=== PATIENT | female | born 1950 | race Caucasian/White ===

== ENCOUNTER → 2016-07-04 | Outpatient (CLI) | payer MEDICARE ==
--- NOTE | 2016-07-04 15:04 | BD ---
EXAMINATION TYPE: MG DEXA axial skeleton. DATE OF EXAM: 07/04/2016 1:49 PM COMPARISON: NONE CLINICAL HISTORY: Osteoporosis screening, Z 13.820 Height: 64 Weight: 127.1 FRAX RISK QUESTIONS: Alcohol (3 or more units per day): no Family History (Parent hip fracture): no Glucocorticoids (More than 3mos): no (Ex: prednisone, prednisolone, methylprednisolone, dexamethasone, and hydrocortisone). History of Fracture in Adulthood: no Secondary Osteoporosis: 1. Type 1 Diabetes: no 2. Hyperthyroidism: no 3. Menopause before 45: yes 4. Malnutrition: no 5. Chronic liver disease: no Rheumatoid Arthritis: no Current Tobacco Use: yes RISK FACTORS HISTORY OF: Hip Fracture (Right/Left): no Spine Fracture: no History of Wrist Fracture: no Surgery to Spine/Hip(right/left)/Wrist (right/left): no Family History of Osteoporosis: no Active: yes Diet low in dairy products/other sources of calcium: yes Postmenopausal woman: around age 41 Lost more than 2 inches in height since high school: no Frequent falls: no Adrenal Insufficiency: no MEDICATIONS: Prednisone or other steroids: How Long: Thyroid Medications: Which medication: How Long: Osteoporosis Medications: Which medication: How Long: Additional Medications: Additional History: EXAM MEASUREMENTS: Bone mineral densitometry was performed using the Tag & See System. Bone mineral density as measured about the Lumbar spine is: ----- L1-L4(G/cm2): 0.893 T Score Values are as follows: ----- L2: -2.5 ----- L3: -1.9 ----- L4: -2.6 ----- L1-L4: --2.4 Bone mineral density has: increased 3.0% since study of: 03.01.2014 Bone mineral density about the R hip (g/cm2): 0.698 Bone mineral density about the L hip (g/cm2): 0.719 T Score values are as follows: -----R Neck: -2.3 -----L Neck: -2.4 -----R Total: -2.8 -----L Total: -2.8 Bone mineral density has: decreased -12.1 % since study of: 03.01.2014 IMPRESSION: Osteopenia NOTE: T-SCORE=SD OF THE YOUNG ADULT MEAN.
--- NOTE | 2016-07-05 15:50 | MM ---
Reason for exam: screening (asymptomatic). Last mammogram was performed 1 year and 2 months ago. History: Patient is postmenopausal. Took estrogen for 10 years. Took progesterone for 10 years. Physical Findings: A clinical breast exam by your physician is recommended on an annual basis and results should be correlated with mammographic findings. MG 3D Screening Mammo W/Cad Bilateral CC and MLO view(s) were taken. Prior study comparison: May 01, 2015, bilateral MG 3d diag mammo w/cad ALESHA. October 26, 2014, right breast MG diagnostic mammo RT w CAD. There are scattered fibroglandular densities. No significant changes when compared with prior studies. ASSESSMENT: Benign, BI-RAD 2 RECOMMENDATION: Routine screening mammogram of both breasts in 1 year.
== END | disposition home or self-care (01) ==
LOC: RADMAMWWP 12:44
PROVIDERS: ATTEND Family Medicine
DX: Z12.31 Encounter for screening mammogram for malignant neoplasm of breast (principal); M85.80 Other specified disorders of bone density and structure, unspecified site
CPT/HCPCS: 77080; 77063; G0202

== ENCOUNTER → 2016-07-05 | Outpatient (CLI) | payer MEDICARE ==
--- NOTE | 2016-07-05 13:03 | CTL ---
EXAMINATION TYPE: CT Low Dose Lung DATE OF EXAM ORDERED: 07/05/2016 12:33 PM HISTORY: Lung cancer screening CT DLP: 47.[address] CTDI: 1.4 mGy Automated exposure control for dose reduction was used. SCREENING VISIT: First COMPARISON: None TECHNIQUE: Low dose computed tomography scan was performed through the chest at 1 mm thick sections a nd reconstructed images in the coronal plane at [address] DIAGNOSTIC QUALITY: Satisfactory FINDINGS: LUNG NODULES: None. LUNGS: COPD: Severity: Severe Fibrosis: Severity: Mild Lymph nodes: Shotty mediastinal lymph nodes Other findings: Apical scarring bilaterally RIGHT PLEURAL SPACE: Effusion: None Calcification: None Thickening: None Pneumothorax: None LEFT PLEURAL SPACE: Effusion: None Calcification: None Thickening: None Pneumothorax: None HEART: Heart Size: Normal Coronary calcification: Mild to moderate Pericardial effusion: None OTHER FINDINGS: Upper abdomen: Normal as seen Bony thorax: Sclerotic endplate changes Supraclavicular region: Unremarkable Other: None IMPRESSION: 1. SEVERE COPD AND EMPHYSEMATOUS CHANGE WITH MILD FIBROSIS. 2. MILD TO MODERATE CORONARY ARTERY CALCIFICATION. FOLLOW UP CT CHEST RECOMMENDATION: [address] LUNG RAD: 1
== END | disposition home or self-care (01) ==
LOC: RADCTMAIN 11:17
PROVIDERS: ATTEND Family Medicine
DX: Z12.2 Encounter for screening for malignant neoplasm of respiratory organs (principal); J43.9 Emphysema, unspecified; J84.10 Pulmonary fibrosis, unspecified; I25.10 Atherosclerotic heart disease of native coronary artery without angina pectoris; Z87.891 Personal history of nicotine dependence

== ENCOUNTER → 2017-07-22 | Outpatient (CLI) | payer MEDICARE ==
--- NOTE | 2017-07-24 12:06 | MM ---
Reason for exam: screening (asymptomatic). Last mammogram was performed 1 year and 1 month ago. History: Patient is postmenopausal. Took estrogen for 10 years. Took progesterone for 10 years. Physical Findings: A clinical breast exam by your physician is recommended on an annual basis and results should be correlated with mammographic findings. MG Screening Mammo w CAD Bilateral CC and MLO view(s) were taken. Prior study comparison: July 04, 2016, bilateral MG 3d screening mammo w/cad. May 01, 2015, bilateral MG 3d diag mammo w/cad ALESHA. The breast tissue is heterogeneously dense. This may lower the sensitivity of mammography. No significant changes when compared with prior studies. ASSESSMENT: Benign, BI-RAD 2 RECOMMENDATION: Routine screening mammogram of both breasts in 1 year.
== END | disposition home or self-care (01) ==
LOC: RADMAMWWP 07:34
PROVIDERS: ATTEND Family Medicine
DX: Z12.31 Encounter for screening mammogram for malignant neoplasm of breast (principal)
CPT/HCPCS: 77067

== ENCOUNTER → 2018-07-31 | Outpatient (CLI) | payer MEDICARE ==
--- NOTE | 2018-07-31 11:58 | BD ---
EXAMINATION TYPE: Axial Bone Density DATE OF EXAM: 07/31/2018 COMPARISON: 07.04.2016 CLINICAL HISTORY: 67 YR OLD FEMALE ICD-10 CODE: M81.0 OSTEOPOROSIS Height: 62.5 Weight: 144 FRAX RISK QUESTIONS: Glucocorticoids (More than 3mos): YES (Ex: prednisone, prednisolone, methylprednisolone, dexamethasone, and hydrocortisone). History of Fracture in Adulthood: YES Current Tobacco Use: YES RISK FACTORS HISTORY OF: HX OF FOOT FX > 50 YRS OLD History of Wrist Fracture: RT [employer] CHILD Family History of Osteoporosis: UNSURE Diet low in dairy products/other sources of calcium: YES Postmenopausal woman: YES, HYST AT 49 YRS OLD Take estrogen and/or progesterone medications: YES, FOR 10 YRS IN THE PAST Lost more than 2 inches in height since high school: YES MEDICATIONS: Prednisone or other steroids: COPD INHALERS, AND ORAL STEROIDS FOR MANY YRS Osteoporosis Medications: PROLIA, FOR A LONG TIME Additional Medications: CALCIUM AND VIT D, REFLUX MEDS Additional History: REFLUX, COPD, OSTEOPOROSIS EXAM MEASUREMENTS: Bone mineral densitometry was performed using the Post-i System. Bone mineral density as measured about the Lumbar spine is: ----- L1-L4(G/cm2): 0.965 T Score Values are as follows: ----- L1: -2.2 ----- L2: -1.7 ----- L3: -1.0 ----- L4: -2.3 ----- L1-L4: -1.8 Bone mineral density has: Increased 7.9% since study of: 07.04.2016 Bone mineral density about the R hip (g/cm2): 0.698 Bone mineral density about the L hip (g/cm2): 0.700 T Score values are as follows: -----R Neck: -2.7 -----L Neck: -2.8 -----R Total: - 2.5 -----L Total: -2.4 Bone mineral density has: Increased 6.7% since study of: 07.04.2016 FRAX%s: THERE IS A 41.9% CHANCE FOR A MAJOR OSTEOPOROTIC FX AND A 20.2% FOR HIP....PROBABILITY FOR FX IN 10 YRS TIME IMPRESSION: Osteoporosis (T Score less than -2.5). There is increased fracture risk and therapy is usually indicated based on age. Re-Screen 1-2 years. NOTE: T-SCORE=SD OF THE YOUNG ADULT MEAN.
--- NOTE | 2018-08-03 08:58 | MM ---
Reason for exam: screening (asymptomatic). Last mammogram was performed 1 year ago. History: Patient is postmenopausal. Took estrogen for 10 years. Took progesterone for 10 years. Physical Findings: A clinical breast exam by your physician is recommended on an annual basis and results should be correlated with mammographic findings. MG 3D Screening Mammo W/Cad Bilateral CC and MLO view(s) were taken. Prior study comparison: July 22, 2017, bilateral MG screening mammo w CAD. July 04, 2016, bilateral MG 3d screening mammo w/cad. The breast tissue is heterogeneously dense. This may lower the sensitivity of mammography. Benign appearing bilateral calcifications. No suspicious abnormality. No significant changes when compared with prior studies. ASSESSMENT: Benign, BI-RAD 2 RECOMMENDATION: Routine screening mammogram of both breasts in 1 year.
== END | disposition home or self-care (01) ==
LOC: RADMAMWWP 09:17
PROVIDERS: ATTEND Family Medicine
DX: Z12.31 Encounter for screening mammogram for malignant neoplasm of breast (principal); M81.0 Age-related osteoporosis without current pathological fracture
CPT/HCPCS: 77063; 77067; 77080

== ENCOUNTER → 2019-10-15 | Outpatient (CLI) | payer MEDICARE ==
--- NOTE | 2019-10-15 10:08 | US ---
EXAMINATION TYPE: US abdomen complete DATE OF EXAM: 10/15/2019 COMPARISON: CT CLINICAL HISTORY: D73.9 CYST OF SPLEEN. Cyst visualized on spleen EXAM MEASUREMENTS: Liver Length: 16.7 cm Gallbladder Wall: 0.2 cm CBD: 0.5 cm Spleen: 8.9 cm Right Kidney: 12.0 x 4.9 x 4.9 cm Left Kidney: 6.1 x 3.0 x 2.9 cm Pancreas: wnl Liver: wnl Gallbladder: wnl Evidence for sonographic Virk's sign: No CBD: wnl Spleen: Cyst= 4.4 x 3.6 x 3.8 cm Right Kidney: wnl Left Kidney: Appeared atrophic Upper IVC: wnl Abd Aorta: wnl, distal portion gassed out IMPRESSION: 1. Splenic cyst. 2. Atrophy of the left kidney
== END | disposition home or self-care (01) ==
LOC: RADUSWWP 09:29
PROVIDERS: ATTEND Family Medicine
DX: D73.4 Cyst of spleen (principal); N26.1 Atrophy of kidney (terminal)
CPT/HCPCS: 76700

== ENCOUNTER 2020-04-10 11:46 | Observation (INO) | payer MEDICARE ==
[2020-04-10] MEDS ORDERED: IPRATROPIUM-ALBUTEROL 3 ML NEB INHALATION STA ×2 (12:02→14:22)
[2020-04-10] MEDS ORDERED: methylPREDNISolone SOD SUCCI 125 MG/2 ML VIAL IV STA (12:02)
--- NOTE | 2020-04-10 12:13 | ED ---
General Adult HPI - General Chief complaint: Shortness of Breath Stated complaint: SOB Time Seen by Provider: 04/10/20 11:52 Source: patient, family, RN notes reviewed Mode of arrival: wheelchair Limitations: no limitations - History of Present Illness Initial comments: 69-year-old female presented from from PCPs office chief complaint shortness of breath. Patient has COPD and currently smokes. Patient's been having increased shortness with the last several weeks she did take a fall over a week or 2 ago which she states she injured her left side of her ribs. Patient states that she has not had any pleuritic pain this time. Patient denies any fever, chills or body aches. No leg swelling no history of CHF. Patient denies any headache, dizziness. - Related Data Home Medications Medication Instructions Recorded Confirmed Mometasone/Formoterol [Dulera 200 2 puff INHALATION RT-BID 05/13/14 04/10/20 Mcg/5 Mcg Inhaler] Omeprazole [PriLOSEC] 20 mg PO AC-SUPPER 04/26/15 04/10/20 Albuterol Sulfate [Proair Hfa] 1 - 2 puff INHALATION RT-Q6H PRN 04/10/20 04/10/20 Denosumab [Prolia] 60 mg SQ Q180D 04/10/20 04/10/20 Tiotropium 18 Mcg/Puff [Spiriva] 1 puff INHALATION RT-DAILY 04/10/20 04/10/20 Allergies Allergy/AdvReac Type Severity Reaction Status Date / Time No Known Allergies Allergy Verified 04/10/20 13:15 Review of Systems ROS Statement: Those systems with pertinent positive or pertinent negative responses have been documented in the HPI. ROS Other: All systems not noted in ROS Statement are negative. Past Medical History Past Medical History: COPD Additional Past Medical History / Comment(s): STATES ONLY 1 WORKING KIDNEY, HIATAL HERNIA, DIFFICULTY SWALLOWING. History of Any Multi-Drug Resistant Organisms: None Reported Past Surgical History: Hernia Repair, Hysterectomy Additional Past Surgical History / Comment(s): INGUINAL HERNIA. Past Anesthesia/Blood Transfusion Reactions: Postoperative Nausea & Vomiting (PONV) Past Psychological History: No Psychological Hx Reported Smoking Status: Current every day smoker Past Alcohol Use History: Rare Past Drug Use History: None Reported General Exam Limitations: no limitations General appearance: alert, in no apparent distress Head exam: Present: atraumatic, normocephalic, normal inspection Eye exam: Present: normal appearance, PERRL, EOMI. Absent: scleral icterus, conjunctival injection, periorbital swelling ENT exam: Present: normal exam, mucous membranes moist Neck exam: Present: normal inspection. Absent: tenderness, meningismus, lymphadenopathy Respiratory exam: Present: respiratory distress (Moderate), wheezes, decreased breath sounds. Absent: normal lung sounds bilaterally, rales, rhonchi, stridor Cardiovascular Exam: Present: normal rhythm, tachycardia, normal heart sounds. Absent: systolic murmur, diastolic murmur, rubs, gallop, clicks GI/Abdominal exam: Present: soft, normal bowel sounds. Absent: distended, tenderness, guarding, rebound, rigid Back exam: Absent: CVA tenderness (R), CVA tenderness (L) Neurological exam: Present: alert, oriented X3, CN II-XII intact Skin exam: Present: warm, dry, intact, normal color. Absent: rash Course Vital Signs 04/10/20 11:46 Temperature 98.5 F Pulse Rate 104 H Respiratory 28 H Rate Blood Pressure 147/76 O2 Sat by Pulse 85 L Oximetry EKG Findings - EKG Comments: EKG Findings:: EKG performed at 12:05 normal sinus rhythm rate of 100 LA 116 QRS 72 QT status QTC 352/454 Medical Decision Making - Medical Decision Making 61-year-old presented for shortness breath. Patient's found to be hypoxic upon arrival. Patient does have Severe COPD 3 patient continues to have difficulty completing sentences with her shortness of breath sSignificantlyly improved after DuoNeb treatment, steroids. Patient will be admitted for further treatment and management. - Lab Data Result diagrams: 04/10/20 12:06 04/10/20 12:06 Lab Results 04/10/20 04/10/20 04/10/20 Range/Units 12:06 12:06 12:06 WBC 11.3 H (3.8-10.6) k/uL RBC 5.10 (3.80-5.40) m/uL Hgb 15.2 (11.4-16.0) gm/dL Hct 47.8 H (34.0-46.0) % MCV 93.6 (80.0-100.0) fL MCH 29.7 (25.0-35.0) pg MCHC 31.7 (31.0-37.0) g/dL RDW 14.3 (11.5-15.5) % Plt Count 316 (150-450) k/uL MPV 7.4 Neutrophils % 80 % Lymphocytes % 14 % Monocytes % 4 % Eosinophils % 2 % Basophils % 1 % Neutrophils # 9.0 H (1.3-7.7) k/uL Lymphocytes # 1.5 (1.0-4.8) k/uL Monocytes # 0.4 (0-1.0) k/uL Eosinophils # 0.2 (0-0.7) k/uL Basophils # 0.1 (0-0.2) k/uL PT 9.9 (9.0-12.0) sec INR 0.9 (<1.2) APTT 24.8 (22.0-30.0) sec Sodium 140 (137-145) mmol/L Potassium 5.4 H (3.5-5.1) mmol/L Chloride 103 (98-107) mmol/L Carbon Dioxide 27 (22-30) mmol/L Anion Gap 10 mmol/L BUN 26 H (7-17) mg/dL Creatinine 0.92 (0.52-1.04) mg/dL Est GFR (CKD-EPI)AfAm 74 (>60 ml/min/1.73 sqM) Est GFR (CKD-EPI)NonAf 64 (>60 ml/min/1.73 sqM) Glucose 118 H (74-99) mg/dL Plasma Lactic Acid Javier (0.7-2.0) mmol/L Calcium 9.9 (8.4-10.2) mg/dL Magnesium 1.8 (1.6-2.3) mg/dL Total Bilirubin 0.8 (0.2-1.3) mg/dL AST 39 H (14-36) U/L ALT 23 (4-34) U/L Alkaline Phosphatase 60 (38-126) U/L Troponin I (0.000-0.034) ng/mL NT-Pro-B Natriuret Pep pg/mL Total Protein 7.9 (6.3-8.2) g/dL Albumin 4.1 (3.5-5.0) g/dL 04/10/20 04/10/20 04/10/20 Range/Units 12:06 12:06 12:06 WBC (3.8-10.6) k/uL RBC (3.80-5.40) m/uL Hgb (11.4-16.0) gm/dL Hct (34.0-46.0) % MCV (80.0-100.0) fL MCH (25.0-35.0) pg MCHC (31.0-37.0) g/dL RDW (11.5-15.5) % Plt Count (150-450) k/uL MPV Neutrophils % % Lymphocytes % % Monocytes % % Eosinophils % % Basophils % % Neutrophils # (1.3-7.7) k/uL Lymphocytes # (1.0-4.8) k/uL Monocytes # (0-1.0) k/uL Eosinophils # (0-0.7) k/uL Basophils # (0-0.2) k/uL PT (9.0-12.0) sec INR (<1.2) APTT (22.0-30.0) sec Sodium (137-145) mmol/L Potassium (3.5-5.1) mmol/L Chloride (98-107) mmol/L Carbon Dioxide (22-30) mmol/L Anion Gap mmol/L BUN (7-17) mg/dL Creatinine (0.52-1.04) mg/dL Est GFR (CKD-EPI)AfAm (>60 ml/min/1.73 sqM) Est GFR (CKD-EPI)NonAf (>60 ml/min/1.73 sqM) Glucose (74-99) mg/dL Plasma Lactic Acid Javier 1.2 (0.7-2.0) mmol/L Calcium (8.4-10.2) mg/dL Magnesium (1.6-2.3) mg/dL Total Bilirubin (0.2-1.3) mg/dL AST (14-36) U/L ALT (4-34) U/L Alkaline Phosphatase (38-126) U/L Troponin I <0.012 (0.000-0.034) ng/mL NT-Pro-B Natriuret Pep 210 pg/mL Total Protein (6.3-8.2) g/dL Albumin (3.5-5.0) g/dL Disposition Clinical Impression: COPD with exacerbation, Hypoxia Disposition: ADMITTED IP TO THIS HOSP Condition: Poor Is patient prescribed a controlled substance at d/c from ED?: No Referrals: Carolyn Mahmood DO [Primary Care Provider] - 1-2 days
[2020-04-10] MEDS ORDERED: TIOTROPIUM 2.5 MCG INHALER (MHU) INHALATION ONE (12:30)
[2020-04-10] MEDS ORDERED: ALBUTEROL HFA INHALER INHALATION ONE (12:30)
[2020-04-10 12:44] LABS: Basophils # (A) 0.1 k/uL (0-0.2); Basophils % (A) 1 %; Eosinophils # (A) 0.2 k/uL (0-0.7); Eosinophils % (A) 2 %; HCT 47.8 % (34.0-46.0); HGB 15.2 gm/dL (11.4-16.0); Lymphocytes # (A) 1.5 k/uL (1.0-4.8); Lymphocytes % (A) 14 %; MCH 29.7 pg (25.0-35.0); MCHC 31.7 g/dL (31.0-37.0); MCV 93.6 fL (80.0-100.0); Mean Platelet Volume 7.4; Monocytes # (A) 0.4 k/uL (0-1.0); Monocytes % (A) 4 %; Neutrophils % (A) 80 %; Platelet Count 316 k/uL (150-450); RDW 14.3 % (11.5-15.5); WBC 11.3 k/uL (3.8-10.6)
[2020-04-10 12:51] LABS: INR 0.9 (<1.2); Partial Thromboplastin Time 24.8 sec (22.0-30.0); Prothrombin Time 9.9 sec (9.0-12.0)
--- NOTE | 2020-04-10 13:02 | XR ---
EXAMINATION TYPE: XR chest 2V DATE OF EXAM: 04/10/2020 COMPARISON: 07/29/2011 HISTORY: 65-year-old female shortness of breath, cough, difficulty breathing TECHNIQUE: PA and lateral views FINDINGS: Leftward patient rotation alters normal cardiac and mediastinal contours. Heart appears normal size. Relative upper lung lucencies. Diffuse interstitial prominence with some patchy bilateral infrahilar opacities. Hyperinflation. No pleural effusion. IMPRESSION: Limited rotated exam. COPD would moderate to advanced emphysema. Interstitial changes could reflect b ronchitis or chronic asthma. If concern for early atypical pneumonia follow-up can be performed.
[2020-04-10 13:03] LABS: Albumin 4.1 g/dL (3.5-5.0); Calcium 9.9 mg/dL (8.4-10.2); Magnesium 1.8 mg/dL (1.6-2.3); Total Bilirubin 0.8 mg/dL (0.2-1.3); Total Protein 7.9 g/dL (6.3-8.2)
[2020-04-10 13:09] LABS: Potassium 5.4 mmol/L (3.5-5.1)
[2020-04-10] MEDS ORDERED: guaiFENesin-DM 100-10MG/5ML 10 ML CUP PO PRN (15:10)
[2020-04-10] MEDS ORDERED: DENOSUMAB 60 MG/ML 1 ML SYRINGE SQ SCH (15:15)
[2020-04-10] MEDS: AZITHROMYCIN 500 MG TAB PO SCH (16:24)
[2020-04-10] MEDS: PANTOPRAZOLE 40 MG TABLET PO SCH (17:46)
[2020-04-10] MEDS: SYMBICORT 160-4.5 MCG INHALER INHALATION SCH (19:55)
[2020-04-10] MEDS: IPRATROPIUM-ALBUTEROL 3 ML NEB INHALATION SCH (19:55)
[2020-04-10] MEDS: methylPREDNISolone SOD SUCCI 40 MG/ML 1 ML VIAL IV SCH (21:03)
[2020-04-11] MEDS: SYMBICORT 160-4.5 MCG INHALER INHALATION SCH ×2 (09:58→19:50)
[2020-04-11] MEDS: IPRATROPIUM-ALBUTEROL 3 ML NEB INHALATION SCH ×4 (09:58→19:50)
[2020-04-11] MEDS: methylPREDNISolone SOD SUCCI 40 MG/ML 1 ML VIAL IV SCH ×2 (10:03→16:09)
[2020-04-11] MEDS: AZITHROMYCIN 500 MG TAB PO SCH (10:03)
[2020-04-11 11:48] LABS: HCT 46.2 % (37.2-46.3); HGB 14.1 g/dL (12.0-15.0); MCH 29.1 pg (27.0-32.0); MCHC 30.5 g/dL (32.0-37.0); MCV 95.3 fL (80.0-97.0); Platelet Count 320 X 10*3/uL (140-440); RBC 4.85 X 10*6/uL (4.10-5.20); RDW 14.8 % (11.5-14.5); WBC 6.27 X 10*3/uL (4.50-10.00)
[2020-04-11 12:07] LABS: African American GFR (CKD) 59.7 (60.0-200.0); Anion Gap 9.4 mmol/L (4.00-12.00); BUN/Creat Ratio 32.73 Ratio (12.00-20.00); Calcium 9.2 mg/dL (8.7-10.3); Carbon Dioxide 27.6 mmol/L (21.6-31.8); Non-African American GFR(CKD) 51.5 (60.0-200.0); Potassium 5.2 mmol/L (3.5-5.5)
[2020-04-11] MEDS: DOXYCYCLINE 100 MG CAP PO SCH ×2 (13:24→20:34)
--- NOTE | 2020-04-11 13:31 | P.CNPUL ---
History of Present Illness Consult date: 04/11/20 Reason for consult: dyspnea, cough Chief complaint: Dyspnea, cough, left rib pain History of present illness: 69-year-old white female patient of Dr. Rosenberg, with known history of COPD, current smoker, GERD/reflux, patient had a baseline FEV1 of around 30%, and used to follow with Dr. Lemus in the pulmonary clinic. Patient had a fall on the ice a week or 2 ago and she had fallen on her left side of her ribs. She is still experiencing pain and tenderness over the left lateral rib area. She has been having increasing shortness of breath, cough, and phlegm production. No fever, chills, no body aches, no lower extremity swelling, or pain, no headaches. Patient's maintenance inhalers include Dulera, Spiriva, and Pro-air. Denied any hemoptysis, chest x-ray in the ER showed a moderate to advanced emphysema, interstitial changes with the possibility of mild chronic scarring, or bronchitis. EKG showed normal sinus rhythm with nonspecific ST and T-wave abnormality. Patient tested negative for COVID 19. Admission blood work showed a white blood cell count of 11.3, hemoglobin is 15.2, coordination profile was within normal limits, potassium is 5.4, and depressive electrolytes and renal profile were unremarkable, plasma lactic acid was 1.2. Troponin was less than 0.012, proBNP was within normal limits at 210. Patient has congested cough, lung sounds are diminished, she is very short of breath with exertion, patient is not normally oxygen dependent, however her pulse ox is around 80 to percent on room air, and patient had significant exertional dyspnea. Review of Systems All systems: negative Constitutional: Denies chills, Denies fever Eyes: denies blurred vision, denies pain Ears, nose, mouth and throat: Denies headache, Denies sore throat Cardiovascular: Reports chest pain, Denies shortness of breath Respiratory: Reports dyspnea, Reports pain on inspiration, Denies cough Gastrointestinal: Denies abdominal pain, Denies diarrhea, Denies nausea, Denies vomiting Genitourinary: Denies dysuria, Denies hematuria Musculoskeletal: Denies myalgias Integumentary: Denies pruritus, Denies rash Neurological: Denies numbness, Denies weakness Psychiatric: Denies anxiety, Denies depression Endocrine: Denies fatigue, Denies weight change Past Medical History Past Medical History: COPD Additional Past Medical History / Comment(s): STATES ONLY 1 WORKING KIDNEY, HIATAL HERNIA, DIFFICULTY SWALLOWING. History of Any Multi-Drug Resistant Organisms: None Reported Past Surgical History: Hernia Repair, Hysterectomy Additional Past Surgical History / Comment(s): INGUINAL HERNIA. Past Anesthesia/Blood Transfusion Reactions: Postoperative Nausea & Vomiting (PONV) Past Psychological History: No Psychological Hx Reported Smoking Status: Current every day smoker Past Alcohol Use History: Rare Additional Past Alcohol Use History / Comment(s): QUIT SMOKING FEB 2014 Past Drug Use History: None Reported Medications and Allergies Home Medications Medication Instructions Recorded Confirmed Type Mometasone/Formoterol [Dulera 200 2 puff INHALATION RT-BID 05/13/14 04/10/20 History Mcg/5 Mcg Inhaler] Omeprazole [PriLOSEC] 20 mg PO AC-SUPPER 04/26/15 04/10/20 History Albuterol Sulfate [Proair Hfa] 1 - 2 puff INHALATION RT-Q6H PRN 04/10/20 04/10/20 History Denosumab [Prolia] 60 mg SQ Q180D 04/10/20 04/10/20 History Tiotropium 18 Mcg/Puff [Spiriva] 1 puff INHALATION RT-DAILY 04/10/20 04/10/20 History Allergies Allergy/AdvReac Type Severity Reaction Status Date / Time No Known Allergies Allergy Verified 04/10/20 13:15 Physical Exam Vitals: Vital Signs Temp Pulse Pulse Resp BP BP Pulse Ox 04/11/20 10:11 92 04/11/20 10:00 96 04/11/20 09:59 88 04/11/20 07:00 98.6 F 77 18 120/70 97 04/11/20 02:00 98.0 F 71 18 118/69 98 04/10/20 20:10 92 04/10/20 20:00 98.6 F 98 16 119/75 91 L 04/10/20 19:56 90 04/10/20 18:50 98 22 04/10/20 18:03 98 F 100 22 113/70 91 L 04/10/20 16:29 94 20 116/80 93 L 04/10/20 15:26 90 04/10/20 15:10 92 04/10/20 14:47 97.8 F 94 22 122/98 92 L Intake and Output 04/10/20 04/11/20 04/11/20 22:59 06:59 14:59 Intake Total 240 222 Balance 240 222 Intake: Oral 240 222 Other: Voiding Method Toilet Toilet # Voids 2 1 1 Weight 63.503 kg GENERAL EXAM: Alert, very pleasant, 69-year-old white female, 4 L of oxygen with pulse ox of 97%, on room air pulse ox is 80-82%, patient has significant exertional dyspnea walking in the room, takes a while to recover, she has conversational dyspnea, and she can only speak in short sentences related to dyspnea HEAD: Normocephalic/atraumatic. EYES: Normal reaction of pupils, equal size. Conjunctiva pink, sclera white. NOSE: Clear with pink turbinates. THROAT: No erythema or exudates. NECK: No masses, no JVD, no thyroid enlargement, no adenopathy. CHEST: No chest wall deformity. Symmetrical expansion. Patient has significant left lateral rib tenderness with light palpation LUNGS: Diminished air entry bilateral, no wheezes no crackles CVS: Regular rate and rhythm, normal S1 and S2, no gallops, no murmurs, no rubs ABDOMEN: Soft, nontender. No hepatosplenomegaly, normal bowel sounds, no guarding or rigidity. EXTREMITIES: No clubbing, no edema, no cyanosis, 2+ pulses and upper and lower extremities. MUSCULOSKELETAL: Muscle strength and tone normal. SPINE: No scoliosis or deformity SKIN: No rashes CENTRAL NERVOUS SYSTEM: Alert and oriented -3. No focal deficits, tone is normal in all 4 extremities. PSYCHIATRIC: Alert and oriented -3. Appropriate affect. Intact judgment and insight. Results - Laboratory Findings CBC and BMP: 04/11/20 04:24 04/11/20 04:24 PT/INR, D-dimer PT 9.9 sec (9.0-12.0) 04/10/20 12:06 INR 0.9 (<1.2) 04/10/20 12:06 Abnormal lab findings: Abnormal Labs 04/10/20 04/10/20 04/10/20 12:06 12:06 23:36 WBC 11.3 H Hct 47.8 H MCHC RDW Neutrophils # 9.0 H Potassium 5.4 H 5.2 H BUN 26 H Est GFR (CKD-EPI)AfAm Est GFR (CKD-EPI)NonAf BUN/Creatinine Ratio Glucose 118 H AST 39 H 04/11/20 04/11/20 04:24 04:24 WBC Hct MCHC 30.5 L RDW 14.8 H Neutrophils # Potassium BUN 36.0 H Est GFR (CKD-EPI)AfAm 59.7 L Est GFR (CKD-EPI)NonAf 51.5 L BUN/Creatinine Ratio 32.73 H Glucose 173 H AST - Diagnostic Findings Chest x-ray: report reviewed, image reviewed Additional studies: EKG reviewed Assessment and Plan Plan: Assessment: #1. Acute hypoxic respiratory failure related to acute exacerbation of COPD, COVID 19 negative #2. Left rib pain and tenderness, patient had a fall 2 weeks ago on the ice landing on her left chest #3. Chronic and ongoing history of smoking #4. History of GERD/reflux #5. Advanced COPD, patient's FEV1 was around 30% 2 years ago not oxygen dependent at baseline Plan: We'll add doxycycline, stop azithromycin, we'll add IV steroids 40 mg every 8 hours, continue DuoNeb breathing treatments, continue Robitussin, chest x-ray has been reviewed, we'll obtain CT chest without contrast to rule out possibi lity of pulmonary contusion in the left chest for possibility of broken ribs in the left chest related to her history of recent fall on the ice. We'll continue to follow I performed a history & physical examination of the patient and discussed their management with my nurse practitioner, Betsey Kitchen. I reviewed the nurse practitioner's note and agree with the documented findings and plan of care. Lung sounds are positive for diminished breath sounds. The findings and the impression was discussed with the patient. I attest to the documentation by the nurse practitioner. Time with Patient: Greater than 30
--- NOTE | 2020-04-11 14:50 | P.PN ---
Subjective 69-year-old pleasant female was admitted secondary to COPD exacerbation can use to have shortness of breath presently on 4 L of onset and which will be tapered down. Patient has musculoskeletal pain on the left side of the chest because of trauma and coughing. Constitutional: Denied any fatigue denied any fever. Cardio vascular: denied any chest pain, palpitations Gastrointestinal denied any nausea vomiting Pulmonary: Can use to be short of breath Neurologic denied any new focal deficits All inpatient medications were reviewed and appropriate changes in these medications as dictated in the interval history and assessment and plan. Objective - Vital Signs Vital signs: Vital Signs Temp 98.6 F 04/11/20 14:45 Pulse 88 04/11/20 14:45 Resp 18 04/11/20 14:45 BP 131/63 04/11/20 14:45 Pulse Ox 93 L 04/11/20 14:45 Intake & Output 04/10/20 04/11/20 04/11/20 18:59 06:59 18:59 Intake Total 240 942 Balance 240 942 Weight 63.503 kg 63.503 kg Intake: Oral 240 942 Other: Voiding Method Toilet Toilet # Voids 1 2 - Exam PHYSICAL EXAMINATION: GENERAL: The patient is alert and oriented x3, not in any acute distress. Well developed, well nourished. HEENT: Pupils are round and equally reacting to light. EOMI. No scleral icterus. No conjunctival pallor. Normocephalic, atraumatic. No pharyngeal erythema. No thyromegaly. CARDIOVASCULAR: S1 and S2 present. No murmurs, rubs, or gallops. PULMONARY: Diminished air entry no significant wheezing or crackles were appreciated ABDOMEN: Soft, nontender, nondistended, normoactive bowel sounds. No palpable organomegaly. MUSCULOSKELETAL: No joint swelling or deformity. EXTREMITIES: No cyanosis, clubbing, or pedal edema. NEUROLOGICAL: Gross neurological examination did not reveal any focal deficits. SKIN: No rashes. - Labs CBC & Chem 7: 04/11/20 04:24 04/11/20 04:24 Labs: Abnormal Lab Results - Last 24 Hours (Table) 04/10/20 04/11/20 04/11/20 Range/Units 23:36 04:24 04:24 MCHC 30.5 L (32.0-37.0) g/dL RDW 14.8 H (11.5-14.5) % Potassium 5.2 H (3.5-5.1) mmol/L BUN 36.0 H (9.0-27.0) mg/dL Est GFR (CKD-EPI)AfAm 59.7 L (60.0-200.0) Est GFR (CKD-EPI)NonAf 51.5 L (60.0-200.0) BUN/Creatinine Ratio 32.73 H (12.00-20.00) Ratio Glucose 173 H (70-110) mg/dL Assessment and Plan Plan: -Acute hypoxic and hypercapnic respiratory failure secondary to COPD exacerbation. Can use this with steroids inhalational treatments -Left rib pain and tenderness secondary to recent fall and coughing. -Nicotine use: Counseling was provided -Gastroesophageal reflux disease -Bactrim bronchitis: Patient is on doxycycline
--- NOTE | 2020-04-11 14:52 | P.HPIM ---
History of Present Illness Patient is an 69-year-old female doesn't use any oxygen at home known history of COPD continues to smoke came in with the complaints of shortness of breath has been going on for about a week much worse for couple days. Patient also complaining of some pleuritic pain because of significant coughing patient is coughing quite a bit chest x-ray did not show any significant pneumonia patient is on doxycycline for bronchitis. Review of Systems REVIEW OF SYSTEMS: CONSTITUTIONAL: No fever, no malaise, no fatigue. HEENT: No recent visual problems or hearing problems. Denied any sore throat. CARDIOVASCULAR: No chest pain, orthopnea, PND, no palpitations, no syncope. PULMONARY: Patient has shortness of breath no hemoptysis. GASTROINTESTINAL: No diarrhea, no nausea, no vomiting, no abdominal pain. NEUROLOGICAL: No headaches, no weakness, no numbness. HEMATOLOGICAL: Denies any bleeding or petechiae. GENITOURINARY: Denies any burning micturition, frequency, or urgency. MUSCULOSKELETAL/RHEUMATOLOGICAL: Denies any joint pain, swelling, or any muscle pain. ENDOCRINE: Denies any polyuria or polydipsia. The rest of the 14-point review of systems is negative. Past Medical History Past Medical History: COPD Additional Past Medical History / Comment(s): STATES ONLY 1 WORKING KIDNEY, HIATAL HERNIA, DIFFICULTY SWALLOWING. History of Any Multi-Drug Resistant Organisms: None Reported Past Surgical History: Hernia Repair, Hysterectomy Additional Past Surgical History / Comment(s): INGUINAL HERNIA. Past Anesthesia/Blood Transfusion Reactions: Postoperative Nausea & Vomiting (PONV) Past Psychological History: No Psychological Hx Reported Smoking Status: Current every day smoker Past Alcohol Use History: Rare Past Drug Use History: None Reported Medications and Allergies Home Medications Medication Instructions Recorded Confirmed Type Mometasone/Formoterol [Dulera 200 2 puff INHALATION RT-BID 05/13/14 04/10/20 History Mcg/5 Mcg Inhaler] Omeprazole [PriLOSEC] 20 mg PO AC-SUPPER 04/26/15 04/10/20 History Albuterol Sulfate [Proair Hfa] 1 - 2 puff INHALATION RT-Q6H PRN 04/10/20 04/10/20 History Denosumab [Prolia] 60 mg SQ Q180D 04/10/20 04/10/20 History Tiotropium 18 Mcg/Puff [Spiriva] 1 puff INHALATION RT-DAILY 04/10/20 04/10/20 History Allergies Allergy/AdvReac Type Severity Reaction Status Date / Time No Known Allergies Allergy Verified 04/10/20 13:15 Physical Exam Vitals: Vital Signs Temp Pulse Resp BP Pulse Ox 04/10/20 16:29 94 20 116/80 93 L 04/10/20 15:26 90 04/10/20 15:10 92 04/10/20 14:47 97.8 F 94 22 122/98 92 L 04/10/20 11:46 98.5 F 104 H 28 H 147/76 85 L Intake and Output 04/10/20 04/10/20 04/10/20 06:59 14:59 22:59 Other: Weight 63.503 kg PHYSICAL EXAMINATION: GENERAL: The patient is alert and oriented x3, Well developed, well nourished. HEENT: Pupils are round and equally reacting to light. EOMI. No scleral icterus. No conjunctival pallor. Normocephalic, atraumatic. No pharyngeal erythema. No thyromegaly. CARDIOVASCULAR: S1 and S2 present. No murmurs, rubs, or gallops. PULMONARY: Patient has decreased air entry with expiratory wheezing visibly short of breath and acute respiratory distress ABDOMEN: Soft, nontender, nondistended, normoactive bowel sounds. No palpable organomegaly. MUSCULOSKELETAL: No joint swelling or deformity. EXTREMITIES: No cyanosis, clubbing, or pedal edema. NEUROLOGICAL: Gross neurological examination did not reveal any focal deficits. SKIN: No rashes. Results CBC & Chem 7: 04/11/20 04:24 04/11/20 04:24 Labs: Abnormal Lab Results - Last 24 Hours (Table) 04/10/20 04/10/20 Range/Units 12:06 12:06 WBC 11.3 H (3.8-10.6) k/uL Hct 47.8 H (34.0-46.0) % Neutrophils # 9.0 H (1.3-7.7) k/uL Potassium 5.4 H (3.5-5.1) mmol/L BUN 26 H (7-17) mg/dL Glucose 118 H (74-99) mg/dL AST 39 H (14-36) U/L Assessment and Plan Plan: -Acute hypoxic and hypercapnic respiratory failure secondary to COPD exacerbation. Can use this with steroids inhalational treatments -Left rib pain and tenderness secondary to recent fall and coughing. -Nicotine use: Counseling was provided -Gastroesophageal reflux disease -Bactrim bronchitis: Patient is on doxycycline -DVT prophylaxis with Lovenox
--- NOTE | 2020-04-11 16:14 | CT ---
Comment seen on 11/06/2012 however. EXAMINATION TYPE: CT chest wo con DATE OF EXAM: 04/11/2020 COMPARISON: 09/22/2019 and 07/05/2016 HISTORY: 69-year-old female shortness of breath, Dyspnea. TECHNIQUE: Contiguous axial scanning of the chest without IV contrast. Coronal and sagittal reconstru ctions performed. CT DLP: 137.3 mGycm Automated exposure control for dose reduction was used. FINDINGS: Heart normal size without pericardial effusion. Three-vessel coronary artery calcifications are prese nt. Aorta normal caliber with variant direct takeoff of the left vertebral artery directly from the aorti c arch. Scattered mild atherosclerotic arch calcifications are present. 7 mm precarinal lymph node is unchanged. No thoracic lymphadenopathy by CT size criteria. Moderately advanced emphysema redemonstrated. There is opacity and volume loss within the right middl e lobe, new from 09/22/2019 5 mm subpleural pulmonary nodule posterior left midlung unchanged from 2017. Some patchy posterior left midlung opacity, axial image 34. Some adherent mucus/debris within the left mainstem bronchus. Otherwise, no additional consolidation or pleural effusion is seen. Tiny hiatal hernia. A 4.2 cm splenic cyst is redemonstrated. Partially visualized 3 mm nonobstructiv e right renal calculus. Atrophic left kidney. Bones: There is an anterior compression deformity of T7 which was present on 09/22/2019 but shows slig ht progressive anterior wedging as compared to that time. IMPRESSION: 1. COPD WITH MODERATE TO ADVANCED EMPHYSEMA. 2. NEW VOLUME LOSS AND CONSOLIDATION WITHIN THE RIGHT MIDDLE LOBE. UNDERLYING PNEUMONIA NOT EXCLUDED. 3. SMALL GROUNDGLASS INFILTRATE POSTERIOR LEFT MIDLUNG COULD REPRESENT AN ADDITIONAL INFECTIOUS/INFLA MMATORY FOCUS. 5 MONTH FOLLOW-UP LOW DOSE CHEST CT CAN REASSESS BOTH OF THESE FINDINGS AND ALSO SERVE ANNUAL LUNG CANCER SCREENING. 4. ANTERIOR WEDGE DEFORMITY OF T7 IS SCLEROTIC SUGGESTING A CHRONIC INJURY THOUGH SLIGHTLY PROGRESSED FROM 09/22/2019. 5. CAD WITH THREE-VESSEL CORONARY ARTERY CALCIFICATIONS. 6. SMALL HIATAL HERNIA AND 4.2 CM SPLENIC CYST REDEMONSTRATED.
[2020-04-11] MEDS: PANTOPRAZOLE 40 MG TABLET PO SCH (17:43)
[2020-04-11 19:26] VITALS: RESP 20
[2020-04-12] MEDS: methylPREDNISolone SOD SUCCI 40 MG/ML 1 ML VIAL IV SCH ×2 (00:59→08:34)
[2020-04-12] MEDS: IPRATROPIUM-ALBUTEROL 3 ML NEB INHALATION SCH ×2 (07:33→10:56)
[2020-04-12] MEDS: SYMBICORT 160-4.5 MCG INHALER INHALATION SCH (07:33)
[2020-04-12 07:55] VITALS: BP 124/71; TEMP 98
[2020-04-12] MEDS: DOXYCYCLINE 100 MG CAP PO SCH (08:34)
[2020-04-12] MEDS ORDERED: AZITHROMYCIN 500 MG TAB PO SCH (09:00)
[2020-04-12] MEDS ORDERED: ENOXAPARIN 40 MG/0.4 ML SYRINGE SQ SCH (09:00)
[2020-04-12 10:59] VITALS: PULSE 85
--- NOTE | 2020-04-12 11:39 | P.DS ---
Providers Date of admission: 04/11/20 11:32 Attending physician: Toro Hernandez MD Consults: 04/10/20 14:22 Consult Physician Routine Consulting Provider: Manju Lemus Consult Reason/Comments: copd exacerbation Do you want consulting provider notified?: Yes Primary care physician: Carolyn Mahmood [facility] Course: 69-year-old pleasant female was admitted secondary to COPD exacerbation can use to have shortness of breath presently on 4 L of onset and which will be tapered down. Patient has musculoskeletal pain on the left side of the chest because of trauma and coughing. 04/12/2020 Patient had a computed tomography scan of the chest which is concerning for right middle lobe pneumonia and patient was started on Rocephin and azithromycin patient is clinically doing well no wheezing at this time patient will be discharged on weaning dose of steroids and Ceftin if cleared by pulmonology. Radiology also recommended a follow-up CT in about 6 months. PHYSICAL EXAMINATION: GENERAL: The patient is alert and oriented x3, not in any acute distress. Well developed, well nourished. HEENT: Pupils are round and equally reacting to light. EOMI. No scleral icterus. No conjunctival pallor. Normocephalic, atraumatic. No pharyngeal erythema. No thyromegaly. CARDIOVASCULAR: S1 and S2 present. No murmurs, rubs, or gallops. PULMONARY: Chest is clear to auscultation, no wheezing or crackles. Mildly diminished air entry. ABDOMEN: Soft, nontender, nondistended, normoactive bowel sounds. No palpable organomegaly. MUSCULOSKELETAL: No joint swelling or deformity. EXTREMITIES: No cyanosis, clubbing, or pedal edema. NEUROLOGICAL: Gross neurological examination did not reveal any focal deficits. SKIN: No rashes. Assessment and Plan Plan: -Acute hypoxic and hypercapnic respiratory failure secondary to COPD exacerbation. Patient will be discharged on weaning dose of steroids -Possible right middle lobe pneumonia. -Left rib pain and tenderness secondary to recent fall and coughing. -Nicotine use: Counseling was provided -Gastroesophageal reflux disease Patient Condition at Discharge: Poor Plan - Discharge Summary New Discharge Prescriptions: New Cefuroxime Axetil [Ceftin] 500 mg PO BID 5 Days #10 tab predniSONE 10 mg PO DAILY #30 tab No Action Mometasone/Formoterol [Dulera 200 Mcg/5 Mcg Inhaler] 2 puff INHALATION RT-BID Omeprazole [PriLOSEC] 20 mg PO AC-SUPPER Albuterol Sulfate [Proair Hfa] 1 - 2 puff INHALATION RT-Q6H PRN PRN Reason: Shortness Of Breath Tiotropium 18 Mcg/Puff [Spiriva] 1 puff INHALATION RT-DAILY Denosumab [Prolia] 60 mg SQ Q180D Discharge Medication List Mometasone/Formoterol [Dulera 200 Mcg/5 Mcg Inhaler] 2 puff INHALATION RT-BID 05/13/14 [History] Omeprazole [PriLOSEC] 20 mg PO AC-SUPPER 04/26/15 [History] Albuterol Sulfate [Proair Hfa] 1 - 2 puff INHALATION RT-Q6H PRN 04/10/20 [History] Denosumab [Prolia] 60 mg SQ Q180D 04/10/20 [History] Tiotropium 18 Mcg/Puff [Spiriva] 1 puff INHALATION RT-DAILY 04/10/20 [History] Cefuroxime Axetil [Ceftin] 500 mg PO BID 5 Days #10 tab 04/12/20 [Rx] predniSONE 10 mg PO DAILY #30 tab 04/12/20 [Rx] Follow up Appointment(s)/Referral(s): Carolyn Mahmood DO [Primary Care Provider] - 3 Days [facility], [NON-STAFF] - 1-2 Days [facility] [NON-STAFF] - As Needed (Supplier of home oxygen) Manju Lemus MD [STAFF PHYSICIAN] - 1 Week Discharge Disposition: HOME SELF-CARE
--- NOTE | 2020-04-12 12:24 | P.PN ---
Subjective Progress Note Date: 04/12/20 Principal diagnosis: Dyspnea, left rib pain 69-year-old white female patient of Dr. Rosenberg, with known history of COPD, current smoker, GERD/reflux, patient had a baseline FEV1 of around 30%, and used to follow with Dr. Lemus in the pulmonary clinic. Patient had a fall on the ice a week or 2 ago and she had fallen on her left side of her ribs. She is still experiencing pain and tenderness over the left lateral rib area. She has been having increasing shortness of breath, cough, and phlegm production. No fever, chills, no body aches, no lower extremity swelling, or pain, no headaches. Patient's maintenance inhalers include Dulera, Spiriva, and Pro-air. Denied any hemoptysis, chest x-ray in the ER showed a moderate to advanced emphysema, interstitial changes with the possibility of mild chronic scarring, or bronchitis. EKG showed normal sinus rhythm with nonspecific ST and T-wave abnormality. Patient tested negative for COVID 19. Admission blood work showed a white blood cell count of 11.3, hemoglobin is 15.2, coordination profile was within normal limits, potassium is 5.4, and depressive electrolytes and renal profile were unremarkable, plasma lactic acid was 1.2. Troponin was less than 0.012, proBNP was within normal limits at 210. Patient has congested cough, lung sounds are diminished, she is very short of breath with exertion, patient is not normally oxygen dependent, however her pulse ox is around 80 to percent on room air, and patient had significant exertional dyspnea. On 04/12/2020 patient seen in follow-up. Doing better, breathing much easier, FiO2 is down to 4 L, pulse ox is 93%, room air pulse ox was 86%, patient does qualify for home oxygen, patient sounds like bronchospastic on today's exam, no significant cough, left rib pain is improved. She's had no fever or chills. CT chest with contrast was completed, showing moderate to advanced emphysema, new volume loss and consolidation in the right middle lobe consistent with pneumonia, and small groundglass infiltrate in the posterior left mid lung that could represent an additional infectious inflammatory focus. Today's labs have been reviewed, showing WBC 6.27, hemoglobin of 14, elected lites within normal limits, B1 is 36, creatinine is 1.1. Clinically stable, tolerating inhalation, she could consider for discharge home today. Objective - Vital Signs Vital signs: Vital Signs Temp 98.0 F 04/12/20 07:00 Pulse 85 04/12/20 11:04 Resp 20 04/12/20 07:56 BP 124/71 04/12/20 07:00 Pulse Ox 86 L 04/12/20 10:38 Intake & Output 04/11/20 04/12/20 04/12/20 18:59 06:59 18:59 Intake Total 942 Balance 942 Intake: Oral 942 Other: Voiding Method Toilet # Voids 2 1 - Exam GENERAL EXAM: Alert, very pleasant, 69-year-old white female, 3 L of oxygen with pulse ox of 94%, on room air pulse ox is 80-82%, patient has significant exertional dyspnea walking in the room, takes a while to recover, she has con versational dyspnea, and she can only speak in short sentences related to dyspnea HEAD: Normocephalic/atraumatic. EYES: Normal reaction of pupils, equal size. Conjunctiva pink, sclera white. NOSE: Clear with pink turbinates. THROAT: No erythema or exudates. NECK: No masses, no JVD, no thyroid enlargement, no adenopathy. CHEST: No chest wall deformity. Symmetrical expansion. Patient has significant left lateral rib tenderness with light palpation LUNGS: Diminished air entry bilateral, no wheezes no crackles CVS: Regular rate and rhythm, normal S1 and S2, no gallops, no murmurs, no rubs ABDOMEN: Soft, nontender. No hepatosplenomegaly, normal bowel sounds, no guarding or rigidity. EXTREMITIES: No clubbing, no edema, no cyanosis, 2+ pulses and upper and lower extremities. MUSCULOSKELETAL: Muscle strength and tone normal. SPINE: No scoliosis or deformity SKIN: No rashes CENTRAL NERVOUS SYSTEM: Alert and oriented -3. No focal deficits, tone is normal in all 4 extremities. PSYCHIATRIC: Alert and oriented -3. Appropriate affect. Intact judgment and insight. - Labs CBC & Chem 7: 04/11/20 04:24 04/11/20 04:24 Labs: Microbiology - Last 24 Hours (Table) 04/10/20 16:12 Blood Culture - Preliminary Blood No Growth after 24 hours Assessment and Plan Plan: Assessment: #1. Acute hypoxic respiratory failure related to right middle lobe pneumonia and acute exacerbation of COPD, COVID 19 negative #2. Left rib pain and tenderness, patient had a fall 2 weeks ago on the ice landing on her left chest #3. Chronic and ongoing history of smoking #4. History of GERD/reflux #5. Advanced COPD, patient's FEV1 was around 30% 2 years ago not oxygen dependent at baseline Plan: Patient was switched over to azithromycin and Rocephin, CT chest findings have been noted, patient does have a right middle lobe pneumonia not appreciated on the chest x-ray, on a background of advanced emphysema. Clinically she is feeling better, does qualify for home oxygen, increase activity as tolerated, patient could be considered for discharge home on oral antibiotics and a prednisone taper, she can resume her inhalers and breathing treatments, she needs to be seen in follow-up with Dr. Lemus in 7-10 days. I performed a history & physical examination of the patient and discussed their management with my nurse practitioner, Betsey Kitchen. I reviewed the nurse pr actitioner's note and agree with the documented findings and plan of care. Lung sounds are positive for diminished breath sounds. The findings and the impression was discussed with the patient. I attest to the documentation by the nurse practitioner. Time with Patient: Less than 30
== END 2020-04-12 14:04 | disposition home health service (06) ==
LOC: EC 11:46 → 6NMEDSUR 14:22 → OBSVTOIN 04-11 11:32 → INTOOBSV 04-11 11:32 → UNDODISIN 04-12 14:04
PROVIDERS: ADMIT Internal Medicine; ATTEND Internal Medicine
DX: J44.1 Chronic obstructive pulmonary disease with (acute) exacerbation (principal); J96.01 Acute respiratory failure with hypoxia; J96.02 Acute respiratory failure with hypercapnia; J44.0 Chronic obstructive pulmonary disease with (acute) lower respiratory infection; Z20.822 Contact with and (suspected) exposure to COVID-19; F17.200 Nicotine dependence, unspecified, uncomplicated; K44.9 Diaphragmatic hernia without obstruction or gangrene; R13.10 Dysphagia, unspecified; K21.9 Gastro-esophageal reflux disease without esophagitis; R07.81 Pleurodynia; W00.0XXA Fall on same level due to ice and snow, initial encounter; Z79.51 Long term (current) use of inhaled steroids; Z79.899 Other long term (current) drug therapy; Z90.710 Acquired absence of both cervix and uterus; Z98.890 Other specified postprocedural states
CPT/HCPCS: 96376 ×2; 96366; 96372; 96375; 96365; 99285; 36415; 94640 ×6; 94760; 93005; 83880; 80053; 80048; 83605; 83735; 84132; 84484; 85025; 85027; 85610; 85730; 87040; 87635; 71046; 71250; G0378 ×3; J2920 ×3; J0696 ×2; J1650

== ENCOUNTER → 2021-04-24 | Outpatient (CLI) | payer MEDICARE ==
--- NOTE | 2021-04-24 20:26 | CTL ---
EXAMINATION TYPE: CT Low Dose Lung DATE OF EXAM ORDERED: 04/24/2021 HISTORY: History of tobacco use. Lung cancer screening CT DLP: 63.[address] CTDI: 1.8 mGy Automated exposure control for dose reduction was used. SCREENING VISIT: Follow-up COMPARISON: CT dated 04/11/2020 and 09/22/2019 TECHNIQUE: Low dose computed tomography scan was performed through the chest at 1 mm thick sections a nd reconstructed images in multiple planes at 1 mm and [address] DIAGNOSTIC QUALITY: Satisfactory FINDINGS: LUNG NODULES: Left lower lobe solid [address] image 160. This nodule is stable. Left lower lobe solid [address] image 112. This nodule is stable. Right upper lobe posterior solid [address] image #6, new. LUNGS: COPD: Severity: Severe centrilobular emphysematous changes mainly in the upper lobes Fibrosis: Severity: Mild Lymph nodes: None Other findings: Stable scarring in the lung apices bilaterally. Bronchial impaction seen in the lower lobes. Cystic changes/honeycombing is seen at the posterior aspect of the left lung base. RIGHT PLEURAL SPACE: Effusion: None Calcification: None Thickening: None Pneumothorax: None LEFT PLEURAL SPACE: Effusion: None Calcification: None Thickening: None Pneumothorax: None HEART: Heart Size: Normal Coronary Calcification: Moderate to marked Pericardial Effusion: None OTHER FINDINGS: Upper abdomen: Interval enlargement of the splenic cyst measuring 5.1 cm compared to 4.2 cm previousl y. Bony thorax: Osteopenia. Persistent compression fracture and anterior wedging of T7 vertebral body Supraclavicular region: None Other: None IMPRESSION: New 7 mm right upper lobe nodule which could represent bronchial impaction however neopla stic nodule cannot be excluded. Extensive COPD changes. CT LUNG RAD AND CT CHEST RECOMMENDATION: Category 4A, suspicious, for follow-up in 3 months by LDCT S Modifier (other clinically significant findings): Enlarging splenic cyst as described above
--- NOTE | 2021-04-25 10:50 | BD ---
EXAMINATION TYPE: Axial Bone Density DATE OF EXAM: 04/24/2021 COMPARISON: NONE CLINICAL HISTORY: Height: 5 FT 4 IN Weight: 146 FRAX RISK QUESTIONS: Alcohol (3 or more units per day): NO Family History (Parent hip fracture): NO Glucocorticoids (More than 3mos): NO (Ex: prednisone, prednisolone, methylprednisolone, dexamethasone, and hydrocortisone). History of Fracture in Adulthood: YES Secondary Osteoporosis: 1. Type 1 Diabetes: NO 2. Hyperthyroidism: NO 3. Menopause before 45: YES 4. Malnutrition: NO 5. Chronic liver disease: NO Rheumatoid Arthritis: NO Current Tobacco Use: YES RISK FACTORS HISTORY OF: Surgery to Spine/Hip(right/left)/Wrist (right/left): NO Family History of Osteoporosis: NO Active: NO Diet low in dairy products/other sources of calcium: NO Postmenopausal woman: YES Take estrogen and/or progesterone medications: TOOK HRT LONG AGO NO LONGER TAKES Lost more than 2 inches in height since high school: NO Frequent falls: NO Poor Health: GOOD Hyperparathyroidism: NO Adrenal Insufficiency: NO MEDICATIONS: Additional Medications: INHALER FOR COPD, Additional History: EXAM MEASUREMENTS: Bone mineral densitometry was performed using the [employer] System. Bone mineral density as measured about the Lumbar spine is: ----- L1-L4(G/cm2): 0.955 T Score Values are as follows: ----- L2: -2.7 ----- L3: -1.9 ----- L4: -1.3 ----- L1-L4: -1.9 Bone mineral density has: DECREASED -2.6 % since study of: 2018 Bone mineral density about the R hip (g/cm2): 0.670 Bone mineral density about the L hip (g/cm2): 0.666 T Score values are as follows: -----R Neck: -2.7 -----L Neck: -2.7 -----R Total: -2.5 -----L Total: -2.4 Bone mineral density has: DECREASED -0.3 % since study of: 2019 IMPRESSION: Osteoporosis NOTE: T-SCORE=SD OF THE YOUNG ADULT MEAN.
--- NOTE | 2021-04-26 12:32 | MM ---
Reason for exam: screening (asymptomatic). Last mammogram was performed 1 year and 7 months ago. History: Patient is postmenopausal. Took estrogen for 10 years. Took progesterone for 10 years. Physical Findings: A clinical breast exam by your physician is recommended on an annual basis and results should be correlated with mammographic findings. MG 3D Screening Mammo W/Cad Bilateral CC and MLO view(s) were taken. Prior study comparison: September 22, 2019, bilateral MG 3d screening mammo w/cad. July 31, 2018, bilateral MG 3d screening mammo w/cad. There are scattered fibroglandular densities. No significant changes when compared with prior studies. ASSESSMENT: Benign, BI-RAD 2 RECOMMENDATION: Routine screening mammogram of both breasts in 1 year.
== END | disposition home or self-care (01) ==
LOC: RADMAMWWP 14:33
PROVIDERS: ATTEND Family Medicine
DX: Z12.31 Encounter for screening mammogram for malignant neoplasm of breast (principal); Z12.2 Encounter for screening for malignant neoplasm of respiratory organs; M81.0 Age-related osteoporosis without current pathological fracture; R91.1 Solitary pulmonary nodule; J44.9 Chronic obstructive pulmonary disease, unspecified; Z78.0 Asymptomatic menopausal state; Z87.891 Personal history of nicotine dependence
CPT/HCPCS: 71271; 77063; 77067; 77080

== ENCOUNTER 2021-07-07 18:01 | Inpatient (IN) | payer MEDICARE ==
[2021-07-07] MEDS ORDERED: SODIUM CHLORIDE 0.9% 1,000 ML IV STA ×2 (18:23→19:07)
[2021-07-07] MEDS ORDERED: IPRATROPIUM-ALBUTEROL 3 ML NEB INHALATION STA (18:23)
[2021-07-07] MEDS ORDERED: MAGNESIUM SULFATE-D5W PMX 2 GM in DEXTROSE/WATER 1 100ML.BAG IVPB STA (18:23)
[2021-07-07] MEDS ORDERED: methylPREDNISolone SOD SUCCI 125 MG/2 ML VIAL IV STA (18:23)
--- NOTE | 2021-07-07 18:32 | ED ---
SOB HPI - General Chief Complaint: Shortness of Breath Stated Complaint: JANICE,COPD Time Seen by Provider: 07/07/21 18:17 Source: patient Mode of arrival: ambulatory Limitations: no limitations - History of Present Illness Initial Comments: 70-year-old female history of COPD who states she's been short of breath for about 2 weeks is here doctor twice at times she was placed on azithromycin as well as other medication she is getting worse not better she denies any chest pain she had a fever a couple days ago she states no chills or sweats she coughs and cannot get phlegm up. She was noted be hypoxemic at triage she is on 3 L of oxygen at home. MD Complaint: shortness of breath - Related Data Home Medications Medication Instructions Recorded Confirmed Mometasone/Formoterol [Dulera 200 2 puff INHALATION RT-BID 05/13/14 07/07/21 Mcg/5 Mcg Inhaler] Denosumab [Prolia] 60 mg SQ Q180D 04/10/20 07/07/21 Tiotropium 18 Mcg/Puff [Spiriva] 1 puff INHALATION RT-DAILY 04/10/20 07/07/21 Albuterol Nebulized [Ventolin 2.5 mg INHALATION RT-QID PRN 07/07/21 07/07/21 Nebulized] Azithromycin [Zithromax Z-pack (6 See Taper PO DAILY 07/07/21 07/07/21 tabs)] predniSONE See Taper PO DAILY 07/07/21 07/07/21 predniSONE [Deltasone] 20 mg PO ONCE 07/07/21 07/07/21 Allergies Allergy/AdvReac Type Severity Reaction Status Date / Time sulfamethoxazole Allergy Unknown Verified 07/07/21 20:29 [From Bactrim] trimethoprim [From Bactrim] Allergy Unknown Verified 07/07/21 20:29 Review of Systems ROS Statement: Those systems with pertinent positive or pertinent negative responses have been documented in the HPI. ROS Other: All systems not noted in ROS Statement are negative. Past Medical History Past Medical History: COPD Additional Past Medical History / Comment(s): STATES ONLY 1 WORKING KIDNEY, HIATAL HERNIA, DIFFICULTY SWALLOWING. History of Any Multi-Drug Resistant Organisms: None Reported Past Surgical History: Hernia Repair, Hysterectomy Additional Past Surgical History / Comment(s): INGUINAL HERNIA. Past Anesthesia/Blood Transfusion Reactions: Postoperative Nausea & Vomiting (PONV) Past Psychological History: No Psychological Hx Reported Smoking Status: Current every day smoker Past Alcohol Use History: Rare Past Drug Use History: None Reported General Exam - General Exam Comments Initial Comments: This is a well-developed thin appearing female who is awake alert oriented 3 Limitations: no limitations General appearance: alert, anxious, in distress Head exam: Present: atraumatic, normocephalic, normal inspection Eye exam: Present: normal appearance, PERRL, EOMI. Absent: scleral icterus, conjunctival injection, periorbital swelling ENT exam: Present: normal exam, mucous membranes moist Neck exam: Present: normal inspection, full ROM, other. Absent: tenderness, meningismus, lymphadenopathy Respiratory exam: Present: wheezes, accessory muscle use, decreased breath sounds (O2 sat are acute or bruits). Absent: respiratory distress, rales, rhonchi, stridor Cardiovascular Exam: Present: regular rate, normal rhythm, normal heart sounds. Absent: systolic murmur, diastolic murmur, rubs, gallop, clicks GI/Abdominal exam: Present: soft, normal bowel sounds. Absent: distended, tend erness, guarding, rebound, rigid Extremities exam: Present: normal inspection, full ROM, normal capillary refill. Absent: tenderness, pedal edema, joint swelling, calf tenderness Back exam: Present: normal inspection Neurological exam: Present: alert, oriented X3, CN II-XII intact Psychiatric exam: Present: normal affect, normal mood Skin exam: Present: warm, dry, intact, normal color. Absent: rash Course Vital Signs 07/07/21 18:08 Temperature 98.2 F Pulse Rate 70 Respiratory 84 H Rate Blood Pressure 154/49 O2 Sat by Pulse 86 L Oximetry - Reevaluation(s) Reevaluation #1: 07/07/21 21:36 The patient did require BiPAP she is much improved after this was started Medical Decision Making - Medical Decision Making I did discuss the findings with the patient family as well as with Dr. ferguson patient will be admitted she does have influenza type A as well as COPD exacerbation and renal insufficiency. - Lab Data Result diagrams: 07/07/21 18:31 07/07/21 18:31 Lab Results 07/07/21 07/07/21 07/07/21 Range/Units 18:31 18:31 18:31 WBC 6.5 (3.8-10.6) k/uL RBC 4.51 (3.80-5.40) m/uL Hgb 13.2 (11.4-16.0) gm/dL Hct 42.9 (34.0-46.0) % MCV 95.2 (80.0-100.0) fL MCH 29.2 (25.0-35.0) pg MCHC 30.7 L (31.0-37.0) g/dL RDW 14.2 (11.5-15.5) % Plt Count 255 (150-450) k/uL MPV 7.3 Neutrophils % (Manual) 67 % Lymphocytes % (Manual) 18 % Monocytes % (Manual) 15 % Neutrophils # (Manual) 4.36 (1.3-7.7) k/uL Lymphocytes # (Manual) 1.17 (1.0-4.8) k/uL Monocytes # (Manual) 0.98 (0-1.0) k/uL Nucleated RBCs 0 (0-0) /100 WBC PT 10.2 (9.0-12.0) sec INR 0.9 (<1.2) APTT 22.1 (22.0-30.0) sec D-Dimer 4.08 H (<0.60) mg/L FEU Sodium 141 (137-145) mmol/L Potassium 4.2 (3.5-5.1) mmol/L Chloride 106 (98-107) mmol/L Carbon Dioxide 31 H (22-30) mmol/L Anion Gap 4 mmol/L BUN 36 H (7-17) mg/dL Creatinine 1.27 H (0.52-1.04) mg/dL Est GFR (CKD-EPI)AfAm 50 (>60 ml/min/1.73 sqM) Est GFR (CKD-EPI)NonAf 43 (>60 ml/min/1.73 sqM) Glucose 136 H (74-99) mg/dL Plasma Lactic Acid Javier (0.7-2.0) mmol/L Calcium 9.0 (8.4-10.2) mg/dL Magnesium 1.9 (1.6-2.3) mg/dL Total Bilirubin 0.4 (0.2-1.3) mg/dL AST 42 H (14-36) U/L ALT 40 H (4-34) U/L Alkaline Phosphatase 58 (38-126) U/L Troponin I (0.000-0.034) ng/mL NT-Pro-B Natriuret Pep pg/mL Total Protein 7.2 (6.3-8.2) g/dL Albumin 4.0 (3.5-5.0) g/dL Coronavirus (PCR) (Not Detectd) Influenza Type A RNA (Not Detectd) Influenza Type B (PCR) (Not Detectd) 07/07/21 07/07/21 07/07/21 Range/Units 18:31 18:31 18:31 WBC (3.8-10.6) k/uL RBC (3.80-5.40) m/uL Hgb (11.4-16.0) gm/dL Hct (34.0-46.0) % MCV (80.0-100.0) fL MCH (25.0-35.0) pg MCHC (31.0-37.0) g/dL RDW (11.5-15.5) % Plt Count (150-450) k/uL MPV Neutrophils % (Manual) % Lymphocytes % (Manual) % Monocytes % (Manual) % Neutrophils # (Manual) (1.3-7.7) k/uL Lymphocytes # (Manual) (1.0-4.8) k/uL Monocytes # (Manual) (0-1.0) k/uL Nucleated RBCs (0-0) /100 WBC PT (9.0-12.0) sec INR (<1.2) APTT (22.0-30.0) sec D-Dimer (<0.60) mg/L FEU Sodium (137-145) mmol/L Potassium (3.5-5.1) mmol/L Chloride (98-107) mmol/L Carbon Dioxide (22-30) mmol/L Anion Gap mmol/L BUN (7-17) mg/dL Creatinine (0.52-1.04) mg/dL Est GFR (CKD-EPI)AfAm (>60 ml/min/1.73 sqM) Est GFR (CKD-EPI)NonAf (>60 ml/min/1.73 sqM) Glucose (74-99) mg/dL Plasma Lactic Acid Javier 0.9 (0.7-2.0) mmol/L Calcium (8.4-10.2) mg/dL Magnesium (1.6-2.3) mg/dL Total Bilirubin (0.2-1.3) mg/dL AST (14-36) U/L ALT (4-34) U/L Alkaline Phosphatase (38-126) U/L Troponin I <0.012 (0.000-0.034) ng/mL NT-Pro-B Natriuret Pep 717 pg/mL Total Protein (6.3-8.2) g/dL Albumin (3.5-5.0) g/dL Coronavirus (PCR) (Not Detectd) Influenza Type A RNA (Not Detectd) Influenza Type B (PCR) (Not Detectd) 07/07/21 07/07/21 Range/Units 18:47 18:47 WBC (3.8-10.6) k/uL RBC (3.80-5.40) m/uL Hgb (11.4-16.0) gm/dL Hct (34.0-46.0) % MCV (80.0-100.0) fL MCH (25.0-35.0) pg MCHC (31.0-37.0) g/dL RDW (11.5-15.5) % Plt Count (150-450) k/uL MPV Neutrophils % (Manual) % Lymphocytes % (Manual) % Monocytes % (Manual) % Neutrophils # (Manual) (1.3-7.7) k/uL Lymphocytes # (Manual) (1.0-4.8) k/uL Monocytes # (Manual) (0-1.0) k/uL Nucleated RBCs (0-0) /100 WBC PT (9.0-12.0) sec INR (<1.2) APTT (22.0-30.0) sec D-Dimer (<0.60) mg/L FEU Sodium (137-145) mmol/L Potassium (3.5-5.1) mmol/L Chloride (98-107) mmol/L Carbon Dioxide (22-30) mmol/L Anion Gap mmol/L BUN (7-17) mg/dL Creatinine (0.52-1.04) mg/dL Est GFR (CKD-EPI)AfAm (>60 ml/min/1.73 sqM) Est GFR (CKD-EPI)NonAf (>60 ml/min/1.73 sqM) Glucose (74-99) mg/dL Plasma Lactic Acid Javier (0.7-2.0) mmol/L Calcium (8.4-10.2) mg/dL Magnesium (1.6-2.3) mg/dL Total Bilirubin (0.2-1.3) mg/dL AST (14-36) U/L ALT (4-34) U/L Alkaline Phosphatase (38-126) U/L Troponin I (0.000-0.034) ng/mL NT-Pro-B Natriuret Pep pg/mL Total Protein (6.3-8.2) g/dL Albumin (3.5-5.0) g/dL Coronavirus (PCR) Not Detected (Not Detectd) Influenza Type A RNA Detected H (Not Detectd) Influenza Type B (PCR) Not Detected (Not Detectd) - EKG Data -: EKG Interpreted by Tx EKG shows normal: sinus rhythm EKG Comments: Sinus rate of 88 DE interval 96 QRS duration 108 QT since QTC 372/[address] configuration artifact present. - Radiology Data Radiology results: report reviewed, image reviewed (Imaging reviewed infiltrate negative PE) Critical Care Time Critical Care Time: Yes Total Critical Care Time: 39 Critical Care Time: Critical care time includes initial presentation with history physical labs x- rays multiple reevaluation patient responsive therapy discuss with the patient family regarding findings discussion with the admitting physician admission orders and documentation of the above Disposition Clinical Impression: Acute exacerbation of chronic obstructive pulmonary disease, Acute respiratory distress syndrome in adult, Influenza due to influenza virus, type A, human, Renal insufficiency Disposition: ADMITTED IP TO THIS HOSP Condition: Fair Referrals: Carolyn Mahmood DO [Primary Care Provider] - 1-2 days Decision Date: 07/07/21 Decision Time: 21:00
[2021-07-07 18:44] LABS: HCT 42.9 % (34.0-46.0); HGB 13.2 gm/dL (11.4-16.0); MCH 29.2 pg (25.0-35.0); MCHC 30.7 g/dL (31.0-37.0); MCV 95.2 fL (80.0-100.0); Mean Platelet Volume 7.3; Platelet Count 255 k/uL (150-450); RBC 4.51 m/uL (3.80-5.40); RDW 14.2 % (11.5-15.5); WBC 6.5 k/uL (3.8-10.6)
[2021-07-07 18:49] LABS: Magnesium 1.9 mg/dL (1.6-2.3); Potassium 4.2 mmol/L (3.5-5.1); Total Bilirubin 0.4 mg/dL (0.2-1.3); Total Protein 7.2 g/dL (6.3-8.2)
[2021-07-07 18:51] LABS: INR 0.9 (<1.2); Partial Thromboplastin Time 22.1 sec (22.0-30.0); Prothrombin Time 10.2 sec (9.0-12.0)
[2021-07-07 19:45] LABS: Lymphocytes # (M) 1.17 k/uL (1.0-4.8); Monocytes # (M) 0.98 k/uL (0-1.0); Neutrophils # (M) 4.36 k/uL (1.3-7.7); Neutrophils % (M) 67 %; Nucleated Red Blood Cells 0 /100 WBC (0-0); Total Cells Counted 100
--- NOTE | 2021-07-07 19:50 | XR ---
EXAMINATION TYPE: XR chest 2V DATE OF EXAM: 07/07/2021 COMPARISON: 04/10/2020 HISTORY: Short of breath TECHNIQUE: FINDINGS: There is coarse interstitial density in both lungs. Heart size is normal. There are emphyse matous changes in both lungs. There is mild flattening of the diaphragm. There is 50% anterior wedgin g of mid thoracic vertebra. There is slight thoracic kyphosis. IMPRESSION: COPD and pulmonary fibrosis. No obvious heart failure. Stable thoracic compression fractu re. Interstitial lung disease slightly increased compared to old exam.
--- NOTE | 2021-07-07 20:13 | CT ---
EXAMINATION TYPE: CT angio chest DATE OF EXAM: 07/07/2021 COMPARISON: 04/11/2020 HISTORY: elevated d-dimer, SOB CT DLP: 273.9 mGycm Automated exposure control for dose reduction was used. CONTRAST: Performed with IV Contrast, patient injected with 50cc mL of Isovue 370. There are 3-D postprocess images. There is diffuse pulmonary emphysema. There are some coarse interstitial mild density in the lower stephany ng borges. Heart size is normal. No pericardial effusion. No pleural effusion or pneumothorax. There is small hiatal hernia. There are no hilar masses. No mediastinal adenopathy. Thoracic aorta is intact. No aneurysm or dissec tion. There is normal contrast opacification of the pulmonary arteries. No filling defect. There is old T7 compression fracture. The upper abdominal soft tissues appear intact. 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 IMPRESSION: No evidence of pulmonary embolism. Pulmonary emphysema and pulmonary fibrosis without much change compared to old exam.
[2021-07-07] MEDS ORDERED: OSELTAMIVIR 75 MG CAP PO STA (21:35)
[2021-07-07] MEDS ORDERED: IPRATROPIUM-ALBUTEROL 3 ML NEB INHALATION PRN (21:45)
[2021-07-07] MEDS ORDERED: DENOSUMAB 60 MG/ML 1 ML SYRINGE SQ SCH (22:00)
[2021-07-07] MEDS: SODIUM CHLORIDE 0.9% 1,000 ML IV SCH (23:55)
[2021-07-08] MEDS: methylPREDNISolone SOD SUCCI 125 MG/2 ML VIAL IV SCH ×4 (00:43→17:30)
[2021-07-08 06:57] LABS: Glucose,Whole Blood 151 mg/dL (75-99)
[2021-07-08] MEDS ORDERED: SYMBICORT 160-4.5 MCG INHALER INHALATION SCH (08:00)
[2021-07-08] MEDS: IPRATROPIUM 0.5 MG/2.5 ML NEBU INHALATION SCH ×4 (08:30→19:56)
[2021-07-08] MEDS ORDERED: OSELTAMIVIR 75 MG CAP PO SCH (09:00)
--- NOTE | 2021-07-08 11:47 | P.CNPUL ---
History of Present Illness Consult date: 07/08/21 Requesting physician: Toro Hernandez Reason for consult: dyspnea, cough, COPD, hypoxemia, abnormal CXR/CT Chief complaint: Shortness of breath. History of present illness: Pulmonary consult dated 07/08/2021. 70-year-old female seen initially in the emergency room, on July 07. She came with complaints of shortness of breath. She has a well-established history of COPD. She apparently is been short of breath for about 2 weeks, and it has been getting worse. She sees her nurse practitioner in the office. She was given number of medications, which really have not helped. Currently, she is on BiPAP with settings of 12/6 and 50%. She does cough. She feels like she has chest congestion with phlegm, but has not been able to cough any phlegm up. There is no fever or chills. No chest pain or chest discomfort. The patient would like the BiPAP to be taken out of so that she can eat. Her medical problem list includes primarily COPD, hiatal hernia, only one working kidney, difficulty in swallowing, and osteoporosis. Surgical history includes hysterectomy, and hernia repair. She apparently still does smoke. White count 6.5, hemoglobin 13.2, hematocrit 42.9, and platelet count 255,000. D-dimer is 4.08. Sodium 141, potassium 4.2, chlorides 106, CO2 31, BUN 36, and creatinine 1.27. Chest x-ray shows changes of COPD, and some chronic interstitial disease is wall. CT angiogram was negative for PE, showed changes of COPD, and some interstitial changes as well. Review of Systems REVIEW OF SYSTEMS: CONSTITUTIONAL: [Negative.] NEUROLOGIC: [ Negative.] HEENT: [ Negative.] CARDIAC: [Negative.] PULMONARY: Shortness of breath, cough, minimal phlegm production, chest congestion and wheezing. GI: [Negative.] : [Negative.] RHEUMATOLOGIC: [ Negative.] IMMUNOLOGIC: [ Negative.] ENDOCRINE: [Negative. ] DERMATOLOGIC: [Negative.] Past Medical History Past Medical History: COPD Additional Past Medical History / Comment(s): STATES ONLY 1 WORKING KIDNEY, HIATAL HERNIA, DIFFICULTY SWALLOWING. History of Any Multi-Drug Resistant Organisms: None Reported Past Surgical History: Hernia Repair, Hysterectomy Additional Past Surgical History / Comment(s): INGUINAL HERNIA. Past Anesthesia/Blood Transfusion Reactions: Postoperative Nausea & Vomiting (PONV) Past Psychological History: No Psychological Hx Reported Smoking Status: Current some day smoker Past Alcohol Use History: Rare Past Drug Use History: None Reported Medications and Allergies Home Medications Medication Instructions Recorded Confirmed Type Mometasone/Formoterol [Dulera 200 2 puff INHALATION RT-BID 05/13/14 07/07/21 History Mcg/5 Mcg Inhaler] Denosumab [Prolia] 60 mg SQ Q180D 04/10/20 07/07/21 History Tiotropium 18 Mcg/Puff [Spiriva] 1 puff INHALATION RT-DAILY 04/10/20 07/07/21 History Albuterol Nebulized [Ventolin 2.5 mg INHALATION RT-QID PRN 07/07/21 07/07/21 History Nebulized] Azithromycin [Zithromax Z-pack (6 See Taper PO DAILY 07/07/21 07/07/21 History tabs)] predniSONE See Taper PO DAILY 07/07/21 07/07/21 History predniSONE [Deltasone] 20 mg PO ONCE 07/07/21 07/07/21 History Allergies Allergy/AdvReac Type Severity Reaction Status Date / Time sulfamethoxazole Allergy Unknown Verified 07/07/21 20:29 [From Bactrim] trimethoprim [From Bactrim] Allergy Unknown Verified 07/07/21 20:29 Physical Exam Osteopathic Statement: *. No significant issues noted on an osteopathic structural exam other than those noted in the History and Physical/Consult. Vitals: Vital Signs Temp Pulse Pulse Resp BP BP Pulse Ox 07/08/21 08:44 66 07/08/21 08:34 64 07/08/21 08:00 98.0 F 64 30 H 143/71 100 07/08/21 04:35 99 07/08/21 04:30 97.7 F 61 30 H 134/72 99 07/08/21 00:50 100 07/08/21 00:35 98.7 F 77 27 H 127/75 99 07/07/21 23:30 99.0 F 78 24 144/71 99 07/07/21 22:30 79 24 137/73 100 07/07/21 21:30 85 28 H 131/57 100 07/07/21 20:30 89 42 H 123/75 98 07/07/21 19:30 94 40 H 147/80 97 07/07/21 18:08 98.2 F 70 84 H 154/49 86 L Intake and Output 07/07/21 07/08/21 07/08/21 22:59 06:59 14:59 Output Total 400 Balance -400 Output: Urine 400 Straight 200 Other: Voiding Method External Catheter External Catheter Weight 65.771 kg 65.771 kg Oriented 3, BiPAP mask in place, with mild conversational dyspnea. HEENT examination is grossly unremarkable. Neck supple. Full range of motion. No adenopathy thyromegaly or neck vein distention. Cardiovascular examination reveals regular rhythm rate. S1-S2 normal. No S3 or S4. No discernible murmur noted. Heart sounds are distant. Heart rate 66 bpm. Lungs reveal diffuse bilateral inspiratory and expiratory wheezes and diffuse inspiratory and expiratory rhonchi. No crackles. Breath sounds equal bilaterally. Saturations are 100%. Abdomen soft bowel sounds are heard. No masses or tenderness. Extremities are intact. No cyanosis clubbing or edema. Skin is without rash or lesion. Neurologic examination is brief but nonfocal. Results - Laboratory Findings CBC and BMP: 07/07/21 18:31 07/07/21 18:31 PT/INR, D-dimer PT 10.2 sec (9.0-12.0) 07/07/21 18:31 INR 0.9 (<1.2) 07/07/21 18:31 D-Dimer 4.08 mg/L FEU (<0.60) H 07/07/21 18:31 Abnormal lab findings: Abnormal Labs 07/07/21 07/07/21 07/07/21 18:31 18:31 18:31 MCHC 30.7 L D-Dimer 4.08 H Carbon Dioxide 31 H BUN 36 H Creatinine 1.27 H Glucose 136 H POC Glucose (mg/dL) AST 42 H ALT 40 H Influenza Type A RNA 07/07/21 07/08/21 18:47 06:54 MCHC D-Dimer Carbon Dioxide BUN Creatinine Glucose POC Glucose (mg/dL) 151 H AST ALT Influenza Type A RNA Detected H - Diagnostic Findings Chest x-ray: image reviewed CT scan - chest: image reviewed Assessment and Plan Assessment: Acute exacerbation of COPD, without lawrence pneumonia. History of osteoporosis. History of vertebral compression fracture. History of dysphagia. History of hiatal hernia. Ongoing tobacco use with nicotine addiction. Plan: Plan dated 07/08/2021. The patient is currently on Tamiflu. She apparently tested positive for influenza A. In addition, the patient's getting duo nebs, 4 times a day and when necessary, as well as Pulmicort 1 mg, and formoterol, 20 g, twice a day. The patient's also getting Solu-Medrol 60 mg every 6 hours. No additional recommendations are made. We will continue to follow make recommendations where appropriate. Prognosis is guarded. I've asked the nurse to take the patient off BiPAP, so she can have something to eat. Time with Patient: Greater than 30
[2021-07-08 12:11] LABS: Glucose,Whole Blood 286 mg/dL (75-99)
[2021-07-08] MEDS: INSULIN ASPART (NovoLOG) 100 UNIT/ML VIAL SQ SCH ×3 (12:32→21:29)
[2021-07-08 16:45] LABS: Glucose,Whole Blood 97 mg/dL (75-99)
--- NOTE | 2021-07-08 17:23 | P.HPIM ---
History of Present Illness H&P Date: 07/08/21 Chief Complaint: Shortness of Breath 70-year-old female history of COPD who states she's been short of breath for about 2 weeks is here doctor twice at times she was placed on azithromycin as well as other medication she is getting worse not better she denies any chest pain she had a fever a couple days ago she states no chills or sweats she coughs and cannot get phlegm up. She was noted be hypoxemic at triage she is on 3 L of oxygen at home. White count 6.5, hemoglobin 13.2, hematocrit 42.9, and platelet count 255,000. D-dimer is 4.08. Sodium 141, potassium 4.2, chlorides 106, CO2 31, BUN 36, and creatinine 1.27. Chest x-ray shows changes of COPD, and some chronic interstitial disease is wall. CT angiogram was negative for PE, showed changes of COPD, and some interstitial changes as well. Patient tested positive for influenza A Review of Systems REVIEW OF SYSTEMS: CONSTITUTIONAL: No fever, no malaise, no fatigue. HEENT: No recent visual problems or hearing problems. Denied any sore throat. CARDIOVASCULAR: No chest pain, orthopnea, PND, no palpitations, no syncope. PULMONARY: No shortness of breath, no cough, no hemoptysis. GASTROINTESTINAL: No diarrhea, no nausea, no vomiting, no abdominal pain. NEUROLOGICAL: No headaches, no weakness, no numbness. HEMATOLOGICAL: Denies any bleeding or petechiae. GENITOURINARY: Denies any burning micturition, frequency, or urgency. MUSCULOSKELETAL/RHEUMATOLOGICAL: Denies any joint pain, swelling, or any muscle pain. ENDOCRINE: Denies any polyuria or polydipsia. The rest of the 14-point review of systems is negative. Past Medical History Past Medical History: COPD Additional Past Medical History / Comment(s): STATES ONLY 1 WORKING KIDNEY, HIATAL HERNIA, DIFFICULTY SWALLOWING. History of Any Multi-Drug Resistant Organisms: None Reported Past Surgical History: Hernia Repair, Hysterectomy Additional Past Surgical History / Comment(s): INGUINAL HERNIA. Past Anesthesia/Blood Transfusion Reactions: Postoperative Nausea & Vomiting (PONV) Past Psychological History: No Psychological Hx Reported Smoking Status: Current some day smoker Past Alcohol Use History: Rare Past Drug Use History: None Reported Medications and Allergies Home Medications Medication Instructions Recorded Confirmed Type Mometasone/Formoterol [Dulera 200 2 puff INHALATION RT-BID 05/13/14 07/07/21 History Mcg/5 Mcg Inhaler] Denosumab [Prolia] 60 mg SQ Q180D 04/10/20 07/07/21 History Tiotropium 18 Mcg/Puff [Spiriva] 1 puff INHALATION RT-DAILY 04/10/20 07/07/21 History Albuterol Nebulized [Ventolin 2.5 mg INHALATION RT-QID PRN 07/07/21 07/07/21 History Nebulized] Azithromycin [Zithromax Z-pack (6 See Taper PO DAILY 07/07/21 07/07/21 History tabs)] predniSONE See Taper PO DAILY 07/07/21 07/07/21 History predniSONE [Deltasone] 20 mg PO ONCE 07/07/21 07/07/21 History Allergies Allergy/AdvReac Type Severity Reaction Status Date / Time sulfamethoxazole Allergy Unknown Verified 07/07/21 20:29 [From Bactrim] trimethoprim [From Bactrim] Allergy Unknown Verified 07/07/21 20:29 Physical Exam Vitals: Vital Signs Temp Pulse Pulse Resp BP BP Pulse Ox 07/08/21 14:00 80 26 H 07/08/21 12:45 76 07/08/21 12:32 74 07/08/21 12:00 97.9 F 80 26 H 130/60 94 L 07/08/21 08:44 66 07/08/21 08:34 64 07/08/21 08:00 98.0 F 64 30 H 143/71 100 07/08/21 04:35 99 07/08/21 04:30 97.7 F 61 30 H 134/72 99 07/08/21 00:50 100 07/08/21 00:35 98.7 F 77 27 H 127/75 99 07/07/21 23:30 99.0 F 78 24 144/71 99 07/07/21 22:30 79 24 137/73 100 07/07/21 21:30 85 28 H 131/57 100 07/07/21 20:30 89 42 H 123/75 98 07/07/21 19:30 94 40 H 147/80 97 07/07/21 18:08 98.2 F 70 84 H 154/49 86 L Intake and Output 07/08/21 07/08/21 07/08/21 06:59 14:59 22:59 Output Total 400 Balance -400 Output: Urine 400 Straight 200 Other: Voiding Method External Catheter External Catheter Weight 65.771 kg - Constitutional General appearance: Present: average body habitus, cooperative, no acute distress - EENT Eyes: Present: anicteric sclerae, EOMI, PERRLA, normal appearance ENT: Present: hearing grossly normal, normal oropharynx Ears: bilateral: normal - Neck Neck: Present: normal ROM. Absent: lymphadenopathy, rigidity, thyromegaly Carotids: negative: bruit present Thyroid: bilateral: normal size, negative: enlarged, nodule - Respiratory Respiratory: bilateral: CTA, negative: rales, rhonchi, wheezing - Cardiovascular Rhythm: regular Heart sounds: normal: S1, S2 Abnormal Heart Sounds: Absent: systolic murmur, diastolic murmur - Gastrointestinal General gastrointestinal: Present: normal bowel sounds, soft. Absent: distended, organomegaly, tenderness - Genitourinary Genitourinary Comment(s): deferred - Integumentary Integumentary: Present: normal turgor. Absent: jaundiced, rash, ulcer - Neurologic Neurologic: Present: CNII-XII intact. Absent: focal deficits - Musculoskeletal Musculoskeletal: Present: gait normal, strength equal bilaterally - Psychiatric Psychiatric: Present: A&O x's 3, appropriate affect, intact judgment & insight Results CBC & Chem 7: 07/07/21 18:31 07/07/21 18:31 Labs: Abnormal Lab Results - Last 24 Hours (Table) 07/07/21 07/07/21 07/07/21 Range/Units 18:31 18:31 18:31 MCHC 30.7 L (31.0-37.0) g/dL D-Dimer 4.08 H (<0.60) mg/L FEU Carbon Dioxide 31 H (22-30) mmol/L BUN 36 H (7-17) mg/dL Creatinine 1.27 H (0.52-1.04) mg/dL Glucose 136 H (74-99) mg/dL POC Glucose (mg/dL) (75-99) mg/dL AST 42 H (14-36) U/L ALT 40 H (4-34) U/L Influenza Type A RNA (Not Detectd) 0507/08/21 07/08/21 Range/Units 18:47 06:54 12:07 MCHC (31.0-37.0) g/dL D-Dimer (<0.60) mg/L FEU Carbon Dioxide (22-30) mmol/L BUN (7-17) mg/dL Creatinine (0.52-1.04) mg/dL Glucose (74-99) mg/dL POC Glucose (mg/dL) 151 H 286 H (75-99) mg/dL AST (14-36) U/L ALT (4-34) U/L Influenza Type A RNA Detected H (Not Detectd) Thrombosis Risk Factor Assmnt - Choose All That Apply Any of the Below Risk Factors Present?: Yes Each Factor Represents 1 point: Abnormal pulmonary function (COPD) Each Risk Factor Represents 2 Points: Age 61-74 years Thrombosis Risk Factor Assessment Total Risk Factor Score: 3 Thrombosis Risk Factor Assessment Level: Moderate Risk Assessment and Plan Assessment: 1. Acute exacerbation of COPD; duo nebs, 4 times a day and when necessary, as well as Pulmicort 1 mg, and formoterol, 20 g, twice a day. The patient's also getting Solu-Medrol 60 mg every 6 hours. 2. Influenza A infection; patient has been placed on Tamiflu; continue with symptomatic treatment 3. History of vertebral compression fracture/osteoporosis; patient takes Prolia at home; continue post dc 4. History of dysphagia; we will consult speech therapy. 5. History of hiatal hernia; protonix 40 mg daily. 6. Ongoing tobacco use with nicotine addiction; counseling done. DVT prophylaxis; SCDs CODE STATUS; full code
[2021-07-08] MEDS: PANTOPRAZOLE 40 MG TABLET PO SCH (17:30)
[2021-07-08] MEDS: SODIUM CHLORIDE 0.9% 1,000 ML IV SCH ×2 (17:59→20:06)
[2021-07-08 20:21] LABS: Glucose,Whole Blood 145 mg/dL (75-99)
[2021-07-08] MEDS: FORMOTEROL FUMARATE 20 MCG/2 ML NEBU INHALATION SCH (20:59)
[2021-07-08] MEDS: IPRATROPIUM-ALBUTEROL 3 ML NEB INHALATION SCH (20:59)
[2021-07-08] MEDS: BUDESONIDE 1 MG/2 ML NEBU INHALATION SCH (20:59)
[2021-07-08] MEDS: OSELTAMIVIR 60 MG/10 ML ORAL SYRINGE PO SCH (21:29)
[2021-07-08] MEDS ORDERED: FUROSEMIDE 10 MG/ML 2 ML VIAL IV ONE (21:53)
[2021-07-08 22:13] LABS: ABG Base Excess 4.1 mmol/L; ABG HCO3 31 mmol/L (21-25); ABG PCO2 65 mmHg (35-45); ABG PH 7.29 (7.35-7.45); ABG PO2 198 mmHg (83-108); ABG TCO2 33 mmol/L (19-24); Allen Test Performed? Yes
--- NOTE | 2021-07-08 22:20 | XR ---
EXAMINATION TYPE: XR chest 1V portable DATE OF EXAM: 07/08/2021 COMPARISON: 07/07/2021 HISTORY: Short of breath TECHNIQUE: FINDINGS: There is coarse interstitial density in the lung borges. There are chest leads. Heart size is normal. There is mild flattening of the diaphragm. There is slight blunting of the right costophre maddison angle. IMPRESSION: COPD and pulmonary fibrosis. There is some pulmonary interstitial edema. Atypical heart f ailure is possible. Small right pleural effusion. Overall not a significant change compared to yester day.
[2021-07-08 22:46] LABS: Calcium 8.4 mg/dL (8.4-10.2); Potassium 5.1 mmol/L (3.5-5.1)
[2021-07-09] MEDS: methylPREDNISolone SOD SUCCI 125 MG/2 ML VIAL IV SCH ×5 (00:09→23:38)
[2021-07-09] MEDS: MORPHINE SULFATE 2 MG/ML SYRINGE IVP PRN (00:28)
[2021-07-09 05:28] LABS: Glucose,Whole Blood 162 mg/dL (75-99)
[2021-07-09] MEDS: PANTOPRAZOLE 40 MG TABLET PO SCH (06:18)
[2021-07-09] MEDS: INSULIN ASPART (NovoLOG) 100 UNIT/ML VIAL SQ SCH ×4 (06:19→20:47)
[2021-07-09] MEDS: FORMOTEROL FUMARATE 20 MCG/2 ML NEBU INHALATION SCH ×2 (07:29→21:19)
[2021-07-09] MEDS: BUDESONIDE 1 MG/2 ML NEBU INHALATION SCH ×2 (07:29→21:18)
[2021-07-09] MEDS: IPRATROPIUM-ALBUTEROL 3 ML NEB INHALATION SCH ×4 (07:29→21:18)
[2021-07-09 07:39] LABS: Basophils % (A) 0 %; Eosinophils % (A) 0 %; HCT 38.9 % (34.0-46.0); HGB 11.9 gm/dL (11.4-16.0); Hypochromasia Slight; Lymphocytes # (A) 0.9 k/uL (1.0-4.8); Lymphocytes % (A) 17 %; MCHC 30.6 g/dL (31.0-37.0); MCV 98.3 fL (80.0-100.0); Mean Platelet Volume 7.4; Monocytes # (A) 0.1 k/uL (0-1.0); Monocytes % (A) 2 %; Neutrophils # (A) 4.3 k/uL (1.3-7.7); Neutrophils % (A) 80 %; Platelet Count 233 k/uL (150-450); RBC 3.95 m/uL (3.80-5.40); RDW 14.9 % (11.5-15.5); WBC 5.4 k/uL (3.8-10.6)
[2021-07-09 08:02] LABS: Calcium 8.5 mg/dL (8.4-10.2); Potassium 4.9 mmol/L (3.5-5.1)
[2021-07-09] MEDS: OSELTAMIVIR 60 MG/10 ML ORAL SYRINGE PO SCH ×2 (09:02→20:48)
[2021-07-09 11:35] LABS: Glucose,Whole Blood 166 mg/dL (75-99)
--- NOTE | 2021-07-09 14:00 | CDI ---
Documentation Clarification Form Date: 07/09/2021 01:37:31 PM From: Suze Saha RN CCDS Admit Date: 07/07/2021 09:51:00 PM Patient Name: Delmy Anderson Visit Number: [id number] Discharge Date: ATTENTION: The Clinical Documentation Specialists (CDI) and [facility] Coding Staff appreciate your assistance in clarifying documentation. Please respond to the clarification below the line at the bottom and electronically sign. The CDI & [facility] Coding staff will review the response and follow-up if needed. Please note: Queries are made part of the Legal Health Record. If you have any questions, please contact the author of this message via ITS. Dr. Indy Modi MD Your patient is being treated with Oxygen from 07/07 07/10 . Based on this information and the findings below, is there an additional diagnosis that is clinically appropriate for this patient? History/Risk Factors: 70-year-old female presents to the ED with shortness of breath for two weeks. Medical History: COPD and dysphagia. 07/08, H&P Tobacco use: Ongoing tobacco use with nicotine addiction. 07/08, H&P. Home oxygen: She is on 3L of oxygen at home. 07/08, H&P. Clinical Indicators: Vital signs: 07/07 18:08 B/P 154/49; HR 70; Temp 98.2 F Oral; RR 84; SpO2 86% 3L nasal cannula: 07/07 19:30 B/P 147/89; HR 94; RR 40; SpO2 97% Non-Rebreather: 07/07 21:30 B/P 131/57; HR 85; RR 28; SpO2 100% BiPAP. Lung/Breathing assessment: Pulmonology consult 07/08; Lung reveal diffuse bilateral inspiratory and expiratory wheezes and diffuse inspiratory and expiratory rhonchi. No crackles. Breath sounds equal bilaterally. Treatment: Breathing Tx: 07/07 to current Albuterol/Ipratropium DuoNeb 0.5mg-3mg/3ml Soln Inhalation Q4H PRN; 07/08 to current Albuterol/Ipratropium DuoNeb 0.5mg-3mg/3ml Soln Inhalation Q4H PRN; 07/08- current Pulmicort 1mg Inhalation BID VIDA; 07/08 to current Preformist 20mcg Inhalation BID VIDA. 07/07 Solumedrol 125mg IV x 1; 07/08 to current Solu-Medrol 60mg IV Q6HR; 07/08 Nine doses ordered Tamiflu 30mg PO Q 6HR; 07/07 Mag Sulfate 2gm IVPB x 1. O2: Nasal cannula; Non-rebreather; BiPAP Is there an additional diagnosis that is clinically appropriate for this patient? [ ] Acute Hypoxic Respiratory Failure (pO2 <60 mm Hg or SpO2 <91% on room air) [ ] Acute on Chronic Hypoxic Respiratory Failure. [ ] Other Diagnosis, please specify [ ] Unable to determine Answered on Internal Medicine progress note 07/09: Acute on chronic hypoxic respiratory failure secondary to above and also a component of influenza A , patient chronically wears 3.5 L outpatient. Diamond Yeboah NP. (Template Last Revised: April 2020) ARIANA
--- NOTE | 2021-07-09 14:27 | P.PN ---
Subjective Progress Note Date: 07/09/21 70-year-old female history of COPD who states she's been short of breath for about 2 weeks is here doctor twice at times she was placed on azithromycin as well as other medication she is getting worse not better she denies any chest pain she had a fever a couple days ago she states no chills or sweats she coughs and cannot get phlegm up. She was noted be hypoxemic at triage she is on 3 L of oxygen at home. White count 6.5, hemoglobin 13.2, hematocrit 42.9, and platelet count 255,000. D-dimer is 4.08. Sodium 141, potassium 4.2, chlorides 106, CO2 31, BUN 36, and creatinine 1.27. Chest x-ray shows changes of COPD, and some chronic interstitial disease is wall. CT angiogram was negative for PE, showed changes of COPD, and some interstitial changes as well. Patient tested positive for influenza A 07/09/2021 Patient is seen in follow-up today being closely monitored for COPD exacerbation also found to have influenza A and has been started on Tamiflu and is continued on DuoNeb breathing treatments along with IV steroids to new. Pulmonary following and patient is maintained on 4 L of oxygen via nasal cannula. Patient chronically wears 3-1/2 L and continues to be bronchospastic with wheezing noted and extremely short of breath with minimal exertion and conversation. Chest x- ray yesterday shows COPD and pulmonary fibrosis with some pulmonary interstitial edema and right-sided pleural effusion although not significantly changed from previous the day before. Kidney functions mildly improving with a creatinine of 1.16 and potassium is 4.9 today. Hemoglobin A1c was found to be 6.6 and patient is maintained on sliding scale and will continue. No documented history of diabetes mellitus and will have her follow-up with primary care provider in the outpatient setting and continue with sliding scale and close monitoring for now. Patient is off BiPAP support. Review of systems: Constitutional: No reports of fatigue, fever, or chills Cardiovascular: No reports of chest pain or palpitations Respiratory: reports of shortness of breath and cough GI: No reports of nausea, vomiting, or diarrhea : No reports of dysuria or retention Neurovascular: reports of generalized weakness All medications have been reviewed Active Medications Albuterol/Ipratropium (Ipratropium-Albuterol 3 Ml Neb) 3 ml INHALATION RT-Q4H PRN PRN Reason: Shortness Of Breath Or Wheezing Last Admin: 07/08/21 16:09 Dose: 3 ml Documented by: Albuterol/Ipratropium (Ipratropium-Albuterol 3 Ml Neb) 3 ml INHALATION RT-QID [facility] Last Admin: 07/09/21 07:29 Dose: 3 ml Documented by: Budesonide (Budesonide 1 Mg/2 Ml Nebu) 1 mg INHALATION RT-BID [facility] Last Admin: 07/09/21 07:29 Dose: 1 mg Documented by: Formoterol Fumarate (Formoterol Fumarate 20 Mcg/2 Ml Nebu) 20 mcg INHALATION RT-BID [facility] Last Admin: 07/09/21 07:29 Dose: 20 mcg Documented by: Insulin Aspart (Insulin Aspart (Novolog) 100 Unit/Ml Vial) 0 unit SQ [facility]; Protocol Last Admin: 07/09/21 06:19 Dose: 3 unit Documented by: Methylprednisolone Sodium Succinate (Methylprednisolone Sod Succi 125 Mg/2 Ml Vial) 60 mg IV Q6HR [facility] Last Admin: 07/09/21 06:18 Dose: 60 mg Documented by: Morphine Sulfate (Morphine Sulfate 2 Mg/Ml Syringe) 2 mg IVP Q6HR PRN PRN Reason: Pain/Discomfort Last Admin: 07/09/21 00:28 Dose: 2 mg Documented by: Oseltamivir Phosphate (Oseltamivir 60 Mg/10 Ml Oral Syringe) 30 mg PO Q12HR [facility]; Protocol Stop: 07/12/21 21:01 Last Admin: 07/09/21 09:02 Dose: 30 mg Documented by: Pantoprazole Sodium (Pantoprazole 40 Mg Tablet) 40 mg PO -BRKFST [facility] Last Admin: 07/09/21 06:18 Dose: 40 mg Documented by: Physical exam: Gen: This is a 70-year-old female awake, alert and oriented 3. Well-developed, well-nourished. HEENT: Head is atraumatic, normocephalic. Pupils equal, round. Sclerae is anicteric. NECK: Supple. No JVD. No lymphadenopathy. No thyromegaly. LUNGS: Diminished breath sounds bilaterally with expiratory wheezing noted and some scattered rhonchi. No intercostal retractions. HEART: Regular rate and rhythm. No murmur. ABDOMEN: Soft. Bowel sounds are present. No masses. No tenderness. EXTREMITIES: No pedal edema. No calf tenderness. NEUROLOGICAL: Patient is awake, alert and oriented x3. Cranial nerves 2 through 12 are grossly intact. Assessment: Chronic obstructive pulmonary disease, acute exacerbation Acute on chronic hypoxic respiratory failure secondary to above and also a component of influenza A, patient chronically wears 3-1/2 L outpatient Influenza A infection History of vertebral depression fracture/osteoporosis History of dysphagia Continued ongoing nicotine abuse, cessation encouraged and counseling provided GI prophylaxis DVT prophylaxis Full code Plan: Recommend patient to continue with breathing inhalational treatments, DuoNeb's, IV steroids, and Tamiflu with pulmonary following Encouraged increased activity as tolerated and wean FiO2 as tolerated, currently on 4 L and chronically wears 3.5 L continuously in the outpatient setting Blood culture preliminary showing coagulase-negative staph which is most likely a contaminant and will repeat cultures and hold on antibiotics is clinical perla picion for infection is low Repeat blood cultures ordered Recommend repeat labs in the a.m. Prognosis is guarded. The impression and plan of care has been dictated by Carmen Yeboah, Nurse Practitioner as directed. Dr. Roni MD I have performed a history and examination and MDM of this patient, discussed the same with the dictator, and agree with the dictator's assessment and plan as written ,documented as a scribe. Based on total visit time, I have performed more than 50% of the visit. Objective - Vital Signs Vital signs: Vital Signs Temp 98 F 07/09/21 04:00 Pulse 80 07/09/21 07:53 Resp 20 07/09/21 04:00 BP 144/67 07/09/21 04:00 Pulse Ox 98 07/09/21 04:00 Intake & Output 07/08/21 07/09/21 07/09/21 18:59 06:59 18:59 Intake Total 590 Output Total 1200 Balance 590 -1200 Intake: Oral 590 Output: Urine 1200 Other: Voiding Method External Catheter External Catheter # Voids 1 - Labs CBC & Chem 7: 07/09/21 06:46 07/09/21 06:46 Labs: Abnormal Lab Results - Last 24 Hours (Table) 07/08/21 07/08/21 07/08/21 Range/Units 12:07 20:20 22:03 MCHC (31.0-37.0) g/dL Lymphocytes # (1.0-4.8) k/uL ABG pH (7.35-7.45) ABG pCO2 (35-45) mmHg ABG pO2 (83-108) mmHg ABG HCO3 (21-25) mmol/L ABG Total CO2 (19-24) mmol/L ABG O2 Saturation (94-97) % Carbon Dioxide 31 H (22-30) mmol/L BUN 35 H (7-17) mg/dL Creatinine 1.29 H (0.52-1.04) mg/dL Glucose 128 H (74-99) mg/dL POC Glucose (mg/dL) 286 H 145 H (75-99) mg/dL 07/08/21 07/09/21 07/09/21 Range/Units 22:10 05:22 06:46 MCHC 30.6 L (31.0-37.0) g/dL Lymphocytes # 0.9 L (1.0-4.8) k/uL ABG pH 7.29 L (7.35-7.45) ABG pCO2 65 H (35-45) mmHg ABG pO2 198 H (83-108) mmHg ABG HCO3 31 H (21-25) mmol/L ABG Total CO2 33 H (19-24) mmol/L ABG O2 Saturation 99.0 H (94-97) % Carbon Dioxide (22-30) mmol/L BUN (7-17) mg/dL Creatinine (0.52-1.04) mg/dL Glucose (74-99) mg/dL POC Glucose (mg/dL) 162 H (75-99) mg/dL 07/09/21 Range/Units 06:46 MCHC (31.0-37.0) g/dL Lymphocytes # (1.0-4.8) k/uL ABG pH (7.35-7.45) ABG pCO2 (35-45) mmHg ABG pO2 (83-108) mmHg ABG HCO3 (21-25) mmol/L ABG Total CO2 (19-24) mmol/L ABG O2 Saturation (94-97) % Carbon Dioxide (22-30) mmol/L BUN 37 H (7-17) mg/dL Creatinine 1.16 H (0.52-1.04) mg/dL Glucose 135 H (74-99) mg/dL POC Glucose (mg/dL) (75-99) mg/dL Microbiology - Last 24 Hours (Table) 07/07/21 23:30 Blood Culture - Preliminary Blood No Growth after 24 hours 07/08/21 18:01 Blood Culture Gram Stain - Preliminary Blood Blood Culture - Preliminary Coagulase Negative Staph
--- NOTE | 2021-07-09 15:33 | P.PN ---
Subjective Progress Note Date: 07/09/21 Principal diagnosis: Acute exacerbation of COPD 70-year-old female seen initially in the emergency room, on July 07. She came with complaints of shortness of breath. She has a well-established history of COPD. She apparently is been short of breath for about 2 weeks, and it has been getting worse. She sees her nurse practitioner in the office. She was given number of medications, which really have not helped. Currently, she is on BiPAP with settings of 12/6 and 50%. She does cough. She feels like she has chest congestion with phlegm, but has not been able to cough any phlegm up. There is no fever or chills. No chest pain or chest discomfort. The patient would like the BiPAP to be taken out of so that she can eat. Her medical problem list includes primarily COPD, hiatal hernia, only one working kidney, difficulty in swallowing, and osteoporosis. Surgical history includes hysterectomy, and hernia repair. She apparently still does smoke. White count 6.5, hemoglobin 13.2, hematocrit 42.9, and platelet count 255,000. D-dimer is 4.08. Sodium 141, potassium 4.2, chlorides 106, CO2 31, BUN 36, and creatinine 1.27. Chest x-ray shows changes of COPD, and some chronic interstitial disease is wall. CT angiogram was negative for PE, showed changes of COPD, and some interstitial changes as well. Reevaluated today on 07/09/2021, continues to have intermittent episodes of cough wheezing and shortness of breath. Patient is on proper course of bronchodil ators, not quite ready for discharge planning. Remains on oxygen at 4 L/m. Apparently patient failed outpatient therapy for her COPD exacerbation, and she is known to be chronically hypoxic. She is normally on 3 L nasal cannula at home. Objective - Vital Signs Vital signs: Vital Signs Temp 98.2 F 07/09/21 09:13 Pulse 82 07/09/21 12:00 Resp 20 07/09/21 12:00 BP 121/57 07/09/21 12:00 Pulse Ox 93 L 07/09/21 12:00 Intake & Output 07/08/21 07/09/21 07/09/21 18:59 06:59 18:59 Intake Total 590 240 Output Total 1200 300 Balance 590 -1200 -60 Intake: Oral 590 240 Output: Urine 1200 300 Other: Voiding Method External Catheter External Catheter External Catheter # Voids 1 - Exam Physical Exam: Revealed 70-year-old female in no distress. On 4 L nasal cannula Head: Atraumatic, normocephalic. HEENT:[Neck is supple.] [No neck masses.] [No thyromegaly.] [No JVD.] Chest: [Scattered rhonchi and wheezes noted bilaterally. Cardiac Exam: [Normal S1 and S2, no S3 gallop, no murmur.] Abdomen: [Soft, nontender, no megaly, no rebound, no guarding, normal bowel sounds.] Extremities: [No clubbing, no edema, no cyanosis.] Neurological Exam: [No focal neurologic deficit.] Psychiatric: Normal mood affect and normal mental status examination. Skin: No rashes - Labs CBC & Chem 7: 07/09/21 06:46 07/09/21 06:46 Labs: Abnormal Lab Results - Last 24 Hours (Table) 07/08/21 07/08/21 07/08/21 Range/Units 20:20 22:03 22:10 MCHC (31.0-37.0) g/dL Lymphocytes # (1.0-4.8) k/uL ABG pH 7.29 L (7.35-7.45) ABG pCO2 65 H (35-45) mmHg ABG pO2 198 H (83-108) mmHg ABG HCO3 31 H (21-25) mmol/L ABG Total CO2 33 H (19-24) mmol/L ABG O2 Saturation 99.0 H (94-97) % Carbon Dioxide 31 H (22-30) mmol/L BUN 35 H (7-17) mg/dL Creatinine 1.29 H (0.52-1.04) mg/dL Glucose 128 H (74-99) mg/dL POC Glucose (mg/dL) 145 H (75-99) mg/dL Hemoglobin A1c (0.0-6.0) % 07/09/21 07/09/21 07/09/21 Range/Units 05:22 06:46 06:46 MCHC 30.6 L (31.0-37.0) g/dL Lymphocytes # 0.9 L (1.0-4.8) k/uL ABG pH (7.35-7.45) ABG pCO2 (35-45) mmHg ABG pO2 (83-108) mmHg ABG HCO3 (21-25) mmol/L ABG Total CO2 (19-24) mmol/L ABG O2 Saturation (94-97) % Carbon Dioxide (22-30) mmol/L BUN (7-17) mg/dL Creatinine (0.52-1.04) mg/dL Glucose (74-99) mg/dL POC Glucose (mg/dL) 162 H (75-99) mg/dL Hemoglobin A1c 6.6 H (0.0-6.0) % 07/09/21 07/09/21 Range/Units 06:46 11:33 MCHC (31.0-37.0) g/dL Lymphocytes # (1.0-4.8) k/uL ABG pH (7.35-7.45) ABG pCO2 (35-45) mmHg ABG pO2 (83-108) mmHg ABG HCO3 (21-25) mmol/L ABG Total CO2 (19-24) mmol/L ABG O2 Saturation (94-97) % Carbon Dioxide (22-30) mmol/L BUN 37 H (7-17) mg/dL Creatinine 1.16 H (0.52-1.04) mg/dL Glucose 135 H (74-99) mg/dL POC Glucose (mg/dL) 166 H (75-99) mg/dL Hemoglobin A1c (0.0-6.0) % Microbiology - Last 24 Hours (Table) 07/07/21 23:30 Blood Culture - Preliminary Blood No Growth after 24 hours 07/08/21 18:01 Blood Culture Gram Stain - Preliminary Blood Blood Culture - Preliminary Coagulase Negative Staph Assessment and Plan Assessment: Impression: Acute on chronic hypoxic respiratory failure Acute exacerbation of COPD Hiatal hernia History of dysphagia Tobacco dependence syndrome History of vertebral compression fracture Osteoporosis Acute influenza A infection Recommendation: Continue tamiflu Continue bronchodilators. Consider discharge planning in the next 24-48 hours. Continue Solu-Medrol. And transition to prednisone possibly tomorrow. We'll continue to follow Time with Patient: Less than 30
[2021-07-09 16:18] LABS: Glucose,Whole Blood 154 mg/dL (75-99)
[2021-07-09 20:30] LABS: Glucose,Whole Blood 177 mg/dL (75-99)
[2021-07-10] MEDS: MORPHINE SULFATE 2 MG/ML SYRINGE IVP PRN (01:45)
[2021-07-10 06:07] LABS: Glucose,Whole Blood 139 mg/dL (75-99)
[2021-07-10] MEDS: methylPREDNISolone SOD SUCCI 125 MG/2 ML VIAL IV SCH ×2 (06:25→13:36)
[2021-07-10] MEDS: PANTOPRAZOLE 40 MG TABLET PO SCH (06:25)
[2021-07-10] MEDS: INSULIN ASPART (NovoLOG) 100 UNIT/ML VIAL SQ SCH ×2 (06:25→13:36)
[2021-07-10] MEDS: IPRATROPIUM-ALBUTEROL 3 ML NEB INHALATION SCH ×2 (08:11→11:46)
[2021-07-10] MEDS: BUDESONIDE 1 MG/2 ML NEBU INHALATION SCH (08:11)
[2021-07-10] MEDS: FORMOTEROL FUMARATE 20 MCG/2 ML NEBU INHALATION SCH (08:11)
[2021-07-10] MEDS: OSELTAMIVIR 60 MG/10 ML ORAL SYRINGE PO SCH (09:54)
[2021-07-10 10:49] VITALS: TEMP 97.7
[2021-07-10 11:10] LABS: Basophils % (A) 1 %; Eosinophils % (A) 0 %; HCT 39.4 % (34.0-46.0); HGB 11.9 gm/dL (11.4-16.0); Hypochromasia Moderate; Lymphocytes # (A) 0.9 k/uL (1.0-4.8); Lymphocytes % (A) 14 %; MCHC 30.1 g/dL (31.0-37.0); MCV 99.8 fL (80.0-100.0); Mean Platelet Volume 7.6; Monocytes # (A) 0.1 k/uL (0-1.0); Monocytes % (A) 1 %; Neutrophils # (A) 5.3 k/uL (1.3-7.7); Neutrophils % (A) 82 %; Platelet Count 247 k/uL (150-450); RBC 3.95 m/uL (3.80-5.40); RDW 14.5 % (11.5-15.5); WBC 6.5 k/uL (3.8-10.6)
[2021-07-10 11:21] LABS: Calcium 8.5 mg/dL (8.4-10.2); Potassium 4.9 mmol/L (3.5-5.1)
[2021-07-10 11:51] LABS: Glucose,Whole Blood 155 mg/dL (75-99)
--- NOTE | 2021-07-10 13:07 | P.PN ---
Subjective Progress Note Date: 07/10/21 Principal diagnosis: Shortness of breath On 07/10/2021 patient seen in follow-up on selective care unit. Patient is awake and alert, in no acute distress, currently on 4 L of oxygen and the pulse ox of 95%. As she did wear BiPAP support part of the night, with pressures of 12 and 6 and FiO2 of 35%. Her O2 saturations have been stable, patient was diagnosed with influenza A infection, and acute exacerbation of COPD. Patient states she is breathing easier, although still not quite back to baseline. No acute events overnight, vital signs have been stable, she remains on IV Solu- Medrol at 60 mg every 6 hours, she remains on Tamiflu. No chest discomfort, no hemoptysis, she does get short of breath with exertion. Sure to have oxygen at home. Lung signs have been stable, no nausea vomiting, no abdominal pain. She remains on nebulized bronchodilators. Her chest x-ray showed COPD, and some interstitial edema, and small right pleural effusion. Objective - Vital Signs Vital signs: Vital Signs Temp 97.7 F 07/10/21 08:00 Pulse 86 07/10/21 11:59 Resp 22 07/10/21 08:00 BP 132/62 07/10/21 08:00 Pulse Ox 91 L 07/10/21 08:00 Intake & Output 07/09/21 07/10/21 07/10/21 18:59 06:59 18:59 Intake Total 240 118 Output Total 300 800 Balance -60 -800 118 Intake: Oral 240 118 Output: Urine 300 800 Other: Voiding Method External Catheter External Catheter External Catheter # Voids 1 - Exam GENERAL EXAM: Alert, pleasant, 70-year-old white female, on 4 L of oxygen pulse ox of 95%, moderately short of breath with conversation, appears to be in no acute distress HEAD: Normocephalic/atraumatic. EYES: Normal reaction of pupils, equal size. Conjunctiva pink, sclera white. NOSE: Clear with pink turbinates. THROAT: No erythema or exudates. NECK: No masses, no JVD, no thyroid enlargement, no adenopathy. CHEST: No chest wall deformity. Symmetrical expansion. LUNGS: Equal air entry with few scattered rhonchi and wheezing CVS: Regular rate and rhythm, normal S1 and S2, no gallops, no murmurs, no rubs ABDOMEN: Soft, nontender. No hepatosplenomegaly, normal bowel sounds, no guarding or rigidity. EXTREMITIES: No clubbing, no edema, no cyanosis, 2+ pulses and upper and lower extremities. MUSCULOSKELETAL: Muscle strength and tone normal. SPINE: No scoliosis or deformity SKIN: No rashes CENTRAL NERVOUS SYSTEM: Alert and oriented -3. No focal deficits, tone is normal in all 4 extremities. PSYCHIATRIC: Alert and oriented -3. Appropriate affect. Intact judgment and insight. - Labs CBC & Chem 7: 07/10/21 10:40 07/10/21 10:40 Labs: Abnormal Lab Results - Last 24 Hours (Table) 07/09/21 07/09/21 07/10/21 Range/Units 16:17 20:28 06:03 MCHC (31.0-37.0) g/dL Lymphocytes # (1.0-4.8) k/uL Carbon Dioxide (22-30) mmol/L BUN (7-17) mg/dL Creatinine (0.52-1.04) mg/dL Glucose (74-99) mg/dL POC Glucose (mg/dL) 154 H 177 H 139 H (75-99) mg/dL 07/10/21 07/10/21 07/10/21 Range/Units 10:40 10:40 11:50 MCHC 30.1 L (31.0-37.0) g/dL Lymphocytes # 0.9 L (1.0-4.8) k/uL Carbon Dioxide 32 H (22-30) mmol/L BUN 45 H (7-17) mg/dL Creatinine 1.08 H (0.52-1.04) mg/dL Glucose 195 H (74-99) mg/dL POC Glucose (mg/dL) 155 H (75-99) mg/dL Microbiology - Last 24 Hours (Table) 07/07/21 23:30 Blood Culture - Preliminary Blood No Growth after 48 hours Assessment and Plan Plan: Assessment: #1. Acute influenza A infection #2. Acute exacerbation of chronic obstructive pulmonary disease #3. Acute on chronic hypoxic respiratory failure secondary to the above, patient normally wears 3-1/2 L of oxygen on a regular basis #4. History of chronic and ongoing nicotine abuse #5. History of dysphagia #6. History of hiatal hernia Plan: She is improving Vital signs have been stable Weaning FiO2 down to home dose O2 of 3-1/2 L Breathing more comfortably although still has some exertional and conversational dyspnea Patient would like to go home today She already has home oxygen She has nebulized and inhaled bronchodilators From pulmonary perspective she could be considered for discharge home today to complete a full course of Tamiflu, prednisone taper, she can continue on DuoNeb, and continue on Dulera and Spiriva Outpatient follow-up with Dr. Landis in the pulmonary clinic in 7-10 days I have personally seen and examined the patient, performed the documentation and the assessment and plan as written. Number of minutes spent on the visit Time with Patient: Less than 30
--- NOTE | 2021-07-10 14:20 | P.DS ---
Providers Date of admission: 07/07/21 21:51 Expected date of discharge: 07/10/21 Attending physician: Toro Hernandez MD Consults: 07/07/21 21:45 Consult Physician Routine Consulting Provider: Darshan Duron Consult Reason/Comments: COPD exacerbation, influenza type A Do you want consulting provider notified?: Yes Primary care physician: Carolyn Grey Hospital Course: Final diagnosis Chronic obstructive pulmonary disease, acute exacerbation Acute on chronic hypoxic respiratory failure secondary to above and also a component of influenza A, patient chronically wears 3-1/2 L outpatient Influenza A infection History of vertebral depression fracture/osteoporosis History of dysphagia Continued ongoing nicotine abuse, cessation encouraged and counseling provided GI prophylaxis DVT prophylaxis Full code Discharge disposition Patient is being discharged in a stable condition with guarded prognosis to home. Patient will follow-up with Dr. Grey in the outpatient setting upon discharge as scheduled. Patient is to also follow up with pulmonary Iris Landis as scheduled. Patient will continue on Tamiflu to complete the course also breathing inhalational treatments and a prednisone taper on discharge Total time taken is greater than 35 minutes. Hospital course This is a 70-year-old female who was recently admitted with increasing shortness of breath with failed outpatient treatment of antibiotics and was being closely monitored with pulmonary following closely. Patient was also found to be influenza A positive and started on Tamiflu. Patient started on high-dose IV steroids along with continuous DuoNeb's and will continue a prednisone taper along with DuoNeb treatments and Tamiflu to complete the course. Recommend outpatient follow-up with primary care provider this week and also patient will follow-up with pulmonary in the outpatient setting as scheduled. Patient normally wears 3-1/2 L via nasal cannula and has a nebulizer along with oxygen and supplies in the home. Patient reports to her daughter managing all of her medications and helping her with appointments and follow-ups. Recommend repeat labs in the outpatient setting when following up with primary care provider. Patient has been evaluated by pulmonary and cleared for discharge today. Currently no reports of chest pain, worsening shortness of breath, or palpitations. Patient is afebrile. No reports of nausea or vomiting and patient is tolerating diet. Patient will be discharged home today. Guarded prognosis. Physical exam: Gen: This is a 70-year-old female who is awake, alert and oriented 3, well- developed, well-nourished HEENT: Head is atraumatic, normocephalic. Pupils equal, round. Sclerae is anicteric. NECK: Supple. No JVD. No lymphadenopathy. No thyromegaly. LUNGS: Diminished breath sounds bilaterally with some scattered rhonchi and minimal wheezing noted on expiration. No intercostal retractions. HEART: Regular rate and rhythm. No murmur. ABDOMEN: Soft. Bowel sounds are present. No masses. No tenderness. EXTREMITIES: No pedal edema. No calf tenderness. NEUROLOGICAL: Patient is awake, alert and oriented x3. Cranial nerves 2 through 12 are grossly intact. Please refer to medication reconciliation sheet for a list of medications. The impression and plan of care has been dictated by Carmen Yeboah, Nurse Practitioner as directed. Dr. Roni MD I have performed a history and examination and MDM of this patient, discussed the same with the dictator, and agree with the dictator's assessment and plan as written ,documented as a scribe. Based on total visit time, I have performed more than 50% of the visit. Patient Condition at Discharge: Fair Plan - Discharge Summary Discharge Rx Participant: No New Discharge Prescriptions: New Pantoprazole [Protonix] 40 mg PO AC-BRKFST 14 Days #14 tab Ipratropium-Albuterol Nebulize [Duoneb 0.5 mg-3 mg/3 ml Soln] 3 ml INHALATION RT-QID 30 Days #120 each Ipratropium-Albuterol Nebulize [Duoneb 0.5 mg-3 mg/3 ml Soln] 3 ml INHALATION RT-Q4H PRN ml PRN Reason: Shortness Of Breath Or Wheezing predniSONE 10 mg PO DIRECTED #30 tab Oseltamivir 6Mg/ml Oral Susp [Tamiflu] 30 mg PO Q12HR 3 Days #30 ml Continue Mometasone/Formoterol [Dulera 200 Mcg-5 Mcg Inhaler] 2 puff INHALATION RT-BID Tiotropium 18 Mcg/Puff [Spiriva] 1 puff INHALATION RT-DAILY Denosumab [Prolia] 60 mg SQ Q180D Albuterol Nebulized [Ventolin Nebulized] 2.5 mg INHALATION RT-QID PRN PRN Reason: Shortness Of Breath Discontinued predniSONE See Taper PO DAILY Azithromycin [Zithromax Z-pack (6 tabs)] See Taper PO DAILY predniSONE [Deltasone] 20 mg PO ONCE Discharge Medication List Mometasone/Formoterol [Dulera 200 Mcg-5 Mcg Inhaler] 2 puff INHALATION RT-BID 05/13/14 [History] Denosumab [Prolia] 60 mg SQ Q180D 04/10/20 [History] Tiotropium 18 Mcg/Puff [Spiriva] 1 puff INHALATION RT-DAILY 04/10/20 [History] Albuterol Nebulized [Ventolin Nebulized] 2.5 mg INHALATION RT-QID PRN 07/07/21 [History] Ipratropium-Albuterol Nebulize [Duoneb 0.5 mg-3 mg/3 ml Soln] 3 ml INHALATION RT-Q4H PRN ml 07/10/21 [Rx] Ipratropium-Albuterol Nebulize [Duoneb 0.5 mg-3 mg/3 ml Soln] 3 ml INHALATION RT-QID 30 Days #120 each 07/10/21 [Rx] Oseltamivir 6Mg/ml Oral Susp [Tamiflu] 30 mg PO Q12HR 3 Days #30 ml 07/10/21 [Rx] Pantoprazole [Protonix] 40 mg PO AC-BRKFST 14 Days #14 tab 07/10/21 [Rx] predniSONE 10 mg PO DIRECTED #30 tab 07/10/21 [Rx] Follow up Appointment(s)/Referral(s): Iris Landis NPC [Nurse Practitioner] - 08/07/21 2:45 pm (Office will mail paperwork for you to fill out. ) Carolyn Grey DO [Primary Care Provider] - 07/11/21 8:00 am (Please call if this appointment time no longer works for you.) Patient Instructions/Handouts: Influenza (DC) Activity/Diet/Wound Care/Special Instructions: Patient requesting RN contact daughter at discharge to review discharge medications - Daughter: Rose [phone] Activity Limited until follow-up Follow-up with primary care provider on discharge Follow-up with pulmonary outpatient Continue taking medications as prescribed Continue with oxygen supplementation Continue with breathing inhalational treatments and inhalers as scheduled Continue prednisone taper until finished Continue low potassium diet Discharge Disposition: HOME SELF-CARE
[2021-07-10 14:46] VITALS: BP 146/71; PULSE 71; RESP 20
== END 2021-07-10 14:47 | disposition home or self-care (01) | DRG 193 ==
LOC: EC 18:01 → 4SSUR 21:51 → 3SCARD 22:00
PROVIDERS: ADMIT Internal Medicine; ATTEND Internal Medicine
PROC: 5A09457 Assistance with Respiratory Ventilation, 24-96 Consecutive Hours, Continuous Positive Airway Pressure (ICD-10-PCS; principal; 2021-07-07)
DX: J10.1 Influenza due to other identified influenza virus with other respiratory manifestations (principal); J96.21 Acute and chronic respiratory failure with hypoxia; J44.1 Chronic obstructive pulmonary disease with (acute) exacerbation; J90 Pleural effusion, not elsewhere classified; J84.10 Pulmonary fibrosis, unspecified; Z20.822 Contact with and (suspected) exposure to COVID-19; M81.0 Age-related osteoporosis without current pathological fracture; Z87.310 Personal history of (healed) osteoporosis fracture; K44.9 Diaphragmatic hernia without obstruction or gangrene; R13.10 Dysphagia, unspecified; N28.9 Disorder of kidney and ureter, unspecified; F17.200 Nicotine dependence, unspecified, uncomplicated; Z71.6 Tobacco abuse counseling; Z79.51 Long term (current) use of inhaled steroids; Z79.899 Other long term (current) drug therapy; Z87.19 Personal history of other diseases of the digestive system; Z87.42 Personal history of other diseases of the female genital tract; Z90.710 Acquired absence of both cervix and uterus; Z98.890 Other specified postprocedural states; Z88.2 Allergy status to sulfonamides
CPT/HCPCS: 36415; 36600; 71045; 71046; 71275; 80048; 80053; 82805; 83036; 83605; 83735; 83880; 84484; 85025; 85379; 85610; 85730; 87040; 87502; 87635; 93005; 94640; 94660; 94760; 96361; 96374; 96375; 99291

== ENCOUNTER 2021-07-30 08:47 | Emergency (ER) | payer MEDICARE ==
[2021-07-30] MEDS ORDERED: SODIUM CHLORIDE 0.9% 1,000 ML IV STA (09:18)
[2021-07-30] MEDS ORDERED: IPRATROPIUM-ALBUTEROL 3 ML NEB INHALATION STA ×2 (09:18→11:47)
[2021-07-30] MEDS ORDERED: methylPREDNISolone SOD SUCCI 125 MG/2 ML VIAL IV STA (09:18)
[2021-07-30] MEDS ORDERED: MAGNESIUM SULFATE-D5W PMX 1 GM in DEXTROSE/WATER 1 100ML.BAG IVPB ONE (09:19)
[2021-07-30] MEDS ORDERED: MORPHINE SULFATE 2 MG/ML SYRINGE IVP STA (09:20)
[2021-07-30] MEDS ORDERED: GABAPENTIN 300 MG CAP PO STA (09:20)
--- NOTE | 2021-07-30 10:08 | CT ---
EXAMINATION TYPE: CT lumbar spine wo con DATE OF EXAM: 07/30/2021 9:37 AM COMPARISON: CT dated 11/06/2012. HISTORY: radiculopathy, fall CT DLP: 607.8 mGycm Automated exposure control for dose reduction was used. Technique: Unenhanced CT of the lumbar spine was performed. Bone and soft tissue window settings are submitted as well as coronal and sagittal reconstructions. FINDINGS: Lumbarized S1. Mild Dextroscoliosis of the lumbar spine with apex at L3 level, possibly positional. P reserved lumbar lordosis. No significant anterolisthesis or retrolisthesis. No definite vertebral bod y collapse or acute displaced fracture. Tiny multilevel opposing endplate osteophytosis. Rather maint ained intervertebral disc spaces. L1-L2: No significant disc disease, central spinal canal stenosis or neuroforaminal stenosis. L2-L3: Mild diffuse posterior disc bulge, causing no significant central spinal canal stenosis or sig nificant neuroforaminal stenosis. L3-L4: Left focal foraminal disc protrusion, causing no significant central spinal canal stenosis and mild left neuroforaminal stenosis. L4-L5: Mild diffuse posterior disc bulge without significant central spinal canal stenosis or signifi cant neuroforaminal stenosis. L5-S1: Mild diffuse posterior disc bulge, causing no significant central spinal canal stenosis or radha roforaminal stenosis. Questionable left L3 perineural cyst. Scattered arterial atherosclerotic calcification. Few millimetr ic calculi are seen within the right kidney. Markedly atrophic left kidney with renal pelvis urotheli al thickening and dilatation surrounded by chronic inflammatory changes/fibrosis inseparable from the pancreas, appreciated previously. Recommend correlation with urinalysis results. No paraspinal lesio n. Pulmonary basal subsegmental atelectasis. IMPRESSION: No evidence of acute traumatic bony injury of the lumbar spine. Other findings as detailed above.
[2021-07-30 10:34] LABS: HCT 38.7 % (34.0-46.0); HGB 11.6 gm/dL (11.4-16.0); MCV 96.8 fL (80.0-100.0); Mean Platelet Volume 7.8; Platelet Count 293 k/uL (150-450); RDW 14.5 % (11.5-15.5); WBC 4.2 k/uL (3.8-10.6)
--- NOTE | 2021-07-30 10:38 | XR ---
EXAMINATION TYPE: XR knee complete LT, XR Hip LT and AP Pelvis, XR femur LT DATE OF EXAM: 07/30/2021 COMPARISON: NONE INDICATION: Fall and pain TECHNIQUE: 3 views of the left knee joint, AP view of the pelvis, 2 views of the left hip and 2 views of the left femur. FINDINGS: Diffuse osteopenia. No significant degenerative changes of the hip joints. No definite acute pelvic b one fracture identified. Degenerative changes of the lower lumbar spine. Grossly unremarkable sacroiliac joints. Arterial atherosclerotic calcifications. No definite left hip or left femoral bone fracture. Minimal degenerative changes of the left knee joint. No definite acute knee fracture identified. No s izable knee joint effusion. IMPRESSION: No definite acute fracture line identified. Incidental findings as described above.
--- NOTE | 2021-07-30 10:46 | ED ---
General Adult HPI - General Chief complaint: Shortness of Breath Stated complaint: weakness, dizziness Time Seen by Provider: 07/30/21 08:58 Source: patient, RN notes reviewed, old records reviewed Mode of arrival: wheelchair Limitations: no limitations - History of Present Illness Initial comments: Patient is a 70-year-old female with past medical history remarkable for COPD, CK D, chronic lower back pain that has been exacerbated for the last week, who presents emergency department for radiculopathy type pain down her left leg as well as shortness of breath. Both have been ongoing for a few days to 1 week. Endorses a cough that is nonproductive. Denies fevers. Denies sick contacts. Did have influenza recently. Denies urinary complaints. Denies abdominal pain, nausea, vomiting. Denies diarrhea. Has no chest pain. Is on 3 L nasal cannula at home. No other acute complaints at this time. Presents for further evaluation at this time.Denies any urinary or bowel incontinence or retention. Denies saddle anesthesias. Describes the pain as a shooting sensation from her lower back and buttocks down her left leg towards her knee. Denies any recent falls. - Related Data Home Medications Medication Instructions Recorded Confirmed Mometasone/Formoterol [Dulera 200 2 puff INHALATION RT-BID 05/13/14 07/07/21 Mcg-5 Mcg Inhaler] Denosumab [Prolia] 60 mg SQ Q180D 04/10/20 07/07/21 Tiotropium 18 Mcg/Puff [Spiriva] 1 puff INHALATION RT-DAILY 04/10/20 07/07/21 Albuterol Nebulized [Ventolin 2.5 mg INHALATION RT-QID PRN 07/07/21 07/07/21 Nebulized] Previous Rx's Medication Instructions Recorded Ipratropium-Albuterol Nebulize 3 ml INHALATION RT-Q4H PRN ml 07/10/21 [Duoneb 0.5 mg-3 mg/3 ml Soln] Ipratropium-Albuterol Nebulize 3 ml INHALATION RT-QID 30 Days 07/10/21 [Duoneb 0.5 mg-3 mg/3 ml Soln] #120 each Oseltamivir 6Mg/ml Oral Susp 30 mg PO Q12HR 3 Days #30 ml 07/10/21 [Tamiflu] Pantoprazole [Protonix] 40 mg PO AC-BRKFST 14 Days #14 tab 07/10/21 predniSONE 10 mg PO DIRECTED #30 tab 07/10/21 Gabapentin [Neurontin] 300 mg PO BID PRN 3 Days #6 cap 07/30/21 predniSONE [Deltasone] 40 mg PO DAILY 5 Days #10 tab 07/30/21 Allergies Allergy/AdvReac Type Severity Reaction Status Date / Time sulfamethoxazole Allergy Unknown Verified 07/30/21 08:54 [From Bactrim] trimethoprim [From Bactrim] Allergy Unknown Verified 07/30/21 08:54 Review of Systems ROS Statement: Those systems with pertinent positive or pertinent negative responses have been documented in the HPI. Review of Systems: CONST: Denies fever EYES: Denies blurry vision ENT: Denies nasal congestion C/V: Denies Chest pain RESP: Denies shortness of breath GI: Denies abdominal pain : Denies dysuria SKIN: Denies rash. MSK: Endorses lower back pain, flank pain. NEURO: Denies headache ROS Other: All systems not noted in ROS Statement are negative. Past Medical History Past Medical History: COPD Additional Past Medical History / Comment(s): STATES ONLY 1 WORKING KIDNEY, HIATAL HERNIA, DIFFICULTY SWALLOWING. History of Any Multi-Drug Resistant Organisms: None Reported Past Surgical History: Hernia Repair, Hysterectomy Additional Past Surgical History / Comment(s): INGUINAL HERNIA. Past Anesthesia/Blood Transfusion Reactions: Postoperative Nausea & Vomiting (PONV) Past Psychological History: No Psychological Hx Reported Smoking Status: Current some day smoker Past Alcohol Use History: Rare Past Drug Use History: None Reported General Exam - General Exam Comments Initial Comments: General: Appears in no acute distress. HEAD: Normal with no signs of head trauma. EYES: PERRLA, EOMI, conjunctiva normal, no discharge. ENT: Hearing grossly intact, normal oropharynx. RESPIRATORY: Bilateral end expiratory wheezing. No increased work of breathing. More hypoxic in triage, however currently 96% with a good waveform on her home 3 L nasal cannula. C/V: Regular rate and rhythm. S1 and S2 auscultated, no edema, peripheral pulses 2+ and intact throughout ABD: Abd is soft, nontender, nondistended EXT: No obvious deformity. Mild left buttock pain and lumbar spine tenderness to palpation. No obvious pain on left knee. SKIN: No rashes or lesions observed on exposed skin. NEURO: Alert and oriented 4. Limitations: no limitations Course Vital Signs 07/30/21 07/30/21 07/30/21 08:49 09:02 10:03 Temperature 98.2 F Pulse Rate 103 H 100 Respiratory 18 22 20 Rate Blood Pressure 112/60 O2 Sat by Pulse 87 L Oximetry 07/30/21 07/30/21 07/30/21 10:11 11:56 12:05 Temperature Pulse Rate 102 H 86 95 Respiratory 20 15 18 Rate Blood Pressure O2 Sat by Pulse Oximetry 07/30/21 12:54 Temperature 98.3 F Pulse Rate 96 Respiratory 18 Rate Blood Pressure 113/54 O2 Sat by Pulse 93 L Oximetry Medical Decision Making - Medical Decision Making Based on the patient's presentation and physical exam, I'm concerned for an acute COPD exacerbation for her current symptoms. Patient is also having left lower extremity dependent is likely secondary to radiculopathy. This appears chronic but we will obtain imaging as well as cardio pulmonary workup. This includes labs and EKG. She'll be treated for COPD exacerbation with IV steroids, morphine, breathing treatment. She'll receive morphine, gabapentin, 1 L fluid bolus as well. She was in agreement this plan. She does not have signs or symptoms of cauda equina syndrome. EKG showed no signs of acute ischemia. There was a good deal of baseline artifact. Patient is Covid, influenza negative. X-rays of the pelvis, left hip, left lower extremity showed no fractures. There is degenerative disease. Lumbar spine CT showed no obvious injury. There are degenerative changes. This includes posterior disc bulging without significant central spinal Canal stenosis. No obvious injury or deficit.Patient's laboratory studies are remarkable for a very slight AK I with a Cr 1.19. No other findings. On reevaluation, patient's pain is resolved. Wheezing is improved. Pulse ox remained stable on 2 L nasal cannula. Is in no respiratory distress. I did offer admission for COPD treatment but she would like to go home at this time. I believe this is reasonable. She'll be discharged home on steroids in addition to recommending breathing treatments. She does not require refills of breathing treatments. She was in agreement this plan. Will be given a short course of Neurontin for home as well. I will provide the patient with a prescription for Neurontin, prednisone. I instructed the patient to follow up with their PCP in the next 3 days. I explained that the patient should return to the emergency department if they experience any worsening symptoms. Strict return precautions were discussed with the patient. The patient expressed understanding of these instructions. I answ ered all questions that the patient had. The patient was discharged home in good condition with their prescriptions and follow up information. - Lab Data Result diagrams: 07/30/21 09:23 07/30/21 10:36 Lab Results 07/30/21 07/30/21 07/30/21 Range/Units 09:23 09:23 09:23 WBC 4.2 (3.8-10.6) k/uL RBC 4.00 (3.80-5.40) m/uL Hgb 11.6 (11.4-16.0) gm/dL Hct 38.7 (34.0-46.0) % MCV 96.8 (80.0-100.0) fL MCH 29.0 (25.0-35.0) pg MCHC 30.0 L (31.0-37.0) g/dL RDW 14.5 (11.5-15.5) % Plt Count 293 (150-450) k/uL MPV 7.8 Neutrophils % (Manual) 66 % Band Neuts % (Manual) 1 % Lymphocytes % (Manual) 25 % Monocytes % (Manual) 9 % Myelocytes % 1 % Neutrophils # (Manual) 2.80 (1.3-7.7) k/uL Lymphocytes # (Manual) 1.05 (1.0-4.8) k/uL Monocytes # (Manual) 0.38 (0-1.0) k/uL Myelocytes # (Manual) 0.04 H (0) k/uL Nucleated RBCs 0 (0-0) /100 WBC Manual Slide Review Performed RBC Morphology Normal PT (9.0-12.0) sec INR (<1.2) APTT (22.0-30.0) sec Sodium (137-145) mmol/L Potassium (3.5-5.1) mmol/L Chloride (98-107) mmol/L Carbon Dioxide (22-30) mmol/L Anion Gap mmol/L BUN (7-17) mg/dL Creatinine (0.52-1.04) mg/dL Est GFR (CKD-EPI)AfAm (>60 ml/min/1.73 sqM) Est GFR (CKD-EPI)NonAf (>60 ml/min/1.73 sqM) Glucose (74-99) mg/dL Calcium (8.4-10.2) mg/dL Magnesium (1.6-2.3) mg/dL Total Bilirubin (0.2-1.3) mg/dL AST (14-36) U/L ALT (4-34) U/L Alkaline Phosphatase (38-126) U/L Total Protein (6.3-8.2) g/dL Albumin (3.5-5.0) g/dL Coronavirus (PCR) Not Detected (Not Detectd) Influenza Type A RNA Not Detected (Not Detectd) Influenza Type B (PCR) Not Detected (Not Detectd) 07/30/21 07/30/21 Range/Units 10:36 10:36 WBC (3.8-10.6) k/uL RBC (3.80-5.40) m/uL Hgb (11.4-16.0) gm/dL Hct (34.0-46.0) % MCV (80.0-100.0) fL MCH (25.0-35.0) pg MCHC (31.0-37.0) g/dL RDW (11.5-15.5) % Plt Count (150-450) k/uL MPV Neutrophils % (Manual) % Band Neuts % (Manual) % Lymphocytes % (Manual) % Monocytes % (Manual) % Myelocytes % % Neutrophils # (Manual) (1.3-7.7) k/uL Lymphocytes # (Manual) (1.0-4.8) k/uL Monocytes # (Manual) (0-1.0) k/uL Myelocytes # (Manual) (0) k/uL Nucleated RBCs (0-0) /100 WBC Manual Slide Review RBC Morphology PT 10.6 (9.0-12.0) sec INR 1.0 (<1.2) APTT 21.7 L (22.0-30.0) sec Sodium 141 (137-145) mmol/L Potassium 3.7 (3.5-5.1) mmol/L Chloride 104 (98-107) mmol/L Carbon Dioxide 29 (22-30) mmol/L Anion Gap 8 mmol/L BUN 27 H (7-17) mg/dL Creatinine 1.19 H (0.52-1.04) mg/dL Est GFR (CKD-EPI)AfAm 54 (>60 ml/min/1.73 sqM) Est GFR (CKD-EPI)NonAf 47 (>60 ml/min/1.73 sqM) Glucose 118 H (74-99) mg/dL Calcium 8.5 (8.4-10.2) mg/dL Magnesium 1.6 (1.6-2.3) mg/dL Total Bilirubin 0.3 (0.2-1.3) mg/dL AST 23 (14-36) U/L ALT 16 (4-34) U/L Alkaline Phosphatase 56 (38-126) U/L Total Protein 6.4 (6.3-8.2) g/dL Albumin 2.8 L (3.5-5.0) g/dL Coronavirus (PCR) (Not Detectd) Influenza Type A RNA (Not Detectd) Influenza Type B (PCR) (Not Detectd) - EKG Data -: EKG Interpreted by Me EKG Comments: 12-lead Electrocardiogram Interpretation Note EKG was reviewed and interpreted by myself. 12-lead ECG performed at 0905 is interpreted by me as revealing normal sinus rhythm at a rate of 99 beats per minute. Fontanelle is normal. VT interval is 124 ms, QRS duration is 88 ms, QTc is 312 ms.. There were no ST or T wave abnormalities to suggest myocardial ischemia or injury. R wave progression across the precordium was satisfactory. By my interpretation this EKG is non-diagnostic for acute ischemia. There is a good deal of baseline artifact which makes interpretation difficult. Disposition Clinical Impression: COPD exacerbation, Lumbar back pain with radiculopathy affecting left lower extremity Disposition: HOME SELF-CARE Condition: Good Instructions (If sedation given, give patient instructions): COPD (Chronic Obstructive Pulmonary Disease) (ED), Lumbar Radiculopathy (ED) Prescriptions: predniSONE [Deltasone] 40 mg PO DAILY 5 Days #10 tab Gabapentin [Neurontin] 300 mg PO BID PRN 3 Days #6 cap PRN Reason: Pain Is patient prescribed a controlled substance at d/c from ED?: Yes When asked, does pt state using other controlled substances?: No If prescribed controlled substance>3 days was MAPS reviewed?: Prescribed <3 Days If opioid is for acute pain is fill amount 7 days or less?: Yes Referrals: Carolyn Mahmood DO [Primary Care Provider] - 1-2 days Time of Disposition: 12:20
--- NOTE | 2021-07-30 10:50 | XR ---
EXAMINATION TYPE: XR chest 2V DATE OF EXAM: 07/30/2021 COMPARISON: 07/08/[address] 07/07/2021 HISTORY: 70 year-old female shortness of breath, difficulty breathing, dizziness, weakness, fall TECHNIQUE: AP and lateral views FINDINGS: Heart normal size. Hyperinflation. Increased interstitial changes especially mid and lower lungs and some mild patchy lower lung densities. No sizable pleural effusion. Anterior wedging of T7 is unchang ed from CT 07/07/2021. IMPRESSION: COPD and worsening interstitial changes. Correlate for possible etiologies such as atypical pneumonia versus mild CHF.
[2021-07-30 11:22] LABS: Albumin 2.8 g/dL (3.5-5.0); Calcium 8.5 mg/dL (8.4-10.2); Magnesium 1.6 mg/dL (1.6-2.3); Potassium 3.7 mmol/L (3.5-5.1); Total Bilirubin 0.3 mg/dL (0.2-1.3); Total Protein 6.4 g/dL (6.3-8.2)
[2021-07-30 11:25] LABS: Prothrombin Time 10.6 sec (9.0-12.0)
[2021-07-30 11:33] LABS: Band Neutrophils % 1 %; Lymphocytes # (M) 1.05 k/uL (1.0-4.8); Monocytes # (M) 0.38 k/uL (0-1.0); Myelocytes # (M) 0.04 k/uL (0); Myelocytes % 1 %; Neutrophils % (M) 66 %; Nucleated Red Blood Cells 0 /100 WBC (0-0); Total Cells Counted 200
[2021-07-30 11:38] LABS: Partial Thromboplastin Time 21.7 sec (22.0-30.0)
[2021-07-30 12:02] LABS: RBC Morphology Normal
[2021-07-30 12:05] VITALS: RESP 18
[2021-07-30 12:55] VITALS: BP 113/54; PULSE 96; TEMP 98.3
== END 2021-07-30 12:54 | disposition home or self-care (01) ==
LOC: EC 08:47
DX: J44.1 Chronic obstructive pulmonary disease with (acute) exacerbation (principal); M54.16 Radiculopathy, lumbar region; J44.9 Chronic obstructive pulmonary disease, unspecified; F17.200 Nicotine dependence, unspecified, uncomplicated; Z20.822 Contact with and (suspected) exposure to COVID-19; Z88.2 Allergy status to sulfonamides; Z88.1 Allergy status to other antibiotic agents
CPT/HCPCS: 36415; 94640; 80053; 83735; 85025; 85610; 85730; 87502; 87635; 73502; 73552; 73562; 71046; 72131; 99285; 96365; 96375; J2930; J2270; J3475

== ENCOUNTER → 2021-08-06 | Outpatient (CLI) | payer MEDICARE ==
--- NOTE | 2021-08-06 22:53 | CTL ---
EXAMINATION TYPE: CT Low Dose Lung DATE OF EXAM ORDERED: 08/06/2021 HISTORY: Tobacco use. Lung cancer screening CT DLP: 79.[address] CTDI: 2.1 mGy Automated exposure control for dose reduction was used. SCREENING VISIT: Follow-up COMPARISON: CT dated 04/24/2021 TECHNIQUE: Low dose computed tomography scan was performed through the chest at 1 mm thick sections a nd reconstructed images in multiple planes at 1 mm and [address] DIAGNOSTIC QUALITY: Satisfactory FINDINGS: LUNG NODULES: Middle lobe solid [address] image 203. This nodule is new. Left upper lobe solid bilobed [address] image 138. This nodule is new. 6 mm right upper lobe posterior nodule image 146, compared to 7 mm previously. Stable left lower lobe pleural-based 5 mm nodule. Newly seen infiltration/consolidation at the posterolateral aspect of the left lung base, possibly in flammatory/infectious in etiology. Similar yet smaller foci are seen in the right lower lobe. LUNGS: COPD: Severity: Severe Fibrosis: Severity: Mild Lymph nodes: No pathologically enlarged lymph nodes. Other findings: None RIGHT PLEURAL SPACE: Effusion: None Calcification: None Thickening: None Pneumothorax: None LEFT PLEURAL SPACE: Effusion: None Calcification: None Thickening: None Pneumothorax: None HEART: Heart Size: Normal Coronary Calcification: Severe Pericardial Effusion: None OTHER FINDINGS: Upper abdomen: Small sliding hiatal hernia. Grossly stable splenic cyst measuring 5.8 cm. 2 mm nonobs tructing calculus at the upper pole of the right kidney. Atrophic left kidney. Bony thorax: Stable T7 vertebral body collapse. Osteopenia. Supraclavicular region: None Other: Scattered arterial atherosclerotic calcifications. IMPRESSION: Newly seen focal infiltration/consolidation at the posterolateral aspect of the left lung base with scattered newly seen pulmonary nodules as described above, possibly inflammatory/infectiou s in etiology. Recommend follow-up CT scan in 2-3 months for reassessment. Other findings as describe d above. CT LUNG RAD AND CT CHEST RECOMMENDATION: Lung-Rad 4A Suspicious: Follow-up 3 month LDCT or PET/CT may be used when there is a > 8 mm solid component. S Modifier (other clinically significant findings): As above.
== END | disposition home or self-care (01) ==
LOC: RADCTMAIN 15:22
PROVIDERS: ATTEND Family Medicine
DX: Z12.2 Encounter for screening for malignant neoplasm of respiratory organs (principal); R91.8 Other nonspecific abnormal finding of lung field; Z87.891 Personal history of nicotine dependence
CPT/HCPCS: 71271

== ENCOUNTER 2021-08-08 18:55 | Observation (INO) | payer MEDICARE ==
--- NOTE | 2021-08-08 19:29 | US ---
EXAMINATION TYPE: US venous doppler duplex LE DATE OF EXAM: 08/08/2021 6:44 PM COMPARISON: NONE CLINICAL HISTORY: EDEMA,PAIN IN LEFT ANKLE AND JOINTS OF LEFT FOOT. Edema and pain of left ankle. SIDE PERFORMED: Bilateral TECHNIQUE: The lower extremity deep venous system is examined utilizing real time linear array sonog tonya with graded compression, doppler sonography and color-flow sonography. VESSELS IMAGED: Common Femoral Vein Deep Femoral Vein Greater Saphenous Vein * Femoral Vein Popliteal Vein Small Saphenous Vein * Proximal Calf Veins (* superficial vessels) Left PTV Left Peroneal Grayscale, color doppler, spectral doppler imaging performed of the deep veins of the lower extremiti es. Right Leg: Negative for DVT Left Leg: There is evidence of thrombus within the proximal, mid, and distal femoral vein, popliteal vein, PTVs, and peroneal veins. IMPRESSION: 1. Extensive left lower extremity deep vein thrombosis involving the femoral vein, popliteal vein and posterior tibial veins as well as superficial thrombophlebitis of the peroneal vein. 2. No evidence of deep vein thrombosis of the right lower extremity.
[2021-08-08] MEDS ORDERED: HEPARIN SODIUM 1,000 UN/ML (10ML VL) IV PRN (21:40)
[2021-08-08] MEDS ORDERED: HEPARIN SODIUM 1,000 UN/ML (10ML VL) IV ONE (21:40)
[2021-08-08 22:08] LABS: Anisocytosis Slight; HCT 37.8 % (34.0-46.0); HGB 11.8 gm/dL (11.4-16.0); Hypochromasia Slight; MCH 30.9 pg (25.0-35.0); MCHC 31.2 g/dL (31.0-37.0); Macrocytosis Slight; Mean Platelet Volume 7.4; Platelet Count 301 k/uL (150-450); RBC 3.82 m/uL (3.80-5.40); WBC 5.3 k/uL (3.8-10.6)
[2021-08-08 22:19] LABS: Albumin 3.8 g/dL (3.5-5.0); Calcium 8.9 mg/dL (8.4-10.2); Total Bilirubin 0.4 mg/dL (0.2-1.3); Total Protein 7.2 g/dL (6.3-8.2)
[2021-08-08 22:27] LABS: Potassium 4.6 mmol/L (3.5-5.1)
[2021-08-08] MEDS ORDERED: SODIUM CHLORIDE 0.9% 1,000 ML IV ONE (22:37)
[2021-08-08 22:56] LABS: INR 0.9 (<1.2); Partial Thromboplastin Time 21.6 sec (22.0-30.0); Prothrombin Time 9.8 sec (9.0-12.0)
[2021-08-08] MEDS ORDERED: SYMBICORT 160-4.5 MCG INHALER INHALATION STA (22:56)
[2021-08-08] MEDS ORDERED: NALOXONE 0.4 MG/ML 1 ML VIAL IV PRN (22:58)
[2021-08-08] MEDS ORDERED: ACETAMINOPHEN TAB 325 MG TAB PO PRN (22:58)
[2021-08-08] MEDS: HEPARIN SOD,PORK IN 0.45% NACL 25,000 UNIT in 0.45% NACL 1 250ML.BAG IV SCH (23:05)
[2021-08-08 23:12] LABS: Lymphocytes # (M) 2.49 k/uL (1.0-4.8); Monocytes # (M) 0.11 k/uL (0-1.0); Neutrophils % (M) 51 %; Nucleated Red Blood Cells 0 /100 WBC (0-0); Total Cells Counted 100
--- NOTE | 2021-08-08 23:21 | ED ---
General Adult HPI - General Chief complaint: Recheck/Abnormal Lab/Rx Stated complaint: DVT+ Time Seen by Provider: 08/08/21 21:29 Source: patient Mode of arrival: ambulatory Limitations: no limitations - History of Present Illness Initial comments: Patient is a 70-year-old female presenting for evaluation of DVT. Patient has had ongoing left lower extremity swelling for the last several days. She had an outpatient lower extremity Doppler ultrasound today which confirmed the presence of a DVT. Patient admits to shortness of breath, she has COPD and states that she cannot tell if it is changed from her regular baseline. She denies any lower extremity tenderness, redness, difficulty with range of motion. She denies any chest pain, palpitations, fever, chills, nausea, vomiting, abdominal pain, dysuria, hematuria, urgency, frequency, diarrhea, hematochezia, melena. - Related Data Home Medications Medication Instructions Recorded Confirmed Mometasone/Formoterol [Dulera 200 2 puff INHALATION RT-BID 05/13/14 08/08/21 Mcg-5 Mcg Inhaler] Denosumab [Prolia] 60 mg SQ Q180D 04/10/20 08/08/21 Tiotropium 18 Mcg/Puff [Spiriva] 1 puff INHALATION RT-DAILY 04/10/20 08/08/21 Albuterol Nebulized [Ventolin 2.5 mg INHALATION RT-QID PRN 07/07/21 08/08/21 Nebulized] Albuterol Sulfate [Albuterol 2 puff PO RT-Q6H PRN 08/08/21 08/08/21 Sulfate Hfa] Previous Rx's Medication Instructions Recorded Ipratropium-Albuterol Nebulize 3 ml INHALATION RT-Q4H PRN ml 07/10/21 [Duoneb 0.5 mg-3 mg/3 ml Soln] Ipratropium-Albuterol Nebulize 3 ml INHALATION RT-QID 30 Days 07/10/21 [Duoneb 0.5 mg-3 mg/3 ml Soln] #120 each Pantoprazole [Protonix] 40 mg PO AC-BRKFST 14 Days #14 tab 07/10/21 Gabapentin [Neurontin] 300 mg PO BID PRN 3 Days #6 cap 07/30/21 Allergies Allergy/AdvReac Type Severity Reaction Status Date / Time sulfamethoxazole Allergy Unknown Verified 08/08/21 23:04 [From Bactrim] trimethoprim [From Bactrim] Allergy Unknown Verified 08/08/21 23:04 Review of Systems ROS Statement: Those systems with pertinent positive or pertinent negative responses have been documented in the HPI. ROS Other: All systems not noted in ROS Statement are negative. Past Medical History Past Medical History: COPD Additional Past Medical History / Comment(s): STATES ONLY 1 WORKING KIDNEY, HIATAL HERNIA, DIFFICULTY SWALLOWING. History of Any Multi-Drug Resistant Organisms: None Reported Past Surgical History: Hernia Repair, Hysterectomy Additional Past Surgical History / Comment(s): INGUINAL HERNIA. Past Anesthesia/Blood Transfusion Reactions: Postoperative Nausea & Vomiting (PONV) Past Psychological History: No Psychological Hx Reported Smoking Status: Current some day smoker Past Alcohol Use History: Rare Past Drug Use History: None Reported General Exam Limitations: no limitations General appearance: alert, in no apparent distress Head exam: Present: atraumatic, normocephalic, normal inspection Eye exam: Present: normal appearance, EOMI. Absent: scleral icterus Neck exam: Present: normal inspection Respiratory exam: Present: normal lung sounds bilaterally. Absent: respiratory distress, wheezes, rales, rhonchi, stridor Cardiovascular Exam: Present: regular rate, normal rhythm, normal heart sounds. Absent: systolic murmur, diastolic murmur, rubs, gallop, clicks Left Lower Leg exam: Present: full ROM, swelling. Absent: tenderness, abrasion, ecch ymosis Neurovascular tendon exam: Absent: abnormal cap refill, motor deficit, sensory deficit Neurological exam: Present: alert, oriented X3, CN II-XII intact Psychiatric exam: Present: normal affect, normal mood Skin exam: Present: warm, dry, intact, normal color. Absent: rash Course Vital Signs 08/08/21 08/08/21 19:01 22:16 Temperature 98.3 F Pulse Rate 82 84 Respiratory 18 18 Rate Blood Pressure 123/61 124/76 O2 Sat by Pulse 96 97 Oximetry Medical Decision Making - Medical Decision Making Patient is a 70-year-old female presenting for evaluation of left-sided DVT. Keith cullen has had ongoing lower extremity swelling for several days. Today her outpatient ultrasound confirmed the presence of a DVT involving the femoral vein, popliteal vein, and posterior tibial veins as well as superficial thrombophlebitis of the peroneal vein. Lab work shows suboptimal kidney fun ction, patient only has one kidney. Patient will be admitted and monitored VQ scan to determine the presence of a pulmonary embolism. Patient is started on heparin. [facility]. Vascular is consulted. Patient conveyed verbal understanding and agreed to the plan. I discussed this case with my attending Dr. Trevizo. - Lab Data Result diagrams: 08/08/21 21:58 08/08/21 21:58 Lab Results 08/08/21 08/08/21 08/08/21 Range/Units 21:58 21:58 21:58 WBC 5.3 (3.8-10.6) k/uL RBC 3.82 (3.80-5.40) m/uL Hgb 11.8 (11.4-16.0) gm/dL Hct 37.8 (34.0-46.0) % MCV 99.0 (80.0-100.0) fL MCH 30.9 (25.0-35.0) pg MCHC 31.2 (31.0-37.0) g/dL RDW 16.0 H (11.5-15.5) % Plt Count 301 (150-450) k/uL MPV 7.4 Neutrophils % (Manual) 51 % Lymphocytes % (Manual) 47 % Monocytes % (Manual) 2 % Neutrophils # (Manual) 2.70 (1.3-7.7) k/uL Lymphocytes # (Manual) 2.49 (1.0-4.8) k/uL Monocytes # (Manual) 0.11 (0-1.0) k/uL Nucleated RBCs 0 (0-0) /100 WBC Manual Slide Review Performed Hypochromasia Slight Anisocytosis Slight Macrocytosis Slight PT 9.8 (9.0-12.0) sec INR 0.9 (<1.2) APTT 21.6 L (22.0-30.0) sec Sodium 138 (137-145) mmol/L Potassium 4.6 (3.5-5.1) mmol/L Chloride 102 (98-107) mmol/L Carbon Dioxide 30 (22-30) mmol/L Anion Gap 6 mmol/L BUN 44 H (7-17) mg/dL Creatinine 1.18 H (0.52-1.04) mg/dL Est GFR (CKD-EPI)AfAm 55 (>60 ml/min/1.73 sqM) Est GFR (CKD-EPI)NonAf 47 (>60 ml/min/1.73 sqM) Glucose 157 H (74-99) mg/dL Calcium 8.9 (8.4-10.2) mg/dL Total Bilirubin 0.4 (0.2-1.3) mg/dL AST 31 (14-36) U/L ALT 23 (4-34) U/L Alkaline Phosphatase 68 (38-126) U/L Total Protein 7.2 (6.3-8.2) g/dL Albumin 3.8 (3.5-5.0) g/dL Disposition Clinical Impression: DVT (deep venous thrombosis) Disposition: ADMITTED IP TO THIS [facility] Condition: Fair Time of Disposition: 23:21 Decision to Admit Reason: Admit from EC Decision Date: 08/08/21 Decision Time: 23:21
[2021-08-09] MEDS: SODIUM CHLORIDE 0.9% 1,000 ML IV SCH ×2 (01:46→13:52)
[2021-08-09 04:34] LABS: Anisocytosis Slight; HCT 33.7 % (34.0-46.0); HGB 10.2 gm/dL (11.4-16.0); Hypochromasia Moderate; MCH 30.4 pg (25.0-35.0); MCHC 30.4 g/dL (31.0-37.0); MCV 100.2 fL (80.0-100.0); Macrocytosis Slight; Mean Platelet Volume 7.5; Platelet Count 285 k/uL (150-450); RBC 3.36 m/uL (3.80-5.40); RDW 16.6 % (11.5-15.5); WBC 5.1 k/uL (3.8-10.6)
[2021-08-09 05:16] LABS: Albumin 2.8 g/dL (3.5-5.0); Calcium 8.1 mg/dL (8.4-10.2); Total Bilirubin 0.1 mg/dL (0.2-1.3); Total Protein 5.7 g/dL (6.3-8.2)
[2021-08-09 06:20] LABS: Anisocytosis (M) Present; Eosinophils # (M) 0.05 k/uL (0-0.7); Lymphocytes # (M) 2.81 k/uL (1.0-4.8); Monocytes # (M) 0.26 k/uL (0-1.0); Neutrophils # (M) 1.99 k/uL (1.3-7.7); Neutrophils % (M) 39 %; Nucleated Red Blood Cells 0 /100 WBC (0-0); Total Cells Counted 100
--- NOTE | 2021-08-09 08:08 | XR ---
EXAMINATION TYPE: XR chest 2V DATE OF EXAM: 08/09/2021 COMPARISON: 07/30/[address] 09/22/2019 HISTORY: 70-year-old female with DVT and follow lung scan TECHNIQUE: Frontal and lateral views FINDINGS: Heart normal size. Hyperinflation. Patchy left basilar opacity. Mild interstitial density throughout. There appear to be bullous changes at the right upper lobe. Anterior compression deformity of C7 on the lateral view remains chronic. IMPRESSION: COPD with patchy left basilar opacity seems to correspond to the findings on the CT of 08/06/2021. Ref er to that report for further recommendations. Chronic anterior wedge deformity of T7.
[2021-08-09 08:11] VITALS: BP 115/50; RESP 18; TEMP 97.9
--- NOTE | 2021-08-09 08:19 | NM ---
EXAMINATION TYPE: NM pul perfusion DATE OF EXAM: 08/09/2021 COMPARISON: Radiograph same day HISTORY: 70-year-old female DVT, poor renal function, single kidney, shortness of breath. TECHNIQUE: Following administration of 5.5 mCi Tc 99m MAA. Images obtained post injection. FINDINGS: Large perfusion defect right upper lobe. A few small perfusion defects within the left upper lobe as well. IMPRESSION: Bilateral upper lobe perfusion defects. Unable to exclude intermediate to high probability for pulmon eugenie embolus. The loss of perfusion may relate to chronic bullous emphysema. Consider either empirical treatment vs stabilizing patient's kidney function and performing a PE CT.
[2021-08-09] MEDS ORDERED: IPRATROPIUM-ALBUTEROL 3 ML NEB INHALATION PRN (09:58)
[2021-08-09] MEDS ORDERED: ALBUTEROL NEBULIZED 2.5 MG/3 ML INHALATION PRN (09:58)
[2021-08-09] MEDS ORDERED: ALBUTEROL HFA INHALER INHALATION PRN (09:58)
[2021-08-09] MEDS ORDERED: GABAPENTIN 300 MG CAP PO PRN (09:58)
[2021-08-09] MEDS ORDERED: APIXABAN 5 MG TAB PO SCH (10:00)
[2021-08-09] MEDS ORDERED: PANTOPRAZOLE 40 MG TABLET PO SCH (10:00)
[2021-08-09] MEDS: HEPARIN SOD,PORK IN 0.45% NACL 25,000 UNIT in 0.45% NACL 1 250ML.BAG IV SCH (10:19)
[2021-08-09 11:04] VITALS: PULSE 88
--- NOTE | 2021-08-09 11:09 | P.GSCN ---
History of Present Illness Consult date: 08/09/21 Reason for Consult: Left lower extremity DVT Requesting physician: Erica Deutsch History of present illness: This is a pleasant 70-year-old female who had presented to the emergency department with complaints of left lower extremity discomfort and swelling. States the swelling began about 4 days ago she noticed that her foot became increasingly swollen. She denies any injury that she is aware of. She had a venous duplex of the left lower extremity that was positive for DVT. She was started on a heparin drip. 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 She has had some possible increased shortness of breath so they did do a pulmonary perfusion study that reported bilateral upper lobe perfusion defects. Unable to exclude intermediate to high probability for pulmonary embolus. Loss of perfusion may relate to chronic bullous emphysema. Consider either empirical treatment versus stabilizing patient's kidney function and performing a PE CT. Patient denies that her breathing is any worse at this time. She states that she feels that she is at her baseline. She denies any previous history of DVT or pulmonary embolism. She denies any recent surgery, any history of clotting disorders or family history of clotting disorders. She does admit to leading a sedentary lifestyle and sits most times of the day. Last colonoscopy 2016 with normal findings. Patient is due for repeat screening colonoscopy. Review of Systems A 14 point review systems was completed all pertinent positives and negatives as stated in the HPI. Past Medical History Past Medical History: COPD Additional Past Medical History / Comment(s): STATES ONLY 1 WORKING KIDNEY, HIATAL HERNIA, DIFFICULTY SWALLOWING. History of Any Multi-Drug Resistant Organisms: None Reported Past Surgical History: Hernia Repair, Hysterectomy Additional Past Surgical History / Comment(s): INGUINAL HERNIA. Past Anesthesia/Blood Transfusion Reactions: Postoperative Nausea & Vomiting (PONV) Past Psychological History: No Psychological Hx Reported Smoking Status: Current some day smoker Past Alcohol Use History: Rare Past Drug Use History: None Reported Medications and Allergies Home Medications Medication Instructions Recorded Confirmed Type Mometasone/Formoterol [Dulera 200 2 puff INHALATION RT-BID 05/13/14 08/08/21 Hi story Mcg-5 Mcg Inhaler] Denosumab [Prolia] 60 mg SQ Q180D 04/10/20 08/08/21 History Tiotropium 18 Mcg/Puff [Spiriva] 1 puff INHALATION RT-DAILY 04/10/20 08/08/21 History Albuterol Nebulized [Ventolin 2.5 mg INHALATION RT-QID PRN 07/07/21 08/08/21 History Nebulized] Ipratropium-Albuterol Nebulize 3 ml INHALATION RT-Q4H PRN ml 07/10/21 08/08/21 Rx [Duoneb 0.5 mg-3 mg/3 ml Soln] Ipratropium-Albuterol Nebulize 3 ml INHALATION RT-QID 30 Days 07/10/21 08/08/21 Rx [Duoneb 0.5 mg-3 mg/3 ml Soln] #120 each Pantoprazole [Protonix] 40 mg PO AC-BRKFST 14 Days #14 tab 07/10/21 08/08/21 Rx Gabapentin [Neurontin] 300 mg PO BID PRN 3 Days #6 cap 07/30/21 08/08/21 Rx Albuterol Sulfate [Albuterol 2 puff PO RT-Q6H PRN 08/08/21 08/08/21 History Sulfate Hfa] Apixaban [Eliquis Starter Pack 5 - 10 mg PO DIRECTED 30 Days 08/09/21 Rx (for VTE)] #1 each Allergies Allergy/AdvReac Type Severity Reaction Status Date / Time sulfamethoxazole Allergy Unknown Verified 08/08/21 23:04 [From Bactrim] trimethoprim [From Bactrim] Allergy Unknown Verified 08/08/21 23:04 Surgical - Exam Vital Signs Temp Pulse Resp BP Pulse Ox 98.3 F 82 18 123/61 96 08/08/21 19:01 08/08/21 19:01 08/08/21 19:01 08/08/21 19:01 08/08/21 19:01 General appearance: The patient is alert, oriented, appears in no acute distress. HET: Head is normocephalic and atraumatic. Pupils are equal and reactive. Neck: Supple without lymphadenopathy. Trachea midline. No audible carotid bruit. Heart: S1 S2. Regular rate and rhythm. Lungs: Normal expansion, decreased breath sounds. Abdomen: Soft, nontender, nondistended. Extremities: Normal skin color and turgor. Left lower extremity with +2 pitting edema. Palpable DP and PT pulses. Neurological: No focal deficits. Strength and sensation are grossly intact. Results - Labs 08/09/21 04:13 08/09/21 04:13 Abnormal Lab Results - Last 24 Hours (Table) 08/08/21 08/08/21 08/08/21 Range/Units 21:58 21:58 21:58 RBC (3.80-5.40) m/uL Hgb (11.4-16.0) gm/dL Hct (34.0-46.0) % MCV (80.0-100.0) fL MCHC (31.0-37.0) g/dL RDW 16.0 H (11.5-15.5) % APTT 21.6 L (22.0-30.0) sec BUN 44 H (7-17) mg/dL Creatinine 1.18 H (0.52-1.04) mg/dL Glucose 157 H (74-99) mg/dL Calcium (8.4-10.2) mg/dL Total Bilirubin (0.2-1.3) mg/dL Total Protein (6.3-8.2) g/dL Albumin (3.5-5.0) g/dL 08/09/21 08/09/21 08/09/21 Range/Units 04:13 04:13 04:13 RBC 3.36 L (3.80-5.40) m/uL Hgb 10.2 L (11.4-16.0) gm/dL Hct 33.7 L (34.0-46.0) % MCV 100.2 H (80.0-100.0) fL MCHC 30.4 L (31.0-37.0) g/dL RDW 16.6 H (11.5-15.5) % APTT 107.7 H* (22.0-30.0) sec BUN 44 H (7-17) mg/dL Creatinine 1.29 H (0.52-1.04) mg/dL Glucose 123 H (74-99) mg/dL Calcium 8.1 L (8.4-10.2) mg/dL Total Bilirubin 0.1 L (0.2-1.3) mg/dL Total Protein 5.7 L (6.3-8.2) g/dL Albumin 2.8 L (3.5-5.0) g/dL Diabetes panel 08/08/21 08/09/21 Range/Units 21:58 04:13 Sodium 138 138 (137-145) mmol/L Potassium 4.6 4.0 (3.5-5.1) mmol/L Chloride 102 107 (98-107) mmol/L Carbon Dioxide 30 28 (22-30) mmol/L BUN 44 H 44 H (7-17) mg/dL Creatinine 1.18 H 1.29 H (0.52-1.04) mg/dL Glucose 157 H 123 H (74-99) mg/dL Calcium 8.9 8.1 L (8.4-10.2) mg/dL AST 31 33 (14-36) U/L ALT 23 19 (4-34) U/L Alkaline Phosphatase 68 62 (38-126) U/L Total Protein 7.2 5.7 L (6.3-8.2) g/dL Albumin 3.8 2.8 L (3.5-5.0) g/dL Calcium panel 08/08/21 08/09/21 Range/Units 21:58 04:13 Calcium 8.9 8.1 L (8.4-10.2) mg/dL Albumin 3.8 2.8 L (3.5-5.0) g/dL Pituitary panel 08/08/21 08/09/21 Range/Units 21:58 04:13 Sodium 138 138 (137-145) mmol/L Potassium 4.6 4.0 (3.5-5.1) mmol/L Chloride 102 107 (98-107) mmol/L Carbon Dioxide 30 28 (22-30) mmol/L BUN 44 H 44 H (7-17) mg/dL Creatinine 1.18 H 1.29 H (0.52-1.04) mg/dL Glucose 157 H 123 H (74-99) mg/dL Calcium 8.9 8.1 L (8.4-10.2) mg/dL Adrenal panel 08/08/21 08/09/21 Range/Units 21:58 04:13 Sodium 138 138 (137-145) mmol/L Potassium 4.6 4.0 (3.5-5.1) mmol/L Chloride 102 107 (98-107) mmol/L Carbon Dioxide 30 28 (22-30) mmol/L BUN 44 H 44 H (7-17) mg/dL Creatinine 1.18 H 1.29 H (0.52-1.04) mg/dL Glucose 157 H 123 H (74-99) mg/dL Calcium 8.9 8.1 L (8.4-10.2) mg/dL Total Bilirubin 0.4 0.1 L (0.2-1.3) mg/dL AST 31 33 (14-36) U/L ALT 23 19 (4-34) U/L Alkaline Phosphatase 68 62 (38-126) U/L Total Protein 7.2 5.7 L (6.3-8.2) g/dL Albumin 3.8 2.8 L (3.5-5.0) g/dL - Imaging Comments: pulmonary perfusion study that reported bilateral upper lobe perfusion defects. Unable to exclude intermediate to high probability for pulmonary embolus. Loss of perfusion may relate to chronic bullous emphysema. Consider either empirical treatment versus stabilizing patient's kidney function and performing a PE CT. Venous duplex bilateral lower extremities. Right leg negative for DVT. Left leg shows evidence of thrombus within the proximal, mid and distal femoral vein, popliteal vein, PT V's and peroneal veins Assessment and Plan Assessment: 1. Left lower extremity deep vein thrombosis 2. Bilateral upper lobe perfusion defects unable to exclude intra-or mediate to high probability for pulmonary embolus. Loss of perfusion may relate to chronic bullous emphysema as seen on pulmonary perfusion study 3. History of COPD oxygen dependent Plan: 1. May transition to oral anticoagulation such as Eliquis and stop heparin 2. Thigh-high LENNIE hose to left lower extremity 3. Elevate left lower extremity 4. No indication for any vascular surgical intervention Thank you for this consultation, patient is cleared from vascular surgery for discharge The impression and plan of care has been dictated as directed. Dr. Santos I performed a history and examination of this patient, discussed the same with the dictator. I agree with the dictator's note ,documented as a scribe. Any additional findings or plans will be noted.
[2021-08-09] MEDS ORDERED: IPRATROPIUM-ALBUTEROL 3 ML NEB INHALATION SCH (12:00)
--- NOTE | 2021-08-09 15:38 | P.HPIM ---
History of Present Illness H&P Date: 08/09/21 This is a pleasant 70-year-old female who was recently admitted for left lower extremity swelling extending from her foot all the way up her calf. Patient reports to having left lower extremity swelling over the last few days and had an outpatient Doppler done which confirmed left lower extremity DVT. Patient recently traveled out of [facility] to [place] in the car for a cousin graduation and also admits to living a sedentary lifestyle. Patient reports to smoking and approximately 2 weeks ago has quit and was down to 5-10 cigarettes per day. Patient is chronically maintained on 3 L of oxygen for COPD and does continue with inhalers and breathing inhalational treatments. Patient has a past medical history of COPD and one working kidney. Venous Doppler showed the DVT involving the femoral vein, popliteal vein and posterior tibial veins as well as superficial thrombophlebitis. Patient had some mild elevated creatinine unable to undergo CTA and underwent VQ scan which showed bilateral upper lobe perfusion defects unable to exclude intermediate to high probability for pulmonary embolus and the loss of perfusion may also be related to chronic bullous emphysema to consider empirical treatment or stabilizing the kidney functions and later getting a CT. Patient has history of one functioning kidney and vascular surgery was consulted. Recommend LENNIE hose and elevating lower e xtremity and patient was initiated on IV heparin. No plans for surgical intervention and will have patient follow-up with vascular surgery in the outpatient setting and will initiate the patient on Eliquis 10 mg twice daily for the next week and titrate down to 5 mg twice daily thereafter. Verification cover which verified by insurance and patient agreeable to pay for the anticoagulant. Labs: WBC was 5.1, hemoglobin was 10.2, platelets are 285, sodium was 138, potassium 4.0, creatinine 1.29, BUN 44 Review Of Systems: Constitutional: No fever, no chills, no night sweats. No weight change. No weakness, fatigue or lethargy. No daytime sleepiness. EENT: No headache. No blurred vision or double vision, no loss of vision. No loss of Hearing, no ringing in the ears, no dizziness. No nasal drainage or congestion. No epistaxis. No sore throat. Lungs: No shortness of breath, cough, no sputum production. No wheezing. Cardiovascular: No chest pain, no lower extremity edema. No palpitations. No paroxysmal nocturnal dyspnea. No orthopnea. No lightheadedness or dizziness. No syncopal episodes. Abdominal: No abdominal pain. No nausea, vomiting. No diarrhea. No constipation. No bloody or tarry stools.. No loss of appetite. Genitourinary: No dysuria, increased frequency, urgency. No urinary retention. Musculoskeletal: No myalgias. No muscle weakness, no gait dysfunction, no frequent falls. No back pain. No neck pain. reports left lower extremity swelling and increasing pain Integumentary: No wounds, no lesions. No rash or pruritus. No unusual bruising. No change in hair or nails. Neurologic: No aphasia. No facial droop. No change in mentation. No head injury. No headache. No paralysis. No paresthesia. Psychiatric: No depression. No anxiety. No mood swings. Endocrine: No abnormal blood sugars. No weight change. No excessive sweating or thirst. No cold intolerance. PHYSICAL EXAMINATION: GENERAL: The patient is alert and oriented x4, Well developed, well nourished. ill appearing HEENT: Pupils are round and equally reacting to light. EOMI. no scleral icterus. No conjunctival pallor. Normocephalic, atraumatic. No pharyngeal erythema. No th yromegaly. CARDIOVASCULAR: S1 and S2 muffled PULMONARY: diminished breath sounds bilaterally with no wheezingand some scattered rhonchi noted. ABDOMEN: soft. Nontender on exam. non-distended, normoactive bowel sounds. No palpable organomegaly. MUSCULOSKELETAL: No joint swelling or deformity. EXTREMITIES: No cyanosis, clubbing, left pedal edema. Left lower extremity and foot with swelling and no surrounding redness noted NEUROLOGICAL: Gross neurological examination did not reveal any focal deficits. Diffuse weakness SKIN: No rashes. 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, patient reports to being worked up with her primary care provider about lung findings on previous scans Bilateral upper lobe perfusion defects unable to exclude intra-or mediate to high probability for pulmonary embolus on VQ scan and loss of perfusion may relate to chronic bullous emphysema continued ongoing nicotine dependence,, reports to recently attempting to quit approximately 2 weeks ago Recent traveling to [place] driving over 10 hours 2 weeks prior Sedentary lifestyle GI prophylaxis DVT prophylaxis Full code Plan: Recommend to continue with current medicatioverified coverage of anticoagulant and patient was on IV heparin and being transitioned to Eliquis. patient has history of one kidney and discussed with nephrology and obed to start 10 mg twice daily and titrate down to 5 mg twice daily and will follow-up closely with primary care provider along with vascular surgery in the outpatient setting. Strongly encouraged the patient to continue attempting to quit tobacco use as patient reports he recently quitting as of 2 weeks ago. Encourage the patient to continue using compression stockings and elevating the lower extremity while at rest. This was discussed with vascular surgery and patient will be discharged today. The impression and plan of care has been dictated by Carmen Yeboah, nurse practitioner as directed. Dr. Roni MD I have performed a history and examination and MDM of this patient, discussed the same with the dictator, and agree with the dictator's assessment and plan as written ,documented as a scribe. Based on total visit time, I have performed more than 50% of the visit. Any additional findings or plans will be noted. Past Medical History Past Medical History: COPD Additional Past Medical History / Comment(s): STATES ONLY 1 WORKING KIDNEY, HIATAL HERNIA, DIFFICULTY SWALLOWING. History of Any Multi-Drug Resistant Organisms: None Reported Past Surgical History: Hernia Repair, Hysterectomy Additional Past Surgical History / Comment(s): INGUINAL HERNIA. Past Anesthesia/Blood Transfusion Reactions: Postoperative Nausea & Vomiting (PONV) Past Psychological History: No Psychological Hx Reported Smoking Status: Current some day smoker Past Alcohol Use History: Rare Past Drug Use History: None Reported Medications and Allergies Home Medications Medication Instructions Recorded Confirmed Type Mometasone/Formoterol [Dulera 200 2 puff INHALATION RT-BID 05/13/14 08/08/21 History Mcg-5 Mcg Inhaler] Denosumab [Prolia] 60 mg SQ Q180D 04/10/20 08/08/21 History Tiotropium 18 Mcg/Puff [Spiriva] 1 puff INHALATION RT-DAILY 04/10/20 08/08/21 History Albuterol Nebulized [Ventolin 2.5 mg INHALATION RT-QID PRN 07/07/21 08/08/21 History Nebulized] Ipratropium-Albuterol Nebulize 3 ml INHALATION RT-Q4H PRN ml 07/10/21 08/08/21 Rx [Duoneb 0.5 mg-3 mg/3 ml Soln] Ipratropium-Albuterol Nebulize 3 ml INHALATION RT-QID 30 Days 07/10/21 08/08/21 Rx [Duoneb 0.5 mg-3 mg/3 ml Soln] #120 each Pantoprazole [Protonix] 40 mg PO AC-BRKFST 14 Days #14 tab 07/10/21 08/08/21 Rx Gabapentin [Neurontin] 300 mg PO BID PRN 3 Days #6 cap 07/30/21 08/08/21 Rx Albuterol Sulfate [Albuterol 2 puff PO RT-Q6H PRN 08/08/21 08/08/21 History Sulfate Hfa] Acetaminophen Tab [Tylenol] 650 mg PO Q6HR PRN tab 08/09/21 Rx Apixaban [Eliquis Starter Pack 5 - 10 mg PO DIRECTED 30 Days 08/09/21 Rx (for VTE)] #1 each Allergies Allergy/AdvReac Type Severity Reaction Status Date / Time sulfamethoxazole Allergy Unknown Verified 08/08/21 23:04 [From Bactrim] trimethoprim [From Bactrim] Allergy Unknown Verified 08/08/21 23:04 Physical Exam Vitals: Vital Signs Temp Pulse Pulse Resp BP BP Pulse Ox 08/09/21 08:09 97.9 F 80 18 115/50 94 L 08/09/21 03:28 98.3 F 76 16 121/60 94 L 08/08/21 22:16 84 18 124/76 97 08/08/21 19:01 98.3 F 82 18 123/61 96 Intake and Output 08/08/21 08/09/21 08/09/21 22:59 06:59 14:59 Intake Total 68.777 Output Total 0 Balance 68.777 Intake: Intake, IV Titration 68.777 Amount Heparin Sod,Pork in 0.45% 68.777 NaCl 25,000 unit In 0.45 % NaCl 1 250ml.bag @ 18 UNITS/KG/HR 11.431 mls/hr IV .[id number] [facility] Rx#: [id number] Output: Emesis 0 Other: Weight 63.503 kg 63.503 kg Results CBC & Chem 7: 08/09/21 04:13 08/09/21 04:13 Labs: Abnormal Lab Results - Last 24 Hours (Table) 08/08/21 08/08/21 08/08/21 Range/Units 21:58 21:58 21:58 RBC (3.80-5.40) m/uL Hgb (11.4-16.0) gm/dL Hct (34.0-46.0) % MCV (80.0-100.0) fL MCHC (31.0-37.0) g/dL RDW 16.0 H (11.5-15.5) % APTT 21.6 L (22.0-30.0) sec BUN 44 H (7-17) mg/dL Creatinine 1.18 H (0.52-1.04) mg/dL Glucose 157 H (74-99) mg/dL Calcium (8.4-10.2) mg/dL Total Bilirubin (0.2-1.3) mg/dL Total Protein (6.3-8.2) g/dL Albumin (3.5-5.0) g/dL 08/09/21 08/09/21 08/09/21 Range/Units 04:13 04:13 04:13 RBC 3.36 L (3.80-5.40) m/uL Hgb 10.2 L (11.4-16.0) gm/dL Hct 33.7 L (34.0-46.0) % MCV 100.2 H (80.0-100.0) fL MCHC 30.4 L (31.0-37.0) g/dL RDW 16.6 H (11.5-15.5) % APTT 107.7 H* (22.0-30.0) sec BUN 44 H (7-17) mg/dL Creatinine 1.29 H (0.52-1.04) mg/dL Glucose 123 H (74-99) mg/dL Calcium 8.1 L (8.4-10.2) mg/dL Total Bilirubin 0.1 L (0.2-1.3) mg/dL Total Protein 5.7 L (6.3-8.2) g/dL Albumin 2.8 L (3.5-5.0) g/dL Thrombosis Risk Factor Assmnt - Choose All That Apply Any of the Below Risk Factors Present?: Yes Each Factor Represents 1 point: Swollen legs (current) Other Risk Factors: Yes Each Risk Factor Represents 2 Points: Age 61-74 years Thrombosis Risk Factor Assessment Total Risk Factor Score: 3 Thrombosis Risk Factor Assessment Level: Moderate Risk
[2021-08-09] MEDS ORDERED: SYMBICORT 160-4.5 MCG INHALER INHALATION SCH (20:00)
[2021-08-10] MEDS ORDERED: NON FORMULARY DRUG (Tiotropium 18 Mcg/Puff 1 PUFF Inhaler) INHALATION SCH (08:00)
--- NOTE | 2021-08-10 10:02 | P.DS ---
Providers Date of admission: 08/08/21 22:53 Expected date of discharge: 08/09/21 Attending physician: Erica Deutsch Consults: 08/08/21 22:58 Consult Physician Urgent Consulting Provider: Mame Santos Reason/Comments: DVT Do you want consulting provider notified?: Yes Primary care physician: Carolyn Grey [facility] 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, patient reports to being worked up with her primary care provider about lung findings on previous scans, continue out patient follow-up Bilateral upper lobe perfusion defects unable to exclude intra-or mediate to high probability for pulmonary embolus on VQ scan and loss of perfusion may relate to chronic bullous emphysema continued ongoing nicotine dependence,, reports to recently attempting to quit approximately 2 weeks ago Recent traveling to [place] driving over 10 hours 2 weeks prior Sedentary lifestyle GI prophylaxis DVT prophylaxis Full code Discharge disposition Patient is being discharged in a stable condition with guarded prognosis to home. Patient will follow-up with Dr. Grey in the outpatient setting upon discharge. Patient is to continue with eliquis 10 mg twice daily for 1 week and then titrate down to 5 mg twice daily thereafter. Common follow-up with vascular surgery in the outpatient setting in the next 1-2 weeks. Total time taken is greater than 35 minutes. Hospital course This is a 70-year-old female who was recently admitted with left lower extremity swelling and edema that have been ongoing over the last few days and progressively getting worse and had an outpatient Doppler done which showed positive DVT and patient was initiated on heparin here and evaluated by vascular surgery and transitioned oral anticoagulant and will continue at 10 mg twice daily and then titrate Eliquis down to 5 mg twice daily thereafter. Recommend close outpatient follow-up with vascular surgery Dr. Santos. Patient also to continue following up in the outpatient setting with primary care provider about the noted findings on x-rays and CT scans. Patient reported she has been ongoing and a workup for possible lung cancer but has not completed the workup. Patient is oxygen dependent on 3 L and has recently quit smoking approximately 2 weeks ago. Encouraged continue smoking cessation and to continue elevating lower extremities while at rest and use compression stockings to the left lower extremity. VQ scan was unable to rule out PE but kidney functions were elevated and patient is a single kidney and so will start anticoagulant and recommend close outpatient follow-up in the outpatient setting with primary care provider and other consultations. She reports to feeling well and would like to go home. Currently no reports of chest pain, shortness of breath, or palpitations. Patient is afebrile. No reports of nausea or vomiting and patient is tolerating diet. Patient will be discharged home today Physical exam: Gen: This is a 70-year-old female awake, alert and oriented 3, thin built, ill- appearing HEENT: Head is atraumatic, normocephalic. Pupils equal, round. Sclerae is anicteric. NECK: Supple. No JVD. No lymphadenopathy. No thyromegaly. LUNGS: The manage breath sounds bilaterally with scattered rhonchi noted No intercostal retractions. HEART: Regular rate and rhythm. No murmur. ABDOMEN: Soft. Bowel sounds are present. No masses. No tenderness. EXTREMITIES: Left lower extremity and left pedal edema. No surrounding redness given breaks or evidence of cellulitis, No calf tenderness. NEUROLOGICAL: Patient is awake, alert and oriented x3. Cranial nerves 2 through 12 are grossly intact. Please refer to medication reconciliation sheet for a list of medications. The impression and plan of care has been dictated by Carmen Yeboah, Nurse Practitioner as directed. Dr. Roni MD I have performed a history and examination and MDM of this patient, discussed the same with the dictator, and agree with the dictator's assessment and plan as written ,documented as a scribe. Based on total visit time, I have performed more than 50% of the visit. Patient Condition at Discharge: Fair Plan - Discharge Summary New Discharge Prescriptions: New Apixaban [Eliquis Starter Pack (for VTE)] 5 - 10 mg PO DIRECTED 30 Days #1 each Acetaminophen Tab [Tylenol] 650 mg PO Q6HR PRN tab PRN Reason: Mild Pain Or Fever > 100.5 Continue Mometasone/Formoterol [Dulera 200 Mcg-5 Mcg Inhaler] 2 puff INHALATION RT-BID Tiotropium 18 Mcg/Puff [Spiriva] 1 puff INHALATION RT-DAILY Denosumab [Prolia] 60 mg SQ Q180D Pantoprazole [Protonix] 40 mg PO AC-BRKFST 14 Days #14 tab Gabapentin [Neurontin] 300 mg PO BID PRN 3 Days #6 cap PRN Reason: Pain Albuterol Nebulized [Ventolin Nebulized] 2.5 mg INHALATION RT-QID PRN PRN Reason: Shortness Of Breath Ipratropium-Albuterol Nebulize [Duoneb 0.5 mg-3 mg/3 ml Soln] 3 ml INHALATION RT-QID 30 Days #120 each Ipratropium-Albuterol Nebulize [Duoneb 0.5 mg-3 mg/3 ml Soln] 3 ml INHALATION RT-Q4H PRN ml PRN Reason: Shortness Of Breath Or Wheezing Albuterol Sulfate [Albuterol Sulfate Hfa] 2 puff PO RT-Q6H PRN PRN Reason: Shortness Of Breath Discharge Medication List Mometasone/Formoterol [Dulera 200 Mcg-5 Mcg Inhaler] 2 puff INHALATION RT-BID 05/13/14 [History] Denosumab [Prolia] 60 mg SQ Q180D 04/10/20 [History] Tiotropium 18 Mcg/Puff [Spiriva] 1 puff INHALATION RT-DAILY 04/10/20 [History] Albuterol Nebulized [Ventolin Nebulized] 2.5 mg INHALATION RT-QID PRN 07/07/21 [History] Ipratropium-Albuterol Nebulize [Duoneb 0.5 mg-3 mg/3 ml Soln] 3 ml INHALATION RT-Q4H PRN ml 07/10/21 [Rx] Ipratropium-Albuterol Nebulize [Duoneb 0.5 mg-3 mg/3 ml Soln] 3 ml INHALATION RT-QID 30 Days #120 each 07/10/21 [Rx] Pantoprazole [Protonix] 40 mg PO AC-BRKFST 14 Days #14 tab 07/10/21 [Rx] Gabapentin [Neurontin] 300 mg PO BID PRN 3 Days #6 cap 07/30/21 [Rx] Albuterol Sulfate [Albuterol Sulfate Hfa] 2 puff PO RT-Q6H PRN 08/08/21 [History] Acetaminophen Tab [Tylenol] 650 mg PO Q6HR PRN tab 08/09/21 [Rx] Apixaban [Eliquis Starter Pack (for VTE)] 5 - 10 mg PO DIRECTED 30 Days #1 each 08/09/21 [Rx] Follow up Appointment(s)/Referral(s): Mame Santos DO [STAFF PHYSICIAN] - 08/22/21 8:45 am Carolyn Grey DO [Primary Care Provider] - 1-2 days Ambulatory/Diagnostic Orders: Complete Blood Count w/diff [LAB.AMB] Time Frame: 3 Days, Location: None Selected Activity/Diet/Wound Care/Special Instructions: Activity Limited until follow-up Follow-up with primary care provider on discharge Continue taking medications as prescribed Continue taking Eliquis 10 mg twice daily for the next 1 week and then titrate down to 5 mg daily thereafter Recommend repeat labs in 2-3 days to monitor kidney functions Continue using compression stockings and elevate lower extremities while at rest Continue to avoid tobacco use and exposure Follow-up with vascular surgery in the outpatient setting in the next 2 weeks Discharge Disposition: HOME SELF-CARE
== END 2021-08-09 14:20 | disposition home or self-care (01) ==
LOC: EC 18:55 → 6NMEDSUR 22:53
PROVIDERS: ADMIT Hospitalist; ATTEND Hospitalist
DX: I82.412 Acute embolism and thrombosis of left femoral vein (principal); I82.432 Acute embolism and thrombosis of left popliteal vein; I82.442 Acute embolism and thrombosis of left tibial vein; J96.11 Chronic respiratory failure with hypoxia; J43.9 Emphysema, unspecified; N18.9 Chronic kidney disease, unspecified; K44.9 Diaphragmatic hernia without obstruction or gangrene; R13.10 Dysphagia, unspecified; Z99.81 Dependence on supplemental oxygen; F17.210 Nicotine dependence, cigarettes, uncomplicated; Z79.51 Long term (current) use of inhaled steroids; Z79.899 Other long term (current) drug therapy; Z88.1 Allergy status to other antibiotic agents; Z88.2 Allergy status to sulfonamides; Z90.710 Acquired absence of both cervix and uterus; Z98.890 Other specified postprocedural states; Z71.6 Tobacco abuse counseling
CPT/HCPCS: 96366; 96376; 96365; 99285; 36415; 94640 ×2; 80053 ×2; 85025 ×2; 85610; 85730 ×2; 71046; 93970; 78580; G0378 ×2; A9540; J1644 ×2

== ENCOUNTER 2021-09-13 10:22 | Inpatient (IN) | payer MEDICARE ==
[2021-09-13] MEDS ORDERED: SODIUM CHLORIDE 0.9% 1,000 ML IV STA ×2 (10:45→13:25)
[2021-09-13] MEDS ORDERED: IPRATROPIUM-ALBUTEROL 3 ML NEB INHALATION STA ×3 (10:45→11:42)
[2021-09-13] MEDS ORDERED: methylPREDNISolone SOD SUCCI 125 MG/2 ML VIAL IV STA (10:45)
[2021-09-13 11:11] LABS: Anisocytosis Slight; HCT 36.1 % (34.0-46.0); Hypochromasia Marked; MCH 32.3 pg (25.0-35.0); MCHC 30.4 g/dL (31.0-37.0); Macrocytosis Marked; Mean Platelet Volume 7.9; RDW 17.7 % (11.5-15.5); WBC 4.5 k/uL (3.8-10.6)
[2021-09-13 11:21] LABS: Partial Thromboplastin Time 25.9 sec (22.0-30.0); Prothrombin Time 10.9 sec (9.0-12.0)
[2021-09-13 11:22] LABS: Albumin 3.3 g/dL (3.5-5.0); Calcium 8.6 mg/dL (8.4-10.2); Magnesium 1.8 mg/dL (1.6-2.3); Total Bilirubin 0.6 mg/dL (0.2-1.3); Total Protein 7.5 g/dL (6.3-8.2)
[2021-09-13 11:25] LABS: Platelet Count 470 k/uL (150-450)
[2021-09-13 11:31] LABS: Potassium 5.2 mmol/L (3.5-5.1)
--- NOTE | 2021-09-13 11:40 | XR ---
EXAMINATION TYPE: XR chest 1V DATE OF EXAM: 09/13/2021 11:31 AM COMPARISON: Chest radiographs from 08/09/2021 and others more remote. TECHNIQUE: XR chest 1V Frontal view of the chest. CLINICAL INDICATION:Female, 70 years old with history of difficulty breathing; FINDINGS: Lungs/Pleura: There is persistent basilar hazy opacities which appear more dense and could be partial ly due to technique. These are more dense from priors on 04/10/2020. There is flattening of the diaphr agm with increased lucency of the lungs. No evidence of pneumothorax, pleural effusion or focal conso lidation. Pulmonary vascularity: Unremarkable. Heart/mediastinum: Cardiomediastinal silhouette is partially obscured due to overlying and adjacent o pacities. Musculoskeletal: No acute osseous pathology. IMPRESSION: 1. Persistent bibasilar opacities which are not significantly changed from recent priors but new from remote priors from 04/10/2020. Correlate for pneumonia and/or aspiration. 2. COPD changes.
[2021-09-13] MEDS ORDERED: cefTRIAXone IN SWFI 1,000 MG/10 ML SYRINGE IVP STA (11:46)
[2021-09-13] MEDS ORDERED: ALBUTEROL NEBULIZED 2.5 MG/3 ML INHALATION STA (11:51)
[2021-09-13 12:03] LABS: Eosinophils # (M) 0.14 k/uL (0-0.7); Lymphocytes # (M) 0.72 k/uL (1.0-4.8); Monocytes # (M) 0.23 k/uL (0-1.0); Neutrophils # (M) 3.42 k/uL (1.3-7.7); Neutrophils % (M) 76 %; Nucleated Red Blood Cells 0 /100 WBC (0-0); Total Cells Counted 100
[2021-09-13] MEDS ORDERED: NALOXONE 0.4 MG/ML 1 ML VIAL IV PRN (12:27)
[2021-09-13] MEDS ORDERED: ASPIRIN 81 MG PO STA (12:37)
--- NOTE | 2021-09-13 12:41 | ED ---
General Adult HPI - General Chief complaint: Shortness of Breath Stated complaint: JANICE, weakness Time Seen by Provider: 09/13/21 10:38 Source: patient, family, RN notes reviewed, old records reviewed Mode of arrival: wheelchair Limitations: no limitations - History of Present Illness Initial comments: Patient is a 70-year-old female with past medical history remarkable for COPD on 4 L nasal cannula at home, recently diagnosed DVT currently on [place] compliant with therapy, presents emergency department after being sent by PCP over concern for low oxygen saturations. Patient states she has been having worsening shortness breath for multiple days. Endorses rhinorrhea. Denies cough. Denies emesis. Denies abdominal pain, nausea, vomiting. Denies any chest pain. States she is compliant with her anticoagulation. Uncertain what is causing her current symptoms. States that her breathing treatments at home were not improving her symptoms. - Related Data Home Medications Medication Instructions Recorded Confirmed Mometasone/Formoterol [Dulera 200 2 puff INHALATION RT-BID 05/13/14 09/13/21 Mcg-5 Mcg Inhaler] Denosumab [Prolia] 60 mg SQ Q180D 04/10/20 09/13/21 Tiotropium 18 Mcg/Puff [Spiriva] 1 puff INHALATION RT-DAILY 04/10/20 09/13/21 Albuterol Nebulized [Ventolin 2.5 mg INHALATION RT-QID PRN 07/07/21 09/13/21 Nebulized] Albuterol Sulfate [Albuterol 2 puff PO RT-Q6H PRN 08/08/21 09/13/21 Sulfate Hfa] Apixaban [Eliquis] 5 mg PO BID 09/13/21 09/13/21 Omeprazole 20 mg PO DAILY 09/13/21 09/13/21 Previous Rx's Medication Instructions Recorded Ipratropium-Albuterol Nebulize 3 ml INHALATION RT-Q4H PRN ml 07/10/21 [Duoneb 0.5 mg-3 mg/3 ml Soln] Ipratropium-Albuterol Nebulize 3 ml INHALATION RT-QID 30 Days 07/10/21 [Duoneb 0.5 mg-3 mg/3 ml Soln] #120 each Pantoprazole [Protonix] 40 mg PO AC-BRKFST 14 Days #14 tab 07/10/21 Acetaminophen Tab [Tylenol] 650 mg PO Q6HR PRN tab 08/09/21 Allergies Allergy/AdvReac Type Severity Reaction Status Date / Time sulfamethoxazole Allergy Unknown Verified 09/13/21 11:53 [From Bactrim] trimethoprim [From Bactrim] Allergy Unknown Verified 09/13/21 11:53 Review of Systems ROS Statement: Those systems with pertinent positive or pertinent negative responses have been documented in the HPI. Review of Systems: CONST: Denies fever EYES: Denies blurry vision ENT: Denies nasal congestion C/V: Denies Chest pain RESP: Endorses Shortness of breath GI: Denies abdominal pain : Denies dysuria SKIN: Denies rash. MSK: Denies joint pain. NEURO: Denies headache ROS Other: All systems not noted in ROS Statement are negative. Past Medical History Past Medical History: COPD Additional Past Medical History / Comment(s): STATES ONLY 1 WORKING KIDNEY, HIATAL HERNIA, DIFFICULTY SWALLOWING. History of Any Multi-Drug Resistant Organisms: None Reported Past Surgical History: Hernia Repair, Hysterectomy Additional Past Surgical History / Comment(s): INGUINAL HERNIA. Past Anesthesia/Blood Transfusion Reactions: Postoperative Nausea & Vomiting (PONV) Past Psychological History: No Psychological Hx Reported Smoking Status: Current some day smoker Past Alcohol Use History: Rare Past Drug Use History: None Reported - Past Family History Father Family Medical History: Cancer Additional Family Medical History / Comment(s): Lung cancer. General Exam - General Exam Comments Initial Comments: General: Appears in respiratory distress, tachypnea, hypoxic HEAD: Normal with no signs of head trauma. EYES: PERRLA, EOMI, conjunctiva normal, no discharge. Pupils are 3 mm and equal bilaterally. ENT: Hearing grossly intact, normal oropharynx. RESPIRATORY: Diminished breath sounds bilaterally with end expiratory wheezing. No obvious rhonchi. Hypoxic on room air. Increased work of breathing. C/V: Tachycardic with a regular rhythm. S1 and S2 auscultated. Peripheral pulses 2+ and intact throughout. ABD: Abd is soft, nontender, nondistended EXT: Normal range of motion, no obvious deformity SKIN: No rashes or lesions observed on exposed skin. NEURO: Alert and oriented x 4. Cranial nerves II-XII intact. No focal sensory or strength deficits. Limitations: no limitations Course Vital Signs 09/13/21 09/13/2109/13/22 10:27 10:43 10:52 Temperature 98 F Pulse Rate 133 H 124 H Respiratory 20 Rate Blood Pressure 106/89 O2 Sat by Pulse 65 L 91 L Oximetry Fraction of 50 Inspired Oxygen (FIO2) 09/13/21 09/13/21 09/13/21 10:55 11:17 12:01 Temperature Pulse Rate 122 H 125 H 99 Respiratory 40 H 38 H 35 H Rate Blood Pressure O2 Sat by Pulse Oximetry Fraction of Inspired Oxygen (FIO2) 09/13/21 09/13/21 12:12 14:12 Temperature 98.0 F Pulse Rate 101 H 91 Respiratory 31 H 20 Rate Blood Pressure 105/65 O2 Sat by Pulse 98 Oximetry Fraction of Inspired Oxygen (FIO2) Procedures - Reading Protocol (Time Out) Nurse: Misty Hess Medical Decision Making - Medical Decision Making Based on the patient's presentation and physical exam, I'm concerned for acute hypoxic respiratory failure likely secondary to COPD exacerbation. Patient was hypoxic on room air to 65-70%. This improved on 4 L nasal cannula to high 80%'s. Patient will be medially started on BiPAP to her lung exam. She was in agreement this plan. Infectious as well as cardiopulmonary labs will be obtained. She was in agreement this plan. EKG shows no signs of acute ischemia. Laboratory studies are remarkable for a macrocytic anemia with a hemoglobin of 11.0 whichIs chronic for the patient. Patient has a hemolyzed potassium of 5.2, repeat will be ordered. AST and ALT are mildly elevated. Patient is an elevated troponin of 0.103 which is likely secondary to the hypoxia that she experienced. Covid influenza negative. Chest x-ray revealed findings concerning for bilateral lower lobe pneumonia which may or may not be chronic. I discussed the findings with the patient as well as the patient's family. She remains on BiPAP at this time and work of breathing is improved. Hypoxia is resolved. Vital signs otherwise remained within normal limits. Would like to admit her to the hospital for further COPD management. Lungs are improving in terms of air movement. We'll continue breathing treatments as well as IV steroids. She will receive Rocephin as well as doxycycline to cover for possible pneumonia. Blood cultures were obtained and sent. Patient was in agreement with this plan. 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 Lemus was consulted. I spoke with the admitting team, Dr. Zee who is in agreement this plan. Patient's vital signs are improved at this time, work of breathing is improved to 20 breaths per minute. Oxygen saturation is also in the high 90%'s. Remainder of the vital signs are within normal limits. She'll be admitted to a telemetry bed. - Lab Data Result diagrams: 09/13/21 10:49 09/13/21 10:49 Lab Results 09/13/21 09/13/21 09/13/21 Range/Units 10:49 10:49 10:49 WBC 4.5 (3.8-10.6) k/uL RBC 3.40 L (3.80-5.40) m/uL Hgb 11.0 L (11.4-16.0) gm/dL Hct 36.1 (34.0-46.0) % MCV 106.0 H (80.0-100.0) fL MCH 32.3 (25.0-35.0) pg MCHC 30.4 L (31.0-37.0) g/dL RDW 17.7 H (11.5-15.5) % Plt Count 470 H D (150-450) k/uL MPV 7.9 Neutrophils % (Manual) 76 % Lymphocytes % (Manual) 16 % Monocytes % (Manual) 5 % Eosinophils % (Manual) 3 % Neutrophils # (Manual) 3.42 (1.3-7.7) k/uL Lymphocytes # (Manual) 0.72 L (1.0-4.8) k/uL Monocytes # (Manual) 0.23 (0-1.0) k/uL Eosinophils # (Manual) 0.14 (0-0.7) k/uL Nucleated RBCs 0 (0-0) /100 WBC Manual Slide Review Performed Hypochromasia Marked Anisocytosis Slight Macrocytosis Marked A PT 10.9 (9.0-12.0) sec INR 1.0 (<1.2) APTT 25.9 (22.0-30.0) sec Sodium 138 (137-145) mmol/L Potassium 5.2 H (3.5-5.1) mmol/L Chloride 102 (98-107) mmol/L Carbon Dioxide 29 (22-30) mmol/L Anion Gap 7 mmol/L BUN 36 H (7-17) mg/dL Creatinine 1.39 H (0.52-1.04) mg/dL Est GFR (CKD-EPI)AfAm 45 (>60 ml/min/1.73 sqM) Est GFR (CKD-EPI)NonAf 39 (>60 ml/min/1.73 sqM) Glucose 181 H (74-99) mg/dL Plasma Lactic Acid Javier (0.7-2.0) mmol/L Calcium 8.6 (8.4-10.2) mg/dL Magnesium 1.8 (1.6-2.3) mg/dL Total Bilirubin 0.6 (0.2-1.3) mg/dL AST 70 H (14-36) U/L ALT 45 H (4-34) U/L Alkaline Phosphatase 73 (38-126) U/L Troponin I (0.000-0.034) ng/mL Total Protein 7.5 (6.3-8.2) g/dL Albumin 3.3 L (3.5-5.0) g/dL Coronavirus (PCR) (Not Detectd) Influenza Type A RNA (Not Detectd) Influenza Type B (PCR) (Not Detectd) 09/13/21 09/13/21 09/13/21 Range/Units 10:49 10:49 10:56 WBC (3.8-10.6) k/uL RBC (3.80-5.40) m/uL Hgb (11.4-16.0) gm/dL Hct (34.0-46.0) % MCV (80.0-100.0) fL MCH (25.0-35.0) pg MCHC (31.0-37.0) g/dL RDW (11.5-15.5) % Plt Count (150-450) k/uL MPV Neutrophils % (Manual) % Lymphocytes % (Manual) % Monocytes % (Manual) % Eosinophils % (Manual) % Neutrophils # (Manual) (1.3-7.7) k/uL Lymphocytes # (Manual) (1.0-4.8) k/uL Monocytes # (Manual) (0-1.0) k/uL Eosinophils # (Manual) (0-0.7) k/uL Nucleated RBCs (0-0) /100 WBC Manual Slide Review Hypochromasia Anisocytosis Macrocytosis PT (9.0-12.0) sec INR (<1.2) APTT (22.0-30.0) sec Sodium (137-145) mmol/L Potassium (3.5-5.1) mmol/L Chloride (98-107) mmol/L Carbon Dioxide (22-30) mmol/L Anion Gap mmol/L BUN (7-17) mg/dL Creatinine (0.52-1.04) mg/dL Est GFR (CKD-EPI)AfAm (>60 ml/min/1.73 sqM) Est GFR (CKD-EPI)NonAf (>60 ml/min/1.73 sqM) Glucose (74-99) mg/dL Plasma Lactic Acid Javier 1.9 (0.7-2.0) mmol/L Calcium (8.4-10.2) mg/dL Magnesium (1.6-2.3) mg/dL Total Bilirubin (0.2-1.3) mg/dL AST (14-36) U/L ALT (4-34) U/L Alkaline Phosphatase (38-126) U/L Troponin I 0.103 H* (0.000-0.034) ng/mL Total Protein (6.3-8.2) g/dL Albumin (3.5-5.0) g/dL Coronavirus (PCR) Not Detected (Not Detectd) Influenza Type A RNA (Not Detectd) Influenza Type B (PCR) (Not Detectd) 09/13/21 Range/Units 11:04 WBC (3.8-10.6) k/uL RBC (3.80-5.40) m/uL Hgb (11.4-16.0) gm/dL Hct (34.0-46.0) % MCV (80.0-100.0) fL MCH (25.0-35.0) pg MCHC (31.0-37.0) g/dL RDW (11.5-15.5) % Plt Count (150-450) k/uL MPV Neutrophils % (Manual) % Lymphocytes % (Manual) % Monocytes % (Manual) % Eosinophils % (Manual) % Neutrophils # (Manual) (1.3-7.7) k/uL Lymphocytes # (Manual) (1.0-4.8) k/uL Monocytes # (Manual) (0-1.0) k/uL Eosinophils # (Manual) (0-0.7) k/uL Nucleated RBCs (0-0) /100 WBC Manual Slide Review Hypochromasia Anisocytosis Macrocytosis PT (9.0-12.0) sec INR (<1.2) APTT (22.0-30.0) sec Sodium (137-145) mmol/L Potassium (3.5-5.1) mmol/L Chloride (98-107) mmol/L Carbon Dioxide (22-30) mmol/L Anion Gap mmol/L BUN (7-17) mg/dL Creatinine (0.52-1.04) mg/dL Est GFR (CKD-EPI)AfAm (>60 ml/min/1.73 sqM) Est GFR (CKD-EPI)NonAf (>60 ml/min/1.73 sqM) Glucose (74-99) mg/dL Plasma Lactic Acid Javier (0.7-2.0) mmol/L Calcium (8.4-10.2) mg/dL Magnesium (1.6-2.3) mg/dL Total Bilirubin (0.2-1.3) mg/dL AST (14-36) U/L ALT (4-34) U/L Alkaline Phosphatase (38-126) U/L Troponin I (0.000-0.034) ng/mL Total Protein (6.3-8.2) g/dL Albumin (3.5-5.0) g/dL Coronavirus (PCR) (Not Detectd) Influenza Type A RNA Not Detected (Not Detectd) Influenza Type B (PCR) Not Detected (Not Detectd) - EKG Data -: EKG Interpreted by Me EKG Comments: 12-lead Electrocardiogram Interpretation Note EKG was reviewed and interpreted by myself. 12-lead ECG performed at 1104 is interpreted by me as revealing sinus tachycardia with PACs at a rate of 119 beats per minute. [place] is normal. RI interval is 127 ms, QRS duration is 90 ms, QTc is 371 ms.. There were no ST or T wave abnormalities to suggest myocardial ischemia or injury. R wave progression across the precordium was satisfactory. By my interpretation this EKG is non-diagnostic for acute ischemia. Critical Care Time Critical Care Time: Yes Total Critical Care Time: 35 Critical Care Time: Upon my evaluation, this patient had a high probability of imminent or life- threatening deterioration due to COPD exacerbation requiring BiPAP, acute on chronic hypoxic respiratory failure, which required my direct attention, intervention, and personal management. I have personally provided 35 minutes of critical care time exclusive of time spent on separately billable procedures. Time includes review of laboratory data, radiology results, discussion with consultants, and monitoring for potential decompensation. Interventions were performed as documented in my note. Disposition Clinical Impression: COPD exacerbation, Acute respiratory failure with hypoxia, Elevated troponin Disposition: ADMITTED IP TO THIS HOSP Condition: Serious Time of Disposition: 12:25
[2021-09-13] MEDS: DOXYCYCLINE 100 MG in SODIUM CHLORIDE 0.9% 100 ML IVPB SCH ×2 (13:38→21:50)
[2021-09-13] MEDS: IPRATROPIUM-ALBUTEROL 3 ML NEB INHALATION SCH ×3 (14:40→23:24)
[2021-09-13 16:43] LABS: Glucose,Whole Blood 195 mg/dL (70-110)
[2021-09-13 19:42] LABS: Glucose,Whole Blood 328 mg/dL (70-110)
[2021-09-13] MEDS: methylPREDNISolone SOD SUCCI 40 MG/ML 1 ML VIAL IV SCH ×2 (19:42→23:08)
[2021-09-13] MEDS: INSULN ASP PRT/INSULIN ASPART 100 UNIT/ML 10 ML VIAL SQ SCH (21:49)
[2021-09-13] MEDS: INSULIN ASPART (NovoLOG) 100 UNIT/ML VIAL SQ SCH (21:54)
[2021-09-13] MEDS: APIXABAN 5 MG TAB PO SCH (21:54)
--- NOTE | 2021-09-14 01:26 | P.HPIM ---
History of Present Illness H&P Date: 09/13/21 Chief Complaint: Shortness of breath Patient is a 70-year-old female with a known history of COPD on oxygen at 4 L via nasal cannula, GERD, hearing disorder/deafness, osteoarthritis, chronic back pain and left hip sciatic pain and former smoker presents to ER with complaints of shortness of breath. Patient is also having cough without much sputum production. Does have runny nose. Patient was seen in the PCPs office and was sent to ER due to shortness of breath. Denies any fever or chills. No nausea vomiting abdominal pain or diarrhea. Patient was recently diagnosed with DVT and is currently on Eliquis which she has been taking at home. On admission on admission patient was tachycardic and pulse ox 83% on 4 L oxygen via nasal cannula. Patient was placed on BiPAP. Laboratory pressure WBC 4.4 hemoglobin 11.0 and platelets 470 Sodium 138 potassium 5.2 chloride 102 bicarb is 29 BUN 36 and creatinine 1.39 and blood sugar is 181 AST 70 ALT 45 alk phos 73 and troponin 0.103 and 0.098 and 0.085 and Coronavirus PCR, influenza a and B PCR not detected. Chest x-ray showed persistent bibasilar opacities which are not significantly changed from recent stent stent placed but new from remote from 04/10/2020. Correlate for pneumonia and/or aspiration. COPD changes. Review of Systems Constitutional: Patient denies any fever or chills . No generalized weakness or weight loss. Abdomen: Patient denied nausea vomiting and diarrhea and abdominal pain. Cardiovascular: Patient denies any chest pain or short of breath no palpitations. Respiratory: Patient does have cough congestion and shortness of breath Neurologic: Patient denied any numbness or tingling headache. Musculoskeletal: Patient denies any complaints of joint swelling or deformity. Complete review of systems could not be obtained from the patient except as per HPI Past Medical History Past Medical History: COPD, GERD/Reflux, Hearing Disorder / Deafness, Osteoarthritis (OA), Renal Disease Additional Past Medical History / Comment(s): Pt recently admitted to [facility] on 08/08/21 with left lower extremity DVT. 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 History of Any Multi-Drug Resistant Organisms: None Reported Past Surgical History: Hernia Repair, Hysterectomy, Tonsillectomy, Tubal Ligation Additional Past Surgical History / Comment(s): R inguinal hernia repair, colonoscopies Past Anesthesia/Blood Transfusion Reactions: No Reported Reaction, Postoperative Nausea & Vomiting (PONV) Smoking Status: Former smoker - Past Family History Father Family Medical History: Cancer Additional Family Medical History / Comment(s): Lung cancer. Medications and Allergies Home Medications Medication Instructions Recorded Confirmed Type Mometasone/Formoterol [Dulera 200 2 puff INHALATION RT-BID 05/13/14 09/13/21 History Mcg-5 Mcg Inhaler] Denosumab [Prolia] 60 mg SQ Q180D 04/10/20 09/13/21 History Tiotropium 18 Mcg/Puff [Spiriva] 1 puff INHALATION RT-DAILY 04/10/20 09/13/21 History Albuterol Nebulized [Ventolin 2.5 mg INHALATION RT-QID PRN 07/07/21 09/13/21 History Nebulized] Ipratropium-Albuterol Nebulize 3 ml INHALATION RT-Q4H PRN ml 07/10/21 09/13/21 Rx [Duoneb 0.5 mg-3 mg/3 ml Soln] Ipratropium-Albuterol Nebulize 3 ml INHALATION RT-QID 30 Days 07/10/21 09/13/21 Rx [Duoneb 0.5 mg-3 mg/3 ml Soln] #120 each Pantoprazole [Protonix] 40 mg PO AC-BRKFST 14 Days #14 tab 07/10/21 09/13/21 Rx Albuterol Sulfate [Albuterol 2 puff PO RT-Q6H PRN 08/08/21 09/13/21 History Sulfate Hfa] Acetaminophen Tab [Tylenol] 650 mg PO Q6HR PRN tab 08/09/21 09/13/21 Rx Apixaban [Eliquis] 5 mg PO BID 09/13/21 09/13/21 History Omeprazole 20 mg PO DAILY 09/13/21 09/13/21 History Allergies Allergy/AdvReac Type Severity Reaction Status Date / Time sulfamethoxazole Allergy Unknown Verified 09/13/21 11:53 [From Bactrim] trimethoprim [From Bactrim] Allergy Unknown Verified 09/13/21 11:53 Physical Exam Vitals: Vital Signs Temp Pulse Resp BP Pulse Ox FiO2 09/13/21 14:12 98.0 F 91 20 105/65 98 09/13/21 12:12 101 H 31 H 09/13/21 12:01 99 35 H 09/13/21 11:17 125 H 38 H 09/13/21 10:55 122 H 40 H 09/13/21 10:52 50 09/13/21 10:43 124 H 106/89 91 L 09/13/21 10:27 98 F 133 H 20 65 L Intake and Output 09/12/21 09/13/21 09/13/21 22:59 06:59 14:59 Other: Weight 72.575 kg PHYSICAL EXAMINATION: Patient is lying in the bed comfortably, mild distress, awake alert and oriented.. HEENT: Normocephalic. Neck is supple. Pupils reactive. Nostrils clear. Oral cavity is moist. Neck reveals no JVD, carotid bruits, or thyromegaly. CHEST EXAMINATION: Trachea is central. Symmetrical expansion. Bilateral diffuse rhonchi, wheezing and coarse breath sounds.. CARDIAC: Normal S1, S2 with no gallops. No murmurs ABDOMEN: Soft. Bowel sounds normal. No organomegaly. No abdominal bruits. Extremities: reveal no edema. No clubbing or cyanosis Neurologically awake, alert, oriented x3 with well-coordinated movements. No gross focal deficits noted Skin: No rash or skin lesions. Psychiatric: Coperative. Nonsuicidal Musculoskeletal: No joint swelling or deformity. Normal range of motion. Results CBC & Chem 7: 09/14/21 08:14 09/14/21 08:14 Labs: Abnormal Lab Results - Last 24 Hours (Table) 09/13/21 09/13/21 09/13/21 Range/Units 10:49 10:49 10:49 RBC 3.40 L (3.80-5.40) m/uL Hgb 11.0 L (11.4-16.0) gm/dL MCV 106.0 H (80.0-100.0) fL MCHC 30.4 L (31.0-37.0) g/dL RDW 17.7 H (11.5-15.5) % Plt Count 470 H D (150-450) k/uL Lymphocytes # (Manual) 0.72 L (1.0-4.8) k/uL Macrocytosis Marked A Potassium 5.2 H (3.5-5.1) mmol/L BUN 36 H (7-17) mg/dL Creatinine 1.39 H (0.52-1.04) mg/dL Glucose 181 H (74-99) mg/dL AST 70 H (14-36) U/L ALT 45 H (4-34) U/L Troponin I 0.103 H* (0.000-0.034) ng/mL Albumin 3.3 L (3.5-5.0) g/dL Thrombosis Risk Factor Assmnt - DVT/VTE Prophylaxis DVT/VTE Prophylaxis: Pharmacologic Prophylaxis ordered - Choose All That Apply Any of the Below Risk Factors Present?: Yes Each Factor Represents 1 point: Abnormal pulmonary function (COPD), Medical pt on bed rest, Serious lung disease incl. pneumonia (< 1month) Other Risk Factors: Yes Each Risk Factor Represents 2 Points: Age 61-74 years, Patient confined to bed Each Risk Factor Represents 3 Points: History of DVT/PE Other congenital or acquired thrombophilia - If yes, enter type in comment: No Thrombosis Risk Factor Assessment Total Risk Factor Score: 10 Thrombosis Risk Factor Assessment Level: High Risk Assessment and Plan Assessment: Acute hypoxic respiratory failure requiring BiPAP on admission. Bibasilar opacities due to pneumonia Acute COPD exacerbation Elevated troponin level likely due to demand mismatch. Mild hyperkalemia due to acute kidney injury. Acute kidney injury injury likely prerenal. Microcytic anemia with hemoglobin level 11.0 GERD Diabetes type 2 insulin-dependent Hearing disorder/deafness Osteoarthritis Chronic back pain Occasional dysphagia Previous history of smoking Plan: Patient will be continued on oxygen supplementation and currently on BiPAP. Continue with duo nebs, methylprednisolone 40 mg every 6 hourly and antibiotics and above ceftriaxone and doxycycline. Follow-up culture reports. Cardiology was consulted elevated troponin level and pulmonary will be consulted. Continue to monitor closely. Insulin sliding scale. Time with Patient: Greater than 30
[2021-09-14 01:58] LABS: Glucose,Whole Blood 108 mg/dL (70-110)
[2021-09-14] MEDS: IPRATROPIUM-ALBUTEROL 3 ML NEB INHALATION SCH ×5 (03:51→20:34)
[2021-09-14 06:31] LABS: Glucose,Whole Blood 167 mg/dL (70-110)
[2021-09-14] MEDS: methylPREDNISolone SOD SUCCI 40 MG/ML 1 ML VIAL IV SCH ×3 (06:46→17:36)
[2021-09-14] MEDS: INSULN ASP PRT/INSULIN ASPART 100 UNIT/ML 10 ML VIAL SQ SCH ×2 (06:46→17:36)
[2021-09-14] MEDS: INSULIN ASPART (NovoLOG) 100 UNIT/ML VIAL SQ SCH ×4 (06:46→20:07)
[2021-09-14] MEDS: PANTOPRAZOLE 40 MG TABLET PO SCH (06:48)
[2021-09-14] MEDS ORDERED: NON FORMULARY DRUG (Tiotropium 18 Mcg/Puff 1 PUFF Inhaler) INHALATION SCH (08:00)
[2021-09-14] MEDS: SYMBICORT 160-4.5 MCG INHALER INHALATION SCH ×2 (08:08→20:34)
[2021-09-14] MEDS: DOXYCYCLINE 100 MG in SODIUM CHLORIDE 0.9% 100 ML IVPB SCH ×2 (08:12→20:07)
[2021-09-14] MEDS: APIXABAN 5 MG TAB PO SCH (08:13)
[2021-09-14] MEDS ORDERED: NON FORMULARY DRUG (Omeprazole [Omeprazole] 20 MG Capsule.Dr) PO SCH (09:00)
[2021-09-14 09:01] LABS: Calcium 7.9 mg/dL (8.4-10.2); Potassium 4.2 mmol/L (3.5-5.1)
[2021-09-14 09:24] LABS: Anisocytosis Slight; HCT 31.3 % (34.0-46.0); Hypochromasia Marked; MCH 32.1 pg (25.0-35.0); MCV 107.1 fL (80.0-100.0); Macrocytosis Marked; Mean Platelet Volume 9.4; Platelet Count 342 k/uL (150-450); RBC 2.92 m/uL (3.80-5.40); RDW 17.6 % (11.5-15.5); WBC 2.4 k/uL (3.8-10.6)
[2021-09-14 09:25] LABS: HGB 9.4 gm/dL (11.4-16.0)
[2021-09-14 10:51] LABS: Estimated Average Glucose UNC
--- NOTE | 2021-09-14 11:15 | P.CRDCN ---
History of Present Illness Consult date: 09/14/21 History of present illness: HISTORY OF PRESENT ILLNESS: This is a 70-year-old female with a past medical history significant for DVT, COPD, and home oxygen use. 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 We have been asked to see the patient in consultation for abnormal troponins. Patient examined at the bedside. Patient presented to the ER after being seen at her PCP office. She was found to be hypoxic. Per ER documentation, patients oxygen saturations were in the 70s. The patient was placed on a BiPAP however this morning she has been transitioned back to nasal cannula. The patient denied having any chest pain or pressure. She does report feeling short of breath yesterday but states it is improving today. She is unsure if she had any cough or fever. * EKG reveals sinus mechanism with no signs of acute ischemia * Chest xray persistent bibasilar opacities which are not significantly changed from recent priors but new from remote priors from March 2020. Correlate for pneumonia and/or aspiration. COPD changes. * Laboratory data: WBC 2.4. Hemoglobin 9.4. Platelet count 342. Sodium 139. Potassium 4.2. BUN 36. Creatinine 1.27. Troponin 0.103. 0.098. 0.085. * Current home cardiac medications include Eliquis 5 mg twice a day REVIEW OF SYSTEMS: At the time of my exam: CONSTITUTIONAL: Denies fever or chills. HEENT: Denies blurred vision, vision changes, or eye pain. Denies hemoptysis CARDIOVASCULAR: Denies chest pain. Denies orthopnea. Denies PND. Denies palpitations RESPIRATORY: Denies shortness of breath. GASTROINTESTINAL: Denies abdominal pain. Denies nausea or vomiting. HEMATOLOGIC: Denies bleeding disorders. GENITOURINARY: Denies any blood in urine. SKIN: Denies pruitis. Denies rash. PHYSICAL EXAM: VITAL SIGNS: Reviewed. GENERAL: Well-developed in no acute distress. HEENT: Head is normocephalic. Pupils are equal, round. Sclerae anicteric. Mucous membranes of the mouth are moist. Neck supple. No JVD or thyromegaly LUNGS: Respirations even and unlabored. Lungs with decreased air exchange bilaterally HEART: Regular rate and rhythm. S1 and S2 heard. ABDOMEN: Soft. Nondistended. Nontender. EXTREMITIES: Normal range of motion. No clubbing or cyanosis. Peripheral pulses intact. No lower extremity edema NEUROLOGIC: Awake and alert. Oriented x 3. ASSESSMENT: Shortness of breath Acute on chronic hypoxic respiratory failure History of COPD with home oxygen use History of DVT, on Eliquis Abnormal troponins, likely secondary to type II [place] secondary to oxygen supply and demand mismatch secondary to hypoxia, acute coronary syndrome ruled out PLAN: Obtain 2-D echo to assess cardiac structure and function Continue anticoagulation with Eliquis Pulmonary consulted. Await evaluation Further recommendations pending patient's course Nurse practitioner note has been reviewed by physician. Signing provider agrees with the documented findings, assessment, and plan of care. Past Medical History Past Medical History: COPD, GERD/Reflux, Hearing Disorder / Deafness, Osteoarthritis (OA), Renal Disease Additional Past Medical History / Comment(s): Pt recently admitted to [facility] on 08/08/21 with left lower extremity DVT. 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 History of Any Multi-Drug Resistant Organisms: None Reported Past Surgical History: Hernia Repair, Hysterectomy, Tonsillectomy, Tubal Ligation Additional Past Surgical History / Comment(s): R inguinal hernia repair, colonoscopies Past Anesthesia/Blood Transfusion Reactions: No Reported Reaction, Postoperative Nausea & Vomiting (PONV) Smoking Status: Former smoker - Past Family History Father Family Medical History: Cancer Additional Family Medical History / Comment(s): Lung cancer. Medications and Allergies Home Medications Medication Instructions Recorded Confirmed Type Mometasone/Formoterol [Dulera 200 2 puff INHALATION RT-BID 05/13/14 09/13/21 History Mcg-5 Mcg Inhaler] Denosumab [Prolia] 60 mg SQ Q180D 04/10/20 09/13/21 History Tiotropium 18 Mcg/Puff [Spiriva] 1 puff INHALATION RT-DAILY 04/10/20 09/13/21 History Albuterol Nebulized [Ventolin 2.5 mg INHALATION RT-QID PRN 07/07/21 09/13/21 History Nebulized] Ipratropium-Albuterol Nebulize 3 ml INHALATION RT-Q4H PRN ml 05/17/22 07/21/22 Rx [Duoneb 0.5 mg-3 mg/3 ml Soln] Ipratropium-Albuterol Nebulize 3 ml INHALATION RT-QID 30 Days 07/10/21 09/13/21 Rx [Duoneb 0.5 mg-3 mg/3 ml Soln] #120 each Pantoprazole [Protonix] 40 mg PO AC-BRKFST 14 Days #14 tab 07/10/21 09/13/21 Rx Albuterol Sulfate [Albuterol 2 puff PO RT-Q6H PRN 08/08/21 09/13/21 History Sulfate Hfa] Acetaminophen Tab [Tylenol] 650 mg PO Q6HR PRN tab 08/09/21 09/13/21 Rx Apixaban [Eliquis] 5 mg PO BID 09/13/21 09/13/21 History Omeprazole 20 mg PO DAILY 09/13/21 09/13/21 History Allergies Allergy/AdvReac Type Severity Reaction Status Date / Time sulfamethoxazole Allergy Unknown Verified 09/13/21 11:53 [From Bactrim] trimethoprim [From Bactrim] Allergy Unknown Verified 09/13/21 11:53 Physical Exam Vitals: Vital Signs Temp Pulse Pulse Resp BP BP Pulse Ox 09/14/21 08:22 98 09/14/21 08:17 99 09/14/21 08:10 96 09/14/21 08:00 96 24 121/68 87 L 09/14/21 04:02 95 09/14/21 04:00 97.9 F 86 20 112/56 94 L 09/14/21 03:53 90 09/14/21 02:00 90 20 09/14/21 00:00 98.1 F 90 20 97/52 90 L 09/13/21 23:33 99 09/13/21 23:26 96 09/13/21 20:18 96 09/13/21 20:10 96 09/13/21 20:00 98.1 F 85 20 93/52 96 09/13/21 14:51 97.7 F 95 30 H 101/65 99 09/13/21 14:49 101 H 26 H 09/13/21 14:40 100 26 H 09/13/21 14:37 09/13/21 14:12 98.0 F 91 20 105/65 98 09/13/21 14:00 93 18 125/84 98 09/13/21 13:30 100 20 127/63 98 09/13/21 13:00 103 H 20 103/78 96 09/13/21 12:30 122 H 20 109/66 97 09/13/21 12:12 101 H 31 H 09/13/21 12:01 99 35 H 09/13/21 12:00 101 H 20 125/84 100 09/13/21 11:30 126 H 20 113/80 97 09/13/21 11:17 125 H 38 H 09/13/21 11:00 131 H 28 H 132/95 97 09/13/21 10:55 122 H 40 H 09/13/21 10:52 09/13/21 10:43 124 H 106/89 91 L 09/13/21 10:27 98 F 133 H 20 65 L FiO2 09/14/21 08:22 09/14/21 08:17 09/14/21 08:10 09/14/21 08:00 09/14/21 04:02 09/14/21 04:00 09/14/21 03:53 09/14/21 02:00 09/14/21 00:00 09/13/21 23:33 09/13/21 23:26 09/13/21 20:18 09/13/21 20:10 09/13/21 20:00 09/13/21 14:51 40 09/13/21 14:49 09/13/21 14:40 09/13/21 14:37 40 09/13/21 14:12 09/13/21 14:00 09/13/21 13:30 09/13/21 13:00 09/13/21 12:30 09/13/21 12:12 09/13/21 12:01 09/13/21 12:00 09/13/21 11:30 09/13/21 11:17 09/13/21 11:00 09/13/21 10:55 09/13/21 10:52 50 09/13/21 10:43 09/13/21 10:27 Intake and Output 09/13/21 09/14/21 09/14/21 22:59 06:59 14:59 Intake Total 250 20 Output Total 600 Balance 250 -580 Intake: IV 10 20 Invasive Line 1 10 20 Oral 240 Output: Urine 600 Other: Voiding Method Bedside Commode # Voids 1 2 1 # Bowel Movements 1 Results 09/14/21 08:14 09/14/21 08:14 Cardiac Enzymes 09/13/21 09/13/21 09/13/21 Range/Units 10:49 10:49 15:22 AST 70 H (14-36) U/L Troponin I 0.103 H* 0.098 H* (0.000-0.034) ng/mL 09/13/21 Range/Units 17:28 AST (14-36) U/L Troponin I 0.085 H* (0.000-0.034) ng/mL Coagulation 09/13/21 Range/Units 10:49 PT 10.9 (9.0-12.0) sec APTT 25.9 (22.0-30.0) sec CBC 09/13/21 Range/Units 10:49 WBC 4.5 (3.8-10.6) k/uL RBC 3.40 L (3.80-5.40) m/uL Hgb 11.0 L (11.4-16.0) gm/dL Hct 36.1 (34.0-46.0) % Plt Count 470 H D (150-450) k/uL Comprehensive Metabolic Panel 09/13/21 Range/Units 10:49 Sodium 138 (137-145) mmol/L Potassium 5.2 H (3.5-5.1) mmol/L Chloride 102 (98-107) mmol/L Carbon Dioxide 29 (22-30) mmol/L BUN 36 H (7-17) mg/dL Creatinine 1.39 H (0.52-1.04) mg/dL Glucose 181 H (74-99) mg/dL Calcium 8.6 (8.4-10.2) mg/dL AST 70 H (14-36) U/L ALT 45 H (4-34) U/L Alkaline Phosphatase 73 (38-126) U/L Total Protein 7.5 (6.3-8.2) g/dL Albumin 3.3 L (3.5-5.0) g/dL Current Medications Generic Name Dose Route Start Last Admin Trade Name Freq PRN Reason Stop Dose Admin Albuterol/Ipratropium 3 ml 09/13/21 16:00 09/14/21 08:08 Ipratropium-Albuterol 3 Ml Neb INHALATION 3 ml RT-Q4H VIDA Administration Apixaban 5 mg 09/13/21 21:00 09/14/21 08:13 Apixaban 5 Mg Tab PO 5 mg BID VIDA Administration Protocol Budesonide/Formoterol Fumarate 2 puff 09/14/21 08:00 09/14/21 08:08 Symbicort 160-4.5 Mcg Inhaler INHALATION 2 puff RT-BID VIDA Administration Doxycycline Hyclate 100 mg/ 100 mls @ 100 mls/hr 09/13/21 12:45 09/14/21 0 8:12 Sodium Chloride IVPB 100 mls/hr Q12HR VIDA Administration Protocol Insulin Aspart 0 unit 09/13/21 21:00 09/14/21 06:46 Insulin Aspart (Novolog) 100 Unit/Ml Vial SQ 3 unit ACHS VIDA Administration Protocol Insulin Aspart 20 unit 09/13/21 20:15 09/14/21 06:46 Insuln Asp Prt/Insulin Aspart 100 Unit/Ml 10 Ml Vial SQ 20 unit AC-BID VIDA Administration Methylprednisolone Sodium Succinate 40 mg 09/13/21 18:00 09/14/21 06:46 Methylprednisolone Sod Succi 40 Mg/Ml 1 Ml Vial IV 40 mg Q6HR VIDA Administration Naloxone HCl 0.2 mg 09/13/21 12:27 Naloxone 0.4 Mg/Ml 1 Ml Vial IV Q2M PRN Opioid Reversal Pantoprazole Sodium 40 mg 09/14/21 07:30 09/14/21 06:48 Pantoprazole 40 Mg Tablet PO 40 mg AC-BRKFST VIDA Administration Intake and Output 09/13/21 09/14/21 09/14/21 22:59 06:59 14:59 Intake Total 250 20 Output Total 600 Balance 250 -580 Intake: IV 10 20 Invasive Line 1 10 20 Oral 240 Output: Urine 600 Other: Voiding Method Bedside Commode # Voids 1 2 1 # Bowel Movements 1 09/13/21 10:49 09/13/21 10:49
[2021-09-14 11:27] LABS: Lymphocytes # (M) 0.77 k/uL (1.0-4.8); Monocytes # (M) 0.02 k/uL (0-1.0); Neutrophils # (M) 1.61 k/uL (1.3-7.7); Neutrophils % (M) 67 %; Nucleated Red Blood Cells 0 /100 WBC (0-0); Total Cells Counted 100
[2021-09-14 11:51] LABS: Glucose,Whole Blood 165 mg/dL (70-110)
--- NOTE | 2021-09-14 12:21 | CA ---
Transthoracic Echo Report Name: Delmy Anderson Age: 70 Gender: F : 1950 Exam Date: 09/14/2021 10:40 Exam Location: [facility] Ht (in): 60 Wt (lb): 160 Ordering Physician: Delmi Patterson Attending/Referring Phys: [id number], Leonardo Dresser Tender Gwen Mosquera, HARPREET Procedure CPT: Indications: LV function, abnormal trops Cardiac Hx: Technical Quality: Fair Contrast 1: Total Dose (mL): Contrast 2: Total Dose (mL): MEASUREMENTS (Male / Female) Normal Values 2D ECHO LV Diastolic Diameter PLAX 3.7 cm 4.2 - 5.9 / 3.9 - 5.3 cm LV Systolic Diameter PLAX 3.1 cm IVS Diastolic Thickness 1.0 cm 0.6 - 1.0 / 0.6 - 0.9 cm LVPW Diastolic Thickness 1.1 cm 0.6 - 1.0 / 0.6 - 0.9 cm LV Relative Wall Thickness 0.6 RV Internal Dim ED PLAX 2.7 cm LA Systolic Diameter LX 4.0 cm 3.0 - 4.0 / 2.7 - 3.8 cm LA Volume 50.0 cm??? 18 - 58 / 22 - 52 cm??? M-MODE Aortic Root Diameter MM 3.1 cm MV E Point Septal Separation 0.7 cm AV Cusp Separation MM 2.0 cm DOPPLER AV Peak Velocity 137.8 cm/s AV Peak Gradient 7.6 mmHg MV Area PHT 4.0 cm??? Mitral E Point Velocity 122.5 cm/s Mitral A Point Velocity 126.2 cm/s Mitral E to A Ratio 1.0 MV Deceleration Time 191.9 ms MV E' Velocity 6.9 cm/s Mitral E to MV E' Ratio 17.8 TR Peak Velocity 271.7 cm/s TR Peak Gradient 29.5 mmHg Right Ventricular Systolic Press 34.2 mmHg FINDINGS Left Ventricle Left ventricular ejection fraction is estimated at 60-65 %. Left ventricular cavity size normal. Mildly increased septal wall thickness. Mildly increased posterior wall thickness. Right Ventricle Normal right ventricular size. Mild pulmonary hypertension. Right Atrium Normal right atrial size. Left Atrium Mildly increased left atrial diameter. No evidence for an atrial septal defect. Mitral Valve Mild mitral annular calcification. No mitral stenosis, regurgitation or prolapse. Aortic Valve Trileaflet aortic valve. No aortic valve stenosis or regurgitation. Tricuspid Valve Mild tricuspid regurgitation. Pulmonic Valve Structurally normal pulmonic valve. Pericardium Normal pericardium. No pericardial effusion. Aorta Normal size aortic root and proximal ascending aorta. CONCLUSIONS Normal left ventricular ejection fraction 60-65% Mild LVH Mild mitral ring calcification No mitral regurgitation Mild tricuspid regurgitation Previewed by: Dr. Ko Vyas DO (Electronically Signed) Final Date: 14 September 2021 12:20
[2021-09-14] MEDS: ACETAMINOPHEN TAB 325 MG TAB PO PRN (12:39)
--- NOTE | 2021-09-14 14:40 | P.CNPUL ---
History of Present Illness Consult date: 09/14/21 Reason for consult: dyspnea, COPD History of present illness: 70-year-old female patient with known history of advanced COPD. FEV1 has ranged between 30 and 35% of predicted and the patient is demented on a combination of Dulera and Spiriva on outpatient basis. The patient is known to us and she typically follows up with us in the office regarding her COPD and she also uses pro-air rescue inhaler on an as needed basis. The patient was referred to us for symptoms of increased shortness of breath. The patient denies having any significant cough or sputum production. No pleurisy. No hemoptysis. No chest pain. She was expressing worsening shortness of breath which was consistent with her underlying COPD. Her chest x-ray showed bibasilar opacities, essentially unchanged and the patient had no evidence of any consolidation or airspace disease. The patient blood EKG showed normal sinus mechanism without any acute ischemic changes. The patient's blood work showed a white cell count of 2.4 with hemoglobin 9.4 and a platelet count of 342. Sodium was at 139, potassium is at 4.2, BUN is at 36 with a creatinine of 1.2. Her influenza A and B screen was negative. Her: COVID 19 screening was also negative. Echo of the heart showed a normal ejection fraction of 65%, no valvular abnormalities of been noted. The patient is a smoker. She quit smoking. Months back Review of Systems Constitutional: Denies chills, Denies fever Eyes: denies blurred vision, denies pain Ears, nose, mouth and throat: Denies headache, Denies sore throat Cardiovascular: Reports chest pain, endorses shortness of breath Respiratory: Reports dyspnea, no significant chest pain or pleurisy or he moptysis. The patient exceeded wheezes. Gastrointestinal: Denies abdominal pain, Denies diarrhea, Denies nausea, Denies vomiting Genitourinary: Denies dysuria, Denies hematuria Musculoskeletal: Denies myalgias Integumentary: Denies pruritus, Denies rash Neurological: Denies numbness, Denies weakness Psychiatric: Denies anxiety, Denies depression Endocrine: Denies fatigue, Denies weight change Past Medical History Past Medical History: COPD, GERD/Reflux, Hearing Disorder / Deafness, Osteoarthritis (OA), Renal Disease Additional Past Medical History / Comment(s): Pt recently admitted to [facility] on 08/08/21 with left lower extremity DVT. Other hx: Chronic hypoxic respiratory failure, home oxygen lately at 4L?[place] ATC, chronic bullous emphysema, L kidney d oes not function, diverticular disease, benign colon polyps, past ileus, osteoporosis, chronic back pain, L hip nerve pain, occasional dysphagia, UTIs, tinnitis. History of Any Multi-Drug Resistant Organisms: None Reported Past Surgical History: Hernia Repair, Hysterectomy, Tonsillectomy, Tubal Ligation Additional Past Surgical History / Comment(s): R inguinal hernia repair, colonoscopies Past Anesthesia/Blood Transfusion Reactions: No Reported Reaction, Postoperative Nausea & Vomiting (PONV) Smoking Status: Former smoker - Past Family History Father Family Medical History: Cancer Additional Family Medical History / Comment(s): Lung cancer. Medications and Allergies Home Medications Medication Instructions Recorded Confirmed Type Mometasone/Formoterol [Dulera 200 2 puff INHALATION RT-BID 05/13/14 09/13/21 History Mcg-5 Mcg Inhaler] Denosumab [Prolia] 60 mg SQ Q180D 04/10/20 09/13/21 History Tiotropium 18 Mcg/Puff [Spiriva] 1 puff INHALATION RT-DAILY 04/10/20 09/13/21 History Albuterol Nebulized [Ventolin 2.5 mg INHALATION RT-QID PRN 07/07/21 09/13/21 History Nebulized] Ipratropium-Albuterol Nebulize 3 ml INHALATION RT-Q4H PRN ml 07/10/21 09/13/21 Rx [Duoneb 0.5 mg-3 mg/3 ml Soln] Ipratropium-Albuterol Nebulize 3 ml INHALATION RT-QID 30 Days 07/10/21 09/13/21 Rx [Duoneb 0.5 mg-3 mg/3 ml Soln] #120 each Pantoprazole [Protonix] 40 mg PO AC-BRKFST 14 Days #14 tab 07/10/21 09/13/21 Rx Albuterol Sulfate [Albuterol 2 puff PO RT-Q6H PRN 08/08/21 09/13/21 History Sulfate Hfa] Acetaminophen Tab [Tylenol] 650 mg PO Q6HR PRN tab 08/09/21 09/13/21 Rx Apixaban [Eliquis] 5 mg PO BID 09/13/21 09/13/21 History Omeprazole 20 mg PO DAILY 09/13/21 09/13/21 History Allergies Allergy/AdvReac Type Severity Reaction Status Date / Time sulfamethoxazole Allergy Unknown Verified 09/13/21 11:53 [From Bactrim] trimethoprim [From Bactrim] Allergy Unknown Verified 09/13/21 11:53 Physical Exam Vitals: Vital Signs Temp Pulse Pulse Resp BP BP Pulse Ox 09/14/21 08:22 98 09/14/21 08:17 99 09/14/21 08:10 96 09/14/21 08:00 96 24 121/68 87 L 09/14/21 04:02 95 09/14/21 04:00 97.9 F 86 20 112/56 94 L 09/14/21 03:53 90 09/14/21 02:00 90 20 09/14/21 00:00 98.1 F 90 20 97/52 90 L 09/13/21 23:33 99 09/13/21 23:26 96 09/13/21 20:18 96 09/13/21 20:10 96 09/13/21 20:00 98.1 F 85 20 93/52 96 09/13/21 14:51 97.7 F 95 30 H 101/65 99 09/13/21 14:49 101 H 26 H 09/13/21 14:40 100 26 H 09/13/21 14:37 09/13/21 14:12 98.0 F 91 20 105/65 98 09/13/21 14:00 93 18 125/84 98 09/13/21 13:30 100 20 127/63 98 09/13/21 13:00 103 H 20 103/78 96 09/13/21 12:30 122 H 20 109/66 97 09/13/21 12:12 101 H 31 H 09/13/21 12:01 99 35 H 09/13/21 12:00 101 H 20 125/84 100 09/13/21 11:30 126 H 20 113/80 97 09/13/21 11:17 125 H 38 H FiO2 09/14/21 08:22 09/14/21 08:17 09/14/21 08:10 09/14/21 08:00 09/14/21 04:02 09/14/21 04:00 09/14/21 03:53 09/14/21 02:00 09/14/21 00:00 09/13/21 23:33 09/13/21 23:26 09/13/21 20:18 09/13/21 20:10 09/13/21 20:00 09/13/21 14:51 40 09/13/21 14:49 09/13/21 14:40 09/13/21 14:37 40 09/13/21 14:12 09/13/21 14:00 09/13/21 13:30 09/13/21 13:00 09/13/21 12:30 09/13/21 12:12 09/13/21 12:01 09/13/21 12:00 09/13/21 11:30 09/13/21 11:17 Intake and Output 09/13/21 09/14/21 09/14/21 22:59 06:59 14:59 Intake Total 250 20 Output Total 600 Balance 250 -580 Intake: IV 10 20 Invasive Line 1 10 20 Oral 240 Output: Urine 600 Other: Voiding Method Bedside Commode # Voids 1 2 1 # Bowel Movements 1 GENERAL EXAM: Alert, very pleasant, 69-year-old white female, 4 L of oxygen with pulse ox of 90%, HEAD: Normocephalic/atraumatic. EYES: Normal reaction of pupils, equal size. Conjunctiva pink, sclera white. NOSE: Clear with pink turbinates. THROAT: No erythema or exudates. NECK: No masses, no JVD, no thyroid enlargement, no adenopathy. CHEST: No chest wall deformity. Symmetrical expansion. Patient has significant left lateral rib tenderness with light palpation LUNGS: Diminished air entry bilateral, no wheezes no crackles CVS: Regular rate and rhythm, normal S1 and S2, no gallops, no murmurs, no rubs ABDOMEN: Soft, nontender. No hepatosplenomegaly, normal bowel sounds, no guarding or rigidity. EXTREMITIES: No clubbing, no edema, no cyanosis, 2+ pulses and upper and lower extremities. MUSCULOSKELETAL: Muscle strength and tone normal. SPINE: No scoliosis or deformity SKIN: No rashes CENTRAL NERVOUS SYSTEM: Alert and oriented -3. No focal deficits, tone is normal in all 4 extremities. PSYCHIATRIC: Alert and oriented -3. Appropriate affect. Intact judgment and insight. Results - Laboratory Findings CBC and BMP: 09/14/21 08:14 09/14/21 08:14 PT/INR, D-dimer PT 10.9 sec (9.0-12.0) 09/13/21 10:49 INR 1.0 (<1.2) 09/13/21 10:49 Abnormal lab findings: Abnormal Labs 09/13/21 09/13/21 09/13/21 10:49 10:49 10:49 WBC RBC 3.40 L Hgb 11.0 L Hct MCV 106.0 H MCHC 30.4 L RDW 17.7 H Plt Count 470 H D Lymphocytes # (Manual) 0.72 L Macrocytosis Marked A Potassium 5.2 H BUN 36 H Creatinine 1.39 H Glucose 181 H POC Glucose (mg/dL) Calcium AST 70 H ALT 45 H Troponin I 0.103 H* Albumin 3.3 L 09/13/21 09/13/21 09/13/21 15:22 16:42 17:28 WBC RBC Hgb Hct MCV MCHC RDW Plt Count Lymphocytes # (Manual) Macrocytosis Potassium BUN Creatinine Glucose POC Glucose (mg/dL) 195 H Calcium AST ALT Troponin I 0.098 H* 0.085 H* Albumin 09/13/21 09/14/21 09/14/21 19:41 06:26 08:14 WBC 2.4 L RBC 2.92 L Hgb 9.4 L D Hct 31.3 L MCV 107.1 H MCHC 30.0 L RDW 17.6 H Plt Count Lymphocytes # (Manual) Macrocytosis Marked A Potassium BUN Creatinine Glucose POC Glucose (mg/dL) 328 H 167 H Calcium AST ALT Troponin I Albumin 09/14/21 08:14 WBC RBC Hgb Hct MCV MCHC RDW Plt Count Lymphocytes # (Manual) Macrocytosis Potassium BUN 36 H Creatinine 1.27 H Glucose 129 H POC Glucose (mg/dL) Calcium 7.9 L AST ALT Troponin I Albumin - Diagnostic Findings Chest x-ray: image reviewed Assessment and Plan Plan: Acute COPD exacerbation, no clear exacerbating factor. No clear indication of underlying pneumonia. The patient is aphasic worsening shortness of breath. Cardiac status is stable. Echocardiogram is within normal limits. Chest x-ray is not showing any acute pulmonary infiltrates or areas of consolidation. COVID 19 testing by PCR came back negative and influenza screen was also negative. Mother the patient undergoes low-dose computed tomography scan of the chest on a yearly basis and patient underwent a CAT scan of the chest and August 2021 showing some areas of focal infiltration in the posterolateral aspect of the left lung base with some nonspecific inflammatory changes also. Possibility of underlying pneumonia cannot be completely excluded based on those findings. I feel that the possibility of pneumonia is felt to be less likely. Advanced COPD, patient's FEV1 was around 30% Chronic hypoxic respiratory failure related to acute exacerbation of COPD Dyspnea Chronic and ongoing history of smoking History of GERD/reflux Left lower extremity DVT, on Eliquis, 2021 Benign colon polyps osteoporosis/osteoarthritis/chronic back pain chronic back pain L hip nerve pain Chronic microcytic anemia with a hemoglobin of 11 Plan Optimize COPD with a combination of bronchodilators steroids and the patient was placed on IV Solu Medrol 60 mg every 6 hours Empiric antibiotic coverage with a combination of Rocephin and doxycycline Resume all medications including patient's long-term anticoagulation with Eliquis Re: DVTs Patient is demented on a combination of Dulera and Spiriva on outpatient basis. Consider switching this patient from this current combination into Trelegy Ellipta for maintenance we'll continue to follow. There is a non-complicated COPD exacerbation. Cardiology consultation will also been obtained.
--- NOTE | 2021-09-14 15:24 | P.GSCN ---
History of Present Illness Consult date: 09/14/21 History of present illness: CHIEF COMPLAINT: Shortness of breath HISTORY OF PRESENT ILLNESS: This is a 70-year-old female presented to hospital with worsening shortness of breath and low oxygen saturation and her PCP office. She's been diagnosed with COPD exacerbation. She's on steroids and nebulizer treatments. Followed by pulmonary service. Also evaluated by cardiology due to elevated troponins in which acute coronary syndrome was ruled out they felt it was likely secondary to a type II MS due to oxygen supply and demand mismatch secondary to hypoxia. Patient is on Eliquis for DVT in her leg that was diagnosed one month ago. Patient does have some confusion on if she had blood in her stools. Per nursing staff they reported bright red blood noted in her bowel movements yesterday 2. Since then she has had no bowel movements. Patient denies any abdominal pain. Denies any nausea or vomiting. She is tolerating diet. Her last colonoscopy was in April 2015 which did reveal diverticulosis. She had an EGD in April 2014 with early distal esophageal stricture and erosions and ulcerations of the esophagus and moderate hiatal hernia. Patient denies any NSAID use. She does currently remain on the Eliquis. Her hemoglobin did drop from 11-9.4. PAST MEDICAL HISTORY: COPD, GERD/Reflux, Hearing Disorder / Deafness, Osteoarthritis (OA), Renal Dis ease, DVT left leg 08/08/21, PAST SURGICAL HISTORY: See list. MEDICATIONS: See list. ALLERGIES: See list. SOCIAL HISTORY: No illicit drug use. REVIEW OF SYSTEMS: CONSTITUTIONAL: Denies fever or chills. HEENT: Denies blurred vision, vision changes, or eye pain. Denies hemoptysis CARDIOVASCULAR: Denies chest pain or pressure. RESPIRATORY: No shortness of breath. GASTROINTESTINAL: See HPI for pertinent findings HEMATOLOGIC: Denies bleeding disorders. GENITOURINARY: Denies any blood in urine or increased urinary frequency. SKIN: Denies pruitis. Denies rash. PHYSICAL EXAM: VITAL SIGNS: Reviewed GENERAL: Well-developed in no acute distress. HEENT: No sclera icterus. Extraocular movements grossly intact. Moist buccal mucosa. Head is atraumatic, normocephalic. No nasal drainage. ABDOMEN: Soft. Nondistended. Nontender NEUROLOGIC: Awake and alert LABORATORY DATA: WBC 2.4 hemoglobin did drop from 11-9.4 platelets 342 Sodium 139 potassium 4.2 creatinine 1.27 Covid and influenza not detected IMAGING: Echo EF 60-65% ASSESSMENT: 1. Acute GI bleed with bright red blood per rectum on anticoagulation 2. Macrocytic anemia 3. History of diverticulosis 4. History of erosions and ulcerations of the esophagus on previous EGD in April 2014 5. COPD exacerbation 6. Elevated troponins evaluated by cardiology service PLAN: -Patient is tentatively scheduled for EGD and colonoscopy on Friday if medically stable -Discussed case with Dr Tao and he is aware of patient's recent DVT of the leg and he recommends to hold Eliquis -Continue to monitor hemoglobin -Continue to monitor for any signs or symptoms of bleeding -Continue Protonix -Continue supportive care Thank you for this consultation Physician [employer] note has been reviewed by physician. Signing provider agrees with the documented findings, assessment, and plan of care. Past Medical History Past Medical History: COPD, GERD/Reflux, Hearing Disorder / Deafness, Osteoarthritis (OA), Renal Disease Additional Past Medical History / Comment(s): Pt recently admitted to [facility] on 08/08/21 with left lower extremity DVT. 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 History of Any Multi-Drug Resistant Organisms: None Reported Past Surgical History: Hernia Repair, Hysterectomy, Tonsillectomy, Tubal Ligation Additional Past Surgical History / Comment(s): R inguinal hernia repair, colonoscopies Past Anesthesia/Blood Transfusion Reactions: No Reported Reaction, Postoperative Nausea & Vomiting (PONV) Smoking Status: Former smoker - Past Family History Father Family Medical History: Cancer Additional Family Medical History / Comment(s): Lung cancer. Medications and Allergies Home Medications Medication Instructions Recorded Confirmed Type Mometasone/Formoterol [Dulera 200 2 puff INHALATION RT-BID 05/13/14 09/13/21 History Mcg-5 Mcg Inhaler] Denosumab [Prolia] 60 mg SQ Q180D 04/10/20 09/13/21 History Tiotropium 18 Mcg/Puff [Spiriva] 1 puff INHALATION RT-DAILY 04/10/20 09/13/21 History Albuterol Nebulized [Ventolin 2.5 mg INHALATION RT-QID PRN 07/07/21 09/13/21 History Nebulized] Ipratropium-Albuterol Nebulize 3 ml INHALATION RT-Q4H PRN ml 07/10/21 09/13/21 Rx [Duoneb 0.5 mg-3 mg/3 ml Soln] Ipratropium-Albuterol Nebulize 3 ml INHALATION RT-QID 30 Days 07/10/21 09/13/21 Rx [Duoneb 0.5 mg-3 mg/3 ml Soln] #120 each Pantoprazole [Protonix] 40 mg PO AC-BRKFST 14 Days #14 tab 07/10/21 09/13/21 Rx Albuterol Sulfate [Albuterol 2 puff PO RT-Q6H PRN 08/08/21 09/13/21 History Sulfate Hfa] Acetaminophen Tab [Tylenol] 650 mg PO Q6HR PRN tab 08/09/21 09/13/21 Rx Apixaban [Eliquis] 5 mg PO BID 09/13/21 09/13/21 History Omeprazole 20 mg PO DAILY 09/13/21 09/13/21 History Allergies Allergy/AdvReac Type Severity Reaction Status Date / Time sulfamethoxazole Allergy Unknown Verified 09/13/21 11:53 [From Bactrim] trimethoprim [From Bactrim] Allergy Unknown Verified 09/13/21 11:53 Surgical - Exam Vital Signs Temp Pulse Resp Pulse Ox 98 F 133 H 20 65 L 09/13/21 10:27 09/13/21 10:27 09/13/21 10:27 09/13/21 10:27 Results - Labs 09/14/21 08:14 09/14/21 08:14 Abnormal Lab Results - Last 24 Hours (Table) 09/13/21 09/13/21 09/13/21 Range/Units 15:22 16:42 17:28 WBC (3.8-10.6) k/uL RBC (3.80-5.40) m/uL Hgb (11.4-16.0) gm/dL Hct (34.0-46.0) % MCV (80.0-100.0) fL MCHC (31.0-37.0) g/dL RDW (11.5-15.5) % Lymphocytes # (Manual) (1.0-4.8) k/uL Macrocytosis BUN (7-17) mg/dL Creatinine (0.52-1.04) mg/dL Glucose (74-99) mg/dL POC Glucose (mg/dL) 195 H (70-110) mg/dL Hemoglobin A1c (0.0-6.0) % Calcium (8.4-10.2) mg/dL Troponin I 0.098 H* 0.085 H* (0.000-0.034) ng/mL 09/13/21 09/14/21 09/14/21 Range/Units 19:41 06:26 08:14 WBC (3.8-10.6) k/uL RBC (3.80-5.40) m/uL Hgb (11.4-16.0) gm/dL Hct (34.0-46.0) % MCV (80.0-100.0) fL MCHC (31.0-37.0) g/dL RDW (11.5-15.5) % Lymphocytes # (Manual) (1.0-4.8) k/uL Macrocytosis BUN (7-17) mg/dL Creatinine (0.52-1.04) mg/dL Glucose (74-99) mg/dL POC Glucose (mg/dL) 328 H 167 H (70-110) mg/dL Hemoglobin A1c 6.2 H (0.0-6.0) % Calcium (8.4-10.2) mg/dL Troponin I (0.000-0.034) ng/mL 09/14/21 09/14/21 09/14/21 Range/Units 08:14 08:14 11:48 WBC 2.4 L (3.8-10.6) k/uL RBC 2.92 L (3.80-5.40) m/uL Hgb 9.4 L D (11.4-16.0) gm/dL Hct 31.3 L (34.0-46.0) % MCV 107.1 H (80.0-100.0) fL MCHC 30.0 L (31.0-37.0) g/dL RDW 17.6 H (11.5-15.5) % Lymphocytes # (Manual) 0.77 L (1.0-4.8) k/uL Macrocytosis Marked A BUN 36 H (7-17) mg/dL Creatinine 1.27 H (0.52-1.04) mg/dL Glucose 129 H (74-99) mg/dL POC Glucose (mg/dL) 165 H (70-110) mg/dL Hemoglobin A1c (0.0-6.0) % Calcium 7.9 L (8.4-10.2) mg/dL Troponin I (0.000-0.034) ng/mL Microbiology - Last 24 Hours (Table) 09/13/21 12:30 Blood Culture - Preliminary Blood No Growth after 24 hours 09/13/21 12:15 Blood Culture Gram Stain - Preliminary Blood Blood Culture - Preliminary Streptococcus species 09/13/21 12:15 Blood Culture - Final Blood Diabetes panel 09/14/21 09/14/21 Range/Units 08:14 08:14 Sodium 139 (137-145) mmol/L Potassium 4.2 (3.5-5.1) mmol/L Chloride 107 (98-107) mmol/L Carbon Dioxide 24 (22-30) mmol/L BUN 36 H (7-17) mg/dL Creatinine 1.27 H (0.52-1.04) mg/dL Glucose 129 H (74-99) mg/dL Hemoglobin A1c 6.2 H (0.0-6.0) % Calcium 7.9 L (8.4-10.2) mg/dL Calcium panel 09/14/21 Range/Units 08:14 Calcium 7.9 L (8.4-10.2) mg/dL Pituitary panel 09/14/21 Range/Units 08:14 Sodium 139 (137-145) mmol/L Potassium 4.2 (3.5-5.1) mmol/L Chloride 107 (98-107) mmol/L Carbon Dioxide 24 (22-30) mmol/L BUN 36 H (7-17) mg/dL Creatinine 1.27 H (0.52-1.04) mg/dL Glucose 129 H (74-99) mg/dL Calcium 7.9 L (8.4-10.2) mg/dL Adrenal panel 09/14/21 Range/Units 08:14 Sodium 139 (137-145) mmol/L Potassium 4.2 (3.5-5.1) mmol/L Chloride 107 (98-107) mmol/L Carbon Dioxide 24 (22-30) mmol/L BUN 36 H (7-17) mg/dL Creatinine 1.27 H (0.52-1.04) mg/dL Glucose 129 H (74-99) mg/dL Calcium 7.9 L (8.4-10.2) mg/dL
[2021-09-14 16:47] LABS: Glucose,Whole Blood 158 mg/dL (70-110)
[2021-09-14 20:05] LABS: Glucose,Whole Blood 134 mg/dL (70-110)
[2021-09-14 20:40] LABS: Appearance,Urine Cloudy (Clear); Bilirubin,Urine Negative (Negative); Blood,Urine Negative (Negative); Color,Urine Yellow; Glucose,Urine (UA) Negative (Negative); Ketones,Urine Negative (Negative); Leukocyte Esterase,Urine Trace (Negative); Mucus,Urine Rare /hpf; Nitrite,Urine Negative (Negative); PH, Urine 5.5 (5.0-8.0); Protein,Urine 1+ (Negative); RBC,Urine 1 /hpf (0-5); Specific Gravity,Urine 1.024 (1.001-1.035); Squamous Epithelial Cell,Urine 1 /hpf (0-4); Urobilinogen,Urine <2.0 mg/dL (<2.0); WBC,Urine 7 /hpf (0-5)
[2021-09-15] MEDS: IPRATROPIUM-ALBUTEROL 3 ML NEB INHALATION SCH ×6 (00:06→20:27)
[2021-09-15] MEDS: methylPREDNISolone SOD SUCCI 40 MG/ML 1 ML VIAL IV SCH ×6 (01:07→22:48)
[2021-09-15 06:11] LABS: Glucose,Whole Blood 138 mg/dL (70-110)
[2021-09-15] MEDS: INSULIN ASPART (NovoLOG) 100 UNIT/ML VIAL SQ SCH ×4 (06:13→20:25)
[2021-09-15] MEDS: PANTOPRAZOLE 40 MG TABLET PO SCH (06:34)
[2021-09-15] MEDS: INSULN ASP PRT/INSULIN ASPART 100 UNIT/ML 10 ML VIAL SQ SCH ×2 (06:55→17:18)
[2021-09-15] MEDS: DOXYCYCLINE 100 MG in SODIUM CHLORIDE 0.9% 100 ML IVPB SCH ×2 (07:59→21:06)
[2021-09-15 08:25] LABS: Anisocytosis Slight; Basophils % (A) 1 %; Eosinophils % (A) 0 %; HCT 32.4 % (34.0-46.0); HGB 9.5 gm/dL (11.4-16.0); Hypochromasia Marked; Lymphocytes # (A) 0.5 k/uL (1.0-4.8); Lymphocytes % (A) 18 %; MCH 33.2 pg (25.0-35.0); MCHC 29.4 g/dL (31.0-37.0); Macrocytosis Marked; Mean Platelet Volume 8.1; Monocytes # (A) 0.3 k/uL (0-1.0); Monocytes % (A) 10 %; Neutrophils % (A) 67 %; Platelet Count 462 k/uL (150-450); RBC 2.87 m/uL (3.80-5.40); RDW 18.3 % (11.5-15.5)
[2021-09-15] MEDS: SYMBICORT 160-4.5 MCG INHALER INHALATION SCH ×2 (08:32→20:27)
[2021-09-15] MEDS: ACETAMINOPHEN TAB 325 MG TAB PO PRN (08:39)
[2021-09-15 08:48] LABS: Calcium 8.7 mg/dL (8.4-10.2)
[2021-09-15 08:59] LABS: MCV 112.8 fL (80.0-100.0)
[2021-09-15 10:39] LABS: Poikilocytosis (M) Present; Polychromasia Present
--- NOTE | 2021-09-15 10:45 | P.PN ---
Progress Note - Text Progress Note Date: 09/15/21 Patient's resting comfortably in her bed. She denies any rectal bleeding. Her hemoglobin is 9.5. On exam vital signs appear stable. Abdomen soft. We will attempt endoscopy on Friday patient medically stable.
[2021-09-15] MEDS ORDERED: NITROGLYCERIN SL TABS 0.4 MG TAB SUBLINGUAL ONE (11:00)
--- NOTE | 2021-09-15 11:45 | P.PN ---
Subjective Progress Note Date: 09/15/21 70-year-old female patient with known history of advanced COPD. FEV1 has ranged between 30 and 35% of predicted and the patient is demented on a combination of Dulera and Spiriva on outpatient basis. The patient is known to us and she typically follows up with us in the office regarding her COPD and she also uses pro-air rescue inhaler on an as needed basis. The patient was referred to us for symptoms of increased shortness of breath. The patient denies having any significant cough or sputum production. No pleurisy. No hemoptysis. No chest pain. She was expressing worsening shortness of breath which was consistent with her underlying COPD. Her chest x-ray showed bibasilar opacities, essentially unchanged and the patient had no evidence of any consolidation or airspace disease. The patient blood EKG showed normal sinus mechanism without any acute ischemic changes. The patient's blood work showed a white cell count of 2.4 with hemoglobin 9.4 and a platelet count of 342. Sodium was at 139, potassium is at 4.2, BUN is at 36 with a creatinine of 1.2. Her influenza A and B screen was negative. Her: COVID 19 screening was also negative. Echo of the heart showed a normal ejection fraction of 65%, no valvular abnormalities of been noted. The patient is a smoker. She quit smoking. Months back 09/15/2021, seeing the patient for a follow-up. No major respiratory difficulties. No significant bronchospasm or wheezing on today's evaluation. A COPD exacerbation is also improving. There is a single set of blood culture that showed streptococcus species and for that reason the patient remains on IV Rocephin. The patient was also being worked up for chronic anemia. Note that on today's blood work, the white cell count is at 3 with a hemoglobin of 9.5 and platelet count of 462. Sodium is at 141 and I is a 35 and a creatinine of 1.1. The patient has a positive for hemolytic strep and a blood cultures.. Echocardiogram was also done and the patient has a preserved LV function with an ejection fraction of 6065%. As far as the anemia workup, the patient denies having any rectal bleeding. Hemoglobin was at 9.5. Endoscopy is being planned for Friday. Objective - Vital Signs Vital signs: Vital Signs Temp 98.4 F 09/15/21 11:01 Pulse 94 09/15/21 11:09 Resp 22 09/15/21 11:09 BP 114/62 09/15/21 11:09 Pulse Ox 93 L 09/15/21 11:09 FiO2 40 09/13/21 14:51 Intake & Output 09/14/21 09/15/21 09/15/21 18:59 06:59 18:59 Intake Total 236 Output Total 450 Balance -450 236 Intake: Oral 236 Output: Urine 450 Other: Voiding Method Bedside Commode # Voids 1 1 - Exam GENERAL EXAM: Alert, very pleasant, 69-year-old white female, 4 L of oxygen with pulse ox of 90%, HEAD: Normocephalic/atraumatic. EYES: Normal reaction of pupils, equal size. Conjunctiva pink, sclera white. NOSE: Clear with pink turbinates. THROAT: No erythema or exudates. NECK: No masses, no JVD, no thyroid enlargement, no adenopathy. CHEST: No chest wall deformity. Symmetrical expansion. Patient has significant left lateral rib tenderness with light palpation LUNGS: Diminished air entry bilateral, no wheezes no crackles CVS: Regular rate and rhythm, normal S1 and S2, no gallops, no murmurs, no rubs ABDOMEN: Soft, nontender. No hepatosplenomegaly, normal bowel sounds, no guardi ng or rigidity. EXTREMITIES: No clubbing, no edema, no cyanosis, 2+ pulses and upper and lower extremities. MUSCULOSKELETAL: Muscle strength and tone normal. SPINE: No scoliosis or deformity SKIN: No rashes CENTRAL NERVOUS SYSTEM: Alert and oriented -3. No focal deficits, tone is normal in all 4 extremities. PSYCHIATRIC: Alert and oriented -3. Appropriate affect. Intact judgment and insight. - Labs CBC & Chem 7: 09/15/21 07:36 09/15/21 07:36 Labs: Abnormal Lab Results - Last 24 Hours (Table) 09/14/21 09/14/21 09/14/21 Range/Units 08:14 11:48 16:45 WBC (3.8-10.6) k/uL RBC (3.80-5.40) m/uL Hgb (11.4-16.0) gm/dL Hct (34.0-46.0) % MCV (80.0-100.0) fL MCHC (31.0-37.0) g/dL RDW (11.5-15.5) % Plt Count (150-450) k/uL Lymphocytes # (1.0-4.8) k/uL Macrocytosis Chloride (98-107) mmol/L BUN (7-17) mg/dL Creatinine (0.52-1.04) mg/dL Glucose (74-99) mg/dL POC Glucose (mg/dL) 165 H 158 H (70-110) mg/dL Hemoglobin A1c 6.2 H (0.0-6.0) % Urine Appearance (Clear) Urine Protein (Negative) Ur Leukocyte Esterase (Negative) Urine WBC (0-5) /hpf Urine Mucus (None) /hpf 09/14/21 09/14/21 09/15/21 Range/Units 20:01 20:17 06:10 WBC (3.8-10.6) k/uL RBC (3.80-5.40) m/uL Hgb (11.4-16.0) gm/dL Hct (34.0-46.0) % MCV (80.0-100.0) fL MCHC (31.0-37.0) g/dL RDW (11.5-15.5) % Plt Count (150-450) k/uL Lymphocytes # (1.0-4.8) k/uL Macrocytosis Chloride (98-107) mmol/L BUN (7-17) mg/dL Creatinine (0.52-1.04) mg/dL Glucose (74-99) mg/dL POC Glucose (mg/dL) 134 H 138 H (70-110) mg/dL Hemoglobin A1c (0.0-6.0) % Urine Appearance Cloudy H (Clear) Urine Protein 1+ H (Negative) Ur Leukocyte Esterase Trace H (Negative) Urine WBC 7 H (0-5) /hpf Urine Mucus Rare H (None) /hpf 09/15/21 09/15/21 Range/Units 07:36 07:36 WBC 3.0 L (3.8-10.6) k/uL RBC 2.87 L (3.80-5.40) m/uL Hgb 9.5 L (11.4-16.0) gm/dL Hct 32.4 L (34.0-46.0) % MCV 112.8 H D (80.0-100.0) fL MCHC 29.4 L (31.0-37.0) g/dL RDW 18.3 H (11.5-15.5) % Plt Count 462 H (150-450) k/uL Lymphocytes # 0.5 L (1.0-4.8) k/uL Macrocytosis Marked A Chloride 108 H (98-107) mmol/L BUN 35 H (7-17) mg/dL Creatinine 1.16 H (0.52-1.04) mg/dL Glucose 121 H (74-99) mg/dL POC Glucose (mg/dL) (70-110) mg/dL Hemoglobin A1c (0.0-6.0) % Urine Appearance (Clear) Urine Protein (Negative) Ur Leukocyte Esterase (Negative) Urine WBC (0-5) /hpf Urine Mucus (None) /hpf Microbiology - Last 24 Hours (Table) 09/13/21 12:15 Blood Culture Gram Stain - Final Blood Blood Culture - Final Alpha Hemolytic Streptococcus 09/13/21 12:30 Blood Culture - Preliminary Blood No Growth after 24 hours Assessment and Plan Plan: Acute COPD exacerbation, no clear exacerbating factor. No clear indication of underlying pneumonia. The patient is aphasic worsening shortness of breath. Cardiac status is stable. Echocardiogram is within normal limits. Chest x-ray is not showing any acute pulmonary infiltrates or areas of consolidation. COVID 19 testing by PCR came back negative and influenza screen was also negative. Mother the patient undergoes low-dose computed tomography scan of the chest on a yearly basis and patient underwent a CAT scan of the chest and August 2021 showing some areas of focal infiltration in the posterolateral aspect of the left lung base with some nonspecific inflammatory changes also. Possibility of underlying pneumonia cannot be completely excluded based on those findings. I feel that the possibility of pneumonia is felt to be less likely. Advanced COPD, patient's FEV1 was around 30% Bacteremia with alphahemolytic strep, currently under investigation, the patient remains on IV Rocephin Chronic hypoxic respiratory failure related to acute exacerbation of COPD Dyspnea Chronic and ongoing history of smoking History of GERD/reflux Left lower extremity DVT, on 2021 Benign colon polyps osteoporosis/osteoarthritis/chronic back pain chronic back pain L hip nerve pain Chronic anemia with a hemoglobin of 9.5 Plan Awaiting final cultures and sensitivities from the blood Continue IV Rocephin Hemodynamically stable COPD stable and continue bronchodilators and steroids Empiric antibiotic coverage with a combination of Rocephin and doxycycline Resume all medications including patient's long-term anticoagulation with Eliquis Re: DVTs Patient is demented on a combination of Dulera and Spiriva on outpatient basis. Consider switching this patient from this current combination into Trelegy Ellipta for maintenance Endoscopy regarding GI workup for anemia Echo of the heart was essentially within normal limits we'll continue to follow.
[2021-09-15 12:00] LABS: Glucose,Whole Blood 107 mg/dL (70-110)
[2021-09-15] MEDS ORDERED: METOPROLOL SUCCINATE (ER) 25 MG TAB.ER.24H PO STA (12:05)
[2021-09-15] MEDS: NITROGLYCERIN OINT 1 INCH/GM PACKET TOPICAL SCH ×3 (12:14→22:48)
[2021-09-15 16:54] LABS: Glucose,Whole Blood 146 mg/dL (70-110)
--- NOTE | 2021-09-15 17:53 | PN ---
PROGRESS NOTE FOLLOW-UP NOTE: Delmy is a 70-year-old lady who was admitted to hospital with COPD exacerbation and GI bleed. She has history of atrial fibrillation and takes Eliquis regularly. She had an episode of chest pain this morning. On her presentation her troponins were elevated. She had some ST-T wave changes that could be due to ischemia. Patient's chest pain has resolved following sublingual nitroglycerin. We will obtain serial troponins. Unfortunately, she is not a candidate for intravenous heparin or invasive procedures, given the GI bleed. Her hemoglobin had dropped on this admission and she had lawrence blood per rectum. I will treat her with nitrates and beta blockers. On exam she is comfortable at rest, [id number]. Chest exam reveals good air entry bilaterally. Heart exam reveals first and second heart sounds, a systolic murmur at the apex. Abdomen is soft. Examination of extremities did not reveal any edema. Peripheral pulses are felt. ASSESSMENT: 1. Acute [id number]-elevation myocardial infarction. 2. Chronic obstructive pulmonary disease. 3. Gastrointestinal bleed. PLAN: Optimal medical therapy. Prognosis guarded. MMODL / IJN: [id number] /
[2021-09-15 20:15] LABS: Glucose,Whole Blood 68 mg/dL (70-110)
[2021-09-15 20:33] LABS: Glucose,Whole Blood 68 mg/dL (70-110)
[2021-09-15 20:50] LABS: Glucose,Whole Blood 107 mg/dL (70-110)
[2021-09-16] MEDS: IPRATROPIUM-ALBUTEROL 3 ML NEB INHALATION SCH ×8 (00:16→23:47)
[2021-09-16 06:02] LABS: Glucose,Whole Blood 120 mg/dL (70-110)
[2021-09-16] MEDS: INSULIN ASPART (NovoLOG) 100 UNIT/ML VIAL SQ SCH ×4 (06:12→23:09)
[2021-09-16] MEDS: INSULN ASP PRT/INSULIN ASPART 100 UNIT/ML 10 ML VIAL SQ SCH ×2 (06:38→17:16)
[2021-09-16] MEDS: methylPREDNISolone SOD SUCCI 40 MG/ML 1 ML VIAL IV SCH ×3 (06:40→17:21)
[2021-09-16] MEDS: NITROGLYCERIN OINT 1 INCH/GM PACKET TOPICAL SCH ×3 (06:40→17:21)
[2021-09-16] MEDS: PANTOPRAZOLE 40 MG TABLET PO SCH (06:40)
[2021-09-16 07:40] LABS: Anisocytosis Slight; HCT 31.9 % (34.0-46.0); HGB 9.4 gm/dL (11.4-16.0); Hypochromasia Marked; MCHC 29.3 g/dL (31.0-37.0); Macrocytosis Marked; Mean Platelet Volume 7.7; Platelet Count 463 k/uL (150-450); RBC 2.93 m/uL (3.80-5.40); RDW 18.5 % (11.5-15.5); WBC 2.6 k/uL (3.8-10.6)
[2021-09-16] MEDS: SYMBICORT 160-4.5 MCG INHALER INHALATION SCH ×2 (07:48→19:29)
[2021-09-16 07:54] LABS: Calcium 8.8 mg/dL (8.4-10.2); Potassium 4.8 mmol/L (3.5-5.1)
[2021-09-16] MEDS: ACETAMINOPHEN TAB 325 MG TAB PO PRN (08:10)
[2021-09-16] MEDS ORDERED: PEG 3350 (236 GM/BTL) + LYTES 4,000 ML BOTTLE PO ONE (09:00)
[2021-09-16] MEDS: DOXYCYCLINE 100 MG in SODIUM CHLORIDE 0.9% 100 ML IVPB SCH ×2 (09:39→20:57)
[2021-09-16 09:45] LABS: Lymphocytes # (M) 0.68 k/uL (1.0-4.8); Monocytes # (M) 0.05 k/uL (0-1.0); Neutrophils # (M) 1.87 k/uL (1.3-7.7); Neutrophils % (M) 72 %; Nucleated Red Blood Cells 0 /100 WBC (0-0); Poikilocytosis (M) Present; Total Cells Counted 100
[2021-09-16 11:42] LABS: Glucose,Whole Blood 122 mg/dL (70-110)
--- NOTE | 2021-09-16 11:51 | P.PN ---
Subjective Progress Note Date: 09/16/21 70-year-old female patient with known history of advanced COPD. FEV1 has ranged between 30 and 35% of predicted and the patient is demented on a combination of Dulera and Spiriva on outpatient basis. The patient is known to us and she typically follows up with us in the office regarding her COPD and she also uses pro-air rescue inhaler on an as needed basis. The patient was referred to us for symptoms of increased shortness of breath. The patient denies having any significant cough or sputum production. No pleurisy. No hemoptysis. No chest pain. She was expressing worsening shortness of breath which was consistent with her underlying COPD. Her chest x-ray showed bibasilar opacities, essentially unchanged and the patient had no evidence of any consolidation or airspace disease. The patient blood EKG showed normal sinus mechanism without any acute ischemic changes. The patient's blood work showed a white cell count of 2.4 with hemoglobin 9.4 and a platelet count of 342. Sodium was at 139, potassium is at 4.2, BUN is at 36 with a creatinine of 1.2. Her influenza A and B screen was negative. Her: COVID 19 screening was also negative. Echo of the heart showed a normal ejection fraction of 65%, no valvular abnormalities of been noted. The patient is a smoker. She quit smoking. Months back 09/15/2021, seeing the patient for a follow-up. No major respiratory difficulties. No significant bronchospasm or wheezing on today's evaluation. A COPD exacerbation is also improving. There is a single set of blood culture that showed streptococcus species and for that reason the patient remains on IV Rocephin. The patient was also being worked up for chronic anemia. Note that on today's blood work, the white cell count is at 3 with a hemoglobin of 9.5 and platelet count of 462. Sodium is at 141 and I is a 35 and a creatinine of 1.1. The patient has a positive for hemolytic strep and a blood cultures.. Echocardiogram was also done and the patient has a preserved LV function with an ejection fraction of 6065%. As far as the anemia workup, the patient denies having any rectal bleeding. Hemoglobin was at 9.5. Endoscopy is being planned for Friday. 09/16/2021, no new complaints and the patient continues to improve. She is being treated for an acute exacerbation. She was found to have a possible culture which is alpha hemolytic strep and the patient remains on IV Rocephin. She remains on IV Solu-Medrol 40 mg every 6 hours. She is on DuoNeb nebulized she is of the clock. She is also on Symbicort. No altered mentation. No nausea or vomiting. Diarrhea or abdominal pain. The white cell count is at 2.6 hemoglobin 9.4 and platelet count of 463. BUN is a 33 with a creatinine of 1.1 and sodium level is at 140. Objective - Vital Signs Vital signs: Vital Signs Temp 97.7 F 09/16/21 07:58 Pulse 82 09/16/21 11:13 Resp 20 09/16/21 07:58 BP 114/64 09/16/21 07:58 Pulse Ox 95 09/16/21 07:58 FiO2 40 09/13/21 14:51 Intake & Output 09/15/21 09/16/21 09/16/21 18:59 06:59 18:59 Intake Total 622 240 Balance 622 240 Intake: Intake, IV Titration 150 Amount Doxycycline 100 mg In 100 Sodium Chloride 0.9% 100 ml @ 100 mls/hr IVPB Q12HR [facility] Rx#:[id number] cefTRIAXone 2 gm In 50 Sodium Chloride 0.9% 50 ml @ 100 mls/hr IVPB Q24HR [facility] Rx#:[id number] Oral 472 240 Other: Voiding Method Bedside Commode # Voids 1 1 1 - Exam GENERAL EXAM: Alert, very pleasant, 69-year-old white female, 4 L of oxygen with pulse ox of 90%, HEAD: Normocephalic/atraumatic. EYES: Normal reaction of pupils, equal size. Conjunctiva pink, sclera white. NOSE: Clear with pink turbinates. THROAT: No erythema or exudates. NECK: No masses, no JVD, no thyroid enlargement, no adenopathy. CHEST: No chest wall deformity. Symmetrical expansion. Patient has significant left lateral rib tenderness with light palpation LUNGS: Diminished air entry bilateral, no wheezes no crackles CVS: Regular rate and rhythm, normal S1 and S2, no gallops, no murmurs, no rubs ABDOMEN: Soft, nontender. No hepatosplenomegaly, normal bowel sounds, no guarding or rigidity. EXTREMITIES: No clubbing, no edema, no cyanosis, 2+ pulses and upper and lower extremities. MUSCULOSKELETAL: Muscle strength and tone normal. SPINE: No scoliosis or deformity SKIN: No rashes CENTRAL NERVOUS SYSTEM: Alert and oriented -3. No focal deficits, tone is normal in all 4 extremities. PSYCHIATRIC: Alert and oriented -3. Appropriate affect. Intact judgment and insight. - Labs CBC & Chem 7: 09/16/21 07:05 09/16/21 07:05 Labs: Abnormal Lab Results - Last 24 Hours (Table) 09/15/21 09/15/21 09/15/21 Range/Units 16:51 20:11 20:29 WBC (3.8-10.6) k/uL RBC (3.80-5.40) m/uL Hgb (11.4-16.0) gm/dL Hct (34.0-46.0) % MCV (80.0-100.0) fL MCHC (31.0-37.0) g/dL RDW (11.5-15.5) % Plt Count (150-450) k/uL Lymphocytes # (Manual) (1.0-4.8) k/uL Macrocytosis Chloride (98-107) mmol/L BUN (7-17) mg/dL Creatinine (0.52-1.04) mg/dL Glucose (74-99) mg/dL POC Glucose (mg/dL) 146 H 68 L 68 L (70-110) mg/dL 09/16/21 09/16/21 09/16/21 Range/Units 06:01 07:05 07:05 WBC 2.6 L (3.8-10.6) k/uL RBC 2.93 L (3.80-5.40) m/uL Hgb 9.4 L (11.4-16.0) gm/dL Hct 31.9 L (34.0-46.0) % MCV 109.0 H (80.0-100.0) fL MCHC 29.3 L (31.0-37.0) g/dL RDW 18.5 H (11.5-15.5) % Plt Count 463 H (150-450) k/uL Lymphocytes # (Manual) 0.68 L (1.0-4.8) k/uL Macrocytosis Marked A Chloride 108 H (98-107) mmol/L BUN 33 H (7-17) mg/dL Creatinine 1.14 H (0.52-1.04) mg/dL Glucose 106 H (74-99) mg/dL POC Glucose (mg/dL) 120 H (70-110) mg/dL 09/16/21 Range/Units 11:38 WBC (3.8-10.6) k/uL RBC (3.80-5.40) m/uL Hgb (11.4-16.0) gm/dL Hct (34.0-46.0) % MCV (80.0-100.0) fL MCHC (31.0-37.0) g/dL RDW (11.5-15.5) % Plt Count (150-450) k/uL Lymphocytes # (Manual) (1.0-4.8) k/uL Macrocytosis Chloride (98-107) mmol/L BUN (7-17) mg/dL Creatinine (0.52-1.04) mg/dL Glucose (74-99) mg/dL POC Glucose (mg/dL) 122 H (70-110) mg/dL Microbiology - Last 24 Hours (Table) 09/15/21 07:36 Blood Culture - Preliminary Blood No Growth after 24 hours 09/13/21 12:30 Blood Culture - Preliminary Blood No Growth after 48 hours 09/13/21 12:15 Blood Culture Gram Stain - Final Blood Blood Culture - Final Alpha Hemolytic Streptococcus Assessment and Plan Plan: Acute COPD exacerbation, no clear exacerbating factor. No clear indication of underlying pneumonia. The patient is aphasic worsening shortness of breath. Cardiac status is stable. Echocardiogram is within normal limits. Chest x-ray is not showing any acute pulmonary infiltrates or areas of consolidation. COVID 19 testing by PCR came back negative and influenza screen was also negative. Mother the patient undergoes low-dose computed tomography scan of the chest on a yearly basis and patient underwent a CAT scan of the chest and August 2021 showing some areas of focal infiltration in the posterolateral aspect of the left lung base with some nonspecific inflammatory changes also. Possibility of underlying pneumonia cannot be completely excluded based on those findings. I feel that the possibility of pneumonia is felt to be less likely. The patient is cl inically stable and the patient continues to improve Advanced COPD, patient's FEV1 was around 30% Bacteremia with Streptococcus alphahemolytic Chronic hypoxic respiratory failure related to acute exacerbation of COPD Dyspnea Chronic and ongoing history of smoking History of GERD/reflux Left lower extremity DVT, on Eliquis, 2021 Benign colon polyps osteoporosis/osteoarthritis/chronic back pain chronic back pain L hip nerve pain Chronic anemia with a hemoglobin of 9.4 Plan Hemodynamically stable COPD stable and continue bronchodilators and steroids Continue IV Rocephin Start the patient on prednisone burst taper as of tomorrow Resume all medications including patient's long-term anticoagulation with Eliquis Re: DVTs Patient is demented on a combination of Dulera and Spiriva on outpatient basis. Consider switching this patient from this current combination into Trelegy El lipta for maintenance Endoscopy regarding GI workup for anemia Echo of the heart was essentially within normal limits we'll continue to follow.
--- NOTE | 2021-09-16 13:03 | P.PN ---
Progress Note - Text Progress Note Date: 09/16/21 Patient [place] stable. She is scheduled for upper and lower endoscopy in the a.m. On exam vessels are still. Abdomen soft. Patient will undergo bowel prep today for endoscopy.
[2021-09-16 16:33] LABS: Glucose,Whole Blood 105 mg/dL (70-110)
--- NOTE | 2021-09-16 17:01 | PN ---
PROGRESS NOTE FOLLOW-UP NOTE: This is a 70-year-old lady who is admitted to hospital with COPD exacerbation and GI bleed. Yesterday she had an episode of chest pain. Because of GI bleed she is not a candidate for anticoagulation. This morning she remains pain-free, hemodynamically stable. On exam comfortable at rest. Vital signs are stable. Chest exam reveals good air entry bilaterally. Heart exam reveals first and second heart sounds. No gallop. Examination of the extremities did not reveal any edema. The patient is on nitro paste, which I will continue. If necessary we will add a beta mathew. MMODL / IJN: [id number] /
[2021-09-16 19:45] LABS: Glucose,Whole Blood 112 mg/dL (70-110)
--- NOTE | 2021-09-16 23:06 | P.PN ---
Subjective Progress Note Date: 09/14/21 Patient is a 70-year-old female with a known history of COPD on oxygen at 4 L via nasal cannula, GERD, hearing disorder/deafness, osteoarthritis, chronic back pain and left hip sciatic pain and former smoker presents to ER with complaints of shortness of breath. Patient is also having cough without much sputum production. Does have runny nose. Patient was seen in the PCPs office and was sent to ER due to shortness of breath. Denies any fever or chills. No nausea vomiting abdominal pain or diarrhea. Patient was recently diagnosed with DVT and is currently on Eliquis which she has been taking at home. On admission on admission patient was tachycardic and pulse ox 83% on 4 L oxygen via nasal cannula. Patient was placed on BiPAP. Laboratory pressure WBC 4.4 hemoglobin 11.0 and platelets 470 Sodium 138 potassium 5.2 chloride 102 bicarb is 29 BUN 36 and creatinine 1.39 and blood sugar is 181 AST 70 ALT 45 alk phos 73 and troponin 0.103 and 0.098 and 0.085 and Coronavirus PCR, influenza a and B PCR not detected. Chest x-ray showed persistent bibasilar opacities which are not significantly c hanged from recent stent stent placed but new from remote from 04/10/2020. Correlate for pneumonia and/or aspiration. COPD changes. 09/14/2021 Patient is currently sitting in the bed. Awake alert and oriented. Still having shortness of breath. BiPAP is off and patient is on nasal cannula oxygen. No complaints of chest tightness/pain. No nausea vomiting abdominal pain or diarrhea. Otherwise patient did have Bollen with bright red blood hemoglobin did drop to 9.4. Otherwise patient is being current on IV steroids and antibiotics. Blood cultures showed Streptococcus species. Ceftriaxone was added. Laboratory data showed WBC 2.4 hemoglobin 9.4 and platelets 342 Sodium 132 potassium 4.2 chloride 107 bicarb is 24 BUN 36 and creatinine 1.27 and A1c level is 6.2. Pulmonary is on board. Consulted general surgery due to GI bleed. Action current medications reviewed. Objective - Vital Signs Vital signs: Vital Signs Temp 97.7 F 09/14/21 12:31 Pulse 97 09/14/21 12:31 Resp 22 09/14/21 12:31 BP 127/56 09/14/21 12:31 Pulse Ox 90 L 09/14/21 12:31 FiO2 40 09/13/21 14:51 Intake & Output 09/13/21 09/14/21 09/14/21 18:59 06:59 18:59 Intake Total 250 30 Output Total 600 Balance 250 -570 Weight 72.575 kg Intake: IV 10 30 Invasive Line 1 10 30 Oral 240 Output: Urine 600 Other: Voiding Method Bedside Commode # Voids 2 1 # Bowel Movements 1 - Exam PHYSICAL EXAMINATION: Patient is lying in the bed comfortably, no acute distress, awake alert and oriented.. HEENT: Normocephalic. Neck is supple. Pupils reactive. Nostrils clear. Oral cavity is moist. Neck reveals no JVD, carotid bruits, or thyromegaly. CHEST EXAMINATION: Trachea is central. Symmetrical expansion. Bibasilar crac kles and mild expiratory wheeze.. CARDIAC: Normal S1, S2 with no gallops. No murmurs ABDOMEN: Soft. Bowel sounds present. Nontender. No organomegaly. No abdominal bruits. Extremities: reveal no edema. No clubbing or cyanosis Neurologically awake, alert, oriented x3 with well-coordinated movements. No focal deficits noted Skin: No rash or skin lesions. Psychiatric: Coperative. Nonsuicidal, anxious. Musculoskeletal: No joint swelling or deformity. Normal range of motion. - Labs CBC & Chem 7: 09/16/21 07:05 09/16/21 07:05 Labs: Abnormal Lab Results - Last 24 Hours (Table) 09/13/21 09/13/21 09/13/21 Range/Units 15:22 16:42 17:28 WBC (3.8-10.6) k/uL RBC (3.80-5.40) m/uL Hgb (11.4-16.0) gm/dL Hct (34.0-46.0) % MCV (80.0-100.0) fL MCHC (31.0-37.0) g/dL RDW (11.5-15.5) % Lymphocytes # (Manual) (1.0-4.8) k/uL Macrocytosis BUN (7-17) mg/dL Creatinine (0.52-1.04) mg/dL Glucose (74-99) mg/dL POC Glucose (mg/dL) 195 H (70-110) mg/dL Hemoglobin A1c (0.0-6.0) % Calcium (8.4-10.2) mg/dL Troponin I 0.098 H* 0.085 H* (0.000-0.034) ng/mL 09/13/21 09/14/21 09/14/21 Range/Units 19:41 06:26 08:14 WBC (3.8-10.6) k/uL RBC (3.80-5.40) m/uL Hgb (11.4-16.0) gm/dL Hct (34.0-46.0) % MCV (80.0-100.0) fL MCHC (31.0-37.0) g/dL RDW (11.5-15.5) % Lymphocytes # (Manual) (1.0-4.8) k/uL Macrocytosis BUN (7-17) mg/dL Creatinine (0.52-1.04) mg/dL Glucose (74-99) mg/dL POC Glucose (mg/dL) 328 H 167 H (70-110) mg/dL Hemoglobin A1c 6.2 H (0.0-6.0) % Calcium (8.4-10.2) mg/dL Troponin I (0.000-0.034) ng/mL 09/14/21 09/14/21 09/14/21 Range/Units 08:14 08:14 11:48 WBC 2.4 L (3.8-10.6) k/uL RBC 2.92 L (3.80-5.40) m/uL Hgb 9.4 L D (11.4-16.0) gm/dL Hct 31.3 L (34.0-46.0) % MCV 107.1 H (80.0-100.0) fL MCHC 30.0 L (31.0-37.0) g/dL RDW 17.6 H (11.5-15.5) % Lymphocytes # (Manual) 0.77 L (1.0-4.8) k/uL Macrocytosis Marked A BUN 36 H (7-17) mg/dL Creatinine 1.27 H (0.52-1.04) mg/dL Glucose 129 H (74-99) mg/dL POC Glucose (mg/dL) 165 H (70-110) mg/dL Hemoglobin A1c (0.0-6.0) % Calcium 7.9 L (8.4-10.2) mg/dL Troponin I (0.000-0.034) ng/mL Microbiology - Last 24 Hours (Table) 09/13/21 12:15 Blood Culture Gram Stain - Preliminary Blood Blood Culture - Preliminary Streptococcus species 09/13/21 12:15 Blood Culture - Final Blood Assessment and Plan Assessment: Acute hypoxic respiratory failure requiring BiPAP on admission.Currently transitioning to nasal cannula oxygen Gram-positive cocci bacteremia Maroon-colored blood in the stool. Possible lower GI bleed. Acute blood loss anemia secondary to GI bleed Bibasilar opacities due to pneumonia Acute COPD exacerbation Elevated troponin level likely due to demand mismatch. Mild hyperkalemia due to acute kidney injury. Acute kidney injury injury likely prerenal. Microcytic anemia with hemoglobin level 11.0 GERD Diabetes type 2 insulin-dependent Hearing disorder/deafness Osteoarthritis Chronic back pain Occasional dysphagia Previous history of smoking Plan: Patient will be continued on oxygen supplementation and currently on BiPAP. Continue with duo nebs, methylprednisolone 40 mg every 6 hourly and antibiotics and above ceftriaxone and doxycycline. Follow-up repeat culture reports. Cardiology was consulted elevated troponin level and pulmonary is on board. General surgery is planning for colonoscopy possibly on Friday. Continue to monitor closely. Insulin sliding scale. Time with Patient: Greater than 30
--- NOTE | 2021-09-16 23:16 | P.PN ---
Subjective Progress Note Date: 09/15/21 Patient is a 70-year-old female with a known history of COPD on oxygen at 4 L via nasal cannula, GERD, hearing disorder/deafness, osteoarthritis, chronic back pain and left hip sciatic pain and former smoker presents to ER with complaints of shortness of breath. Patient is also having cough without much sputum production. Does have runny nose. Patient was seen in the PCPs office and was sent to ER due to shortness of breath. Denies any fever or chills. No nausea vomiting abdominal pain or diarrhea. Patient was recently diagnosed with DVT and is currently on Eliquis which she has been taking at home. On admission on admission patient was tachycardic and pulse ox 83% on 4 L oxygen via nasal cannula. Patient was placed on BiPAP. Laboratory pressure WBC 4.4 hemoglobin 11.0 and platelets 470 Sodium 138 potassium 5.2 chloride 102 bicarb is 29 BUN 36 and creatinine 1.39 and blood sugar is 181 AST 70 ALT 45 alk phos 73 and troponin 0.103 and 0.098 and 0.085 and Coronavirus PCR, influenza a and B PCR not detected. Chest x-ray showed persistent bibasilar opacities which are not significantly c hanged from recent stent stent placed but new from remote from 04/10/2020. Correlate for pneumonia and/or aspiration. COPD changes. 09/14/2021 Patient is currently sitting in the bed. Awake alert and oriented. Still having shortness of breath. BiPAP is off and patient is on nasal cannula oxygen. No complaints of chest tightness/pain. No nausea vomiting abdominal pain or diarrhea. Otherwise patient did have Bollen with bright red blood hemoglobin did drop to 9.4. Otherwise patient is being current on IV steroids and antibiotics. Blood cultures showed Streptococcus species. Ceftriaxone was added. Laboratory data showed WBC 2.4 hemoglobin 9.4 and platelets 342 Sodium 132 potassium 4.2 chloride 107 bicarb is 24 BUN 36 and creatinine 1.27 and A1c level is 6.2. Pulmonary is on board. Consulted general surgery due to GI bleed. 09/15/2021 Patient is currently more awake and oriented. Breathing status is better. No complaints of chest pain or worsening shortness of breath. Patient is on antibiotics ROCEPHIN due to Streptococcus bacteremia. Repeat cultures have been negative so far. Echocardiogram showed preserved ejection fraction and hemoglobin is fairly stable at 9.5. General surgery is planning for EGD/colonoscopy on Friday. Denies any nausea vomiting or abdominal pain or diarrhea. Tolerating oral diet. Laboratory data showed WBC 3.0 hemoglobin 9.5 MCV 112.8 platelets 462 Sodium 141 potassium 5.0 chloride 108 bicarb is 28 BUN 35 and creatinine 1.16 and calcium 8.7 Action current medications reviewed. Objective - Vital Signs Vital signs: Vital Signs Temp 97.8 F 09/15/21 17:14 Pulse 80 09/15/21 20:47 Resp 20 09/15/21 20:47 BP 112/43 09/15/21 17:14 Pulse Ox 94 L 09/15/21 16:14 FiO2 40 09/13/21 14:51 Intake & Output 09/15/21 09/15/21 09/16/21 06:59 18:59 06:59 Intake Total 622 Output Total 450 Balance -450 622 Intake: Intake, IV Titration 150 Amount Doxycycline 100 mg In 100 Sodium Chloride 0.9% 100 ml @ 100 mls/hr IVPB Q12HR [facility] Rx#:[id number] cefTRIAXone 2 gm In 50 Sodium Chloride 0.9% 50 ml @ 100 mls/hr IVPB Q24HR [facility] Rx#:[id number] Oral 472 Output: Urine 450 Other: Voiding Method Bedside Commode # Voids 1 1 - Exam PHYSICAL EXAMINATION: Patient is lying in the bed comfortably, no acute distress, awake alert and oriented.. HEENT: Normocephalic. Neck is supple. Pupils reactive. Nostrils clear. Oral cavity is moist. Neck reveals no JVD, carotid bruits, or thyromegaly. CHEST EXAMINATION: Trachea is central. Symmetrical expansion. Bibasilar crackles and mild expiratory wheeze.. CARDIAC: Normal S1, S2 with no gallops. No murmurs ABDOMEN: Soft. Bowel sounds present. Nontender. No organomegaly. No abdominal bruits. Extremities: reveal no edema. No clubbing or cyanosis Neurologically awake, alert, oriented x3 with well-coordinated movements. No focal deficits noted Skin: No rash or skin lesions. Psychiatric: Coperative. Nonsuicidal, anxious. Musculoskeletal: No joint swelling or deformity. Normal range of motion. - Labs CBC & Chem 7: 09/16/21 07:05 09/16/21 07:05 Labs: Abnormal Lab Results - Last 24 Hours (Table) 09/15/21 09/15/21 09/15/21 Range/Units 06:10 07:36 07:36 WBC 3.0 L (3.8-10.6) k/uL RBC 2.87 L (3.80-5.40) m/uL Hgb 9.5 L (11.4-16.0) gm/dL Hct 32.4 L (34.0-46.0) % MCV 112.8 H D (80.0-100.0) fL MCHC 29.4 L (31.0-37.0) g/dL RDW 18.3 H (11.5-15.5) % Plt Count 462 H (150-450) k/uL Lymphocytes # 0.5 L (1.0-4.8) k/uL Macrocytosis Marked A Chloride 108 H (98-107) mmol/L BUN 35 H (7-17) mg/dL Creatinine 1.16 H (0.52-1.04) mg/dL Glucose 121 H (74-99) mg/dL POC Glucose (mg/dL) 138 H (70-110) mg/dL 09/15/21 09/15/21 09/15/21 Range/Units 16:51 20:11 20:29 WBC (3.8-10.6) k/uL RBC (3.80-5.40) m/uL Hgb (11.4-16.0) gm/dL Hct (34.0-46.0) % MCV (80.0-100.0) fL MCHC (31.0-37.0) g/dL RDW (11.5-15.5) % Plt Count (150-450) k/uL Lymphocytes # (1.0-4.8) k/uL Macrocytosis Chloride (98-107) mmol/L BUN (7-17) mg/dL Creatinine (0.52-1.04) mg/dL Glucose (74-99) mg/dL POC Glucose (mg/dL) 146 H 68 L 68 L (70-110) mg/dL Microbiology - Last 24 Hours (Table) 09/13/21 12:30 Blood Culture - Preliminary Blood No Growth after 48 hours 09/13/21 12:15 Blood Culture Gram Stain - Final Blood Blood Culture - Final Alpha Hemolytic Streptococcus Assessment and Plan Assessment: Acute hypoxic respiratory failure requiring BiPAP on admission.Currently transitioning to nasal cannula oxygen Gram-positive cocci bacteremia Maroon-colored blood in the stool. Possible lower GI bleed. Acute blood loss anemia secondary to GI bleed Bibasilar opacities due to pneumonia Acute COPD exacerbation Elevated troponin level likely due to demand mismatch. Mild hyperkalemia due to acute kidney injury. Acute kidney injury injury likely prerenal. Microcytic anemia with hemoglobin level 11.0 GERD Diabetes type 2 insulin-dependent Hearing disorder/deafness Osteoarthritis Chronic back pain Occasional dysphagia Previous history of smoking Plan: Patient will be continued on oxygen supplementation and currently on BiPAP. Continue with duo nebs, methylprednisolone 40 mg every 6 hourly and antibiotics and above ceftriaxone and doxycycline. Follow-up repeat culture reports. Cardiology was consulted elevated troponin level and pulmonary is on board. General surgery is planning for colonoscopy possibly on Friday. Continue to monitor closely. Insulin sliding scale. Time with Patient: Greater than 30
--- NOTE | 2021-09-16 23:19 | P.PN ---
Subjective Progress Note Date: 09/16/21 Patient is a 70-year-old female with a known history of COPD on oxygen at 4 L via nasal cannula, GERD, hearing disorder/deafness, osteoarthritis, chronic back pain and left hip sciatic pain and former smoker presents to ER with complaints of shortness of breath. Patient is also having cough without much sputum production. Does have runny nose. Patient was seen in the PCPs office and was sent to ER due to shortness of breath. Denies any fever or chills. No nausea vomiting abdominal pain or diarrhea. Patient was recently diagnosed with DVT and is currently on Eliquis which she has been taking at home. On admission on admission patient was tachycardic and pulse ox 83% on 4 L oxygen via nasal cannula. Patient was placed on BiPAP. Laboratory pressure WBC 4.4 hemoglobin 11.0 and platelets 470 Sodium 138 potassium 5.2 chloride 102 bicarb is 29 BUN 36 and creatinine 1.39 and blood sugar is 181 AST 70 ALT 45 alk phos 73 and troponin 0.103 and 0.098 and 0.085 and Coronavirus PCR, influenza a and B PCR not detected. Chest x-ray showed persistent bibasilar opacities which are not significantly c hanged from recent stent stent placed but new from remote from 04/10/2020. Correlate for pneumonia and/or aspiration. COPD changes. 09/14/2021 Patient is currently sitting in the bed. Awake alert and oriented. Still having shortness of breath. BiPAP is off and patient is on nasal cannula oxygen. No complaints of chest tightness/pain. No nausea vomiting abdominal pain or diarrhea. Otherwise patient did have Bollen with bright red blood hemoglobin did drop to 9.4. Otherwise patient is being current on IV steroids and antibiotics. Blood cultures showed Streptococcus species. Ceftriaxone was added. Laboratory data showed WBC 2.4 hemoglobin 9.4 and platelets 342 Sodium 132 potassium 4.2 chloride 107 bicarb is 24 BUN 36 and creatinine 1.27 and A1c level is 6.2. Pulmonary is on board. Consulted general surgery due to GI bleed. 09/15/2021 Patient is currently more awake and oriented. Breathing status is better. No complaints of chest pain or worsening shortness of breath. Patient is on antibiotics ROCEPHIN due to Streptococcus bacteremia. Repeat cultures have been negative so far. Echocardiogram showed preserved ejection fraction and hemoglobin is fairly stable at 9.5. General surgery is planning for EGD/colonoscopy on Friday. Denies any nausea vomiting or abdominal pain or diarrhea. Tolerating oral diet. Laboratory data showed WBC 3.0 hemoglobin 9.5 MCV 112.8 platelets 462 Sodium 141 potassium 5.0 chloride 108 bicarb is 28 BUN 35 and creatinine 1.16 and calcium 8.7 09/16/2021 Patient is resting in the bed. Awake alert and oriented x3. Patient is on 4 L oxygen via nasal cannula. Mentation is much improved and as well as breathing status. Repeat blood cultures have been negative. Patient is being continued on IV ceftriaxone. Patient is also on IV steroids duo nebs and Protonix. Pulmonary is on board. General surgery is planning for upper and lower endoscop y tomorrow. Laboratory test showed WBC 2.6 hemoglobin 9.4 and platelets 463 BUN 33 creatinine 1.14 and blood sugar is 108 calcium 8.8 potassium 4.8 current medications reviewed. Objective - Vital Signs Vital signs: Vital Signs Temp 97.6 F 09/16/21 15:52 Pulse 84 09/16/21 19:41 Resp 22 09/16/21 15:52 BP 153/83 09/16/21 15:52 Pulse Ox 95 09/16/21 19:29 FiO2 36 09/16/21 19:29 Intake & Output 09/16/21 09/16/21 09/17/21 06:59 18:59 06:59 Intake Total 240 318 Balance 240 318 Intake: Intake, IV Titration 200 Amount Doxycycline 100 mg In 100 Sodium Chloride 0.9% 100 ml @ 100 mls/hr IVPB Q12HR [facility] TO [facility] Rx#:[id number] cefTRIAXone 2 gm In 100 Sodium Chloride 0.9% 50 ml @ 100 mls/hr IVPB Q24HR [facility]END[facility] TO [facility] Rx#:[id number] Oral 240 118 Other: Voiding Method Bedside Commode Bedside Commode # Voids 1 1 # Bowel Movements 1 - Exam PHYSICAL EXAMINATION: Patient is lying in the bed comfortably, no acute distress, awake alert and oriented.. HEENT: Normocephalic. Neck is supple. Pupils reactive. Nostrils clear. Oral cavity is moist. Neck reveals no JVD, carotid bruits, or thyromegaly. CHEST EXAMINATION: Trachea is central. Symmetrical expansion. Bibasilar crac kles and mild expiratory wheeze.. CARDIAC: Normal S1, S2 with no gallops. No murmurs ABDOMEN: Soft. Bowel sounds present. Nontender. No organomegaly. No abdominal bruits. Extremities: reveal no edema. No clubbing or cyanosis Neurologically awake, alert, oriented x3 with well-coordinated movements. No focal deficits noted Skin: No rash or skin lesions. Psychiatric: Coperative. Nonsuicidal, anxious. Musculoskeletal: No joint swelling or deformity. Normal range of motion. - Labs CBC & Chem 7: 09/16/21 07:05 09/16/21 07:05 Labs: Abnormal Lab Results - Last 24 Hours (Table) 09/16/21 09/16/21 09/16/21 Range/Units 06:01 07:05 07:05 WBC 2.6 L (3.8-10.6) k/uL RBC 2.93 L (3.80-5.40) m/uL Hgb 9.4 L (11.4-16.0) gm/dL Hct 31.9 L (34.0-46.0) % MCV 109.0 H (80.0-100.0) fL MCHC 29.3 L (31.0-37.0) g/dL RDW 18.5 H (11.5-15.5) % Plt Count 463 H (150-450) k/uL Lymphocytes # (Manual) 0.68 L (1.0-4.8) k/uL Macrocytosis Marked A Chloride 108 H (98-107) mmol/L BUN 33 H (7-17) mg/dL Creatinine 1.14 H (0.52-1.04) mg/dL Glucose 106 H (74-99) mg/dL POC Glucose (mg/dL) 120 H (70-110) mg/dL 09/16/21 09/16/21 Range/Units 11:38 19:44 WBC (3.8-10.6) k/uL RBC (3.80-5.40) m/uL Hgb (11.4-16.0) gm/dL Hct (34.0-46.0) % MCV (80.0-100.0) fL MCHC (31.0-37.0) g/dL RDW (11.5-15.5) % Plt Count (150-450) k/uL Lymphocytes # (Manual) (1.0-4.8) k/uL Macrocytosis Chloride (98-107) mmol/L BUN (7-17) mg/dL Creatinine (0.52-1.04) mg/dL Glucose (74-99) mg/dL POC Glucose (mg/dL) 122 H 112 H (70-110) mg/dL Microbiology - Last 24 Hours (Table) 09/13/21 12:30 Blood Culture - Preliminary Blood No Growth after 72 hours 09/15/21 07:36 Blood Culture - Preliminary Blood No Growth after 24 hours Assessment and Plan Assessment: Acute hypoxic respiratory failure requiring BiPAP on admission.Currently transitioning to nasal cannula oxygen Gram-positive cocci bacteremia Maroon-colored blood in the stool. Possible lower GI bleed. Acute blood loss anemia secondary to GI bleed Bibasilar opacities due to pneumonia Acute COPD exacerbation Elevated troponin level likely due to demand mismatch. Mild hyperkalemia due to acute kidney injury. Acute kidney injury injury likely prerenal. Microcytic anemia with hemoglobin level 11.0 GERD Diabetes type 2 insulin-dependent Hearing disorder/deafness Osteoarthritis Chronic back pain Occasional dysphagia Previous history of smoking Plan: Patient will be continued on oxygen supplementation and currently on BiPAP. Continue with duo nebs, methylprednisolone 40 mg every 6 hourly and antibiotics and above ceftriaxone and doxycycline. Follow-up repeat culture reports. Cardiology was consulted elevated troponin level and pulmonary is on board. General surgery is planning for colonoscopy possibly on Friday. Continue to monitor closely. Insulin sliding scale. Time with Patient: Greater than 30
[2021-09-17] MEDS: methylPREDNISolone SOD SUCCI 40 MG/ML 1 ML VIAL IV SCH ×4 (00:15→18:02)
[2021-09-17] MEDS: NITROGLYCERIN OINT 1 INCH/GM PACKET TOPICAL SCH ×4 (00:15→18:02)
[2021-09-17] MEDS: IPRATROPIUM-ALBUTEROL 3 ML NEB INHALATION SCH ×6 (03:09→23:48)
[2021-09-17] MEDS: PANTOPRAZOLE 40 MG TABLET PO SCH (05:07)
[2021-09-17] MEDS: INSULN ASP PRT/INSULIN ASPART 100 UNIT/ML 10 ML VIAL SQ SCH ×2 (06:09→16:42)
[2021-09-17 06:11] LABS: Glucose,Whole Blood 123 mg/dL (70-110)
[2021-09-17] MEDS: INSULIN ASPART (NovoLOG) 100 UNIT/ML VIAL SQ SCH ×4 (06:11→21:04)
[2021-09-17] MEDS: SYMBICORT 160-4.5 MCG INHALER INHALATION SCH ×2 (07:44→19:52)
[2021-09-17 07:50] LABS: Anisocytosis Slight; Basophils % (A) 0 %; Eosinophils % (A) 0 %; HGB 8.6 gm/dL (11.4-16.0); Hypochromasia Marked; Lymphocytes # (A) 0.5 k/uL (1.0-4.8); Lymphocytes % (A) 30 %; MCH 32.2 pg (25.0-35.0); MCHC 30.6 g/dL (31.0-37.0); MCV 105.5 fL (80.0-100.0); Mean Platelet Volume 7.4; Monocytes % (A) 2 %; Neutrophils # (A) 1.1 k/uL (1.3-7.7); Neutrophils % (A) 66 %; Platelet Count 400 k/uL (150-450); RBC 2.66 m/uL (3.80-5.40); RDW 17.9 % (11.5-15.5); WBC 1.7 k/uL (3.8-10.6)
[2021-09-17 07:58] LABS: Macrocytosis Marked
[2021-09-17 08:04] LABS: Calcium 7.7 mg/dL (8.4-10.2); Magnesium 1.6 mg/dL (1.6-2.3); Potassium 4.3 mmol/L (3.5-5.1)
[2021-09-17] MEDS: DOXYCYCLINE 100 MG in SODIUM CHLORIDE 0.9% 100 ML IVPB SCH ×2 (09:57→21:03)
[2021-09-17] MEDS ORDERED: Magnesium Replacement Protocol 1 EACH MISC MISCELLANE PRN (10:22)
[2021-09-17 11:20] LABS: Glucose,Whole Blood 117 mg/dL (70-110)
--- NOTE | 2021-09-17 11:39 | P.PN ---
Subjective This is a 70-year-old female with a past medical history significant for DVT, COPD, and home oxygen use. Patient does not follow with a tobacco roller. We have been asked to see the patient in consultation for abnormal troponins. Patient presented to the ER after being seen at her PCP office. She was found to be hypoxic. Per ER documentation, patients oxygen saturations were in the 70s. The patient was placed on a BiPAP in the ER. Patient also found to be anemia and is being evaluated by GI/Surgery. Patient seen and examined at bedside, no acute distress. She denies any chest pain. Her shortness of breath has improved. Denies any bleeding. Echocardiogram revealed EF 6065%, mildly increased septal wall thickness, mild tricuspid regurgitation Labs: WBC 1.7, Hgb 8.6, sodium 138, potassium 4.3, BUN 28, serum creatinine 1.03 PHYSICAL EXAM: VITAL SIGNS: Reviewed. GENERAL: Well-developed in no acute distress. HEENT: Head is normocephalic. Pupils are equal, round. Sclerae anicteric. Mucous membranes of the mouth are moist. Neck supple. No JVD or thyromegaly LUNGS: Respirations even and unlabored. Lungs with decreased air exchange bilaterally HEART: Regular rate and rhythm. S1 and S2 heard. ABDOMEN: Soft. Nondistended. Nontender. EXTREMITIES: Normal range of motion. No clubbing or cyanosis. Peripheral pulses intact. No lower extremity edema NEUROLOGIC: Awake and alert. Oriented x 3. ASSESSMENT: Shortness of breath Anemia Acute on chronic hypoxic respiratory failure History of COPD with home oxygen use History of DVT, on Eliquis currently on hold Abnormal troponins, likely secondary to type II MS secondary to oxygen supply and demand mismatch secondary to hypoxia, acute coronary syndrome ruled out PLAN: No further changes from a cardiology perspective. Plan for EGD and colonoscopy today with surgery Nurse practitioner note has been reviewed by physician. Signing provider agrees with the documented findings, assessment, and plan of care Objective - Vital Signs Vital signs: Vital Signs Temp 97.6 F 09/16/21 15:52 Pulse 65 09/16/21 15:52 Resp 22 09/16/21 15:52 BP 153/83 09/16/21 15:52 Pulse Ox 98 09/16/21 15:52 FiO2 40 09/13/21 14:51 Intake & Output 09/16/21 09/16/2109/17/22 06:59 18:59 06:59 Intake Total 240 318 Balance 240 318 Intake: Intake, IV Titration 200 Amount Doxycycline 100 mg In 100 Sodium Chloride 0.9% 100 ml @ 100 mls/hr IVPB Q12HR [facility] Rx#:[id number] cefTRIAXone 2 gm In 100 Sodium Chloride 0.9% 50 ml @ 100 mls/hr IVPB Q24HR [facility] Rx#:[id number] Oral 240 118 Other: Voiding Method Bedside Commode Bedside Commode # Voids 1 1 - Labs CBC & Chem 7: 09/17/21 07:14 09/17/21 07:14 Labs: Abnormal Lab Results - Last 24 Hours (Table) 09/15/21 09/15/21 09/16/21 Range/Units 20:11 20:29 06:01 WBC (3.8-10.6) k/uL RBC (3.80-5.40) m/uL Hgb (11.4-16.0) gm/dL Hct (34.0-46.0) % MCV (80.0-100.0) fL MCHC (31.0-37.0) g/dL RDW (11.5-15.5) % Plt Count (150-450) k/uL Lymphocytes # (Manual) (1.0-4.8) k/uL Macrocytosis Chloride (98-107) mmol/L BUN (7-17) mg/dL Creatinine (0.52-1.04) mg/dL Glucose (74-99) mg/dL POC Glucose (mg/dL) 68 L 68 L 120 H (70-110) mg/dL 09/16/21 09/16/21 09/16/21 Range/Units 07:05 07:05 11:38 WBC 2.6 L (3.8-10.6) k/uL RBC 2.93 L (3.80-5.40) m/uL Hgb 9.4 L (11.4-16.0) gm/dL Hct 31.9 L (34.0-46.0) % MCV 109.0 H (80.0-100.0) fL MCHC 29.3 L (31.0-37.0) g/dL RDW 18.5 H (11.5-15.5) % Plt Count 463 H (150-450) k/uL Lymphocytes # (Manual) 0.68 L (1.0-4.8) k/uL Macrocytosis Marked A Chloride 108 H (98-107) mmol/L BUN 33 H (7-17) mg/dL Creatinine 1.14 H (0.52-1.04) mg/dL Glucose 106 H (74-99) mg/dL POC Glucose (mg/dL) 122 H (70-110) mg/dL Microbiology - Last 24 Hours (Table) 09/13/21 12:30 Blood Culture - Preliminary Blood No Growth after 72 hours 09/15/21 07:36 Blood Culture - Preliminary Blood No Growth after 24 hours
[2021-09-17] MEDS ORDERED: IV FLUID CONTINUATION 1,000 ML IV ONE ×2 (13:30)
[2021-09-17] MEDS ORDERED: PROPOFOL 10 MG/ML 20 ML VIAL IV ONE (13:34)
[2021-09-17] MEDS ORDERED: LIDOCAINE 2% INJ 20 MG/ML (2 ML VIAL) ONE (13:34)
--- NOTE | 2021-09-17 13:34 | P.PN ---
Subjective Progress Note Date: 09/17/21 Principal diagnosis: Shortness of breath 70-year-old female patient with known history of advanced COPD. FEV1 has ranged between 30 and 35% of predicted and the patient is demented on a combination of Dulera and Spiriva on outpatient basis. The patient is known to us and she t ypically follows up with us in the office regarding her COPD and she also uses pro-air rescue inhaler on an as needed basis. The patient was referred to us for symptoms of increased shortness of breath. The patient denies having any significant cough or sputum production. No pleurisy. No hemoptysis. No chest pain. She was expressing worsening shortness of breath which was consistent with her underlying COPD. Her chest x-ray showed bibasilar opacities, essentially unchanged and the patient had no evidence of any consolidation or airspace disease. The patient blood EKG showed normal sinus mechanism without any acute ischemic changes. The patient's blood work showed a white cell count of 2.4 with hemoglobin 9.4 and a platelet count of 342. Sodium was at 139, potassium is at 4.2, BUN is at 36 with a creatinine of 1.2. Her influenza A and B screen was negative. Her: COVID 19 screening was also negative. Echo of the heart showed a normal ejection fraction of 65%, no valvular abnormalities of been noted. The patient is a smoker. She quit smoking. Months back 09/15/2021, seeing the patient for a follow-up. No major respiratory difficulties. No significant bronchospasm or wheezing on today's evaluation. A COPD exacerbation is also improving. There is a single set of blood culture that showed streptococcus species and for that reason the patient remains on IV Rocephin. The patient was also being worked up for chronic anemia. Note that on today's blood work, the white cell count is at 3 with a hemoglobin of 9.5 and platelet count of 462. Sodium is at 141 and I is a 35 and a creatinine of 1.1. The patient has a positive for hemolytic strep and a blood cultures.. Echocardiogram was also done and the patient has a preserved LV function with an ejection fraction of 6065%. As far as the anemia workup, the patient denies having any rectal bleeding. Hemoglobin was at 9.5. Endoscopy is being planned for Friday. 09/16/2021, no new complaints and the patient continues to improve. She is being treated for an acute exacerbation. She was found to have a possible culture which is alpha hemolytic strep and the patient remains on IV Rocephin. She remains on IV Solu-Medrol 40 mg every 6 hours. She is on DuoNeb nebulized she is of the clock. She is also on Symbicort. No altered mentation. No nausea or vomiting. Diarrhea or abdominal pain. The white cell count is at 2.6 hemoglobin 9.4 and platelet count of 463. BUN is a 33 with a creatinine of 1.1 and sodium level is at 140. On 09/17/2021 patient seen in follow-up on selective care unit, denies any worsening dyspnea or cough, currently on 4 L of oxygen with pulse ox of 95%, she is ambulating in the room, does not appear to be in any acute distress. Vital signs have been stable, she's been afebrile. She does get short of breath with exertion. Patient did have a positive blood culture with alpha hemolytic streptococcus on 09/13/2021, follow blood culture on 09/15/2021 remains negative thus far. Currently he remains on combination of Rocephin and doxycycline. She is breathing easier, she remains on nebulized bronchodilators and IV steroids. Patient was noted to be anemic, her hemoglobin is down to 8.6 from 11.0 on admission. She is scheduled for colonoscopy today Objective - Vital Signs Vital signs: Vital Signs Temp 97.8 F 09/17/21 12:09 Pulse 78 09/17/21 12:09 Resp 18 09/17/21 12:09 BP 144/79 09/17/21 12:09 Pulse Ox 95 09/17/21 12:09 FiO2 36 09/16/21 19:29 Intake & Output 09/16/21 09/17/21 09/17/21 18:59 06:59 18:59 Intake Total 318 20 Balance 318 20 Intake: IV 20 Invasive Line 5 20 Intake, IV Titration 200 Amount Doxycycline 100 mg In 100 Sodium Chloride 0.9% 100 ml @ 100 mls/hr IVPB Q12HR [facility] Rx#:[id number] cefTRIAXone 2 gm In 100 Sodium Chloride 0.9% 50 ml @ 100 mls/hr IVPB Q24HR [facility] Rx#:[id number] Oral 118 Other: Voiding Method Bedside Commode Bedside Commode Bedside Commode # Voids 1 1 # Bowel Movements 5 - Exam GENERAL EXAM: Alert, very pleasant, 70-year-old, on 4 L of oxygen pulse ox of 95% comfortable in no apparent distress. HEAD: Normocephalic/atraumatic. EYES: Normal reaction of pupils, equal size. Conjunctiva pink, sclera white. NOSE: Clear with pink turbinates. THROAT: No erythema or exudates. NECK: No masses, no JVD, no thyroid enlargement, no adenopathy. CHEST: No chest wall deformity. Symmetrical expansion. LUNGS: Equal air entry with no crackles, wheeze, rhonchi or dullness. CVS: Regular rate and rhythm, normal S1 and S2, no gallops, no murmurs, no rubs ABDOMEN: Soft, nontender. No hepatosplenomegaly, normal bowel sounds, no guarding or rigidity. EXTREMITIES: No clubbing, no edema, no cyanosis, 2+ pulses and upper and lower extremities. MUSCULOSKELETAL: Muscle strength and tone normal. SPINE: No scoliosis or deformity SKIN: No rashes CENTRAL NERVOUS SYSTEM: Alert and oriented -3. No focal deficits, tone is normal in all 4 extremities. PSYCHIATRIC: Alert and oriented -3. Appropriate affect. Intact judgment and insight. - Labs CBC & Chem 7: 09/17/21 07:14 09/17/21 07:14 Labs: Abnormal Lab Results - Last 24 Hours (Table) 09/16/21 09/17/21 09/17/21 Range/Units 19:44 06:09 07:14 WBC 1.7 L (3.8-10.6) k/uL RBC 2.66 L (3.80-5.40) m/uL Hgb 8.6 L (11.4-16.0) gm/dL Hct 28.0 L (34.0-46.0) % MCV 105.5 H (80.0-100.0) fL MCHC 30.6 L (31.0-37.0) g/dL RDW 17.9 H (11.5-15.5) % Neutrophils # 1.1 L (1.3-7.7) k/uL Lymphocytes # 0.5 L (1.0-4.8) k/uL Macrocytosis Marked A Carbon Dioxide (22-30) mmol/L BUN (7-17) mg/dL Glucose (74-99) mg/dL POC Glucose (mg/dL) 112 H 123 H (70-110) mg/dL Calcium (8.4-10.2) mg/dL 09/17/21 09/17/21 Range/Units 07:14 11:18 WBC (3.8-10.6) k/uL RBC (3.80-5.40) m/uL Hgb (11.4-16.0) gm/dL Hct (34.0-46.0) % MCV (80.0-100.0) fL MCHC (31.0-37.0) g/dL RDW (11.5-15.5) % Neutrophils # (1.3-7.7) k/uL Lymphocytes # (1.0-4.8) k/uL Macrocytosis Carbon Dioxide 31 H (22-30) mmol/L BUN 28 H (7-17) mg/dL Glucose 107 H (74-99) mg/dL POC Glucose (mg/dL) 117 H (70-110) mg/dL Calcium 7.7 L (8.4-10.2) mg/dL Microbiology - Last 24 Hours (Table) 09/15/21 07:36 Blood Culture - Preliminary Blood No Growth after 48 hours 09/13/21 12:30 Blood Culture - Preliminary Blood No Growth after 72 hours Assessment and Plan Plan: Assessment: Acute COPD exacerbation, no clear exacerbating factor. No clear indication of underlying pneumonia. The patient is aphasic worsening shortness of breath. Cardiac status is stable. Echocardiogram is within normal limits. Chest x-ray is not showing any acute pulmonary infiltrates or areas of consolidation. COVID 19 testing by PCR came back negative and influenza screen was also negative. Mother the patient undergoes low-dose computed tomography scan of the chest on a yearly basis and patient underwent a CAT scan of the chest and August 2021 showing some areas of focal infiltration in the posterolateral aspect of the left lung base with some nonspecific inflammatory changes also. Possibility of underlying pneumonia cannot be completely excluded based on those findings. I feel that the possibility of pneumonia is felt to be less likely. The patient is clinically stable and the patient continues to improve Advanced COPD, patient's FEV1 was around 30% Bacteremia with Streptococcus alphahemolytic Chronic hypoxic respiratory failure related to acute exacerbation of COPD Dyspnea Chronic and ongoing history of smoking History of GERD/reflux Left lower extremity DVT, on Eliquis, 2021 Benign colon polyps osteoporosis/osteoarthritis/chronic back pain chronic back pain L hip nerve pain Chronic anemia with a hemoglobin of 8.6 Plan: Continue current medical treatment Continue nebulized bronchodilators and antibiotics and IV steroids Patient is scheduled for colonoscopy today We'll continue to follow patient's clinical course I have personally seen and examined the patient, performed the documentation and the assessment and plan as written. Number of minutes spent on the visit: [10] Time with Patient: Less than 30
[2021-09-17] MEDS: MAGNESIUM SULFATE-D5W PMX 1 GM in DEXTROSE/WATER 1 100ML.BAG IVPB SCH ×2 (14:26→17:00)
[2021-09-17 16:35] LABS: Glucose,Whole Blood 216 mg/dL (70-110)
[2021-09-17 19:55] LABS: Glucose,Whole Blood 148 mg/dL (70-110)
[2021-09-17] MEDS: APIXABAN 5 MG TAB PO SCH (21:03)
[2021-09-18] MEDS: methylPREDNISolone SOD SUCCI 40 MG/ML 1 ML VIAL IV SCH ×3 (00:26→11:52)
[2021-09-18] MEDS: NITROGLYCERIN OINT 1 INCH/GM PACKET TOPICAL SCH ×2 (00:27→06:25)
[2021-09-18] MEDS: IPRATROPIUM-ALBUTEROL 3 ML NEB INHALATION SCH ×4 (03:24→15:40)
[2021-09-18 06:13] LABS: Glucose,Whole Blood 160 mg/dL (70-110)
[2021-09-18] MEDS: INSULIN ASPART (NovoLOG) 100 UNIT/ML VIAL SQ SCH ×2 (06:24→11:52)
[2021-09-18] MEDS: PANTOPRAZOLE 40 MG TABLET PO SCH (06:25)
[2021-09-18] MEDS: INSULN ASP PRT/INSULIN ASPART 100 UNIT/ML 10 ML VIAL SQ SCH (06:30)
--- NOTE | 2021-09-18 06:45 | P.PN ---
Subjective Progress Note Date: 09/17/21 Patient is a 70-year-old female with a known history of COPD on oxygen at 4 L via nasal cannula, GERD, hearing disorder/deafness, osteoarthritis, chronic back pain and left hip sciatic pain and former smoker presents to ER with complaints of shortness of breath. Patient is also having cough without much sputum production. Does have runny nose. Patient was seen in the PCPs office and was sent to ER due to shortness of breath. Denies any fever or chills. No nausea vomiting abdominal pain or diarrhea. Patient was recently diagnosed with DVT and is currently on Eliquis which she has been taking at home. On admission on admission patient was tachycardic and pulse ox 83% on 4 L oxygen via nasal cannula. Patient was placed on BiPAP. Laboratory pressure WBC 4.4 hemoglobin 11.0 and platelets 470 Sodium 138 potassium 5.2 chloride 102 bicarb is 29 BUN 36 and creatinine 1.39 and blood sugar is 181 AST 70 ALT 45 alk phos 73 and troponin 0.103 and 0.098 and 0.085 and Coronavirus PCR, influenza a and B PCR not detected. Chest x-ray showed persistent bibasilar opacities which are not significantly changed from recent stent stent placed but new from remote from 04/10/2020. Correlate for pneumonia and/or aspiration. COPD changes. 09/14/2021 Patient is currently sitting in the bed. Awake alert and oriented. Still having shortness of breath. BiPAP is off and patient is on nasal cannula oxyge n. No complaints of chest tightness/pain. No nausea vomiting abdominal pain or diarrhea. Otherwise patient did have Bollen with bright red blood hemoglobin did drop to 9.4. Otherwise patient is being current on IV steroids and antibiotics. Blood cultures showed Streptococcus species. Ceftriaxone was added. Laboratory data showed WBC 2.4 hemoglobin 9.4 and platelets 342 Sodium 132 potassium 4.2 chloride 107 bicarb is 24 BUN 36 and creatinine 1.27 and A1c level is 6.2. Pulmonary is on board. Consulted general surgery due to GI bleed. 09/15/2021 Patient is currently more awake and oriented. Breathing status is better. No complaints of chest pain or worsening shortness of breath. Patient is on antibiotics ROCEPHIN due to Streptococcus bacteremia. Repeat cultures have been negative so far. Echocardiogram showed preserved ejection fraction and hemoglobin is fairly stable at 9.5. General surgery is planning for EGD/colonoscopy on Friday. Denies any nausea vomiting or abdominal pain or diarrhea. Tolerating oral diet. Laboratory data showed WBC 3.0 hemoglobin 9.5 MCV 112.8 platelets 462 Sodium 141 potassium 5.0 chloride 108 bicarb is 28 BUN 35 and creatinine 1.16 and calcium 8.7 09/16/2021 Patient is resting in the bed. Awake alert and oriented x3. Patient is on 4 L oxygen via nasal cannula. Mentation is much improved and as well as breathing status. Repeat blood cultures have been negative. Patient is being continued on IV ceftriaxone. Patient is also on IV steroids duo nebs and Protonix. Pulmonary is on board. General surgery is planning for upper and lower endosc opy tomorrow. Laboratory test showed WBC 2.6 hemoglobin 9.4 and platelets 463 BUN 33 creatinine 1.14 and blood sugar is 108 calcium 8.8 potassium 4.8 09/17/2021 Patient is seen and evaluated and follow-up currently nothing by mouth as patient is undergoing EGD/colonoscopy with general surgery today. Cardiology and pulmonary following as well. Patient Karen is currently on hold and will discuss with cardio and surgery about resuming after scope. Hemoglobin is stable at 8.6 today and will follow up with am labs. REcommend to continue current medication regimen and will use sliding scale as needed for elevated blood sugars. Patient is currently on empiric antibiotics and IV steroids. Patient denies chest pain or worsening shortness of breath. Patient is afebrile. Patient currently NPO and will resume diet after scope. Review of systems: Constitutional: No reports of fatigue, fever, or chills Cardiovascular: No reports of chest pain or palpitations Respiratory: No reports of worsening shortness of breath, reports cough GI: No reports of nausea, vomiting, or diarrhea : No reports of dysuria or retention Neurovascular: No reports of weakness or numbness All medications have been reviewed Active Medications Acetaminophen (Acetaminophen Tab 325 Mg Tab) 650 mg PO Q6HR PRN PRN Reason: Fever and/ or Pain Last Admin: 09/16/21 08:10 Dose: 650 mg Albuterol/Ipratropium (Ipratropium-Albuterol 3 Ml Neb) 3 ml INHALATION RT-Q4H [facility] Last Admin: 09/17/21 15:31 Dose: 3 ml Budesonide/Formoterol Fumarate (Symbicort 160-4.5 Mcg Inhaler) 2 puff INHALA TION RT-BID [facility] Last Admin: 09/17/21 07:44 Dose: 2 puff Doxycycline Hyclate 100 mg/ (Sodium Chloride) 100 mls @ 100 mls/hr IVPB Q12HR [facility]; Protocol Last Admin: 09/17/21 09:57 Dose: 100 mls/hr Ceftriaxone Sodium 2 gm/ (Sodium Chloride) 50 mls @ 100 mls/hr IVPB Q24HR [facility] Last Admin: 09/17/21 08:08 Dose: 100 mls/hr Insulin Aspart (Insulin Aspart (Novolog) 100 Unit/Ml Vial) 0 unit SQ ACHS [facility]; Protocol Last Admin: 09/17/21 11:47 Dose: Not Given Insulin Aspart (Insuln Asp Prt/Insulin Aspart 100 Unit/Ml 10 Ml Vial) 20 unit SQ AC-BID [facility] Last Admin: 09/17/21 06:09 Dose: Not Given Methylprednisolone Sodium Succinate (Methylprednisolone Sod Succi 40 Mg/Ml 1 Ml Vial) 40 mg IV Q6HR [facility] Last Admin: 09/17/21 11:54 Dose: 40 mg Miscellaneous Information (Magnesium Replacement Protocol 1 Each Misc) 1 each MISCELLANE DAILY PRN; Protocol PRN Reason: Per Protocol Naloxone HCl (Naloxone 0.4 Mg/Ml 1 Ml Vial) 0.2 mg IV Q2M PRN PRN Reason: Opioid Reversal Nitroglycerin (Nitroglycerin Oint 1 Inch/Gm Packet) 1 inch TOPICAL Q6HR [facility] Last Admin: 09/17/21 11:55 Dose: 1 inch Pantoprazole Sodium (Pantoprazole 40 Mg Tablet) 40 mg PO AC-BRKFST [facility] Last Admin: 09/17/21 05:07 Dose: Not Given PHYSICAL EXAMINATION: Patient is sitting up in the bed comfortably, awake alert and oriented.. HEENT: Normocephalic. Neck is supple. Pupils reactive. Nostrils clear. Oral cavi ty is moist. Neck reveals no JVD, carotid bruits, or thyromegaly. CHEST EXAMINATION: Trachea is central. Symmetrical expansion. Bibasilar crackles and mild expiratory wheeze.. CARDIAC: Normal S1, S2 muffled ABDOMEN: Soft. Bowel sounds present. Nontender. No organomegaly. No abdominal bruits. Extremities: reveal no edema. No clubbing or cyanosis Neurologically awake, alert, oriented x3 with well-coordinated movements. No focal deficits noted Skin: No rash or skin lesions. Psychiatric: Cooperative. Non-suicidal, anxious. Musculoskeletal: No joint swelling or deformity. Normal range of motion. Assessment: Acute hypoxic respiratory failure requiring BiPAP on admission.Currently on nasal cannula oxygen Gram-positive cocci bacteremia Maroon-colored blood in the stool. Possible lower GI bleed. Acute blood loss anemia secondary to GI bleed Bibasilar opacities due to pneumonia Acute COPD exacerbation Elevated troponin level likely due to demand mismatch. Mild hyperkalemia due to acute kidney injury. Acute kidney injury injury likely prerenal. Microcytic anemia with hemoglobin level 11.0 GERD Diabetes type 2 insulin-dependent Hearing disorder/deafness Osteoarthritis Chronic back pain Occasional dysphagia Previous history of smoking Plan: Patient is scheduled for EGD/colonocsopy with general surgery today. Eliquis is on hold. Hemoglobin is 8.6 today with no active bleeding noted Patient will be continued on oxygen supplementation and currently off BiPAP. Continue with duo nebs, IV steroids 40 mg every 6 hourly and antibiotics and above ceftriaxone and doxycycline. Cardiology following for elevated troponin level and pulmonary is on board. Recommend am labs and continue with accuchecks and sliding scale Continue to monitor closely. Due to multiple complex medical issues, prognosis is guarded. The impression and plan of care has been dictated by Carmen Yeboah, Nurse Practitioner as directed. Dr. Get MD I have performed a history and examination and MDM of this patient, discussed the same with the dictator, and agree with the dictator's assessment and plan as written ,documented as a scribe. Based on total visit time, I have performed more than 50% of the visit. Objective - Vital Signs Vital signs: Vital Signs Temp 98.3 F 09/17/21 08:07 Pulse 72 09/17/21 08:07 Resp 18 09/17/21 08:07 BP 117/62 09/17/21 08:07 Pulse Ox 95 09/17/21 08:07 FiO2 36 09/16/21 19:29 Intake & Output 09/16/21 09/17/21 09/17/21 18:59 06:59 18:59 Intake Total 318 20 Balance 318 20 Intake: IV 20 Invasive Line 5 20 Intake, IV Titration 200 Amount Doxycycline 100 mg In 100 Sodium Chloride 0.9% 100 ml @ 100 mls/hr IVPB Q12HR [facility] Rx#:[id number] cefTRIAXone 2 gm In 100 Sodium Chloride 0.9% 50 ml @ 100 mls/hr IVPB Q24HR [facility] Rx#:[id number] Oral 118 Other: Voiding Method Bedside Commode Bedside Commode Bedside Commode # Voids 1 1 # Bowel Movements 5 - Labs CBC & Chem 7: 09/17/21 07:14 09/17/21 07:14 Labs: Abnormal Lab Results - Last 24 Hours (Table) 09/16/21 09/16/21 09/17/21 Range/Units 11:38 19:44 06:09 WBC (3.8-10.6) k/uL RBC (3.80-5.40) m/uL Hgb (11.4-16.0) gm/dL Hct (34.0-46.0) % MCV (80.0-100.0) fL MCHC (31.0-37.0) g/dL RDW (11.5-15.5) % Neutrophils # (1.3-7.7) k/uL Lymphocytes # (1.0-4.8) k/uL Macrocytosis Carbon Dioxide (22-30) mmol/L BUN (7-17) mg/dL Glucose (74-99) mg/dL POC Glucose (mg/dL) 122 H 112 H 123 H (70-110) mg/dL Calcium (8.4-10.2) mg/dL 09/17/21 09/17/21 Range/Units 07:14 07:14 WBC 1.7 L (3.8-10.6) k/uL RBC 2.66 L (3.80-5.40) m/uL Hgb 8.6 L (11.4-16.0) gm/dL Hct 28.0 L (34.0-46.0) % MCV 105.5 H (80.0-100.0) fL MCHC 30.6 L (31.0-37.0) g/dL RDW 17.9 H (11.5-15.5) % Neutrophils # 1.1 L (1.3-7.7) k/uL Lymphocytes # 0.5 L (1.0-4.8) k/uL Macrocytosis Marked A Carbon Dioxide 31 H (22-30) mmol/L BUN 28 H (7-17) mg/dL Glucose 107 H (74-99) mg/dL POC Glucose (mg/dL) (70-110) mg/dL Calcium 7.7 L (8.4-10.2) mg/dL Microbiology - Last 24 Hours (Table) 09/15/21 07:36 Blood Culture - Preliminary Blood No Growth after 48 hours 09/13/21 12:30 Blood Culture - Preliminary Blood No Growth after 72 hours
[2021-09-18] MEDS: APIXABAN 5 MG TAB PO SCH (08:04)
[2021-09-18 08:18] LABS: Anisocytosis Slight; Basophils % (A) 0 %; Eosinophils % (A) 0 %; HCT 30.4 % (34.0-46.0); HGB 9.3 gm/dL (11.4-16.0); Hypochromasia Marked; Lymphocytes # (A) 0.4 k/uL (1.0-4.8); Lymphocytes % (A) 18 %; MCH 32.6 pg (25.0-35.0); MCHC 30.8 g/dL (31.0-37.0); Macrocytosis Marked; Mean Platelet Volume 7.5; Monocytes # (A) 0.1 k/uL (0-1.0); Monocytes % (A) 2 %; Neutrophils # (A) 1.5 k/uL (1.3-7.7); Neutrophils % (A) 76 %; Platelet Count 471 k/uL (150-450); RBC 2.86 m/uL (3.80-5.40); RDW 18.4 % (11.5-15.5)
[2021-09-18] MEDS: SYMBICORT 160-4.5 MCG INHALER INHALATION SCH (08:38)
[2021-09-18 08:56] LABS: Calcium 8.2 mg/dL (8.4-10.2); Magnesium 2.4 mg/dL (1.6-2.3); Potassium 4.6 mmol/L (3.5-5.1)
[2021-09-18 09:12] VITALS: RESP 18
[2021-09-18] MEDS: DOXYCYCLINE 100 MG in SODIUM CHLORIDE 0.9% 100 ML IVPB SCH (09:59)
[2021-09-18] MEDS: ACETAMINOPHEN TAB 325 MG TAB PO PRN (10:00)
--- NOTE | 2021-09-18 10:07 | XR ---
EXAMINATION TYPE: XR chest 1V portable DATE OF EXAM: 09/18/2021 COMPARISON: 09/13/2021 HISTORY: Shortness of breath TECHNIQUE: Single frontal view of the chest is obtained. FINDINGS: Diffuse emphysematous changes with bilateral consolidation and small effusion greater on t he right. Coarsened interstitium. No sizable pneumothorax. Atherosclerotic change aorta. Heart size n ormal. IMPRESSION: 1. COPD with bilateral infiltrate and small effusion greater on the right correlate for pneumonia. CH F superimposed on a background of diffuse emphysematous change in the differential diagnosis.
[2021-09-18 11:47] LABS: Glucose,Whole Blood 221 mg/dL (70-110)
[2021-09-18 12:23] VITALS: BP 144/78; TEMP 97.8
--- NOTE | 2021-09-18 12:32 | P.PN ---
Progress Note - Text Progress Note Date: 09/18/21 Patient remained stable. She's had no evidence of GI bleed. Her hemoglobin is in the 9 range. She underwent endoscopy yesterday. On exam vital signs are stable. Abdomen soft. Abdomen is nontender. Chronic anemia. Patient is stable for discharge from surgical standpoint.
--- NOTE | 2021-09-18 12:54 | P.PN ---
Subjective Progress Note Date: 09/18/21 Principal diagnosis: Acute on chronic hypoxic referral failure secondary to acute exacerbation of COPD 70-year-old female patient with known history of advanced COPD. FEV1 has ranged between 30 and 35% of predicted and the patient is demented on a combination of Dulera and Spiriva on outpatient basis. The patient is known to us and she typically follows up with us in the office regarding her COPD and she also uses pro-air rescue inhaler on an as needed basis. The patient was referred to us for symptoms of increased shortness of breath. The patient denies having any significant cough or sputum production. No pleurisy. No hemoptysis. No chest pain. She was expressing worsening shortness of breath which was consistent with her underlying COPD. Her chest x-ray showed bibasilar opacities, essentially unchanged and the patient had no evidence of any consolidation or airspace disease. The patient blood EKG showed normal sinus mechanism without any acute ischemic changes. The patient's blood work showed a white cell count of 2.4 with hemoglobin 9.4 and a platelet count of 342. Sodium was at 139, potassium is at 4.2, BUN is at 36 with a creatinine of 1.2. Her influenza A and B screen was negative. Her: COVID 19 screening was also negative. Echo of the heart showed a normal ejection fraction of 65%, no valvular abnormalities of been noted. The patient is a smoker. She quit smoking. Months back 09/15/2021, seeing the patient for a follow-up. No major respiratory difficulties. No significant bronchospasm or wheezing on today's evaluation. A COPD exacerbation is also improving. There is a single set of blood culture that showed streptococcus species and for that reason the patient remains on IV Rocephin. The patient was also being worked up for chronic anemia. Note that on today's blood work, the white cell count is at 3 with a hemoglobin of 9.5 and platelet count of 462. Sodium is at 141 and I is a 35 and a creatinine of 1.1. The patient has a positive for hemolytic strep and a blood cultures.. Echocardiogram was also done and the patient has a preserved LV function with an ejection fraction of 6065%. As far as the anemia workup, the patient denies having any rectal bleeding. Hemoglobin was at 9.5. Endoscopy is being planned for Friday. 09/16/2021, no new complaints and the patient continues to improve. She is being treated for an acute exacerbation. She was found to have a possible culture which is alpha hemolytic strep and the patient remains on IV Rocephin. She remains on IV Solu-Medrol 40 mg every 6 hours. She is on DuoNeb nebulized she is of the clock. She is also on Symbicort. No altered mentation. No nausea or vomiting. Diarrhea or abdominal pain. The white cell count is at 2.6 hemoglobin 9.4 and platelet count of 463. BUN is a 33 with a creatinine of 1.1 and sodium level is at 140. On 09/17/2021 patient seen in follow-up on selective care unit, denies any worsening dyspnea or cough, currently on 4 L of oxygen with pulse ox of 95%, she is ambulating in the room, does not appear to be in any acute distress. Vital signs have been stable, she's been afebrile. She does get short of breath with exertion. Patient did have a positive blood culture with alpha hemolytic streptococcus on 09/13/2021, follow blood culture on 09/15/2021 remains negative thus far. Currently he remains on combination of Rocephin and doxycycline. She is breathing easier, she remains on nebulized bronchodilators and IV steroids. Patient was noted to be anemic, her hemoglobin is down to 8.6 from 11.0 on a dmission. She is scheduled for colonoscopy today Reevaluated today on 09/18/2021, patient is doing better today, she is on 4 L nasal cannula with O2 saturation ranging between 94-96%, patient is relatively asymptomatic, she underwent EGD yesterday, and the findings were reassuring, patient is cleared from the surgical perspective to be discharged home. I reviewed her chest x-ray today, and she has chronic parenchymal changes at the bases, clinically she does not have pneumonia, and I believe the patient could be considered for discharge home as on physical examination she sounded diminished at the bases but no crackles nor rhonchi no wheezes. WBC count however is 2.0 hemoglobin is 9.3 left lites are normal BUN is 36 creatinine is 1.05 Objective - Vital Signs Vital signs: Vital Signs Temp 97.8 F 09/18/21 12:23 Pulse 86 09/18/21 12:37 Resp 18 09/18/21 12:23 BP 144/78 09/18/21 12:23 Pulse Ox 94 L 09/18/21 12:23 FiO2 36 09/16/21 19:29 Intake & Output 09/17/21 09/18/21 09/18/21 18:59 06:59 18:59 Intake Total 740 180 180 Balance 740 180 180 Intake: IV 200 Oral 540 180 180 Other: Voiding Method Bedside Commode Toilet Toilet Bedside Commode Bedside Commode # Voids 2 1 # Bowel Movements 1 - Exam Physical Exam: Revealed a 70-year-old female in no distress, on 4 L nasal cannula. Head: Atraumatic, normocephalic. HEENT:[Neck is supple.] [No neck masses.] [No thyromegaly.] [No JVD.] Chest: [Diminished breath sounds at the bases no crackles or rhonchi or wheezes. Cardiac Exam: [Normal S1 and S2, no S3 gallop, no murmur.] Abdomen: [Soft, nontender, no megaly, no rebound, no guarding, normal bowel sounds.] Extremities: [No clubbing, no edema, no cyanosis.] Neurological Exam: [No focal neurologic deficit.] Alert oriented 3. Psychiatric: Normal mood, affect and normal mental status examination. Skin: No rashes. - Labs CBC & Chem 7: 09/18/21 07:19 09/18/21 07:19 Labs: Abnormal Lab Results - Last 24 Hours (Table) 09/17/21 09/17/21 09/18/21 Range/Units 16:34 19:42 06:02 WBC (3.8-10.6) k/uL RBC (3.80-5.40) m/uL Hgb (11.4-16.0) gm/dL Hct (34.0-46.0) % MCV (80.0-100.0) fL MCHC (31.0-37.0) g/dL RDW (11.5-15.5) % Plt Count (150-450) k/uL Lymphocytes # (1.0-4.8) k/uL Macrocytosis BUN (7-17) mg/dL Creatinine (0.52-1.04) mg/dL Glucose (74-99) mg/dL POC Glucose (mg/dL) 216 H 148 H 160 H (70-110) mg/dL Calcium (8.4-10.2) mg/dL Magnesium (1.6-2.3) mg/dL 09/18/21 09/18/21 09/18/21 Range/Units 07:19 07:19 11:45 WBC 2.0 L (3.8-10.6) k/uL RBC 2.86 L (3.80-5.40) m/uL Hgb 9.3 L (11.4-16.0) gm/dL Hct 30.4 L (34.0-46.0) % MCV 106.0 H (80.0-100.0) fL MCHC 30.8 L (31.0-37.0) g/dL RDW 18.4 H (11.5-15.5) % Plt Count 471 H (150-450) k/uL Lymphocytes # 0.4 L (1.0-4.8) k/uL Macrocytosis Marked A BUN 36 H (7-17) mg/dL Creatinine 1.05 H (0.52-1.04) mg/dL Glucose 103 H (74-99) mg/dL POC Glucose (mg/dL) 221 H (70-110) mg/dL Calcium 8.2 L (8.4-10.2) mg/dL Magnesium 2.4 H (1.6-2.3) mg/dL Microbiology - Last 24 Hours (Table) 09/15/21 07:36 Blood Culture - Preliminary Blood No Growth after 72 hours 09/13/21 12:30 Blood Culture - Preliminary Blood No Growth after 96 hours Assessment and Plan Assessment: Impression: Acute on chronic hypoxic respiratory failure secondary to acute exacerbation of COPD Advanced COPD, FEV1 of 30%. Tobacco dependence syndrome. History of DVT, on eliquis Chronic back pain Chronic anemia Osteoporosis Recommendation: Continue present supportive care measures Continue bronchodilators Transition to oral prednisone burst and taper over the next 2 weeks. Consider discharge planning if cleared by other consultants and follow-up with Dr. Lemus. Discharge patient on doxycycline and on redness on burst and taper as well as her usual bronchodilators. Time with Patient: Less than 30
--- NOTE | 2021-09-18 13:16 | P.PN ---
Subjective This is a 70-year-old female with a past medical history significant for DVT, COPD, and home oxygen use. 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 We have been asked to see the patient in consultation for abnormal troponins. Patient presented to the ER after being seen at her PCP office. She was found to be hypoxic. Per ER documentation, patients oxygen saturations were in the 70s. The patient was placed on a BiPAP in the ER. Patient also found to be anemia and is being evaluated by GI/Surgery. 09/17- patient underwent EGD and colonoscopy yesterday, report pending. 09/18/2021 Patient seen and examined at bedside, no acute distress. Patient with episode of chest pain this morning, midsternal. Nonradiating, nonexertional. She states it started when she was talking to her daughter on the phone. It is exacerbated with palpation to the chest. Her shortness of breath has improved. Denies any bleeding. Echocardiogram revealed EF 6065%, mildly increased septal wall thickness, mild tricuspid regurgitation PHYSICAL EXAM: VITAL SIGNS: Reviewed. GENERAL: Well-developed in no acute distress. HEENT: Head is normocephalic. Pupils are equal, round. Sclerae anicteric. Mucous membranes of the mouth are moist. Neck supple. No JVD or thyromegaly LUNGS: Respirations even and unlabored. Lungs with decreased air exchange bilaterally HEART: Regular rate and rhythm. S1 and S2 heard. ABDOMEN: Soft. Nondistended. Nontender. EXTREMITIES: Normal range of motion. No clubbing or cyanosis. Peripheral pulses intact. No lower extremity edema NEUROLOGIC: Awake and alert. Oriented x 3. ASSESSMENT: Shortness of breath Chest pain, appears musculoskeletal etiology, exacerbated by palpation to the chest, repeat troponin negative. EKG with no evidence of acute ischemia Anemia Acute on chronic hypoxic respiratory failure History of COPD with home oxygen use History of DVT, on Eliquis currently on hold Abnormal troponins, likely secondary to type II CA secondary to oxygen supply and demand mismatch secondary to hypoxia, acute coronary syndrome ruled out PLAN: No further changes from a cardiology perspective. Eliquis 5mg BID restarted per surgery Discharge per primary Please reach out with any further questions or concerns. Nurse practitioner note has been reviewed by physician. Signing provider agrees with the documented findings, assessment, and plan of care Objective - Vital Signs Vital signs: Vital Signs Temp 97.4 F L 07/26/22 03:51 Pulse 98 09/18/21 09:12 Resp 18 09/18/21 09:15 BP 135/55 09/18/21 09:12 Pulse Ox 96 09/18/21 09:12 FiO2 36 09/16/21 19:29 Intake & Output 09/17/21 09/18/21 09/18/21 18:59 06:59 18:59 Intake Total 740 180 180 Balance 740 180 180 Intake: IV 200 Oral 540 180 180 Other: Voiding Method Bedside Commode Toilet Toilet Bedside Commode Bedside Commode # Voids 2 1 # Bowel Movements 1 - Labs CBC & Chem 7: 09/18/21 07:19 09/18/21 07:19 Labs: Abnormal Lab Results - Last 24 Hours (Table) 09/17/21 09/17/21 09/18/21 Range/Units 16:34 19:42 06:02 WBC (3.8-10.6) k/uL RBC (3.80-5.40) m/uL Hgb (11.4-16.0) gm/dL Hct (34.0-46.0) % MCV (80.0-100.0) fL MCHC (31.0-37.0) g/dL RDW (11.5-15.5) % Plt Count (150-450) k/uL Lymphocytes # (1.0-4.8) k/uL Macrocytosis BUN (7-17) mg/dL Creatinine (0.52-1.04) mg/dL Glucose (74-99) mg/dL POC Glucose (mg/dL) 216 H 148 H 160 H (70-110) mg/dL Calcium (8.4-10.2) mg/dL Magnesium (1.6-2.3) mg/dL 09/18/21 09/18/21 09/18/21 Range/Units 07:19 07:19 11:45 WBC 2.0 L (3.8-10.6) k/uL RBC 2.86 L (3.80-5.40) m/uL Hgb 9.3 L (11.4-16.0) gm/dL Hct 30.4 L (34.0-46.0) % MCV 106.0 H (80.0-100.0) fL MCHC 30.8 L (31.0-37.0) g/dL RDW 18.4 H (11.5-15.5) % Plt Count 471 H (150-450) k/uL Lymphocytes # 0.4 L (1.0-4.8) k/uL Macrocytosis Marked A BUN 36 H (7-17) mg/dL Creatinine 1.05 H (0.52-1.04) mg/dL Glucose 103 H (74-99) mg/dL POC Glucose (mg/dL) 221 H (70-110) mg/dL Calcium 8.2 L (8.4-10.2) mg/dL Magnesium 2.4 H (1.6-2.3) mg/dL Microbiology - Last 24 Hours (Table) 09/15/21 07:36 Blood Culture - Preliminary Blood No Growth after 72 hours 09/13/21 12:30 Blood Culture - Preliminary Blood No Growth after 96 hours
[2021-09-18 15:52] VITALS: PULSE 85
--- NOTE | 2021-09-20 14:17 | P.DS ---
Providers Date of admission: 09/13/21 12:27 Expected date of discharge: 09/18/21 Attending physician: Nery Zee Consults: 09/13/21 12:33 Consult Physician Routine Consulting Provider: [facility] Consult Reason/Comments: elevated troponin Do you want consulting provider notified?: Already Contacted 09/13/21 13:25 Consult Physician Routine Consulting Provider: Manju Lemus Consult Reason/Comments: copd exacerbation, bipap Do you want consulting provider notified?: Yes 09/14/21 11:57 Consult Physician Urgent Consulting Provider: Justen Tao Consult Reason/Comments: gi bleed/ bright red blood per rectum Do you want consulting provider notified?: Yes Primary care physician: Carolyn Rosenberg Hospital Course: Final diagnosis Acute hypoxic respiratory failure requiring BiPAP on admission Gram-positive cocci bacteremia Maroon-colored blood in the stool. Possible lower GI bleed. Acute blood loss anemia secondary to GI bleed Bibasilar opacities due to pneumonia Acute COPD exacerbation Elevated troponin level likely due to demand mismatch. Mild hyperkalemia due to acute kidney injury. Acute kidney injury injury likely prerenal. Microcytic anemia with hemoglobin level 11.0 GERD Diabetes type 2 insulin-dependent Hearing disorder/deafness Osteoarthritis Chronic back pain Occasional dysphagia Previous history of smoking Discharge disposition Patient is being discharged in a stable condition with guarded prognosis to home . Patient will follow-up with Dr. Rosenberg in the outpatient setting upon discharge. Patient is to follow-up with pulmonary along with general surgery as scheduled next week. She will continue on doxycycline twice daily for the next 1 week along with a prednisone taper. Patient has been resumed on anticoag ulant. Total time taken is greater than 35 minutes. Hospital course This is a 70-year-old female who was recently admitted with increasing shortness of breath along with cough and was at her primary care provider Dr. Rosenberg's office and was sent here to the ER for further evaluation. Patient was also questionable for GI bleed which general surgery consulted. Patient was placed on BiPAP and improved and is maintained on her chronic oxygen via nasal cannula. Patient was also being followed by general surgery and underwent EGD/colonoscopy and hemoglobin is stable and has been resumed on anticoagulant per surgery. Patient was also maintained on IV steroids along with DuoNeb's and antibiotics empirically and pulmonary has cleared for discharge to follow-up closely in the outpatient setting with oral doxycycline and a prednisone taper. Recommend repeat labs in the outpatient setting in the next 2-3 days. Currently no reports of chest pain, shortness of breath, or palpitations. Patient is afebrile. No reports of nausea or vomiting and patient is tolerating diet. Patient will be discharged home today. Guarded prognosis. Physical exam: Gen: This is a 70-year-old female awake, alert and oriented 3, well-developed, well-nourished. HEENT: Head is atraumatic, normocephalic. Pupils equal, round. Sclerae is anicteric. NECK: Supple. No JVD. No lymphadenopathy. No thyromegaly. LUNGS: Diminished breath sounds bilaterally with some scattered rhonchi noted and some mild expiratory wheezing noted as well. No intercostal retractions. HEART: S1, S2 are muffled ABDOMEN: Soft. Bowel sounds are present. No masses. No tenderness. EXTREMITIES: No pedal edema. No calf tenderness. NEUROLOGICAL: Patient is awake, alert and oriented x3. Cranial nerves 2 through 12 are grossly intact. Please refer to medication reconciliation sheet for a list of medications. The impression and plan of care has been dictated by Carmen Yeboah, Nurse Practitioner as directed. Dr. Get MD I have performed a history and examination and MDM of this patient, discussed the same with the dictator, and agree with the dictator's assessment and plan as written ,documented as a scribe. Based on total visit time, I have performed more than 50% of the visit. Patient Condition at Discharge: Stable Plan - Discharge Summary Discharge Rx Participant: No New Discharge Prescriptions: New predniSONE 10 mg PO DIRECTED #30 tab Doxycycline [Vibramycin] 100 mg PO BID 7 Days #14 cap Continue Mometasone/Formoterol [Dulera 200 Mcg-5 Mcg Inhaler] 2 puff INHALATION RT-BID Tiotropium 18 Mcg/Puff [Spiriva] 1 puff INHALATION RT-DAILY Denosumab [Prolia] 60 mg SQ Q180D Acetaminophen Tab [Tylenol] 650 mg PO Q6HR PRN tab PRN Reason: Mild Pain Or Fever > 100.5 Apixaban [Eliquis] 5 mg PO BID Albuterol Nebulized [Ventolin Nebulized] 2.5 mg INHALATION RT-QID PRN PRN Reason: Shortness Of Breath Ipratropium-Albuterol Nebulize [Duoneb 0.5 mg-3 mg/3 ml Soln] 3 ml INHALATION RT-QID 30 Days #120 each Ipratropium-Albuterol Nebulize [Duoneb 0.5 mg-3 mg/3 ml Soln] 3 ml INHALATION RT-Q4H PRN ml PRN Reason: Shortness Of Breath Or Wheezing Albuterol Sulfate [Albuterol Sulfate Hfa] 2 puff PO RT-Q6H PRN PRN Reason: Shortness Of Breath Pantoprazole [Protonix] 40 mg PO AC-BRKFST 30 Days #30 tab Discontinued Omeprazole 20 mg PO DAILY Discharge Medication List Mometasone/Formoterol [Dulera 200 Mcg-5 Mcg Inhaler] 2 puff INHALATION RT-BID 05/13/14 [History] Denosumab [Prolia] 60 mg SQ Q180D 04/10/20 [History] Tiotropium 18 Mcg/Puff [Spiriva] 1 puff INHALATION RT-DAILY 04/10/20 [History] Albuterol Nebulized [Ventolin Nebulized] 2.5 mg INHALATION RT-QID PRN 07/07/21 [History] Ipratropium-Albuterol Nebulize [Duoneb 0.5 mg-3 mg/3 ml Soln] 3 ml INHALATION R T-Q4H PRN ml 07/10/21 [Rx] Ipratropium-Albuterol Nebulize [Duoneb 0.5 mg-3 mg/3 ml Soln] 3 ml INHALATION RT-QID 30 Days #120 each 07/10/21 [Rx] Albuterol Sulfate [Albuterol Sulfate Hfa] 2 puff PO RT-Q6H PRN 08/08/21 [History] Acetaminophen Tab [Tylenol] 650 mg PO Q6HR PRN tab 08/09/21 [Rx] Apixaban [Eliquis] 5 mg PO BID 09/13/21 [History] Doxycycline [Vibramycin] 100 mg PO BID 7 Days #14 cap 09/18/21 [Rx] Pantoprazole [Protonix] 40 mg PO AC-BRKFST 30 Days #30 tab 09/18/21 [Rx] predniSONE 10 mg PO DIRECTED #30 tab 09/18/21 [Rx] Follow up Appointment(s)/Referral(s): Carolyn Rosenberg DO [Primary Care Provider] - 1-2 days (Office closed. Please call tomorrow to schedule follow up. ) Manju Lemus MD [STAFF PHYSICIAN] - 09/24/21 1:00 pm Justen Tao MD [STAFF PHYSICIAN] - 09/25/21 2:00 pm Ambulatory/Diagnostic Orders: Complete Blood Count w/diff [LAB.AMB] Time Frame: 3 Days, Location: None Selected Patient Instructions/Handouts: COPD (Chronic Obstructive Pulmonary Disease) (IP) Activity/Diet/Wound Care/Special Instructions: Activity Limited until follow-up Follow-up with primary care provider on discharge Follow-up with cardiology outpatient as needed Follow-up with pulmonary in the next 2 weeks Follow-up with general surgery for test results in the next 1 week Continue taking medications as prescribed Continue prednisone taper Continue antibiotics until finished Discharge Disposition: HOME SELF-CARE
--- NOTE | 2021-09-20 20:16 | P.OP ---
Date of Procedure: 09/17/21 Preoperative Diagnosis: Anemia Postoperative Diagnosis: Antral gastritis Normal colon Procedure(s) Performed: Colonoscopy Anesthesia: MAC Surgeon: Justen Tao Estimated Blood Loss (ml): 5 Pathology: other (Antrum) Condition: stable Disposition: PACU Description of Procedure: The patient's placed on the endoscopy table in the lateral position. She received IV sedation. The gastro-/oropharynx passed in the esophagus and stomach. Scope was placed through the pylorus. The first and second portion of the duodenum appeared normal. Scope was then brought back the antrum was mildly inflamed. A biopsies performed. The scope was unretroflexed and remainder the stomach appeared normal. The GE junction was at 40 cm. The distal esophagus appeared normal. The proximal esophagus appeared normal. Scope withdrawn for patient. Next digital rectal exam was performed. This revealed no ebonized. Flexible colonoscope was then placed patient anus passed throughout the colon. Scope barely passed beyond the left colon secondary to poor colon prep and tortuous valve. This point scope withdrawn. The descending colon had a few scattered diverticula. Scope was brought back the rectum this appeared normal. The lower endoscopy did not show any signs of GI bleed.
--- NOTE | 2021-09-21 11:33 | CDI ---
Documentation Clarification Form Date: 09/20/2021 05:08:00 PM From: Anne Marie Medrano RN, CCDS Admit Date: 09/13/2021 12:27:00 PM Patient Name: Delmy Anderson Visit Number: [id number] Discharge Date: 09/18/2021 04:29:00 PM ATTENTION: The Clinical Documentation Specialists (CDI) and [facility] Coding Staff appreciate your assistance in clarifying documentation. Please respond to the clarification below the line at the bottom and electronically sign. The CDI & [facility] Coding staff will review the response and follow-up if needed. Please note: Queries are made part of the Legal Health Record. If you have any questions, please contact the author of this message via ITS. Dr. Nery Zee Conflicting documentation has been found in the medical record. As attending physician, please provide clarification. H/P subsequent progress notes and discharge summary has bibasilar opacities due to pneumonia 09/14 Pulmonary and subsequent progress notes: Chest x-ray showed bibasilar opacities, essentially unchanged and the patient had no evidence of any consolidation or air space disease. Acute COPD exacerbation. No clear indication of underlying pneumonia. History/Risk Factors: Diabetes Mellitus, COPD, home O2, Clinical Indicators: 70-year-old female sent in by PCP concern for low oxygen saturations. She had worsening shortness of breath. 09/13 Vital signs: 106/89 124 91 % 5/L NC 09/13 CXR: Persistent bibasilar opacities which are not significantly changed from recent priors but new from remote priors from 04/10/2020. Correlate for pneumonia and/or aspiration. COPD changes Treatment: Cardiac Telemetry monitoring Monitor O2 Sat's titrate Ventolin Nebulized 2.5 MG Inhalation 09/13, Rocephin 2 GM IVPB Q 24 HRS, Doxycycline 100MG IVPB Q 12 HRS Solu-Medrol 40 MG IV Q 6 HRS (titrate per orders) Please clarify which diagnosis is most appropriate: [ ] Pneumonia ruled in [ x ] Pneumonia ruled out [ ] Other (please specify) [ ] Unable to determine (Template Last Revised: April 2020) MTDD
== END 2021-09-18 16:29 | disposition home or self-care (01) | DRG 190 ==
LOC: EC 10:22 → 3SCARD 12:27
PROVIDERS: ADMIT Internal Medicine; ATTEND Internal Medicine
PROC: 5A09357 Assistance with Respiratory Ventilation, Less than 24 Consecutive Hours, Continuous Positive Airway Pressure (ICD-10-PCS; 2021-09-13)
PROC: 0DJD8ZZ Inspection of Lower Intestinal Tract, Via Natural or Artificial Opening Endoscopic (ICD-10-PCS; principal; 2021-09-17 07:55)
PROC: 0DB78ZX Excision of Stomach, Pylorus, Via Natural or Artificial Opening Endoscopic, Diagnostic (ICD-10-PCS; principal; 2021-09-17 07:55)
DX: J43.9 Emphysema, unspecified (principal); I21.A1 Myocardial infarction type 2; J96.21 Acute and chronic respiratory failure with hypoxia; D62 Acute posthemorrhagic anemia; I82.402 Acute embolism and thrombosis of unspecified deep veins of left lower extremity; N17.9 Acute kidney failure, unspecified; R47.01 Aphasia; R78.81 Bacteremia; K21.9 Gastro-esophageal reflux disease without esophagitis; Z20.822 Contact with and (suspected) exposure to COVID-19; Z87.11 Personal history of peptic ulcer disease; Z86.010 Personal history of colon polyps; H91.90 Unspecified hearing loss, unspecified ear; B95.5 Unspecified streptococcus as the cause of diseases classified elsewhere; D50.9 Iron deficiency anemia, unspecified; D53.9 Nutritional anemia, unspecified; R13.10 Dysphagia, unspecified; Z99.81 Dependence on supplemental oxygen; E11.9 Type 2 diabetes mellitus without complications; E87.5 Hyperkalemia; Z87.891 Personal history of nicotine dependence; G89.29 Other chronic pain; I48.91 Unspecified atrial fibrillation; K44.9 Diaphragmatic hernia without obstruction or gangrene; K57.90 Diverticulosis of intestine, part unspecified, without perforation or abscess without bleeding; M19.90 Unspecified osteoarthritis, unspecified site; M81.0 Age-related osteoporosis without current pathological fracture; Z79.01 Long term (current) use of anticoagulants; Z79.4 Long term (current) use of insulin; Z79.51 Long term (current) use of inhaled steroids; Z79.899 Other long term (current) drug therapy; Z80.1 Family history of malignant neoplasm of trachea, bronchus and lung; Z87.440 Personal history of urinary (tract) infections; Z88.2 Allergy status to sulfonamides
CPT/HCPCS: 36415; 43239; 45378; 71045; 80048; 80053; 81001; 83036; 83605; 83735; 84484; 85025; 85610; 85730; 87040; 87502; 87635; 88305; 93005; 93306; 94640; 94660; 94760; 96361; 96374; 96375; 99291

== ENCOUNTER → 2021-10-04 | Outpatient (CLI) | payer MEDICARE | END | disposition home or self-care (01) | LOC: LABWHC1 14:05 | PROVIDERS: ATTEND Family Medicine | DX: E87.5 Hyperkalemia (principal) | CPT/HCPCS: 36415; 84132 ==

== ENCOUNTER 2021-11-01 12:25 | Observation (INO) | payer MEDICARE ==
[2021-11-01] MEDS ORDERED: SODIUM CHLORIDE 0.9% 1,000 ML IV STA (12:45)
[2021-11-01] MEDS ORDERED: IPRATROPIUM-ALBUTEROL 3 ML NEB INHALATION STA (12:45)
[2021-11-01] MEDS ORDERED: MAGNESIUM SULFATE-D5W PMX 1 GM in DEXTROSE/WATER 1 100ML.BAG IVPB STA (12:45)
[2021-11-01] MEDS ORDERED: methylPREDNISolone SOD SUCCI 125 MG/2 ML VIAL IV STA (12:45)
[2021-11-01] MEDS ORDERED: ALBUTEROL NEBULIZED 2.5 MG/3 ML INHALATION STA (12:45)
--- NOTE | 2021-11-01 12:45 | ED ---
SOB HPI - General Chief Complaint: Shortness of Breath Stated Complaint: low blood oxygen Time Seen by Provider: 11/01/21 12:35 Source: patient Mode of arrival: ambulatory Limitations: no limitations - History of Present Illness Initial Comments: 70-year-old female with past history of COPD on 4 L home O2, DVT on Eliquis who presents emergency Department with shortness of breath. Significant other is at bedside and provides the history. States that for the past 3 days she has been wearing her 4 L at home however her oxygenation has been in the 70s. She has been using her nebulizer without any improvement. Denies cough. No chest pain. Last dose of antibiotics and steroids was when she was hospitalized in August. No history of cardiac disease. Patient is currently a nonsmoker. She denies any fevers. No sick contacts. No calf pain or swelling. Patient admits to compliance with her Eliquis and denies any missed doses. No other alleviating, precipitating modifying factors - Related Data Home Medications Medication Instructions Recorded Confirmed Mometasone/Formoterol [Dulera 200 2 puff INHALATION RT-BID 05/13/14 11/01/21 Mcg-5 Mcg Inhaler] Denosumab [Prolia] 60 mg SQ Q180D 04/10/20 11/01/21 Tiotropium 18 Mcg/Puff [Spiriva] 1 puff INHALATION RT-DAILY 04/10/20 11/01/21 Albuterol Sulfate [Albuterol 2 puff PO RT-Q6H PRN 08/08/21 11/01/21 Sulfate Hfa] Apixaban [Eliquis] 5 mg PO BID 09/13/21 11/01/21 Previous Rx's Medication Instructions Recorded Ipratropium-Albuterol Nebulize 3 ml INHALATION RT-Q4H PRN ml 07/10/21 [Duoneb 0.5 mg-3 mg/3 ml Soln] Ipratropium-Albuterol Nebulize 3 ml INHALATION RT-QID 30 Days 07/10/21 [Duoneb 0.5 mg-3 mg/3 ml Soln] #120 each Acetaminophen Tab [Tylenol] 650 mg PO Q6HR PRN tab 08/09/21 Pantoprazole [Protonix] 40 mg PO AC-BRKFST 30 Days #30 tab 09/18/21 predniSONE See Taper PO DIRECTED #40 tab 11/03/21 Allergies Allergy/AdvReac Type Severity Reaction Status Date / Time sulfamethoxazole Allergy Unknown Verified 11/01/21 13:52 [From Bactrim] trimethoprim [From Bactrim] Allergy Unknown Verified 11/01/21 13:52 Review of Systems ROS Statement: Those systems with pertinent positive or pertinent negative responses have been documented in the HPI. ROS Other: All systems not noted in ROS Statement are negative. Past Medical History Past Medical History: COPD, GERD/Reflux, Hearing Disorder / Deafness, Osteoarthritis (OA), Renal Disease Additional Past Medical History / Comment(s): Pt recently admitted to [facility] on 08/08/21 with left lower extremity DVT. 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 History of Any Multi-Drug Resistant Organisms: None Reported Past Surgical History: Hernia Repair, Hysterectomy, Tonsillectomy, Tubal Ligation Additional Past Surgical History / Comment(s): R inguinal hernia repair, colonoscopies Past Anesthesia/Blood Transfusion Reactions: No Reported Reaction, Postoperative Nausea & Vomiting (PONV) Past Psychological History: No Psychological Hx Reported Smoking Status: Former smoker Past Alcohol Use History: None Reported Past Drug Use History: None Reported - Past Family History Father Family Medical History: Cancer Additional Family Medical History / Comment(s): Lung cancer. General Exam Limitations: no limitations General appearance: alert, in distress Head exam: Present: atraumatic, normocephalic, normal inspection Eye exam: Present: normal appearance, PERRL, EOMI. Absent: scleral icterus, conjunctival injection, periorbital swelling ENT exam: Present: normal exam, mucous membranes moist Neck exam: Present: normal inspection. Absent: tenderness, meningismus, lymphadenopathy Respiratory exam: Present: respiratory distress, decreased breath sounds, other (tripoding). Absent: wheezes, rales, rhonchi, stridor Cardiovascular Exam: Present: normal rhythm, tachycardia, normal heart sounds. Absent: systolic murmur, diastolic murmur, rubs, gallop, clicks GI/Abdominal exam: Present: soft, normal bowel sounds. Absent: distended, tenderness, guarding, rebound, rigid Extremities exam: Present: normal inspection, full ROM, normal capillary refill. Absent: tenderness, pedal edema, joint swelling, calf tenderness Back exam: Present: normal inspection Neurological exam: Present: alert, oriented X3, CN II-XII intact Psychiatric exam: Present: normal affect, normal mood Skin exam: Present: warm, dry, intact, normal color. Absent: rash Course Vital Signs 11/01/21 11/01/21 11/01/21 12:29 12:30 13:03 Temperature 97.6 F Pulse Rate 117 H 105 H Respiratory 28 H 42 H Rate Blood Pressure 116/57 O2 Sat by Pulse 83 L Oximetry 11/01/21 11/01/21 11/01/21 13:05 13:14 14:17 Temperature Pulse Rate 110 H 100 85 Respiratory 36 H 24 Rate Blood Pressure 133/85 140/80 O2 Sat by Pulse 75 L 97 Oximetry 11/01/21 11/01/21 11/01/21 16:08 16:22 19:34 Temperature Pulse Rate 98 96 78 Respiratory Rate Blood Pressure O2 Sat by Pulse Oximetry 11/01/21 11/02/21 11/02/21 19:45 07:15 07:26 Temperature Pulse Rate 75 87 89 Respiratory Rate Blood Pressure O2 Sat by Pulse 94 L Oximetry 11/02/21 11/02/21 11/02/21 07:28 12:05 12:15 Temperature Pulse Rate 92 80 80 Respiratory 22 Rate Blood Pressure 136/82 O2 Sat by Pulse 94 L Oximetry 11/02/21 12:52 Temperature Pulse Rate 92 Respiratory 26 H Rate Blood Pressure 114/62 O2 Sat by Pulse 93 L Oximetry Medical Decision Making - Medical Decision Making Upon arrival patient was placed into trauma 1. She is placed on a nonrebreather and continuous pulse ox and cardiac monitoring. 12-lead EKG was obtained. Respiratory called the bedside and gives the patient DuoNeb breathing treatment followed by an albuterol treatment. Laboratory studies are conducted and reviewed. BNP is 2020 chest x-ray demonstrates some bilateral interstitial edema and tiny bilateral pleural effusions. Patient was given a dose of Lasix. Spoke with Dr. Zee who does come to the emergency room and evaluates the patient. She will be admitted with pulmonology consult - Lab Data Result diagrams: 11/03/21 08:12 11/03/21 08:12 Lab Results 11/01/21 11/01/21 11/01/21 Range/Units 13:05 13:05 13:05 WBC 3.9 (3.8-10.6) k/uL RBC 3.28 L (3.80-5.40) m/uL Hgb 10.9 L (11.4-16.0) gm/dL Hct 35.2 (34.0-46.0) % MCV 107.4 H (80.0-100.0) fL MCH 33.2 (25.0-35.0) pg MCHC 30.9 L (31.0-37.0) g/dL RDW 15.3 (11.5-15.5) % Plt Count 320 (150-450) k/uL MPV 9.4 Neutrophils % (Manual) 73 % Lymphocytes % (Manual) 21 % Monocytes % (Manual) 6 % Neutrophils # (Manual) 2.85 (1.3-7.7) k/uL Lymphocytes # (Manual) 0.82 L (1.0-4.8) k/uL Monocytes # (Manual) 0.23 (0-1.0) k/uL Nucleated RBCs 0 (0-0) /100 WBC Manual Slide Review Performed Hypochromasia Slight Macrocytosis Marked A PT 11.3 (9.0-12.0) sec INR 1.1 (<1.2) APTT 31.2 H (22.0-30.0) sec Sodium 136 L (137-145) mmol/L Potassium 4.5 (3.5-5.1) mmol/L Chloride 98 (98-107) mmol/L Carbon Dioxide 30 (22-30) mmol/L Anion Gap 8 mmol/L BUN 26 H (7-17) mg/dL Creatinine 1.38 H (0.52-1.04) mg/dL Est GFR (CKD-EPI)AfAm 45 (>60 ml/min/1.73 sqM) Est GFR (CKD-EPI)NonAf 39 (>60 ml/min/1.73 sqM) Glucose 107 H (74-99) mg/dL Plasma Lactic Acid Javier (0.7-2.0) mmol/L Calcium 8.3 L (8.4-10.2) mg/dL Total Bilirubin 0.4 (0.2-1.3) mg/dL AST 78 H (14-36) U/L ALT 66 H (4-34) U/L Alkaline Phosphatase 92 (38-126) U/L Troponin I (0.000-0.034) ng/mL NT-Pro-B Natriuret Pep pg/mL Total Protein 6.2 L (6.3-8.2) g/dL Albumin 2.9 L (3.5-5.0) g/dL 11/01/21 11/01/21 11/01/21 Range/Units 13:05 13:05 13:05 WBC (3.8-10.6) k/uL RBC (3.80-5.40) m/uL Hgb (11.4-16.0) gm/dL Hct (34.0-46.0) % MCV (80.0-100.0) fL MCH (25.0-35.0) pg MCHC (31.0-37.0) g/dL RDW (11.5-15.5) % Plt Count (150-450) k/uL MPV Neutrophils % (Manual) % Lymphocytes % (Manual) % Monocytes % (Manual) % Neutrophils # (Manual) (1.3-7.7) k/uL Lymphocytes # (Manual) (1.0-4.8) k/uL Monocytes # (Manual) (0-1.0) k/uL Nucleated RBCs (0-0) /100 WBC Manual Slide Review Hypochromasia Macrocytosis PT (9.0-12.0) sec INR (<1.2) APTT (22.0-30.0) sec Sodium (137-145) mmol/L Potassium (3.5-5.1) mmol/L Chloride (98-107) mmol/L Carbon Dioxide (22-30) mmol/L Anion Gap mmol/L BUN (7-17) mg/dL Creatinine (0.52-1.04) mg/dL Est GFR (CKD-EPI)AfAm (>60 ml/min/1.73 sqM) Est GFR (CKD-EPI)NonAf (>60 ml/min/1.73 sqM) Glucose (74-99) mg/dL Plasma Lactic Acid Javier 1.3 (0.7-2.0) mmol/L Calcium (8.4-10.2) mg/dL Total Bilirubin (0.2-1.3) mg/dL AST (14-36) U/L ALT (4-34) U/L Alkaline Phosphatase (38-126) U/L Troponin I <0.012 (0.000-0.034) ng/mL NT-Pro-B Natriuret Pep 2020 pg/mL Total Protein (6.3-8.2) g/dL Albumin (3.5-5.0) g/dL - EKG Data EKG Comments: EKG demonstrates sinus tachycardia with a rate of 107. AL interval 104. QRS 84. QTC of 382. No acute ST segment elevations or depressions Disposition Clinical Impression: COPD with exacerbation, Hypoxia Disposition: ADMITTED IP TO THIS HOSP Condition: Serious Is patient prescribed a controlled substance at d/c from ED?: No Time of Disposition: 14:44 Decision to Admit Reason: Admit from EC Decision Date: 11/01/21 Decision Time: 14:44
[2021-11-01 13:44] LABS: Albumin 2.9 g/dL (3.5-5.0); Calcium 8.3 mg/dL (8.4-10.2); Potassium 4.5 mmol/L (3.5-5.1); Total Bilirubin 0.4 mg/dL (0.2-1.3); Total Protein 6.2 g/dL (6.3-8.2)
[2021-11-01 13:47] LABS: INR 1.1 (<1.2); Partial Thromboplastin Time 31.2 sec (22.0-30.0); Prothrombin Time 11.3 sec (9.0-12.0)
[2021-11-01 13:53] LABS: HCT 35.2 % (34.0-46.0); HGB 10.9 gm/dL (11.4-16.0); Hypochromasia Slight; MCH 33.2 pg (25.0-35.0); MCHC 30.9 g/dL (31.0-37.0); MCV 107.4 fL (80.0-100.0); Macrocytosis Marked; Mean Platelet Volume 9.4; Platelet Count 320 k/uL (150-450); RBC 3.28 m/uL (3.80-5.40); RDW 15.3 % (11.5-15.5); WBC 3.9 k/uL (3.8-10.6)
--- NOTE | 2021-11-01 14:24 | XR ---
EXAMINATION TYPE: XR chest 2V DATE OF EXAM: 11/01/2021 COMPARISON: Chest x-ray September 18, 2021 and older study August 09, 2021 HISTORY: Difficulty in breathing. TECHNIQUE: Frontal and lateral views of the chest are obtained. FINDINGS: Increased interstitial markings bilaterally redemonstrated. This is more prominent from so me of the older studies. No new focal airspace opacity or pneumothorax seen bilaterally. Tiny bilater al pleural effusions on lateral view with blunting of posterior costophrenic angles redemonstrated. T he cardiac silhouette size is stable and within normal limits with atherosclerotic aortic knob. The osseous structures are demineralized. Moderate compression type fracture deformity at roughly T7 lev el redemonstrated on lateral view. IMPRESSION: Suspect some bilateral interstitial edema and tiny bilateral pleural effusions on backgr ound bilateral chronic parenchymal changes. Correlate clinically for fluid overload state.
[2021-11-01 14:27] LABS: Lymphocytes # (M) 0.82 k/uL (1.0-4.8); Monocytes # (M) 0.23 k/uL (0-1.0); Neutrophils # (M) 2.85 k/uL (1.3-7.7); Neutrophils % (M) 73 %; Nucleated Red Blood Cells 0 /100 WBC (0-0); Total Cells Counted 100
[2021-11-01] MEDS ORDERED: NALOXONE 0.4 MG/ML 1 ML VIAL IV PRN (14:47)
[2021-11-01] MEDS ORDERED: ACETAMINOPHEN TAB 325 MG TAB PO PRN (15:53)
[2021-11-01] MEDS ORDERED: IPRATROPIUM-ALBUTEROL 3 ML NEB INHALATION PRN (15:53)
[2021-11-01] MEDS ORDERED: IPRATROPIUM-ALBUTEROL 3 ML NEB INHALATION SCH (16:00)
[2021-11-01] MEDS ORDERED: FUROSEMIDE 10 MG/ML 2 ML VIAL IV ONE (16:00)
[2021-11-01] MEDS: IPRATROPIUM-ALBUTEROL 3 ML NEB INHALATION SCH ×2 (16:08→19:33)
[2021-11-01] MEDS: SYMBICORT 160-4.5 MCG INHALER INHALATION SCH (19:33)
[2021-11-01] MEDS ORDERED: APIXABAN 5 MG TAB PO SCH (21:00)
--- NOTE | 2021-11-02 00:40 | P.HPIM ---
History of Present Illness H&P Date: 11/01/21 Chief Complaint: Shortness of breath Patient is a 70-year-old female with a known history of COPD on home oxygen at 4 L via nasal cannula,, history of DVT on Eliquis hearing disorder/deafness, osteoarthritis, chronic kidney disease and chronic back pain and previous history of smoking and other multiple medical problems presents to ER with complaints of worsening shortness of breath since morning. Patient has been wearing her oxygen and for the past 4 days however pulse ox has been around 70s. Patient was using nebulizer treatments at home without much improvement. Patient was admitted to hospital in August 2021 for acute COPD exacerbation. Denied any complaints of chest pain. Cough without any sputum production. No nausea vomiting or abdominal pain or diarrhea. Chest x-ray showed suspect some bilateral interstitial edema and tiny bilateral pleural effusions on the diagram bilateral chronic parenchymal changes. Clinical correlation for fluid overload status. EKG showed sinus tachycardia with short MD interval. Laboratory data showed WBC 3.9 hemoglobin 10.9 and platelets 320 Sodium 136 potassium 4.5 chloride 98 bicarb 30 BUN 26 and creatinine 1.38 and bl ood sugar is 107 lactic acid 1.3 calcium 8.3 AST 78 ALT 66 and alk phos at 92 Troponin x1 negative and proBNP level is 2020 and albumin 2.9 and coronavirus PCR not detected. Past Medical History Past Medical History: COPD, GERD/Reflux, Hearing Disorder / Deafness, Osteoarthritis (OA), Renal Disease Additional Past Medical History / Comment(s): Pt recently admitted to [facility] on 08/08/21 with left lower extremity DVT. 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 History of Any Multi-Drug Resistant Organisms: None Reported Past Surgical History: Hernia Repair, Hysterectomy, Tonsillectomy, Tubal Ligation Additional Past Surgical History / Comment(s): R inguinal hernia repair, colonoscopies Past Anesthesia/Blood Transfusion Reactions: No Reported Reaction, Postoperative Nausea & Vomiting (PONV) Past Psychological History: No Psychological Hx Reported Smoking Status: Former smoker Past Alcohol Use History: None Reported Past Drug Use History: None Reported - Past Family History Father Family Medical History: Cancer Additional Family Medical History / Comment(s): Lung cancer. Medications and Allergies Home Medications Medication Instructions Recorded Confirmed Type Mometasone/Formoterol [Dulera 200 2 puff INHALATION RT-BID 05/13/14 11/01/21 History Mcg-5 Mcg Inhaler] Denosumab [Prolia] 60 mg SQ Q180D 04/10/20 11/01/21 History Tiotropium 18 Mcg/Puff [Spiriva] 1 puff INHALATION RT-DAILY 04/10/20 11/01/21 History Ipratropium-Albuterol Nebulize 3 ml INHALATION RT-Q4H PRN ml 07/10/21 11/01/21 Rx [Duoneb 0.5 mg-3 mg/3 ml Soln] Ipratropium-Albuterol Nebulize 3 ml INHALATION RT-QID 30 Days 07/10/21 11/01/21 Rx [Duoneb 0.5 mg-3 mg/3 ml Soln] #120 each Albuterol Sulfate [Albuterol 2 puff PO RT-Q6H PRN 08/08/21 11/01/21 History Sulfate Hfa] Acetaminophen Tab [Tylenol] 650 mg PO Q6HR PRN tab 08/09/21 11/01/21 Rx Apixaban [Eliquis] 5 mg PO BID 09/13/21 11/01/21 History Pantoprazole [Protonix] 40 mg PO AC-BRKFST 30 Days #30 tab 09/18/21 11/01/21 Rx Allergies Allergy/AdvReac Type Severity Reaction Status Date / Time sulfamethoxazole Allergy Unknown Verified 11/01/21 13:52 [From Bactrim] trimethoprim [From Bactrim] Allergy Unknown Verified 11/01/21 13:52 Physical Exam Vitals: Vital Signs Temp Pulse Resp BP Pulse Ox 11/01/21 14:17 85 24 140/80 97 11/01/21 13:14 100 11/01/21 13:05 110 H 36 H 133/85 75 L 11/01/21 13:03 105 H 11/01/21 12:30 42 H 11/01/21 12:29 97.6 F 117 H 28 H 116/57 83 L Intake and Output 11/01/21 11/01/21 11/01/21 06:59 14:59 22:59 Other: Weight 60.328 kg Results CBC & Chem 7: 11/02/21 05:26 11/02/21 05:26 Labs: Abnormal Lab Results - Last 24 Hours (Table) 11/01/21 11/01/21 11/01/21 Range/Units 13:05 13:05 13:05 RBC 3.28 L (3.80-5.40) m/uL Hgb 10.9 L (11.4-16.0) gm/dL MCV 107.4 H (80.0-100.0) fL MCHC 30.9 L (31.0-37.0) g/dL Lymphocytes # (Manual) 0.82 L (1.0-4.8) k/uL Macrocytosis Marked A APTT 31.2 H (22.0-30.0) sec Sodium 136 L (137-145) mmol/L BUN 26 H (7-17) mg/dL Creatinine 1.38 H (0.52-1.04) mg/dL Glucose 107 H (74-99) mg/dL Calcium 8.3 L (8.4-10.2) mg/dL AST 78 H (14-36) U/L ALT 66 H (4-34) U/L Total Protein 6.2 L (6.3-8.2) g/dL Albumin 2.9 L (3.5-5.0) g/dL Thrombosis Risk Factor Assmnt - DVT/VTE Prophylaxis DVT/VTE Prophylaxis: Pharmacologic Prophylaxis ordered Assessment and Plan Assessment: Acute on chronic hypoxic respiratory failure secondary to acute COPD exacerbation. Bilateral interstitial edema entirely pleural effusions. Status post 1 dose of IV Lasix in the ER. Chronic hypoxic respiratory failure secondary to COPD Advanced COPD History of smoking Acute kidney injury with creatinine 1.38 on admission Mild transaminitis History of left lower extremity DVTs in July 2021. Currently on Eliquis. Osteoarthritis Chronic low back pain Macrocytic anemia with hemoglobin level 10.9 Iron deficiency anemia DVT prophylaxis patient is already on Eliquis. Plan: Patient will be continued on oxygen supplementation via nasal cannula and titrate down to 4 L as per her home regimen. Patient was given a dose of IV Lasix in the ER. Continue with duo nebs, IV steroids and Symbicort. Gentle IV hydration due to acute kidney injury and follow-up renal function. Pulmonary is on board. Follow-up closely. Time with Patient: Greater than 30
[2021-11-02] MEDS: methylPREDNISolone SOD SUCCI 40 MG/ML 1 ML VIAL IV SCH ×4 (05:04→21:06)
[2021-11-02 05:56] LABS: HCT 35.8 % (34.0-46.0); HGB 10.5 gm/dL (11.4-16.0); Hypochromasia Marked; MCH 32.1 pg (25.0-35.0); MCHC 29.4 g/dL (31.0-37.0); MCV 109.4 fL (80.0-100.0); Macrocytosis Marked; Mean Platelet Volume 8.1; Platelet Count 333 k/uL (150-450); RBC 3.27 m/uL (3.80-5.40); RDW 14.7 % (11.5-15.5); WBC 1.9 k/uL (3.8-10.6)
[2021-11-02 05:57] LABS: Calcium 8.3 mg/dL (8.4-10.2); Potassium 4.7 mmol/L (3.5-5.1)
[2021-11-02] MEDS: IPRATROPIUM-ALBUTEROL 3 ML NEB INHALATION SCH ×4 (07:13→20:45)
[2021-11-02] MEDS: SYMBICORT 160-4.5 MCG INHALER INHALATION SCH ×2 (07:13→20:45)
[2021-11-02 07:18] LABS: Lymphocytes # (M) 0.86 k/uL (1.0-4.8); Neutrophils # (M) 1.05 k/uL (1.3-7.7); Neutrophils % (M) 55 %; Nucleated Red Blood Cells 0 /100 WBC (0-0); Total Cells Counted 100
[2021-11-02] MEDS: SODIUM CHLORIDE 0.9% 1,000 ML IV SCH ×2 (08:02→14:05)
[2021-11-02] MEDS: PANTOPRAZOLE 40 MG TABLET PO SCH (08:24)
--- NOTE | 2021-11-02 13:10 | P.CNPUL ---
History of Present Illness Consult date: 11/02/21 Requesting physician: Toro Hernandez Reason for consult: dyspnea, COPD Chief complaint: Shortness of breath History of present illness: This is a pleasant 70-year-old female patient with a known history of advanced chronic obstructive pulmonary disease with previous history of heavy tobacco dependence. Her FEV1 ranges between 30 and 35% of predicted. She is maintained on Dulera, Spiriva and albuterol in the outpatient setting. She has a nebulizer for treatments as well. She is also oxygen dependent on 2 L at home. She had been hospitalized for a COPD exacerbation in Augusts well. She presented here to the emergency room yesterday with complaints of increasing shortness of breath, dry nonproductive cough, wheezing. Is x-ray revealed tiny bilateral effusions on the background of chronic parenchymal changes. White count 1.9. Hemoglobin 10.5. Sodium 138. Potassium 4.7. Bicarb 28. BUN 31. Creatinine 1.20. Glucose 264. Chronic virus by PCR not detected. ProBNP 2019. Troponin negative 1. AST 70. ALT 66. She's been initiated and DuoNeb inhalations, Symbicort, IV Solu-Medrol. Anticoagulated with Eliquis. Review of Systems REVIEW OF SYSTEMS: CONSTITUTIONAL: Denies any recent significant weight loss or weight gain. EYES: Denies change in vision. EARS, NOSE, MOUTH, THROAT: Denies headaches, denies sore throat. CARDIOVASCULAR: Denies chest pain, palpitations or syncopal episodes. RESPIRATORY: Positive for shortness of breath, cough, congestion no hemoptysis. GASTROINTESTINAL: Denies change in appetite, denies abdominal pain GENITOURINARY: Denies hematuria, denies infections. MUSKULOSKELETAL: Denies pain, denies swelling. INTEGUMENTARY: Denies rash, denies eczema. NEUROLOGICAL: Denies recent memory loss, no recent seizure activity. PSYCHIATRIC: Denies anxiety, denies depression. HEMATOLOGIC/LYMPHATIC: Denies anemia, denies enlarged lymph nodes. Past Medical History Past Medical History: COPD, GERD/Reflux, Hearing Disorder / Deafness, Osteoarthritis (OA), Renal Disease Additional Past Medical History / Comment(s): Pt recently admitted to [facility] on 08/08/21 with left lower extremity DVT. 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 History of Any Multi-Drug Resistant Organisms: None Reported Past Surgical History: Hernia Repair, Hysterectomy, Tonsillectomy, Tubal Li gation Additional Past Surgical History / Comment(s): R inguinal hernia repair, colonoscopies Past Anesthesia/Blood Transfusion Reactions: No Reported Reaction, Postoperative Nausea & Vomiting (PONV) Past Psychological History: No Psychological Hx Reported Smoking Status: Former smoker Past Alcohol Use History: None Reported Past Drug Use History: None Reported - Past Family History Father Family Medical History: Cancer Additional Family Medical History / Comment(s): Lung cancer. Medications and Allergies Home Medications Medication Instructions Recorded Confirmed Type Mometasone/Formoterol [Dulera 200 2 puff INHALATION RT-BID 05/13/14 11/01/21 History Mcg-5 Mcg Inhaler] Denosumab [Prolia] 60 mg SQ Q180D 04/10/20 11/01/21 History Tiotropium 18 Mcg/Puff [Spiriva] 1 puff INHALATION RT-DAILY 04/10/20 11/01/21 History Ipratropium-Albuterol Nebulize 3 ml INHALATION RT-Q4H PRN ml 07/10/21 11/01/21 Rx [Duoneb 0.5 mg-3 mg/3 ml Soln] Ipratropium-Albuterol Nebulize 3 ml INHALATION RT-QID 30 Days 07/10/21 11/01/21 Rx [Duoneb 0.5 mg-3 mg/3 ml Soln] #120 each Albuterol Sulfate [Albuterol 2 puff PO RT-Q6H PRN 08/08/21 11/01/21 History Sulfate Hfa] Acetaminophen Tab [Tylenol] 650 mg PO Q6HR PRN tab 08/09/21 11/01/21 Rx Apixaban [Eliquis] 5 mg PO BID 09/13/21 11/01/21 History Pantoprazole [Protonix] 40 mg PO AC-BRKFST 30 Days #30 tab 09/18/21 11/01/21 Rx Allergies Allergy/AdvReac Type Severity Reaction Status Date / Time sulfamethoxazole Allergy Unknown Verified 11/01/21 13:52 [From Bactrim] trimethoprim [From Bactrim] Allergy Unknown Verified 11/01/21 13:52 Physical Exam Vitals: Vital Signs Pulse Resp BP Pulse Ox 11/02/21 12:15 80 11/02/21 12:05 80 11/02/21 07:28 92 22 136/82 94 L 11/02/21 07:26 89 11/02/21 07:15 87 94 L 11/01/21 19:45 75 11/01/21 19:34 78 11/01/21 16:22 96 11/01/21 16:08 98 11/01/21 14:17 85 24 140/80 97 11/01/21 13:14 100 11/01/21 13:05 110 H 36 H 133/85 75 L 11/01/21 13:03 105 H GENERAL EXAM: Alert, pleasant 70-year-old female, on 4 L nasal cannula, comf ortable in no apparent distress. HEAD: Normocephalic. EYES: Normal reaction of pupils, equal size. NOSE: Clear with pink turbinates. THROAT: No erythema or exudates. NECK: No masses, no JVD. CHEST: No chest wall deformity. LUNGS: Equal air entry with mild end expiratory wheeze, diminished CVS: S1 and S2 normal with no audible murmur, regular rhythm. ABDOMEN: No hepatosplenomegaly, normal bowel sounds, no guarding or rigidity. SPINE: No scoliosis or deformity SKIN: No rashes CENTRAL NERVOUS SYSTEM: No focal deficits, tone is normal in all 4 extremities. EXTREMITIES: There is no peripheral edema. No clubbing, no cyanosis. Peripheral pulses are intact. Results - Laboratory Findings CBC and BMP: 11/02/21 05:26 11/02/21 05:26 PT/INR, D-dimer PT 11.3 sec (9.0-12.0) 11/01/21 13:05 INR 1.1 (<1.2) 11/01/21 13:05 Abnormal lab findings: Abnormal Labs 11/01/21 11/01/21 11/01/21 13:05 13:05 13:05 WBC RBC 3.28 L Hgb 10.9 L MCV 107.4 H MCHC 30.9 L Neutrophils # (Manual) Lymphocytes # (Manual) 0.82 L Macrocytosis Marked A APTT 31.2 H Sodium 136 L BUN 26 H Creatinine 1.38 H Glucose 107 H Calcium 8.3 L AST 78 H ALT 66 H Total Protein 6.2 L Albumin 2.9 L 11/02/21 11/02/21 05:26 05:26 WBC 1.9 L RBC 3.27 L Hgb 10.5 L MCV 109.4 H MCHC 29.4 L Neutrophils # (Manual) 1.05 L Lymphocytes # (Manual) 0.86 L Macrocytosis Marked A APTT Sodium BUN 31 H Creatinine 1.30 H Glucose 264 H Calcium 8.3 L AST ALT Total Protein Albumin - Diagnostic Findings Chest x-ray: image reviewed Assessment and Plan Assessment: Acute and chronic hypoxic respiratory failure secondary to an acute COPD exacerbation, no clear exacerbating factor. No clear indication of underlying pneumonia. Chest x-ray is not showing any acute pulmonary infiltrates or areas of consolidation. Some small tiny pleural effusions. Previous echocardiogram revealed preserved left ventricular systolic function. COVID 19 testing by PCR came back negative Advanced COPD, patient's FEV1 was around 30% Chronic hypoxic respiratory failure related to advanced COPD, maintained on Dulera, Spiriva, albuterol and home oxygen at 2 L Chronic smoking Acute renal failure. Current creatinine 1.30 History of GERD/reflux Left lower extremity DVT, on Eliquis, 2021 Benign colon polyps Osteoporosis/osteoarthritis/chronic back pain Chronic back pain L hip nerve pain Chronic microcytic anemia with a hemoglobin of 10.5 Plan: The patient was seen and evaluated Chest x-ray, labs and medications reviewed Continue DuoNeb inhalations, Symbicort, IV Solu-Medrol Remains anticoagulated with Eliquis Probable discharge in the a.m. We will continue to follow and make further recommendations based on her clinical status I have personally seen and examined the patient, performed the documentation and the assessment and plan as written. Number of minutes spent on the visit: 20.
[2021-11-02 17:00] LABS: Glucose,Whole Blood 281 mg/dL (70-110)
[2021-11-02 20:16] LABS: Glucose,Whole Blood 214 mg/dL (70-110)
[2021-11-02] MEDS: APIXABAN 5 MG TAB PO SCH (21:06)
[2021-11-03 03:59] VITALS: TEMP 98.1
[2021-11-03 05:54] LABS: Glucose,Whole Blood 174 mg/dL (70-110)
[2021-11-03] MEDS: methylPREDNISolone SOD SUCCI 40 MG/ML 1 ML VIAL IV SCH ×2 (06:00→14:49)
[2021-11-03] MEDS: PANTOPRAZOLE 40 MG TABLET PO SCH (06:51)
[2021-11-03] MEDS: IPRATROPIUM-ALBUTEROL 3 ML NEB INHALATION SCH ×3 (08:15→15:54)
[2021-11-03] MEDS: SYMBICORT 160-4.5 MCG INHALER INHALATION SCH (08:15)
[2021-11-03] MEDS: APIXABAN 5 MG TAB PO SCH (08:51)
[2021-11-03 09:25] LABS: HCT 30.8 % (34.0-46.0); HGB 9.2 gm/dL (11.4-16.0); Hypochromasia Marked; MCH 33.3 pg (25.0-35.0); MCHC 29.9 g/dL (31.0-37.0); MCV 111.3 fL (80.0-100.0); Macrocytosis Marked; Mean Platelet Volume 8.2; Platelet Count 350 k/uL (150-450); RBC 2.77 m/uL (3.80-5.40); RDW 15.1 % (11.5-15.5); WBC 2.7 k/uL (3.8-10.6)
[2021-11-03 09:32] LABS: Calcium 8.3 mg/dL (8.4-10.2); Potassium 5.1 mmol/L (3.5-5.1)
[2021-11-03 11:30] LABS: Lymphocytes # (M) 0.51 k/uL (1.0-4.8); Monocytes # (M) 0.03 k/uL (0-1.0); Neutrophils # (M) 2.16 k/uL (1.3-7.7); Neutrophils % (M) 80 %; Nucleated Red Blood Cells 0 /100 WBC (0-0); Total Cells Counted 100
[2021-11-03 11:31] LABS: Anisocytosis (M) Present; Poikilocytosis (M) Present
[2021-11-03 11:37] LABS: Glucose,Whole Blood 303 mg/dL (70-110)
--- NOTE | 2021-11-03 14:21 | P.PN ---
Subjective Progress Note Date: 11/03/21 This is a pleasant 70-year-old female patient with a known history of advanced chronic obstructive pulmonary disease with previous history of heavy tobacco dependence. Her FEV1 ranges between 30 and 35% of predicted. She is maintained on Dulera, Spiriva and albuterol in the outpatient setting. She has a nebulizer for treatments as well. She is also oxygen dependent on 2 L at home. She had been hospitalized for a COPD exacerbation in August well. She presented here to the emergency room yesterday with complaints of increasing shortness of breath, dry nonproductive cough, wheezing. Is x-ray revealed tiny bilateral effusions on the background of chronic parenchymal changes. White count 1.9. Hemoglobin 10.5. Sodium 138. Potassium 4.7. Bicarb 28. BUN 31. Creatinine 1.20. Glucose 264. Chronic virus by PCR not detected. ProBNP 2019. Troponin negative 1. AST 70. ALT 66. She's been initiated and DuoNeb inhalations, Symbicort, IV Solu-Medrol. Anticoagulated with Eliquis. The patient is seen today 11/03/2021 in follow-up on the selective care unit. She is currently resting comfortably in bed. Awake and alert in no acute distress. No worsening shortness of breath, cough or congestion. No fever or chills. Maintaining good O2 saturations in the 90s on 4 L/m per nasal cannula. She's afebrile. Hemodynamically stable. White count 2.7. Hemoglobin 9.2. Sodium 137. Potassium 5.1. BUN 42. Creatinine 1.34. She is continued on DuoNeb inhalations, Symbicort, IV Solu-Medrol. Anticoagulated with Eliquis. Objective - Vital Signs Vital signs: Vital Signs Temp 98.1 F 11/03/21 11:43 Pulse 86 11/03/21 13:17 Resp 20 11/03/21 11:43 BP 118/76 11/03/21 11:43 Pulse Ox 96 11/03/21 11:43 FiO2 Intake & Output 11/02/21 11/03/21 11/03/21 18:59 06:59 18:59 Intake Total 450 120 Balance 450 120 Weight 58.8 kg 59.4 kg Intake: IV 210 Invasive Line 1 10 Sodium Chloride 0.9% 1, 200 000 ml @ 50 mls/hr IV . Q[facility]H [facility] Rx#:[id number] Oral 240 120 Other: Voiding Method Toilet # Voids 1 1 - Exam GENERAL EXAM: Alert, 70-year-old female, on 4 L nasal cannula, comfortable in no apparent distress. HEAD: Normocephalic. EYES: Normal reaction of pupils, equal size. NOSE: Clear with pink turbinates. THROAT: No erythema or exudates. NECK: No masses, no JVD. CHEST: No chest wall deformity. LUNGS: Equal air entry with mild end expiratory wheeze, diminished CVS: S1 and S2 normal with no audible murmur, regular rhythm. ABDOMEN: No hepatosplenomegaly, normal bowel sounds, no guarding or rigidity. SPINE: No scoliosis or deformity SKIN: No rashes CENTRAL NERVOUS SYSTEM: No focal deficits, tone is normal in all 4 extremities. EXTREMITIES: There is no peripheral edema. No clubbing, no cyanosis. Peripheral pulses are intact. - Labs CBC & Chem 7: 11/03/21 08:12 11/03/21 08:12 Labs: Abnormal Lab Results - Last 24 Hours (Table) 11/02/21 11/02/21 11/03/21 Range/Units 16:58 20:15 05:49 WBC (3.8-10.6) k/uL RBC (3.80-5.40) m/uL Hgb (11.4-16.0) gm/dL Hct (34.0-46.0) % MCV (80.0-100.0) fL MCHC (31.0-37.0) g/dL Lymphocytes # (Manual) (1.0-4.8) k/uL Macrocytosis BUN (7-17) mg/dL Creatinine (0.52-1.04) mg/dL Glucose (74-99) mg/dL POC Glucose (mg/dL) 281 H 214 H 174 H (70-110) mg/dL Calcium (8.4-10.2) mg/dL 11/03/21 11/03/21 11/03/21 Range/Units 08:12 08:12 11:35 WBC 2.7 L (3.8-10.6) k/uL RBC 2.77 L (3.80-5.40) m/uL Hgb 9.2 L (11.4-16.0) gm/dL Hct 30.8 L (34.0-46.0) % MCV 111.3 H (80.0-100.0) fL MCHC 29.9 L (31.0-37.0) g/dL Lymphocytes # (Manual) 0.51 L (1.0-4.8) k/uL Macrocytosis Marked A BUN 42 H (7-17) mg/dL Creatinine 1.34 H (0.52-1.04) mg/dL Glucose 252 H (74-99) mg/dL POC Glucose (mg/dL) 303 H (70-110) mg/dL Calcium 8.3 L (8.4-10.2) mg/dL Assessment and Plan Assessment: Acute and chronic hypoxic respiratory failure secondary to an acute COPD exacerbation, no clear exacerbating factor. No clear indication of underlying pneumonia. Chest x-ray is not showing any acute pulmonary infiltrates or areas of consolidation. Some small tiny pleural effusions. Previous echocardiogram revealed preserved left ventricular systolic function. COVID 19 testing by PCR came back negative Advanced COPD, patient's FEV1 was around 30% Chronic hypoxic respiratory failure related to advanced COPD, maintained on Dulera, Spiriva, albuterol and home oxygen at 2 L Chronic smoking Acute renal failure. Current creatinine 1.34 History of GERD/reflux Left lower extremity DVT, on Eliquis Benign colon polyps Osteoporosis/osteoarthritis/chronic back pain Chronic back pain L hip nerve pain Chronic microcytic anemia with a hemoglobin of 10.5 Plan: The patient was seen and evaluated Labs and medications reviewed Cleared for discharge from the pulmonary standpoint Complete a prednisone taper starting at 40 mg daily 4 days Continue her home medication Remains anticoagulated with Eliquis Follow up in the office in 1 week I have personally seen and examined the patient, performed the documentation and the assessment and plan as written. Number of minutes spent on the visit: 10.
[2021-11-03] MEDS: SODIUM CHLORIDE 0.9% 1,000 ML IV SCH (14:43)
[2021-11-03 16:03] VITALS: BP 119/60; RESP 19
[2021-11-03 16:05] VITALS: PULSE 79
[2021-11-03] MEDS ORDERED: INSULIN ASPART (NovoLOG) 100 UNIT/ML VIAL SQ SCH (17:30)
--- NOTE | 2021-11-06 12:11 | CDI ---
Documentation Clarification Form Date: 11/06/21 From: Judy Pozo Admit Date: 11/01/2021 02:44:00 PM Patient Name: Delmy Anderson Visit Number: [id number] Discharge Date: 11/03/2021 05:13:00 PM ATTENTION: The Clinical Documentation Specialists (CDI) and [facility] Coding Staff appreciate your assistance in clarifying documentation. Please respond to the clarification below the line at the bottom and electronically sign. The CDI & [facility] Coding staff will review the response and follow-up if needed. Please note: Queries are made part of the Legal Health Record. If you have any questions, please contact the author of this message via ITS. Dr. Nery Zee, Unspecified CKD is documented in the H&P. Additional clarification regarding the stage of CKD is requested. History/Risk Factors: COPD/Emphysema, acute/chronic hypoxic respiratory failure, MATTHIEU, osteoporosis, chronic back pain Patients Historical BUN/CR/GFR: none available Clinical Indicators: Hx of CKD with acute kidney injury with creatinine 1.38 on admission. Current BUN/CR/GFR: BUN: 26, 31, 42 CR: 1.38, 1.30, 1.34 GFR: 39, 42, 41 Treatment: Campos IV hydration. Please clarify the stage of the CKD, if known: [ ] CKD Stage 1 (GFR > 90) [ ] CKD Stage 2 (GFR 60-89) [ x ] CKD Stage 3 (GFR 30-59) [ ] CKD Stage 3a (GFR 45-59) [ ] CKD Stage 3b (GFR 30-44) [ ] CKD Stage 4 (GFR 15-29) [ ] CKD Stage 5 (GFR <15) [ ] ESRD [ ] Other, please specify [ ] Unable to determine MTDD
--- NOTE | 2021-11-17 23:06 | P.PN ---
Subjective Progress Note Date: 11/02/21 Patient is a 70-year-old female with a known history of COPD on home oxygen at 4 L via nasal cannula,, history of DVT on Eliquis hearing disorder/deafness, osteoarthritis, chronic kidney disease and chronic back pain and previous history of smoking and other multiple medical problems presents to ER with c omplaints of worsening shortness of breath since morning. Patient has been wearing her oxygen and for the past 4 days however pulse ox has been around 70s. Patient was using nebulizer treatments at home without much improvement. Patient was admitted to hospital in August 2021 for acute COPD exacerbation. Denied any complaints of chest pain. Cough without any sputum production. No nausea vomiting or abdominal pain or diarrhea. Chest x-ray showed suspect some bilateral interstitial edema and tiny bilateral pleural effusions on the diagram bilateral chronic parenchymal changes. Clinical correlation for fluid overload status. EKG showed sinus tachycardia with short LA interval. Laboratory data showed WBC 3.9 hemoglobin 10.9 and platelets 320 Sodium 136 potassium 4.5 chloride 98 bicarb 30 BUN 26 and creatinine 1.38 and blood sugar is 107 lactic acid 1.3 calcium 8.3 AST 78 ALT 66 and alk phos at 92 Troponin x1 negative and proBNP level is 2020 and albumin 2.9 and coronavirus PCR not detected. 11/02/2021 Patient is currently lying in the bed awake alert and oriented. Breathing status is better today. Patient is on 4 L oxygen via nasal cannula. No complaints of fever or chills. Patient is being continued on IV steroids and duo nebs and pulmonary has seen the patient No nausea vomiting abdominal pain or diarrhea. Laboratory test showed WBC 1.9 hemoglobin 10.4 and platelets 333 Sodium 138 potassium 4.7 chloride 100 bicarb is 28 BUN 31 and creatinine 1.3 and blood sugar is 264. Coronavirus PCR not detected. Current medications reviewed. Objective - Vital Signs Vital signs: Vital Signs Temp 98.1 F 11/02/21 19:56 Pulse 86 11/02/21 20:59 Resp 22 11/02/21 19:56 BP 120/69 11/02/21 19:56 Pulse Ox 98 11/02/21 20:46 FiO2 Intake & Output 11/02/21 11/02/21 11/03/21 06:59 18:59 06:59 Intake Total 450 Balance 450 Weight 58.8 kg Intake: IV 210 Invasive Line 1 10 Sodium Chloride 0.9% 1, 200 000 ml @ 50 mls/hr IV . Q20H [facility] Rx#:[id number] Oral 240 Other: # Voids 1 1 - Exam GENERAL EXAM: Alert, pleasant 70-year-old female, on 4 L nasal cannula, comfortable in no apparent distress. HEAD: Normocephalic. EYES: Normal reaction of pupils, equal size. NOSE: Clear with pink turbinates. THROAT: No erythema or exudates. NECK: No masses, no JVD. CHEST: No chest wall deformity. LUNGS: Equal air entry with mild end expiratory wheeze, diminished CVS: S1 and S2 normal with no audible murmur, regular rhythm. ABDOMEN: No hepatosplenomegaly, normal bowel sounds, no guarding or rigidity. SPINE: No scoliosis or deformity SKIN: No rashes CENTRAL NERVOUS SYSTEM: No focal deficits, tone is normal in all 4 extremities. EXTREMITIES: There is no peripheral edema. No clubbing, no cyanosis. Peripheral pulses are intact. - Labs CBC & Chem 7: 11/03/21 08:12 11/03/21 08:12 Labs: Abnormal Lab Results - Last 24 Hours (Table) 11/02/21 11/02/21 11/02/21 Range/Units 05:26 05:26 16:58 WBC 1.9 L (3.8-10.6) k/uL RBC 3.27 L (3.80-5.40) m/uL Hgb 10.5 L (11.4-16.0) gm/dL MCV 109.4 H (80.0-100.0) fL MCHC 29.4 L (31.0-37.0) g/dL Neutrophils # (Manual) 1.05 L (1.3-7.7) k/uL Lymphocytes # (Manual) 0.86 L (1.0-4.8) k/uL Macrocytosis Marked A BUN 31 H (7-17) mg/dL Creatinine 1.30 H (0.52-1.04) mg/dL Glucose 264 H (74-99) mg/dL POC Glucose (mg/dL) 281 H (70-110) mg/dL Calcium 8.3 L (8.4-10.2) mg/dL 11/02/21 Range/Units 20:15 WBC (3.8-10.6) k/uL RBC (3.80-5.40) m/uL Hgb (11.4-16.0) gm/dL MCV (80.0-100.0) fL MCHC (31.0-37.0) g/dL Neutrophils # (Manual) (1.3-7.7) k/uL Lymphocytes # (Manual) (1.0-4.8) k/uL Macrocytosis BUN (7-17) mg/dL Creatinine (0.52-1.04) mg/dL Glucose (74-99) mg/dL POC Glucose (mg/dL) 214 H (70-110) mg/dL Calcium (8.4-10.2) mg/dL Assessment and Plan Assessment: Acute on chronic hypoxic respiratory failure secondary to acute COPD exacerbation. Bilateral interstitial edema entirely pleural effusions. Status post 1 dose of IV Lasix in the ER. Chronic hypoxic respiratory failure secondary to COPD Advanced COPD History of smoking Acute kidney injury with creatinine 1.38 on admission Mild transaminitis History of left lower extremity DVTs in July 2021. Currently on Eliquis. Osteoarthritis Chronic low back pain Macrocytic anemia with hemoglobin level 10.9 Iron deficiency anemia DVT prophylaxis patient is already on Eliquis. Plan: Patient will be continued on oxygen supplementation via nasal cannula and titrate down to 4 L as per her home regimen. Patient was given a dose of IV Lasix in the ER. Continue with duo nebs, IV steroids and Symbicort. Gentle IV hydration due to acute kidney injury and follow-up renal function. Pulmonary is on board. Follow-up closely. Time with Patient: Greater than 30
--- NOTE | 2021-11-17 23:16 | P.DS ---
Providers Date of admission: 11/01/21 14:44 Expected date of discharge: 11/03/21 Attending physician: Nery Zee Consults: 11/01/21 14:47 Consult Physician Urgent Consulting Provider: Kati Jara Consult Reason/Comments: acute/chronic hypoxic resp failure, aecopd Do you want consulting provider notified?: Yes Primary care physician: Carolyn Mahmood Hospital Course: Discharge diagnosis Acute on chronic hypoxic respiratory failure secondary to acute COPD exacerbation. Bilateral interstitial edema entirely pleural effusions. Status post 1 dose of IV Lasix in the ER. Chronic hypoxic respiratory failure secondary to COPD Advanced COPD History of smoking Acute kidney injury with creatinine 1.38 on admission Mild transaminitis History of left lower extremity DVTs in July 2021. Currently on Eliquis. Osteoarthritis Chronic low back pain Macrocytic anemia with hemoglobin level 10.9 Iron deficiency anemia DVT prophylaxis patient is already on Eliquis. Hospital course Patient is a 70-year-old female with a known history of COPD on home oxygen at 4 L via nasal cannula,, history of DVT on Eliquis hearing disorder/deafness, osteoarthritis, chronic kidney disease and chronic back pain and previous history of smoking and other multiple medical problems presents to ER with complaints of worsening shortness of breath since morning. Patient has been wearing her oxygen and for the past 4 days however pulse ox has been around 70s. Patient was using nebulizer treatments at home without much improvement. Patient was admitted to hospital in August 2021 for acute COPD exacerbation. Denied any complaints of chest pain. Cough without any sputum production. No nausea vomiting or abdominal pain or diarrhea. Chest x-ray showed suspect some bilateral interstitial edema and tiny bilateral pleural effusions on the diagram bilateral chronic parenchymal changes. Clinical correlation for fluid overload status. EKG showed sinus tachycardia with short MI interval. Laboratory data showed WBC 3.9 hemoglobin 10.9 and platelets 320 Sodium 136 potassium 4.5 chloride 98 bicarb 30 BUN 26 and creatinine 1.38 and blood sugar is 107 lactic acid 1.3 calcium 8.3 AST 78 ALT 66 and alk phos at 92 Troponin x1 negative and proBNP level is 2020 and albumin 2.9 and coronavirus PCR not detected. 11/02/2021 Patient is currently lying in the bed awake alert and oriented. Breathing s tatus is better today. Patient is on 4 L oxygen via nasal cannula. No complaints of fever or chills. Patient is being continued on IV steroids and duo nebs and pulmonary has seen the patient No nausea vomiting abdominal pain or diarrhea. Laboratory test showed WBC 1.9 hemoglobin 10.4 and platelets 333 Sodium 138 potassium 4.7 chloride 100 bicarb is 28 BUN 31 and creatinine 1.3 and blood sugar is 264. Coronavirus PCR not detected. 11/03/2021 Patient is currently in the select care unit. Resting in the bed. Awake alert and oriented x3. Seems comfortable. No complaints of chest pain or worsening shortness of breath. Currently on oxygen at 4 L via nasal cannula as per her home regimen. No fever no chills. Cough improved. Patient is being continued on Laboratory data showed WBC 2.7 hemoglobin 9.1 platelets 350 BUN 41 creatinine 1.34 and blood sugar is 252. B12 and folate within normal limits. Patient did improve clinically and hemodynamically stable. Cleared from pulmonary standpoint and patient wishes to be discharged home. Continue with prednisone tapering course at home. GENERAL EXAM: Alert, pleasant 70-year-old female, on 4 L nasal cannula, comfortable in no apparent distress. HEAD: Normocephalic. EYES: Normal reaction of pupils, equal size. NOSE: Clear with pink turbinates. THROAT: No erythema or exudates. NECK: No masses, no JVD. CHEST: No chest wall deformity. LUNGS: Equal air entry with mild end expiratory wheeze CVS: S1 and S2 normal with no audible murmur, regular rhythm. ABDOMEN: No hepatosplenomegaly, normal bowel sounds, no guarding or rigidity. SPINE: No scoliosis or deformity SKIN: No rashes CENTRAL NERVOUS SYSTEM: No focal deficits, tone is normal in all 4 extremities. EXTREMITIES: There is no peripheral edema. No clubbing, no cyanosis. Periphe ral pulses are intact. Vital signs: Vital Signs Temp 98.1 F 11/03/21 11:43 Pulse 86 11/03/21 13:17 Resp 20 11/03/21 11:43 BP 118/76 11/03/21 11:43 Pulse Ox 96 11/03/21 11:43 FiO2 Intake & Output 11/02/21 11/03/21 11/03/21 18:59 06:59 18:59 Intake Total 450 120 Balance 450 120 Weight 58.8 kg 59.4 kg Intake: IV 210 Invasive Line 1 10 Sodium Chloride 0.9% 1, 200 000 ml @ 50 mls/hr IV . Q20H [facility] Rx#:[id number] Oral 240 120 Other: Voiding Method Toilet # Voids 1 1 Patient Condition at Discharge: Serious Plan - Discharge Summary Discharge Rx Participant: No New Discharge Prescriptions: New RX: predniSONE See Taper PO DIRECTED #40 tab Continue RX: Mometasone/Formoterol [Dulera 200 Mcg-5 Mcg Inhaler] 2 puff INHALATION RT-BID RX: Tiotropium 18 Mcg/Puff [Spiriva] 1 puff INHALATION RT-DAILY RX: Denosumab [Prolia] 60 mg SQ Q180D RX: Acetaminophen Tab [Tylenol] 650 mg PO Q6HR PRN tab PRN Reason: Mild Pain Or Fever > 100.5 RX: Apixaban [Eliquis] 5 mg PO BID RX: Ipratropium-Albuterol Nebulize [Duoneb 0.5 mg-3 mg/3 ml Soln] 3 ml INHALATION RT-QID 30 Days #120 each RX: Ipratropium-Albuterol Nebulize [Duoneb 0.5 mg-3 mg/3 ml Soln] 3 ml INHALATION RT-Q4H PRN ml PRN Reason: Shortness Of Breath Or Wheezing RX: Albuterol Sulfate [Albuterol Sulfate Hfa] 2 puff PO RT-Q6H PRN PRN Reason: Shortness Of Breath RX: Pantoprazole [Protonix] 40 mg PO AC-BRKFST 30 Days #30 tab Discharge Medication List RX: Mometasone/Formoterol [Dulera 200 Mcg-5 Mcg Inhaler] 2 puff INHALATION RT- BID 05/13/14 [History] RX: Denosumab [Prolia] 60 mg SQ Q180D 04/10/20 [History] RX: Tiotropium 18 Mcg/Puff [Spiriva] 1 puff INHALATION RT-DAILY 04/10/20 [History] RX: Ipratropium-Albuterol Nebulize [Duoneb 0.5 mg-3 mg/3 ml Soln] 3 ml INHALATION RT-Q4H PRN ml 07/10/21 [Rx] RX: Ipratropium-Albuterol Nebulize [Duoneb 0.5 mg-3 mg/3 ml Soln] 3 ml INHALATION RT-QID 30 Days #120 each 07/10/21 [Rx] RX: Albuterol Sulfate [Albuterol Sulfate Hfa] 2 puff PO RT-Q6H PRN 08/08/21 [History] RX: Acetaminophen Tab [Tylenol] 650 mg PO Q6HR PRN tab 08/09/21 [Rx] RX: Apixaban [Eliquis] 5 mg PO BID 09/13/21 [History] RX: Pantoprazole [Protonix] 40 mg PO AC-BRKFST 30 Days #30 tab 09/18/21 [Rx] RX: predniSONE See Taper PO DIRECTED #40 tab 11/03/21 [Rx] Follow up Appointment(s)/Referral(s): Kati Jara MD [STAFF PHYSICIAN] - 1 Week (call on Friday and make your follow up appointment) Carolyn Mahmood DO [Primary Care Provider] - 1-2 days (call on Friday and make your follow up appointment) Patient Instructions/Handouts: COPD (Chronic Obstructive Pulmonary Disease) (DC) Discharge Disposition: HOME SELF-CARE
== END 2021-11-03 17:13 | disposition home or self-care (01) ==
LOC: EC 12:25 → 3SCARD 14:44 → INTOOBSV 14:44 → 3SCARD 15:13 → UNDODISIN 11-03 17:13
PROVIDERS: ADMIT Internal Medicine; ATTEND Internal Medicine
DX: J43.9 Emphysema, unspecified (principal); J96.21 Acute and chronic respiratory failure with hypoxia; N17.9 Acute kidney failure, unspecified; N18.30 Chronic kidney disease, stage 3 unspecified; J90 Pleural effusion, not elsewhere classified; D50.9 Iron deficiency anemia, unspecified; D53.9 Nutritional anemia, unspecified; R74.01 Elevation of levels of liver transaminase levels; K57.90 Diverticulosis of intestine, part unspecified, without perforation or abscess without bleeding; M19.90 Unspecified osteoarthritis, unspecified site; H91.90 Unspecified hearing loss, unspecified ear; K21.9 Gastro-esophageal reflux disease without esophagitis; M81.0 Age-related osteoporosis without current pathological fracture; G89.29 Other chronic pain; M54.50 Low back pain, unspecified; Z99.81 Dependence on supplemental oxygen; Z20.822 Contact with and (suspected) exposure to COVID-19; Z79.01 Long term (current) use of anticoagulants; Z79.51 Long term (current) use of inhaled steroids; Z79.899 Other long term (current) drug therapy; Z88.1 Allergy status to other antibiotic agents; Z88.2 Allergy status to sulfonamides; Z87.891 Personal history of nicotine dependence; Z86.010 Personal history of colon polyps; Z87.440 Personal history of urinary (tract) infections; Z90.710 Acquired absence of both cervix and uterus; Z98.51 Tubal ligation status; Z86.718 Personal history of other venous thrombosis and embolism; Z98.890 Other specified postprocedural states; Z80.1 Family history of malignant neoplasm of trachea, bronchus and lung
CPT/HCPCS: 96376 ×3; 96361 ×2; 96365; 96375 ×2; 99285; 36415; 94640 ×5; 94760 ×2; 93005; 82747; 83880; 80053; 80048 ×2; 82607; 83605; 84484; 85025 ×3; 85610; 85730; 87635; 71046; G0378 ×3; J1940; J2920 ×2; J2930; J3475

== ENCOUNTER → 2021-11-12 | Outpatient (CLI) | payer MEDICARE ==
--- NOTE | 2021-11-12 12:42 | CT ---
EXAMINATION TYPE: CT chest wo con DATE OF EXAM: 11/12/2021 COMPARISON: 08/06/2021, 07/07/2021 HISTORY: f/u nodules CT DLP: 136.9 mGycm, Automated exposure control for dose reduction was used. CONTRAST: Performed injected with 0 mL of Isovue 300. TECHNIQUE: Axial images were obtained at 5 mm thick sections. Reconstructed images are reviewed on [employer] computer in the coronal plane. FINDINGS: Portion of the thyroid visualized is normal. No suspicious lung nodules or focal infiltrates are present. Advanced emphysematous changes are prese nt especially within the upper lung borges. No enlarged mediastinal or hilar adenopathy is evident. The ascending aorta diameter at the level o f the main pulmonary artery is 3.5 cm. The main pulmonary artery diameter at the bifurcation is 2.9 cm. Coronary artery calcification is present. Small hiatal hernia is evident. Limited CT sections are obtained through the upper abdomen. There is a 5.1 cm cyst within the spleen measuring 18 Hounsfield units. This was present on 07/07/2021. IMPRESSIONS: 1. Advanced emphysematous changes. 2. No acute pulmonary process. 3. Large splenic cyst
== END | disposition home or self-care (01) ==
LOC: RADCTMAIN 09:00
PROVIDERS: ATTEND Family Medicine
DX: J43.9 Emphysema, unspecified (principal); D73.4 Cyst of spleen
CPT/HCPCS: 71250

== ENCOUNTER 2021-12-10 09:19 | Inpatient (IN) | payer MEDICARE ==
[2021-12-10 09:36] LABS: Glucose,Whole Blood 150 mg/dL (70-110)
[2021-12-10] MEDS ORDERED: ACETAMINOPHEN TAB 325 MG TAB PO STA (09:45)
[2021-12-10] MEDS ORDERED: SODIUM CHLORIDE 0.9% 500 ML 500 ML IV SCH (09:45)
--- NOTE | 2021-12-10 09:48 | ED ---
General Adult HPI - General Chief complaint: Altered Mental Status Stated complaint: AMS Time Seen by Provider: 12/10/21 09:22 Source: patient, EMS, RN notes reviewed Mode of arrival: EMS Limitations: altered mental status - History of Present Illness Initial comments: Patient is a 71-year-old female presenting to the emergency department with family concern for general weakness or confusion. Symptoms reportedly have progressed over the past 4 days. Patient is a very poor historian and offers no significant history. Patient denies any pain. Patient requests to be left alone. - Related Data Home Medications Medication Instructions Recorded Confirmed Mometasone/Formoterol [Dulera 200 2 puff INHALATION RT-BID 05/13/14 12/10/21 Mcg-5 Mcg Inhaler] Denosumab [Prolia] 60 mg SQ Q180D 04/10/20 12/10/21 Tiotropium 18 Mcg/Puff [Spiriva] 1 cap INHALATION RT-DAILY 04/10/20 12/10/21 Albuterol Sulfate [Albuterol 2 puff INHALATION RT-Q6H PRN 08/08/21 12/10/21 Sulfate Hfa] Apixaban [Eliquis] 5 mg PO BID 09/13/21 12/10/21 Previous Rx's Medication Instructions Recorded Ipratropium-Albuterol Nebulize 3 ml INHALATION RT-Q4H PRN ml 07/10/21 [Duoneb 0.5 mg-3 mg/3 ml Soln] Ipratropium-Albuterol Nebulize 3 ml INHALATION RT-QID 30 Days 07/10/21 [Duoneb 0.5 mg-3 mg/3 ml Soln] #120 each Acetaminophen Tab [Tylenol] 650 mg PO Q6HR PRN tab 08/09/21 Pantoprazole [Protonix] 40 mg PO AC-BRKFST 30 Days #30 tab 09/18/21 Allergies Allergy/AdvReac Type Severity Reaction Status Date / Time sulfamethoxazole Allergy Unknown Verified 12/10/21 11:31 [From Bactrim] trimethoprim [From Bactrim] Allergy Unknown Verified 12/10/21 11:31 Review of Systems ROS Statement: Those systems with pertinent positive or pertinent negative responses have been documented in the HPI. ROS Other: All systems not noted in ROS Statement are negative. Constitutional: Reports: as per HPI ENT: Denies: ear pain Respiratory: Denies: cough Cardiovascular: Denies: chest pain Endocrine: Reports: fatigue Gastrointestinal: Denies: abdominal pain Genitourinary: Denies: dysuria Musculoskeletal: Denies: back pain Skin: Denies: rash Neurological: Denies: headache Past Medical History Past Medical History: COPD, GERD/Reflux, Hearing Disorder / Deafness, Osteoarthritis (OA), Renal Disease Additional Past Medical History / Comment(s): Pt recently admitted to [facility] on 08/08/21 with left lower extremity DVT. 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 History of Any Multi-Drug Resistant Organisms: None Reported Past Surgical History: Hernia Repair, Hysterectomy, Tonsillectomy, Tubal Ligation Additional Past Surgical History / Comment(s): R inguinal hernia repair, colonoscopies Past Anesthesia/Blood Transfusion Reactions: No Reported Reaction, Postoperative Nausea & Vomiting (PONV) Past Psychological History: No Psychological Hx Reported Smoking Status: Former smoker Past Alcohol Use History: None Reported Past Drug Use History: None Reported - Past Family History Father Family Medical History: Cancer Additional Family Medical History / Comment(s): Lung cancer. General Exam Limitations: no limitations General appearance: alert, in no apparent distress Head exam: Present: atraumatic Eye exam: Present: normal appearance, PERRL ENT exam: Present: mucous membranes dry Neck exam: Present: normal inspection. Absent: tenderness, meningismus Respiratory exam: Present: normal lung sounds bilaterally Cardiovascular Exam: Present: tachycardia GI/Abdominal exam: Present: soft, normal bowel sounds. Absent: distended, tenderness, guarding, rebound, rigid, pulsatile mass Extremities exam: Present: normal inspection. Absent: pedal edema, calf tenderness Neurological exam: Present: alert, altered (Limited responses), other (Reluctant to follow commands. Moves all extremities) Psychiatric exam: Present: normal affect, normal mood Skin exam: Present: normal color Course Vital Signs 12/10/21 09:30 Temperature 99.6 F Pulse Rate 112 H Respiratory 20 Rate Blood Pressure 181/92 O2 Sat by Pulse 98 Oximetry EKG Findings - EKG Comments: EKG Findings:: Sinus tachycardia 113. ME 117. QRS 84. QT 336. QTc 43. Normal axis. Normal QRS. Nonspecific ST-T. Medical Decision Making - Medical Decision Making Case was discussed with Dr. ferguson, who will admit covering Dr. Rosenberg. Patient reevaluated. Patient and family updated. Urine still pending. BNP added. - Lab Data Result diagrams: 12/10/21 10:01 12/10/21 10:01 Lab Results 12/10/21 12/10/21 12/10/21 Range/Units 09:25 10:01 10:01 WBC 7.5 (3.8-10.6) k/uL RBC 3.52 L (3.80-5.40) m/uL Hgb 11.8 (11.4-16.0) gm/dL Hct 35.4 (34.0-46.0) % MCV 100.6 H D (80.0-100.0) fL MCH 33.4 (25.0-35.0) pg MCHC 33.2 (31.0-37.0) g/dL RDW 13.6 (11.5-15.5) % Plt Count 274 (150-450) k/uL MPV 8.7 Neutrophils % (Manual) 83 % Band Neuts % (Manual) 2 % Lymphocytes % (Manual) 9 % Monocytes % (Manual) 5 % Eosinophils % (Manual) 1 % Neutrophils # (Manual) 6.30 (1.3-7.7) k/uL Lymphocytes # (Manual) 0.68 L (1.0-4.8) k/uL Monocytes # (Manual) 0.38 (0-1.0) k/uL Eosinophils # (Manual) 0.08 (0-0.7) k/uL Nucleated RBCs 0 (0-0) /100 WBC Manual Slide Review Performed Hypochromasia Slight Poikilocytosis (manual Present PT 12.0 (9.0-12.0) sec INR 1.1 (<1.2) APTT 27.9 (22.0-30.0) sec Sodium (137-145) mmol/L Potassium (3.5-5.1) mmol/L Chloride (98-107) mmol/L Carbon Dioxide (22-30) mmol/L Anion Gap mmol/L BUN (7-17) mg/dL Creatinine (0.52-1.04) mg/dL Est GFR (CKD-EPI)AfAm (>60 ml/min/1.73 sqM) Est GFR (CKD-EPI)NonAf (>60 ml/min/1.73 sqM) Glucose (74-99) mg/dL POC Glucose (mg/dL) 150 H (70-110) mg/dL POC Glu Administration Specialist ID [place], [place] Plasma Lactic Acid Javier (0.7-2.0) mmol/L Calcium (8.4-10.2) mg/dL Total Bilirubin (0.2-1.3) mg/dL AST (14-36) U/L ALT (4-34) U/L Alkaline Phosphatase (38-126) U/L Troponin I (0.000-0.034) ng/mL Total Protein (6.3-8.2) g/dL Albumin (3.5-5.0) g/dL Coronavirus (PCR) (Not Detectd) Influenza Type A RNA (Not Detectd) Influenza Type B (PCR) (Not Detectd) 12/10/21 12/10/21 12/10/21 Range/Units 10:01 10:01 10:01 WBC (3.8-10.6) k/uL RBC (3.80-5.40) m/uL Hgb (11.4-16.0) gm/dL Hct (34.0-46.0) % MCV (80.0-100.0) fL MCH (25.0-35.0) pg MCHC (31.0-37.0) g/dL RDW (11.5-15.5) % Plt Count (150-450) k/uL MPV Neutrophils % (Manual) % Band Neuts % (Manual) % Lymphocytes % (Manual) % Monocytes % (Manual) % Eosinophils % (Manual) % Neutrophils # (Manual) (1.3-7.7) k/uL Lymphocytes # (Manual) (1.0-4.8) k/uL Monocytes # (Manual) (0-1.0) k/uL Eosinophils # (Manual) (0-0.7) k/uL Nucleated RBCs (0-0) /100 WBC Manual Slide Review Hypochromasia Poikilocytosis (manual PT (9.0-12.0) sec INR (<1.2) APTT (22.0-30.0) sec Sodium 136 L (137-145) mmol/L Potassium 4.5 (3.5-5.1) mmol/L Chloride 98 (98-107) mmol/L Carbon Dioxide 22 (22-30) mmol/L Anion Gap 16 mmol/L BUN 46 H (7-17) mg/dL Creatinine 3.86 H (0.52-1.04) mg/dL Est GFR (CKD-EPI)AfAm 13 (>60 ml/min/1.73 sqM) Est GFR (CKD-EPI)NonAf 11 (>60 ml/min/1.73 sqM) Glucose 158 H (74-99) mg/dL POC Glucose (mg/dL) (70-110) mg/dL POC Glu Administration Specialist ID Plasma Lactic Acid Javier 1.1 (0.7-2.0) mmol/L Calcium 8.7 (8.4-10.2) mg/dL Total Bilirubin 0.7 (0.2-1.3) mg/dL AST 203 H (14-36) U/L ALT 83 H (4-34) U/L Alkaline Phosphatase 82 (38-126) U/L Troponin I 0.080 H* (0.000-0.034) ng/mL Total Protein 6.2 L (6.3-8.2) g/dL Albumin 3.1 L (3.5-5.0) g/dL Coronavirus (PCR) (Not Detectd) Influenza Type A RNA (Not Detectd) Influenza Type B (PCR) (Not Detectd) 12/10/21 12/10/21 Range/Units 10:05 10:05 WBC (3.8-10.6) k/uL RBC (3.80-5.40) m/uL Hgb (11.4-16.0) gm/dL Hct (34.0-46.0) % MCV (80.0-100.0) fL MCH (25.0-35.0) pg MCHC (31.0-37.0) g/dL RDW (11.5-15.5) % Plt Count (150-450) k/uL MPV Neutrophils % (Manual) % Band Neuts % (Manual) % Lymphocytes % (Manual) % Monocytes % (Manual) % Eosinophils % (Manual) % Neutrophils # (Manual) (1.3-7.7) k/uL Lymphocytes # (Manual) (1.0-4.8) k/uL Monocytes # (Manual) (0-1.0) k/uL Eosinophils # (Manual) (0-0.7) k/uL Nucleated RBCs (0-0) /100 WBC Manual Slide Review Hypochromasia Poikilocytosis (manual PT (9.0-12.0) sec INR (<1.2) APTT (22.0-30.0) sec Sodium (137-145) mmol/L Potassium (3.5-5.1) mmol/L Chloride (98-107) mmol/L Carbon Dioxide (22-30) mmol/L Anion Gap mmol/L BUN (7-17) mg/dL Creatinine (0.52-1.04) mg/dL Est GFR (CKD-EPI)AfAm (>60 ml/min/1.73 sqM) Est GFR (CKD-EPI)NonAf (>60 ml/min/1.73 sqM) Glucose (74-99) mg/dL POC Glucose (mg/dL) (70-110) mg/dL POC Glu Administration Specialist ID Plasma Lactic Acid Javier (0.7-2.0) mmol/L Calcium (8.4-10.2) mg/dL Total Bilirubin (0.2-1.3) mg/dL AST (14-36) U/L ALT (4-34) U/L Alkaline Phosphatase (38-126) U/L Troponin I (0.000-0.034) ng/mL Total Protein (6.3-8.2) g/dL Albumin (3.5-5.0) g/dL Coronavirus (PCR) Not Detected (Not Detectd) Influenza Type A RNA Not Detected (Not Detectd) Influenza Type B (PCR) Not Detected (Not Detectd) - Radiology Data Radiology results: report reviewed (CT brain reveals atrophy and chronic small vessel disease. No acute process), image reviewed (Chest x-ray shows int erstitial changes) Disposition Clinical Impression: Altered mental status, MATTHIEU (acute kidney injury) Disposition: ADMITTED IP TO THIS HOSP Is patient prescribed a controlled substance at d/c from ED?: No Referrals: Carolyn Rosenberg DO [Primary Care Provider] - 1-2 days Time of Disposition: 12:04
--- NOTE | 2021-12-10 10:37 | XR ---
EXAMINATION TYPE: XR chest 2V DATE OF EXAM: 12/10/2021 10:31 AM COMPARISON: Chest radiographs from 11/01/2021, CT chest 11/12/2021. TECHNIQUE: XR chest 2V Frontal and lateral views of the chest. CLINICAL INDICATION:Female, 71 years old with history of Fever; FINDINGS: Lungs/Pleura: No pneumothorax or pleural effusion. Similar increased interstitial markings bilaterall y redemonstrated. Heart/mediastinum: Cardiomediastinal silhouette is stable. Atherosclerotic calcifications are seen i n the aorta. Musculoskeletal: No acute osseous pathology. Stable moderate compression type fracture deformity of t he T7 vertebral body. IMPRESSION: Bilateral interstitial edema on background bilateral chronic parenchymal changes. Correlate clinicall y for fluid overload state.
--- NOTE | 2021-12-10 10:42 | CT ---
EXAMINATION TYPE: CT brain wo con DATE OF EXAM: 12/10/2021 HISTORY: ams CT DLP: 1141.1 mGycm. Automated Exposure Control for Dose Reduction was Utilized. TECHNIQUE: CT scan of the head is performed without contrast. COMPARISON: None. FINDINGS: There is no acute intracranial hemorrhage or midline shift identified. There is mild to m oderate diffuse ventricular and sulcal prominence consistent with diffuse age-related cerebral atroph y. There is mild low-attenuation in the periventricular white matter consistent with chronic small v essel ischemic change. The globes are intact and the visualized sinuses are clear. IMPRESSION: No acute intracranial hemorrhage or midline shift. There is [id number] diffuse ag e-related cerebral atrophy and mild chronic small vessel ischemic change noted.
[2021-12-10 10:50] LABS: Albumin 3.1 g/dL (3.5-5.0); Calcium 8.7 mg/dL (8.4-10.2); Potassium 4.5 mmol/L (3.5-5.1); Total Bilirubin 0.7 mg/dL (0.2-1.3); Total Protein 6.2 g/dL (6.3-8.2)
[2021-12-10 10:57] LABS: HCT 35.4 % (34.0-46.0); HGB 11.8 gm/dL (11.4-16.0); Hypochromasia Slight; MCH 33.4 pg (25.0-35.0); MCHC 33.2 g/dL (31.0-37.0); Mean Platelet Volume 8.7; Platelet Count 274 k/uL (150-450); RBC 3.52 m/uL (3.80-5.40); RDW 13.6 % (11.5-15.5); WBC 7.5 k/uL (3.8-10.6)
[2021-12-10 11:01] LABS: MCV 100.6 fL (80.0-100.0)
[2021-12-10] MEDS ORDERED: SODIUM CHLORIDE 0.9% 500 ML 500 ML IV STA (11:03)
[2021-12-10 11:11] LABS: INR 1.1 (<1.2); Partial Thromboplastin Time 27.9 sec (22.0-30.0)
[2021-12-10 11:40] LABS: Band Neutrophils % 2 %; Eosinophils # (M) 0.08 k/uL (0-0.7); Lymphocytes # (M) 0.68 k/uL (1.0-4.8); Monocytes # (M) 0.38 k/uL (0-1.0); Neutrophils % (M) 83 %; Nucleated Red Blood Cells 0 /100 WBC (0-0); Poikilocytosis (M) Present; Total Cells Counted 100
[2021-12-10] MEDS ORDERED: NALOXONE 0.4 MG/ML 1 ML VIAL IV PRN (12:05)
[2021-12-10] MEDS ORDERED: SODIUM CHLORIDE 0.9% 1,000 ML IV SCH (12:15)
[2021-12-10] MEDS ORDERED: FUROSEMIDE 10 MG/ML 4 ML VIAL IV STA (17:23)
[2021-12-10] MEDS: APIXABAN 5 MG TAB PO SCH (20:48)
[2021-12-10] MEDS: BUDESONIDE 1 MG/2 ML NEBU INHALATION SCH (21:11)
[2021-12-10] MEDS: IPRATROPIUM-ALBUTEROL 3 ML NEB INHALATION SCH (21:11)
[2021-12-10] MEDS: SYMBICORT 160-4.5 MCG INHALER INHALATION SCH (21:12)
--- NOTE | 2021-12-11 05:16 | HP ---
HISTORY AND PHYSICAL CHIEF COMPLAINT: Change in mental status. HISTORY OF PRESENT ILLNESS: This is a 71-year-old woman with a past medical history of multiple problems, GERD, DJD, was complaining of change in mental status and the family is concerned and brought the patient to [facility]. The confusion has been progressed over the last 4 days. The white count is normal. Creatinine is 3.86, indicating acute renal failure. Troponins elevated up to 0.086. Influenza negative. The chest x-ray which I reviewed personally showed some increased probably indicating some CHF and CT of the brain was also done which I reviewed indicated mild atrophy. PAST MEDICAL HISTORY: Reviewed and include COPD and GERD. The rest of the history was reviewed. History of recent DVT. MEDICATIONS: The home medications were reviewed. Again, Spiriva. Rest of medications reviewed. ALLERGIES: Bactrim. FAMILY HISTORY: Could not be obtained. The patient is confused. SOCIAL HISTORY: Could not be obtained. The patient is confused. REVIEW OF SYSTEMS: Could not be obtained. The patient is confused. PHYSICAL EXAMINATION: VITAL SIGNS: Pulse is 102, blood pressure 160/77, respirations 16. HEENT: Conjunctivae normal. NECK: No JVD. CARDIOVASCULAR: S1 and S2. RESPIRATIONS: Breath sounds diminished at the bases. A few scattered rhonchi and crackles. ABDOMEN: Soft, nontender. LEGS: No edema, no swelling. NERVOUS SYSTEM: Diffuse weakness. SKIN: No rash. JOINTS: No active deforming arthropathy. LABORATORY DATA: Labs are reviewed. X-ray and CT scan reviewed as mentioned. ASSESSMENT: 1. Change in mental status, acute metabolic encephalopathy. 2. Congestive heart failure and chronic obstructive pulmonary disease acute exacerbation. 3. Acute renal failure. 4. Troponin indeterminate, 0.119. 5. Degenerative joint disease. 6. Multiple medical issues. RECOMMENDATIONS AND DISCUSSION: In this 71-year-old woman who presented with multiple complex medical issues, monitor the patient closely and continue the current medications, symptomatic treatment. Resume the home medications. I would recommend bronchodilators and Nephrology consultation and cardiology consultation and 2D echo with Doppler if it is not done during the past 6 months. Resume the home medications. Overall prognosis guarded because of multiple complex medical issues. See orders for further details. Further recommendations to follow. Avoid sedatives or anxiolytics at this point, because the patient is confused. MMODL / IJN: [id number] / ARIANA
[2021-12-11 08:18] LABS: Calcium 8.3 mg/dL (8.4-10.2); Potassium 4.3 mmol/L (3.5-5.1)
[2021-12-11 08:20] LABS: HCT 35.5 % (34.0-46.0); HGB 11.3 gm/dL (11.4-16.0); Hypochromasia Moderate; MCH 32.4 pg (25.0-35.0); MCHC 31.7 g/dL (31.0-37.0); Macrocytosis Slight; Mean Platelet Volume 8.3; Platelet Count 234 k/uL (150-450); RBC 3.48 m/uL (3.80-5.40); RDW 14.1 % (11.5-15.5); WBC 10.1 k/uL (3.8-10.6)
[2021-12-11 08:42] LABS: Band Neutrophils % 1 %; Lymphocytes # (M) 1.52 k/uL (1.0-4.8); Metamyelocytes % 1 %; Neutrophils % (M) 79 %; Nucleated Red Blood Cells 0 /100 WBC (0-0); Poikilocytosis (M) Present; Total Cells Counted 100
[2021-12-11] MEDS: APIXABAN 5 MG TAB PO SCH ×3 (08:46→21:08)
[2021-12-11] MEDS: PANTOPRAZOLE 40 MG/10 ML VIAL IV SCH (08:46)
[2021-12-11] MEDS: BUDESONIDE 1 MG/2 ML NEBU INHALATION SCH ×2 (08:54→19:48)
[2021-12-11] MEDS: IPRATROPIUM-ALBUTEROL 3 ML NEB INHALATION SCH ×4 (08:54→19:48)
[2021-12-11] MEDS: SYMBICORT 160-4.5 MCG INHALER INHALATION SCH (08:54)
--- NOTE | 2021-12-11 10:29 | P.CRDCN ---
History of Present Illness Consult date: 12/11/21 History of present illness: HISTORY OF PRESENT ILLNESS: This is a 71-year-old female with a past medical history significant for DVT, COPD, home oxygen use. 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 We have been asked to see the patient in consultation for congestive heart failure. Patient was brought to the emergency room by her family for concerns of generalized weakness and confusion. Patient examined at the bedside. Patient is confused at the time of examination. She is yelling at the providing any time she is touched. She is only able to answer some questions. She was found to have acute renal failure. She denies any SOB or CP. Blood pressure slightly elevated this morning, however previous SBP running around 140s. * EKG reveals sinus tachycardia. Heart rate 113. * Chest xray bilateral interstitial edema on background bilateral chronic parenchymal changes * Laboratory data: WBC 10.1. Hemoglobin 11.3. Platelet count 234. Sodium 139. Potassium 4.3. BUN 65. Creatinine 1.0. Troponin 0.080. 0.119. 0.117. 0.125. ProBNP 15,600 * Current home cardiac medications include Eliquis 5mg BID * Most recent echocardiogram obtained in August 2021 reveals EF 60-65%, mild TR, mild pulmonary hypertension REVIEW OF SYSTEMS: At the time of my exam: CONSTITUTIONAL: Denies fever or chills. HEENT: Denies blurred vision, vision changes, or eye pain. Denies hemoptysis CARDIOVASCULAR: Denies chest pain. Denies orthopnea. Denies PND. Denies palpitations RESPIRATORY: Denies shortness of breath. GASTROINTESTINAL: Denies abdominal pain. Denies nausea or vomiting. HEMATOLOGIC: Denies bleeding disorders. GENITOURINARY: Denies any blood in urine. SKIN: Denies pruitis. Denies rash. PHYSICAL EXAM: VITAL SIGNS: Reviewed. GENERAL: Well-developed in no acute distress. HEENT: Head is normocephalic. Pupils are equal, round. Sclerae anicteric. Mucous membranes of the mouth are moist. Neck supple. No JVD or thyromegaly LUNGS: Respirations even and unlabored. Lungs essentially clear to auscultation bilaterally. HEART: Regular rate and rhythm. S1 and S2 heard. ABDOMEN: Soft. Nondistended. Nontender. EXTREMITIES: Normal range of motion. No clubbing or cyanosis. Peripheral puls es intact. No lower extremity edema NEUROLOGIC: Awake and alert. Oriented x 1. ASSESSMENT: Altered mental status Acute renal failure Abnormal troponins, ACS ruled out, likely secondary to ARF History of DVT, on Eliquis Possible acute CHF with perserved EF on admission, currently euvolemic COPD with home oxygen use PLAN: Obtain 2D echo to assess cardiac structure and function Continue Eliquis Nephrology consulted for acute renal failure Further recommendations pending patient course Nurse practitioner note has been reviewed by physician. Signing provider agrees with the documented findings, assessment, and plan of care. Past Medical History Past Medical History: COPD, GERD/Reflux, Hearing Disorder / Deafness, Osteoarthritis (OA), Renal Disease Additional Past Medical History / Comment(s): Pt recently admitted to [facility] on 08/08/21 with left lower extremity DVT. 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 History of Any Multi-Drug Resistant Organisms: None Reported Past Surgical History: Hernia Repair, Hysterectomy, Tonsillectomy, Tubal Ligation Additional Past Surgical History / Comment(s): R inguinal hernia repair, colonoscopies Past Anesthesia/Blood Transfusion Reactions: No Reported Reaction, Postoperative Nausea & Vomiting (PONV) Past Psychological History: No Psychological Hx Reported Additional Psychological History / Comment(s): Pt resides with her spouse. She has home oxygen, nebulizer, cane and walker. Pt does not drive, her man takes her to appointments and lives nearby. Smoking Status: Former smoker Past Alcohol Use History: None Reported Additional Past Alcohol Use History / Comment(s): Pt started smoking approximately 1971 and quit approximately 2014. Past Drug Use History: None Reported - Past Family History Father Family Medical History: Cancer Additional Family Medical History / Comment(s): Lung cancer. Medications and Allergies Home Medications Medication Instructions Recorded Confirmed Type Mometasone/Formoterol [Dulera 200 2 puff INHALATION RT-BID 05/13/14 12/10/21 History Mcg-5 Mcg Inhaler] Denosumab [Prolia] 60 mg SQ Q180D 04/10/20 12/10/21 History Tiotropium 18 Mcg/Puff [Spiriva] 1 cap INHALATION RT-DAILY 04/10/20 12/10/21 History Ipratropium-Albuterol Nebulize 3 ml INHALATION RT-Q4H PRN ml 07/10/21 12/10/21 Rx [Duoneb 0.5 mg-3 mg/3 ml Soln] Ipratropium-Albuterol Nebulize 3 ml INHALATION RT-QID 30 Days 07/10/21 12/10/21 Rx [Duoneb 0.5 mg-3 mg/3 ml Soln] #120 each Albuterol Sulfate [Albuterol 2 puff INHALATION RT-Q6H PRN 08/08/21 12/10/21 History Sulfate Hfa] Acetaminophen Tab [Tylenol] 650 mg PO Q6HR PRN tab 08/09/21 12/10/21 Rx Apixaban [Eliquis] 5 mg PO BID 09/13/21 12/10/21 History Pantoprazole [Protonix] 40 mg PO AC-BRKFST 30 Days #30 tab 09/18/21 12/10/21 Rx Allergies Allergy/AdvReac Type Severity Reaction Status Date / Time sulfamethoxazole Allergy Unknown Verified 12/10/21 11:31 [From Bactrim] trimethoprim [From Bactrim] Allergy Unknown Verified 12/10/21 11:31 Physical Exam Vitals: Vital Signs Temp Pulse Pulse Resp BP BP Pulse Ox 12/11/21 10:14 91 19 171/69 93 L 12/11/21 08:54 89 12/11/21 04:00 98.6 F 100 20 152/94 96 12/11/21 02:00 100 18 12/11/21 00:00 100 18 142/86 95 12/10/21 21:22 90 12/10/21 21:12 95 96 12/10/21 20:00 98.8 F 96 22 149/70 94 L 12/10/21 15:20 97.9 F 96 16 163/77 100 12/10/21 14:57 87 16 159/70 95 Intake and Output 12/10/21 12/11/21 12/11/21 22:59 06:59 14:59 Intake Total 120 240 Output Total 50 125 Balance 70 115 Intake: Oral 120 240 Output: Urine 50 125 Other: Voiding Method Indwelling Catheter Indwelling Catheter Weight 63.503 kg Results 12/11/21 07:36 12/11/21 07:36 Cardiac Enzymes 12/10/21 12/10/21 12/10/21 Range/Units 10:01 10:01 14:57 AST 203 H (14-36) U/L Troponin I 0.080 H* 0.119 H* (0.000-0.034) ng/mL 12/10/21 12/10/21 Range/Units 15:25 18:00 AST (14-36) U/L Troponin I 0.117 H* 0.125 H* (0.000-0.034) ng/mL Coagulation 12/10/21 Range/Units 10:01 PT 12.0 (9.0-12.0) sec APTT 27.9 (22.0-30.0) sec CBC 12/10/21 12/11/21 Range/Units 10:01 07:36 WBC 7.5 10.1 (3.8-10.6) k/uL RBC 3.52 L 3.48 L (3.80-5.40) m/uL Hgb 11.8 11.3 L (11.4-16.0) gm/dL Hct 35.4 35.5 (34.0-46.0) % Plt Count 274 234 (150-450) k/uL Comprehensive Metabolic Panel 12/10/21 12/11/21 Range/Units 10:01 07:36 Sodium 136 L 139 (137-145) mmol/L Potassium 4.5 4.3 (3.5-5.1) mmol/L Chloride 98 103 (98-107) mmol/L Carbon Dioxide 22 19 L (22-30) mmol/L BUN 46 H 65 H (7-17) mg/dL Creatinine 3.86 H 6.00 H (0.52-1.04) mg/dL Glucose 158 H 99 (74-99) mg/dL Calcium 8.7 8.3 L (8.4-10.2) mg/dL AST 203 H (14-36) U/L ALT 83 H (4-34) U/L Alkaline Phosphatase 82 (38-126) U/L Total Protein 6.2 L (6.3-8.2) g/dL Albumin 3.1 L (3.5-5.0) g/dL Current Medications Generic Name Dose Route Start Last Admin Trade Name Freq PRN Reason Stop Dose Admin Acetaminophen 650 mg 12/10/21 12:05 Acetaminophen Tab 325 Mg Tab PO Q6HR PRN Mild Pain or Fever > 100.5 Albuterol/Ipratropium 3 ml 12/10/21 20:00 12/11/21 08:54 Ipratropium-Albuterol 3 Ml Neb INHALATION 3 ml RT-QID VIDA Administration Albuterol/Ipratropium 3 ml 12/10/21 17:21 Ipratropium-Albuterol 3 Ml Neb INHALATION RT-Q4H PRN Shortness Of Breath Or Wheezing Apixaban 5 mg 12/10/21 21:00 12/10/21 20:48 Apixaban 5 Mg Tab PO 5 mg BID VIDA Administration Protocol Budesonide 1 mg 12/10/21 20:00 12/11/21 08:54 Budesonide 1 Mg/2 Ml Nebu INHALATION 1 mg RT-BID VIDA Administration Budesonide/Formoterol Fumarate 2 puff 12/10/21 20:00 12/11/21 08:54 Symbicort 160-4.5 Mcg Inhaler INHALATION Not Given RT-BID VIDA Naloxone HCl 0.2 mg 12/10/21 12:05 Naloxone 0.4 Mg/Ml 1 Ml Vial IV Q2M PRN Opioid Reversal Pantoprazole Sodium 40 mg 12/11/21 09:00 12/11/21 08:46 Pantoprazole 40 Mg/10 Ml Vial IV 40 mg DAILY VIDA Administration Intake and Output 12/10/21 12/11/21 12/11/21 22:59 06:59 14:59 Intake Total 120 240 Output Total 50 125 Balance 70 115 Intake: Oral 120 240 Output: Urine 50 125 Other: Voiding Method Indwelling Catheter Indwelling Catheter Weight 63.503 kg 12/11/21 07:36 12/11/21 07:36
[2021-12-11] MEDS ORDERED: FUROSEMIDE 10 MG/ML 10 ML VIAL IV STA (12:05)
--- NOTE | 2021-12-11 12:33 | P.NPCON ---
History of Present Illness - Reason for Consult acute renal failure - History of Present Illness Patient is a 71-year-old female admitted to the hospital with family been concerned for generalized weakness and confusion. Her condition has apparently worsened over the past few days prior to admission. Patient is currently not able to give a detailed history. She states that she is having pain in her leg and arms. Patient has been confused according to nursing staff. Currently she appears short of breath. Patient is maintained on 3 L hasn't cannula. She has an indwelling Santos catheter with no urine output in the bag. Serum creatinine was 3.8 on admission and it is gone up to 6.0 today. Previous creatinine was 1.3 on 11/03/2021. Troponin has slowly increased to 0.125 today Coronavirus PCR negative. Blood pressure has not been low in fact it is high. Patient received IV fluids initially but currently discontinued. She also received a dose of IV Lasix yesterday at 40 mg. UA is not available Chest x-ray shows suggestion of pulmonary vascular congestion with bilateral interstitial edema Review of Systems As per HPI, other systems negative Past Medical History Past Medical History: COPD, GERD/Reflux, Hearing Disorder / Deafness, Osteoarthritis (OA), Renal Disease Additional Past Medical History / Comment(s): Pt recently admitted to [facility] on 08/08/21 with left lower extremity DVT. 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 History of Any Multi-Drug Resistant Organisms: None Reported Past Surgical History: Hernia Repair, Hysterectomy, Tonsillectomy, Tubal Ligation Additional Past Surgical History / Comment(s): R inguinal hernia repair, colonoscopies Past Anesthesia/Blood Transfusion Reactions: No Reported Reaction, Postoperative Nausea & Vomiting (PONV) Past Psychological History: No Psychological Hx Reported Additional Psychological History / Comment(s): Pt resides with her spouse. She has home oxygen, nebulizer, cane and walker. Pt does not drive, her man takes her to appointments and lives nearby. Smoking Status: Former smoker Past Alcohol Use History: None Reported Additional Past Alcohol Use History / Comment(s): Pt started smoking approximately 1971 and quit approximately 2014. Past Drug Use History: None Reported - Past Family History Father Family Medical History: Cancer Additional Family Medical History / Comment(s): Lung cancer. Medications and Allergies Home Medications Medication Instructions Recorded Confirmed Type Mometasone/Formoterol [Dulera 200 2 puff INHALATION RT-BID 05/13/14 12/10/21 History Mcg-5 Mcg Inhaler] Denosumab [Prolia] 60 mg SQ Q180D 04/10/20 12/10/21 History Tiotropium 18 Mcg/Puff [Spiriva] 1 cap INHALATION RT-DAILY 04/10/20 12/10/21 History Ipratropium-Albuterol Nebulize 3 ml INHALATION RT-Q4H PRN ml 07/10/21 12/10/21 Rx [Duoneb 0.5 mg-3 mg/3 ml Soln] Ipratropium-Albuterol Nebulize 3 ml INHALATION RT-QID 30 Days 07/10/21 12/10/21 Rx [Duoneb 0.5 mg-3 mg/3 ml Soln] #120 each Albuterol Sulfate [Albuterol 2 puff INHALATION RT-Q6H PRN 08/08/21 12/10/21 History Sulfate Hfa] Acetaminophen Tab [Tylenol] 650 mg PO Q6HR PRN tab 08/09/21 12/10/21 Rx Apixaban [Eliquis] 5 mg PO BID 09/13/21 12/10/21 History Pantoprazole [Protonix] 40 mg PO AC-BRKFST 30 Days #30 tab 09/18/21 12/10/21 Rx Allergies Allergy/AdvReac Type Severity Reaction Status Date / Time sulfamethoxazole Allergy Unknown Verified 12/10/21 11:31 [From Bactrim] trimethoprim [From Bactrim] Allergy Unknown Verified 12/10/21 11:31 Physical Exam Vitals: Vital Signs Temp Pulse Pulse Resp BP BP Pulse Ox 12/11/21 12:14 90 12/11/21 12:05 94 12/11/21 10:21 91 19 12/11/21 10:14 91 19 171/69 93 L 12/11/21 08:54 89 12/11/21 04:00 98.6 F 100 20 152/94 96 12/11/21 02:00 100 18 12/11/21 00:00 100 18 142/86 95 12/10/21 21:22 90 12/10/21 21:12 95 96 12/10/21 20:00 98.8 F 96 22 149/70 94 L 12/10/21 15:20 97.9 F 96 16 163/77 100 12/10/21 14:57 87 16 159/70 95 Intake and Output 12/10/21 12/11/21 12/11/21 22:59 06:59 14:59 Intake Total 120 240 Output Total 50 125 Balance 70 115 Intake: Oral 120 240 Output: Urine 50 125 Other: Voiding Method Indwelling Catheter Indwelling Catheter Indwelling Catheter Weight 63.503 kg 63.503 kg Patient is awake, comfortable, not in any acute distress Examination of the heart S1 and S2 Examination of the lungs bilateral breath sounds are heard Abdomen is soft nontender Examination lower extremities shows no edema HAT BLOCK BENCH HAND exam patient is confused. Moving all 4 extremities. Results - Lab Results Most recent lab results Calcium 8.3 mg/dL (8.4-10.2) L 12/11/21 07:36 12/11/21 07:36 12/11/21 07:36 Assessment and Plan Assessment: 1. Acute kidney injury most likely ATN currently oliguric. Serum creatinine has increased significantly from yesterday. Currently not on any nephrotoxic agents. Blood pressure is not low. Patient has an indwelling Santos catheter. UA is not available. 2. CHF exacerbation acute, possibly systolic. Ejection fraction not available at this time. 3. Mental status changes possibly related to uremia with acute advanced kidney injury 4. Chronic kidney disease with previous creatinine at 1.3, NKF stage IIIB, etiology likely nephrosclerosis with history of possible left renal atrophy according to the notes. Plan: IV Lasix 1 Check ultrasound of the kidneys Check urine analysis If patient does not have significant response to IV Lasix she will need hemodialysis given the change in mentation as well. If respiratory status worsens patient will need to be transferred to the ICU. Thank you for the consultation. We'll continue to follow the patient with you during her hospitalization
--- NOTE | 2021-12-11 12:57 | CA ---
Transthoracic Echo Report Name: Delmy Anderson Age: 71 Gender: F : 1950 Exam Date: 12/11/2021 10:24 Exam Location: [facility] Ht (in): 65 Wt (lb): 140 Ordering Physician: Delmi Patterson Attending/Referring Phys: [id number], Leonardo Veneer Clipper Mitzi Thompson RDCS Procedure CPT: Indications: LV function, abnormal trops Cardiac Hx: Technical Quality: Fair Contrast 1: Total Dose (mL): Contrast 2: Total Dose (mL): MEASUREMENTS (Male / Female) Normal Values 2D ECHO LV Diastolic Diameter PLAX 3.7 cm 4.2 - 5.9 / 3.9 - 5.3 cm LV Systolic Diameter PLAX 2.3 cm IVS Diastolic Thickness 1.1 cm 0.6 - 1.0 / 0.6 - 0.9 cm LVPW Diastolic Thickness 0.9 cm 0.6 - 1.0 / 0.6 - 0.9 cm LV Relative Wall Thickness 0.6 FINDINGS Left Ventricle Limited study, Mildly increased left ventricular wall thickness. Left ventricular ejection fraction is estimated at 50-55 %. Basal inferior wall hypokinesis. Right Ventricle Right Atrium Left Atrium Mitral Valve Aortic Valve Tricuspid Valve Pulmonic Valve Pericardium No pericardial effusion. Aorta CONCLUSIONS Limited study Left ventricular ejection fraction 50-55% Basilar inferior hypokinesis No pericardial effusion Previewed by: Dr. Ko Vyas DO (Electronically Signed) Final Date: 11 December 2021 12:56
--- NOTE | 2021-12-11 13:49 | XR ---
EXAMINATION TYPE: XR chest 1V DATE OF EXAM: 12/11/2021 COMPARISON: Chest x-ray 12/10/2021 HISTORY: Altered mental status, COPD TECHNIQUE: Single frontal view of the chest is obtained. FINDINGS: There is prominence of the interstitium. No evident pneumothorax. Heart is enlarged. Aorta is dense. There is underlying emphysema. Patient is rotated and there are overlying leads. IMPRESSION: Emphysema, there are interstitial changes, correlate to exclude edema. Appearance of lar ge heart may be technical.
[2021-12-11] MEDS ORDERED: LIDOCAINE 1% INJ 10MG/ML (30 ML VIAL-PF) SQ ONE (14:33)
[2021-12-11 15:28] LABS: ABG Base Excess -9.1 mmol/L; ABG HCO3 18 mmol/L (21-25); ABG PCO2 38 mmHg (35-45); ABG PH 7.27 (7.35-7.45); ABG PO2 79 mmHg (83-108); ABG TCO2 19 mmol/L (19-24); Allen Test Performed? Yes
--- NOTE | 2021-12-11 15:51 | IR ---
EXAMINATION TYPE: IR cvc insert non tunneled DATE OF EXAM: 12/11/2021 COMPARISON: NONE HISTORY: Fluoroscopy time. Fluoroscopy was provided to the referring clinician.
--- NOTE | 2021-12-11 16:08 | US ---
EXAMINATION TYPE: US kidneys/renal and bladder DATE OF EXAM: 12/11/2021 COMPARISON: US dated 10/15/2019 CLINICAL HISTORY: 71 year-old female acute kidney injury TECHNIQUE: Multiple sonographic images of the kidneys and bladder are obtained. FINDINGS: EXAM MEASUREMENTS: Right Kidney: 10.5 x 4.9 x 4.4 cm Left Kidney: 12.1 x 9.5 x 10.6 cm, difficult to measure accurately due to severe hydronephrosis. Tax Advisor notes: Left side scanned first due to patient positioning. Right Kidney: No hydronephrosis or masses seen Left Kidney: Severe hydronephrosis Bladder: Could not be adequately imaged due to patient's condition. IMPRESSION: 1. Severe left-sided hydronephrosis. Associated renal cortical thinning. Appropriate further evaluati on and management recommended. 2. No hydronephrosis on the right.
--- NOTE | 2021-12-11 16:11 | P.CNPUL ---
History of Present Illness Consult date: 12/11/21 Requesting physician: Toro Hernandez Reason for consult: COPD Chief complaint: Altered mental status, weakness History of present illness: This 71-year-old female patient who presented to the emergency room yesterday via EMS as her family had noted a 4 day history of generalized weakness and con fusion. She has a known history of advanced chronic obstructive pulmonary disease with previous history of heavy tobacco dependence. Her FEV1 ranges between 30 and 35% of predicted. She is maintained on Dulera, Spiriva and albuterol in the outpatient setting. She has a nebulizer for treatments as well. She is also oxygen dependent on 2 L at home. She was discharged One month ago for an acute on chronic hypoxic respiratory failure secondary to COPD exacerbation without clear evidence of pneumonia. Chest x-ray showing bilateral interstitial edema on background bilateral chronic parenchymal changes. Most likely fluid overload state. Echocardiogram reveals preserved left ventricular systolic ejection fraction of 50-55%. Basilar inferior hypokinesis. No pericardial effusion. Computed tomography scan of the brain revealed no acute intracranial hemorrhage or midline shift. There is [id number] diffuse age-related cerebral atrophy and mild chronic small vessel ischemic changes noted. Follow-up chest x-ray continues show some interstitial changes. Evidence of emphysema. Urine culture is positive for gram-negative bacilli. Blood cultures are pending. White count 10.1. Hemoglobin 11.3. Sodium 139. Potassium 4.3. Bicarb 19. BUN 65. Creatinine 6.00. Pro calcitonin 6.11. Troponin leak at 0.11, 0.11, 0.12. ProBNP 15,600. Ocampo virus not detected. Influenza screen negative. She's been initiated on DuoNeb inhalations, Pulmicort inhalations. Anticoagulated with Eliquis. She is seen today in consultation on the selective care unit. She is currently resting in bed. Awake. Confused to time and place. Maintaining O2 saturation in the low 90s on 3 L/m per nasal cannula. Afebrile. Arterial blood gases on 28% FiO2 revealed a pO2 of 79, pCO2 38, pH 7.27. Nephrology is on regarding acute renal failure with a GFR of 7. Review of Systems ROS unobtainable: due to mental status Past Medical History Past Medical History: COPD, GERD/Reflux, Hearing Disorder / Deafness, Oste oarthritis (OA), Renal Disease Additional Past Medical History / Comment(s): Pt recently admitted to [facility] on 08/08/21 with left lower extremity DVT. 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 History of Any Multi-Drug Resistant Organisms: None Reported Past Surgical History: Hernia Repair, Hysterectomy, Tonsillectomy, Tubal Ligation Additional Past Surgical History / Comment(s): R inguinal hernia repair, colonoscopies Past Anesthesia/Blood Transfusion Reactions: No Reported Reaction, Postoperative Nausea & Vomiting (PONV) Past Psychological History: No Psychological Hx Reported Additional Psychological History / Comment(s): Pt resides with her spouse. She has home oxygen, nebulizer, cane and walker. Pt does not drive, her man takes her to appointments and lives nearby. Smoking Status: Former smoker Past Alcohol Use History: None Reported Additional Past Alcohol Use History / Comment(s): Pt started smoking approximately 1971 and quit approximately 2014. Past Drug Use History: None Reported - Past Family History Father Family Medical History: Cancer Additional Family Medical History / Comment(s): Lung cancer. Medications and Allergies Home Medications Medication Instructions Recorded Confirmed Type Mometasone/Formoterol [Dulera 200 2 puff INHALATION RT-BID 05/13/14 12/10/21 History Mcg-5 Mcg Inhaler] Denosumab [Prolia] 60 mg SQ Q180D 04/10/20 12/10/21 History Tiotropium 18 Mcg/Puff [Spiriva] 1 cap INHALATION RT-DAILY 04/10/20 12/10/21 History Ipratropium-Albuterol Nebulize 3 ml INHALATION RT-Q4H PRN ml 07/10/21 12/10/21 Rx [Duoneb 0.5 mg-3 mg/3 ml Soln] Ipratropium-Albuterol Nebulize 3 ml INHALATION RT-QID 30 Days 07/10/21 12/10/21 Rx [Duoneb 0.5 mg-3 mg/3 ml Soln] #120 each Albuterol Sulfate [Albuterol 2 puff INHALATION RT-Q6H PRN 08/08/21 12/10/21 History Sulfate Hfa] Acetaminophen Tab [Tylenol] 650 mg PO Q6HR PRN tab 08/09/21 12/10/21 Rx Apixaban [Eliquis] 5 mg PO BID 09/13/21 12/10/21 History Pantoprazole [Protonix] 40 mg PO AC-BRKFST 30 Days #30 tab 09/18/21 12/10/21 Rx Allergies Allergy/AdvReac Type Severity Reaction Status Date / Time sulfamethoxazole Allergy Unknown Verified 12/10/21 11:31 [From Bactrim] trimethoprim [From Bactrim] Allergy Unknown Verified 12/10/21 11:31 Physical Exam Vitals: Vital Signs Temp Pulse Pulse Pulse Resp BP Pulse Ox 12/11/21 15:15 19 12/11/21 12:14 90 12/11/21 12:05 94 12/11/21 12:00 98 18 161/65 91 L 12/11/21 10:21 91 19 12/11/21 10:14 91 19 171/69 93 L 12/11/21 08:54 89 12/11/21 04:00 98.6 F 100 20 152/94 96 12/11/21 02:00 100 18 12/11/21 00:00 100 18 142/86 95 12/10/21 21:22 90 12/10/21 21:12 95 96 12/10/21 20:00 98.8 F 96 22 149/70 94 L Intake and Output 12/11/21 12/11/21 12/11/21 06:59 14:59 22:59 Intake Total 240 Output Total 125 Balance 115 Intake: Oral 240 Output: Urine 125 Other: Voiding Method Indwelling Catheter Indwelling Catheter Indwelling Catheter # Voids 0 Weight 63.503 kg GENERAL EXAM: Alert, confused, poor historian, on 3 L nasal cannula, 71-year-old female, comfortable in no apparent distress. HEAD: Normocephalic. EYES: Normal reaction of pupils, equal size. NOSE: Clear with pink turbinates. THROAT: No erythema or exudates. NECK: No masses, no JVD. CHEST: No chest wall deformity. LUNGS: Equal air entry with crackles in the posterior bases, diminished. CVS: S1 and S2 normal with no audible murmur, regular rhythm. ABDOMEN: No hepatosplenomegaly, normal bowel sounds, no guarding or rigidity. SPINE: No scoliosis or deformity SKIN: No rashes CENTRAL NERVOUS SYSTEM: No focal deficits, tone is normal in all 4 extremities. EXTREMITIES: There is no peripheral edema. No clubbing, no cyanosis. Peripheral pulses are intact. Results - Laboratory Findings CBC and BMP: 12/11/21 07:36 12/11/21 07:36 ABG ABG pH 7.27 (7.35-7.45) L 12/11/21 15: ABG pCO2 38 mmHg (35-45) 12/11/21 15: ABG pO2 79 mmHg (83-108) L 12/11/21 15: ABG O2 Saturation 94.0 % (94-97) 12/11/21 15: PT/INR, D-dimer PT 12.0 sec (9.0-12.0) 12/10/21 10:01 INR 1.1 (<1.2) 12/10/21 10:01 Abnormal lab findings: Abnormal Labs 12/10/21 12/10/21 12/10/21 09:25 10:01 10:01 RBC 3.52 L Hgb MCV 100.6 H D Neutrophils # (Manual) Lymphocytes # (Manual) 0.68 L Metamyelocytes # (Man) ABG pH ABG pO2 ABG HCO3 Sodium 136 L Carbon Dioxide BUN 46 H Creatinine 3.86 H Glucose 158 H POC Glucose (mg/dL) 150 H Calcium AST 203 H ALT 83 H Troponin I Total Protein 6.2 L Albumin 3.1 L Procalcitonin 12/10/21 12/10/21 12/10/21 10:01 14:57 15:25 RBC Hgb MCV Neutrophils # (Manual) Lymphocytes # (Manual) Metamyelocytes # (Man) ABG pH ABG pO2 ABG HCO3 Sodium Carbon Dioxide BUN Creatinine Glucose POC Glucose (mg/dL) Calcium AST ALT Troponin I 0.080 H* 0.119 H* 0.117 H* Total Protein Albumin Procalcitonin 12/10/21 12/10/21 12/11/21 18:00 18:00 07:36 RBC 3.48 L Hgb 11.3 L MCV 102.0 H Neutrophils # (Manual) 8.00 H Lymphocytes # (Manual) Metamyelocytes # (Man) 0.10 H ABG pH ABG pO2 ABG HCO3 Sodium Carbon Dioxide BUN Creatinine Glucose POC Glucose (mg/dL) Calcium AST ALT Troponin I 0.125 H* Total Protein Albumin Procalcitonin 6.11 H 12/11/21 12/11/21 07:36 15:22 RBC Hgb MCV Neutrophils # (Manual) Lymphocytes # (Manual) Metamyelocytes # (Man) ABG pH 7.27 L ABG pO2 79 L ABG HCO3 18 L Sodium Carbon Dioxide 19 L BUN 65 H Creatinine 6.00 H Glucose POC Glucose (mg/dL) Calcium 8.3 L AST ALT Troponin I Total Protein Albumin Procalcitonin - Diagnostic Findings Chest x-ray: image reviewed Assessment and Plan Assessment: Altered mental status of unclear etiology suspect secondary to acute kidney injury and urinary tract infection. Pro-calcitonin 6.11 Urinary tract infection secondary to gram-negative bacilli Acute kidney injury, current creatinine 6.00 with a GFR of 7. Creatinine in S 2021 is 1.34 with a GFR of 41 Acute on chronic hypoxemic respiratory failure secondary to mild fluid volume overload, possible diastolic congestive heart failure Acute on chronic exacerbation of COPD secondary to above, oxygen dependent, FEV1 value 30% of predicted Chronic hypoxic respiratory failure related to advanced COPD, maintained on Dulera, Spiriva, albuterol and home oxygen at 2 L Chronic smoking History of GERD/reflux Left lower extremity DVT, on Eliquis, 2021 Benign colon polyps Osteoporosis/osteoarthritis Chronic back pain Poor overall functional performance based on the above-mentioned multiple comorbidities Plan: The patient was seen and evaluated Chest x-ray, medications and labs reviewed Continue Pulmicort, add performance, IV Solu-Medrol Titrate the FiO2 as tolerated Add antibiotics in the form of Zosyn Normal saline at 75 ML's per hour Nephrology is on the case Received Lasix 80 mg IVP 1 today Closely monitor electrolytes and kidney function Prognosis is guarded We will continue to follow and make further recommendations based on her clinical status I have personally seen and examined the patient, performed the documentation and the assessment and plan as written. Number of minutes spent on the visit: 20.
[2021-12-11] MEDS: SODIUM CHLORIDE 0.9% 1,000 ML IV SCH (16:45)
[2021-12-11] MEDS: methylPREDNISolone SOD SUCCI 125 MG/2 ML VIAL IV SCH ×2 (16:45→23:49)
[2021-12-11] MEDS ORDERED: propofoL 100 ML IV ONE (17:49)
[2021-12-11 17:53] LABS: Glucose,Whole Blood 111 mg/dL (70-110)
[2021-12-11 18:28] LABS: Glucose,Whole Blood 136 mg/dL (70-110)
--- NOTE | 2021-12-11 18:37 | CT ---
EXAMINATION TYPE: CT brain wo con CT DLP: 1135.4 mGycm, Automated exposure control for dose reduction was used. DATE OF EXAM: 12/11/2021 6:26 PM COMPARISON: 12/10/2021. CLINICAL INDICATION:Female, 71 years old with history of seizure, seizure/ AMS TECHNIQUE: Brain: Axial CT images of the brain were obtained with coronal and sagittal reformats created and rev iewed. Contrast used: None. Oral contrast used: None. FINDINGS: Brain: Extra-axial spaces: No abnormal extra-axial fluid collections. Ventricular system: Dilatation in proportion to cerebral atrophy. Cerebral parenchyma: Cerebral atrophy. No acute intraparenchymal hemorrhage or mass effect. The francois -white junction is well differentiated. Cerebellum: Unremarkable. Mass effect: No evidence of midline shift. Intracranial vasculature: Atherosclerotic calcifications of the intracranial vessels. Soft tissues: Normal. Calvarium/osseous structures: No depressed skull fracture. Paranasal sinuses and mastoid air cells: Mild scattered paranasal sinus disease. Visualized orbits: Orbital contents are intact. IMPRESSION: 1. No acute intracranial process. No significant change from one day prior 2. Mild cerebral atrophy.
--- NOTE | 2021-12-11 18:51 | XR ---
EXAMINATION TYPE: XR chest 1V portable DATE OF EXAM: 12/11/2021 6:41 PM COMPARISON: Chest radiographs from TECHNIQUE: XR chest 1V portable Portable AP radiograph of the chest. CLINICAL INDICATION:Female, 71 years old with history of POST intubation/OG placement; FINDINGS: Lungs/Pleura: There is flattening of the diaphragm with increased lucency of the lungs. No evidence o f pneumothorax, pleural effusion or focal consolidation. Prominent interstitial lung markings are see n scattered throughout the lungs. Pulmonary vascularity: Unremarkable. Heart/mediastinum: Cardiomediastinal silhouette is unremarkable. Musculoskeletal: No acute osseous pathology. Lines/Tubes: Endotracheal tube with distal tip 4.4 cm above the candi Nasogastric tube with side-port projecting over the distal esophagus. IMPRESSION: 1. No acute cardiopulmonary disease/process. 2. Nasogastric tube with side-port near the distal esophagus consider advancement of 9 cm for optima l placement. 3. Endotracheal tube in appropriate position. 4. COPD changes.
--- NOTE | 2021-12-11 19:00 | P.PN ---
Progress Note - Text Progress Note Date: 12/11/21 Code was called on the patient as she was minimally responsive and had agonal breathing. Per nurse patient had a seizure prior to this episode. Patient was hemodynamically stable. While I was in the room patient was moving her hands spontaneously. However she had no purposeful movements. Patient was intubated successfully. I did review her labs. I believe that she may have had a seizure due to the metabolic acidosis. I stat CT head was done that was unremarkable. Stat labs are also pending. Patient will be transferred to the ICU for further monitoring. Neurology has also been consulted. Patient started on a propofol drip.
[2021-12-11 19:02] LABS: HCT 35.6 % (34.0-46.0); HGB 11.2 gm/dL (11.4-16.0); Hypochromasia Marked; MCH 32.8 pg (25.0-35.0); MCHC 31.5 g/dL (31.0-37.0); MCV 104.2 fL (80.0-100.0); Macrocytosis Slight; Mean Platelet Volume 7.8; Platelet Count 246 k/uL (150-450); RBC 3.42 m/uL (3.80-5.40); RDW 13.9 % (11.5-15.5); WBC 7.9 k/uL (3.8-10.6)
[2021-12-11 19:15] LABS: Calcium 8.1 mg/dL (8.4-10.2); Magnesium 1.9 mg/dL (1.6-2.3); Potassium 4.6 mmol/L (3.5-5.1)
[2021-12-11 19:31] LABS: ABG Base Excess -8.1 mmol/L; ABG HCO3 19 mmol/L (21-25); ABG PCO2 42 mmHg (35-45); ABG PH 7.27 (7.35-7.45); ABG PO2 >400 mmHg (83-108); ABG TCO2 20 mmol/L (19-24); Allen Test Performed? Yes
[2021-12-11] MEDS: FORMOTEROL FUMARATE 20 MCG/2 ML NEBU INHALATION SCH (19:47)
[2021-12-11] MEDS: PIPERACILLIN-TAZOBACTAM 3.375 GM in SODIUM CHLORIDE 0.9% 100 ML IVPB SCH (19:56)
[2021-12-11] MEDS: CHLORHEXIDINE GLUCONATE 15 ML CUP MUCOUS MEM SCH (19:57)
--- NOTE | 2021-12-11 21:44 | OP ---
OPERATIVE REPORT PREOPERATIVE DIAGNOSIS: Acute chronic renal failure. POSTOPERATIVE DIAGNOSIS: Acute chronic renal failure. PROCEDURE PERFORMED: Ultrasound-guided dialysis catheter placement, right femoral approach. DESCRIPTION OF PROCEDURE: The patient was brought to the laborer concrete paving. Right groin was prepped and draped in appropriate sterile manner. 1% lidocaine plain infiltrated. Ultrasound-guided micropuncture introduced into the right femoral vein. Micropuncture guidewire was passed and a 4-Beninese dilator was advanced on the top of the guidewire. After that, we passed a regular guidewire and dilator was advanced on the top of the guidewire. Then, we placed a triple-lumen dialysis catheter, flushed with heparin saline and hep-locked, secured with 3-0 nylon. The patient tolerated the procedure well. MMODL / IJN: [id number] /
[2021-12-12 04:07] LABS: Basophils % (A) 0 %; Eosinophils % (A) 0 %; HCT 32.2 % (34.0-46.0); HGB 10.3 gm/dL (11.4-16.0); Hypochromasia Marked; Lymphocytes # (A) 0.6 k/uL (1.0-4.8); Lymphocytes % (A) 9 %; MCH 32.9 pg (25.0-35.0); MCHC 31.9 g/dL (31.0-37.0); MCV 103.3 fL (80.0-100.0); Macrocytosis Slight; Mean Platelet Volume 8.4; Monocytes # (A) 0.1 k/uL (0-1.0); Monocytes % (A) 1 %; Neutrophils # (A) 6.5 k/uL (1.3-7.7); Neutrophils % (A) 87 %; Platelet Count 224 k/uL (150-450); RBC 3.12 m/uL (3.80-5.40); RDW 14.3 % (11.5-15.5); WBC 7.5 k/uL (3.8-10.6)
[2021-12-12] MEDS: SODIUM CHLORIDE 0.9% 1,000 ML IV SCH ×2 (04:33→20:05)
[2021-12-12 04:41] LABS: Calcium 7.7 mg/dL (8.4-10.2); Potassium 4.9 mmol/L (3.5-5.1)
[2021-12-12] MEDS ORDERED: DEXTROSE 50% SYRINGE 50 ML IVP PRN ×2 (04:48)
[2021-12-12] MEDS ORDERED: INSULIN ASPART (NovoLOG) 100 UNIT/ML VIAL SQ SCH (05:00)
[2021-12-12] MEDS: methylPREDNISolone SOD SUCCI 125 MG/2 ML VIAL IV SCH ×3 (05:00→17:16)
--- NOTE | 2021-12-12 05:20 | PN ---
PROGRESS NOTE DATE OF SERVICE: 12/11/2021 SUBJECTIVE: This 71-year-old woman, who was admitted with acute renal failure, has worsening renal failure. Urine output is also very minimal at this time. The patient also has some change in mental status. CT of the brain, which I reviewed personally showed mild-to- moderate diffuse atrophy. Otherwise, Dr. Goode saw the patient, recommended IV Lasix and possibly hemodialysis if there is not enough response. The chest x-ray, which was reviewed personally by me showed bilateral interstitial edema. PAST MEDICAL HISTORY: Could not be taken. REVIEW OF SYSTEMS: Could not be taken. CURRENT MEDICATIONS: Reviewed and include Perforomist and breathing treatments, and dose and rest of the medication noted. PHYSICAL EXAMINATION: VITAL SIGNS: Pulse is 98, blood pressure 161/64, respirations 18, the pulse ox 91% on 3 L. HEENT: Conjunctivae normal. NECK: No JVD. CARDIOVASCULAR: S1, S2. RESPIRATION: Breath sounds diminished at the bases. A few scattered rhonchi. ABDOMEN: Soft. LEGS: No edema. NERVOUS SYSTEM: Diffusely weak. LABORATORY DATA: ABGs, the pH is 7.27 and bicarb is 18. ASSESSMENT: 1. Change in mental status, acute metabolic encephalopathy secondary to acute renal failure. 2. Acute renal failure. 3. Congestive heart failure and chronic obstructive pulmonary disease acute exacerbation. 4. Troponin indeterminate at 0.119. 5. Degenerative joint disease. 6. Multiple medical issues. 7. Severe metabolic acidosis. RECOMMENDATIONS: I recommend to continue current medications and symptomatic treatment. Continue with bronchodilators. Continue with rest of the medication. Continue with Lasix per recommendation per Dr. Goode, possibly hemodialysis. Closely follow with Pulmonary. Prognosis is extremely guarded because of multiple complex medical issues. The patient may have to be transferred to ICU if her condition worsens at this time. Further recommendations to follow. MMODL / IJN: [id number] /
[2021-12-12 05:36] LABS: ABG Base Excess -9.6 mmol/L; ABG HCO3 17 mmol/L (21-25); ABG Oxygen Saturation 98.9 % (94-97); ABG PCO2 36 mmHg (35-45); ABG PH 7.28 (7.35-7.45); ABG PO2 135 mmHg (83-108); ABG TCO2 18 mmol/L (19-24); Allen Test Performed? Yes
--- NOTE | 2021-12-12 07:16 | XR ---
EXAMINATION TYPE: XR chest 1V portable DATE OF EXAM: 12/12/2021 6:14 AM COMPARISON: Chest radiographs from 12/11/2021 TECHNIQUE: XR chest 1V portable Frontal view of the chest. CLINICAL INDICATION:Female, 71 years old with history of Tube placement; FINDINGS: Lungs/Pleura: There is flattening of the diaphragm with increased lucency of the lungs. No evidence o f pneumothorax pleural effusion. Left basilar patchy airspace disease. Prominent interstitial lung ma rkings are seen scattered throughout the lungs. Heart/mediastinum: Cardiomediastinal silhouette is unremarkable. Atherosclerotic calcifications are seen in the aorta. Musculoskeletal: No acute osseous pathology. Other findings: None Lines/Tubes: Endotracheal tube with distal tip 4.5 cm above the candi Nasogastric tube with its distal tip and side-port projecting under the diaphragm. IMPRESSION: 1. Appropriate position of endotracheal and NG tubes. 2. Left basilar patchy airspace disease which may represent atelectasis versus infiltrate. 3. COPD changes.
[2021-12-12] MEDS: IPRATROPIUM-ALBUTEROL 3 ML NEB INHALATION SCH ×4 (07:17→20:53)
[2021-12-12] MEDS: BUDESONIDE 1 MG/2 ML NEBU INHALATION SCH ×2 (07:17→20:53)
[2021-12-12] MEDS: FORMOTEROL FUMARATE 20 MCG/2 ML NEBU INHALATION SCH ×2 (07:31→20:53)
[2021-12-12] MEDS: PIPERACILLIN-TAZOBACTAM 3.375 GM in SODIUM CHLORIDE 0.9% 100 ML IVPB SCH ×2 (08:04→20:05)
[2021-12-12] MEDS: CHLORHEXIDINE GLUCONATE 15 ML CUP MUCOUS MEM SCH ×2 (08:04→20:06)
[2021-12-12] MEDS: PANTOPRAZOLE 40 MG/10 ML VIAL IV SCH (08:04)
[2021-12-12] MEDS: APIXABAN 5 MG TAB PO SCH ×2 (08:04→20:06)
[2021-12-12] MEDS: ACETAMINOPHEN TAB 325 MG TAB PO PRN (08:08)
[2021-12-12] MEDS: DEXTROSE 5% IN WATER 1,000 ML with SODIUM BICARB (1 MEQ/ML) 150 ML IV SCH (10:16)
--- NOTE | 2021-12-12 11:20 | P.PN ---
Subjective Progress Note Date: 12/12/21 Principal diagnosis: Altered mental status, suspected new onset seizures This 71-year-old female patient who presented to the emergency room yesterday via EMS as her family had noted a 4 day history of generalized weakness and confusion. She has a known history of advanced chronic obstructive pulmonary disease with previous history of heavy tobacco dependence. Her FEV1 ranges between 30 and 35% of predicted. She is maintained on Dulera, Spiriva and albuterol in the outpatient setting. She has a nebulizer for treatments as well. She is also oxygen dependent on 2 L at home. She was discharged One month ago for an acute on chronic hypoxic respiratory failure secondary to COPD exacerbation without clear evidence of pneumonia. Chest x-ray showing bilateral interstitial edema on background bilateral chronic parenchymal changes. Most likely fluid overload state. Echocardiogram reveals preserved left ventricular systolic ejection fraction of 50-55%. Basilar inferior hypokinesis. No pericardial effusion. Computed tomography scan of the brain revealed no acute intracranial hemorrhage or midline shift. There is [id number] diffuse age-related cerebral atrophy and mild chronic small vessel ischemic changes noted. Follow-up chest x-ray continues show some interstitial changes. Evidence of emphysema. Urine culture is positive for gram-negative bacilli. Blood cultures are pending. White count 10.1. Hemoglobin 11.3. Sodium 139. Potassium 4.3. Bicarb 19. BUN 65. Creatinine 6.00. Pro calcitonin 6.11. Troponin leak at 0.11, 0.11, 0.12. ProBNP 15,600. Ocampo virus not detected. Influenza screen negative. She's been initiated on DuoNeb inhalations, Pulmicort inhalations. Anticoagulated with Eliquis. She is seen today in consultation on the selective care unit. She is currently resting in bed. Awake. Confused to time and place. Maintaining O2 saturation in the low 90s on 3 L/m per nasal cannula. Afebrile. Arterial blood gases on 28% FiO2 revealed a pO2 of 79, pCO2 38, pH 7.27. Nephrology is on regarding acute renal failure with a GFR of 7. Reevaluated today on 12/12/21, patient developed a sudden onset seizure yesterda y and this was witnessed, this was noted shortly after dialysis was started. Patient never lost her pulse, however she was post ictal after the seizure, and her breathing was noted to be agonal. Hence the patient was intubated by [facility], sent down for a CT of the head which was normal, transferred to ICU on mechanical ventilation. Patient is yet to be seen by neurology on consultation, she had EEG and CT of the head yesterday. Today she is on mechanical ventilation, assist control rate of 20, volume of 500 FiO2 30% and PEEP of 5. ABG showed a pO2 of 135 pCO2 36 pH of 7.28, hence the changes made included increase FiO2 up to 35% increase tidal volume down to 450 increase respiratory rate to 22 started patient on a bicarb drip at 50 mL per hour and cut down her IV fluid to 50 mL per hour. Considering her hemodynamic status, and considering the patient isn't requiring dialysis, a right radial arterial line was placed on emergent basis. Patient had no urine output yesterday, she is scheduled to undergo dialysis again today. CT of the brain was negative. Ultrasound of the kidneys showed left sided hydronephrosis. Right kidney seems to be intact. Patient is on propofol at 50 mcg/kg/m, she is not requiring any pressors. She is fully sedated, however I plan to cut down on the propofol, and hopefully assess mental status off propofol. This will be done later today after the p atient is dialyzed, and after seen by neurology consider starting the patient on seizure medications, likely Keppra. EEG is yet to be evaluated by neurology. WBC count today is 7.5 hemoglobin is 10.3. Basic metabolic profile is normal renal profile showed a BUN of 64 creatinine 6.63. Patient is now on eliquis 5 mg by mouth twice a day Pulmicort [facility], [facility], she is also on a bicarb drip at 50 mL per hour, insulin as per protocol, DuoNeb, Solu-Medrol 60 mg IV push every 6 hours, Protonix 40 mg IV push daily, Zosyn empirically, since her chest x-rays showing possible left lo wer lobe new infiltrate. Patient was noted to have evidence of possible UTI, and she also had elevated pro calcitonin level on admission. Objective - Vital Signs Vital signs: Vital Signs Temp 98.6 F 12/12/21 08:00 Pulse 84 12/12/21 11:00 Resp 12 12/12/21 11:00 BP 141/77 12/12/21 09:00 Pulse Ox 95 12/12/21 11:00 FiO2 35 12/12/21 10:55 Intake & Output 12/11/21 12/12/21 12/12/21 18:59 06:59 18:59 Intake Total 1115.712 349.000 Output Total 305 0 Balance 810.712 349.000 Weight 63.503 kg 63.5 kg 63.5 kg Intake: IV 460 260 Piperacillin-Tazobactam 3 100 100 .375 gm In Sodium Chloride 0.9% 100 ml @ 25 mls/hr IVPB Q12HR [facility] Rx #:[id number] Sodium Chloride 0.9% 1, 360 160 000 ml @ 50 mls/hr IV . Q20H [facility] Rx#:[id number] Intake, IV Titration 155.712 89.000 Amount propofoL 1,000 mg In 155.712 89.000 Empty Bag 1 bag @ 15 MCG/ KG/MIN 5.715 mls/hr IV . [id number] [facility] Rx#:[id number] Hemodialysis 500 Output: Urine 5 0 Hemodialysis 300 Other: Voiding Method Indwelling Catheter Indwelling Catheter Indwelling Catheter # Voids 0 ABP, PAP, CO, CI - Last Documented Arterial Blood Pressure 133/48 - Exam Physical Exam: Revealed 71-year-old female, intubated, mechanically ventilated, sedated, on propofol. Head: Atraumatic, normocephalic. HEENT:[Neck is supple.] [No neck masses.] [No thyromegaly.] [No JVD.] Endotracheal tube and orogastric tube are intact. Chest: [Symmetrical chest expansion, scattered rhonchi and crackles at the bases bilaterally. Cardiac Exam: [Normal S1 and S2, no S3 gallop, no murmur.] Abdomen: [Soft, nontender, no megaly, no rebound, no guarding, normal bowel sounds.] Extremities: [No clubbing, no edema, no cyanosis.] Good pulses bilaterally. Musculoskeletal: No deformities. Neurological Exam: Cannot assess, patient is sedated on propofol, Psychiatric: Could not assess. - Labs CBC & Chem 7: 12/12/21 03:31 12/12/21 03:31 Labs: Abnormal Lab Results - Last 24 Hours (Table) 12/11/21 12/11/21 12/11/21 Range/Units 15:22 17:51 18:27 RBC (3.80-5.40) m/uL Hgb (11.4-16.0) gm/dL Hct (34.0-46.0) % MCV (80.0-100.0) fL Lymphocytes # (1.0-4.8) k/uL ABG pH 7.27 L (7.35-7.45) ABG pO2 79 L (83-108) mmHg ABG HCO3 18 L (21-25) mmol/L ABG Total CO2 (19-24) mmol/L ABG O2 Saturation (94-97) % Carbon Dioxide (22-30) mmol/L BUN (7-17) mg/dL Creatinine (0.52-1.04) mg/dL Glucose (74-99) mg/dL POC Glucose (mg/dL) 111 H 136 H (70-110) mg/dL Plasma Lactic Acid Javier (0.7-2.0) mmol/L Calcium (8.4-10.2) mg/dL Troponin I (0.000-0.034) ng/mL 12/11/21 12/11/21 12/11/21 Range/Units 18:41 18:41 18:41 RBC 3.42 L (3.80-5.40) m/uL Hgb 11.2 L (11.4-16.0) gm/dL Hct (34.0-46.0) % MCV 104.2 H (80.0-100.0) fL Lymphocytes # (1.0-4.8) k/uL ABG pH (7.35-7.45) ABG pO2 (83-108) mmHg ABG HCO3 (21-25) mmol/L ABG Total CO2 (19-24) mmol/L ABG O2 Saturation (94-97) % Carbon Dioxide (22-30) mmol/L BUN (7-17) mg/dL Creatinine (0.52-1.04) mg/dL Glucose (74-99) mg/dL POC Glucose (mg/dL) (70-110) mg/dL Plasma Lactic Acid Javier 2.9 H* (0.7-2.0) mmol/L Calcium (8.4-10.2) mg/dL Troponin I 0.168 H* (0.000-0.034) ng/mL 12/11/21 12/11/21 12/12/21 Range/Units 18:41 19:29 03:31 RBC 3.12 L (3.80-5.40) m/uL Hgb 10.3 L (11.4-16.0) gm/dL Hct 32.2 L (34.0-46.0) % MCV 103.3 H (80.0-100.0) fL Lymphocytes # 0.6 L (1.0-4.8) k/uL ABG pH 7.27 L (7.35-7.45) ABG pO2 >400 H (83-108) mmHg ABG HCO3 19 L (21-25) mmol/L ABG Total CO2 (19-24) mmol/L ABG O2 Saturation 100.0 H (94-97) % Carbon Dioxide 15 L (22-30) mmol/L BUN 54 H (7-17) mg/dL Creatinine 5.61 H (0.52-1.04) mg/dL Glucose 126 H (74-99) mg/dL POC Glucose (mg/dL) (70-110) mg/dL Plasma Lactic Acid Javier (0.7-2.0) mmol/L Calcium 8.1 L (8.4-10.2) mg/dL Troponin I (0.000-0.034) ng/mL 12/12/21 12/12/21 Range/Units 03:31 05:35 RBC (3.80-5.40) m/uL Hgb (11.4-16.0) gm/dL Hct (34.0-46.0) % MCV (80.0-100.0) fL Lymphocytes # (1.0-4.8) k/uL ABG pH 7.28 L (7.35-7.45) ABG pO2 135 H (83-108) mmHg ABG HCO3 17 L (21-25) mmol/L ABG Total CO2 18 L (19-24) mmol/L ABG O2 Saturation 98.9 H (94-97) % Carbon Dioxide 15 L (22-30) mmol/L BUN 64 H (7-17) mg/dL Creatinine 6.63 H (0.52-1.04) mg/dL Glucose 165 H (74-99) mg/dL POC Glucose (mg/dL) (70-110) mg/dL Plasma Lactic Acid Javier (0.7-2.0) mmol/L Calcium 7.7 L (8.4-10.2) mg/dL Troponin I (0.000-0.034) ng/mL Microbiology - Last 24 Hours (Table) 12/10/21 10:01 Urine Culture - Final Urine,Voided Escherichia coli 12/11/21 23:50 Sputum Culture - Preliminary Sputum 12/10/21 10:35 Blood Culture - Preliminary Blood No Growth after 24 hours 12/10/21 10:59 Blood Culture - Preliminary Blood No Growth after 24 hours Assessment and Plan Assessment: Impression: Acute respiratory failure secondary to new onset seizure, post ictal phase, breathing was noted to be agonal has the patient was intubated by [facility] and placed on mechanical ventilation. Acute on chronic hypoxic respiratory failure secondary to underlying COPD and possibly acute diastolic congestive heart failure. Patient has severe COPD, she is on home O2, FEV1 is 30%. Acute E. coli urinary tract infection New-onset seizures Chronic smoking History of left lower extremity DVT, maintained on eliquis Chronic back pain History of GERD Acute kidney injury, patient is requiring hemodialysis her baseline creatinine back in October was 1.34. GFR was 41 the patient developed acute on chronic kidney injury. Recommendation: Continue ventilatory support Start the nutritional support Hemodynamic support if necessary GI and DVT prophylaxis Continue antibiotics/Zosyn Continue bronchodilators. Continue hemodialysis. Neurology consultation to address her new onset seizures and evaluate EEG which was done yesterday. Tapered down propofol and assess mental status and possibly weaning later today or possibly in the next 24 hours. Continue to monitor closely electrolytes and renal functioning Start bicarb drip for metabolic acidosis secondary to acute kidney injury and renal failure Continue eliquis for her history of DVT Prognosis is guarded. Critical care time is over 30 minutes not including the time spent on procedures Time with Patient: Greater than 30
--- NOTE | 2021-12-12 11:24 | P.PN ---
Subjective Patient is seen for follow-up for acute kidney injury. Patient was admitted to the hospital with generalized weakness and confusion. Yesterday when patient was seen her creatinine had increased from 3.8 on admission to 6.0. Patient had been confused and mentation had changed since the morning. Patient was also complaining of shortness of breath. There was no significant urine output. Patient did have a Santos catheter. Given the significant deterioration in renal function with altered mentation and volume overload patient was started on dialysis yesterday. During treatment after about 1 hour into treatment patient was noted to have a s eizure. Treatment was stopped and patient was transferred to the ICU. She was intubated. There has not been any further seizures. Continue to have no significant urine output Patient is hemodynamically stable with no pressors. Urine culture is growing gram-negative bacilli. Objective - Vital Signs Vital signs: Vital Signs Temp 98.6 F 12/12/21 08:00 Pulse 85 12/12/21 11:10 Resp 12 12/12/21 11:00 BP 141/77 12/12/21 09:00 Pulse Ox 95 12/12/21 11:00 FiO2 35 12/12/21 10:55 Intake & Output 12/11/21 12/12/21 12/12/21 18:59 06:59 18:59 Intake Total 1115.712 349.000 Output Total 305 0 Balance 810.712 349.000 Weight 63.503 kg 63.5 kg 63.5 kg Intake: IV 460 260 Piperacillin-Tazobactam 3 100 100 .375 gm In Sodium Chloride 0.9% 100 ml @ 25 mls/hr IVPB Q12HR [facility] Rx #:[id number] Sodium Chloride 0.9% 1, 360 160 000 ml @ 50 mls/hr IV . Q20H [facility] Rx#:[id number] Intake, IV Titration 155.712 89.000 Amount propofoL 1,000 mg In 155.712 89.000 Empty Bag 1 bag @ 15 MCG/ KG/MIN 5.715 mls/hr IV . [id number] [facility] Rx#:[id number] Hemodialysis 500 Output: Urine 5 0 Hemodialysis 300 Other: Voiding Method Indwelling Catheter Indwelling Catheter Indwelling Catheter # Voids 0 ABP, PAP, CO, CI - Last Documented Arterial Blood Pressure 133/48 - Exam Patient is currently sedated and on the vent Examination of the heart S1 and S2 Examination of the lungs bilateral breath sounds are heard Abdomen is soft nontender Examination of the lower extremities shows no evidence of edema [employer] exam cannot be performed - Labs CBC & Chem 7: 12/12/21 03:31 12/12/21 03:31 Labs: Abnormal Lab Results - Last 24 Hours (Table) 12/11/21 12/11/21 12/11/21 Range/Units 15:22 17:51 18:27 RBC (3.80-5.40) m/uL Hgb (11.4-16.0) gm/dL Hct (34.0-46.0) % MCV (80.0-100.0) fL Lymphocytes # (1.0-4.8) k/uL ABG pH 7.27 L (7.35-7.45) ABG pO2 79 L (83-108) mmHg ABG HCO3 18 L (21-25) mmol/L ABG Total CO2 (19-24) mmol/L ABG O2 Saturation (94-97) % Carbon Dioxide (22-30) mmol/L BUN (7-17) mg/dL Creatinine (0.52-1.04) mg/dL Glucose (74-99) mg/dL POC Glucose (mg/dL) 111 H 136 H (70-110) mg/dL Plasma Lactic Acid Javier (0.7-2.0) mmol/L Calcium (8.4-10.2) mg/dL Troponin I (0.000-0.034) ng/mL 12/11/21 12/11/21 12/11/21 Range/Units 18:41 18:41 18:41 RBC 3.42 L (3.80-5.40) m/uL Hgb 11.2 L (11.4-16.0) gm/dL Hct (34.0-46.0) % MCV 104.2 H (80.0-100.0) fL Lymphocytes # (1.0-4.8) k/uL ABG pH (7.35-7.45) ABG pO2 (83-108) mmHg ABG HCO3 (21-25) mmol/L ABG Total CO2 (19-24) mmol/L ABG O2 Saturation (94-97) % Carbon Dioxide (22-30) mmol/L BUN (7-17) mg/dL Creatinine (0.52-1.04) mg/dL Glucose (74-99) mg/dL POC Glucose (mg/dL) (70-110) mg/dL Plasma Lactic Acid Javier 2.9 H* (0.7-2.0) mmol/L Calcium (8.4-10.2) mg/dL Troponin I 0.168 H* (0.000-0.034) ng/mL 12/11/21 12/11/21 12/12/21 Range/Units 18:41 19:29 03:31 RBC 3.12 L (3.80-5.40) m/uL Hgb 10.3 L (11.4-16.0) gm/dL Hct 32.2 L (34.0-46.0) % MCV 103.3 H (80.0-100.0) fL Lymphocytes # 0.6 L (1.0-4.8) k/uL ABG pH 7.27 L (7.35-7.45) ABG pO2 >400 H (83-108) mmHg ABG HCO3 19 L (21-25) mmol/L ABG Total CO2 (19-24) mmol/L ABG O2 Saturation 100.0 H (94-97) % Carbon Dioxide 15 L (22-30) mmol/L BUN 54 H (7-17) mg/dL Creatinine 5.61 H (0.52-1.04) mg/dL Glucose 126 H (74-99) mg/dL POC Glucose (mg/dL) (70-110) mg/dL Plasma Lactic Acid Javier (0.7-2.0) mmol/L Calcium 8.1 L (8.4-10.2) mg/dL Troponin I (0.000-0.034) ng/mL 12/12/21 12/12/21 Range/Units 03:31 05:35 RBC (3.80-5.40) m/uL Hgb (11.4-16.0) gm/dL Hct (34.0-46.0) % MCV (80.0-100.0) fL Lymphocytes # (1.0-4.8) k/uL ABG pH 7.28 L (7.35-7.45) ABG pO2 135 H (83-108) mmHg ABG HCO3 17 L (21-25) mmol/L ABG Total CO2 18 L (19-24) mmol/L ABG O2 Saturation 98.9 H (94-97) % Carbon Dioxide 15 L (22-30) mmol/L BUN 64 H (7-17) mg/dL Creatinine 6.63 H (0.52-1.04) mg/dL Glucose 165 H (74-99) mg/dL POC Glucose (mg/dL) (70-110) mg/dL Plasma Lactic Acid Javier (0.7-2.0) mmol/L Calcium 7.7 L (8.4-10.2) mg/dL Troponin I (0.000-0.034) ng/mL Microbiology - Last 24 Hours (Table) 12/10/21 10:01 Urine Culture - Final Urine,Voided Escherichia coli 12/11/21 23:50 Sputum Culture - Preliminary Sputum 12/10/21 10:35 Blood Culture - Preliminary Blood No Growth after 24 hours 12/10/21 10:59 Blood Culture - Preliminary Blood No Growth after 24 hours Assessment and Plan Assessment: 1. Acute kidney injury most likely ATN currently oliguric. Serum creatinine has increased significantly. Currently not on any nephrotoxic agents. Blood pressure is not low. Patient has an indwelling Santos catheter. UA is not available. 2. CHF exacerbation acute, possibly systolic. Ejection fraction not available at this time. Current chest x-ray does not appear to have significant pulmonary vascular congestion. Patient has been started on IV fluids 3. Mental status changes possibly related to uremia with acute advanced kidney injury 4. Chronic kidney disease with previous creatinine at 1.3, NKF stage IIIB, etiology likely nephrosclerosis with history of possible left renal atrophy according to the notes. 5. UTI with urine culture growing E. coli 6. Lactic acidosis associated with underlying infection 7. Metabolic acidosis associated with acute kidney injury currently on bicarb drip. Expect further improvement with dialysis Plan: Repeat hemodialysis today Continue with antibiotics May continue with IV fluids as patient does not appear to be significantly v olume overloaded today.
--- NOTE | 2021-12-12 11:59 | P.CNNES ---
History of Present Illness Consult date: 12/11/21 Requesting physician: Brooklynn Guillen Reason for Consult: Seizure History of Present Illness: Patient is a 71-year-old female who came to the hospital yesterday at 9:20 AM by ambulance for evaluation of generalized weakness, confusion and altered mental status. According to ED report, since symptoms have progressed over the previous 4 days. Patient while on the floor in 382, had altered mental status, code blue was called at 5:45 PM. Patient was receiving first hemodialysis treatment. About 1 hour into hemodialysis, patient had a seizure-like activity, that lasted for 30 seconds to a minute. Thereafter patient developed agonal breathing, but did not lose her pulse. A-team was activated. Chest x-ray, lac tated ABG were done. Patient was unresponsive with agonal breathing. Patient was intubated and transferred to ICU. Patient never lost her pulse. Her vitals were stable with blood pressure 125/74, pulse 96. CT head showed no acute intracranial process. I personally reviewed CT head, and due to the findings. Patient was seen in the ICU. Patient currently on propofol 40 g per program per minute. Patient withdraws well to painful stimuli. Please refer to examination below. Vital signs on arrival blood pressure 181/92. Pulse rate was 112, temperature 99.6. Blood test shows normal CBC with elevated MCV 100.6. PT/PTT normal, sodium 136 potassium 4.5. BUN 46, creatinine 3.86. AST 203, ALT 83. Troponins are mildly elevated. Coronal virus PCR negative. Influenza screen negative. Chest x-ray showed no acute process. NG tube in place. ET tube in appropriate position. COPD changes. Review of Systems Patient's family could not be reached. Patient's nurse does not know any more details, except as mentioned above. ROS unobtainable: due to endotracheal tube, due to mental status Past Medical History Past Medical History: COPD, GERD/Reflux, Hearing Disorder / Deafness, Osteoarthr itis (OA), Renal Disease Additional Past Medical History / Comment(s): Pt recently admitted to [facility] on 08/08/21 with left lower extremity DVT. 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 History of Any Multi-Drug Resistant Organisms: None Reported Past Surgical History: Hernia Repair, Hysterectomy, Tonsillectomy, Tubal Ligation Additional Past Surgical History / Comment(s): R inguinal hernia repair, colonoscopies Past Anesthesia/Blood Transfusion Reactions: No Reported Reaction, Postoperative Nausea & Vomiting (PONV) Past Psychological History: No Psychological Hx Reported Additional Psychological History / Comment(s): Pt resides with her spouse. She has home oxygen, nebulizer, cane and walker. Pt does not drive, her man takes her to appointments and lives nearby. Smoking Status: Former smoker Past Alcohol Use History: None Reported Additional Past Alcohol Use History / Comment(s): Pt started smoking approximately 1971 and quit approximately 2014. Past Drug Use History: None Reported - Past Family History Father Family Medical History: Cancer Additional Family Medical History / Comment(s): Lung cancer. Medications and Allergies Home Medications Medication Instructions Recorded Confirmed Type Mometasone/Formoterol [Dulera 200 2 puff INHALATION RT-BID 05/13/14 12/10/21 History Mcg-5 Mcg Inhaler] Denosumab [Prolia] 60 mg SQ Q180D 04/10/20 12/10/21 History Tiotropium 18 Mcg/Puff [Spiriva] 1 cap INHALATION RT-DAILY 04/10/20 12/10/21 History Ipratropium-Albuterol Nebulize 3 ml INHALATION RT-Q4H PRN ml 07/10/21 12/10/21 Rx [Duoneb 0.5 mg-3 mg/3 ml Soln] Ipratropium-Albuterol Nebulize 3 ml INHALATION RT-QID 30 Days 07/10/21 12/10/21 Rx [Duoneb 0.5 mg-3 mg/3 ml Soln] #120 each Albuterol Sulfate [Albuterol 2 puff INHALATION RT-Q6H PRN 08/08/21 12/10/21 History Sulfate Hfa] Acetaminophen Tab [Tylenol] 650 mg PO Q6HR PRN tab 08/09/21 12/10/21 Rx Apixaban [Eliquis] 5 mg PO BID 09/13/21 12/10/21 History Pantoprazole [Protonix] 40 mg PO AC-BRKFST 30 Days #30 tab 09/18/21 12/10/21 Rx Allergies Allergy/AdvReac Type Severity Reaction Status Date / Time sulfamethoxazole Allergy Unknown Verified 12/10/21 11:31 [From Bactrim] trimethoprim [From Bactrim] Allergy Unknown Verified 12/10/21 11:31 Physical Examination - Vital Signs Vital Signs: Vital Signs Temp Pulse Pulse Pulse Resp BP Pulse Ox 12/11/21 18:29 12/11/21 18:21 12/11/21 16:13 88 12/11/21 16:01 84 12/11/21 15:15 19 12/11/21 12:14 90 12/11/21 12:05 94 12/11/21 12:00 98 18 161/65 91 L 12/11/21 10:21 91 19 12/11/21 10:14 91 19 171/69 93 L 12/11/21 08:54 89 12/11/21 04:00 98.6 F 100 20 152/94 96 12/11/21 02:00 100 18 12/11/21 00:00 100 18 142/86 95 12/10/21 21:22 90 12/10/21 21:12 95 96 12/10/21 20:00 98.8 F 96 22 149/70 94 L FiO2 12/11/21 18:29 100 12/11/21 18:21 100 12/11/21 16:13 12/11/21 16:01 12/11/21 15:15 12/11/21 12:14 12/11/21 12:05 12/11/21 12:00 12/11/21 10:21 12/11/21 10:14 12/11/21 08:54 12/11/21 04:00 12/11/21 02:00 12/11/21 00:00 12/10/21 21:22 12/10/21 21:12 12/10/21 20:00 Intake and Output 12/11/21 12/11/21 12/11/21 06:59 14:59 22:59 Intake Total 240 Output Total 125 Balance 115 Intake: Oral 240 Output: Urine 125 Other: Voiding Method Indwelling Catheter Indwelling Catheter Indwelling Catheter # Voids 0 Weight 63.503 kg Patient is an elderly female, who is intubated, sedated with propofol 40 mcg/g/m. On cranial nerve examination, pupils are equal, round and reacting to light, oculocephalics are absent. Corneals present. Lower cranial nerves could not be tested due to mental status and intubation. On muscle strength testing, tone is equal bilaterally. Patient withdraws well to painful stimuli. Deep tendon reflexes are symmetric 2 at the knees, 2 ankles and plantars are downgoing and withdrawal bilaterally. Sensory to touch cannot be assessed, but with painful stimuli, patient withdraws well. Cerebellar functions cannot be tested. Tone and bulk of muscles normal. Gait cannot be tested. On general examination, there is no carotid bruit or murmur, S1-S2 audible. Chest is clear on consultation. Abdomen is soft nontender. No organomegaly, bowel sounds present. Peripheral pulses are present. No edema. Results - Laboratory Findings CBC and BMP: 12/12/21 03:31 12/12/21 03:31 Abnormal Lab Findings: Abnormal Labs 12/10/21 12/10/21 12/10/21 09:25 10:01 10:01 RBC 3.52 L Hgb MCV 100.6 H D Neutrophils # (Manual) Lymphocytes # (Manual) 0.68 L Metamyelocytes # (Man) ABG pH ABG pO2 ABG HCO3 Sodium 136 L Carbon Dioxide BUN 46 H Creatinine 3.86 H Glucose 158 H POC Glucose (mg/dL) 150 H Calcium AST 203 H ALT 83 H Troponin I Total Protein 6.2 L Albumin 3.1 L Procalcitonin 12/10/21 12/10/21 12/10/21 10:01 14:57 15:25 RBC Hgb MCV Neutrophils # (Manual) Lymphocytes # (Manual) Metamyelocytes # (Man) ABG pH ABG pO2 ABG HCO3 Sodium Carbon Dioxide BUN Creatinine Glucose POC Glucose (mg/dL) Calcium AST ALT Troponin I 0.080 H* 0.119 H* 0.117 H* Total Protein Albumin Procalcitonin 12/10/21 12/10/21 12/11/21 18:00 18:00 07:36 RBC 3.48 L Hgb 11.3 L MCV 102.0 H Neutrophils # (Manual) 8.00 H Lymphocytes # (Manual) Metamyelocytes # (Man) 0.10 H ABG pH ABG pO2 ABG HCO3 Sodium Carbon Dioxide BUN Creatinine Glucose POC Glucose (mg/dL) Calcium AST ALT Troponin I 0.125 H* Total Protein Albumin Procalcitonin 6.11 H 12/11/21 12/11/21 12/11/21 07:36 15:22 17:51 RBC Hgb MCV Neutrophils # (Manual) Lymphocytes # (Manual) Metamyelocytes # (Man) ABG pH 7.27 L ABG pO2 79 L ABG HCO3 18 L Sodium Carbon Dioxide 19 L BUN 65 H Creatinine 6.00 H Glucose POC Glucose (mg/dL) 111 H Calcium 8.3 L AST ALT Troponin I Total Protein Albumin Procalcitonin 12/11/21 18:27 RBC Hgb MCV Neutrophils # (Manual) Lymphocytes # (Manual) Metamyelocytes # (Man) ABG pH ABG pO2 ABG HCO3 Sodium Carbon Dioxide BUN Creatinine Glucose POC Glucose (mg/dL) 136 H Calcium AST ALT Troponin I Total Protein Albumin Procalcitonin Assessment and Plan Assessment: * Altered mental status, probably due to toxic metabolic encephalopathy. * Seizure-like activity, followed by inguinal breathing. Seizure possibly due to TME versus related to rapid osmotic shift from initiation of hemodialysis. * Acute kidney injury likely due to ATN. * Acute respiratory failure requiring intubation, on mechanical ventilation. * CHF exacerbation * COPD * UTI * Lactic acidosis * Metabolic acidosis * Tobacco use Plan: * Patient will undergo EEG in the morning. * Patient's examination shows no evidence of seizure activity. Exam is nonfocal. Hold off on antiepileptic medication at this time. * Medical management as per IM, critical care and other specialties. * Neurology will follow. Thank you for the consult.
[2021-12-12 12:00] LABS: Glucose,Whole Blood 165 mg/dL (70-110)
[2021-12-12] MEDS: INSULIN ASPART (NovoLOG) 100 UNIT/ML VIAL SQ SCH ×2 (12:02→17:15)
[2021-12-12 17:14] LABS: Glucose,Whole Blood 192 mg/dL (70-110)
--- NOTE | 2021-12-12 21:45 | OP ---
OPERATIVE REPORT PROCEDURE PERFORMED: Placement of a right radial arterial line. PREOPERATIVE DIAGNOSES: Acute respiratory failure, seizure disorder, and renal failure. POSTOPERATIVE DIAGNOSES: Acute respiratory failure, seizure disorder, and renal failure. ANESTHESIA USED: None deployed. DESCRIPTION OF PROCEDURE: The patient was placed in the supine position, the right wrist was prepared in a sterile fashion and drapes were applied. The right radial artery was palpated, cannulated easily. A guidewire was placed. Then, a Cook catheter was inserted over the guidewire, and the guidewire was removed. Good blood flow, good waveform noted, no complications. Line was secured using 3-0 silk sutures. MMODL / IJN: [id number] /
--- NOTE | 2021-12-12 23:03 | PN ---
PROGRESS NOTE SUBJECTIVE: Delmy is a 71-year-old lady who was admitted to hospital with acute renal failure and was on the floor. When we initiated dialysis, she developed seizure-like activity and had to be intubated and placed on vent. This morning, at the time of my evaluation, she is intubated and currently on a vent. OBJECTIVE: VITAL SIGNS: Heart rate is 84 beats per minute, blood pressure is 140/77, respiratory rate is 20, O2 saturation is 95%. NECK: There is no jugular venous distention. Carotid upstroke is diminished. CHEST: Reveals diminished air entry at the bases. HEART: Reveals first and second heart sounds. No gallop. EXTREMITIES: Examination of the extremities did not reveal any edema. Peripheral pulses are felt. LABORATORY DATA: Show hemoglobin of 10.3, platelet count is 224. Potassium is 4.9, BUN is 64, creatinine is 6.6. Tropes were elevated at 0.1 all through secondary to renal failure. The patient had an echocardiogram on this admission that revealed normal LV function with basal inferior wall hypokinesis. ASSESSMENT: 1. Acute renal failure. 2. Elevated troponin probably secondary to renal failure. 3. Abnormal 2D echo. PLAN: Continue the dialysis. Continue current supportive care. When the patient's clinical situation improves, she will need evaluation with a stress test as an outpatient given the wall motion abnormality noted on the echo. MMODL / IJN: [id number] /
[2021-12-12] MEDS: IPRATROPIUM-ALBUTEROL 3 ML NEB INHALATION PRN (23:57)
[2021-12-13 00:07] LABS: Glucose,Whole Blood 185 mg/dL (70-110)
[2021-12-13] MEDS: methylPREDNISolone SOD SUCCI 125 MG/2 ML VIAL IV SCH ×5 (00:13→23:46)
[2021-12-13] MEDS: INSULIN ASPART (NovoLOG) 100 UNIT/ML VIAL SQ SCH ×5 (00:14→23:46)
[2021-12-13] MEDS: ACETAMINOPHEN TAB 325 MG TAB PO PRN (00:14)
[2021-12-13] MEDS: IPRATROPIUM-ALBUTEROL 3 ML NEB INHALATION PRN ×2 (04:13→23:52)
[2021-12-13 04:16] LABS: HCT 25.1 % (34.0-46.0); Hypochromasia Slight; MCH 33.4 pg (25.0-35.0); MCHC 33.5 g/dL (31.0-37.0); MCV 99.8 fL (80.0-100.0); Mean Platelet Volume 8.3; Platelet Count 204 k/uL (150-450); RBC 2.51 m/uL (3.80-5.40); RDW 14.2 % (11.5-15.5); WBC 5.4 k/uL (3.8-10.6)
[2021-12-13 04:28] LABS: HGB 8.4 gm/dL (11.4-16.0)
--- NOTE | 2021-12-13 05:06 | EEG ---
ELECTROENCEPHALOGRAM REPORT PREAMBLE: This is a 71-year-old female, who came to the hospital for altered mental status. The patient while having dialysis for the first time, had a seizure like activity and became unresponsive. The patient intubated, currently on propofol 40 mcg/kg/minute. EEG FINDINGS: This is a 21-channel digital EEG recorded with video component, utilizing 10/20 international system with referential and bipolar montages. The patient apparently was asleep during the entire study because of being on propofol. The background consists of diffuse slowing of 4 hertz theta, with medium amplitude delta activity seen in bihemispheric region. Very frequent sleep spindles were seen. Periods of suppression lasting for 1-2 seconds were also seen, likely related to medication effect. No focal or generalized epileptiform activity was seen. Photic driving response was not seen. IMPRESSION: This is an abnormal sleep EEG. The diffuse slowing and periods of suppression suggests generalized cerebral dysfunction as can be seen with encephalopathy or medication effect. Clinical correlation recommended. No epileptiform activity was seen. MMODL / IJN: [id number] /
[2021-12-13 05:36] LABS: Calcium 6.8 mg/dL (8.4-10.2); Potassium 3.9 mmol/L (3.5-5.1)
[2021-12-13 05:42] LABS: Glucose,Whole Blood 219 mg/dL (70-110)
--- NOTE | 2021-12-13 05:45 | P.PN ---
Subjective Progress Note Date: 12/12/21 This is a 71-year-old female who was recently admitted with change in mental status and increased hypoxia and shortness of breath and being closely monitored. Multiple medical consultations following and patient had worsening hypoxia and abnormal ABG and brought to the ICU and patient was ultimately pl aced on mechanical vent. Patient is maintained on IV Zosyn and also emergently received a temporary dialysis catheter and is undergoing hemodialysis with nephrology following closely. Patient's kidney functions worsened and emergently started on dialysis. Patient is on mechanical vent with FiO2 of 35% with PEEP of 5. Patient was initiated on emergent dialysis last night and receiving again today. Review of systems: Unable to obtain as patient is on vent and sedated All medications have been reviewed Active Medications Acetaminophen (Acetaminophen Tab 325 Mg Tab) 650 mg PO Q6HR PRN PRN Reason: Mild Pain or Fever > 100.5 Last Admin: 12/13/21 00:14 Dose: 650 mg Albuterol/Ipratropium (Ipratropium-Albuterol 3 Ml Neb) 3 ml INHALATION RT-QID [facility] Last Admin: 12/12/21 20:53 Dose: 3 ml Albuterol/Ipratropium (Ipratropium-Albuterol 3 Ml Neb) 3 ml INHALATION RT-Q4H PRN PRN Reason: Shortness Of Breath Or Wheezing Last Admin: 12/13/21 04:13 Dose: 3 ml Apixaban (Apixaban 5 Mg Tab) 5 mg PO BID VIDA; Protocol Last Admin: 12/12/21 20:06 Dose: 5 mg Budesonide (Budesonide 1 Mg/2 Ml Nebu) 1 mg INHALATION RT-BID [facility] Last Admin: 12/12/21 20:53 Dose: 1 mg Chlorhexidine Gluconate (Chlorhexidine Gluconate 15 Ml Cup) 15 ml MUCOUS MEM BID IVDA Last Admin: 12/12/21 20:06 Dose: 15 ml Dextrose/Water (Dextrose 50% Syringe 50 Ml) 25 ml IVP PER PROTOCOL PRN; Protocol PRN Reason: Hypoglycemia Dextrose/Water (Dextrose 50% Syringe 50 Ml) 50 ml IVP PER PROTOCOL PRN; Protocol PRN Reason: Hypoglycemia Formoterol Fumarate (Formoterol Fumarate 20 Mcg/2 Ml Nebu) 20 mcg INHALATION RT-BID VIDA Last Admin: 12/12/21 20:53 Dose: 20 mcg Piperacillin Sod/Tazobactam (Sod 3.375 gm/ Sodium Chloride) 100 mls @ 25 mls/hr IVPB Q12HR VIDA; Protocol Last Admin: 12/12/21 20:05 Dose: 25 mls/hr Sodium Chloride (Saline 0.9%) 1,000 mls @ 50 mls/hr IV .Q20H VIDA Last Admin: 12/12/21 20:05 Dose: 50 mls/hr Propofol 1,000 mg/ IV Solution 100 mls @ 5.715 mls/hr IV .[id number] VIDA; Protocol Last Admin: 12/13/21 01:25 Dose: 50 mcg/kg/min, 19.051 mls/hr Sodium Bicarbonate 150 ml/ (Dextrose/Water) 1,150 mls @ 50 mls/hr IV .Q23H VIDA Last Admin: 12/12/21 10:16 Dose: 50 mls/hr Insulin Aspart (Insulin Aspart (Novolog) 100 Unit/Ml Vial) 0 unit SQ Q6H VIDA; Protocol Last Admin: 12/13/21 00:14 Dose: 1 unit Methylprednisolone Sodium Succinate (Methylprednisolone Sod Succi 125 Mg/2 Ml Vial) 60 mg IV Q6HR [facility] Last Admin: 12/13/21 00:13 Dose: 60 mg Naloxone HCl (Naloxone 0.4 Mg/Ml 1 Ml Vial) 0.2 mg IV Q2M PRN PRN Reason: Opioid Reversal Pantoprazole Sodium (Pantoprazole 40 Mg/10 Ml Vial) 40 mg IV DAILY [facility] Last Admin: 12/12/21 08:04 Dose: 40 mg PHYSICAL EXAMINATION: GENERAL: The patient is currently on mechanical ventilation and sedated. Ill appearing, elderly female HEENT: Pupils are round and equally reacting to light. EOMI. no scleral icterus. No conjunctival pallor. Normocephalic, atraumatic. No pharyngeal erythema. No thyromegaly. CARDIOVASCULAR: S1 and S2 muffled PULMONARY: diminished breath sounds bilaterally with scattered rhonchi and crackles noted. ABDOMEN: soft. Nontender on exam. non-distended, normoactive bowel sounds. No palpable organomegaly. MUSCULOSKELETAL: No joint swelling or deformity. EXTREMITIES: No cyanosis, clubbing, or pedal edema. NEUROLOGICAL: Gross neurological examination did not reveal any focal deficits. Unable to completely assess as patient is sedated on mechanical vent. Diffuse weakness SKIN: No rashes. Assessment: Change in mental status, acute metabolic encephalopathy Acute on chronic hypoxic respiratory failure requiring mechanical ventilation on 12/11/2021 Congestive heart failure and chronic obstructive pulmonary disease, acute exacerbation Acute renal failure requiring emergent dialysis catheter placement and hemodialysis started last night Troponin indeterminate at 0.119 Degenerative joint disease History of DVT Gastroesophageal reflux disease Osteoarthritis Chronic bullous emphysema history Former smoker of 40+ years GI prophylaxis DVT prophylaxis Full code Plan: Recommend to continue with current medications and management and is now in the ICU on mechanical ventilation with an FI02 of 35% and peep of 5. Multiple medical consultations following and patient was also started on emergent dialysis with nephrology following. Prognosis is extremely guarded. Patient continued on sedation and not requiring pressor support at this time. FAmily members at the bedside with questions and concerns that were answered. Recommend repeat chest xray and labs in the am. Due to multiple complex medical issues, prognosis is guarded. The impression and plan of care has been dictated by Carmen Yeboah, nurse practitioner as directed. Dr. Get MD I have performed a history and examination and MDM of this patient, discussed the same with the dictator, and agree with the dictator's assessment and plan as written ,documented as a scribe. Based on total visit time, I have performed more than 50% of the visit. Any additional findings or plans will be noted. Objective - Vital Signs Vital signs: Vital Signs Temp 98.7 F 12/12/21 12:00 Pulse 92 12/12/21 14:00 Resp 25 H 12/12/21 14:00 BP 120/70 12/12/21 14:00 Pulse Ox 95 12/12/21 14:00 FiO2 35 12/12/21 12:00 Intake & Output 12/11/21 12/12/21 12/12/21 18:59 06:59 18:59 Intake Total 1115.712 754.715 Output Total 305 0 Balance 810.712 754.715 Weight 63.503 kg 63.5 kg 63.5 kg Intake: IV 460 660 Dextrose 5% in Water 1, 200 000 ml @ 50 mls/hr IV . Q23H [facility]IDA with Sodium Bicarb (1 Meq/ml) 150 ml Rx#:[id number] Piperacillin-Tazobactam 3 100 100 .375 gm In Sodium Chloride 0.9% 100 ml @ 25 mls/hr IVPB Q12HR [facility] Rx #:[id number] Sodium Chloride 0.9% 1, 360 360 000 ml @ 50 mls/hr IV . Q20H [facility] Rx#:[id number] Intake, IV Titration 155.712 94.715 Amount propofoL 1,000 mg In 155.712 94.715 Empty Bag 1 bag @ 15 MCG/ KG/MIN 5.715 mls/hr IV . [id number] [facility]IDA Rx#:[id number] Hemodialysis 500 Output: Urine 5 0 Hemodialysis 300 Other: Voiding Method Indwelling Catheter Indwelling Catheter Indwelling Catheter # Voids 0 ABP, PAP, CO, CI - Last Documented Arterial Blood Pressure 117/54 - Labs CBC & Chem 7: 12/13/21 03:27 12/13/21 03:27 Labs: Abnormal Lab Results - Last 24 Hours (Table) 12/11/21 12/11/21 12/11/21 Range/Units 15:22 17:51 18:27 RBC (3.80-5.40) m/uL Hgb (11.4-16.0) gm/dL Hct (34.0-46.0) % MCV (80.0-100.0) fL Lymphocytes # (1.0-4.8) k/uL ABG pH 7.27 L (7.35-7.45) ABG pO2 79 L (83-108) mmHg ABG HCO3 18 L (21-25) mmol/L ABG Total CO2 (19-24) mmol/L ABG O2 Saturation (94-97) % Carbon Dioxide (22-30) mmol/L BUN (7-17) mg/dL Creatinine (0.52-1.04) mg/dL Glucose (74-99) mg/dL POC Glucose (mg/dL) 111 H 136 H (70-110) mg/dL Plasma Lactic Acid Javier (0.7-2.0) mmol/L Calcium (8.4-10.2) mg/dL Troponin I (0.000-0.034) ng/mL 12/11/21 12/11/21 12/11/21 Range/Units 18:41 18:41 18:41 RBC 3.42 L (3.80-5.40) m/uL Hgb 11.2 L (11.4-16.0) gm/dL Hct (34.0-46.0) % MCV 104.2 H (80.0-100.0) fL Lymphocytes # (1.0-4.8) k/uL ABG pH (7.35-7.45) ABG pO2 (83-108) mmHg ABG HCO3 (21-25) mmol/L ABG Total CO2 (19-24) mmol/L ABG O2 Saturation (94-97) % Carbon Dioxide (22-30) mmol/L BUN (7-17) mg/dL Creatinine (0.52-1.04) mg/dL Glucose (74-99) mg/dL POC Glucose (mg/dL) (70-110) mg/dL Plasma Lactic Acid Javier 2.9 H* (0.7-2.0) mmol/L Calcium (8.4-10.2) mg/dL Troponin I 0.168 H* (0.000-0.034) ng/mL 12/11/21 12/11/21 12/12/21 Range/Units 18:41 19:29 03:31 RBC 3.12 L (3.80-5.40) m/uL Hgb 10.3 L (11.4-16.0) gm/dL Hct 32.2 L (34.0-46.0) % MCV 103.3 H (80.0-100.0) fL Lymphocytes # 0.6 L (1.0-4.8) k/uL ABG pH 7.27 L (7.35-7.45) ABG pO2 >400 H (83-108) mmHg ABG HCO3 19 L (21-25) mmol/L ABG Total CO2 (19-24) mmol/L ABG O2 Saturation 100.0 H (94-97) % Carbon Dioxide 15 L (22-30) mmol/L BUN 54 H (7-17) mg/dL Creatinine 5.61 H (0.52-1.04) mg/dL Glucose 126 H (74-99) mg/dL POC Glucose (mg/dL) (70-110) mg/dL Plasma Lactic Acid Javier (0.7-2.0) mmol/L Calcium 8.1 L (8.4-10.2) mg/dL Troponin I (0.000-0.034) ng/mL 12/12/21 12/12/21 12/12/21 Range/Units 03:31 05:35 11:59 RBC (3.80-5.40) m/uL Hgb (11.4-16.0) gm/dL Hct (34.0-46.0) % MCV (80.0-100.0) fL Lymphocytes # (1.0-4.8) k/uL ABG pH 7.28 L (7.35-7.45) ABG pO2 135 H (83-108) mmHg ABG HCO3 17 L (21-25) mmol/L ABG Total CO2 18 L (19-24) mmol/L ABG O2 Saturation 98.9 H (94-97) % Carbon Dioxide 15 L (22-30) mmol/L BUN 64 H (7-17) mg/dL Creatinine 6.63 H (0.52-1.04) mg/dL Glucose 165 H (74-99) mg/dL POC Glucose (mg/dL) 165 H (70-110) mg/dL Plasma Lactic Acid Javier (0.7-2.0) mmol/L Calcium 7.7 L (8.4-10.2) mg/dL Troponin I (0.000-0.034) ng/mL Microbiology - Last 24 Hours (Table) 12/11/21 23:50 Gram Stain - Preliminary Sputum Sputum Culture - Preliminary 12/10/21 10:35 Blood Culture - Preliminary Blood No Growth after 48 hours 12/10/21 10:59 Blood Culture - Preliminary Blood No Growth after 48 hours 12/10/21 10:01 Urine Culture - Final Urine,Voided Escherichia coli
[2021-12-13] MEDS: DEXTROSE 5% IN WATER 1,000 ML with SODIUM BICARB (1 MEQ/ML) 150 ML IV SCH (06:00)
--- NOTE | 2021-12-13 06:09 | XR ---
EXAMINATION TYPE: XR chest 1V portable DATE OF EXAM: 12/13/2021 CLINICAL HISTORY: Difficulty breathing progress study. TECHNIQUE: Single AP portable upright view of the chest is obtained. COMPARISON: Chest x-ray from one day earlier and older studies. FINDINGS: Stable endotracheal and orogastric tubes. Background chronic emphysematous change with persistent elevated left hemidiaphragm and left basilar opacity along with small to tiny bilateral pleural effusions. Cardiac silhouette size stable within n ormal limits. Osseous structures are intact. IMPRESSION: Chronic emphysematous change with Small to tiny bilateral pleural effusions and left basi lar acute infiltrate and/or atelectasis are seen.
[2021-12-13 06:15] LABS: ABG Base Excess 8.3 mmol/L; ABG HCO3 32 mmol/L (21-25); ABG Oxygen Saturation 96.5 % (94-97); ABG PCO2 44 mmHg (35-45); ABG PH 7.47 (7.35-7.45); ABG PO2 82 mmHg (83-108); ABG TCO2 33 mmol/L (19-24); Allen Test Performed? Yes
[2021-12-13] MEDS: IPRATROPIUM-ALBUTEROL 3 ML NEB INHALATION SCH ×4 (07:27→20:23)
[2021-12-13] MEDS: BUDESONIDE 1 MG/2 ML NEBU INHALATION SCH ×2 (07:27→20:23)
[2021-12-13] MEDS: FORMOTEROL FUMARATE 20 MCG/2 ML NEBU INHALATION SCH ×2 (07:40→20:23)
[2021-12-13] MEDS: PIPERACILLIN-TAZOBACTAM 3.375 GM in SODIUM CHLORIDE 0.9% 100 ML IVPB SCH ×2 (07:58→19:57)
[2021-12-13] MEDS: PANTOPRAZOLE 40 MG/10 ML VIAL IV SCH (07:58)
[2021-12-13] MEDS: CHLORHEXIDINE GLUCONATE 15 ML CUP MUCOUS MEM SCH ×2 (07:59→19:57)
[2021-12-13] MEDS: APIXABAN 5 MG TAB PO SCH ×2 (07:59→08:32)
[2021-12-13] MEDS: DEXMEDETOMIDINE/0.9% NACL(PMX) 400 MCG in EMPTY BAG 1 BAG IV SCH ×2 (09:27→22:16)
--- NOTE | 2021-12-13 09:35 | US ---
EXAMINATION TYPE: US venous doppler duplex LE DATE OF EXAM: 12/13/2021 9:14 AM COMPARISON: Bilateral lower extremity venous ultrasound August 08, 2021 CLINICAL HISTORY: h/o dvt. ICU patient. History of DVT left leg. Dialysis right groin SIDE PERFORMED: Bilateral TECHNIQUE: The lower extremity deep venous system is examined utilizing real time linear array sonog tonya with graded compression, doppler sonography and color-flow sonography. VESSELS IMAGED: Common Femoral Vein Deep Femoral Vein Greater Saphenous Vein * Femoral Vein Popliteal Vein Small Saphenous Vein * Proximal Calf Veins (* superficial vessels) Right Leg: No evidence of DVT as visualized. Unable to visualize vessels within right groin due to d ialysis graft tubing and bandages Left Leg: Positive for DVT. thready flow with partial compression left femoral vein extending into p opliteal vein Grayscale, color doppler, spectral doppler imaging performed of the deep veins of the bilateral lower extremities. IMPRESSION: Some improvement from prior study. Partially occlusive thrombus in the left lower extrem ity remains present
--- NOTE | 2021-12-13 10:58 | P.PN ---
Subjective Progress Note Date: 12/13/21 Principal diagnosis: Altered mental status, suspected new onset seizures This 71-year-old female patient who presented to the emergency room yesterday via EMS as her family had noted a 4 day history of generalized weakness and confusion. She has a known history of advanced chronic obstructive pulmonary disease with previous history of heavy tobacco dependence. Her FEV1 ranges between 30 and 35% of predicted. She is maintained on Dulera, Spiriva and albuterol in the outpatient setting. She has a nebulizer for treatments as well. She is also oxygen dependent on 2 L at home. She was discharged One month ago for an acute on chronic hypoxic respiratory failure secondary to COPD exacerbation without clear evidence of pneumonia. Chest x-ray showing bilateral interstitial edema on background bilateral chronic parenchymal changes. Most likely fluid overload state. Echocardiogram reveals preserved left ventricular systolic ejection fraction of 50-55%. Basilar inferior hypokinesis. No pericardial effusion. Computed tomography scan of the brain revealed no acute intracranial hemorrhage or midline shift. There is [id number] diffuse age-related cerebral atrophy and mild chronic small vessel ischemic changes noted. Follow-up chest x-ray continues show some interstitial changes. Evidence of emphysema. Urine culture is positive for gram-negative bacilli. Blood cultures are pending. White count 10.1. Hemoglobin 11.3. Sodium 139. Potassium 4.3. Bicarb 19. BUN 65. Creatinine 6.00. Pro calcitonin 6.11. Troponin leak at 0.11, 0.11, 0.12. ProBNP 15,600. Ocampo virus not detected. Influenza screen negative. She's been initiated on DuoNeb inhalations, Pulmicort inhalations. Anticoagulated with Eliquis. She is seen today in consultation on the selective care unit. She is currently resting in bed. Awake. Confused to time and place. Maintaining O2 saturation in the low 90s on 3 L/m per nasal cannula. Afebrile. Arterial blood gases on 28% FiO2 revealed a pO2 of 79, pCO2 38, pH 7.27. Nephrology is on regarding acute renal failure with a GFR of 7. Reevaluated today on 12/12/21, patient developed a sudden onset seizure yesterda y and this was witnessed, this was noted shortly after dialysis was started. Patient never lost her pulse, however she was post ictal after the seizure, and her breathing was noted to be agonal. Hence the patient was intubated by DIABETES PHYSICIAN, sent down for a CT of the head which was normal, transferred to ICU on mechanical ventilation. Patient is yet to be seen by neurology on consultation, she had EEG and CT of the head yesterday. Today she is on mechanical ventilation, assist control rate of 20, volume of 500 FiO2 30% and PEEP of 5. ABG showed a pO2 of 135 pCO2 36 pH of 7.28, hence the changes made included increase FiO2 up to 35% increase tidal volume down to 450 increase respiratory rate to 22 started patient on a bicarb drip at 50 mL per hour and cut down her IV fluid to 50 mL per hour. Considering her hemodynamic status, and considering the patient isn't requiring dialysis, a right radial arterial line was placed on emergent basis. Patient had no urine output yesterday, she is scheduled to undergo dialysis again today. CT of the brain was negative. Ultrasound of the kidneys showed left sided hydronephrosis. Right kidney seems to be intact. Patient is on propofol at 50 mcg/kg/m, she is not requiring any pressors. She is fully sedated, however I plan to cut down on the propofol, and hopefully assess mental status off propofol. This will be done later today after the p atient is dialyzed, and after seen by neurology consider starting the patient on seizure medications, likely Keppra. EEG is yet to be evaluated by neurology. WBC count today is 7.5 hemoglobin is 10.3. Basic metabolic profile is normal renal profile showed a BUN of 64 creatinine 6.63. Patient is now on eliquis 5 mg by mouth twice a day Pulmicort [facility], Perforomist [facility], she is also on a bicarb drip at 50 mL per hour, insulin as per protocol, DuoNeb, Solu-Medrol 60 mg IV push every 6 hours, Protonix 40 mg IV push daily, Zosyn empirically, since her chest x-rays showing possible left lo wer lobe new infiltrate. Patient was noted to have evidence of possible UTI, and she also had elevated pro calcitonin level on admission. Reevaluated today on 12/13/21, patient remains in the ICU, intubated and mechanically ventilated. She is on assist control rate of 22, volume 450 FiO2 35% PEEP of 5. ABG showed a pO2 of 82 pCO2 44 pH of 7.47 hence no changes were made in her ventilator settings. Patient dropped her hemoglobin from 10.3-8.4, she has some minimal oozing around the dialysis catheter, and yesterday she was oozing around the arterial line which we have discontinued. Today I look back and found that the patient has been on eliquis for DVT from over 4 months ago. Hence I recommended stopping eliquis and we will check a venous Doppler make sure there is no active DVT in lower extremities. Patient will have hemodialysis again today. She is on propofol at 20 mcg/kg/m she is also on a bicarb drip at 50 mL/h, she is also receiving vital HP at 2 5 mL an hour chest x-ray is showing bibasilar airspace disease, possibility of aspiration pneumonia is very likely patient remains on Zosyn. EEG done yesterday showed no evidence of seizure focus, hence the patient was not placed on any antiseizure medication as recommended by neurology. WBC count today is 5.4 hemoglobin is 8.4, electrolytes are normal bicarb is 28 hence I will discontinue her bicarb. Her BUN is 54 creatinine 4.51. Urine culture on this admission showed E. coli, sensitive to Zosyn, patient remains on Zosyn. Blood cultures have been negative along, sputum cultures are nondiagnostic. Objective - Vital Signs Vital signs: Vital Signs Temp 99.0 F 12/13/21 09:01 Pulse 82 12/13/21 10:00 Resp 28 H 12/13/21 10:00 BP 104/61 12/13/21 10:00 Pulse Ox 96 12/13/21 10:00 FiO2 35 12/13/21 08:00 Intake & Output 12/12/21 12/13/21 12/13/21 18:59 06:59 18:59 Intake Total 7366.225 4705.270 1046.645 Output Total 0 0 1510 Balance 5570.428 7144.270 -463.355 Weight 63.5 kg 62.9 kg Intake: IV 1160 1000 500 Dextrose 5% in Water 1, 450 550 200 000 ml @ 50 mls/hr IV . Q23H VIDA with Sodium Bicarb (1 Meq/ml) 150 ml Rx#:[id number] Piperacillin-Tazobactam 3 100 100 100 .375 gm In Sodium Chloride 0.9% 100 ml @ 25 mls/hr IVPB Q12HR VIDA Rx #:[id number] Sodium Chloride 0.9% 1, 610 350 200 000 ml @ 50 mls/hr IV . Q20H VIDA Rx#:[id number] Intake, IV Titration 94.715 188.270 56.645 Amount propofoL 1,000 mg In 94.715 188.270 56.645 Empty Bag 1 bag @ 15 MCG/ KG/MIN 5.715 mls/hr IV . [id number] VIDA Rx#:[id number] Tube Feeding 90 Hemodialysis 400 Output: Urine 0 0 10 Hemodialysis 1500 Other: Voiding Method Indwelling Catheter Indwelling Catheter Indwelling Catheter ABP, PAP, CO, CI - Last Documented Arterial Blood Pressure 117/54 - Exam Physical Exam: Revealed 71-year-old female, intubated, mechanically ventilated, sedated, on propofol. Head: Atraumatic, normocephalic. HEENT:[Neck is supple.] [No neck masses.] [No thyromegaly.] [No JVD.] Endotracheal tube and orogastric tube are intact. Chest: [Symmetrical chest expansion, scattered rhonchi and crackles at the bases bilaterally. Cardiac Exam: [Normal S1 and S2, no S3 gallop, no murmur.] Abdomen: [Soft, nontender, no megaly, no rebound, no guarding, normal bowel sounds.] Extremities: [No clubbing, no edema, no cyanosis.] Good pulses bilaterally. Musculoskeletal: No deformities. Neurological Exam: Cannot assess, patient is sedated on propofol, Psychiatric: Could not assess. - Labs CBC & Chem 7: 12/13/21 03:27 12/13/21 03:27 Labs: Abnormal Lab Results - Last 24 Hours (Table) 12/12/21 12/12/21 12/13/21 Range/Units 11:59 17:12 00:06 RBC (3.80-5.40) m/uL Hgb (11.4-16.0) gm/dL Hct (34.0-46.0) % ABG pH (7.35-7.45) ABG pO2 (83-108) mmHg ABG HCO3 (21-25) mmol/L ABG Total CO2 (19-24) mmol/L Sodium (137-145) mmol/L Chloride (98-107) mmol/L BUN (7-17) mg/dL Creatinine (0.52-1.04) mg/dL Glucose (74-99) mg/dL POC Glucose (mg/dL) 165 H 192 H 185 H (70-110) mg/dL Calcium (8.4-10.2) mg/dL 12/13/21 12/13/21 12/13/21 Range/Units 03:27 03:27 05:40 RBC 2.51 L (3.80-5.40) m/uL Hgb 8.4 L D (11.4-16.0) gm/dL Hct 25.1 L (34.0-46.0) % ABG pH (7.35-7.45) ABG pO2 (83-108) mmHg ABG HCO3 (21-25) mmol/L ABG Total CO2 (19-24) mmol/L Sodium 136 L (137-145) mmol/L Chloride 96 L (98-107) mmol/L BUN 54 H (7-17) mg/dL Creatinine 4.51 H (0.52-1.04) mg/dL Glucose 202 H (74-99) mg/dL POC Glucose (mg/dL) 219 H (70-110) mg/dL Calcium 6.8 L (8.4-10.2) mg/dL 12/13/21 Range/Units 06:14 RBC (3.80-5.40) m/uL Hgb (11.4-16.0) gm/dL Hct (34.0-46.0) % ABG pH 7.47 H (7.35-7.45) ABG pO2 82 L (83-108) mmHg ABG HCO3 32 H (21-25) mmol/L ABG Total CO2 33 H (19-24) mmol/L Sodium (137-145) mmol/L Chloride (98-107) mmol/L BUN (7-17) mg/dL Creatinine (0.52-1.04) mg/dL Glucose (74-99) mg/dL POC Glucose (mg/dL) (70-110) mg/dL Calcium (8.4-10.2) mg/dL Microbiology - Last 24 Hours (Table) 12/11/21 23:50 Gram Stain - Preliminary Sputum Sputum Culture - Preliminary 12/10/21 10:35 Blood Culture - Preliminary Blood No Growth after 48 hours 12/10/21 10:59 Blood Culture - Preliminary Blood No Growth after 48 hours 12/10/21 10:01 Urine Culture - Final Urine,Voided Escherichia coli Assessment and Plan Assessment: Impression: Acute respiratory failure secondary to new seizure-like activity with agonal breathing both seizure-like activity requiring intubation and mechanical ventilation. EEG showed no evidence of seizure focus. It did show evidence of metabolic encephalopathy. Acute on chronic hypoxic respiratory failure secondary to underlying COPD and possibly acute diastolic congestive heart failure. Patient has severe COPD, she is on home O2, FEV1 is 30%. Possible aspiration pneumonia is being considered, hence we'll continue Zosyn Acute E. coli urinary tract infection, on Zosyn. New-onset seizures Chronic smoking History of left lower extremity DVT, maintained on eliquis, however considering the patient drop in the hemoglobin, and considering the oozing around the dialysis catheter, I'm recommending would hold eliquis, and check venous Doppler on this patient Chronic back pain History of GERD Acute kidney injury, patient is requiring hemodialysis her baseline creatinine back in October was 1.34. GFR was 41 the patient developed acute on chronic kidney injury. Recommendation: Continue ventilatory support however the patient will be given a trial of weaning today possibly if we could convert propofol to Precedex, yesterday off propofol patient was extremely agitated and restless. Hence we'll try today waking up the patient on Precedex and not on propofol Continue enteral feeding Continue GI and DVT prophylaxis Continue antibiotics/Zosyn Continue bronchodilators. Continue hemodialysis. Continue to monitor closely electrolytes and renal functioning Discontinue bicarb drip Prognosis is guarded. Critical care time is over 30 minutes Time with Patient: Greater than 30
[2021-12-13 11:54] LABS: Glucose,Whole Blood 173 mg/dL (70-110)
--- NOTE | 2021-12-13 12:19 | P.GSCN ---
History of Present Illness Consult date: 12/13/21 Reason for Consult: Hydronephrosis of left kidney Requesting physician: Charity Goode History of present illness: This 71-year-old female patient who presented to the emergency room on 12/10/21 via EMS. Her family had noted a 4 day history of generalized weakness and confusion. Computed tomography scan of the brain revealed no acute intracranial hemorrhage or midline shift. Follow-up CXR continues show some interstitial changes and evidence of emphysema. Urine culture is positive for E. coli and she has been placed on Zosyn. Blood cultures are negative. Serum creatinine 3.86 upon admission. Nephrology following who states her acute kidney injury is most likely ATN. She is currently oliguric. Serum creatinine has increased significantly since admission. She is not on any nephrotoxic agents. She was diuresed and placed on hemodialysis for wosening mental status and volume overload. During dialysis she was noted to have seizure activity. Treatment was stopped, she was transferred to the ICU and was intubated. Urology is consulted for left sided hydronephrosis seen on ultrasound. of note ultrasound from 2019 showed evidence of atrophic left kidney. No evidence of gross hematuria Patient is currently intubated and sedated thus complete hx could not be obtained Review of Systems ROS unobtainable: due to endotracheal tube, due to mental status Past Medical History Past Medical History: COPD, GERD/Reflux, Hearing Disorder / Deafness, Osteoarthritis (OA), Renal Disease Additional Past Medical History / Comment(s): Pt recently admitted to [facility] on 08/08/21 with left lower extremity DVT. 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 History of Any Multi-Drug Resistant Organisms: None Reported Past Surgical History: Hernia Repair, Hysterectomy, Tonsillectomy, Tubal Ligation Additional Past Surgical History / Comment(s): R inguinal hernia repair, colonoscopies Past Anesthesia/Blood Transfusion Reactions: No Reported Reaction, Postoperative Nausea & Vomiting (PONV) Past Psychological History: No Psychological Hx Reported Additional Psychological History / Comment(s): Pt resides with her spouse. She has home oxygen, nebulizer, cane and walker. Pt does not drive, her man takes her to appointments and lives nearby. Smoking Status: Former smoker Past Alcohol Use History: None Reported Additional Past Alcohol Use History / Comment(s): Pt started smoking approximately 1971 and quit approximately 2014. Past Drug Use History: None Reported - Past Family History Father Family Medical History: Cancer Additional Family Medical History / Comment(s): Lung cancer. Medications and Allergies Home Medications Medication Instructions Recorded Confirmed Type Mometasone/Formoterol [Dulera 200 2 puff INHALATION RT-BID 05/13/14 12/10/21 History Mcg-5 Mcg Inhaler] Denosumab [Prolia] 60 mg SQ Q180D 04/10/20 12/10/21 History Tiotropium 18 Mcg/Puff [Spiriva] 1 cap INHALATION RT-DAILY 04/10/20 12/10/21 History Ipratropium-Albuterol Nebulize 3 ml INHALATION RT-Q4H PRN ml 07/10/21 12/10/21 Rx [Duoneb 0.5 mg-3 mg/3 ml Soln] Ipratropium-Albuterol Nebulize 3 ml INHALATION RT-QID 30 Days 07/10/21 12/10/21 Rx [Duoneb 0.5 mg-3 mg/3 ml Soln] #120 each Albuterol Sulfate [Albuterol 2 puff INHALATION RT-Q6H PRN 08/08/21 12/10/21 History Sulfate Hfa] Acetaminophen Tab [Tylenol] 650 mg PO Q6HR PRN tab 08/09/21 12/10/21 Rx Apixaban [Eliquis] 5 mg PO BID 09/13/21 12/10/21 History Pantoprazole [Protonix] 40 mg PO AC-BRKFST 30 Days #30 tab 09/18/21 12/10/21 Rx Allergies Allergy/AdvReac Type Severity Reaction Status Date / Time sulfamethoxazole Allergy Unknown Verified 12/10/21 11:31 [From Bactrim] trimethoprim [From Bactrim] Allergy Unknown Verified 12/10/21 11:31 Surgical - Exam Vital Signs Temp Pulse Resp BP Pulse Ox 99.6 F 112 H 20 181/92 98 12/10/21 09:30 12/10/21 09:30 12/10/21 09:30 12/10/21 09:30 12/10/21 09:30 General: Well developed, well nourished. Chronically ill appearing HEENT: Head is atraumatic, normocephalic. Lungs: Mechanically ventilated Abdomen/GI: Soft. : Pérez catheter present with tea colored urine Neurologic: Sedated. Results - Labs 12/13/21 03:27 12/13/21 03:27 Abnormal Lab Results - Last 24 Hours (Table) 12/12/21 12/12/21 12/13/21 Range/Units 11:59 17:12 00:06 RBC (3.80-5.40) m/uL Hgb (11.4-16.0) gm/dL Hct (34.0-46.0) % ABG pH (7.35-7.45) ABG pO2 (83-108) mmHg ABG HCO3 (21-25) mmol/L ABG Total CO2 (19-24) mmol/L Sodium (137-145) mmol/L Chloride (98-107) mmol/L BUN (7-17) mg/dL Creatinine (0.52-1.04) mg/dL Glucose (74-99) mg/dL POC Glucose (mg/dL) 165 H 192 H 185 H (70-110) mg/dL Calcium (8.4-10.2) mg/dL 12/13/21 12/13/21 12/13/21 Range/Units 03:27 03:27 05:40 RBC 2.51 L (3.80-5.40) m/uL Hgb 8.4 L D (11.4-16.0) gm/dL Hct 25.1 L (34.0-46.0) % ABG pH (7.35-7.45) ABG pO2 (83-108) mmHg ABG HCO3 (21-25) mmol/L ABG Total CO2 (19-24) mmol/L Sodium 136 L (137-145) mmol/L Chloride 96 L (98-107) mmol/L BUN 54 H (7-17) mg/dL Creatinine 4.51 H (0.52-1.04) mg/dL Glucose 202 H (74-99) mg/dL POC Glucose (mg/dL) 219 H (70-110) mg/dL Calcium 6.8 L (8.4-10.2) mg/dL 12/13/21 Range/Units 06:14 RBC (3.80-5.40) m/uL Hgb (11.4-16.0) gm/dL Hct (34.0-46.0) % ABG pH 7.47 H (7.35-7.45) ABG pO2 82 L (83-108) mmHg ABG HCO3 32 H (21-25) mmol/L ABG Total CO2 33 H (19-24) mmol/L Sodium (137-145) mmol/L Chloride (98-107) mmol/L BUN (7-17) mg/dL Creatinine (0.52-1.04) mg/dL Glucose (74-99) mg/dL POC Glucose (mg/dL) (70-110) mg/dL Calcium (8.4-10.2) mg/dL Microbiology - Last 24 Hours (Table) 12/11/21 23:50 Gram Stain - Preliminary Sputum Sputum Culture - Preliminary 12/10/21 10:35 Blood Culture - Preliminary Blood No Growth after 48 hours 12/10/21 10:59 Blood Culture - Preliminary Blood No Growth after 48 hours 12/10/21 10:01 Urine Culture - Final Urine,Voided Escherichia coli Diabetes panel 12/13/21 Range/Units 03:27 Sodium 136 L (137-145) mmol/L Potassium 3.9 (3.5-5.1) mmol/L Chloride 96 L (98-107) mmol/L Carbon Dioxide 28 (22-30) mmol/L BUN 54 H (7-17) mg/dL Creatinine 4.51 H (0.52-1.04) mg/dL Glucose 202 H (74-99) mg/dL Calcium 6.8 L (8.4-10.2) mg/dL Calcium panel 12/13/21 Range/Units 03:27 Calcium 6.8 L (8.4-10.2) mg/dL Pituitary panel 12/13/21 Range/Units 03:27 Sodium 136 L (137-145) mmol/L Potassium 3.9 (3.5-5.1) mmol/L Chloride 96 L (98-107) mmol/L Carbon Dioxide 28 (22-30) mmol/L BUN 54 H (7-17) mg/dL Creatinine 4.51 H (0.52-1.04) mg/dL Glucose 202 H (74-99) mg/dL Calcium 6.8 L (8.4-10.2) mg/dL Adrenal panel 12/13/21 Range/Units 03:27 Sodium 136 L (137-145) mmol/L Potassium 3.9 (3.5-5.1) mmol/L Chloride 96 L (98-107) mmol/L Carbon Dioxide 28 (22-30) mmol/L BUN 54 H (7-17) mg/dL Creatinine 4.51 H (0.52-1.04) mg/dL Glucose 202 H (74-99) mg/dL Calcium 6.8 L (8.4-10.2) mg/dL - Imaging US - kidney/bladder: report reviewed Assessment and Plan Assessment: Possible nephrosclerosis with history of possible left renal atrophy Severe hydronephrosis of left kidney (1) Hydronephrosis determined by ultrasound Current Visit: Yes Status: Acute Code(s): N13.30 - UNSPECIFIED HYDRONEPHROSIS SNOMED Code(s): 44746217 Plan: CT abdomen and pelvis without contrast Keep pérez in place Impression and plan of care have been directed as dictated by the signing physician. Mary Ocampo nurse practitioner acting as scribe for signing physician. Mary Ocampo [facility] Palliative Care/Urology Spectralink [id number] Email: [email or web address] I personally performed and participated in history, physical exam and decision making. I agree with the assessment and plan of the MOLD STAMPER AND REPAIRER Time with Patient: Greater than 30
--- NOTE | 2021-12-13 12:57 | P.PN ---
Subjective Patient is seen for follow-up for acute kidney injury. Patient was admitted to the hospital with generalized weakness and confusion. creatinine had increased from 3.8 on admission to 6.0. Patient had been confused and mentation had changed since the morning. Patient was also complaining of shortness of breath. There was no significant urine output. Given the significant deterioration in renal function with altered mentation and volume overload patient was started on dialysis on 12/11/2021 Patient is seen in the ICU. She remains on the vent however currently sedation is being weaned off for possible extubation. No significant urine output Ultrasound shows severe left hydronephrosis. Patient is scheduled for hemodialysis today. Objective - Vital Signs Vital signs: Vital Signs Temp 98.1 F 12/13/21 12:00 Pulse 78 12/13/21 12:00 Resp 22 12/13/21 12:00 BP 92/50 12/13/21 12:00 Pulse Ox 95 12/13/21 12:00 FiO2 35 12/13/21 12:00 Intake & Output 12/12/21 12/13/21 12/13/21 18:59 06:59 18:59 Intake Total 1696.034 6310.270 1389.806 Output Total 0 0 2440 Balance 4757.163 7418.270 -1050.194 Weight 63.5 kg 62.9 kg Intake: IV 1160 1000 520 Dextrose 5% in Water 1, 450 550 200 000 ml @ 50 mls/hr IV . Q23H VIDA with Sodium Bicarb (1 Meq/ml) 150 ml Rx#:[id number] Piperacillin-Tazobactam 3 100 100 100 .375 gm In Sodium Chloride 0.9% 100 ml @ 25 mls/hr IVPB Q12HR VIDA Rx #:[id number] Sodium Chloride 0.9% 1, 610 350 220 000 ml @ 50 mls/hr IV . Q20H VIDA Rx#:[id number] Intake, IV Titration 94.715 188.270 79.806 Amount Dexmedetomidine/0.9% NaCl 8.492 (Pmx) 400 mcg In Empty Bag 1 bag @ 0.2 MCG/KG/HR 3.145 mls/hr IV .Q24H VIDA Rx#:[id number] propofoL 1,000 mg In 94.715 188.270 71.314 Empty Bag 1 bag @ 15 MCG/ KG/MIN 5.715 mls/hr IV . [id number] PENDING SALE TO [facility] Rx#:[id number] Tube Feeding 90 Hemodialysis 700 Output: Urine 0 0 10 Hemodialysis 2430 Other: Voiding Method Indwelling Catheter Indwelling Catheter Indwelling Catheter ABP, PAP, CO, CI - Last Documented Arterial Blood Pressure 117/54 - Exam Patient is currently on the vent, sedation being weaned off Examination of the heart S1 and S2 Examination of the lungs bilateral breath sounds are heard Abdomen is soft nontender Examination of the lower extremities shows no evidence of edema CERTIFIED MEETING PROFESSIONAL exam cannot be performed - Labs CBC & Chem 7: 12/13/21 03:27 12/13/21 03:27 Labs: Abnormal Lab Results - Last 24 Hours (Table) 12/12/21 12/13/21 12/13/21 Range/Units 17:12 00:06 03:27 RBC 2.51 L (3.80-5.40) m/uL Hgb 8.4 L D (11.4-16.0) gm/dL Hct 25.1 L (34.0-46.0) % ABG pH (7.35-7.45) ABG pO2 (83-108) mmHg ABG HCO3 (21-25) mmol/L ABG Total CO2 (19-24) mmol/L Sodium (137-145) mmol/L Chloride (98-107) mmol/L BUN (7-17) mg/dL Creatinine (0.52-1.04) mg/dL Glucose (74-99) mg/dL POC Glucose (mg/dL) 192 H 185 H (70-110) mg/dL Calcium (8.4-10.2) mg/dL 12/13/21 12/13/21 12/13/21 Range/Units 03:27 05:40 06:14 RBC (3.80-5.40) m/uL Hgb (11.4-16.0) gm/dL Hct (34.0-46.0) % ABG pH 7.47 H (7.35-7.45) ABG pO2 82 L (83-108) mmHg ABG HCO3 32 H (21-25) mmol/L ABG Total CO2 33 H (19-24) mmol/L Sodium 136 L (137-145) mmol/L Chloride 96 L (98-107) mmol/L BUN 54 H (7-17) mg/dL Creatinine 4.51 H (0.52-1.04) mg/dL Glucose 202 H (74-99) mg/dL POC Glucose (mg/dL) 219 H (70-110) mg/dL Calcium 6.8 L (8.4-10.2) mg/dL 12/13/21 Range/Units 11:52 RBC (3.80-5.40) m/uL Hgb (11.4-16.0) gm/dL Hct (34.0-46.0) % ABG pH (7.35-7.45) ABG pO2 (83-108) mmHg ABG HCO3 (21-25) mmol/L ABG Total CO2 (19-24) mmol/L Sodium (137-145) mmol/L Chloride (98-107) mmol/L BUN (7-17) mg/dL Creatinine (0.52-1.04) mg/dL Glucose (74-99) mg/dL POC Glucose (mg/dL) 173 H (70-110) mg/dL Calcium (8.4-10.2) mg/dL Microbiology - Last 24 Hours (Table) 12/11/21 23:50 Gram Stain - Preliminary Sputum Sputum Culture - Preliminary 12/10/21 10:35 Blood Culture - Preliminary Blood No Growth after 48 hours 12/10/21 10:59 Blood Culture - Preliminary Blood No Growth after 48 hours 12/10/21 10:01 Urine Culture - Final Urine,Voided Escherichia coli Assessment and Plan Assessment: 1. Acute kidney injury most likely ATN currently oliguric. Started hemodialysis on 12/11/2021 for worsening renal function and uremia with mental status changes. Ultrasound shows severe left hydronephrosis. 2. CHF exacerbation acute, possibly systolic. Ejection fraction not available at this time. 3. Mental status changes possibly related to uremia with acute advanced kidney injury 4. Chronic kidney disease with previous creatinine at 1.3, NKF stage IIIB, etiology likely nephrosclerosis with history of possible left renal atrophy according to the notes. 5. UTI with urine culture growing E. coli 6. Lactic acidosis associated with underlying infection 7. Metabolic acidosis associated with acute kidney injury status post bicarb drip. Expect further improvement with dialysis Plan: Repeat hemodialysis today DC IV fluids Follow-up on CT of the abdomen Repeat labs in a.m. Repeat hemodialysis in a.m.
[2021-12-13] MEDS ORDERED: SODIUM CHLORIDE 0.65% NASAL SPRAY 44 ML BTL NASAL PRN (14:08)
--- NOTE | 2021-12-13 16:26 | CT ---
EXAMINATION TYPE: CT renal stones wo con CT DLP: 536.3 mGycm, Automated exposure control for dose reduction was used. DATE OF EXAM: 12/13/2021 4:08 PM COMPARISON: Renal ultrasound 12/11/2021. CLINICAL INDICATION:Female, 71 years old with history of Left hydronephrosis; TECHNIQUE: Standard CT of the abdomen and pelvis without IV or oral contrast. Lack of IV or oral co ntrast limits evaluation of solid and hollow organ viscera. Coronal and sagittal reformats were perfo rmed. FINDINGS: LOWER CHEST: Bilateral lower lobe subtle patchy groundglass opacities. Coronary artery calcifications . ABDOMEN LIVER: Right inferior hepatic lobe 1.2 cm cyst. Reidel morphology. GALLBLADDER AND BILE DUCTS: Moderately distended gallbladder. No biliary duct dilatation. PANCREAS: Unremarkable noncontrast appearance. SPLEEN: Indeterminate 5.4 x 4.2 cm cystic lesion within the spleen. ADRENAL GLANDS: Unremarkable noncontrast appearance. KIDNEYS AND URETERS: No hydronephrosis on the right. 3 nonobstructive right renal calculi with larges t measuring up to 3 mm. Severe left hydronephrosis with the pelvis measuring up to 8.4 cm. No ureter al dilatation. Nonobstructing left calculi measuring up to 5 mm. This may be parenchymal or vascular in etiology. There is cortical thinning of the left kidney. PELVIS BLADDER: Nondistended with Santos catheter in place. REPRODUCTIVE: The uterus is surgically absent. ABDOMEN & PELVIS STOMACH AND BOWEL: NG tube terminates within the distal stomach. Distal colonic diverticulosis withou t evidence for acute diverticulitis. The appendix is within normal limits. No evidence of bowel obstr uction. PERITONEUM: No evidence of pneumoperitoneum. Trace free fluid in the pelvis and left paracolic gutter . VASCULATURE: Severe atherosclerotic calcifications are present throughout the abdominal aorta and its branches. No evidence of aortic aneurysm. Right femoral central venous catheter identified. MUSCULOSKELETAL: No acute osseous abnormalities. No aggressive osseous lesions. LYMPH NODES: No gross evidence for lymphadenopathy. SOFT TISSUE/ABDOMINAL WALL: Unremarkable IMPRESSION: 1. Severe left hydronephrosis with cortical thinning of the left kidney. No hydroureter or obstructi ng calculus. Findings suggest chronic UPJ obstruction. 2. Nonobstructive right renal calculi with additional nonobstructive left renal calculi which may be parenchymal or vascular nature. 3. Distended gallbladder. If there is concern for acute cholecystitis, consider ultrasound for furthe r evaluation. 4. Trace ascites. 5. Indeterminate cystic splenic lesion measuring up to 5.4 cm. 6. Colonic diverticulosis without evidence for acute diverticulitis. 7. Subtle bilateral lower lobe groundglass opacities which may represent air trapping.
[2021-12-13 17:51] LABS: Glucose,Whole Blood 140 mg/dL (70-110)
[2021-12-13 23:31] LABS: Glucose,Whole Blood 227 mg/dL (70-110)
--- NOTE | 2021-12-14 01:25 | PN ---
PROGRESS NOTE SUBJECTIVE: This is a 71-year-old lady, who was admitted to hospital with acute renal failure and developed respiratory failure and is currently intubated on vent. OBJECTIVE: GENERAL: She is intubated, sedated, and is currently being dialyzed and is not making any urine. VITAL SIGNS: Heart rate is 82 beats per minute. Blood pressure is 103/52, respiratory rate is 20. The patient is on a FiO2 of 35%. CHEST: Reveals diminished air entry at the bases. HEART: Reveals first and second heart sounds. No gallop. ABDOMEN: Soft. EXTREMITIES: Examination of the extremities reveals 1+ edema. Peripheral pulses are diminished. LABORATORY DATA: Show potassium 3.9. BUN is 54, creatinine is 4.7. ASSESSMENT: 1. Acute renal failure. 2. Elevated troponin secondary to renal failure. 3. History of deep venous thrombosis. PLAN: Continue current measures. MMKRISTENL / SILVANON: [id number] /
[2021-12-14 05:38] LABS: Glucose,Whole Blood 230 mg/dL (70-110)
[2021-12-14] MEDS: INSULIN ASPART (NovoLOG) 100 UNIT/ML VIAL SQ SCH ×4 (05:56→20:47)
[2021-12-14] MEDS: methylPREDNISolone SOD SUCCI 125 MG/2 ML VIAL IV SCH (05:57)
--- NOTE | 2021-12-14 07:32 | XR ---
EXAMINATION TYPE: XR chest 1V portable DATE OF EXAM: 12/14/2021 4:50 AM COMPARISON: Chest radiograph from one day prior. TECHNIQUE: XR chest 1V portable Portable AP radiograph of the chest. CLINICAL INDICATION:Female, 71 years old with history of Tube placement; FINDINGS: Lungs/Pleura: Left basilar airspace opacities are similar, there is trace left pleural effusion. Emph ysematous changes are noted. Pulmonary vascularity: Unremarkable. Heart/mediastinum: Cardiomediastinal silhouette is unremarkable. Musculoskeletal: No acute osseous pathology. Lines/Tubes: Endotracheal tube with distal tip 5.6 cm above the candi Nasogastric tube with its distal tip and side-port projecting under the diaphragm. IMPRESSION: No change from one day prior with left basilar airspace opacities and possible left pleural effusion.
[2021-12-14 07:49] LABS: Calcium 7.1 mg/dL (8.4-10.2); Potassium 4.5 mmol/L (3.5-5.1)
[2021-12-14] MEDS: PANTOPRAZOLE 40 MG/10 ML VIAL IV SCH (07:49)
[2021-12-14] MEDS: PIPERACILLIN-TAZOBACTAM 3.375 GM in SODIUM CHLORIDE 0.9% 100 ML IVPB SCH ×2 (07:49→20:49)
[2021-12-14] MEDS: CHLORHEXIDINE GLUCONATE 15 ML CUP MUCOUS MEM SCH ×2 (07:50→19:52)
[2021-12-14 07:54] LABS: HCT 25.3 % (34.0-46.0); HGB 7.9 gm/dL (11.4-16.0); Hypochromasia Moderate; MCH 31.9 pg (25.0-35.0); MCHC 31.2 g/dL (31.0-37.0); MCV 102.4 fL (80.0-100.0); Macrocytosis Slight; Mean Platelet Volume 8.9; Platelet Count 200 k/uL (150-450); RBC 2.47 m/uL (3.80-5.40); RDW 14.7 % (11.5-15.5); WBC 4.1 k/uL (3.8-10.6)
[2021-12-14] MEDS: FORMOTEROL FUMARATE 20 MCG/2 ML NEBU INHALATION SCH ×2 (08:03→20:32)
[2021-12-14] MEDS: BUDESONIDE 1 MG/2 ML NEBU INHALATION SCH ×2 (08:03→20:32)
[2021-12-14] MEDS: IPRATROPIUM-ALBUTEROL 3 ML NEB INHALATION SCH ×4 (08:03→20:32)
--- NOTE | 2021-12-14 08:33 | P.PN ---
Subjective Progress Note Date: 12/14/21 Patient was initially and admitted to the hospital with acute renal failure and developed respiratory failure requiring intubation. We will consult to see the patient due to elevated troponins and abnormal wall motion noted on echocardiogram.. Patient is seen today resting comfortably in the ICU she is sedated and mechanically ventilated. She is in no signs of acute distress. Vitals remained stable. She has sinus rhythm on the monitor. Plan is to hopefully extubate the patient today. will continue with current cardiac medications Objective - Vital Signs Vital signs: Vital Signs Temp 98.2 F 12/14/21 08:00 Pulse 74 12/14/21 08:25 Resp 22 12/14/21 08:00 BP 109/51 12/14/21 08:00 Pulse Ox 95 12/14/21 08:00 FiO2 35 12/14/21 08:00 Intake & Output 12/13/21 12/14/21 12/14/21 18:59 06:59 18:59 Intake Total 1689.806 940.504 280 Output Total 2450 0 0 Balance -760.194 940.504 280 Weight 62.6 kg Intake: IV 590 320 160 0.9 220 60 Dextrose 5% in Water 1, 200 000 ml @ 50 mls/hr IV . Q23H VIDA with Sodium Bicarb (1 Meq/ml) 150 ml Rx#:[id number] Piperacillin-Tazobactam 3 100 100 100 .375 gm In Sodium Chloride 0.9% 100 ml @ 25 mls/hr IVPB Q12HR [facility] Rx #:[id number] Sodium Chloride 0.9% 1, 290 000 ml @ 50 mls/hr IV . Q20H [facility] Rx#:[id number] Intake, IV Titration 79.806 90.504 Amount Dexmedetomidine/0.9% NaCl 8.492 90.504 (Pmx) 400 mcg In Empty Bag 1 bag @ 0.2 MCG/KG/HR 3.145 mls/hr IV .Q24H [facility] Rx#:[id number] propofoL 1,000 mg In 71.314 Empty Bag 1 bag @ 15 MCG/ KG/MIN 5.715 mls/hr IV . [id number] [facility] Rx#:[id number] Tube Feeding 320 440 120 Hemodialysis 700 Other 90 Output: Urine 20 0 0 Hemodialysis 2430 Other: Voiding Method Indwelling Catheter Indwelling Catheter Indwelling Catheter ABP, PAP, CO, CI - Last Documented Arterial Blood Pressure 117/54 - Exam PHYSICAL EXAM: VITAL SIGNS: Reviewed. GENERAL: Well-developed in no acute distress. HEENT: Head is normocephalic. Pupils are equal, round. Sclerae anicteric. Mucous membranes of the mouth are moist. NECK: Supple. No JVD or thyromegaly RESPIRATORY: Mechanically ventilated CARDIO: Regular rate and rhythm. S1 and S2 heard. No murmur or gallops. EXTREMITIES: Normal range of motion. No clubbing or cyanosis. Peripheral pulses intact. Negative for bilateral lower extremity edema NEURO: Patient is sedated - Labs CBC & Chem 7: 12/14/21 06:12 12/14/21 06:12 Labs: Abnormal Lab Results - Last 24 Hours (Table) 12/13/21 12/13/21 12/13/21 Range/Units 11:52 17:50 23:30 RBC (3.80-5.40) m/uL Hgb (11.4-16.0) gm/dL Hct (34.0-46.0) % MCV (80.0-100.0) fL Sodium (137-145) mmol/L BUN (7-17) mg/dL Creatinine (0.52-1.04) mg/dL Glucose (74-99) mg/dL POC Glucose (mg/dL) 173 H 140 H 227 H (70-110) mg/dL Calcium (8.4-10.2) mg/dL 12/14/21 12/14/21 12/14/21 Range/Units 05:37 06:12 06:12 RBC 2.47 L (3.80-5.40) m/uL Hgb 7.9 L (11.4-16.0) gm/dL Hct 25.3 L (34.0-46.0) % MCV 102.4 H (80.0-100.0) fL Sodium 136 L (137-145) mmol/L BUN 56 H (7-17) mg/dL Creatinine 3.65 H (0.52-1.04) mg/dL Glucose 217 H (74-99) mg/dL POC Glucose (mg/dL) 230 H (70-110) mg/dL Calcium 7.1 L (8.4-10.2) mg/dL Microbiology - Last 24 Hours (Table) 12/10/21 10:59 Blood Culture - Preliminary Blood No Growth after 72 hours 12/10/21 10:35 Blood Culture - Preliminary Blood No Growth after 72 hours Assessment and Plan Assessment: Acute renal failure Elevated troponin secondary to renal failure History of DVT Plan: Continue with current cardiac medications Continue with telemetry monitoring Further recommendations based on clinical course The above impression and plan of care have been discussed and directed by the signing physician. Brenda Hendrix, nurse practitioner, acting as scribe for signing physician.
--- NOTE | 2021-12-14 08:58 | P.PN ---
Subjective Progress Note Date: 12/13/21 This is a 71-year-old female who was recently admitted with change in mental status and increased hypoxia and shortness of breath and being closely monitored. Multiple medical consultations following and patient had worsening hypoxia and abnormal ABG and brought to the ICU and patient was ultimately pl aced on mechanical vent. Patient is maintained on IV Zosyn and also emergently received a temporary dialysis catheter and is undergoing hemodialysis with nephrology following closely. Patient's kidney functions worsened and emergently started on dialysis. Patient is on mechanical vent with FiO2 of 35% with PEEP of 5. Patient was initiated on emergent dialysis last night and receiving again today. 12/13/2021 Patient is seen and evaluated in follow-up in the ICU with multiple medical consultations following. Patient continues on mechanical vent under sedation FiO2 is 35% with a PEEP of 5. Chest x-ray today shows chronic emphysematous changes with small to tiny bilateral pleural effusions and left basilar acute infiltrate and/or atelectasis noted. Patient also underwent EEG and was a bnormal with periods of suppression suggesting generalized cerebral dysfunction that can be seen in encephalopathy or medication induced. No epileptiform discharges noted. Patient continues on hemodialysis, sodium bicarb drip with nephrology following closely. Patient also continues on DuoNeb treatments along with IV steroids and will continue. Patient is on antibiotics and sputum cultures pending and preliminary cultures of blood thus far negative. Urine culture showed E. coli. Review of systems: Unable to obtain as patient is on vent and sedated All medications have been reviewed Active Medications Acetaminophen (Acetaminophen Tab 325 Mg Tab) 650 mg PO Q6HR PRN PRN Reason: Mild Pain or Fever > 100.5 Last Admin: 12/13/21 00:14 Dose: 650 mg Albuterol/Ipratropium (Ipratropium-Albuterol 3 Ml Neb) 3 ml INHALATION RT-QID VIDA Last Admin: 12/13/21 07:27 Dose: 3 ml Albuterol/Ipratropium (Ipratropium-Albuterol 3 Ml Neb) 3 ml INHALATION RT-Q4H PRN PRN Reason: Shortness Of Breath Or Wheezing Last Admin: 12/13/21 04:13 Dose: 3 ml Apixaban (Apixaban 5 Mg Tab) 5 mg PO BID VIDA; Protocol Last Admin: 12/13/21 08:32 Dose: Not Given Budesonide (Budesonide 1 Mg/2 Ml Nebu) 1 mg INHALATION RT-BID VIDA Last Admin: 12/13/21 07:27 Dose: 1 mg Chlorhexidine Gluconate (Chlorhexidine Gluconate 15 Ml Cup) 15 ml MUCOUS MEM BID VIDA Last Admin: 12/13/21 07:59 Dose: 15 ml Dextrose/Water (Dextrose 50% Syringe 50 Ml) 25 ml IVP PER PROTOCOL PRN; Protocol PRN Reason: Hypoglycemia Dextrose/Water (Dextrose 50% Syringe 50 Ml) 50 ml IVP PER PROTOCOL PRN; Protocol PRN Reason: Hypoglycemia Formoterol Fumarate (Formoterol Fumarate 20 Mcg/2 Ml Nebu) 20 mcg INHALATION RT-BID VIDA Last Admin: 12/13/21 07:40 Dose: 20 mcg Piperacillin Sod/Tazobactam (Sod 3.375 gm/ Sodium Chloride) 100 mls @ 25 mls/hr IVPB Q12HR VIDA; Protocol Last Admin: 12/13/21 07:58 Dose: 25 mls/hr Sodium Chloride (Saline 0.9%) 1,000 mls @ 50 mls/hr IV .Q20H VIDA Last Admin: 12/12/21 20:05 Dose: 50 mls/hr Propofol 1,000 mg/ IV Solution 100 mls @ 5.715 mls/hr IV .[id number] VIDA; Protocol Last Titration: 12/13/21 08:17 Dose: 40 mcg/kg/min, 15.241 mls/hr Sodium Bicarbonate 150 ml/ (Dextrose/Water) 1,150 mls @ 50 mls/hr IV .Q23H VIDA Last Admin: 12/13/21 06:00 Dose: 50 mls/hr Dexmedetomidine HCl 400 mcg/ (IV Solution) 100 mls @ 3.145 mls/hr IV .Q24H VIDA; Protocol Insulin Aspart (Insulin Aspart (Novolog) 100 Unit/Ml Vial) 0 unit SQ Q6H VIDA; Protocol Last Admin: 12/13/21 05:59 Dose: 2 unit Methylprednisolone Sodium Succinate (Methylprednisolone Sod Succi 125 Mg/2 Ml Vial) 60 mg IV Q6HR VIDA Last Admin: 12/13/21 05:59 Dose: 60 mg Naloxone HCl (Naloxone 0.4 Mg/Ml 1 Ml Vial) 0.2 mg IV Q2M PRN PRN Reason: Opioid Reversal Pantoprazole Sodium (Pantoprazole 40 Mg/10 Ml Vial) 40 mg IV DAILY VIDA Last Admin: 12/13/21 07:58 Dose: 40 mg PHYSICAL EXAMINATION: GENERAL: The patient is currently on mechanical ventilation and sedated. Ill appearing, elderly female HEENT: Pupils are round and equally reacting to light. EOMI. no scleral icterus. No conjunctival pallor. Normocephalic, atraumatic. No pharyngeal erythema. No thyromegaly. CARDIOVASCULAR: S1 and S2 muffled PULMONARY: diminished breath sounds bilaterally with scattered rhonchi and crackles noted. ABDOMEN: soft. Nontender on exam. non-distended, normoactive bowel sounds. No palpable organomegaly. MUSCULOSKELETAL: No joint swelling or deformity. EXTREMITIES: No cyanosis, clubbing, or pedal edema. NEUROLOGICAL: Gross neurological examination did not reveal any focal deficits. Unable to completely assess as patient is sedated on mechanical vent. Diffuse weakness SKIN: No rashes. Assessment: Change in mental status, acute metabolic encephalopathy Acute on chronic hypoxic respiratory failure requiring mechanical ventilation on 12/11/2021 Congestive heart failure and chronic obstructive pulmonary disease, acute exacerbation Acute renal failure requiring emergent dialysis catheter placement and hemodialysis started last night Troponin indeterminate at 0.119 Degenerative joint disease History of DVT Gastroesophageal reflux disease Osteoarthritis Chronic bullous emphysema history Former smoker of 40+ years GI prophylaxis DVT prophylaxis Full code Plan: Recommend to continue with current medications and management and is now in the ICU on mechanical ventilation with an FI02 of 35% and peep of 5. Multiple medical consultations following and patient is receiving emergent dialysis with nephrology following and has been daily. Prognosis is extremely guarded. Patient continued on sedation and not requiring pressor support at this time. Blood pre ssures are soft and being monitored closely recommend continuous telemetry monitoring. Renal CT was done showing severe left hydronephrosis with cortical thinning of the left kidney and no hydroureter or obstructing calculus findings suggest chronic UPJ obstruction with nonobstructive right renal calculi with additional nonobstructive left renal calculi a distended gallbladder, trace ascites, indeterminate cystic splenic lesion measuring up to 5.4 cm, subtle bilateral lower lobe groundglass opacification is which may represent air trapping and some colonic diverticulosis with no evidence of diverticulitis. Urology has been consulted.. Due to multiple complex medical issues, prognosis is extremely guarded. The impression and plan of care has been dictated by Carmen Yeboah, nurse practitioner as directed. Dr. Get MD I have performed a history and examination and MDM of this patient, discussed the same with the dictator, and agree with the dictator's assessment and plan as written ,documented as a scribe. Based on total visit time, I have performed more than 50% of the visit. Any additional findings or plans will be noted. Objective - Vital Signs Vital signs: Vital Signs Temp 99.0 F 12/13/21 09:01 Pulse 89 12/13/21 09:01 Resp 19 12/13/21 09:01 BP 124/69 12/13/21 09:01 Pulse Ox 94 L 12/13/21 08:00 FiO2 35 12/13/21 08:00 Intake & Output 12/12/21 12/13/21 12/13/21 18:59 06:59 18:59 Intake Total 9738.159 8183.270 678.102 Output Total 0 0 1510 Balance 1610.449 8096.270 -831.898 Weight 63.5 kg 62.9 kg Intake: IV 1160 1000 200 Dextrose 5% in Water 1, 450 550 100 000 ml @ 50 mls/hr IV . Q23H [facility] with Sodium Bicarb (1 Meq/ml) 150 ml Rx#:[id number] Piperacillin-Tazobactam 3 100 100 .375 gm In Sodium Chloride 0.9% 100 ml @ 25 mls/hr IVPB Q12HR V[facility] Rx #:[id number] Sodium Chloride 0.9% 1, 610 350 100 000 ml @ 50 mls/hr IV . Q20H [facility] Rx#:[id number] Intake, IV Titration 94.715 188.270 38.102 Amount propofoL 1,000 mg In 94.715 188.270 38.102 Empty Bag 1 bag @ 15 MCG/ KG/MIN 5.715 mls/hr IV . [id number] VIDA Rx#:[id number] Tube Feeding 40 Hemodialysis 400 Output: Urine 0 0 10 Hemodialysis 1500 Other: Voiding Method Indwelling Catheter Indwelling Catheter Indwelling Catheter ABP, PAP, CO, CI - Last Documented Arterial Blood Pressure 117/54 - Labs CBC & Chem 7: 12/14/21 06:12 12/14/21 06:12 Labs: Abnormal Lab Results - Last 24 Hours (Table) 12/12/21 12/12/21 12/13/21 Range/Units 11:59 17:12 00:06 RBC (3.80-5.40) m/uL Hgb (11.4-16.0) gm/dL Hct (34.0-46.0) % ABG pH (7.35-7.45) ABG pO2 (83-108) mmHg ABG HCO3 (21-25) mmol/L ABG Total CO2 (19-24) mmol/L Sodium (137-145) mmol/L Chloride (98-107) mmol/L BUN (7-17) mg/dL Creatinine (0.52-1.04) mg/dL Glucose (74-99) mg/dL POC Glucose (mg/dL) 165 H 192 H 185 H (70-110) mg/dL Calcium (8.4-10.2) mg/dL 12/13/21 12/13/21 12/13/21 Range/Units 03:27 03:27 05:40 RBC 2.51 L (3.80-5.40) m/uL Hgb 8.4 L D (11.4-16.0) gm/dL Hct 25.1 L (34.0-46.0) % ABG pH (7.35-7.45) ABG pO2 (83-108) mmHg ABG HCO3 (21-25) mmol/L ABG Total CO2 (19-24) mmol/L Sodium 136 L (137-145) mmol/L Chloride 96 L (98-107) mmol/L BUN 54 H (7-17) mg/dL Creatinine 4.51 H (0.52-1.04) mg/dL Glucose 202 H (74-99) mg/dL POC Glucose (mg/dL) 219 H (70-110) mg/dL Calcium 6.8 L (8.4-10.2) mg/dL 12/13/21 Range/Units 06:14 RBC (3.80-5.40) m/uL Hgb (11.4-16.0) gm/dL Hct (34.0-46.0) % ABG pH 7.47 H (7.35-7.45) ABG pO2 82 L (83-108) mmHg ABG HCO3 32 H (21-25) mmol/L ABG Total CO2 33 H (19-24) mmol/L Sodium (137-145) mmol/L Chloride (98-107) mmol/L BUN (7-17) mg/dL Creatinine (0.52-1.04) mg/dL Glucose (74-99) mg/dL POC Glucose (mg/dL) (70-110) mg/dL Calcium (8.4-10.2) mg/dL Microbiology - Last 24 Hours (Table) 12/11/21 23:50 Gram Stain - Preliminary Sputum Sputum Culture - Preliminary 12/10/21 10:35 Blood Culture - Preliminary Blood No Growth after 48 hours 12/10/21 10:59 Blood Culture - Preliminary Blood No Growth after 48 hours 12/10/21 10:01 Urine Culture - Final Urine,Voided Escherichia coli
[2021-12-14] MEDS ORDERED: ENOXAPARIN 30 MG/0.3 ML SYRINGE SQ SCH (09:00)
[2021-12-14] MEDS: DEXMEDETOMIDINE/0.9% NACL(PMX) 400 MCG in EMPTY BAG 1 BAG IV SCH (10:16)
--- NOTE | 2021-12-14 11:30 | P.PN ---
Subjective Patient is seen for follow-up for acute kidney injury. Patient was admitted to the hospital with generalized weakness and confusion. creatinine had increased from 3.8 on admission to 6.0. Oliguric. Patient had been confused and mentation had deteriorated with worsening respiratory status. Given the significant deterioration in renal function with altered mentation and volume overload patient was started on dialysis on 12/11/2021 Patient had jerky movements about an hour into her first dialysis session with possibility of seizures. She was intubated and transferred to the ICU. Patient is seen in the ICU. Patient was extubated yesterday No significant urine output Ultrasound shows severe left hydronephrosis. Patient is seen on hemodialysis today. She is awake and answering questions appropriately. Objective - Vital Signs Vital signs: Vital Signs Temp 98.2 F 12/14/21 08:00 Pulse 81 12/14/21 11:20 Resp 25 H 12/14/21 09:00 BP 103/51 12/14/21 09:00 Pulse Ox 96 12/14/21 09:00 FiO2 35 12/14/21 08:00 Intake & Output 12/13/21 12/14/21 12/14/21 18:59 06:59 18:59 Intake Total 1689.806 940.504 294.311 Output Total 2450 0 0 Balance -760.194 940.504 294.311 Weight 62.6 kg Intake: IV 590 320 160 0.9 220 60 Dextrose 5% in Water 1, 200 000 ml @ 50 mls/hr IV . Q23H VIDA with Sodium Bicarb (1 Meq/ml) 150 ml Rx#:[id number] Piperacillin-Tazobactam 3 100 100 100 .375 gm In Sodium Chloride 0.9% 100 ml @ 25 mls/hr IVPB Q12HR VIDA Rx #:[id number] Sodium Chloride 0.9% 1, 290 000 ml @ 50 mls/hr IV . Q20H VIDA Rx#:[id number] Intake, IV Titration 79.806 90.504 14.311 Amount Dexmedetomidine/0.9% NaCl 8.492 90.504 14.311 (Pmx) 400 mcg In Empty Bag 1 bag @ 0.2 MCG/KG/HR 3.145 mls/hr IV .Q24H VIDA Rx#:[id number] propofoL 1,000 mg In 71.314 Empty Bag 1 bag @ 15 MCG/ KG/MIN 5.715 mls/hr IV . [id number] [facility] Rx#:[id number] Tube Feeding 320 440 120 Hemodialysis 700 Other 90 Output: Urine 20 0 0 Hemodialysis 2430 Other: Voiding Method Indwelling Catheter Indwelling Catheter Indwelling Catheter ABP, PAP, CO, CI - Last Documented Arterial Blood Pressure 117/54 - Exam Patient is awake, comfortable, in no acute distress Examination of the heart S1 and S2 Examination of the lungs bilateral breath sounds are heard Abdomen is soft nontender Examination of the lower extremities shows no evidence of edema FLOOR PERSON exam is grossly intact - Labs CBC & Chem 7: 12/14/21 06:12 12/14/21 06:12 Labs: Abnormal Lab Results - Last 24 Hours (Table) 12/13/21 12/13/21 12/13/21 Range/Units 11:52 17:50 23:30 RBC (3.80-5.40) m/uL Hgb (11.4-16.0) gm/dL Hct (34.0-46.0) % MCV (80.0-100.0) fL Sodium (137-145) mmol/L BUN (7-17) mg/dL Creatinine (0.52-1.04) mg/dL Glucose (74-99) mg/dL POC Glucose (mg/dL) 173 H 140 H 227 H (70-110) mg/dL Calcium (8.4-10.2) mg/dL 12/14/21 12/14/21 12/14/21 Range/Units 05:37 06:12 06:12 RBC 2.47 L (3.80-5.40) m/uL Hgb 7.9 L (11.4-16.0) gm/dL Hct 25.3 L (34.0-46.0) % MCV 102.4 H (80.0-100.0) fL Sodium 136 L (137-145) mmol/L BUN 56 H (7-17) mg/dL Creatinine 3.65 H (0.52-1.04) mg/dL Glucose 217 H (74-99) mg/dL POC Glucose (mg/dL) 230 H (70-110) mg/dL Calcium 7.1 L (8.4-10.2) mg/dL Microbiology - Last 24 Hours (Table) 10/18/22 23:50 Gram Stain - Final Sputum Sputum Culture - Final 12/10/21 10:59 Blood Culture - Preliminary Blood No Growth after 72 hours 12/10/21 10:35 Blood Culture - Preliminary Blood No Growth after 72 hours Assessment and Plan Assessment: 1. Acute kidney injury most likely ATN currently oliguric. Started hemodialysis on 12/11/2021 for worsening renal function and uremia with mental status changes. Ultrasound shows severe left hydronephrosis. No hydronephrosis on the right kidney. Urology on consult 2. CHF exacerbation acute, possibly systolic. Ejection fraction not available at this time. 3. Mental status changes possibly related to uremia with acute advanced kidney injury 4. Chronic kidney disease with previous creatinine at 1.3, NKF stage IIIB, etiology likely nephrosclerosis/obstructive uropathy 5. UTI with urine culture growing E. coli 6. Lactic acidosis associated with underlying infection 7. Metabolic acidosis associated with acute kidney injury status post bicarb drip. Expect further improvement with dialysis 8. Anemia rule out iron deficiency, possible anemia of chronic disease. Plan: Hemodialysis in a.m. Workup for left hydronephrosis as per urology. Patient needs cystoscopy. Add Aranesp Check iron profile.
--- NOTE | 2021-12-14 11:32 | P.PN ---
Subjective Progress Note Date: 12/14/21 Principal diagnosis: Altered mental status, possible seizure- This 71-year-old female patient who presented to the emergency room yesterday via EMS as her family had noted a 4 day history of generalized weakness and confusion. She has a known history of advanced chronic obstructive pulmonary disease with previous history of heavy tobacco dependence. Her FEV1 ranges between 30 and 35% of predicted. She is maintained on Dulera, Spiriva and albuterol in the outpatient setting. She has a nebulizer for treatments as well. She is also oxygen dependent on 2 L at home. She was discharged One month ago for an acute on chronic hypoxic respiratory failure secondary to COPD exacerbation without clear evidence of pneumonia. Chest x-ray showing bilateral interstitial edema on background bilateral chronic parenchymal changes. Most likely fluid overload state. Echocardiogram reveals preserved left ventricular systolic ejection fraction of 50-55%. Basilar inferior hypokinesis. No pericardial effusion. Computed tomography scan of the brain revealed no acute intracranial hemorrhage or midline shift. There is [id number] diffuse age-related cerebral atrophy and mild chronic small vessel ischemic changes noted. Follow-up chest x-ray continues show some interstitial changes. Evidence of emphysema. Urine culture is positive for gram-negative bacilli. Blood cultures are pending. White count 10.1. Hemoglobin 11.3. Sodium 139. Potassium 4.3. Bicarb 19. BUN 65. Creatinine 6.00. Pro calcitonin 6.11. Troponin leak at 0.11, 0.11, 0.12. ProBNP 15,600. Ocampo virus not detected. Influenza screen negative. She's been initiated on DuoNeb inhalations, Pulmicort inhalations. Anticoagulated with Eliquis. She is seen today in consultation on the selective care unit. She is currently resting in bed. Awake. Confused to time and place. Maintaining O2 saturation in the low 90s on 3 L/m per nasal cannula. Afebrile. Arterial blood gases on 28% FiO2 revealed a pO2 of 79, pCO2 38, pH 7.27. Nephrology is on regarding acute renal failure with a GFR of 7. Reevaluated today on 12/12/21, patient developed a sudden onset seizure yesterday and this was witnessed, this was noted shortly after dialysis was started. Patient never lost her pulse, however she was post ictal after the seizure, and her breathing was noted to be agonal. Hence the patient was intubated by [employer], sent down for a CT of the head which was normal, transferred to ICU on mechanical ventilation. Patient is yet to be seen by neurology on consultation, she had EEG and CT of the head yesterday. Today she is on mechanical ventilation, assist control rate of 20, volume of 500 FiO2 30% and PEEP of 5. ABG showed a pO2 of 135 pCO2 36 pH of 7.28, hence the changes made included increase FiO2 up to 35% increase tidal volume down to 450 increase respiratory rate to 22 started patient on a bicarb drip at 50 mL per hour and cut down her IV fluid to 50 mL per hour. Considering her hemodynamic status, and considering the patient isn't requiring dialysis, a right radial arterial line was placed on emergent basis. Patient had no urine output yesterday, she is scheduled to undergo dialysis again today. CT of the brain was negative. Ultrasound of the kidneys showed left sided hydronephrosis. Right kidney seems to be intact. Patient is on propofol at 50 mcg/kg/m, she is not requiring any pressors. She is fully sedated, however I plan to cut down on the propofol, and hopefully assess mental status off propofol. This will be done later today after the patient is dialyzed, and after seen by neurology consider starting the patient on seizure medications, likely Keppra. EEG is yet to be evaluated by neurology. WBC count today is 7.5 hemoglobin is 10.3. Basic metabolic profile is normal renal profile showed a BUN of 64 creatinine 6.63. Patient is now on eliquis 5 mg by mouth twice a day Pulmicort [facility], Perforomist [facility], she is also on a bicarb drip at 50 mL per hour, insulin as per protocol, DuoNeb, Solu-Medrol 60 mg IV push every 6 hours, Protonix 40 mg IV push daily, Zosyn empirically, since her chest x-rays showing possible left lower lobe new infiltrate. Patient was noted to have evidence of possible UTI, and she also had elevated pro calcitonin level on admission. Reevaluated today on 12/13/21, patient remains in the ICU, intubated and mechanically ventilated. She is on assist control rate of 22, volume 450 FiO2 35% PEEP of 5. ABG showed a pO2 of 82 pCO2 44 pH of 7.47 hence no changes were made in her ventilator settings. Patient dropped her hemoglobin from 10.3-8.4, she has some minimal oozing around the dialysis catheter, and yesterday she was oozing around the arterial line which we have discontinued. Today I look back and found that the patient has been on eliquis for DVT from over 4 months ago. Hence I recommended stopping eliquis and we will check a venous Doppler make sure there is no active DVT in lower extremities. Patient will have hemodialysis again today. She is on propofol at 20 mcg/kg/m she is also on a bicarb drip at 50 mL/h, she is also receiving vital HP at 2 5 mL an hour chest x-ray is showing bibasilar airspace disease, possibility of aspiration pneumonia is very likely patient remains on Zosyn. EEG done yesterday showed no evidence of seizure focus, hence the patient was not placed on any antiseizure medication as recommended by neurology. WBC count today is 5.4 hemoglobin is 8.4, linsey ctrolytes are normal bicarb is 28 hence I will discontinue her bicarb. Her BUN is 54 creatinine 4.51. Urine culture on this admission showed E. coli, sensitive to Zosyn, patient remains on Zosyn. Blood cultures have been negative along, sputum cultures are nondiagnostic. Patient was reevaluated today on 12/14/21, patient remains in the ICU, intubated and mechanically ventilated. She is on assist control rate of 22, tidal volume is 450 FiO2 35% and PEEP of 5.Patient is on Precedex at 0.3 mcg/kg per hour. Patient is awake, arousable, follows simple instructions, and her labs were reviewed she had a relatively normal CBC WBC is 4.1 hemoglobin is 7.9. Basic metabolic profile is normal however her BUN is 56 creatinine 3.65, patient is scheduled to undergo hemodialysis again today. Chest x-ray showed mostly stable left basilar opacity consistent with infiltrate. Right side seems to be much clearer today. Urine cultures were positive for E. coli on admission. Otherwise the rest of the cultures including blood and sputum were negative so far. Patient remains on bronchodilators, she is also on methylprednisolone 60 mg IV push every 6 hours, and she is on Zosyn. Considering the patient is awake, arousable, and considering she is appropriate mentally, I recommended a short trial of pressure support and CPAP with a pressure support of 10 while I was at bedside. Checking on the patient with pressure support and CPAP mode of mechanical ventilation, and half an hour later patient continued to tolerate that quite well, and her weaning parameters look reasonable, went ahead and recommended extubating the patient. Patient was extubated uneventfully, placed on nasal cannula. Patient is to have hemodialysis today. And she was seen yesterday by urology for left sided hydronephrosis, again this is being addressed by urology on the case Objective - Vital Signs Vital signs: Vital Signs Temp 98.2 F 12/14/21 08:00 Pulse 81 12/14/21 11:20 Resp 25 H 12/14/21 09:00 BP 103/51 12/14/21 09:00 Pulse Ox 96 12/14/21 09:00 FiO2 35 12/14/21 08:00 Intake & Output 12/13/21 12/14/21 12/14/21 18:59 06:59 18:59 Intake Total 1689.806 940.504 294.311 Output Total 2450 0 0 Balance -760.194 940.504 294.311 Weight 62.6 kg Intake: IV 590 320 160 0.9 220 60 Dextrose 5% in Water 1, 200 000 ml @ 50 mls/hr IV . Q23H [facility] with Sodium Bicarb (1 Meq/ml) 150 ml Rx#:[id number] Piperacillin-Tazobactam 3 100 100 100 .375 gm In Sodium Chloride 0.9% 100 ml @ 25 mls/hr IVPB Q12HR [facility] Rx #:[id number] Sodium Chloride 0.9% 1, 290 000 ml @ 50 mls/hr IV . Q20H [facility] Rx#:[id number] Intake, IV Titration 79.806 90.504 14.311 Amount Dexmedetomidine/0.9% NaCl 8.492 90.504 14.311 (Pmx) 400 mcg In Empty Bag 1 bag @ 0.2 MCG/KG/HR 3.145 mls/hr IV .Q24H [facility] Rx#:[id number] propofoL 1,000 mg In 71.314 Empty Bag 1 bag @ 15 MCG/ KG/MIN 5.715 mls/hr IV . [id number] VIDA Rx#:[id number] Tube Feeding 320 440 120 Hemodialysis 700 Other 90 Output: Urine 20 0 0 Hemodialysis 2430 Other: Voiding Method Indwelling Catheter Indwelling Catheter Indwelling Catheter ABP, PAP, CO, CI - Last Documented Arterial Blood Pressure 117/54 - Exam Physical Exam: Revealed 71-year-old female, intubated, mechanically ventilated, awake, in no distress. Patient is on Precedex. Head: Atraumatic, normocephalic. HEENT:[Neck is supple.] [No neck masses.] [No thyromegaly.] [No JVD.] Endotracheal tube and orogastric tube are intact. Chest: [Symmetrical chest expansion, clear bilaterally minimal crackles at the left base. Cardiac Exam: [Normal S1 and S2, no S3 gallop, no murmur.] Abdomen: [Soft, nontender, no megaly, no rebound, no guarding, normal bowel sounds.] Extremities: [No clubbing, no edema, no cyanosis.] Good pulses bilaterally. Musculoskeletal: No deformities. No limitations in range of motion Neurological Exam: Alert and oriented 3, no gross focal neurologic deficits. Psychiatric: Normal mood, affect and normal mental status examination. Skin: No rashes. - Labs CBC & Chem 7: 12/14/21 06:12 12/14/21 06:12 Labs: Abnormal Lab Results - Last 24 Hours (Table) 12/13/21 12/13/21 12/13/21 Range/Units 11:52 17:50 23:30 RBC (3.80-5.40) m/uL Hgb (11.4-16.0) gm/dL Hct (34.0-46.0) % MCV (80.0-100.0) fL Sodium (137-145) mmol/L BUN (7-17) mg/dL Creatinine (0.52-1.04) mg/dL Glucose (74-99) mg/dL POC Glucose (mg/dL) 173 H 140 H 227 H (70-110) mg/dL Calcium (8.4-10.2) mg/dL 12/14/21 12/14/21 12/14/21 Range/Units 05:37 06:12 06:12 RBC 2.47 L (3.80-5.40) m/uL Hgb 7.9 L (11.4-16.0) gm/dL Hct 25.3 L (34.0-46.0) % MCV 102.4 H (80.0-100.0) fL Sodium 136 L (137-145) mmol/L BUN 56 H (7-17) mg/dL Creatinine 3.65 H (0.52-1.04) mg/dL Glucose 217 H (74-99) mg/dL POC Glucose (mg/dL) 230 H (70-110) mg/dL Calcium 7.1 L (8.4-10.2) mg/dL Microbiology - Last 24 Hours (Table) 12/11/21 23:50 Gram Stain - Final Sputum Sputum Culture - Final 12/10/21 10:59 Blood Culture - Preliminary Blood No Growth after 72 hours 12/10/21 10:35 Blood Culture - Preliminary Blood No Growth after 72 hours Assessment and Plan Assessment: Impression: Acute respiratory failure secondary to new seizure-like activity with agonal breathing both seizure-like activity requiring intubation and mechanical ventilation. EEG showed no evidence of seizure focus. It did show evidence of metabolic encephalopathy. Acute on chronic hypoxic respiratory failure secondary to underlying COPD and possibly acute diastolic congestive heart failure. Patient has severe COPD, she is on home O2, FEV1 is 30%. Possible aspiration pneumonia is being considered, hence we'll continue Zosyn Acute E. coli urinary tract infection, on Zosyn. New-onset seizures Chronic smoking History of left lower extremity DVT repeat venous Doppler showed improvement from previous study however she continues to have partially occlusive thrombus in the left lower extremity, and I'm planning to place the patient back on eliquis. This was placed on hold the last 2 days. Chronic back pain History of GERD Acute kidney injury, patient is requiring hemodialysis her baseline creatinine back in October was 1.34. GFR was 41 the patient developed acute on chronic kidney injury. Recommendation: We will extubate the patient today after trial of pressure support and CPAP. Continue Precedex, taper and possibly discontinue today. Discontinue orogastric tube and advanced diet as tolerated Continue GI and DVT prophylaxis Continue antibiotics/Zosyn Continue bronchodilators. Continue hemodialysis. Prognosis remains relatively guarded, we'll continue to monitor the patient in the ICU for the next 24 hours Critical care time is over 30 minutes Time with Patient: Greater than 30
[2021-12-14 11:35] LABS: Glucose,Whole Blood 118 mg/dL (70-110)
--- NOTE | 2021-12-14 12:10 | P.PN ---
Subjective Progress Note Date: 12/12/21 Patient was seen for a follow-up. Patient currently on propofol 50 g per program per minute. Per nursing report, with sedation holiday, patient was squeezing hands, wiggling toes, opening eyes. She was following commands. Like squeezing hands, wiggling toes and was opening eyes just for a brief moment. She was able to hear. After patient was placed on CPAP, shortly after patient started having shallow breathing and was tachypneic in the 40s, therefore was placed back on sedation with propofol. Objective - Vital Signs Vital signs: Vital Signs Temp 98.7 F 12/12/21 12:00 Pulse 102 H 12/12/21 18:00 Resp 25 H 12/12/21 18:00 BP 116/55 12/12/21 18:00 Pulse Ox 94 L 12/12/21 18:00 FiO2 35 12/12/21 16:00 Intake & Output 12/11/21 12/12/21 12/12/21 18:59 06:59 18:59 Intake Total 2981.145 5872.715 Output Total 305 0 Balance 400.649 6077.715 Weight 63.503 kg 63.5 kg 63.5 kg Intake: IV 460 1060 Dextrose 5% in Water 1, 400 000 ml @ 50 mls/hr IV . Q23H [facility] with Sodium Bicarb (1 Meq/ml) 150 ml Rx#:[id number] Piperacillin-Tazobactam 3 100 100 .375 gm In Sodium Chloride 0.9% 100 ml @ 25 mls/hr IVPB Q12HR [facility] Rx #:[id number] Sodium Chloride 0.9% 1, 360 560 000 ml @ 50 mls/hr IV . Q20H [facility] Rx#:[id number] Intake, IV Titration 155.712 94.715 Amount propofoL 1,000 mg In 155.712 94.715 Empty Bag 1 bag @ 15 MCG/ KG/MIN 5.715 mls/hr IV . [id number] [facility] Rx#:[id number] Hemodialysis 500 Output: Urine 5 0 Hemodialysis 300 Other: Voiding Method Indwelling Catheter Indwelling Catheter Indwelling Catheter # Voids 0 ABP, PAP, CO, CI - Last Documented Arterial Blood Pressure 117/54 - Exam Patient at present is sedated. Patient does respond to painful stimuli (nailbed pressure) with facial grimacing. Patient's pupils are equal, round and reacting. Oculocephalics are absent. Corneals present. Patient does have a gag and cough. She does breathe over the ventilator. She does move extremities with sedation holiday. - Labs CBC & Chem 7: 12/14/21 06:12 12/14/21 06:12 Labs: Abnormal Lab Results - Last 24 Hours (Table) 12/11/21 12/11/21 12/11/21 Range/Units 18:27 18:41 18:41 RBC (3.80-5.40) m/uL Hgb (11.4-16.0) gm/dL Hct (34.0-46.0) % MCV (80.0-100.0) fL Lymphocytes # (1.0-4.8) k/uL ABG pH (7.35-7.45) ABG pO2 (83-108) mmHg ABG HCO3 (21-25) mmol/L ABG Total CO2 (19-24) mmol/L ABG O2 Saturation (94-97) % Carbon Dioxide (22-30) mmol/L BUN (7-17) mg/dL Creatinine (0.52-1.04) mg/dL Glucose (74-99) mg/dL POC Glucose (mg/dL) 136 H (70-110) mg/dL Plasma Lactic Acid Javier 2.9 H* (0.7-2.0) mmol/L Calcium (8.4-10.2) mg/dL Troponin I 0.168 H* (0.000-0.034) ng/mL 12/11/21 12/11/21 12/11/21 Range/Units 18:41 18:41 19:29 RBC 3.42 L (3.80-5.40) m/uL Hgb 11.2 L (11.4-16.0) gm/dL Hct (34.0-46.0) % MCV 104.2 H (80.0-100.0) fL Lymphocytes # (1.0-4.8) k/uL ABG pH 7.27 L (7.35-7.45) ABG pO2 >400 H (83-108) mmHg ABG HCO3 19 L (21-25) mmol/L ABG Total CO2 (19-24) mmol/L ABG O2 Saturation 100.0 H (94-97) % Carbon Dioxide 15 L (22-30) mmol/L BUN 54 H (7-17) mg/dL Creatinine 5.61 H (0.52-1.04) mg/dL Glucose 126 H (74-99) mg/dL POC Glucose (mg/dL) (70-110) mg/dL Plasma Lactic Acid Javier (0.7-2.0) mmol/L Calcium 8.1 L (8.4-10.2) mg/dL Troponin I (0.000-0.034) ng/mL 12/12/21 12/12/21 12/12/21 Range/Units 03:31 03:31 05:35 RBC 3.12 L (3.80-5.40) m/uL Hgb 10.3 L (11.4-16.0) gm/dL Hct 32.2 L (34.0-46.0) % MCV 103.3 H (80.0-100.0) fL Lymphocytes # 0.6 L (1.0-4.8) k/uL ABG pH 7.28 L (7.35-7.45) ABG pO2 135 H (83-108) mmHg ABG HCO3 17 L (21-25) mmol/L ABG Total CO2 18 L (19-24) mmol/L ABG O2 Saturation 98.9 H (94-97) % Carbon Dioxide 15 L (22-30) mmol/L BUN 64 H (7-17) mg/dL Creatinine 6.63 H (0.52-1.04) mg/dL Glucose 165 H (74-99) mg/dL POC Glucose (mg/dL) (70-110) mg/dL Plasma Lactic Acid Javier (0.7-2.0) mmol/L Calcium 7.7 L (8.4-10.2) mg/dL Troponin I (0.000-0.034) ng/mL 12/12/21 12/12/21 Range/Units 11:59 17:12 RBC (3.80-5.40) m/uL Hgb (11.4-16.0) gm/dL Hct (34.0-46.0) % MCV (80.0-100.0) fL Lymphocytes # (1.0-4.8) k/uL ABG pH (7.35-7.45) ABG pO2 (83-108) mmHg ABG HCO3 (21-25) mmol/L ABG Total CO2 (19-24) mmol/L ABG O2 Saturation (94-97) % Carbon Dioxide (22-30) mmol/L BUN (7-17) mg/dL Creatinine (0.52-1.04) mg/dL Glucose (74-99) mg/dL POC Glucose (mg/dL) 165 H 192 H (70-110) mg/dL Plasma Lactic Acid Javier (0.7-2.0) mmol/L Calcium (8.4-10.2) mg/dL Troponin I (0.000-0.034) ng/mL Microbiology - Last 24 Hours (Table) 12/11/21 23:50 Gram Stain - Preliminary Sputum Sputum Culture - Preliminary 12/10/21 10:35 Blood Culture - Preliminary Blood No Growth after 48 hours 12/10/21 10:59 Blood Culture - Preliminary Blood No Growth after 48 hours 12/10/21 10:01 Urine Culture - Final Urine,Voided Escherichia coli Assessment and Plan Assessment: * Altered mental status, probably due to toxic metabolic encephalopathy. * Seizure-like activity, followed by agonal breathing. Seizure possibly due to TME versus related to rapid osmotic shift from initiation of hemodialysis. * Acute kidney injury likely due to ATN. Patient on hemodialysis now. * Acute respiratory failure requiring intubation, on mechanical ventilation. * Possible aspiration pneumonia, on Zosyn. * CHF exacerbation * COPD * UTI * Lactic acidosis * Metabolic acidosis * Tobacco use Plan: * EEG was abnormal sleep EEG. The diffuse slowing, and periods of suppression suggest generalized cerebral dysfunction as can be seen with encephalopathy or medication effect. Clinical correlation is recommended. No epileptiform activity was seen. * Patient's examination shows no evidence of seizure activity. Exam is nonfocal. EEG showed no epileptiform activity. No indication for antiepileptic medication at this time. * Medical management as per IM, critical care and other specialties. * Patient currently on Zosyn. * Neurology will follow. Thank you for the consult.
--- NOTE | 2021-12-14 12:17 | P.PN ---
Subjective Progress Note Date: 12/13/21 12/13/2021: Patient was seen for a follow-up. Patient at present on propofol 40 mcg/kg/m. Patient was supposed to be extubated today, but after stopping propofol she was not fully waking up. Patient was placed on Precedex, patient woke up and falls back to sleep. She opens her eyes to calling name. She was placed back on sedation. Patient at present on Precedex 0.3 at this time. Poss ible extubation tomorrow. 12/12/2021: Patient was seen for a follow-up. Patient currently on propofol 50 g per program per minute. Per nursing report, with sedation holiday, patient was squeezing hands, wiggling toes, opening eyes. She was following commands. Like squeezing hands, wiggling toes and was opening eyes just for a brief moment. She was able to hear. After patient was placed on CPAP, shortly after patient started having shallow breathing and was tachypneic in the 40s, therefore was placed back on sedation with propofol. Objective - Vital Signs Vital signs: Vital Signs Temp 98.5 F 12/14/21 12:00 Pulse 84 12/14/21 12:00 Resp 27 H 12/14/21 12:00 BP 134/71 12/14/21 12:00 Pulse Ox 96 12/14/21 12:00 FiO2 35 12/14/21 08:00 Intake & Output 12/13/21 12/14/21 12/14/21 18:59 06:59 18:59 Intake Total 1689.806 940.504 474.311 Output Total 2450 0 0 Balance -760.194 940.504 474.311 Weight 62.6 kg Intake: IV 590 320 220 0.9 220 120 Dextrose 5% in Water 1, 200 000 ml @ 50 mls/hr IV . Q23H [facility] with Sodium Bicarb (1 Meq/ml) 150 ml Rx#:[id number] Piperacillin-Tazobactam 3 100 100 100 .375 gm In Sodium Chloride 0.9% 100 ml @ 25 mls/hr IVPB Q12HR [facility] Rx #:[id number] Sodium Chloride 0.9% 1, 290 000 ml @ 50 mls/hr IV . Q20H [facility] Rx#:[id number] Intake, IV Titration 79.806 90.504 14.311 Amount Dexmedetomidine/0.9% NaCl 8.492 90.504 14.311 (Pmx) 400 mcg In Empty Bag 1 bag @ 0.2 MCG/KG/HR 3.145 mls/hr IV .Q24H [facility] Rx#:[id number] propofoL 1,000 mg In 71.314 Empty Bag 1 bag @ 15 MCG/ KG/MIN 5.715 mls/hr IV . [id number] [facility] Rx#:[id number] Tube Feeding 320 440 240 Hemodialysis 700 Other 90 Output: Urine 20 0 0 Hemodialysis 2430 Other: Voiding Method Indwelling Catheter Indwelling Catheter Indwelling Catheter ABP, PAP, CO, CI - Last Documented Arterial Blood Pressure 117/54 - Exam Patient at present is sedated. Patient is intubated on mechanical ventilation. Patient opens her eyes briefly to calling her name. Her pupils are equal, round and reacting. Extraocular muscles are intact. She wiggles her feet on command. 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 Reflexes are symmetric plantars downgoing. No peripheral edema. Abdomen is soft. Chest has some crackles. No seizure- like activity noted. Tone is equal bilaterally. - Labs CBC & Chem 7: 12/14/21 06:12 12/14/21 06:12 Labs: Abnormal Lab Results - Last 24 Hours (Table) 12/13/21 12/13/21 12/14/21 Range/Units 17:50 23:30 05:37 RBC (3.80-5.40) m/uL Hgb (11.4-16.0) gm/dL Hct (34.0-46.0) % MCV (80.0-100.0) fL Sodium (137-145) mmol/L BUN (7-17) mg/dL Creatinine (0.52-1.04) mg/dL Glucose (74-99) mg/dL POC Glucose (mg/dL) 140 H 227 H 230 H (70-110) mg/dL Calcium (8.4-10.2) mg/dL 12/14/21 12/14/21 12/14/21 Range/Units 06:12 06:12 11:33 RBC 2.47 L (3.80-5.40) m/uL Hgb 7.9 L (11.4-16.0) gm/dL Hct 25.3 L (34.0-46.0) % MCV 102.4 H (80.0-100.0) fL Sodium 136 L (137-145) mmol/L BUN 56 H (7-17) mg/dL Creatinine 3.65 H (0.52-1.04) mg/dL Glucose 217 H (74-99) mg/dL POC Glucose (mg/dL) 118 H (70-110) mg/dL Calcium 7.1 L (8.4-10.2) mg/dL Microbiology - Last 24 Hours (Table) 12/11/21 23:50 Gram Stain - Final Sputum Sputum Culture - Final 12/10/21 10:59 Blood Culture - Preliminary Blood No Growth after 72 hours 12/10/21 10:35 Blood Culture - Preliminary Blood No Growth after 72 hours Assessment and Plan Assessment: * Altered mental status, probably due to toxic metabolic encephalopathy. * Seizure-like activity, followed by agonal breathing. Seizure possibly due to TME versus related to rapid osmotic shift from initiation of hemodialysis. * Acute kidney injury likely due to ATN. Patient on hemodialysis now. * Acute respiratory failure requiring intubation, on mechanical ventilation. * Possible aspiration pneumonia, on Zosyn. * CHF exacerbation * COPD * UTI * Lactic acidosis * Metabolic acidosis * Tobacco use Plan: * EEG 12/12/2021 was abnormal sleep EEG. The diffuse slowing, and periods of suppression suggest generalized cerebral dysfunction as can be seen with encephalopathy or medication effect. Clinical correlation is recommended. No epileptiform activity was seen. * Patient's examination shows no evidence of seizure activity. Exam is nonfocal. EEG showed no epileptiform activity. No indication for antiepileptic medication at this time. * Medical management as per IM, critical care and other specialties. * CT renal protocol showed severe left hydronephrosis with cortical thinning, s uggestive of chronic UPG obstruction. * Patient currently on Zosyn. Critical team following. Notes reviewed. Chest x-ray showing left basilar airspace opacities and posterior left pleural effusion. * Neurology will follow clinically.
--- NOTE | 2021-12-14 13:38 | P.PN ---
Subjective Progress Note Date: 12/14/21 This is a 71-year-old female who was recently admitted with change in mental status and increased hypoxia and shortness of breath and being closely monitored. Multiple medical consultations following and patient had worsening hypoxia and abnormal ABG and brought to the ICU and patient was ultimately pl aced on mechanical vent. Patient is maintained on IV Zosyn and also emergently received a temporary dialysis catheter and is undergoing hemodialysis with nephrology following closely. Patient's kidney functions worsened and emergently started on dialysis. Patient is on mechanical vent with FiO2 of 35% with PEEP of 5. Patient was initiated on emergent dialysis last night and receiving again today. 12/13/2021 Patient is seen and evaluated in follow-up in the ICU with multiple medical consultations following. Patient continues on mechanical vent under sedation FiO2 is 35% with a PEEP of 5. Chest x-ray today shows chronic emphysematous changes with small to tiny bilateral pleural effusions and left basilar acute infiltrate and/or atelectasis noted. Patient also underwent EEG and was a bnormal with periods of suppression suggesting generalized cerebral dysfunction that can be seen in encephalopathy or medication induced. No epileptiform discharges noted. Patient continues on hemodialysis, sodium bicarb drip with nephrology following closely. Patient also continues on DuoNeb treatments along with IV steroids and will continue. Patient is on antibiotics and sputum cultures pending and preliminary cultures of blood thus far negative. Urine culture showed E. coli. 12/14/2021 Patient is seen in follow-up this morning continues on mechanical vent in the ICU with an FiO2 of 35% and PEEP is 5. Multiple medical consultations following including nephrology and patient has been receiving hemodialysis daily. Patient is continued on DuoNeb treatments along with subcutaneous Lovenox, IV steroids high-dose, Zosyn, and propofol is currently off. Attempting sedation holidays with possibly weaning. Rest x-ray this morning shows no change from one day prior with left basilar airspace opacification and possible left pleural effusion. Urology has been consulted for nephrosclerosis with history of left renal atrophy with severe hydrocele is noted of the left kidney and CT abdomen pelvis without contrast is ordered. Recommending to continue with indwelling Santos catheter. Cardiology also consulted for the elevated troponins recommend to continue with current cardiac medications and continue telemetry monitoring. The pressures are soft although not requiring pressor support at this time. Blood cultures have been negative and patient's urine culture was E. coli gram stained sputum culture currently pending at this time. Per nursing staff plan is for extubation possibly today. Review of systems: Unable to obtain as patient is on vent and sedated All medications have been reviewed Active Medications Acetaminophen (Acetaminophen Tab 325 Mg Tab) 650 mg PO Q6HR PRN PRN Reason: Mild Pain or Fever > 100.5 Last Admin: 12/13/21 00:14 Dose: 650 mg Albuterol/Ipratropium (Ipratropium-Albuterol 3 Ml Neb) 3 ml INHALATION RT-QID S Last Admin: 12/14/21 08:03 Dose: 3 ml Albuterol/Ipratropium (Ipratropium-Albuterol 3 Ml Neb) 3 ml INHALATION RT-Q4H PRN PRN Reason: Shortness Of Breath Or Wheezing Last Admin: 12/13/21 23:52 Dose: 3 ml Budesonide (Budesonide 1 Mg/2 Ml Nebu) 1 mg INHALATION RT-BID [facility] Last Admin: 12/14/21 08:03 Dose: 1 mg Chlorhexidine Gluconate (Chlorhexidine Gluconate 15 Ml Cup) 15 ml MUCOUS MEM BID [facility] Last Admin: 12/14/21 07:50 Dose: 15 ml Dextrose/Water (Dextrose 50% Syringe 50 Ml) 25 ml IVP PER PROTOCOL PRN; Protocol PRN Reason: Hypoglycemia Dextrose/Water (Dextrose 50% Syringe 50 Ml) 50 ml IVP PER PROTOCOL PRN; Protocol PRN Reason: Hypoglycemia Enoxaparin Sodium (Enoxaparin 30 Mg/0.3 Ml Syringe) 30 mg SQ DAILY [facility] Last Admin: 12/14/21 07:50 Dose: 30 mg Formoterol Fumarate (Formoterol Fumarate 20 Mcg/2 Ml Nebu) 20 mcg INHALATION RT-BID [facility]IDA Last Admin: 12/14/21 08:03 Dose: 20 mcg Piperacillin Sod/Tazobactam (Sod 3.375 gm/ Sodium Chloride) 100 mls @ 25 mls/hr IVPB Q12HR [facility]; Protocol Last Admin: 12/14/21 07:49 Dose: 25 mls/hr Propofol 1,000 mg/ IV Solution 100 mls @ 5.715 mls/hr IV .[id number] [facility]; Protocol Last Titration: 12/13/21 11:20 Dose: 0 mcg/kg/min, 0 mls/hr Dexmedetomidine HCl 400 mcg/ (IV Solution) 100 mls @ 3.145 mls/hr IV .Q24H [facility]; Protocol Last Titration: 12/14/21 09:03 Dose: 0 mcg/kg/hr, 0 mls/hr Insulin Aspart (Insulin Aspart (Novolog) 100 Unit/Ml Vial) 0 unit SQ Q6H [facility]; Protocol Last Admin: 12/14/21 05:56 Dose: 2 unit Methylprednisolone Sodium Succinate (Methylprednisolone Sod Succi 125 Mg/2 Ml Vial) 60 mg IV Q6HR [facility] Last Admin: 12/14/21 05:57 Dose: 60 mg Naloxone HCl (Naloxone 0.4 Mg/Ml 1 Ml Vial) 0.2 mg IV Q2M PRN PRN Reason: Opioid Reversal Pantoprazole Sodium (Pantoprazole 40 Mg/10 Ml Vial) 40 mg IV DAILY [facility] Last Admin: 12/14/21 07:49 Dose: 40 mg PHYSICAL EXAMINATION: GENERAL: The patient is currently just been extubated and lethargic receiving hemodialysis on a breathing treatment. Elderly female HEENT: Pupils are round and equally reacting to light. EOMI. no scleral icterus. No conjunctival pallor. Normocephalic, atraumatic. No pharyngeal erythema. No thyromegaly. 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 ABDOMEN: soft. Nontender on exam. non-distended, normoactive bowel sounds. No palpable organomegaly. MUSCULOSKELETAL: No joint swelling or deformity. EXTREMITIES: No cyanosis, clubbing, or pedal edema. NEUROLOGICAL: Gross neurological examination did not reveal any focal deficits. Lethargic. Diffuse weakness SKIN: No rashes. Assessment: Change in mental status, acute metabolic encephalopathy Acute on chronic hypoxic respiratory failure requiring mechanical ventilation on 12/11/2021, extubated on 12/14/2021 Congestive heart failure and chronic obstructive pulmonary disease, acute exacerbation Acute renal failure requiring emergent dialysis catheter placement and hemod ialysis started last night Troponin indeterminate at 0.119 Degenerative joint disease History of DVT Gastroesophageal reflux disease Osteoarthritis Chronic bullous emphysema history Former smoker of 40+ years GI prophylaxis DVT prophylaxis Full code Plan: Recommend to continue with current medications and management and was monitoring in the ICU with multiple medical consultations following. Patient was just extubated successfully and currently receiving a breathing treatment. Patient is also on hemodialysis. Patient is receiving IV antibiotics and will continue along with IV steroids and DuoNeb treatments. Urology also now following an abdomen CT pelvis has been ordered and pending. Kidney function slowly improving current creatinine is down to 3.65 and tolerating hemodialysis well. Hemoglobin is 7.9. Recommend continue with current medication regimen and follow-up chest x-ray along with labs in the a.m. and will have physical therapy work with the patient once more stable. Due to multiple complex medical issues, prognosis is extremely guarded. The impression and plan of care has been dictated by Carmen Yeboah, nurse practitioner as directed. Dr. Get MD I have performed a history and examination and MDM of this patient, discussed the same with the dictator, and agree with the dictator's assessment and plan as written ,documented as a scribe. Based on total visit time, I have performed more than 50% of the visit. Any additional findings or plans will be noted. Objective - Vital Signs Vital signs: Vital Signs Temp 98.2 F 12/14/21 08:00 Pulse 74 12/14/21 08:25 Resp 22 12/14/21 08:00 BP 109/51 12/14/21 08:00 Pulse Ox 95 12/14/21 08:00 FiO2 35 12/14/21 08:00 Intake & Output 12/13/21 12/14/21 12/14/21 18:59 06:59 18:59 Intake Total 1689.806 940.504 280 Output Total 2450 0 0 Balance -760.194 940.504 280 Weight 62.6 kg Intake: IV 590 320 160 0.9 220 60 Dextrose 5% in Water 1, 200 000 ml @ 50 mls/hr IV . Q23H [facility] with Sodium Bicarb (1 Meq/ml) 150 ml Rx#:[id number] Piperacillin-Tazobactam 3 100 100 100 .375 gm In Sodium Chloride 0.9% 100 ml @ 25 mls/hr IVPB Q12HR [facility] Rx #:[id number] Sodium Chloride 0.9% 1, 290 000 ml @ 50 mls/hr IV . Q20H [facility] Rx#:[id number] Intake, IV Titration 79.806 90.504 Amount Dexmedetomidine/0.9% NaCl 8.492 90.504 (Pmx) 400 mcg In Empty Bag 1 bag @ 0.2 MCG/KG/HR 3.145 mls/hr IV .Q24H [facility] Rx#:[id number] propofoL 1,000 mg In 71.314 Empty Bag 1 bag @ 15 MCG/ KG/MIN 5.715 mls/hr IV . [id number] [facility] Rx#:[id number] Tube Feeding 320 440 120 Hemodialysis 700 Other 90 Output: Urine 20 0 0 Hemodialysis 2430 Other: Voiding Method Indwelling Catheter Indwelling Catheter Indwelling Catheter ABP, PAP, CO, CI - Last Documented Arterial Blood Pressure 117/54 - Labs CBC & Chem 7: 12/14/21 06:12 12/14/21 06:12 Labs: Abnormal Lab Results - Last 24 Hours (Table) 12/13/21 12/13/21 12/13/21 Range/Units 11:52 17:50 23:30 RBC (3.80-5.40) m/uL Hgb (11.4-16.0) gm/dL Hct (34.0-46.0) % MCV (80.0-100.0) fL Sodium (137-145) mmol/L BUN (7-17) mg/dL Creatinine (0.52-1.04) mg/dL Glucose (74-99) mg/dL POC Glucose (mg/dL) 173 H 140 H 227 H (70-110) mg/dL Calcium (8.4-10.2) mg/dL 12/14/21 12/14/21 12/14/21 Range/Units 05:37 06:12 06:12 RBC 2.47 L (3.80-5.40) m/uL Hgb 7.9 L (11.4-16.0) gm/dL Hct 25.3 L (34.0-46.0) % MCV 102.4 H (80.0-100.0) fL Sodium 136 L (137-145) mmol/L BUN 56 H (7-17) mg/dL Creatinine 3.65 H (0.52-1.04) mg/dL Glucose 217 H (74-99) mg/dL POC Glucose (mg/dL) 230 H (70-110) mg/dL Calcium 7.1 L (8.4-10.2) mg/dL Microbiology - Last 24 Hours (Table) 12/10/21 10:59 Blood Culture - Preliminary Blood No Growth after 72 hours 12/10/21 10:35 Blood Culture - Preliminary Blood No Growth after 72 hours
[2021-12-14] MEDS: methylPREDNISolone SOD SUCCI 40 MG/ML 1 ML VIAL IV SCH ×2 (15:17→23:41)
[2021-12-14] MEDS: DARBEPOETIN ALFA 60 MCG/0.3 ML SYRINGE SQ SCH (15:45)
[2021-12-14 17:20] LABS: Glucose,Whole Blood 167 mg/dL (70-110)
--- NOTE | 2021-12-14 17:56 | P.PN ---
Subjective Patient is still anuric, CT yesterday showed left sided hydronephrosis, but the left kidney parenchyma showed significant atrophy. Objective - Vital Signs Vital signs: Vital Signs Temp 98.5 F 12/14/21 12:00 Pulse 84 12/14/21 12:00 Resp 27 H 12/14/21 12:00 BP 134/71 12/14/21 12:00 Pulse Ox 96 12/14/21 12:00 FiO2 35 12/14/21 08:00 Intake & Output 12/13/21 12/14/21 12/14/21 18:59 06:59 18:59 Intake Total 1689.806 940.504 474.311 Output Total 2450 0 0 Balance -760.194 940.504 474.311 Weight 62.6 kg 62.6 kg Intake: IV 590 320 220 0.9 220 120 Dextrose 5% in Water 1, 200 000 ml @ 50 mls/hr IV . Q23H [facility] with Sodium Bicarb (1 Meq/ml) 150 ml Rx#:[id number] Piperacillin-Tazobactam 3 100 100 100 .375 gm In Sodium Chloride 0.9% 100 ml @ 25 mls/hr IVPB Q12HR [facility] Rx #:[id number] Sodium Chloride 0.9% 1, 290 000 ml @ 50 mls/hr IV . Q20H [facility] Rx#:[id number] Intake, IV Titration 79.806 90.504 14.311 Amount Dexmedetomidine/0.9% NaCl 8.492 90.504 14.311 (Pmx) 400 mcg In Empty Bag 1 bag @ 0.2 MCG/KG/HR 3.145 mls/hr IV .Q24H [facility] Rx#:[id number] propofoL 1,000 mg In 71.314 Empty Bag 1 bag @ 15 MCG/ KG/MIN 5.715 mls/hr IV . [id number] [facility] Rx#:[id number] Tube Feeding 320 440 240 Hemodialysis 700 Other 90 Output: Urine 20 0 0 Hemodialysis 2430 Other: Voiding Method Indwelling Catheter Indwelling Catheter Indwelling Catheter ABP, PAP, CO, CI - Last Documented Arterial Blood Pressure 117/54 - Constitutional General appearance: Present: no acute distress - Gastrointestinal General gastrointestinal: Present: soft. Absent: distended, tenderness - Psychiatric Psychiatric: Present: A&O x's 3 - Labs CBC & Chem 7: 12/14/21 06:12 12/14/21 06:12 Labs: Abnormal Lab Results - Last 24 Hours (Table) 12/13/21 12/13/21 12/14/21 Range/Units 17:50 23:30 05:37 RBC (3.80-5.40) m/uL Hgb (11.4-16.0) gm/dL Hct (34.0-46.0) % MCV (80.0-100.0) fL Sodium (137-145) mmol/L BUN (7-17) mg/dL Creatinine (0.52-1.04) mg/dL Glucose (74-99) mg/dL POC Glucose (mg/dL) 140 H 227 H 230 H (70-110) mg/dL Calcium (8.4-10.2) mg/dL 12/14/21 12/14/21 12/14/21 Range/Units 06:12 06:12 11:33 RBC 2.47 L (3.80-5.40) m/uL Hgb 7.9 L (11.4-16.0) gm/dL Hct 25.3 L (34.0-46.0) % MCV 102.4 H (80.0-100.0) fL Sodium 136 L (137-145) mmol/L BUN 56 H (7-17) mg/dL Creatinine 3.65 H (0.52-1.04) mg/dL Glucose 217 H (74-99) mg/dL POC Glucose (mg/dL) 118 H (70-110) mg/dL Calcium 7.1 L (8.4-10.2) mg/dL Microbiology - Last 24 Hours (Table) 12/10/21 10:35 Blood Culture - Preliminary Blood No Growth after 96 hours 12/10/21 10:59 Blood Culture - Preliminary Blood No Growth after 96 hours 12/11/21 23:50 Gram Stain - Final Sputum Sputum Culture - Final Assessment and Plan (1) Hydronephrosis determined by ultrasound Current Visit: Yes Status: Acute Code(s): N13.30 - UNSPECIFIED HYDRONEPHROSIS SNOMED Code(s): 71835933 Plan: 71 yo female with MATTHIEU, urology is consulted for left sided hydronpehrosis, I reviewed the images of the CT scan done yesterday, the left kidney is fairly atrophic, there is significant hydronephrosis but given the degree of parenchymal atrophy of the left kidney is not contributing to patient's renal function, she will not benefit from a ureteral stent as it this is a nonfunctio b[place] to minimally functioning kidney. from urology standpoint no further intervention, as the cause of her acute kidney injury is nonobstructive in nature
[2021-12-14 20:18] LABS: Glucose,Whole Blood 121 mg/dL (70-110)
[2021-12-14] MEDS: APIXABAN 5 MG TAB PO SCH (20:50)
[2021-12-15 06:14] LABS: HCT 26.1 % (34.0-46.0); HGB 8.3 gm/dL (11.4-16.0); Hypochromasia Moderate; MCH 32.6 pg (25.0-35.0); MCHC 31.8 g/dL (31.0-37.0); MCV 102.6 fL (80.0-100.0); Macrocytosis Slight; Mean Platelet Volume 8.8; Platelet Count 237 k/uL (150-450); RBC 2.54 m/uL (3.80-5.40); RDW 14.4 % (11.5-15.5); WBC 5.4 k/uL (3.8-10.6)
[2021-12-15 06:27] LABS: Calcium 7.5 mg/dL (8.4-10.2); Potassium 4.9 mmol/L (3.5-5.1)
[2021-12-15 06:44] LABS: Glucose,Whole Blood 147 mg/dL (70-110)
[2021-12-15] MEDS: INSULIN ASPART (NovoLOG) 100 UNIT/ML VIAL SQ SCH ×4 (06:48→20:33)
[2021-12-15] MEDS: BUDESONIDE 1 MG/2 ML NEBU INHALATION SCH ×2 (07:12→19:50)
[2021-12-15] MEDS: FORMOTEROL FUMARATE 20 MCG/2 ML NEBU INHALATION SCH ×2 (07:12→19:50)
[2021-12-15] MEDS: IPRATROPIUM-ALBUTEROL 3 ML NEB INHALATION SCH ×4 (07:12→19:50)
[2021-12-15] MEDS: PIPERACILLIN-TAZOBACTAM 3.375 GM in SODIUM CHLORIDE 0.9% 100 ML IVPB SCH ×2 (07:42→20:46)
[2021-12-15] MEDS: APIXABAN 5 MG TAB PO SCH ×2 (07:42→20:46)
[2021-12-15] MEDS: methylPREDNISolone SOD SUCCI 40 MG/ML 1 ML VIAL IV SCH ×3 (07:43→23:46)
[2021-12-15] MEDS: DEXMEDETOMIDINE/0.9% NACL(PMX) 400 MCG in EMPTY BAG 1 BAG IV SCH (07:43)
[2021-12-15] MEDS: PANTOPRAZOLE 40 MG/10 ML VIAL IV SCH (07:43)
--- NOTE | 2021-12-15 08:28 | XR ---
EXAMINATION TYPE: XR chest 1V portable DATE OF EXAM: 12/15/2021 CLINICAL HISTORY: Difficulty breathing progress study. TECHNIQUE: Single AP portable semiupright view of the chest is obtained. COMPARISON: Chest x-ray from one day earlier and older studies. FINDINGS: Interval extubation with removal of endotracheal and orogastric tubes. Background chronic emphysematous change with persistent elevated left hemidiaphragm and left basilar opacity. New right basilar opacity. Cardiac silhouette size stable and upper limits of normal. Osseou s structures remain demineralized. IMPRESSION: Interval extubation. Background Chronic emphysematous change with left basilar acute infi ltrate and/or atelectasis redemonstrated and stable. New right basilar acute infiltrate and/or atelec tasis noted. Progress study advised.
[2021-12-15] MEDS ORDERED: FUROSEMIDE 10 MG/ML 10 ML VIAL IV STA (09:29)
--- NOTE | 2021-12-15 09:31 | P.PN ---
Subjective Patient is seen in follow-up for acute kidney injury. Oliguric. Hemodialysis dependent. Oral intake is good. Blood pressure stable. Denies chest pain or shortness of breath. Vital signs are stable. General: Awake. No acute distress. HEENT: Head exam is unremarkable. LUNGS: Breath sounds decreased. HEART: Rate and Rhythm are regular. ABDOMEN: Soft, no distention. EXTREMITITES: Trace edema. Objective - Vital Signs Vital signs: Vital Signs Temp 98.5 F 12/15/21 08:00 Pulse 81 12/15/21 08:00 Resp 24 12/15/21 08:00 BP 135/67 12/15/21 08:00 Pulse Ox 94 L 12/15/21 08:00 FiO2 35 12/14/21 08:00 Intake & Output 12/14/21 12/15/21 12/15/21 18:59 06:59 18:59 Intake Total 424.311 210 120 Output Total 5 0 0 Balance 419.311 210 120 Weight 62.6 kg 62.4 kg Intake: IV 290 210 20 0.9 190 110 20 Piperacillin-Tazobactam 3 100 100 .375 gm In Sodium Chloride 0.9% 100 ml @ 25 mls/hr IVPB Q12HR [facility] Rx #:[id number] Intake, IV Titration 14.311 100 Amount Dexmedetomidine/0.9% NaCl 14.311 (Pmx) 400 mcg In Empty Bag 1 bag @ 0.2 MCG/KG/HR 3.145 mls/hr IV .Q24H [facility] Rx#:[id number] Piperacillin-Tazobactam 3 100 .375 gm In Sodium Chloride 0.9% 100 ml @ 25 mls/hr IVPB Q12HR [facility] Rx #:[id number] Tube Feeding 120 Output: Urine 5 0 0 Other: Voiding Method Indwelling Catheter Indwelling Catheter Indwelling Catheter # Bowel Movements 1 1 ABP, PAP, CO, CI - Last Documented Arterial Blood Pressure 117/54 - Labs CBC & Chem 7: 12/15/21 05:21 12/15/21 05:21 Labs: Abnormal Lab Results - Last 24 Hours (Table) 12/14/21 12/14/21 12/14/21 Range/Units 11:33 17:18 20:17 RBC (3.80-5.40) m/uL Hgb (11.4-16.0) gm/dL Hct (34.0-46.0) % MCV (80.0-100.0) fL Sodium (137-145) mmol/L BUN (7-17) mg/dL Creatinine (0.52-1.04) mg/dL Glucose (74-99) mg/dL POC Glucose (mg/dL) 118 H 167 H 121 H (70-110) mg/dL Calcium (8.4-10.2) mg/dL 12/15/21 12/15/21 12/15/21 Range/Units 05:21 05:21 06:42 RBC 2.54 L (3.80-5.40) m/uL Hgb 8.3 L (11.4-16.0) gm/dL Hct 26.1 L (34.0-46.0) % MCV 102.6 H (80.0-100.0) fL Sodium 135 L (137-145) mmol/L BUN 61 H (7-17) mg/dL Creatinine 3.34 H (0.52-1.04) mg/dL Glucose 152 H (74-99) mg/dL POC Glucose (mg/dL) 147 H (70-110) mg/dL Calcium 7.5 L (8.4-10.2) mg/dL Microbiology - Last 24 Hours (Table) 12/10/21 10:35 Blood Culture - Preliminary Blood No Growth after 96 hours 12/10/21 10:59 Blood Culture - Preliminary Blood No Growth after 96 hours 12/11/21 23:50 Gram Stain - Final Sputum Sputum Culture - Final Assessment and Plan Plan: Assessment: 1. Acute kidney injury secondary to ATN secondary to septic shock. Oliguric. Started on hemodialysis 12/21/2021. Baseline creatinine 1-1.3 from August and September 2021. 2. Septic shock secondary to E. coli UTI and aspiration pneumonia on antibiotics. 3. Left hydronephrosis. Appears to be chronic with atrophic left kidney. No interventions planned. 4. Chronic kidney disease stage IIIa secondary to nephrosclerosis/obx uropathy with solitary functioning kidney. Baseline creatinine 1-1.3. 5. Anemia of chronic kidney disease. On Aranesp. Rule out iron deficiency. 6. Metabolic acidosis secondary to acute kidney injury. Improved postdialysis. Plan: Hemodialysis today. Check iron studies. Lasix 80 mg IV once today. Check phosphorus level. Continue to monitor for renal recovery. Currently has femoral dialysis catheter. If no improvement in urine output in the next 2-3 days, will need pcath.
--- NOTE | 2021-12-15 10:35 | P.PN ---
Subjective Progress Note Date: 12/14/21 12/14/2021: Patient was seen for a follow-up. Patient was extubated earlier today at 10 AM. Patient is fully alert and awake. Denies any headache. She is moving arms and legs normally. She states that she is feeling better. Patient still coughing. However mentation has remarkably improved. No further seizure type spells noted. 12/13/2021: Patient was seen for a follow-up. Patient at present on propofol 40 mcg/kg/m. Patient was supposed to be extubated today, but after stopping propofol she was not fully waking up. Patient was placed on Precedex, patient woke up and falls back to sleep. She opens her eyes to calling name. She was placed back on sedation. Patient at present on Precedex 0.3 at this time. Possible extubation tomorrow. 12/12/2021: Patient was seen for a follow-up. Patient currently on propofol 50 g per program per minute. Per nursing report, with sedation holiday, patient was squeezing hands, wiggling toes, opening eyes. She was following commands. Like squeezing hands, wiggling toes and was opening eyes just for a brief moment. She was able to hear. After patient was placed on CPAP, shortly after patient started having shallow breathing and was tachypneic in the 40s, therefore was placed back on sedation with propofol. Objective - Vital Signs Vital signs: Vital Signs Temp 98.5 F 12/14/21 16:00 Pulse 87 12/14/21 19:00 Resp 30 H 12/14/21 19:00 BP 130/65 12/14/21 19:00 Pulse Ox 94 L 12/14/21 19:00 FiO2 35 12/14/21 08:00 Intake & Output 12/14/21 12/14/21 12/15/21 06:59 18:59 06:59 Intake Total 940.504 424.311 Output Total 0 5 Balance 940.504 419.311 Weight 62.6 kg 62.6 kg Intake: IV 320 290 0.9 220 190 Piperacillin-Tazobactam 3 100 100 .375 gm In Sodium Chloride 0.9% 100 ml @ 25 mls/hr IVPB Q12HR [facility] Rx #:[id number] Intake, IV Titration 90.504 14.311 Amount Dexmedetomidine/0.9% NaCl 90.504 14.311 (Pmx) 400 mcg In Empty Bag 1 bag @ 0.2 MCG/KG/HR 3.145 mls/hr IV .Q24H [facility] Rx#:[id number] Tube Feeding 440 120 Other 90 Output: Urine 0 5 Other: Voiding Method Indwelling Catheter Indwelling Catheter # Bowel Movements 1 ABP, PAP, CO, CI - Last Documented Arterial Blood Pressure 117/54 - Exam Patient is fully alert and awake. She knows her name, and that she is in [facility] in [place]. She states the year is 192. She is still coughing frequently. Speech and language functions are normal. Speech is sli ghtly hoarse. On cranial nerve examination pupils are round and reacting to light, visual borges appears full and patient blinks to visual threat bilaterally. Extraocular muscles are intact. Face is symmetric and tongue protrudes the midline. On muscle strength testing, patient is tremulous for holding arms in front. No pronator drift. 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 Detailed testing deferred, as patient still feels tired from recent extubation. - Labs CBC & Chem 7: 12/15/21 05:21 12/15/21 05:21 Labs: Abnormal Lab Results - Last 24 Hours (Table) 12/13/21 12/14/21 12/14/21 Range/Units 23:30 05:37 06:12 RBC 2.47 L (3.80-5.40) m/uL Hgb 7.9 L (11.4-16.0) gm/dL Hct 25.3 L (34.0-46.0) % MCV 102.4 H (80.0-100.0) fL Sodium (137-145) mmol/L BUN (7-17) mg/dL Creatinine (0.52-1.04) mg/dL Glucose (74-99) mg/dL POC Glucose (mg/dL) 227 H 230 H (70-110) mg/dL Calcium (8.4-10.2) mg/dL 12/14/21 12/14/21 12/14/21 Range/Units 06:12 11:33 17:18 RBC (3.80-5.40) m/uL Hgb (11.4-16.0) gm/dL Hct (34.0-46.0) % MCV (80.0-100.0) fL Sodium 136 L (137-145) mmol/L BUN 56 H (7-17) mg/dL Creatinine 3.65 H (0.52-1.04) mg/dL Glucose 217 H (74-99) mg/dL POC Glucose (mg/dL) 118 H 167 H (70-110) mg/dL Calcium 7.1 L (8.4-10.2) mg/dL Microbiology - Last 24 Hours (Table) 12/10/21 10:35 Blood Culture - Preliminary Blood No Growth after 96 hours 12/10/21 10:59 Blood Culture - Preliminary Blood No Growth after 96 hours 12/11/21 23:50 Gram Stain - Final Sputum Sputum Culture - Final Assessment and Plan Assessment: * Altered mental status, probably due to toxic metabolic encephalopathy, now resolved. * Seizure-like activity, followed by agonal breathing. Seizure possibly due to TME versus related to rapid osmotic shift from initiation of hemodialysis. No further seizures reported. * Acute kidney injury likely due to ATN. Patient on hemodialysis now. * Acute respiratory failure requiring intubation, on mechanical ventilation. Status post extubation today 12/14/2021. * Possible aspiration pneumonia, on Zosyn. * CHF exacerbation * COPD * UTI * Lactic acidosis * Metabolic acidosis * Tobacco use Plan: * Patient has been extubated. Mentation is completely normal. No further seizure-like spells. * EEG 12/12/2021 was abnormal sleep EEG. The diffuse slowing, and periods of suppression suggest generalized cerebral dysfunction as can be seen with en cephalopathy or medication effect. Clinical correlation is recommended. No epileptiform activity was seen. * EEG showed no epileptiform activity. No indication for antiepileptic medication at this time. * Medical management as per IM, critical care and other specialties. * CT renal protocol showed severe left hydronephrosis with cortical thinning, suggestive of chronic UPG obstruction. * Patient currently on Zosyn. Critical team following. Notes reviewed. Chest x-ray showing left basilar airspace opacities and posterior left pleural effusion. * Patient's mentation is normal. No other neurological workup indicated. Neurologically clear.
--- NOTE | 2021-12-15 10:51 | P.PN ---
Subjective Progress Note Date: 12/15/21 Principal diagnosis: Altered mental status, possible seizure- This 71-year-old female patient who presented to the emergency room yesterday via EMS as her family had noted a 4 day history of generalized weakness and confusion. She has a known history of advanced chronic obstructive pulmonary disease with previous history of heavy tobacco dependence. Her FEV1 ranges between 30 and 35% of predicted. She is maintained on Dulera, Spiriva and albuterol in the outpatient setting. She has a nebulizer for treatments as well. She is also oxygen dependent on 2 L at home. She was discharged One month ago for an acute on chronic hypoxic respiratory failure secondary to COPD exacerbation without clear evidence of pneumonia. Chest x-ray showing bilateral interstitial edema on background bilateral chronic parenchymal changes. Most likely fluid overload state. Echocardiogram reveals preserved left ventricular systolic ejection fraction of 50-55%. Basilar inferior hypokinesis. No pericardial effusion. Computed tomography scan of the brain revealed no acute intracranial hemorrhage or midline shift. There is [id number] diffuse age-related cerebral atrophy and mild chronic small vessel ischemic changes noted. Follow-up chest x-ray continues show some interstitial changes. Evidence of emphysema. Urine culture is positive for gram-negative bacilli. Blood cultures are pending. White count 10.1. Hemoglobin 11.3. Sodium 139. Potassium 4.3. Bicarb 19. BUN 65. Creatinine 6.00. Pro calcitonin 6.11. Troponin leak at 0.11, 0.11, 0.12. ProBNP 15,600. Ocampo virus not detected. Influenza screen negative. She's been initiated on DuoNeb inhalations, Pulmicort inhalations. Anticoagulated with Eliquis. She is seen today in consultation on the selective care unit. She is currently resting in bed. Awake. Confused to time and place. Maintaining O2 saturation in the low 90s on 3 L/m per nasal cannula. Afebrile. Arterial blood gases on 28% FiO2 revealed a pO2 of 79, pCO2 38, pH 7.27. Nephrology is on regarding acute renal failure with a GFR of 7. Reevaluated today on 12/12/21, patient developed a sudden onset seizure yesterday and this was witnessed, this was noted shortly after dialysis was started. Patient never lost her pulse, however she was post ictal after the seizure, and her breathing was noted to be agonal. Hence the patient was intubated by CONTINUITY COORDINATOR, sent down for a CT of the head which was normal, transferred to ICU on mechanical ventilation. Patient is yet to be seen by neurology on consultation, she had EEG and CT of the head yesterday. Today she is on mechanical ventilation, assist control rate of 20, volume of 500 FiO2 30% and PEEP of 5. ABG showed a pO2 of 135 pCO2 36 pH of 7.28, hence the changes made included increase FiO2 up to 35% increase tidal volume down to 450 increase respiratory rate to 22 started patient on a bicarb drip at 50 mL per hour and cut down her IV fluid to 50 mL per hour. Considering her hemodynamic status, and considering the patient isn't requiring dialysis, a right radial arterial line was placed on emergent basis. Patient had no urine output yesterday, she is scheduled to undergo dialysis again today. CT of the brain was negative. Ultrasound of the kidneys showed left sided hydronephrosis. Right kidney seems to be intact. Patient is on propofol at 50 mcg/kg/m, she is not requiring any pressors. She is fully sedated, however I plan to cut down on the propofol, and hopefully assess mental status off propofol. This will be done later today after the patient is dialyzed, and after seen by neurology consider starting the patient on seizure medications, likely Keppra. EEG is yet to be evaluated by neurology. WBC count today is 7.5 hemoglobin is 10.3. Basic metabolic profile is normal renal profile showed a BUN of 64 creatinine 6.63. Patient is now on eliquis 5 mg by mouth twice a day Pulmicort [facility], Perforomist [facility], she is also on a bicarb drip at 50 mL per hour, insulin as per protocol, DuoNeb, Solu-Medrol 60 mg IV push every 6 hours, Protonix 40 mg IV push daily, Zosyn empirically, since her chest x-rays showing possible left lower lobe new infiltrate. Patient was noted to have evidence of possible UTI, and she also had elevated pro calcitonin level on admission. Reevaluated today on 12/13/21, patient remains in the ICU, intubated and mechanically ventilated. She is on assist control rate of 22, volume 450 FiO2 35% PEEP of 5. ABG showed a pO2 of 82 pCO2 44 pH of 7.47 hence no changes were made in her ventilator settings. Patient dropped her hemoglobin from 10.3-8.4, she has some minimal oozing around the dialysis catheter, and yesterday she was oozing around the arterial line which we have discontinued. Today I look back and found that the patient has been on eliquis for DVT from over 4 months ago. Hence I recommended stopping eliquis and we will check a venous Doppler make sure there is no active DVT in lower extremities. Patient will have hemodialysis again today. She is on propofol at 20 mcg/kg/m she is also on a bicarb drip at 50 mL/h, she is also receiving vital HP at 2 5 mL an hour chest x-ray is showing bibasilar airspace disease, possibility of aspiration pneumonia is very likely patient remains on Zosyn. EEG done yesterday showed no evidence of seizure focus, hence the patient was not placed on any antiseizure medication as recommended by neurology. WBC count today is 5.4 hemoglobin is 8.4, linsey ctrolytes are normal bicarb is 28 hence I will discontinue her bicarb. Her BUN is 54 creatinine 4.51. Urine culture on this admission showed E. coli, sensitive to Zosyn, patient remains on Zosyn. Blood cultures have been negative along, sputum cultures are nondiagnostic. Patient was reevaluated today on 12/14/21, patient remains in the ICU, intubated and mechanically ventilated. She is on assist control rate of 22, tidal volume is 450 FiO2 35% and PEEP of 5.Patient is on Precedex at 0.3 mcg/kg per hour. Patient is awake, arousable, follows simple instructions, and her labs were reviewed she had a relatively normal CBC WBC is 4.1 hemoglobin is 7.9. Basic metabolic profile is normal however her BUN is 56 creatinine 3.65, patient is scheduled to undergo hemodialysis again today. Chest x-ray showed mostly stable left basilar opacity consistent with infiltrate. Right side seems to be much clearer today. Urine cultures were positive for E. coli on admission. Otherwise the rest of the cultures including blood and sputum were negative so far. Patient remains on bronchodilators, she is also on methylprednisolone 60 mg IV push every 6 hours, and she is on Zosyn. Considering the patient is awake, arousable, and considering she is appropriate mentally, I recommended a short trial of pressure support and CPAP with a pressure support of 10 while I was at bedside. Checking on the patient with pressure support and CPAP mode of mechanical ventilation, and half an hour later patient continued to tolerate that quite well, and her weaning parameters look reasonable, went ahead and recommended extubating the patient. Patient was extubated uneventfully, placed on nasal cannula. Patient is to have hemodialysis today. And she was seen yesterday by urology for left sided hydronephrosis, again this is being addressed by urology on the case Reevaluated today on 12/15/21, a shunt remains in the ICU, she was extubated yesterday uneventfully. She is on 2 L nasal cannula, and her O2 sats is 94% patient is yet to receive hemodialysis today. But overall the wound. No cough no wheezing no shortness of breath. CBC is relatively unremarkable WBC has 5.4 hemoglobin 8.3 left lites are normal BUN is 61 creatinine 3.34. Chest x-ray showed chronic emphysematous change, left basilar infiltrate or atelectasis is noted I suspect it is bibasilar infiltrates. Left more so than right Objective - Vital Signs Vital signs: Vital Signs Temp 98.5 F 12/15/21 08:00 Pulse 81 12/15/21 08:00 Resp 24 12/15/21 08:00 BP 135/67 12/15/21 08:00 Pulse Ox 94 L 12/15/21 08:00 FiO2 35 12/14/21 08:00 Intake & Output 12/14/21 12/15/21 12/15/21 18:59 06:59 18:59 Intake Total 424.311 210 120 Output Total 5 0 0 Balance 419.311 210 120 Weight 62.6 kg 62.4 kg Intake: IV 290 210 20 0.9 190 110 20 Piperacillin-Tazobactam 3 100 100 .375 gm In Sodium Chloride 0.9% 100 ml @ 25 mls/hr IVPB Q12HR [facility] Rx #:[id number] Intake, IV Titration 14.311 100 Amount Dexmedetomidine/0.9% NaCl 14.311 (Pmx) 400 mcg In Empty Bag 1 bag @ 0.2 MCG/KG/HR 3.145 mls/hr IV .Q24H [facility] Rx#:[id number] Piperacillin-Tazobactam 3 100 .375 gm In Sodium Chloride 0.9% 100 ml @ 25 mls/hr IVPB Q12HR [facility] Rx #:[id number] Tube Feeding 120 Output: Urine 5 0 0 Other: Voiding Method Indwelling Catheter Indwelling Catheter Indwelling Catheter # Bowel Movements 1 1 ABP, PAP, CO, CI - Last Documented Arterial Blood Pressure 117/54 - Exam Physical Exam: Revealed 71-year-old female, in no distress, on few liters nasal cannula Head: Atraumatic, normocephalic. HEENT:[Neck is supple.] [No neck masses.] [No thyromegaly.] [No JVD.] Chest: [Symmetrical chest expansion, minimal left basilar crackles Cardiac Exam: [Normal S1 and S2, no S3 gallop, no murmur.] Abdomen: [Soft, nontender, no megaly, no rebound, no guarding, normal bowel s ounds.] Extremities: [No clubbing, no edema, no cyanosis.] Good pulses bilaterally. Musculoskeletal: No deformities. No limitations in range of motion Neurological Exam: Alert and oriented 3, no gross focal neurologic deficits. Psychiatric: Normal mood, affect and normal mental status examination. Skin: No rashes. - Labs CBC & Chem 7: 12/15/21 05:21 12/15/21 05:21 Labs: Abnormal Lab Results - Last 24 Hours (Table) 12/14/21 12/14/21 12/14/21 Range/Units 11:33 17:18 20:17 RBC (3.80-5.40) m/uL Hgb (11.4-16.0) gm/dL Hct (34.0-46.0) % MCV (80.0-100.0) fL Sodium (137-145) mmol/L BUN (7-17) mg/dL Creatinine (0.52-1.04) mg/dL Glucose (74-99) mg/dL POC Glucose (mg/dL) 118 H 167 H 121 H (70-110) mg/dL Calcium (8.4-10.2) mg/dL 12/15/21 12/15/21 12/15/21 Range/Units 05:21 05:21 06:42 RBC 2.54 L (3.80-5.40) m/uL Hgb 8.3 L (11.4-16.0) gm/dL Hct 26.1 L (34.0-46.0) % MCV 102.6 H (80.0-100.0) fL Sodium 135 L (137-145) mmol/L BUN 61 H (7-17) mg/dL Creatinine 3.34 H (0.52-1.04) mg/dL Glucose 152 H (74-99) mg/dL POC Glucose (mg/dL) 147 H (70-110) mg/dL Calcium 7.5 L (8.4-10.2) mg/dL Microbiology - Last 24 Hours (Table) 12/10/21 10:35 Blood Culture - Preliminary Blood No Growth after 96 hours 12/10/21 10:59 Blood Culture - Preliminary Blood No Growth after 96 hours 12/11/21 23:50 Gram Stain - Final Sputum Sputum Culture - Final Assessment and Plan Assessment: Impression: Acute respiratory failure secondary to new seizure-like activity with agonal breathing both seizure-like activity requiring intubation and mechanical ventilation. EEG showed no evidence of seizure focus. Acute on chronic hypoxic respiratory failure secondary to underlying COPD and possibly acute diastolic congestive heart failure. Patient has severe COPD, she is on home O2, FEV1 is 30%. Possible aspiration pneumonia , on Zosyn. Acute E. coli urinary tract infection, on Zosyn. Chronic smoking History of left lower extremity DVT repeat venous Doppler showed improvement from previous study however she continues to have partially occlusive thrombus in the left lower extremity, and I'm planning to place the patient back on eliquis. This was placed on hold the last 2 days. Restarted back on eliquis. Chronic back pain History of GERD Acute kidney injury, patient is requiring hemodialysis her baseline creatinine back in October was 1.34. GFR was 41 the patient developed acute on chronic kidney injury. Recommendation: Continue incentive spirometry Ambulate as soon as possible. Advanced diet as tolerated Transfer to a regular medical floor Continue GI and DVT prophylaxis Continue antibiotics/Zosyn Continue bronchodilators. Continue hemodialysis. We will continue to follow Time with Patient: Less than 30
--- NOTE | 2021-12-15 11:11 | P.PN ---
Subjective Progress Note Date: 12/15/21 This is a 71-year-old female who was recently admitted with change in mental status and increased hypoxia and shortness of breath and being closely monitored. Multiple medical consultations following and patient had worsening hypoxia and abnormal ABG and brought to the ICU and patient was ultimately pl aced on mechanical vent. Patient is maintained on IV Zosyn and also emergently received a temporary dialysis catheter and is undergoing hemodialysis with nephrology following closely. Patient's kidney functions worsened and emergently started on dialysis. Patient is on mechanical vent with FiO2 of 35% with PEEP of 5. Patient was initiated on emergent dialysis last night and receiving again today. 12/13/2021 Patient is seen and evaluated in follow-up in the ICU with multiple medical consultations following. Patient continues on mechanical vent under sedation FiO2 is 35% with a PEEP of 5. Chest x-ray today shows chronic emphysematous changes with small to tiny bilateral pleural effusions and left basilar acute infiltrate and/or atelectasis noted. Patient also underwent EEG and was a bnormal with periods of suppression suggesting generalized cerebral dysfunction that can be seen in encephalopathy or medication induced. No epileptiform discharges noted. Patient continues on hemodialysis, sodium bicarb drip with nephrology following closely. Patient also continues on DuoNeb treatments along with IV steroids and will continue. Patient is on antibiotics and sputum cultures pending and preliminary cultures of blood thus far negative. Urine culture showed E. coli. 12/14/2021 Patient is seen in follow-up this morning continues on mechanical vent in the ICU with an FiO2 of 35% and PEEP is 5. Multiple medical consultations following including nephrology and patient has been receiving hemodialysis daily. Patient is continued on DuoNeb treatments along with subcutaneous Lovenox, IV steroids high-dose, Zosyn, and propofol is currently off. Attempting sedation holidays with possibly weaning. Rest x-ray this morning shows no change from one day prior with left basilar airspace opacification and possible left pleural effusion. Urology has been consulted for nephrosclerosis with history of left renal atrophy with severe hydrocele is noted of the left kidney and CT abdomen pelvis without contrast is ordered. Recommending to continue with indwelling Santos catheter. Cardiology also consulted for the elevated troponins recommend to continue with current cardiac medications and continue telemetry monitoring. The pressures are soft although not requiring pressor support at this time. Blood cultures have been negative and patient's urine culture was E. coli gram stained sputum culture currently pending at this time. Per nursing staff plan is for extubation possibly today. 12/14/2021 Patient is seen today and is on 2L via NC tolerating. Extubated yesterday. Patient is to receive dialysis again today with nephrology following. Discussion about possible outpatient dialysis being needed as patient is not producing urine. To continue over the next few days and monitor closely. Maintained on breathing treatments along with IV steroids and antibiotics. Patient is in the ICU although is a down grade to the med surg unit. Afebrile and denies worsening shortness of breath or chest pains. Tolerating diet. Review of systems: Unable to obtain as patient is sleeping All medications have been reviewed Active Medications Acetaminophen (Acetaminophen Tab 325 Mg Tab) 650 mg PO Q6HR PRN PRN Reason: Mild Pain or Fever > 100.5 Last Admin: 12/13/21 00:14 Dose: 650 mg Albuterol/Ipratropium (Ipratropium-Albuterol 3 Ml Neb) 3 ml INHALATION RT-QID [facility] Last Admin: 12/15/21 10:47 Dose: 3 ml Albuterol/Ipratropium (Ipratropium-Albuterol 3 Ml Neb) 3 ml INHALATION RT-Q4H PRN PRN Reason: Shortness Of Breath Or Wheezing Last Admin: 12/13/21 23:52 Dose: 3 ml Apixaban (Apixaban 5 Mg Tab) 5 mg PO BID [facility]; Protocol Last Admin: 12/15/21 07:42 Dose: 5 mg Budesonide (Budesonide 1 Mg/2 Ml Nebu) 1 mg INHALATION RT-BID [facility] Last Admin: 12/15/21 07:12 Dose: 1 mg Darbepoetin Michele (Darbepoetin Michele 60 Mcg/0.3 Ml Syringe) 60 mcg SQ Q7D [facility] Last Admin: 12/14/21 15:45 Dose: 60 mcg Dextrose/Water (Dextrose 50% Syringe 50 Ml) 25 ml IVP PER PROTOCOL PRN; Protocol PRN Reason: Hypoglycemia Dextrose/Water (Dextrose 50% Syringe 50 Ml) 50 ml IVP PER PROTOCOL PRN; Protocol PRN Reason: Hypoglycemia Formoterol Fumarate (Formoterol Fumarate 20 Mcg/2 Ml Nebu) 20 mcg INHALATION RT-BID [facility] Last Admin: 12/15/21 07:12 Dose: 20 mcg Piperacillin Sod/Tazobactam (Sod 3.375 gm/ Sodium Chloride) 100 mls @ 25 mls/hr IVPB Q12HR [facility]; Protocol Last Admin: 12/15/21 07:42 Dose: 25 mls/hr Dexmedetomidine HCl 400 mcg/ (IV Solution) 100 mls @ 3.145 mls/hr IV .Q24H [facility]; Protocol Last Admin: 12/15/21 07:43 Dose: Not Given Insulin Aspart (Insulin Aspart (Novolog) 100 Unit/Ml Vial) 0 unit SQ ACHS [facility]; Protocol Last Admin: 12/15/21 06:48 Dose: Not Given Methylprednisolone Sodium Succinate (Methylprednisolone Sod Succi 40 Mg/Ml 1 Ml Vial) 40 mg IV Q8HR [facility] Last Admin: 12/15/21 07:43 Dose: 40 mg Naloxone HCl (Naloxone 0.4 Mg/Ml 1 Ml Vial) 0.2 mg IV Q2M PRN PRN Reason: Opioid Reversal Pantoprazole Sodium (Pantoprazole 40 Mg/10 Ml Vial) 40 mg IV DAILY [facility] Last Admin: 12/15/21 07:43 Dose: 40 mg PHYSICAL EXAMINATION: GENERAL: The patient is lethargic but arousable, alert and oriented x2. r eceiving hemodialysis on a breathing treatment. Elderly female HEENT: Pupils are round and equally reacting to light. EOMI. no scleral icterus. No conjunctival pallor. Normocephalic, atraumatic. No pharyngeal erythema. No thyromegaly. CARDIOVASCULAR: S1 and S2 muffled PULMONARY: diminished breath sounds bilaterally with scattered rhonchi and crackles noted. ABDOMEN: soft. Nontender on exam. non-distended, normoactive bowel sounds. No palpable organomegaly. MUSCULOSKELETAL: No joint swelling or deformity. EXTREMITIES: No cyanosis, clubbing, or pedal edema. NEUROLOGICAL: Gross neurological examination did not reveal any focal deficits. Lethargic. Diffuse weakness SKIN: No rashes. Assessment: Change in mental status, acute metabolic encephalopathy Acute on chronic hypoxic respiratory failure requiring mechanical ventilation on 12/11/2021, extubated on 12/14/2021 Congestive heart failure and chronic obstructive pulmonary disease, acute exacerbation Acute renal failure requiring emergent dialysis catheter placement and hemodialysis started last night Troponin indeterminate at 0.119 Degenerative joint disease History of DVT Gastroesophageal reflux disease Osteoarthritis Chronic bullous emphysema history Former smoker of 40+ years GI prophylaxis DVT prophylaxis Full code Plan: Recommend to continue with current medications and management and continues in the ICU with multiple medical consultations following. Patient is a down grade to med-surg once a bed becomes available. Patient was just extubated successfully and currently maintained on 2L via NC. Patient is also on hemodialysis daily for now. Patient is receiving IV antibiotics and will continue along with IV steroids and DuoNeb treatments. Kidney function slowly improving current creatinine is down and tolerating hemodialysis well. NOt producing much urine and may need permacath placement for outpatient dialysis arranged. . Recommend to continue with current medication regimen and labs in the a.m. Will have physical therapy work with the patient once more stable. Due to multiple complex medical issues, prognosis is extremely guarded. The impression and plan of care has been dictated as a scribe by Carmen Yeboah, nurse practitioner as directed. Dr. Get MD I have performed a history and examination and MDM of this patient, discussed the same with the dictator, and has been documented as a scribe. Based on total visit time, I have performed more than 50% of the visit. Any additional findings or plans will be noted. Objective - Vital Signs Vital signs: Vital Signs Temp 97.9 F 12/15/21 04:00 Pulse 75 12/15/21 04:00 Resp 30 H 12/15/21 04:00 BP 133/64 12/15/21 04:00 Pulse Ox 100 12/15/21 04:00 FiO2 35 12/14/21 08:00 Intake & Output 12/14/21 12/14/21 12/15/21 06:59 18:59 06:59 Intake Total 940.504 424.311 190 Output Total 0 5 0 Balance 940.504 419.311 190 Weight 62.6 kg 62.6 kg 62.4 kg Intake: IV 320 290 190 0.9 220 190 90 Piperacillin-Tazobactam 3 100 100 100 .375 gm In Sodium Chloride 0.9% 100 ml @ 25 mls/hr IVPB Q12HR [facility] Rx #:[id number] Intake, IV Titration 90.504 14.311 Amount Dexmedetomidine/0.9% NaCl 90.504 14.311 (Pmx) 400 mcg In Empty Bag 1 bag @ 0.2 MCG/KG/HR 3.145 mls/hr IV .Q24H [facility] Rx#:[id number] Tube Feeding 440 120 Other 90 Output: Urine 0 5 0 Other: Voiding Method Indwelling Catheter Indwelling Catheter Indwelling Catheter # Bowel Movements 1 1 ABP, PAP, CO, CI - Last Documented Arterial Blood Pressure 117/54 - Labs CBC & Chem 7: 12/15/21 05:21 12/15/21 05:21 Labs: Abnormal Lab Results - Last 24 Hours (Table) 12/14/21 12/14/21 12/14/21 Range/Units 06:12 06:12 11:33 RBC 2.47 L (3.80-5.40) m/uL Hgb 7.9 L (11.4-16.0) gm/dL Hct 25.3 L (34.0-46.0) % MCV 102.4 H (80.0-100.0) fL Sodium 136 L (137-145) mmol/L BUN 56 H (7-17) mg/dL Creatinine 3.65 H (0.52-1.04) mg/dL Glucose 217 H (74-99) mg/dL POC Glucose (mg/dL) 118 H (70-110) mg/dL Calcium 7.1 L (8.4-10.2) mg/dL 12/14/21 12/14/21 12/15/21 Range/Units 17:18 20:17 05:21 RBC 2.54 L (3.80-5.40) m/uL Hgb 8.3 L (11.4-16.0) gm/dL Hct 26.1 L (34.0-46.0) % MCV 102.6 H (80.0-100.0) fL Sodium (137-145) mmol/L BUN (7-17) mg/dL Creatinine (0.52-1.04) mg/dL Glucose (74-99) mg/dL POC Glucose (mg/dL) 167 H 121 H (70-110) mg/dL Calcium (8.4-10.2) mg/dL 12/15/21 Range/Units 05:21 RBC (3.80-5.40) m/uL Hgb (11.4-16.0) gm/dL Hct (34.0-46.0) % MCV (80.0-100.0) fL Sodium 135 L (137-145) mmol/L BUN 61 H (7-17) mg/dL Creatinine 3.34 H (0.52-1.04) mg/dL Glucose 152 H (74-99) mg/dL POC Glucose (mg/dL) (70-110) mg/dL Calcium 7.5 L (8.4-10.2) mg/dL Microbiology - Last 24 Hours (Table) 12/10/21 10:35 Blood Culture - Preliminary Blood No Growth after 96 hours 12/10/21 10:59 Blood Culture - Preliminary Blood No Growth after 96 hours 12/11/21 23:50 Gram Stain - Final Sputum Sputum Culture - Final
[2021-12-15 11:46] LABS: Glucose,Whole Blood 387 mg/dL (70-110)
[2021-12-15 11:46] LABS: Glucose,Whole Blood 534 mg/dL (70-110)
[2021-12-15 11:46] LABS: Glucose,Whole Blood 586 mg/dL (70-110)
[2021-12-15 11:48] LABS: Glucose,Whole Blood 275 mg/dL (70-110)
[2021-12-15 16:13] LABS: Glucose,Whole Blood 101 mg/dL (70-110)
[2021-12-15 16:48] LABS: % Iron Saturation 24.33 (12.00-45.00)
[2021-12-15 20:08] LABS: Glucose,Whole Blood 126 mg/dL (70-110)
[2021-12-16 06:21] LABS: Glucose,Whole Blood 156 mg/dL (70-110)
[2021-12-16] MEDS: INSULIN ASPART (NovoLOG) 100 UNIT/ML VIAL SQ SCH ×4 (06:42→20:06)
[2021-12-16] MEDS: FORMOTEROL FUMARATE 20 MCG/2 ML NEBU INHALATION SCH ×2 (06:59→20:14)
[2021-12-16] MEDS: BUDESONIDE 1 MG/2 ML NEBU INHALATION SCH ×2 (06:59→20:14)
[2021-12-16] MEDS: IPRATROPIUM-ALBUTEROL 3 ML NEB INHALATION SCH ×4 (06:59→20:14)
[2021-12-16] MEDS ORDERED: FUROSEMIDE 10 MG/ML 10 ML VIAL IV STA (08:47)
--- NOTE | 2021-12-16 09:41 | P.PN ---
Subjective Patient is seen in follow-up for acute kidney injury. Oliguric. Hemodialysis dependent. Oral intake is good. Blood pressure stable. Denies chest pain or shortness of breath. No active complaints. No problems with dialysis yesterday. Vital signs are stable. General: Awake. No acute distress. HEENT: Head exam is unremarkable. LUNGS: Breath sounds decreased. HEART: Rate and Rhythm are regular. ABDOMEN: Soft, no distention. EXTREMITITES: Trace edema. Objective - Vital Signs Vital signs: Vital Signs Temp 98.9 F 12/16/21 02:00 Pulse 88 12/16/21 07:21 Resp 16 12/16/21 06:00 BP 158/78 12/16/21 06:00 Pulse Ox 100 12/16/21 06:00 FiO2 35 12/14/21 08:00 Intake & Output 12/15/21 12/16/21 12/16/21 18:59 06:59 18:59 Intake Total 220 120 Output Total 0 0 Balance 220 120 Weight 62.4 kg 60.3 kg Intake: IV 120 120 0.9 120 120 Intake, IV Titration 100 Amount Piperacillin-Tazobactam 3 100 .375 gm In Sodium Chloride 0.9% 100 ml @ 25 mls/hr IVPB Q12HR [facility] Rx #:[id number] Output: Urine 0 0 Other: Voiding Method Indwelling Catheter Indwelling Catheter # Bowel Movements 1 ABP, PAP, CO, CI - Last Documented Arterial Blood Pressure 117/54 - Labs CBC & Chem 7: 12/15/21 05:21 12/15/21 05:21 Labs: Abnormal Lab Results - Last 24 Hours (Table) 12/15/21 12/15/21 12/15/21 Range/Units 05:21 11:42 11:43 POC Glucose (mg/dL) 586 H 534 H (70-110) mg/dL Phosphorus 6.0 H (2.5-4.5) mg/dL Iron 45 L (50-170) ug/dL TIBC 186 L (228-460) ug/dL Transferrin 133.0 L (204.0-354.0) mg/dL Ferritin 666.0 H (10.0-291.0) ng/mL 12/15/21 12/15/21 12/15/21 Range/Units 11:44 11:46 20:06 POC Glucose (mg/dL) 387 H 275 H 126 H (70-110) mg/dL Phosphorus (2.5-4.5) mg/dL Iron (50-170) ug/dL TIBC (228-460) ug/dL Transferrin (204.0-354.0) mg/dL Ferritin (10.0-291.0) ng/mL 12/16/21 Range/Units 06:19 POC Glucose (mg/dL) 156 H (70-110) mg/dL Phosphorus (2.5-4.5) mg/dL Iron (50-170) ug/dL TIBC (228-460) ug/dL Transferrin (204.0-354.0) mg/dL Ferritin (10.0-291.0) ng/mL Microbiology - Last 24 Hours (Table) 12/10/21 10:59 Blood Culture - Preliminary Blood No Growth after 120 hours 12/10/21 10:35 Blood Culture - Preliminary Blood No Growth after 120 hours Assessment and Plan Plan: Assessment: 1. Acute kidney injury secondary to ATN secondary to septic shock. Oliguric. Started on hemodialysis 12/21/2021. Baseline creatinine 1-1.3 from August and September 2021. 2. Septic shock secondary to E. coli UTI and aspiration pneumonia on antibiotics. 3. Left hydronephrosis. Appears to be chronic with atrophic left kidney. No interventions planned. 4. Chronic kidney disease stage IIIa secondary to nephrosclerosis/obx uropathy with solitary functioning kidney. Baseline creatinine 1-1.3. 5. Anemia of chronic kidney disease. On Aranesp. Iron replete. 6. Metabolic acidosis secondary to acute kidney injury. Improved postdialysis. 7. Hyperphosphatemia secondary to acute kidney injury. Plan: Hemodialysis tomorrow. Maintain on Friday schedule. No response in urine output despite IV Lasix. DC Santos catheter. Add PhosLo with meals. Continue to monitor for renal recovery. No UA available. Patient is anuric. Will order serologies. Currently has femoral dialysis catheter. Patient remains oliguric. Will need permacath. Outpatient dialysis to be set up by case management.
[2021-12-16] MEDS: DEXMEDETOMIDINE/0.9% NACL(PMX) 400 MCG in EMPTY BAG 1 BAG IV SCH (10:13)
[2021-12-16] MEDS: PIPERACILLIN-TAZOBACTAM 3.375 GM in SODIUM CHLORIDE 0.9% 100 ML IVPB SCH ×2 (10:23→20:46)
[2021-12-16] MEDS: APIXABAN 5 MG TAB PO SCH ×2 (10:23→20:45)
[2021-12-16] MEDS: PANTOPRAZOLE 40 MG/10 ML VIAL IV SCH (10:23)
[2021-12-16] MEDS: methylPREDNISolone SOD SUCCI 40 MG/ML 1 ML VIAL IV SCH ×2 (10:24→17:16)
[2021-12-16 11:24] LABS: Calcium 7.4 mg/dL (8.4-10.2)
[2021-12-16 11:24] LABS: Glucose,Whole Blood 109 mg/dL (70-110)
[2021-12-16 11:26] LABS: Potassium 4.9 mmol/L (3.5-5.1)
[2021-12-16 11:30] LABS: Basophils % (A) 0 %; Eosinophils % (A) 0 %; HGB 8.7 gm/dL (11.4-16.0); Hypochromasia Marked; Lymphocytes # (A) 0.9 k/uL (1.0-4.8); Lymphocytes % (A) 15 %; MCH 33.5 pg (25.0-35.0); MCHC 32.4 g/dL (31.0-37.0); MCV 103.6 fL (80.0-100.0); Macrocytosis Slight; Mean Platelet Volume 8.3; Monocytes # (A) 0.2 k/uL (0-1.0); Monocytes % (A) 3 %; Neutrophils # (A) 4.5 k/uL (1.3-7.7); Neutrophils % (A) 78 %; Platelet Count 250 k/uL (150-450); RBC 2.61 m/uL (3.80-5.40); RDW 14.4 % (11.5-15.5); WBC 5.9 k/uL (3.8-10.6)
[2021-12-16] MEDS: CALCIUM ACETATE 667 MG TAB PO SCH ×2 (11:51→17:16)
--- NOTE | 2021-12-16 12:30 | P.PN ---
Subjective Progress Note Date: 12/09/21 Principal diagnosis: Altered mental status, possible seizure- This 71-year-old female patient who presented to the emergency room yesterday via EMS as her family had noted a 4 day history of generalized weakness and confusion. She has a known history of advanced chronic obstructive pulmonary disease with previous history of heavy tobacco dependence. Her FEV1 ranges between 30 and 35% of predicted. She is maintained on Dulera, Spiriva and albuterol in the outpatient setting. She has a nebulizer for treatments as well. She is also oxygen dependent on 2 L at home. She was discharged One month ago for an acute on chronic hypoxic respiratory failure secondary to COPD exacerbation without clear evidence of pneumonia. Chest x-ray showing bilateral interstitial edema on background bilateral chronic parenchymal changes. Most likely fluid overload state. Echocardiogram reveals preserved left ventricular systolic ejection fraction of 50-55%. Basilar inferior hypokinesis. No pericardial effusion. Computed tomography scan of the brain revealed no acute intracranial hemorrhage or midline shift. There is [id number] diffuse age-related cerebral atrophy and mild chronic small vessel ischemic changes noted. Follow-up chest x-ray continues show some interstitial changes. Evidence of emphysema. Urine culture is positive for gram-negative bacilli. Blood cultures are pending. White count 10.1. Hemoglobin 11.3. Sodium 139. Potassium 4.3. Bicarb 19. BUN 65. Creatinine 6.00. Pro calcitonin 6.11. Troponin leak at 0.11, 0.11, 0.12. ProBNP 15,600. Ocampo virus not detected. Influenza screen negative. She's been initiated on DuoNeb inhalations, Pulmicort inhalations. Anticoagulated with Eliquis. She is seen today in consultation on the selective care unit. She is currently resting in bed. Awake. Confused to time and place. Maintaining O2 saturation in the low 90s on 3 L/m per nasal cannula. Afebrile. Arterial blood gases on 28% FiO2 revealed a pO2 of 79, pCO2 38, pH 7.27. Nephrology is on regarding acute renal failure with a GFR of 7. Reevaluated today on 12/12/21, patient developed a sudden onset seizure yesterday and this was witnessed, this was noted shortly after dialysis was started. Patient never lost her pulse, however she was post ictal after the seizure, and her breathing was noted to be agonal. Hence the patient was intubated by HEAD TEACHER, sent down for a CT of the head which was normal, transferred to ICU on mechanical ventilation. Patient is yet to be seen by neurology on consultation, she had EEG and CT of the head yesterday. Today she is on mechanical ventilation, assist control rate of 20, volume of 500 FiO2 30% and PEEP of 5. ABG showed a pO2 of 135 pCO2 36 pH of 7.28, hence the changes made included increase FiO2 up to 35% increase tidal volume down to 450 increase respiratory rate to 22 started patient on a bicarb drip at 50 mL per hour and cut down her IV fluid to 50 mL per hour. Considering her hemodynamic status, and considering the patient isn't requiring dialysis, a right radial arterial line was placed on emergent basis. Patient had no urine output yesterday, she is scheduled to undergo dialysis again today. CT of the brain was negative. Ultrasound of the kidneys showed left sided hydronephrosis. Right kidney seems to be intact. Patient is on propofol at 50 mcg/kg/m, she is not requiring any pressors. She is fully sedated, however I plan to cut down on the propofol, and hopefully assess mental status off propofol. This will be done later today after the patient is dialyzed, and after seen by neurology consider starting the patient on seizure medications, likely Keppra. EEG is yet to be evaluated by neurology. WBC count today is 7.5 hemoglobin is 10.3. Basic metabolic profile is normal renal profile showed a BUN of 64 creatinine 6.63. Patient is now on eliquis 5 mg by mouth twice a day Pulmicort [facility], Perforomist [facility], she is also on a bicarb drip at 50 mL per hour, insulin as per protocol, DuoNeb, Solu-Medrol 60 mg IV push every 6 hours, Protonix 40 mg IV push daily, Zosyn empirically, since her chest x-rays showing possible left lower lobe new infiltrate. Patient was noted to have evidence of possible UTI, and she also had elevated pro calcitonin level on admission. Reevaluated today on 12/13/21, patient remains in the ICU, intubated and mechanically ventilated. She is on assist control rate of 22, volume 450 FiO2 35% PEEP of 5. ABG showed a pO2 of 82 pCO2 44 pH of 7.47 hence no changes were made in her ventilator settings. Patient dropped her hemoglobin from 10.3-8.4, she has some minimal oozing around the dialysis catheter, and yesterday she was oozing around the arterial line which we have discontinued. Today I look back and found that the patient has been on eliquis for DVT from over 4 months ago. Hence I recommended stopping eliquis and we will check a venous Doppler make sure there is no active DVT in lower extremities. Patient will have hemodialysis again today. She is on propofol at 20 mcg/kg/m she is also on a bicarb drip at 50 mL/h, she is also receiving vital HP at 2 5 mL an hour chest x-ray is showing bibasilar airspace disease, possibility of aspiration pneumonia is very likely patient remains on Zosyn. EEG done yesterday showed no evidence of seizure focus, hence the patient was not placed on any antiseizure medication as recommended by neurology. WBC count today is 5.4 hemoglobin is 8.4, linsey ctrolytes are normal bicarb is 28 hence I will discontinue her bicarb. Her BUN is 54 creatinine 4.51. Urine culture on this admission showed E. coli, sensitive to Zosyn, patient remains on Zosyn. Blood cultures have been negative along, sputum cultures are nondiagnostic. Patient was reevaluated today on 12/14/21, patient remains in the ICU, intubated and mechanically ventilated. She is on assist control rate of 22, tidal volume is 450 FiO2 35% and PEEP of 5.Patient is on Precedex at 0.3 mcg/kg per hour. Patient is awake, arousable, follows simple instructions, and her labs were reviewed she had a relatively normal CBC WBC is 4.1 hemoglobin is 7.9. Basic metabolic profile is normal however her BUN is 56 creatinine 3.65, patient is scheduled to undergo hemodialysis again today. Chest x-ray showed mostly stable left basilar opacity consistent with infiltrate. Right side seems to be much clearer today. Urine cultures were positive for E. coli on admission. Otherwise the rest of the cultures including blood and sputum were negative so far. Patient remains on bronchodilators, she is also on methylprednisolone 60 mg IV push every 6 hours, and she is on Zosyn. Considering the patient is awake, arousable, and considering she is appropriate mentally, I recommended a short trial of pressure support and CPAP with a pressure support of 10 while I was at bedside. Checking on the patient with pressure support and CPAP mode of mechanical ventilation, and half an hour later patient continued to tolerate that quite well, and her weaning parameters look reasonable, went ahead and recommended extubating the patient. Patient was extubated uneventfully, placed on nasal cannula. Patient is to have hemodialysis today. And she was seen yesterday by urology for left sided hydronephrosis, again this is being addressed by urology on the case Reevaluated today on 12/15/21, a shunt remains in the ICU, she was extubated yesterday uneventfully. She is on 2 L nasal cannula, and her O2 sats is 94% patient is yet to receive hemodialysis today. But overall the wound. No cough no wheezing no shortness of breath. CBC is relatively unremarkable WBC has 5.4 hemoglobin 8.3 left lites are normal BUN is 61 creatinine 3.34. Chest x-ray showed chronic emphysematous change, left basilar infiltrate or atelectasis is noted I suspect it is bibasilar infiltrates. Left more so than right Reevaluated today on 12/16/21, patient remains in the ICU as an overflow, she tolerated the extubation over the last few days quite well, remains on 3 L nasal cannula, O2 sats is 95%, patient is not any distress, she is still undergoing hemodialysis for acute kidney injury. Patient has no fever, she is relatively asymptomatic, blood pressure is 143/78. WBC count is 5.9 hemoglobin 8.7 and el ectrolytes are normal BUN is 52 creatinine 3.0 Objective - Vital Signs Vital signs: Vital Signs Temp 97.9 F 12/16/21 08:00 Pulse 87 12/16/21 08:00 Resp 17 12/16/21 08:00 BP 143/78 12/16/21 08:00 Pulse Ox 95 12/16/21 08:00 FiO2 35 12/14/21 08:00 Intake & Output 12/15/21 12/16/21 12/16/21 18:59 06:59 18:59 Intake Total 220 120 Output Total 0 0 Balance 220 120 Weight 62.4 kg 60.3 kg Intake: IV 120 120 0.9 120 120 Intake, IV Titration 100 Amount Piperacillin-Tazobactam 3 100 .375 gm In Sodium Chloride 0.9% 100 ml @ 25 mls/hr IVPB Q12HR [facility] Rx #:[id number] Output: Urine 0 0 Other: Voiding Method Indwelling Catheter Indwelling Catheter Indwelling Catheter # Bowel Movements 1 1 ABP, PAP, CO, CI - Last Documented Arterial Blood Pressure 117/54 - Exam Physical Exam: Revealed 71-year-old female, in no distress, on 3 L nasal cannula Head: Atraumatic, normocephalic HEENT:[Neck is supple.] [No neck masses.] [No thyromegaly.] [No JVD.] Chest: [Symmetrical chest expansion, fine crackles at the bases. Cardiac Exam: [Normal S1 and S2, no S3 gallop, no murmur.] Abdomen: [Soft, nontender, no megaly, no rebound, no guarding, normal bowel sounds.] Extremities: [No clubbing, no edema, no cyanosis.] Good pulses bilaterally. Musculoskeletal: No deformities. No limitations in range of motion Neurological Exam: Alert and oriented 3, no gross focal neurologic deficits. Psychiatric: Normal mood, affect and normal mental status examination. Skin: No rashes. - Labs CBC & Chem 7: 12/16/21 10:53 12/16/21 10:53 Labs: Abnormal Lab Results - Last 24 Hours (Table) 12/15/21 12/15/21 12/16/21 Range/Units 05:21 20:06 06:19 RBC (3.80-5.40) m/uL Hgb (11.4-16.0) gm/dL Hct (34.0-46.0) % MCV (80.0-100.0) fL Lymphocytes # (1.0-4.8) k/uL BUN (7-17) mg/dL Creatinine (0.52-1.04) mg/dL Glucose (74-99) mg/dL POC Glucose (mg/dL) 126 H 156 H (70-110) mg/dL Calcium (8.4-10.2) mg/dL Iron 45 L (50-170) ug/dL TIBC 186 L (228-460) ug/dL Transferrin 133.0 L (204.0-354.0) mg/dL Ferritin 666.0 H (10.0-291.0) ng/mL 12/16/21 12/16/21 Range/Units 10:53 10:53 RBC 2.61 L (3.80-5.40) m/uL Hgb 8.7 L (11.4-16.0) gm/dL Hct 27.0 L (34.0-46.0) % MCV 103.6 H (80.0-100.0) fL Lymphocytes # 0.9 L (1.0-4.8) k/uL BUN 52 H (7-17) mg/dL Creatinine 3.00 H (0.52-1.04) mg/dL Glucose 103 H (74-99) mg/dL POC Glucose (mg/dL) (70-110) mg/dL Calcium 7.4 L (8.4-10.2) mg/dL Iron (50-170) ug/dL TIBC (228-460) ug/dL Transferrin (204.0-354.0) mg/dL Ferritin (10.0-291.0) ng/mL Microbiology - Last 24 Hours (Table) 12/10/21 10:59 Blood Culture - Preliminary Blood No Growth after 120 hours 12/10/21 10:35 Blood Culture - Preliminary Blood No Growth after 120 hours Assessment and Plan Assessment: Impression: Acute respiratory failure secondary to new seizure-like activity with agonal breathing both seizure-like activity requiring intubation and mechanical ventilation. EEG showed no evidence of seizure focus. Acute on chronic hypoxic respiratory failure secondary to underlying COPD and possibly acute diastolic congestive heart failure. Patient has severe COPD, she is on home O2, FEV1 is 30%. Possible aspiration pneumonia , on Zosyn. Acute E. coli urinary tract infection, on Zosyn. Chronic smoking History of left lower extremity DVT repeat venous Doppler showed improvement from previous study however she continues to have partially occlusive thrombus in the left lower extremity, back on eliquis. Chronic back pain History of GERD Acute kidney injury, patient is requiring hemodialysis her baseline creatinine back in October was 1.34. GFR was 41 the patient developed acute on chronic kidney injury. Recommendation: Transfer to a regular medical floor once a bed is available Continue incentive spirometry Continue GI and DVT prophylaxis Continue antibiotics/Zosyn Continue bronchodilators. Continue hemodialysis. We will continue to follow Time with Patient: Less than 30
[2021-12-16 16:23] LABS: Glucose,Whole Blood 165 mg/dL (70-110)
--- NOTE | 2021-12-16 17:55 | P.PN ---
Subjective Progress Note Date: 12/16/21 This is a 71-year-old female who was recently admitted with change in mental status and increased hypoxia and shortness of breath and being closely monitored. Multiple medical consultations following and patient had worsening hypoxia and abnormal ABG and brought to the ICU and patient was ultimately pl aced on mechanical vent. Patient is maintained on IV Zosyn and also emergently received a temporary dialysis catheter and is undergoing hemodialysis with nephrology following closely. Patient's kidney functions worsened and emergently started on dialysis. Patient is on mechanical vent with FiO2 of 35% with PEEP of 5. Patient was initiated on emergent dialysis last night and receiving again today. 12/13/2021 Patient is seen and evaluated in follow-up in the ICU with multiple medical consultations following. Patient continues on mechanical vent under sedation FiO2 is 35% with a PEEP of 5. Chest x-ray today shows chronic emphysematous changes with small to tiny bilateral pleural effusions and left basilar acute infiltrate and/or atelectasis noted. Patient also underwent EEG and was a bnormal with periods of suppression suggesting generalized cerebral dysfunction that can be seen in encephalopathy or medication induced. No epileptiform discharges noted. Patient continues on hemodialysis, sodium bicarb drip with nephrology following closely. Patient also continues on DuoNeb treatments along with IV steroids and will continue. Patient is on antibiotics and sputum cultures pending and preliminary cultures of blood thus far negative. Urine culture showed E. coli. 12/14/2021 Patient is seen in follow-up this morning continues on mechanical vent in the ICU with an FiO2 of 35% and PEEP is 5. Multiple medical consultations following including nephrology and patient has been receiving hemodialysis daily. Patient is continued on DuoNeb treatments along with subcutaneous Lovenox, IV steroids high-dose, Zosyn, and propofol is currently off. Attempting sedation holidays with possibly weaning. Rest x-ray this morning shows no change from one day prior with left basilar airspace opacification and possible left pleural effusion. Urology has been consulted for nephrosclerosis with history of left renal atrophy with severe hydrocele is noted of the left kidney and CT abdomen pelvis without contrast is ordered. Recommending to continue with indwelling Santos catheter. Cardiology also consulted for the elevated troponins recommend to continue with current cardiac medications and continue telemetry monitoring. The pressures are soft although not requiring pressor support at this time. Blood cultures have been negative and patient's urine culture was E. coli gram stained sputum culture currently pending at this time. Per nursing staff plan is for extubation possibly today. 12/15/2021 Patient is seen today and is on 2L via NC tolerating. Extubated yesterday. Patient is to receive dialysis again today with nephrology following. Discussion about possible outpatient dialysis being needed as patient is not producing urine. To continue over the next few days and monitor closely. Maintained on breathing treatments along with IV steroids and antibiotics. Patient is in the ICU although is a down grade to the med surg unit. Afebrile and denies worsening shortness of breath or chest pains. Tolerating diet. 12/16/2021 Patient is seen in follow up and continuing on 2L via nc. Patient is currently on hemodialysis and will need to discuss with nephrology about outpatient dialysis. Patient to continue with duonebs and IS use. Encouraged increased activity as tolerated and will have PT/OT evaluate. Encourage oral intake, renal diet. Patient is continued on IV antibiotics as well. Patient to receive lasix today. Awaiting med surg bed. Afebrile and denies worsening shortness of breath or chest pains. Tolerating diet. All medications have been reviewed Active Medications Acetaminophen (Acetaminophen Tab 325 Mg Tab) 650 mg PO Q6HR PRN PRN Reason: Mild Pain or Fever > 100.5 Last Admin: 12/13/21 00:14 Dose: 650 mg Albuterol/Ipratropium (Ipratropium-Albuterol 3 Ml Neb) 3 ml INHALATION RT-QID [facility] Last Admin: 12/16/21 16:13 Dose: 3 ml Albuterol/Ipratropium (Ipratropium-Albuterol 3 Ml Neb) 3 ml INHALATION RT-Q4H PRN PRN Reason: Shortness Of Breath Or Wheezing Last Admin: 12/13/21 23:52 Dose: 3 ml Apixaban (Apixaban 5 Mg Tab) 5 mg PO BID [facility]; Protocol Last Admin: 12/16/21 10:23 Dose: 5 mg Budesonide (Budesonide 1 Mg/2 Ml Nebu) 1 mg INHALATION RT-BID [facility] Last Admin: 12/16/21 06:59 Dose: 1 mg Calcium Acetate (Calcium Acetate 667 Mg Tab) 667 mg PO TID-W/MEALS [facility] Last Admin: 12/16/21 17:16 Dose: 667 mg Darbepoetin Michele (Darbepoetin Michele 60 Mcg/0.3 Ml Syringe) 60 mcg SQ Q7D [facility] Last Admin: 12/14/21 15:45 Dose: 60 mcg Dextrose/Water (Dextrose 50% Syringe 50 Ml) 25 ml IVP PER PROTOCOL PRN; Protocol PRN Reason: Hypoglycemia Dextrose/Water (Dextrose 50% Syringe 50 Ml) 50 ml IVP PER PROTOCOL PRN; Protocol PRN Reason: Hypoglycemia Formoterol Fumarate (Formoterol Fumarate 20 Mcg/2 Ml Nebu) 20 mcg INHALATION RT-BID [facility] Last Admin: 12/16/21 06:59 Dose: 20 mcg Piperacillin Sod/Tazobactam (Sod 3.375 gm/ Sodium Chloride) 100 mls @ 25 mls/hr IVPB Q12HR [facility]; Protocol Last Admin: 12/16/21 10:23 Dose: 25 mls/hr Dexmedetomidine HCl 400 mcg/ (IV Solution) 100 mls @ 3.145 mls/hr IV .Q24H [facility]; Protocol Last Admin: 12/16/21 10:13 Dose: Not Given Insulin Aspart (Insulin Aspart (Novolog) 100 Unit/Ml Vial) 0 unit SQ ACHS [facility]; Protocol Last Admin: 12/16/21 17:24 Dose: 1 unit Methylprednisolone Sodium Succinate (Methylprednisolone Sod Succi 40 Mg/Ml 1 Ml Vial) 40 mg IV Q8HR [facility] Last Admin: 12/16/21 17:16 Dose: 40 mg Naloxone HCl (Naloxone 0.4 Mg/Ml 1 Ml Vial) 0.2 mg IV Q2M PRN PRN Reason: Opioid Reversal Pantoprazole Sodium (Pantoprazole 40 Mg/10 Ml Vial) 40 mg IV DAILY [facility] Last Admin: 12/16/21 10:23 Dose: 40 mg PHYSICAL EXAMINATION: GENERAL: The patient is awake, alert and oriented x2. Elderly female HEENT: Pupils are round and equally reacting to light. EOMI. no scleral icterus. No conjunctival pallor. Normocephalic, atraumatic. No pharyngeal erythema. No thyromegaly. CARDIOVASCULAR: S1 and S2 muffled PULMONARY: diminished breath sounds bilaterally with scattered rhonchi and crackles noted. ABDOMEN: soft. Nontender on exam. non-distended, normoactive bowel sounds. No palpable organomegaly. MUSCULOSKELETAL: No joint swelling or deformity. EXTREMITIES: No cyanosis, clubbing, or pedal edema. NEUROLOGICAL: Gross neurological examination did not reveal any focal deficits. Diffuse weakness SKIN: No rashes. Assessment: Change in mental status, acute metabolic encephalopathy, improving Acute on chronic hypoxic respiratory failure requiring mechanical ventilation on 12/11/2021, extubated on 12/14/2021 Congestive heart failure and chronic obstructive pulmonary disease, acute exacerbation Acute renal failure requiring emergent dialysis catheter placement and hemodialysis Troponin indeterminate at 0.119 Degenerative joint disease History of DVT Gastroesophageal reflux disease Osteoarthritis Chronic bullous emphysema history Former smoker of 40+ years GI prophylaxis DVT prophylaxis Full code Plan: Recommend to continue with current medications and management and continues in the ICU with multiple medical consultations following. Patient is a down grade to med-surg once a bed becomes available. Patient was just extubated successfully and currently maintained on 2L via NC. Patient is also on hemodi alysis daily for now. Patient is receiving IV antibiotics and will continue along with IV steroids and DuoNeb treatments. Patient is to receive lasix today. May need permacath placement for outpatient dialysis arranged.To discuss further with nephrology and case management . Recommend to continue with current medication regimen and labs in the a.m. Will have physical therapy work with the patient in am. Due to multiple complex medical issues, prognosis is extremely guarded. The impression and plan of care has been dictated as a scribe by Carmen Yeboah, nurse practitioner as directed. Dr. Get MD I have performed a history and examination and MDM of this patient, discussed the same with the dictator, and has been documented as a scribe. Based on total visit time, I have performed more than 50% of the visit. Any additional findings or plans will be noted. Objective - Vital Signs Vital signs: Vital Signs Temp 98.9 F 12/16/21 02:00 Pulse 88 12/16/21 07:21 Resp 16 12/16/21 06:00 BP 158/78 12/16/21 06:00 Pulse Ox 100 12/16/21 06:00 FiO2 35 12/14/21 08:00 Intake & Output 12/15/21 12/16/21 12/16/21 18:59 06:59 18:59 Intake Total 220 120 Output Total 0 0 Balance 220 120 Weight 62.4 kg 60.3 kg Intake: IV 120 120 0.9 120 120 Intake, IV Titration 100 Amount Piperacillin-Tazobactam 3 100 .375 gm In Sodium Chloride 0.9% 100 ml @ 25 mls/hr IVPB Q12HR [facility] Rx #:[id number] Output: Urine 0 0 Other: Voiding Method Indwelling Catheter Indwelling Catheter # Bowel Movements 1 ABP, PAP, CO, CI - Last Documented Arterial Blood Pressure 117/54 - Labs CBC & Chem 7: 12/16/21 10:53 12/16/21 10:53 Labs: Abnormal Lab Results - Last 24 Hours (Table) 12/15/21 12/15/21 12/15/21 Range/Units 05:21 11:42 11:43 POC Glucose (mg/dL) 586 H 534 H (70-110) mg/dL Phosphorus 6.0 H (2.5-4.5) mg/dL Iron 45 L (50-170) ug/dL TIBC 186 L (228-460) ug/dL Transferrin 133.0 L (204.0-354.0) mg/dL Ferritin 666.0 H (10.0-291.0) ng/mL 12/15/21 12/15/21 12/15/21 Range/Units 11:44 11:46 20:06 POC Glucose (mg/dL) 387 H 275 H 126 H (70-110) mg/dL Phosphorus (2.5-4.5) mg/dL Iron (50-170) ug/dL TIBC (228-460) ug/dL Transferrin (204.0-354.0) mg/dL Ferritin (10.0-291.0) ng/mL 12/16/21 Range/Units 06:19 POC Glucose (mg/dL) 156 H (70-110) mg/dL Phosphorus (2.5-4.5) mg/dL Iron (50-170) ug/dL TIBC (228-460) ug/dL Transferrin (204.0-354.0) mg/dL Ferritin (10.0-291.0) ng/mL Microbiology - Last 24 Hours (Table) 12/10/21 10:59 Blood Culture - Preliminary Blood No Growth after 120 hours 12/10/21 10:35 Blood Culture - Preliminary Blood No Growth after 120 hours
[2021-12-16 19:05] LABS: Hepatitis A Antibody IgM Nonreactive (Nonreactive); Hepatitis B Core IgM Nonreactive (Nonreactive); Hepatitis B Surface Antigen Nonreactive (Nonreactive); Hepatitis C IgG Antibody Nonreactive (Nonreactive)
[2021-12-16 19:43] LABS: Glucose,Whole Blood 139 mg/dL (70-110)
--- NOTE | 2021-12-17 00:19 | PN ---
PROGRESS NOTE SUBJECTIVE: This is a 71-year-old lady, who was extubated, remains in sinus rhythm, and stable hemodynamically. OBJECTIVE: VITAL SIGNS: Heart rate is 80 beats per minute, blood pressure is 134/67, respiratory rate is 18, O2 saturation is 94% on 2 L. NECK: There is no jugular venous distention. CHEST: Diminished air entry at the bases. HEART: First and second heart sounds. No gallop. EXTREMITIES: Mild edema. LABORATORY DATA: Labs show a hemoglobin of 8.3, BUN is 61, creatinine is 3.3. The patient is currently on Eliquis 5 b.i.d., insulin, and rest of her medications. ASSESSMENT AND PLAN: 1. Acute renal failure. 2. Elevated troponin secondary to renal failure. 3. History of deep vein thrombosis. Continue current medications. The patient is doing much better, extubated. MMODL / SILVANON: [id number] /
--- NOTE | 2021-12-17 00:55 | PN ---
PROGRESS NOTE SUBJECTIVE: 71-year-old lady who is admitted to the Intensive Care Unit with COPD exacerbation and whose condition had deteriorated, she was intubated, and placed on the ventilator. She has since been extubated. An echocardiogram showed preserved LV function. This morning she is doing well. Denies any chest pain, shortness of breath has improved. She is on Eliquis 5 b.i.d. along with nebulizers, insulin, and steroids. PHYSICAL EXAMINATION: VITAL SIGNS: Heart rate is 87 beats per minute. Blood pressure is 143/70, respiratory rate is 18. CHEST: Reveals diminished air entry at the bases without any crackles or rhonchi. HEART: Reveals first and second heart sounds. Systolic murmur at the left lower sternal border. ABDOMEN: Soft. EXTREMITIES: Did not reveal any edema. Peripheral pulses are felt. ASSESSMENT: 1. Acute renal failure. 2. Elevated troponin secondary to acute renal failure. 3. Chronic obstructive pulmonary disease exacerbation. 4. History of deep vein thrombosis. PLAN: Patient is doing well. She will continue current medications and we will see the patient on an as-needed basis at this time. MMODL / IJN: [id number] /
[2021-12-17] MEDS: INSULIN ASPART (NovoLOG) 100 UNIT/ML VIAL SQ SCH ×4 (06:31→22:27)
[2021-12-17 06:32] LABS: Glucose,Whole Blood 146 mg/dL (70-110)
[2021-12-17] MEDS: CALCIUM ACETATE 667 MG TAB PO SCH ×3 (06:33→16:30)
[2021-12-17 07:21] LABS: Basophils % (A) 0 %; Calcium 7.7 mg/dL (8.4-10.2); Eosinophils % (A) 0 %; HCT 27.1 % (34.0-46.0); HGB 8.4 gm/dL (11.4-16.0); Hypochromasia Moderate; Lymphocytes # (A) 0.6 k/uL (1.0-4.8); Lymphocytes % (A) 12 %; MCH 32.2 pg (25.0-35.0); MCHC 31.2 g/dL (31.0-37.0); MCV 103.4 fL (80.0-100.0); Macrocytosis Slight; Mean Platelet Volume 8.9; Monocytes # (A) 0.1 k/uL (0-1.0); Monocytes % (A) 2 %; Neutrophils # (A) 4.1 k/uL (1.3-7.7); Neutrophils % (A) 83 %; Platelet Count 253 k/uL (150-450); Potassium 4.7 mmol/L (3.5-5.1); RBC 2.62 m/uL (3.80-5.40); WBC 4.9 k/uL (3.8-10.6)
[2021-12-17] MEDS: BUDESONIDE 1 MG/2 ML NEBU INHALATION SCH ×2 (07:49→19:22)
[2021-12-17] MEDS: IPRATROPIUM-ALBUTEROL 3 ML NEB INHALATION SCH ×4 (07:49→19:22)
[2021-12-17] MEDS: FORMOTEROL FUMARATE 20 MCG/2 ML NEBU INHALATION SCH ×2 (07:49→19:32)
[2021-12-17] MEDS: DEXMEDETOMIDINE/0.9% NACL(PMX) 400 MCG in EMPTY BAG 1 BAG IV SCH (08:30)
[2021-12-17] MEDS: PANTOPRAZOLE 40 MG/10 ML VIAL IV SCH (08:31)
[2021-12-17] MEDS: APIXABAN 5 MG TAB PO SCH ×2 (08:31→22:08)
[2021-12-17] MEDS: PIPERACILLIN-TAZOBACTAM 3.375 GM in SODIUM CHLORIDE 0.9% 100 ML IVPB SCH ×2 (08:31→22:28)
[2021-12-17] MEDS: methylPREDNISolone SOD SUCCI 40 MG/ML 1 ML VIAL IV SCH ×3 (08:31→16:30)
--- NOTE | 2021-12-17 09:07 | P.PN ---
Subjective Patient is seen in follow-up for acute kidney injury. Oliguric. Hemodialysis dependent. Oral intake is good. Blood pressure stable. Denies chest pain or shortness of breath. No active complaints. Scheduled for dialysis today. Vital signs are stable. General: Awake. No acute distress. HEENT: Head exam is unremarkable. LUNGS: Breath sounds decreased. HEART: Rate and Rhythm are regular. ABDOMEN: Soft, no distention. EXTREMITITES: Trace edema. Objective - Vital Signs Vital signs: Vital Signs Temp 97.8 F 12/17/21 08:49 Pulse 70 12/17/21 08:49 Resp 20 12/17/21 08:49 BP 158/89 12/17/21 08:49 Pulse Ox 98 12/17/21 08:49 FiO2 35 12/14/21 08:00 Intake & Output 12/16/21 12/17/21 12/17/21 18:59 06:59 18:59 Intake Total 0 Output Total 5 0 Balance -5 0 Weight 60.5 kg Intake: IV 0 0.9 0 Output: Urine 5 0 Other: Voiding Method Indwelling Catheter # Voids 1 0 # Bowel Movements 1 1 ABP, PAP, CO, CI - Last Documented Arterial Blood Pressure 117/54 - Labs CBC & Chem 7: 12/17/21 06:37 12/17/21 06:37 Labs: Abnormal Lab Results - Last 24 Hours (Table) 12/16/21 12/16/21 12/16/21 Range/Units 10:53 10:53 16:21 RBC 2.61 L (3.80-5.40) m/uL Hgb 8.7 L (11.4-16.0) gm/dL Hct 27.0 L (34.0-46.0) % MCV 103.6 H (80.0-100.0) fL Lymphocytes # 0.9 L (1.0-4.8) k/uL BUN 52 H (7-17) mg/dL Creatinine 3.00 H (0.52-1.04) mg/dL Glucose 103 H (74-99) mg/dL POC Glucose (mg/dL) 165 H (70-110) mg/dL Calcium 7.4 L (8.4-10.2) mg/dL 12/16/21 12/17/21 12/17/21 Range/Units 19:41 06:30 06:37 RBC 2.62 L (3.80-5.40) m/uL Hgb 8.4 L (11.4-16.0) gm/dL Hct 27.1 L (34.0-46.0) % MCV 103.4 H (80.0-100.0) fL Lymphocytes # 0.6 L (1.0-4.8) k/uL BUN (7-17) mg/dL Creatinine (0.52-1.04) mg/dL Glucose (74-99) mg/dL POC Glucose (mg/dL) 139 H 146 H (70-110) mg/dL Calcium (8.4-10.2) mg/dL 12/17/21 Range/Units 06:37 RBC (3.80-5.40) m/uL Hgb (11.4-16.0) gm/dL Hct (34.0-46.0) % MCV (80.0-100.0) fL Lymphocytes # (1.0-4.8) k/uL BUN 78 H (7-17) mg/dL Creatinine 5.29 H (0.52-1.04) mg/dL Glucose 144 H (74-99) mg/dL POC Glucose (mg/dL) (70-110) mg/dL Calcium 7.7 L (8.4-10.2) mg/dL Microbiology - Last 24 Hours (Table) 12/10/21 10:35 Blood Culture - Final Blood No Growth after 144 hours 12/10/21 10:59 Blood Culture - Final Blood No Growth after 144 hours Assessment and Plan Plan: Assessment: 1. Acute kidney injury secondary to ATN secondary to septic shock. Oliguric. Started on hemodialysis 12/21/2021. Baseline creatinine 1-1.3 from August and September 2021. 2. Septic shock secondary to E. coli UTI and aspiration pneumonia on antibiotics. 3. Left hydronephrosis. Appears to be chronic with atrophic left kidney. No interventions planned. 4. Chronic kidney disease stage IIIa secondary to nephrosclerosis/obx uropathy with solitary functioning kidney. Baseline creatinine 1-1.3. 5. Anemia of chronic kidney disease. On Aranesp. Iron replete. 6. Metabolic acidosis secondary to acute kidney injury. Improved postdialysis. 7. Hyperphosphatemia secondary to acute kidney injury. On PhosLo. Plan: Hemodialysis today. Maintain on Friday schedule. No response in urine output despite IV Lasix. Continue to monitor for renal recovery. No UA available. Patient is anuric. Follow-up serologies. Currently has femoral dialysis catheter. Patient remains oliguric. Will need permacath. Vascular surgery will be notified today. Outpatient dialysis to be set up by case management.
[2021-12-17 11:16] LABS: Glucose,Whole Blood 204 mg/dL (70-110)
--- NOTE | 2021-12-17 11:38 | P.PN ---
Subjective Progress Note Date: 12/17/21 Principal diagnosis: Acute kidney injury, respiratory failure. Patient was reevaluated today on 12/14/21, patient remains in the ICU, intubated and mechanically ventilated. She is on assist control rate of 22, tidal volume is 450 FiO2 35% and PEEP of 5.Patient is on Precedex at 0.3 mcg/kg per hour. Patient is awake, arousable, follows simple instructions, and her labs were r eviewed she had a relatively normal CBC WBC is 4.1 hemoglobin is 7.9. Basic metabolic profile is normal however her BUN is 56 creatinine 3.65, patient is scheduled to undergo hemodialysis again today. Chest x-ray showed mostly stable left basilar opacity consistent with infiltrate. Right side seems to be much clearer today. Urine cultures were positive for E. coli on admission. Otherwise the rest of the cultures including blood and sputum were negative so far. Patient remains on bronchodilators, she is also on methylprednisolone 60 mg IV push every 6 hours, and she is on Zosyn. Considering the patient is awake, arousable, and considering she is appropriate mentally, I recommended a short trial of pressure support and CPAP with a pressure support of 10 while I was at bedside. Checking on the patient with pressure support and CPAP mode of mechanical ventilation, and half an hour later patient continued to tolerate that quite well, and her weaning parameters look reasonable, went ahead and recommended extubating the patient. Patient was extubated uneventfully, placed on nasal cannula. Patient is to have hemodialysis today. And she was seen yesterday by urology for left sided hydronephrosis, again this is being addressed by urology on the case Reevaluated today on 12/15/21, a shunt remains in the ICU, she was extubated yesterday uneventfully. She is on 2 L nasal cannula, and her O2 sats is 94% patient is yet to receive hemodialysis today. But overall the wound. No cough no wheezing no shortness of breath. CBC is relatively unremarkable WBC has 5.4 hemoglobin 8.3 left lites are normal BUN is 61 creatinine 3.34. Chest x-ray showed chronic emphysematous change, left basilar infiltrate or atelectasis is noted I suspect it is bibasilar infiltrates. Left more so than right Reevaluated today on 12/16/21, patient remains in the ICU as an overflow, she tolerated the extubation over the last few days quite well, remains on 3 L nasal cannula, O2 sats is 95%, patient is not any distress, she is still undergoing hemodialysis for acute kidney injury. Patient has no fever, she is relatively asymptomatic, blood pressure is 143/78. WBC count is 5.9 hemoglobin 8.7 and electrolytes are normal BUN is 52 creatinine 3.0 Progress note dated 12/17/2021. 71-year-old female seen in the intensive care unit, room 251. She was admitted to the hospital on December 10, with acute kidney injury. She developed respiratory failure, required intubation, on December 11, and was successfully extubated on December 14. Currently, she is on 3 L of oxygen. She's getting saline at KVO. She's had hemodialysis for the last 5 days. A permanent dialysis catheter will be placed today. The patient is a patient who can be transferred out to the medical/surgical floor, without telemetry. She's currently on Zosyn for Escherichia coli urinary tract infection. White count 4.9, hemoglobin 8.4, hematocrit 27.1, and platelet count 253,000. Sodium 139, potassium 4.7, chlorides 102, CO2 23, anion gap 14, BUN 78, and creatinine 5.29. No chest x-ray noted. Objective - Vital Signs Vital signs: Vital Signs Temp 97.8 F 12/17/21 08:49 Pulse 70 12/17/21 08:49 Resp 20 12/17/21 08:49 BP 158/89 12/17/21 08:49 Pulse Ox 98 12/17/21 08:49 FiO2 35 12/14/21 08:00 Intake & Output 12/16/21 12/17/21 12/17/21 18:59 06:59 18:59 Intake Total 0 Output Total 5 0 Balance -5 0 Weight 60.5 kg Intake: IV 0 0.9 0 Output: Urine 5 0 Other: Voiding Method Indwelling Catheter # Voids 1 0 # Bowel Movements 1 1 ABP, PAP, CO, CI - Last Documented Arterial Blood Pressure 117/54 - Exam No acute distress, oriented 3. Sitting at the bedside, eating breakfast. Currently on 3 L. HEENT examination is grossly unremarkable. Neck supple. Full range of motion. No adenopathy thyromegaly or neck vein distention. Cardiovascular examination reveals regular rhythm rate. S1-S2 normal. No S3 or S4. No discernible murmur noted. Heart rate 90 bpm. Lungs reveal clear breath sounds. Breath sounds are equal bilaterally. No adventitious lung sounds including wheezes rhonchi or crackles. Saturations are 98%. Abdomen soft bowel sounds are heard. No masses or tenderness. Extremities are intact. No cyanosis clubbing or edema. Skin is without rash or lesion. Neurologic examination is brief but nonfocal. - Labs CBC & Chem 7: 12/17/21 06:37 12/17/21 06:37 Labs: Abnormal Lab Results - Last 24 Hours (Table) 12/16/21 12/16/21 12/17/21 Range/Units 16:21 19:41 06:30 RBC (3.80-5.40) m/uL Hgb (11.4-16.0) gm/dL Hct (34.0-46.0) % MCV (80.0-100.0) fL Lymphocytes # (1.0-4.8) k/uL BUN (7-17) mg/dL Creatinine (0.52-1.04) mg/dL Glucose (74-99) mg/dL POC Glucose (mg/dL) 165 H 139 H 146 H (70-110) mg/dL Calcium (8.4-10.2) mg/dL 12/17/21 12/17/21 12/17/21 Range/Units 06:37 06:37 11:14 RBC 2.62 L (3.80-5.40) m/uL Hgb 8.4 L (11.4-16.0) gm/dL Hct 27.1 L (34.0-46.0) % MCV 103.4 H (80.0-100.0) fL Lymphocytes # 0.6 L (1.0-4.8) k/uL BUN 78 H (7-17) mg/dL Creatinine 5.29 H (0.52-1.04) mg/dL Glucose 144 H (74-99) mg/dL POC Glucose (mg/dL) 204 H (70-110) mg/dL Calcium 7.7 L (8.4-10.2) mg/dL Microbiology - Last 24 Hours (Table) 12/10/21 10:35 Blood Culture - Final Blood No Growth after 144 hours 12/10/21 10:59 Blood Culture - Final Blood No Growth after 144 hours Assessment and Plan Assessment: Acute respiratory failure secondary to seizure-like activity, requiring intubation and mechanical ventilation, with successful extubation on 12/14/2021. Patient was intubated on 12/11/2021. Acute on chronic hypoxemic respiratory failure secondary to COPD, and acute diastolic CHF. Possible aspiration pneumonia. Acute Escherichia coli urinary tract infection. Chronic tobacco use. History of left lower extremity DVT. Chronic back pain. History of gastroesophageal reflux disease. Acute kidney injury, requiring daily hemodialysis. Plan: Plan dated 12/17/2021. The patient is seen, interviewed, and examined, and room 251. She remains on 3 L of oxygen. She's getting daily hemodialysis. A dialysis catheter will be placed today. She continues on Zosyn for Escherichia coli urinary tract infection, and possible aspiration pneumonia. Labs, x-rays, medications are reviewed. Prognosis is certainly guarded. We will continue follow the patient and make recommendations along the way. The patient could be considered for transfer out of the intensive care unit. Time with Patient: Greater than 30
[2021-12-17 15:03] LABS: C-ANCA <1:20 Titer (<1:20)
[2021-12-17 16:24] LABS: Glucose,Whole Blood 121 mg/dL (70-110)
[2021-12-17 20:22] LABS: Glucose,Whole Blood 220 mg/dL (70-110)
[2021-12-17 22:27] LABS: Glucose,Whole Blood 126 mg/dL (70-110)
[2021-12-18 01:38] LABS: Anti-DNA, DS unit <1.0 IU/mL; DNA Double-Stranded NEGATIVE (NEGATIVE)
[2021-12-18] MEDS: methylPREDNISolone SOD SUCCI 40 MG/ML 1 ML VIAL IV SCH ×2 (02:02→09:57)
--- NOTE | 2021-12-18 04:45 | P.PN ---
Subjective Progress Note Date: 12/17/21 This is a 71-year-old female who was recently admitted with change in mental status and increased hypoxia and shortness of breath and being closely monitored. Multiple medical consultations following and patient had worsening hypoxia and abnormal ABG and brought to the ICU and patient was ultimately pl aced on mechanical vent. Patient is maintained on IV Zosyn and also emergently received a temporary dialysis catheter and is undergoing hemodialysis with nephrology following closely. Patient's kidney functions worsened and emergently started on dialysis. Patient is on mechanical vent with FiO2 of 35% with PEEP of 5. Patient was initiated on emergent dialysis last night and receiving again today. 12/13/2021 Patient is seen and evaluated in follow-up in the ICU with multiple medical consultations following. Patient continues on mechanical vent under sedation FiO2 is 35% with a PEEP of 5. Chest x-ray today shows chronic emphysematous changes with small to tiny bilateral pleural effusions and left basilar acute infiltrate and/or atelectasis noted. Patient also underwent EEG and was a bnormal with periods of suppression suggesting generalized cerebral dysfunction that can be seen in encephalopathy or medication induced. No epileptiform discharges noted. Patient continues on hemodialysis, sodium bicarb drip with nephrology following closely. Patient also continues on DuoNeb treatments along with IV steroids and will continue. Patient is on antibiotics and sputum cultures pending and preliminary cultures of blood thus far negative. Urine culture showed E. coli. 12/14/2021 Patient is seen in follow-up this morning continues on mechanical vent in the ICU with an FiO2 of 35% and PEEP is 5. Multiple medical consultations following including nephrology and patient has been receiving hemodialysis daily. Patient is continued on DuoNeb treatments along with subcutaneous Lovenox, IV steroids high-dose, Zosyn, and propofol is currently off. Attempting sedation holidays with possibly weaning. Rest x-ray this morning shows no change from one day prior with left basilar airspace opacification and possible left pleural effusion. Urology has been consulted for nephrosclerosis with history of left renal atrophy with severe hydrocele is noted of the left kidney and CT abdomen pelvis without contrast is ordered. Recommending to continue with indwelling Santos catheter. Cardiology also consulted for the elevated troponins recommend to continue with current cardiac medications and continue telemetry monitoring. The pressures are soft although not requiring pressor support at this time. Blood cultures have been negative and patient's urine culture was E. coli gram stained sputum culture currently pending at this time. Per nursing staff plan is for extubation possibly today. 12/15/2021 Patient is seen today and is on 2L via NC tolerating. Extubated yesterday. Patient is to receive dialysis again today with nephrology following. Discussion about possible outpatient dialysis being needed as patient is not producing urine. To continue over the next few days and monitor closely. Maintained on breathing treatments along with IV steroids and antibiotics. Patient is in the ICU although is a down grade to the med surg unit. Afebrile and denies worsening shortness of breath or chest pains. Tolerating diet. 12/16/2021 Patient is seen in follow up and continuing on 2L via nc. Patient is currently on hemodialysis and will need to discuss with nephrology about outpatient dialysis. Patient to continue with duonebs and IS use. Encouraged increased activity as tolerated and will have PT/OT evaluate. Encourage oral intake, renal diet. Patient is continued on IV antibiotics as well. Patient to receive lasix today. Awaiting med surg bed. Afebrile and denies worsening shortness of breath or chest pains. Tolerating diet. 12/17/2021 Patient is seen today in the ICU and awaiting a down grade to selective. Receiving hemodialysis today although blood pressures are uncontrolled and mostly ultrafiltration today. Plan is for permacath placement in the am with vascular surgery. Continues on IV steroids and duonebs and will continue. Wean Fi02 as tolerated and currently on 2 L via NC. Afebrile and denies chest pain or worsening shortness of breath. Encouraged oral intake and increased activity as tolerated. PT/OT to follow for possible ECF. All medications have been reviewed Active Medications Acetaminophen (Acetaminophen Tab 325 Mg Tab) 650 mg PO Q6HR PRN PRN Reason: Mild Pain or Fever > 100.5 Last Admin: 12/13/21 00:14 Dose: 650 mg Albuterol/Ipratropium (Ipratropium-Albuterol 3 Ml Neb) 3 ml INHALATION RT-QID [facility] Last Admin: 12/17/21 19:22 Dose: 3 ml Albuterol/Ipratropium (Ipratropium-Albuterol 3 Ml Neb) 3 ml INHALATION RT-Q4H PRN PRN Reason: Shortness Of Breath Or Wheezing Last Admin: 12/13/21 23:52 Dose: 3 ml Apixaban (Apixaban 5 Mg Tab) 5 mg PO BID [facility]; Protocol Last Admin: 12/17/21 22:08 Dose: Not Given Budesonide (Budesonide 1 Mg/2 Ml Nebu) 1 mg INHALATION RT-BID [facility] Last Admin: 12/17/21 19:22 Dose: 1 mg Calcium Acetate (Calcium Acetate 667 Mg Tab) 667 mg PO TID-W/MEALS [facility] Last Admin: 12/17/21 16:30 Dose: 667 mg Darbepoetin Michele (Darbepoetin Michele 60 Mcg/0.3 Ml Syringe) 60 mcg SQ Q7D [facility] Last Admin: 12/14/21 15:45 Dose: 60 mcg Dextrose/Water (Dextrose 50% Syringe 50 Ml) 25 ml IVP PER PROTOCOL PRN; Protocol PRN Reason: Hypoglycemia Dextrose/Water (Dextrose 50% Syringe 50 Ml) 50 ml IVP PER PROTOCOL PRN; Protocol PRN Reason: Hypoglycemia Formoterol Fumarate (Formoterol Fumarate 20 Mcg/2 Ml Nebu) 20 mcg INHALATION RT-BID [facility] Last Admin: 12/17/21 19:32 Dose: 20 mcg Piperacillin Sod/Tazobactam (Sod 3.375 gm/ Sodium Chloride) 100 mls @ 25 mls/hr IVPB Q12HR [facility]; Protocol Last Admin: 12/17/21 22:28 Dose: 25 mls/hr Dexmedetomidine HCl 400 mcg/ (IV Solution) 100 mls @ 3.145 mls/hr IV .Q24H [facility]; Protocol Last Admin: 12/17/21 08:30 Dose: Not Given Lactated Ringer's (Lactated Ringers) 1,000 mls @ 20 mls/hr IV .Q24H [facility] Insulin Aspart (Insulin Aspart (Novolog) 100 Unit/Ml Vial) 0 unit SQ ACHS [facility]; Protocol Last Admin: 12/17/21 22:27 Dose: Not Given Methylprednisolone Sodium Succinate (Methylprednisolone Sod Succi 40 Mg/Ml 1 Ml Vial) 40 mg IV Q8HR [facility] Last Admin: 12/18/21 02:02 Dose: 40 mg Naloxone HCl (Naloxone 0.4 Mg/Ml 1 Ml Vial) 0.2 mg IV Q2M PRN PRN Reason: Opioid Reversal Pantoprazole Sodium (Pantoprazole 40 Mg/10 Ml Vial) 40 mg IV DAILY [facility] Last Admin: 12/17/21 08:31 Dose: 40 mg PHYSICAL EXAMINATION: GENERAL: The patient is awake, alert and oriented x2. Elderly female HEENT: Pupils are round and equally reacting to light. EOMI. no scleral icterus. No conjunctival pallor. Normocephalic, atraumatic. No pharyngeal erythema. No thyromegaly. CARDIOVASCULAR: S1 and S2 muffled PULMONARY: diminished breath sounds bilaterally with scattered rhonchi and crackles noted. ABDOMEN: soft. Nontender on exam. non-distended, normoactive bowel sounds. No palpable organomegaly. MUSCULOSKELETAL: No joint swelling or deformity. EXTREMITIES: No cyanosis, clubbing, or pedal edema. NEUROLOGICAL: Gross neurological examination did not reveal any focal deficits. Diffuse weakness SKIN: No rashes. Assessment: Change in mental status, acute metabolic encephalopathy, improving Acute on chronic hypoxic respiratory failure requiring mechanical ventilation on 12/11/2021, extubated on 12/14/2021 Congestive heart failure and chronic obstructive pulmonary disease, acute exacerbation Acute renal failure requiring emergent dialysis catheter placement and hemodialysis Troponin indeterminate at 0.119 Degenerative joint disease History of DVT Gastroesophageal reflux disease Osteoarthritis Chronic bullous emphysema history Former smoker of 40+ years GI prophylaxis DVT prophylaxis Full code Plan: Recommend to continue with current medications and management and continues in the ICU with multiple medical consultations following. Patient is a down grade to med-surg once a bed becomes available. Patient was just extubated successfully and currently maintained on 2L via NC. Patient is also on h emodialysis daily for now. Patient is receiving IV antibiotics and will continue along with IV steroids and DuoNeb treatments. Plan is for permacath placement with Dr. Jesus tomorrow. Recommend labs in the a.m. physical therapy to work with the patient and plan for possible ECF. Case management to arrange outpatient dialysis. Due to multiple complex medical issues, prognosis is extremely guarded. The impression and plan of care has been dictated as a scribe by Carmen Yeboah, nurse practitioner as directed. Dr. Get MD I have performed a history and examination and MDM of this patient, discussed the same with the dictator, and has been documented as a scribe. Based on total visit time, I have performed more than 50% of the visit. Any additional findings or plans will be noted. Objective - Vital Signs Vital signs: Vital Signs Temp 97.8 F 12/17/21 08:49 Pulse 70 12/17/21 08:49 Resp 20 12/17/21 08:49 BP 158/89 12/17/21 08:49 Pulse Ox 98 12/17/21 08:49 FiO2 35 12/14/21 08:00 Intake & Output 12/16/21 12/17/21 12/17/21 18:59 06:59 18:59 Intake Total 0 Output Total 5 0 Balance -5 0 Weight 60.5 kg Intake: IV 0 0.9 0 Output: Urine 5 0 Other: Voiding Method Indwelling Catheter # Voids 1 0 # Bowel Movements 1 1 ABP, PAP, CO, CI - Last Documented Arterial Blood Pressure 117/54 - Labs CBC & Chem 7: 12/17/21 06:37 12/17/21 06:37 Labs: Abnormal Lab Results - Last 24 Hours (Table) 12/16/21 12/16/21 12/16/21 Range/Units 10:53 10:53 16:21 RBC 2.61 L (3.80-5.40) m/uL Hgb 8.7 L (11.4-16.0) gm/dL Hct 27.0 L (34.0-46.0) % MCV 103.6 H (80.0-100.0) fL Lymphocytes # 0.9 L (1.0-4.8) k/uL BUN 52 H (7-17) mg/dL Creatinine 3.00 H (0.52-1.04) mg/dL Glucose 103 H (74-99) mg/dL POC Glucose (mg/dL) 165 H (70-110) mg/dL Calcium 7.4 L (8.4-10.2) mg/dL 12/16/21 12/17/21 12/17/21 Range/Units 19:41 06:30 06:37 RBC 2.62 L (3.80-5.40) m/uL Hgb 8.4 L (11.4-16.0) gm/dL Hct 27.1 L (34.0-46.0) % MCV 103.4 H (80.0-100.0) fL Lymphocytes # 0.6 L (1.0-4.8) k/uL BUN (7-17) mg/dL Creatinine (0.52-1.04) mg/dL Glucose (74-99) mg/dL POC Glucose (mg/dL) 139 H 146 H (70-110) mg/dL Calcium (8.4-10.2) mg/dL 12/17/21 Range/Units 06:37 RBC (3.80-5.40) m/uL Hgb (11.4-16.0) gm/dL Hct (34.0-46.0) % MCV (80.0-100.0) fL Lymphocytes # (1.0-4.8) k/uL BUN 78 H (7-17) mg/dL Creatinine 5.29 H (0.52-1.04) mg/dL Glucose 144 H (74-99) mg/dL POC Glucose (mg/dL) (70-110) mg/dL Calcium 7.7 L (8.4-10.2) mg/dL Microbiology - Last 24 Hours (Table) 12/10/21 10:35 Blood Culture - Final Blood No Growth after 144 hours 12/10/21 10:59 Blood Culture - Final Blood No Growth after 144 hours
[2021-12-18] MEDS: APIXABAN 5 MG TAB PO SCH ×2 (06:38→20:21)
[2021-12-18] MEDS: INSULIN ASPART (NovoLOG) 100 UNIT/ML VIAL SQ SCH ×4 (06:42→20:21)
[2021-12-18 06:43] LABS: Glucose,Whole Blood 137 mg/dL (70-110)
[2021-12-18] MEDS: CALCIUM ACETATE 667 MG TAB PO SCH ×3 (06:43→16:58)
[2021-12-18] MEDS: IPRATROPIUM-ALBUTEROL 3 ML NEB INHALATION SCH ×4 (07:42→19:13)
[2021-12-18] MEDS: BUDESONIDE 1 MG/2 ML NEBU INHALATION SCH (07:42)
[2021-12-18] MEDS: FORMOTEROL FUMARATE 20 MCG/2 ML NEBU INHALATION SCH (07:42)
[2021-12-18 07:46] LABS: Basophils % (A) 0 %; Eosinophils % (A) 0 %; HCT 26.7 % (34.0-46.0); HGB 8.3 gm/dL (11.4-16.0); Hypochromasia Marked; Lymphocytes # (A) 0.5 k/uL (1.0-4.8); Lymphocytes % (A) 12 %; MCH 32.1 pg (25.0-35.0); MCHC 31.2 g/dL (31.0-37.0); MCV 102.8 fL (80.0-100.0); Macrocytosis Slight; Mean Platelet Volume 9.9; Monocytes # (A) 0.1 k/uL (0-1.0); Monocytes % (A) 2 %; Neutrophils # (A) 3.7 k/uL (1.3-7.7); Neutrophils % (A) 81 %; Platelet Count 261 k/uL (150-450); RDW 14.7 % (11.5-15.5); WBC 4.6 k/uL (3.8-10.6)
[2021-12-18 07:49] LABS: Calcium 7.3 mg/dL (8.4-10.2); Potassium 4.5 mmol/L (3.5-5.1)
[2021-12-18] MEDS: LACTATED RINGERS 1,000 ML IV SCH ×2 (09:06→18:14)
[2021-12-18] MEDS: DEXMEDETOMIDINE/0.9% NACL(PMX) 400 MCG in EMPTY BAG 1 BAG IV SCH (09:09)
[2021-12-18] MEDS: PIPERACILLIN-TAZOBACTAM 3.375 GM in SODIUM CHLORIDE 0.9% 100 ML IVPB SCH ×2 (09:57→20:21)
[2021-12-18] MEDS: PANTOPRAZOLE 40 MG/10 ML VIAL IV SCH (09:57)
--- NOTE | 2021-12-18 11:00 | P.PN ---
Subjective Progress Note Date: 12/18/21 Principal diagnosis: Acute kidney injury, respiratory failure. Patient was reevaluated today on 12/14/21, patient remains in the ICU, intubated and mechanically ventilated. She is on assist control rate of 22, tidal volume is 450 FiO2 35% and PEEP of 5.Patient is on Precedex at 0.3 mcg/kg per hour. Patient is awake, arousable, follows simple instructions, and her labs were r eviewed she had a relatively normal CBC WBC is 4.1 hemoglobin is 7.9. Basic metabolic profile is normal however her BUN is 56 creatinine 3.65, patient is scheduled to undergo hemodialysis again today. Chest x-ray showed mostly stable left basilar opacity consistent with infiltrate. Right side seems to be much clearer today. Urine cultures were positive for E. coli on admission. Otherwise the rest of the cultures including blood and sputum were negative so far. Patient remains on bronchodilators, she is also on methylprednisolone 60 mg IV push every 6 hours, and she is on Zosyn. Considering the patient is awake, arousable, and considering she is appropriate mentally, I recommended a short trial of pressure support and CPAP with a pressure support of 10 while I was at bedside. Checking on the patient with pressure support and CPAP mode of mechanical ventilation, and half an hour later patient continued to tolerate that quite well, and her weaning parameters look reasonable, went ahead and recommended extubating the patient. Patient was extubated uneventfully, placed on nasal cannula. Patient is to have hemodialysis today. And she was seen yesterday by urology for left sided hydronephrosis, again this is being addressed by urology on the case Reevaluated today on 12/15/21, a shunt remains in the ICU, she was extubated yesterday uneventfully. She is on 2 L nasal cannula, and her O2 sats is 94% patient is yet to receive hemodialysis today. But overall the wound. No cough no wheezing no shortness of breath. CBC is relatively unremarkable WBC has 5.4 hemoglobin 8.3 left lites are normal BUN is 61 creatinine 3.34. Chest x-ray showed chronic emphysematous change, left basilar infiltrate or atelectasis is noted I suspect it is bibasilar infiltrates. Left more so than right Reevaluated today on 12/16/21, patient remains in the ICU as an overflow, she tolerated the extubation over the last few days quite well, remains on 3 L nasal cannula, O2 sats is 95%, patient is not any distress, she is still undergoing hemodialysis for acute kidney injury. Patient has no fever, she is relatively asymptomatic, blood pressure is 143/78. WBC count is 5.9 hemoglobin 8.7 and electrolytes are normal BUN is 52 creatinine 3.0 Progress note dated 12/17/2021. 71-year-old female seen in the intensive care unit, room 251. She was admitted to the hospital on December 10, with acute kidney injury. She developed respiratory failure, required intubation, on December 11, and was successfully extubated on December 14. Currently, she is on 3 L of oxygen. She's getting saline at KVO. She's had hemodialysis for the last 5 days. A permanent dialysis catheter will be placed today. The patient is a patient who can be transferred out to the medical/surgical floor, without telemetry. She's currently on Zosyn for Escherichia coli urinary tract infection. White count 4.9, hemoglobin 8.4, hematocrit 27.1, and platelet count 253,000. Sodium 139, potassium 4.7, chlorides 102, CO2 23, anion gap 14, BUN 78, and creatinine 5.29. No chest x-ray noted. Progress note dated 12/18/2021. 71-year-old female seen in the intensive care unit, room 251. She was admitted to the hospital December 10, with acute kidney injury. She developed respiratory failure, and required intubation on December 11, and was successfully extubated on 12/14/2021. Currently, she is on 3 L of oxygen. She's not receiving any IV fluids. She is to receive a permanent hemodialysis catheter today. She had hemodialysis yesterday. Not sure about hemodialysis today. White count 4.6, hemoglobin 8.3, hematocrit 26.7, and platelet count 261,000. Sodium 136, potassium 4.5, chlorides 103, CO2 22, anion gap 11, BUN 48, and creatinine 3.32. Urine, on December 10 was positive for Escherichia coli. No recent chest x-ray to report. Objective - Vital Signs Vital signs: Vital Signs Temp 98 F 12/18/21 08:00 Pulse 88 12/18/21 08:10 Resp 22 12/18/21 08:00 BP 176/75 12/18/21 08:00 Pulse Ox 94 L 12/18/21 08:00 FiO2 35 12/14/21 08:00 Intake & Output 12/17/21 12/18/21 12/18/21 18:59 06:59 18:59 Intake Total 1020 120 Balance 1020 120 Weight 62 kg Intake: IV 220 120 0.9 120 120 Piperacillin-Tazobactam 3 100 .375 gm In Sodium Chloride 0.9% 100 ml @ 25 mls/hr IVPB Q12HR [facility] Rx #:[id number] Oral 800 Other: # Voids 0 # Bowel Movements 1 ABP, PAP, CO, CI - Last Documented Arterial Blood Pressure 117/54 - Exam No acute distress, oriented 3. Laying, in bed. Currently on 3 L. HEENT examination is grossly unremarkable. Neck supple. Full range of motion. No adenopathy thyromegaly or neck vein distention. Cardiovascular examination reveals regular rhythm rate. S1-S2 normal. No S3 or S4. No discernible murmur noted. Heart rate 88 bpm. Lungs reveal clear breath sounds. Breath sounds are equal bilaterally. No adventitious lung sounds including wheezes rhonchi or crackles. Saturations are 94 %. Abdomen soft bowel sounds are heard. No masses or tenderness. Extremities are intact. No cyanosis clubbing or edema. Skin is without rash or lesion. Neurologic examination is brief but nonfocal. - Labs CBC & Chem 7: 12/18/21 06:44 12/18/21 06:44 Labs: Abnormal Lab Results - Last 24 Hours (Table) 12/17/21 12/17/21 12/17/21 Range/Units 11:14 16:23 20:21 RBC (3.80-5.40) m/uL Hgb (11.4-16.0) gm/dL Hct (34.0-46.0) % MCV (80.0-100.0) fL Lymphocytes # (1.0-4.8) k/uL Sodium (137-145) mmol/L BUN (7-17) mg/dL Creatinine (0.52-1.04) mg/dL Glucose (74-99) mg/dL POC Glucose (mg/dL) 204 H 121 H 220 H (70-110) mg/dL Calcium (8.4-10.2) mg/dL 12/17/21 12/18/2112/18/22 Range/Units 22:26 06:42 06:44 RBC 2.60 L (3.80-5.40) m/uL Hgb 8.3 L (11.4-16.0) gm/dL Hct 26.7 L (34.0-46.0) % MCV 102.8 H (80.0-100.0) fL Lymphocytes # 0.5 L (1.0-4.8) k/uL Sodium (137-145) mmol/L BUN (7-17) mg/dL Creatinine (0.52-1.04) mg/dL Glucose (74-99) mg/dL POC Glucose (mg/dL) 126 H 137 H (70-110) mg/dL Calcium (8.4-10.2) mg/dL 12/18/21 Range/Units 06:44 RBC (3.80-5.40) m/uL Hgb (11.4-16.0) gm/dL Hct (34.0-46.0) % MCV (80.0-100.0) fL Lymphocytes # (1.0-4.8) k/uL Sodium 136 L (137-145) mmol/L BUN 48 H (7-17) mg/dL Creatinine 3.32 H (0.52-1.04) mg/dL Glucose 126 H (74-99) mg/dL POC Glucose (mg/dL) (70-110) mg/dL Calcium 7.3 L (8.4-10.2) mg/dL Assessment and Plan Assessment: Acute respiratory failure secondary to seizure-like activity, requiring intubation and mechanical ventilation, with successful extubation on 12/14/2021. Patient was intubated on 12/11/2021. Acute on chronic hypoxemic respiratory failure secondary to COPD, and acute diastolic CHF. Possible aspiration pneumonia. Acute Escherichia coli urinary tract infection. Chronic tobacco use. History of left lower extremity DVT. Chronic back pain. History of gastroesophageal reflux disease. Acute kidney injury, requiring daily hemodialysis. Plan: Plan dated 12/17/2021. The patient is seen, interviewed, and examined, and room 251. She remains on 3 L of oxygen. She's getting daily hemodialysis. A dialysis catheter will be placed today. She continues on Zosyn for Escherichia coli urinary tract infection, and possible aspiration pneumonia. Labs, x-rays, medications are reviewed. Prognosis is certainly guarded. We will continue follow the patient and make recommendations along the way. The patient could be considered for transfer out of the intensive care unit. Plan dated 12/18/2021. The patient will apparently receive a permanent hemodialysis catheter today. She is on 3 L. No IV fluids. Labs, x-rays, and medications are reviewed. She remains on updrafts, she also remains on Zosyn. Corticosteroids can be discontinued. Additional recommendations and suggestions are forthcoming. The patient's budesonide and formoterol can be discontinued in favor of Symbicort. The patient continues on albuterol sulfate, and ipratropium bromide. Time with Patient: Less than 30
--- NOTE | 2021-12-18 11:00 | P.PN ---
Subjective Progress Note Date: 12/18/21 Principal diagnosis: Hypertension The patient is a pleasant 71-year-old female patient was admitted to the hospital with acute hypoxic respiratory failure secondary to seizure kind of activities and subsequently she was intubated and then extubated. We involved in the care of the patient for the management of hypertension and also for elevated troponin. Conservative medical approach was advised. The patient underwent an echo which revealed normal left ventricular systolic function was no significant valvular abnormalities. December 182021 The patient was seen this morning. She is asymptomatic from the cardiac standpoint. She is hypertensive with a systolic pressure above 170 mmHg. I'm going to start the patient on amlodipine at 2.5 mg by mouth daily. Objective - Vital Signs Vital signs: Vital Signs Temp 98 F 12/18/21 08:00 Pulse 88 12/18/21 08:10 Resp 12/18/21 08:00 BP 176/75 12/18/21 08:00 Pulse Ox 94 L 12/18/21 08:00 FiO2 35 12/14/21 08:00 Intake & Output 12/17/21 12/18/21 12/18/21 18:59 06:59 18:59 Intake Total 1020 120 Balance 1020 120 Weight 62 kg Intake: IV 220 120 0.9 120 120 Piperacillin-Tazobactam 3 100 .375 gm In Sodium Chloride 0.9% 100 ml @ 25 mls/hr IVPB Q12HR [facility] Rx #:[id number] Oral 800 Other: # Voids 0 # Bowel Movements 1 ABP, PAP, CO, CI - Last Documented Arterial Blood Pressure 117/54 - Constitutional General appearance: Present: no acute distress - Respiratory Respiratory: bilateral: CTA - Cardiovascular Rhythm: regular Abnormal Heart Sounds: Present: systolic murmur - Labs CBC & Chem 7: 12/18/21 06:44 12/18/21 06:44 Labs: Abnormal Lab Results - Last 24 Hours (Table) 12/17/21 12/17/21 12/17/21 Range/Units 11:14 16:23 20:21 RBC (3.80-5.40) m/uL Hgb (11.4-16.0) gm/dL Hct (34.0-46.0) % MCV (80.0-100.0) fL Lymphocytes # (1.0-4.8) k/uL Sodium (137-145) mmol/L BUN (7-17) mg/dL Creatinine (0.52-1.04) mg/dL Glucose (74-99) mg/dL POC Glucose (mg/dL) 204 H 121 H 220 H (70-110) mg/dL Calcium (8.4-10.2) mg/dL 12/17/21 12/18/21 12/18/21 Range/Units 22:26 06:42 06:44 RBC 2.60 L (3.80-5.40) m/uL Hgb 8.3 L (11.4-16.0) gm/dL Hct 26.7 L (34.0-46.0) % MCV 102.8 H (80.0-100.0) fL Lymphocytes # 0.5 L (1.0-4.8) k/uL Sodium (137-145) mmol/L BUN (7-17) mg/dL Creatinine (0.52-1.04) mg/dL Glucose (74-99) mg/dL POC Glucose (mg/dL) 126 H 137 H (70-110) mg/dL Calcium (8.4-10.2) mg/dL 12/18/21 Range/Units 06:44 RBC (3.80-5.40) m/uL Hgb (11.4-16.0) gm/dL Hct (34.0-46.0) % MCV (80.0-100.0) fL Lymphocytes # (1.0-4.8) k/uL Sodium 136 L (137-145) mmol/L BUN 48 H (7-17) mg/dL Creatinine 3.32 H (0.52-1.04) mg/dL Glucose 126 H (74-99) mg/dL POC Glucose (mg/dL) (70-110) mg/dL Calcium 7.3 L (8.4-10.2) mg/dL Assessment and Plan Assessment: Assessment Acute hypoxic respiratory failure which has resolved Elevated troponin/evidence of myocardial injury was no evidence of ischemia Hypertension History of DVT Plan #1 continue the current medical regimen #2 add amlodipine to the current medical regimen #3 follow-up with the patient
[2021-12-18 11:21] LABS: Glucose,Whole Blood 134 mg/dL (70-110)
--- NOTE | 2021-12-18 11:26 | P.PN ---
Subjective Patient is seen in follow-up for acute kidney injury. Oliguric. Hemodialysis dependent. Oral intake is good. Blood pressure on the higher side. Denies chest pain or shortness of breath. No active complaints. Scheduled for permacath today. Vital signs are stable. Blood pressure on the higher side. General: Awake. No acute distress. HEENT: Head exam is unremarkable. LUNGS: Breath sounds decreased. HEART: Rate and Rhythm are regular. ABDOMEN: Soft, no distention. EXTREMITITES: Trace edema. Objective - Vital Signs Vital signs: Vital Signs Temp 98 F 12/18/21 08:00 Pulse 85 12/18/21 11:09 Resp 22 12/18/21 08:00 BP 176/75 12/18/21 08:00 Pulse Ox 94 L 12/18/21 08:00 FiO2 35 12/14/21 08:00 Intake & Output 12/17/21 12/18/21 12/18/21 18:59 06:59 18:59 Intake Total 1020 120 Balance 1020 120 Weight 62 kg Intake: IV 220 120 0.9 120 120 Piperacillin-Tazobactam 3 100 .375 gm In Sodium Chloride 0.9% 100 ml @ 25 mls/hr IVPB Q12HR [facility] Rx #:[id number] Oral 800 Other: # Voids 0 # Bowel Movements 1 ABP, PAP, CO, CI - Last Documented Arterial Blood Pressure 117/54 - Labs CBC & Chem 7: 12/18/21 06:44 12/18/21 06:44 Labs: Abnormal Lab Results - Last 24 Hours (Table) 12/17/21 12/17/21 12/17/21 Range/Units 16:23 20:21 22:26 RBC (3.80-5.40) m/uL Hgb (11.4-16.0) gm/dL Hct (34.0-46.0) % MCV (80.0-100.0) fL Lymphocytes # (1.0-4.8) k/uL Sodium (137-145) mmol/L BUN (7-17) mg/dL Creatinine (0.52-1.04) mg/dL Glucose (74-99) mg/dL POC Glucose (mg/dL) 121 H 220 H 126 H (70-110) mg/dL Calcium (8.4-10.2) mg/dL 12/18/21 12/18/21 12/18/21 Range/Units 06:42 06:44 06:44 RBC 2.60 L (3.80-5.40) m/uL Hgb 8.3 L (11.4-16.0) gm/dL Hct 26.7 L (34.0-46.0) % MCV 102.8 H (80.0-100.0) fL Lymphocytes # 0.5 L (1.0-4.8) k/uL Sodium 136 L (137-145) mmol/L BUN 48 H (7-17) mg/dL Creatinine 3.32 H (0.52-1.04) mg/dL Glucose 126 H (74-99) mg/dL POC Glucose (mg/dL) 137 H (70-110) mg/dL Calcium 7.3 L (8.4-10.2) mg/dL 12/18/21 Range/Units 11:19 RBC (3.80-5.40) m/uL Hgb (11.4-16.0) gm/dL Hct (34.0-46.0) % MCV (80.0-100.0) fL Lymphocytes # (1.0-4.8) k/uL Sodium (137-145) mmol/L BUN (7-17) mg/dL Creatinine (0.52-1.04) mg/dL Glucose (74-99) mg/dL POC Glucose (mg/dL) 134 H (70-110) mg/dL Calcium (8.4-10.2) mg/dL Assessment and Plan Plan: Assessment: 1. Acute kidney injury secondary to ATN secondary to septic shock. Oliguric. Started on hemodialysis 12/21/2021. Baseline creatinine 1-1.3 from August and September 2021. 2. Septic shock secondary to E. coli UTI and aspiration pneumonia on antibiotics. 3. Left hydronephrosis. Appears to be chronic with atrophic left kidney. No interventions planned. 4. Chronic kidney disease stage IIIa secondary to nephrosclerosis/obx uropathy with solitary functioning kidney. Baseline creatinine 1-1.3. 5. Anemia of chronic kidney disease. On Aranesp. Iron replete. 6. Metabolic acidosis secondary to acute kidney injury. Improved postdialysis. 7. Hyperphosphatemia secondary to acute kidney injury. On PhosLo. Plan: Hemodialysis today. Maintain on Friday schedule. No response in urine output despite IV Lasix. Continue to monitor for renal recovery. No UA available. Patient is anuric. Follow-up serologies - negative so far. Permacath to be placed today. Femoral catheter will be discontinued. Outpatient dialysis to be set up by case management. Add amlodipine 5 mg once daily and hydralazine 25 mg 3 times daily - hold for systolic blood pressure less than 120.
--- NOTE | 2021-12-18 13:55 | P.PN ---
Subjective Progress Note Date: 12/18/21 This is a 71-year-old female who was recently admitted with change in mental status and increased hypoxia and shortness of breath and being closely monitored. Multiple medical consultations following and patient had worsening hypoxia and abnormal ABG and brought to the ICU and patient was ultimately pl aced on mechanical vent. Patient is maintained on IV Zosyn and also emergently received a temporary dialysis catheter and is undergoing hemodialysis with nephrology following closely. Patient's kidney functions worsened and emergently started on dialysis. Patient is on mechanical vent with FiO2 of 35% with PEEP of 5. Patient was initiated on emergent dialysis last night and receiving again today. 12/13/2021 Patient is seen and evaluated in follow-up in the ICU with multiple medical consultations following. Patient continues on mechanical vent under sedation FiO2 is 35% with a PEEP of 5. Chest x-ray today shows chronic emphysematous changes with small to tiny bilateral pleural effusions and left basilar acute infiltrate and/or atelectasis noted. Patient also underwent EEG and was a bnormal with periods of suppression suggesting generalized cerebral dysfunction that can be seen in encephalopathy or medication induced. No epileptiform discharges noted. Patient continues on hemodialysis, sodium bicarb drip with nephrology following closely. Patient also continues on DuoNeb treatments along with IV steroids and will continue. Patient is on antibiotics and sputum cultures pending and preliminary cultures of blood thus far negative. Urine culture showed E. coli. 12/14/2021 Patient is seen in follow-up this morning continues on mechanical vent in the ICU with an FiO2 of 35% and PEEP is 5. Multiple medical consultations following including nephrology and patient has been receiving hemodialysis daily. Patient is continued on DuoNeb treatments along with subcutaneous Lovenox, IV steroids high-dose, Zosyn, and propofol is currently off. Attempting sedation holidays with possibly weaning. Rest x-ray this morning shows no change from one day prior with left basilar airspace opacification and possible left pleural effusion. Urology has been consulted for nephrosclerosis with history of left renal atrophy with severe hydrocele is noted of the left kidney and CT abdomen pelvis without contrast is ordered. Recommending to continue with indwelling Santos catheter. Cardiology also consulted for the elevated troponins recommend to continue with current cardiac medications and continue telemetry monitoring. The pressures are soft although not requiring pressor support at this time. Blood cultures have been negative and patient's urine culture was E. coli gram stained sputum culture currently pending at this time. Per nursing staff plan is for extubation possibly today. 12/15/2021 Patient is seen today and is on 2L via NC tolerating. Extubated yesterday. Patient is to receive dialysis again today with nephrology following. Discussion about possible outpatient dialysis being needed as patient is not producing urine. To continue over the next few days and monitor closely. Maintained on breathing treatments along with IV steroids and antibiotics. Patient is in the ICU although is a down grade to the med surg unit. Afebrile and denies worsening shortness of breath or chest pains. Tolerating diet. 12/16/2021 Patient is seen in follow up and continuing on 2L via nc. Patient is currently on hemodialysis and will need to discuss with nephrology about outpatient dialysis. Patient to continue with duonebs and IS use. Encouraged increased activity as tolerated and will have PT/OT evaluate. Encourage oral intake, renal diet. Patient is continued on IV antibiotics as well. Patient to receive lasix today. Awaiting med surg bed. Afebrile and denies worsening shortness of breath or chest pains. Tolerating diet. 12/17/2021 Patient is seen today in the ICU and awaiting a down grade to selective. Receiving hemodialysis today although blood pressures are uncontrolled and mostly ultrafiltration today. Plan is for permacath placement in the am with vascular surgery. Continues on IV steroids and duonebs and will continue. Wean Fi02 as tolerated and currently on 2 L via NC. Afebrile and denies chest pain or worsening shortness of breath. Encouraged oral intake and increased activity as tolerated. PT/OT to follow for possible ECF. 12/18/2021 Patient is seen and evaluated in follow-up with nephrology following closely. Patient is scheduled for permacath placement today with Dr. Jesus which is currently pending. Patient is continued on Zosyn and steroids have been discontinued. Patient also continues with DuoNeb treatments and will continue. Patient is on 2-3 L via nasal cannula with oxygen saturations of 94%. Hemoglobin stable today at 8.3, kidney function slightly improved with a BUN of 3.32 and closely monitoring blood sugars. Patient continues with weakness with physical therapy recommending rehab and initially agreeable although now family would like the patient to return home and is agreeable to home care. We'll have physical therapy work with the patient and social work also following and arranging for outpatient hemodialysis. Recommend follow-up labs and chest x-ray in the a.m. Wean FiO2 as tolerated and continue current medication regimen. All medications have been reviewed Active Medications Acetaminophen (Acetaminophen Tab 325 Mg Tab) 650 mg PO Q6HR PRN PRN Reason: Mild Pain or Fever > 100.5 Last Admin: 12/13/21 00:14 Dose: 650 mg Albuterol/Ipratropium (Ipratropium-Albuterol 3 Ml Neb) 3 ml INHALATION RT-QID [facility] Last Admin: 12/18/21 10:59 Dose: 3 ml Albuterol/Ipratropium (Ipratropium-Albuterol 3 Ml Neb) 3 ml INHALATION RT-Q4H PRN PRN Reason: Shortness Of Breath Or Wheezing Last Admin: 12/13/21 23:52 Dose: 3 ml Amlodipine Besylate (Amlodipine 5 Mg Tab) 5 mg PO DAILY VIAD Apixaban (Apixaban 5 Mg Tab) 5 mg PO BID [facility]; Protocol Last Admin: 12/18/21 06:38 Dose: Not Given Budesonide/Formoterol Fumarate (Symbicort 160-4.5 Mcg Inhaler) 2 puff INHALATION RT-BID [facility] Calcium Acetate (Calcium Acetate 667 Mg Tab) 667 mg PO TID-W/MEALS [facility] Last Admin: 12/18/21 11:20 Dose: Not Given Darbepoetin Michele (Darbepoetin Michele 60 Mcg/0.3 Ml Syringe) 60 mcg SQ Q7D [facility] Last Admin: 12/14/21 15:45 Dose: 60 mcg Dextrose/Water (Dextrose 50% Syringe 50 Ml) 25 ml IVP PER PROTOCOL PRN; Protocol PRN Reason: Hypoglycemia Dextrose/Water (Dextrose 50% Syringe 50 Ml) 50 ml IVP PER PROTOCOL PRN; Protocol PRN Reason: Hypoglycemia Hydralazine HCl (Hydralazine Hcl 25 Mg Tab) 25 mg PO TID [facility] Piperacillin Sod/Tazobactam (Sod 3.375 gm/ Sodium Chloride) 100 mls @ 25 mls/hr IVPB Q12HR [facility]; Protocol Last Admin: 12/18/21 09:57 Dose: 25 mls/hr Dexmedetomidine HCl 400 mcg/ (IV Solution) 100 mls @ 3.145 mls/hr IV .Q24H [facility]; Protocol Last Admin: 12/18/21 09:09 Dose: Not Given Lactated Ringer's (Lactated Ringers) 1,000 mls @ 20 mls/hr IV .Q24H [facility] Last Admin: 12/18/21 09:06 Dose: Not Given Insulin Aspart (Insulin Aspart (Novolog) 100 Unit/Ml Vial) 0 unit SQ ACHS [facility]; Protocol Last Admin: 12/18/21 11:20 Dose: Not Given Naloxone HCl (Naloxone 0.4 Mg/Ml 1 Ml Vial) 0.2 mg IV Q2M PRN PRN Reason: Opioid Reversal Pantoprazole Sodium (Pantoprazole 40 Mg/10 Ml Vial) 40 mg IV DAILY [facility] Last Admin: 12/18/21 09:57 Dose: 40 mg PHYSICAL EXAMINATION: GENERAL: The patient is awake, alert and oriented x2. Elderly female HEENT: Pupils are round and equally reacting to light. EOMI. no scleral icterus. No conjunctival pallor. Normocephalic, atraumatic. No pharyngeal erythema. No thyromegaly. CARDIOVASCULAR: S1 and S2 muffled PULMONARY: diminished breath sounds bilaterally with scattered rhonchi and faint crackles noted. ABDOMEN: soft. Nontender on exam. non-distended, normoactive bowel sounds. No palpable organomegaly. MUSCULOSKELETAL: No joint swelling or deformity. EXTREMITIES: No cyanosis, clubbing, or pedal edema. NEUROLOGICAL: Gross neurological examination did not reveal any focal deficits. Diffuse weakness SKIN: No rashes. Assessment: Change in mental status, acute metabolic encephalopathy, improving Acute on chronic hypoxic respiratory failure requiring mechanical ventilation on 12/11/2021, extubated on 12/14/2021 Congestive heart failure and chronic obstructive pulmonary disease, acute exace rbation Acute renal failure requiring emergent dialysis catheter placement and hemodialysis History of Degenerative joint disease History of DVT Gastroesophageal reflux disease Osteoarthritis Chronic bullous emphysema history Former smoker of 40+ years GI prophylaxis DVT prophylaxis Full code Plan: Recommend to continue with current medications and management and continues in the ICU with multiple medical consultations following. Patient is a down grade to med-surg once a bed becomes available. Patient was just extubated successfully and currently maintained on 3L via NC. Wean FiO2 as tolerated and will assess for home O2 oxygen to manage her COPD. Patient is also on hemodialysis daily for now. Patient scheduled to receive permacath with vascular surgery today. Patient is receiving IV antibiotics and will continue along with DuoNeb treatments. Recommend labs in the a.m. recommend physical therapy daily. Patient and family were initially open to ECF for rehab although now would like to take the patient home with home care. Case management to arrange outpatient dialysis. Due to multiple complex medical issues, prognosis is extremely guarded. The impression and plan of care has been dictated by Carmen Yeboah, Nurse Practitioner as directed. Dr. Saadia MD I have performed a history and examination and MDM of this patient, discussed the same with the dictator, and agree with the dictator's assessment and plan as written ,documented as a scribe. Based on total visit time, I have performed more than 50% of the visit. Objective - Vital Signs Vital signs: Vital Signs Temp 98 F 12/18/21 08:00 Pulse 85 12/18/21 11:09 Resp 22 12/18/21 08:00 BP 176/75 12/18/21 08:00 Pulse Ox 94 L 12/18/21 08:00 FiO2 35 12/14/21 08:00 Intake & Output 12/17/21 12/18/21 12/18/21 18:59 06:59 18:59 Intake Total 1020 120 Balance 1020 120 Weight 62 kg Intake: IV 220 120 0.9 120 120 Piperacillin-Tazobactam 3 100 .375 gm In Sodium Chloride 0.9% 100 ml @ 25 mls/hr IVPB Q12HR [facility] Rx #:[id number] Oral 800 Other: # Voids 0 # Bowel Movements 1 ABP, PAP, CO, CI - Last Documented Arterial Blood Pressure 117/54 - Labs CBC & Chem 7: 12/18/21 06:44 12/18/21 06:44 Labs: Abnormal Lab Results - Last 24 Hours (Table) 12/17/21 12/17/21 12/17/21 Range/Units 16:23 20:21 22:26 RBC (3.80-5.40) m/uL Hgb (11.4-16.0) gm/dL Hct (34.0-46.0) % MCV (80.0-100.0) fL Lymphocytes # (1.0-4.8) k/uL Sodium (137-145) mmol/L BUN (7-17) mg/dL Creatinine (0.52-1.04) mg/dL Glucose (74-99) mg/dL POC Glucose (mg/dL) 121 H 220 H 126 H (70-110) mg/dL Calcium (8.4-10.2) mg/dL 12/18/21 12/18/21 12/18/21 Range/Units 06:42 06:44 06:44 RBC 2.60 L (3.80-5.40) m/uL Hgb 8.3 L (11.4-16.0) gm/dL Hct 26.7 L (34.0-46.0) % MCV 102.8 H (80.0-100.0) fL Lymphocytes # 0.5 L (1.0-4.8) k/uL Sodium 136 L (137-145) mmol/L BUN 48 H (7-17) mg/dL Creatinine 3.32 H (0.52-1.04) mg/dL Glucose 126 H (74-99) mg/dL POC Glucose (mg/dL) 137 H (70-110) mg/dL Calcium 7.3 L (8.4-10.2) mg/dL 12/18/21 Range/Units 11:19 RBC (3.80-5.40) m/uL Hgb (11.4-16.0) gm/dL Hct (34.0-46.0) % MCV (80.0-100.0) fL Lymphocytes # (1.0-4.8) k/uL Sodium (137-145) mmol/L BUN (7-17) mg/dL Creatinine (0.52-1.04) mg/dL Glucose (74-99) mg/dL POC Glucose (mg/dL) 134 H (70-110) mg/dL Calcium (8.4-10.2) mg/dL
[2021-12-18] MEDS ORDERED: SODIUM CHLORIDE 0.9% 250 ML IV ONE (16:00)
[2021-12-18] MEDS ORDERED: LIDOCAINE 1% INJ 10MG/ML (30 ML VIAL-PF) SQ ONE (16:00)
[2021-12-18] MEDS ORDERED: fentaNYL (PF) 50 MCG/ML 2 ML AMP IV ONE (16:00)
[2021-12-18] MEDS ORDERED: MIDAZOLAM 2 MG/2 ML VIAL IV ONE (16:00)
[2021-12-18] MEDS: hydrALAZINE HCL 25 MG TAB PO SCH ×2 (16:58→22:45)
[2021-12-18 17:00] LABS: Glucose,Whole Blood 96 mg/dL (70-110)
--- NOTE | 2021-12-18 17:16 | IR ---
EXAMINATION TYPE: IR cvc insert central tunneled DATE OF EXAM: 12/18/2021 COMPARISON: NONE HISTORY: Dialysis catheter placement Fluoroscopy support supplied to the referring clinician. See dictated report from vascular surgery, 0.1 minutes fluoroscopy time, 97 intraoperative images document the procedure
[2021-12-18] MEDS: SYMBICORT 160-4.5 MCG INHALER INHALATION SCH (19:13)
[2021-12-18 20:15] LABS: Glucose,Whole Blood 165 mg/dL (70-110)
--- NOTE | 2021-12-19 01:49 | OP ---
OPERATIVE REPORT PREOPERATIVE DIAGNOSIS: Acute on chronic renal failure. POSTOPERATIVE DIAGNOSIS: Acute on chronic renal failure. PROCEDURES PERFORMED: 1. Ultrasound-guided 19 cm dialysis catheter placed, right jugular approach. 2. Removal of the femoral catheter from right groin. DESCRIPTION OF PROCEDURE: This patient was brought to the cath lab technologist. Right side of the chest and groin were prepped and draped in appropriate sterile manner. 1% lidocaine was infiltrated in the right neck area. Ultrasound-guided micropuncture was introduced into the right jugular vein and micropuncture guidewire was passed and 4-Maltese dilator advanced on the top of the guidewire. After that, we made an incision in the chest wall and a tunnel was created. Through the tunnel, we brought a 19 cm dialysis catheter. Then, we passed a regular guidewire, which was parked at the inferior vena cava. catheter was placed in the superior vena cava, and then advanced the guidewire was removed. Then dilator was advanced on the top of the guidewire. Then, sheath was advanced on the top of the guidewire and through the sheath, we placed a 19 cm dialysis catheter. Sheath was removed. Pressure was held and secured with 3-0 nylon and flushed with heparin saline. Then, attention was paid to the right groin. Right groin was prepped and the right groin catheter was removed. Pressure was held. The patient tolerated the procedure well and transferred to the recovery room in satisfactory condition. YI / EVERARDO: [id number] /
[2021-12-19] MEDS: INSULIN ASPART (NovoLOG) 100 UNIT/ML VIAL SQ SCH ×4 (07:11→20:31)
[2021-12-19] MEDS ORDERED: ONDANSETRON 4 MG/2 ML VIAL IVP PRN (07:27)
[2021-12-19] MEDS: IPRATROPIUM-ALBUTEROL 3 ML NEB INHALATION SCH ×4 (07:57→20:12)
[2021-12-19] MEDS: SYMBICORT 160-4.5 MCG INHALER INHALATION SCH ×2 (07:58→20:12)
[2021-12-19] MEDS: hydrALAZINE HCL 25 MG TAB PO SCH (08:05)
[2021-12-19] MEDS: APIXABAN 5 MG TAB PO SCH ×2 (08:05→21:02)
[2021-12-19] MEDS: CALCIUM ACETATE 667 MG TAB PO SCH ×3 (08:05→17:47)
[2021-12-19] MEDS: PANTOPRAZOLE 40 MG/10 ML VIAL IV SCH (08:05)
[2021-12-19] MEDS: amLODIPine 5 MG TAB PO SCH (08:05)
[2021-12-19] MEDS ORDERED: amLODIPine 2.5 MG TAB PO SCH (09:00)
[2021-12-19 09:14] LABS: Free Lambda Lt Chain Qnt, Seru 10.19 mg/dL (0.57-2.63)
--- NOTE | 2021-12-19 10:17 | P.PN ---
Subjective Patient is seen in follow-up for acute kidney injury. Oliguric. Hemodialysis dependent. Oral intake is good. Blood pressure 159/81 this morning. Denies chest pain or shortness of breath. No active complaints. Permacath placed yesterday. Vital signs are stable. General: Awake. No acute distress. HEENT: Head exam is unremarkable. On nasal cannula. LUNGS: Breath sounds decreased. HEART: Rate and Rhythm are regular. ABDOMEN: Soft, no distention. EXTREMITITES: Trace edema. Objective - Vital Signs Vital signs: Vital Signs Temp 98.5 F 12/19/21 08:00 Pulse 100 12/19/21 08:00 Resp 20 12/19/21 08:00 BP 159/81 12/19/21 08:00 Pulse Ox 96 12/19/21 07:59 FiO2 35 12/14/21 08:00 Intake & Output 12/18/21 12/19/21 12/19/21 18:59 06:59 18:59 Intake Total 120 Output Total 0 1 Balance 0 119 Weight 62.3 kg Intake: IV 120 0.9 120 Output: Urine 0 Stool 1 Other: # Voids 0 ABP, PAP, CO, CI - Last Documented Arterial Blood Pressure 117/54 - Labs CBC & Chem 7: 12/18/21 06:44 12/18/21 06:44 Labs: Abnormal Lab Results - Last 24 Hours (Table) 12/16/21 12/18/21 12/18/21 Range/Units 10:53 11:19 20:14 POC Glucose (mg/dL) 134 H 165 H (70-110) mg/dL Free [place] LC, Quant 16.10 H (0.33-1.94) mg/dL Free Lambda LC, Quant 10.19 H (0.57-2.63) mg/dL Assessment and Plan Plan: Assessment: 1. Acute kidney injury secondary to ATN secondary to septic shock. Oliguric. Started on hemodialysis 12/21/2021. Baseline creatinine 1-1.3 from August and September 2021. 2. Septic shock secondary to E. coli UTI and aspiration pneumonia s/p antibiotics. 3. Left hydronephrosis. Appears to be chronic with atrophic left kidney. No interventions planned. 4. Chronic kidney disease stage IIIa secondary to nephrosclerosis/obx uropathy with solitary functioning kidney. Baseline creatinine 1-1.3. 5. Anemia of chronic kidney disease. On Aranesp. Iron replete. 6. Metabolic acidosis secondary to acute kidney injury. Improved postdialysis. 7. Hyperphosphatemia secondary to acute kidney injury. On PhosLo. Plan: Hemodialysis today. Maintain on Friday schedule. No response in urine output despite IV Lasix. Continue to monitor for renal recovery. No UA available. Patient is anuric. Serologies negative. Permacath placed 12/18/2021. Outpatient dialysis to be set up by case management. Increase dose of hydralazine to 50 mg hold for systolic blood pressure less than 120.
--- NOTE | 2021-12-19 10:33 | P.PN ---
Subjective Progress Note Date: 12/19/21 Principal diagnosis: Hypertension The patient is a pleasant 71-year-old female patient was admitted to the hospital with acute hypoxic respiratory failure secondary to seizure kind of activities and subsequently she was intubated and then extubated. We involved in the care of the patient for the management of hypertension and also for elevated troponin. Conservative medical approach was advised. The patient underwent an echo which revealed normal left ventricular systolic function was no significant valvular abnormalities. December 182021 The patient was seen this morning. She is asymptomatic from the cardiac standpoint. She is hypertensive with a systolic pressure above 170 mmHg. I'm going to start the patient on amlodipine at 2.5 mg by mouth daily. December 19 The patient was seen and evaluated this morning in the intensive care unit. She remains overall asymptomatic from a cardiovascular standpoint of view. The pressure continues to be elevated in spite of starting the patient yesterday on amlodipine at 2.5 mg daily. I am going to increase the dose of amlodipine to 5 mg by mouth daily. Continue monitor the patient and adjust the medication to get the pressure under control beach she continues to be on hemodialysis. Objective - Vital Signs Vital signs: Vital Signs Temp 98.5 F 12/19/21 08:00 Pulse 100 12/19/21 08:00 Resp 20 12/19/21 08:00 BP 159/81 12/19/21 08:00 Pulse Ox 96 12/19/21 07:59 FiO2 35 12/14/21 08:00 Intake & Output 12/18/21 12/19/21 12/19/21 18:59 06:59 18:59 Intake Total 120 Output Total 0 1 Balance 0 119 Weight 62.3 kg Intake: IV 120 0.9 120 Output: Urine 0 Stool 1 Other: # Voids 0 ABP, PAP, CO, CI - Last Documented Arterial Blood Pressure 117/54 - Constitutional General appearance: Present: no acute distress - Respiratory Respiratory: bilateral: diminished - Cardiovascular Rhythm: regular - Labs CBC & Chem 7: 12/18/21 06:44 12/18/21 06:44 Labs: Abnormal Lab Results - Last 24 Hours (Table) 12/16/21 12/18/21 12/18/21 Range/Units 10:53 11:19 20:14 POC Glucose (mg/dL) 134 H 165 H (70-110) mg/dL Free [place] LC, Quant 16.10 H (0.33-1.94) mg/dL Free Lambda LC, Quant 10.19 H (0.57-2.63) mg/dL Assessment and Plan Assessment: Assessment Acute hypoxic respiratory failure which has resolved Elevated troponin/evidence of myocardial injury was no evidence of ischemia Hypertension History of DVT Plan #1 continue the current medical regimen #2 increase the dose of amlodipine to 5 mg by mouth daily #3 follow-up with the patient
[2021-12-19] MEDS: DEXMEDETOMIDINE/0.9% NACL(PMX) 400 MCG in EMPTY BAG 1 BAG IV SCH (11:13)
[2021-12-19 11:34] LABS: Glucose,Whole Blood 128 mg/dL (70-110)
[2021-12-19 11:44] LABS: Glucose,Whole Blood 126 mg/dL (70-110)
--- NOTE | 2021-12-19 12:05 | P.PN ---
Subjective Progress Note Date: 12/19/21 Principal diagnosis: Acute kidney injury, respiratory failure. Patient was reevaluated today on 12/14/21, patient remains in the ICU, intubated and mechanically ventilated. She is on assist control rate of 22, tidal volume is 450 FiO2 35% and PEEP of 5.Patient is on Precedex at 0.3 mcg/kg per hour. Patient is awake, arousable, follows simple instructions, and her labs were r eviewed she had a relatively normal CBC WBC is 4.1 hemoglobin is 7.9. Basic metabolic profile is normal however her BUN is 56 creatinine 3.65, patient is scheduled to undergo hemodialysis again today. Chest x-ray showed mostly stable left basilar opacity consistent with infiltrate. Right side seems to be much clearer today. Urine cultures were positive for E. coli on admission. Otherwise the rest of the cultures including blood and sputum were negative so far. Patient remains on bronchodilators, she is also on methylprednisolone 60 mg IV push every 6 hours, and she is on Zosyn. Considering the patient is awake, arousable, and considering she is appropriate mentally, I recommended a short trial of pressure support and CPAP with a pressure support of 10 while I was at bedside. Checking on the patient with pressure support and CPAP mode of mechanical ventilation, and half an hour later patient continued to tolerate that quite well, and her weaning parameters look reasonable, went ahead and recommended extubating the patient. Patient was extubated uneventfully, placed on nasal cannula. Patient is to have hemodialysis today. And she was seen yesterday by urology for left sided hydronephrosis, again this is being addressed by urology on the case Reevaluated today on 12/15/21, a shunt remains in the ICU, she was extubated yesterday uneventfully. She is on 2 L nasal cannula, and her O2 sats is 94% patient is yet to receive hemodialysis today. But overall the wound. No cough no wheezing no shortness of breath. CBC is relatively unremarkable WBC has 5.4 hemoglobin 8.3 left lites are normal BUN is 61 creatinine 3.34. Chest x-ray showed chronic emphysematous change, left basilar infiltrate or atelectasis is noted I suspect it is bibasilar infiltrates. Left more so than right Reevaluated today on 12/16/21, patient remains in the ICU as an overflow, she tolerated the extubation over the last few days quite well, remains on 3 L nasal cannula, O2 sats is 95%, patient is not any distress, she is still undergoing hemodialysis for acute kidney injury. Patient has no fever, she is relatively asymptomatic, blood pressure is 143/78. WBC count is 5.9 hemoglobin 8.7 and electrolytes are normal BUN is 52 creatinine 3.0 Progress note dated 12/17/2021. 71-year-old female seen in the intensive care unit, room 251. She was admitted to the hospital on December 10, with acute kidney injury. She developed respiratory failure, required intubation, on December 11, and was successfully extubated on December 14. Currently, she is on 3 L of oxygen. She's getting saline at KVO. She's had hemodialysis for the last 5 days. A permanent dialysis catheter will be placed today. The patient is a patient who can be transferred out to the medical/surgical floor, without telemetry. She's currently on Zosyn for Escherichia coli urinary tract infection. White count 4.9, hemoglobin 8.4, hematocrit 27.1, and platelet count 253,000. Sodium 139, potassium 4.7, chlorides 102, CO2 23, anion gap 14, BUN 78, and creatinine 5.29. No chest x-ray noted. Progress note dated 12/18/2021. 71-year-old female seen in the intensive care unit, room 251. She was admitted to the hospital December 10, with acute kidney injury. She developed respiratory failure, and required intubation on December 11, and was successfully extubated on 12/14/2021. Currently, she is on 3 L of oxygen. She's not receiving any IV fluids. She is to receive a permanent hemodialysis catheter today. She had hemodialysis yesterday. Not sure about hemodialysis today. White count 4.6, hemoglobin 8.3, hematocrit 26.7, and platelet count 261,000. Sodium 136, potassium 4.5, chlorides 103, CO2 22, anion gap 11, BUN 48, and creatinine 3.32. Urine, on December 10 was positive for Escherichia coli. No recent chest x-ray to report. Progress note dated 12/19/2021. 71-year-old female seen in room 251. She remains in the intensive care unit. Yesterday, December 18, she had a hemodialysis catheter placed. She's currently on 4 L of oxygen. She's not receiving any IV fluids. No new laboratory data today. Glucose 126. The patient appears reasonably stable. She denies any shortness of breath, wheezing, chest tightness, cough, or phlegm production. No chest pain or chest discomfort. No fever or chills. Objective - Vital Signs Vital signs: Vital Signs Temp 98.5 F 12/19/21 08:00 Pulse 100 12/19/21 08:00 Resp 20 12/19/21 08:00 BP 159/81 12/19/21 08:00 Pulse Ox 96 12/19/21 07:59 FiO2 35 12/14/21 08:00 Intake & Output 12/18/21 12/19/21 12/19/21 18:59 06:59 18:59 Intake Total 120 Output Total 0 1 Balance 0 119 Weight 62.3 kg Intake: IV 120 0.9 120 Output: Urine 0 Stool 1 Other: # Voids 0 ABP, PAP, CO, CI - Last Documented Arterial Blood Pressure 117/54 - Exam No acute distress, oriented 3. Laying, in bed. Currently on 4 L. HEENT examination is grossly unremarkable. Neck supple. Full range of motion. No adenopathy thyromegaly or neck vein distention. Cardiovascular examination reveals regular rhythm rate. S1-S2 normal. No S3 or S4. No discernible murmur noted. Heart rate 100 bpm. Lungs reveal clear breath sounds. Breath sounds are equal bilaterally. No adv entitious lung sounds including wheezes rhonchi or crackles. Saturations are 96 %. Abdomen soft bowel sounds are heard. No masses or tenderness. Extremities are intact. No cyanosis clubbing or edema. Skin is without rash or lesion. Neurologic examination is brief but nonfocal. - Labs CBC & Chem 7: 12/18/21 06:44 12/18/21 06:44 Labs: Abnormal Lab Results - Last 24 Hours (Table) 12/16/21 12/18/21 12/19/21 Range/Units 10:53 20:14 11:33 POC Glucose (mg/dL) 165 H 128 H (70-110) mg/dL Free [place] LC, Quant 16.10 H (0.33-1.94) mg/dL Free [place] LC, Quant 10.19 H (0.57-2.63) mg/dL 12/19/21 Range/Units 11:42 POC Glucose (mg/dL) 126 H (70-110) mg/dL Free [place] LC, Quant (0.33-1.94) mg/dL Free [place] LC, Quant (0.57-2.63) mg/dL Assessment and Plan Assessment: Acute respiratory failure secondary to seizure-like activity, requiring intubation and mechanical ventilation, with successful extubation on 12/14/2021. Patient was intubated on 12/11/2021. Acute on chronic hypoxemic respiratory failure secondary to COPD, and acute diastolic CHF. Possible aspiration pneumonia. Acute Escherichia coli urinary tract infection. Chronic tobacco use. History of left lower extremity DVT. Chronic back pain. History of gastroesophageal reflux disease. Acute kidney injury, requiring daily hemodialysis,S/P permanent hemodialysis catheter placement on December 18. Plan: Plan dated 12/17/2021. The patient is seen, interviewed, and examined, and room 251. She remains on 3 L of oxygen. She's getting daily hemodialysis. A dialysis catheter will be placed today. She continues on Zosyn for Escherichia coli urinary tract infection, and possible aspiration pneumonia. Labs, x-rays, medications are reviewed. Prognosis is certainly guarded. We will continue follow the patient and make recommendations along the way. The patient could be considered for transfer out of the intensive care unit. Plan dated 12/18/2021. The patient will apparently receive a permanent hemodialysis catheter today. She is on 3 L. No IV fluids. Labs, x-rays, and medications are reviewed. She remains on updrafts, she also remains on Zosyn. Corticosteroids can be disconti nued. Additional recommendations and suggestions are forthcoming. The patient's budesonide and formoterol can be discontinued in favor of Symbicort. The patient continues on albuterol sulfate, and ipratropium bromide. Plan dated 12/19/2021. The patient had a permanent hemodialysis catheter placed on December 18. She's currently on 4 L of oxygen, with saturations of 96%. Clinically, she looks reasonably stable. She denies any shortness of breath. Medications are reviewed. Everything appears to be appropriate. Labs, x-rays, and medications are all reviewed. We will continue to follow the patient and make recommendations along the way. The patient can be transferred out to the [facility] floor. Time with Patient: Less than 30
[2021-12-19] MEDS: IPRATROPIUM-ALBUTEROL 3 ML NEB INHALATION PRN ×2 (17:00→23:25)
[2021-12-19] MEDS: hydrALAZINE HCL 50 MG TAB PO SCH ×2 (17:26→21:01)
[2021-12-19 17:29] LABS: Glucose,Whole Blood 130 mg/dL (70-110)
--- NOTE | 2021-12-19 17:46 | XR ---
EXAMINATION TYPE: XR chest 1V portable DATE OF EXAM: 12/19/2021 COMPARISON: 12/15/2021 HISTORY: Difficulty breathing TECHNIQUE: FINDINGS: There is coarse interstitial density in the lungs. Heart size is normal. There is pulmonar y emphysema. There is right central venous catheter with tip in the superior vena cava. There is slig ht blunting of the costophrenic angles. IMPRESSION: Emphysema and mild pulmonary interstitial edema. Small pleural effusions. Atypical conges tive heart failure not excluded. Pulmonary edema improved compared to recent exam.
[2021-12-19] MEDS: methylPREDNISolone SOD SUCCI 40 MG/ML 1 ML VIAL IV SCH ×2 (18:03→23:53)
[2021-12-19 20:17] LABS: Glucose,Whole Blood 117 mg/dL (70-110)
--- NOTE | 2021-12-20 06:33 | P.PN ---
Subjective Progress Note Date: 12/19/21 This is a 71-year-old female who was recently admitted with change in mental status and increased hypoxia and shortness of breath and being closely monitored. Multiple medical consultations following and patient had worsening hypoxia and abnormal ABG and brought to the ICU and patient was ultimately pl aced on mechanical vent. Patient is maintained on IV Zosyn and also emergently received a temporary dialysis catheter and is undergoing hemodialysis with nephrology following closely. Patient's kidney functions worsened and emergently started on dialysis. Patient is on mechanical vent with FiO2 of 35% with PEEP of 5. Patient was initiated on emergent dialysis last night and receiving again today. 12/13/2021 Patient is seen and evaluated in follow-up in the ICU with multiple medical consultations following. Patient continues on mechanical vent under sedation FiO2 is 35% with a PEEP of 5. Chest x-ray today shows chronic emphysematous changes with small to tiny bilateral pleural effusions and left basilar acute infiltrate and/or atelectasis noted. Patient also underwent EEG and was a bnormal with periods of suppression suggesting generalized cerebral dysfunction that can be seen in encephalopathy or medication induced. No epileptiform discharges noted. Patient continues on hemodialysis, sodium bicarb drip with nephrology following closely. Patient also continues on DuoNeb treatments along with IV steroids and will continue. Patient is on antibiotics and sputum cultures pending and preliminary cultures of blood thus far negative. Urine culture showed E. coli. 12/14/2021 Patient is seen in follow-up this morning continues on mechanical vent in the ICU with an FiO2 of 35% and PEEP is 5. Multiple medical consultations following including nephrology and patient has been receiving hemodialysis daily. Patient is continued on DuoNeb treatments along with subcutaneous Lovenox, IV steroids high-dose, Zosyn, and propofol is currently off. Attempting sedation holidays with possibly weaning. Rest x-ray this morning shows no change from one day prior with left basilar airspace opacification and possible left pleural effusion. Urology has been consulted for nephrosclerosis with history of left renal atrophy with severe hydrocele is noted of the left kidney and CT abdomen pelvis without contrast is ordered. Recommending to continue with indwelling Santos catheter. Cardiology also consulted for the elevated troponins recommend to continue with current cardiac medications and continue telemetry monitoring. The pressures are soft although not requiring pressor support at this time. Blood cultures have been negative and patient's urine culture was E. coli gram stained sputum culture currently pending at this time. Per nursing staff plan is for extubation possibly today. 12/15/2021 Patient is seen today and is on 2L via NC tolerating. Extubated yesterday. Patient is to receive dialysis again today with nephrology following. Discussion about possible outpatient dialysis being needed as patient is not producing urine. To continue over the next few days and monitor closely. Maintained on breathing treatments along with IV steroids and antibiotics. Patient is in the ICU although is a down grade to the med surg unit. Afebrile and denies worsening shortness of breath or chest pains. Tolerating diet. 12/16/2021 Patient is seen in follow up and continuing on 2L via nc. Patient is currently on hemodialysis and will need to discuss with nephrology about outpatient dialysis. Patient to continue with duonebs and IS use. Encouraged increased activity as tolerated and will have PT/OT evaluate. Encourage oral intake, renal diet. Patient is continued on IV antibiotics as well. Patient to receive lasix today. Awaiting med surg bed. Afebrile and denies worsening shortness of breath or chest pains. Tolerating diet. 12/17/2021 Patient is seen today in the ICU and awaiting a down grade to selective. Receiving hemodialysis today although blood pressures are uncontrolled and mostly ultrafiltration today. Plan is for permacath placement in the am with vascular surgery. Continues on IV steroids and duonebs and will continue. Wean Fi02 as tolerated and currently on 2 L via NC. Afebrile and denies chest pain or worsening shortness of breath. Encouraged oral intake and increased activity as tolerated. PT/OT to follow for possible ECF. 12/18/2021 Patient is seen and evaluated in follow-up with nephrology following closely. Patient is scheduled for permacath placement today with Dr. Jesus which is currently pending. Patient is continued on Zosyn and steroids have been discontinued. Patient also continues with DuoNeb treatments and will continue. Patient is on 2-3 L via nasal cannula with oxygen saturations of 94%. Hemoglobin stable today at 8.3, kidney function slightly improved with a BUN of 3.32 and closely monitoring blood sugars. Patient continues with weakness with physical therapy recommending rehab and initially agreeable although now family would like the patient to return home and is agreeable to home care. We'll have physical therapy work with the patient and social work also following and arranging for outpatient hemodialysis. Recommend follow-up labs and chest x-ray in the a.m. Wean FiO2 as tolerated and continue current medication regimen. 12/19/2021 Patient is seen today in the ICU and continues to await a bed on med surg. Maintained on hemodialysis. Patient had some nausea this am and reports not feeling really hungry. Will add zofran and encouraged small meals. Patient with weakness and working with PT/OT will discuss with other consultations as well as case management about outpatient dialysis. Recommend repeat labs in am. All medications have been reviewed PHYSICAL EXAMINATION: GENERAL: The patient is awake, alert and oriented x2. Elderly female HEENT: Pupils are round and equally reacting to light. EOMI. no scleral icterus. No conjunctival pallor. Normocephalic, atraumatic. No pharyngeal erythema. No thyromegaly. CARDIOVASCULAR: S1 and S2 muffled PULMONARY: diminished breath sounds bilaterally with scattered rhonchi and faint crackles noted. ABDOMEN: soft. Nontender on exam. non-distended, normoactive bowel sounds. No palpable organomegaly. MUSCULOSKELETAL: No joint swelling or deformity. EXTREMITIES: No cyanosis, clubbing, or pedal edema. NEUROLOGICAL: Gross neurological examination did not reveal any focal deficits. Diffuse weakness SKIN: No rashes. Assessment: Change in mental status, acute metabolic encephalopathy, improving Acute on chronic hypoxic respiratory failure requiring mechanical ventilation on 12/11/2021, extubated on 12/14/2021 Congestive heart failure and chronic obstructive pulmonary disease, acute exacerbation Acute renal failure requiring emergent dialysis catheter placement and hemodialysis History of Degenerative joint disease History of DVT Gastroesophageal reflux disease Osteoarthritis Chronic bullous emphysema history Former smoker of 40+ years GI prophylaxis DVT prophylaxis Full code Plan: Recommend to continue with current medications and management and continues in the ICU with multiple medical consultations following. Patient is a down grade to med-surg once a bed becomes available. Patient with some nausea and will add zofran. Wean FiO2 as tolerated and will assess for home O2 oxygen to manage her COPD. Patient is also on hemodialysis and received permacath. Patient is receiving IV antibiotics and will continue along with DuoNeb treatments. Recommend labs in the a.m. recommend physical therapy daily. Patient and family were initially open to ECF for rehab although now would like to take the patient home with home care. Case management to arrange outpatient dialysis. Due to multiple complex medical issues, prognosis is extremely guarded. The impression and plan of care has been dictated by Carmen Yeboah, Nurse Practitioner as directed. Dr. Saadia MD I have performed a history and examination and MDM of this patient, discussed the same with the dictator, and agree with the dictator's assessment and plan as written ,documented as a scribe. Based on total visit time, I have performed more than 50% of the visit. Objective - Vital Signs Vital signs: Vital Signs Temp 97.6 F 12/20/21 02:00 Pulse 100 12/20/21 02:00 Resp 24 12/20/21 02:00 BP 135/73 12/20/21 02:00 Pulse Ox 94 L 12/20/21 02:00 FiO2 50 12/19/21 20:13 Intake & Output 12/19/21 12/19/21 12/20/21 06:59 18:59 06:59 Intake Total 120 550 250 Output Total 1 1304 1 Balance 119 -754 249 Weight 62.3 kg Intake: IV 120 0.9 120 Oral 250 250 Hemodialysis 300 Output: Stool 1 1 1 Hemodialysis 1303 Other: # Voids 0 0 ABP, PAP, CO, CI - Last Documented Arterial Blood Pressure 117/54 - Labs CBC & Chem 7: 12/18/21 06:44 12/18/21 06:44 Labs: Abnormal Lab Results - Last 24 Hours (Table) 12/16/21 12/19/21 12/19/21 Range/Units 10:53 11:33 11:42 POC Glucose (mg/dL) 128 H 126 H (70-110) mg/dL Free [place] LC, Quant 16.10 H (0.33-1.94) mg/dL Free [place] LC, Quant 10.19 H (0.57-2.63) mg/dL 12/19/21 12/19/21 Range/Units 17:28 20:15 POC Glucose (mg/dL) 130 H 117 H (70-110) mg/dL Free [place] LC, Quant (0.33-1.94) mg/dL Free [place] LC, Quant (0.57-2.63) mg/dL
[2021-12-20] MEDS: CALCIUM ACETATE 667 MG TAB PO SCH ×3 (07:01→16:54)
[2021-12-20] MEDS: methylPREDNISolone SOD SUCCI 40 MG/ML 1 ML VIAL IV SCH ×4 (07:01→23:50)
[2021-12-20 07:02] LABS: Glucose,Whole Blood 138 mg/dL (70-110)
--- NOTE | 2021-12-20 07:08 | P.PN ---
Subjective Progress Note Date: 12/20/21 Principal diagnosis: Hypertension The patient is a pleasant 71-year-old female patient was admitted to the hospital with acute hypoxic respiratory failure secondary to seizure kind of activities and subsequently she was intubated and then extubated. We involved in the care of the patient for the management of hypertension and also for elevated troponin. Conservative medical approach was advised. The patient underwent an echo which revealed normal left ventricular systolic function was no significant valvular abnormalities. December 182021 The patient was seen this morning. She is asymptomatic from the cardiac standpoint. She is hypertensive with a systolic pressure above 170 mmHg. I'm going to start the patient on amlodipine at 2.5 mg by mouth daily. December 192021 The patient was seen and evaluated this morning in the intensive care unit. She remains overall asymptomatic from a cardiovascular standpoint of view. The pressure continues to be elevated in spite of starting the patient yesterday on amlodipine at 2.5 mg daily. I am going to increase the dose of amlodipine to 5 mg by mouth daily. Continue monitor the patient and adjust the medication to get the pressure under control beach she continues to be on hemodialysis. December 202021 The patient was seen this morning. She continues to be on dialysis. The pressure seems to be under excellent control on the current medical regimen. We did increase the dose of amlodipine to 5 mg by mouth daily yesterday. She reports no pain in the chest and no shortness of breath. Overall she is hemodynamically stable. From a cardiovascular standpoint of view, we'll continue the current medical regimen and follow-up with the patient on when necessary case Objective - Vital Signs Vital signs: Vital Signs Temp 97.6 F 12/20/21 02:00 Pulse 100 12/20/21 02:00 Resp 24 12/20/21 02:00 BP 135/73 12/20/21 02:00 Pulse Ox 94 L 12/20/21 02:00 FiO2 50 12/19/21 20:13 Intake & Output 12/19/21 12/20/21 12/20/21 18:59 06:59 18:59 Intake Total 550 250 Output Total 1304 1 Balance -754 249 Intake: Oral 250 250 Hemodialysis 300 Output: Stool 1 1 Hemodialysis 1303 Other: # Voids 0 ABP, PAP, CO, CI - Last Documented Arterial Blood Pressure 117/54 - Constitutional General appearance: Present: no acute distress - Respiratory Respiratory: bilateral: diminished - Cardiovascular Rhythm: regular - Labs CBC & Chem 7: 12/18/21 06:44 12/18/21 06:44 Labs: Abnormal Lab Results - Last 24 Hours (Table) 12/16/21 12/19/21 12/19/21 Range/Units 10:53 11:33 11:42 POC Glucose (mg/dL) 128 H 126 H (70-110) mg/dL Free [place] LC, Quant 16.10 H (0.33-1.94) mg/dL Free [place] LC, Quant 10.19 H (0.57-2.63) mg/dL 12/19/21 12/19/21 12/20/21 Range/Units 17:28 20:15 07:00 POC Glucose (mg/dL) 130 H 117 H 138 H (70-110) mg/dL Free [place] LC, Quant (0.33-1.94) mg/dL Free [place] LC, Quant (0.57-2.63) mg/dL Assessment and Plan Assessment: Assessment Acute hypoxic respiratory failure which has resolved Elevated troponin/evidence of myocardial injury was no evidence of ischemia Hypertension History of DVT Plan #1 continue the current medical regimen #2 continue the current dose of amlodipine #3 follow-up with the patient on when necessary case
[2021-12-20] MEDS: IPRATROPIUM-ALBUTEROL 3 ML NEB INHALATION SCH ×4 (07:15→19:48)
[2021-12-20 07:21] LABS: Basophils % (A) 0 %; Eosinophils % (A) 0 %; HCT 23.2 % (34.0-46.0); HGB 7.5 gm/dL (11.4-16.0); Hypochromasia Moderate; Lymphocytes # (A) 0.4 k/uL (1.0-4.8); Lymphocytes % (A) 11 %; MCH 32.9 pg (25.0-35.0); MCHC 32.3 g/dL (31.0-37.0); MCV 101.8 fL (80.0-100.0); Macrocytosis Slight; Mean Platelet Volume 8.3; Monocytes # (A) 0.1 k/uL (0-1.0); Monocytes % (A) 1 %; Neutrophils # (A) 2.9 k/uL (1.3-7.7); Neutrophils % (A) 84 %; Platelet Count 255 k/uL (150-450); RBC 2.27 m/uL (3.80-5.40); RDW 15.4 % (11.5-15.5); WBC 3.5 k/uL (3.8-10.6)
[2021-12-20] MEDS: SYMBICORT 160-4.5 MCG INHALER INHALATION SCH (07:28)
[2021-12-20 07:55] LABS: Calcium 7.5 mg/dL (8.4-10.2)
[2021-12-20] MEDS: INSULIN ASPART (NovoLOG) 100 UNIT/ML VIAL SQ SCH ×4 (07:55→21:19)
[2021-12-20] MEDS: APIXABAN 5 MG TAB PO SCH ×2 (08:25→21:19)
[2021-12-20] MEDS: PANTOPRAZOLE 40 MG/10 ML VIAL IV SCH (08:26)
--- NOTE | 2021-12-20 09:18 | P.PN ---
Subjective Patient is seen in follow-up for acute kidney injury. Oliguric. Hemodialysis dependent. Oral intake is good. Blood pressure well controlled this morning. Denies chest pain or shortness of breath. On nasal cannula. No active complaints. No problems with dialysis yesterday. Vital signs are stable. General: Awake. No acute distress. HEENT: Head exam is unremarkable. On nasal cannula. LUNGS: Breath sounds decreased. HEART: Rate and Rhythm are regular. ABDOMEN: Soft, no distention. EXTREMITITES: Trace edema. Objective - Vital Signs Vital signs: Vital Signs Temp 98.9 F 12/20/21 08:00 Pulse 101 H 12/20/21 08:00 Resp 14 12/20/21 08:00 BP 118/55 12/20/21 08:00 Pulse Ox 94 L 12/20/21 08:00 FiO2 50 12/19/21 20:13 Intake & Output 12/19/21 12/20/21 12/20/21 18:59 06:59 18:59 Intake Total 550 250 Output Total 1304 1 Balance -754 249 Weight 63.3 kg Intake: Oral 250 250 Hemodialysis 300 Output: Stool 1 1 Hemodialysis 1303 Other: # Voids 0 ABP, PAP, CO, CI - Last Documented Arterial Blood Pressure 117/54 - Labs CBC & Chem 7: 12/20/21 06:32 12/20/21 06:32 Labs: Abnormal Lab Results - Last 24 Hours (Table) 12/16/21 12/19/21 12/19/21 Range/Units 10:53 11:33 11:42 WBC (3.8-10.6) k/uL RBC (3.80-5.40) m/uL Hgb (11.4-16.0) gm/dL Hct (34.0-46.0) % MCV (80.0-100.0) fL Lymphocytes # (1.0-4.8) k/uL Sodium (137-145) mmol/L BUN (7-17) mg/dL Creatinine (0.52-1.04) mg/dL Glucose (74-99) mg/dL POC Glucose (mg/dL) 128 H 126 H (70-110) mg/dL Calcium (8.4-10.2) mg/dL Free Yardley LC, Quant 16.10 H (0.33-1.94) mg/dL Free Lambda LC, Quant 10.19 H (0.57-2.63) mg/dL 12/19/21 12/19/21 12/20/21 Range/Units 17:28 20:15 06:32 WBC 3.5 L (3.8-10.6) k/uL RBC 2.27 L (3.80-5.40) m/uL Hgb 7.5 L (11.4-16.0) gm/dL Hct 23.2 L (34.0-46.0) % MCV 101.8 H (80.0-100.0) fL Lymphocytes # 0.4 L (1.0-4.8) k/uL Sodium (137-145) mmol/L BUN (7-17) mg/dL Creatinine (0.52-1.04) mg/dL Glucose (74-99) mg/dL POC Glucose (mg/dL) 130 H 117 H (70-110) mg/dL Calcium (8.4-10.2) mg/dL Free Yardley LC, Quant (0.33-1.94) mg/dL Free Lambda LC, Quant (0.57-2.63) mg/dL 12/20/21 12/20/21 Range/Units 06:32 07:00 WBC (3.8-10.6) k/uL RBC (3.80-5.40) m/uL Hgb (11.4-16.0) gm/dL Hct (34.0-46.0) % MCV (80.0-100.0) fL Lymphocytes # (1.0-4.8) k/uL Sodium 136 L (137-145) mmol/L BUN 45 H (7-17) mg/dL Creatinine 3.28 H (0.52-1.04) mg/dL Glucose 141 H (74-99) mg/dL POC Glucose (mg/dL) 138 H (70-110) mg/dL Calcium 7.5 L (8.4-10.2) mg/dL Free Yardley LC, Quant (0.33-1.94) mg/dL Free Lambda LC, Quant (0.57-2.63) mg/dL Assessment and Plan Plan: Assessment: 1. Acute kidney injury secondary to ATN secondary to septic shock. Oliguric. Started on hemodialysis 12/21/2021. Baseline creatinine 1-1.3 from August and September 2021. 2. Septic shock secondary to E. coli UTI and aspiration pneumonia s/p antibiotics. 3. Left hydronephrosis. Appears to be chronic with atrophic left kidney. No interventions planned. 4. Chronic kidney disease stage IIIa secondary to nephrosclerosis/obx uropathy with solitary functioning kidney. Baseline creatinine 1-1.3. 5. Anemia of chronic kidney disease. On Aranesp. Iron replete. 6. Metabolic acidosis secondary to acute kidney injury. Improved postdialysis. 7. Hyperphosphatemia secondary to acute kidney injury. On PhosLo. Phosphorus 6.0 dated 12/15/2021. Plan: Hemodialysis tomorrow - challenge ultrafiltration. Maintain on Friday schedule. No response in urine output despite IV Lasix. Continue to monitor for renal recovery. No UA available. Patient is anuric. Serologies negative. Repeat phosphorus level. Permacath placed 12/18/2021. Outpatient dialysis to be set up by case management.
[2021-12-20] MEDS: amLODIPine 5 MG TAB PO SCH (10:21)
[2021-12-20] MEDS: hydrALAZINE HCL 50 MG TAB PO SCH ×3 (10:21→21:19)
[2021-12-20 11:09] LABS: Glucose,Whole Blood 206 mg/dL (70-110)
[2021-12-20] MEDS: LACTATED RINGERS 1,000 ML IV SCH ×2 (11:17→21:18)
[2021-12-20 11:52] VITALS: BMI 23.2
[2021-12-20 12:05] LABS: Glucose,Whole Blood 208 mg/dL (70-110)
--- NOTE | 2021-12-20 12:26 | P.PN ---
Subjective Progress Note Date: 12/20/21 Principal diagnosis: Acute kidney injury, respiratory failure. Patient was reevaluated today on 12/14/21, patient remains in the ICU, intubated and mechanically ventilated. She is on assist control rate of 22, tidal volume is 450 FiO2 35% and PEEP of 5.Patient is on Precedex at 0.3 mcg/kg per hour. Patient is awake, arousable, follows simple instructions, and her labs were r eviewed she had a relatively normal CBC WBC is 4.1 hemoglobin is 7.9. Basic metabolic profile is normal however her BUN is 56 creatinine 3.65, patient is scheduled to undergo hemodialysis again today. Chest x-ray showed mostly stable left basilar opacity consistent with infiltrate. Right side seems to be much clearer today. Urine cultures were positive for E. coli on admission. Otherwise the rest of the cultures including blood and sputum were negative so far. Patient remains on bronchodilators, she is also on methylprednisolone 60 mg IV push every 6 hours, and she is on Zosyn. Considering the patient is awake, arousable, and considering she is appropriate mentally, I recommended a short trial of pressure support and CPAP with a pressure support of 10 while I was at bedside. Checking on the patient with pressure support and CPAP mode of mechanical ventilation, and half an hour later patient continued to tolerate that quite well, and her weaning parameters look reasonable, went ahead and recommended extubating the patient. Patient was extubated uneventfully, placed on nasal cannula. Patient is to have hemodialysis today. And she was seen yesterday by urology for left sided hydronephrosis, again this is being addressed by urology on the case Reevaluated today on 12/15/21, a shunt remains in the ICU, she was extubated yesterday uneventfully. She is on 2 L nasal cannula, and her O2 sats is 94% patient is yet to receive hemodialysis today. But overall the wound. No cough no wheezing no shortness of breath. CBC is relatively unremarkable WBC has 5.4 hemoglobin 8.3 left lites are normal BUN is 61 creatinine 3.34. Chest x-ray showed chronic emphysematous change, left basilar infiltrate or atelectasis is noted I suspect it is bibasilar infiltrates. Left more so than right Reevaluated today on 12/16/21, patient remains in the ICU as an overflow, she tolerated the extubation over the last few days quite well, remains on 3 L nasal cannula, O2 sats is 95%, patient is not any distress, she is still undergoing hemodialysis for acute kidney injury. Patient has no fever, she is relatively asymptomatic, blood pressure is 143/78. WBC count is 5.9 hemoglobin 8.7 and electrolytes are normal BUN is 52 creatinine 3.0 Progress note dated 12/17/2021. 71-year-old female seen in the intensive care unit, room 251. She was admitted to the hospital on December 10, with acute kidney injury. She developed respiratory failure, required intubation, on December 11, and was successfully extubated on December 14. Currently, she is on 3 L of oxygen. She's getting saline at KVO. She's had hemodialysis for the last 5 days. A permanent dialysis catheter will be placed today. The patient is a patient who can be transferred out to the medical/surgical floor, without telemetry. She's currently on Zosyn for Escherichia coli urinary tract infection. White count 4.9, hemoglobin 8.4, hematocrit 27.1, and platelet count 253,000. Sodium 139, potassium 4.7, chlorides 102, CO2 23, anion gap 14, BUN 78, and creatinine 5.29. No chest x-ray noted. Progress note dated 12/18/2021. 71-year-old female seen in the intensive care unit, room 251. She was admitted to the hospital December 10, with acute kidney injury. She developed respiratory failure, and required intubation on December 11, and was successfully extubated on 12/14/2021. Currently, she is on 3 L of oxygen. She's not receiving any IV fluids. She is to receive a permanent hemodialysis catheter today. She had hemodialysis yesterday. Not sure about hemodialysis today. White count 4.6, hemoglobin 8.3, hematocrit 26.7, and platelet count 261,000. Sodium 136, potassium 4.5, chlorides 103, CO2 22, anion gap 11, BUN 48, and creatinine 3.32. Urine, on December 10 was positive for Escherichia coli. No recent chest x-ray to report. Progress note dated 12/19/2021. 71-year-old female seen in room 251. She remains in the intensive care unit. Yesterday, December 18, she had a hemodialysis catheter placed. She's currently on 4 L of oxygen. She's not receiving any IV fluids. No new laboratory data today. Glucose 126. The patient appears reasonably stable. She denies any shortness of breath, wheezing, chest tightness, cough, or phlegm production. No chest pain or chest discomfort. No fever or chills. Progress note dated 12/20/2021. 71-year-old female seen again, in room 251. The patient is doing reasonably well. She is on 2 L of oxygen. No IV fluids. Yesterday, the patient developed shortness of breath, likely related to her underlying COPD. She was given Pulmicort, formoterol, DuoNeb nebs, and Solu-Medrol. She appears better today. Labs today include a white count 3.5, hemoglobin 7.5, hematocrit 23.2, and a normal platelet count. Sodium 136, potassium 4, chlorides 100, CO2 26, anion gap 10, BUN 45, and creatinine 3.28. Chest x-ray from yesterday shows changes of COPD, and some diffuse interstitial edema/CHF. Objective - Vital Signs Vital signs: Vital Signs Temp 98.9 F 12/20/21 08:00 Pulse 101 H 12/20/21 08:00 Resp 14 12/20/21 08:00 BP 118/65 12/20/21 09:45 Pulse Ox 94 L 12/20/21 08:00 FiO2 50 12/19/21 20:13 Intake & Output 12/19/21 12/20/21 12/20/21 18:59 06:59 18:59 Intake Total 550 250 Output Total 1304 1 Balance -754 249 Weight 63.3 kg Intake: Oral 250 250 Hemodialysis 300 Output: Stool 1 1 Hemodialysis 1303 Other: # Voids 0 ABP, PAP, CO, CI - Last Documented Arterial Blood Pressure 117/54 - Exam No acute distress, oriented 3. Sitting up in a chair. Currently on 2 L. HEENT examination is grossly unremarkable. Neck supple. Full range of motion. No adenopathy thyromegaly or neck vein distention. Cardiovascular examination reveals regular rhythm rate. S1-S2 normal. No S3 or S4. No discernible murmur noted. Heart rate 91 bpm. Lungs reveal clear breath sounds. Breath sounds are equal bilaterally. No adventitious lung sounds including wheezes rhonchi or crackles. Saturations are 97 %. Abdomen soft bowel sounds are heard. No masses or tenderness. Extremities are intact. No cyanosis clubbing or edema. Skin is without rash or lesion. Neurologic examination is brief but nonfocal. - Labs CBC & Chem 7: 12/20/21 06:32 12/20/21 06:32 Labs: Abnormal Lab Results - Last 24 Hours (Table) 12/19/21 12/19/21 12/20/21 Range/Units 17:28 20:15 06:32 WBC 3.5 L (3.8-10.6) k/uL RBC 2.27 L (3.80-5.40) m/uL Hgb 7.5 L (11.4-16.0) gm/dL Hct 23.2 L (34.0-46.0) % MCV 101.8 H (80.0-100.0) fL Lymphocytes # 0.4 L (1.0-4.8) k/uL Sodium (137-145) mmol/L BUN (7-17) mg/dL Creatinine (0.52-1.04) mg/dL Glucose (74-99) mg/dL POC Glucose (mg/dL) 130 H 117 H (70-110) mg/dL Calcium (8.4-10.2) mg/dL Phosphorus (2.5-4.5) mg/dL 12/20/21 12/20/21 12/20/21 Range/Units 06:32 06:32 07:00 WBC (3.8-10.6) k/uL RBC (3.80-5.40) m/uL Hgb (11.4-16.0) gm/dL Hct (34.0-46.0) % MCV (80.0-100.0) fL Lymphocytes # (1.0-4.8) k/uL Sodium 136 L (137-145) mmol/L BUN 45 H (7-17) mg/dL Creatinine 3.28 H (0.52-1.04) mg/dL Glucose 141 H (74-99) mg/dL POC Glucose (mg/dL) 138 H (70-110) mg/dL Calcium 7.5 L (8.4-10.2) mg/dL Phosphorus 6.6 H (2.5-4.5) mg/dL 12/20/21 12/20/21 Range/Units 11:07 12:03 WBC (3.8-10.6) k/uL RBC (3.80-5.40) m/uL Hgb (11.4-16.0) gm/dL Hct (34.0-46.0) % MCV (80.0-100.0) fL Lymphocytes # (1.0-4.8) k/uL Sodium (137-145) mmol/L BUN (7-17) mg/dL Creatinine (0.52-1.04) mg/dL Glucose (74-99) mg/dL POC Glucose (mg/dL) 206 H 208 H (70-110) mg/dL Calcium (8.4-10.2) mg/dL Phosphorus (2.5-4.5) mg/dL Assessment and Plan Assessment: Acute respiratory failure secondary to seizure-like activity, requiring intubation and mechanical ventilation, with successful extubation on 12/14/2021. Patient was intubated on 12/11/2021. Acute on chronic hypoxemic respiratory failure secondary to COPD, and acute diastolic CHF. Possible aspiration pneumonia. Acute Escherichia coli urinary tract infection. Chronic tobacco use. History of left lower extremity DVT. Chronic back pain. History of gastroesophageal reflux disease. Acute kidney injury, requiring daily hemodialysis,S/P permanent hemodialysis catheter placement on December 18. Plan: Plan dated 12/17/2021. The patient is seen, interviewed, and examined, and room 251. She remains on 3 L of oxygen. She's getting daily hemodialysis. A dialysis catheter will be placed today. She continues on Zosyn for Escherichia coli urinary tract infection, and possible aspiration pneumonia. Labs, x-rays, medications are reviewed. Prognosis is certainly guarded. We will continue follow the patient and make recommendations along the way. The patient could be considered for transfer out of the intensive care unit. Plan dated 12/18/2021. The patient will apparently receive a permanent hemodialysis catheter today. She is on 3 L. No IV fluids. Labs, x-rays, and medications are reviewed. She remains on updrafts, she also remains on Zosyn. Corticosteroids can be discontinued. Additional recommendations and suggestions are forthcoming. The patient's budesonide and formoterol can be discontinued in favor of Symbicort. The patient continues on albuterol sulfate, and ipratropium bromide. Plan dated 12/19/2021. The patient had a permanent hemodialysis catheter placed on December 18. She's currently on 4 L of oxygen, with saturations of 96%. Clinically, she looks reasonably stable. She denies any shortness of breath. Medications are reviewed. Everything appears to be appropriate. Labs, x-rays, and medications are all reviewed. We will continue to follow the patient and make recommendations along the way. The patient can be transferred out to the general medical floor. Plan dated 12/20/2021. A permanent hemodialysis catheter was placed. Clinically, the patient looks well today. She was having some difficulty with her breathing yesterday, and she received additional medications for her underlying COPD. Currently, she is on 2 L. She's not receiving any IV fluids. Labs, x-rays, and medications are reviewed. The patient may be discharged possibly by tomorrow. We will continue to follow make recommendations along the way. Time with Patient: Less than 30
[2021-12-20 16:33] LABS: Glucose,Whole Blood 263 mg/dL (70-110)
[2021-12-20] MEDS: FORMOTEROL FUMARATE 20 MCG/2 ML NEBU INHALATION SCH (19:48)
[2021-12-20] MEDS: BUDESONIDE 1 MG/2 ML NEBU INHALATION SCH (19:48)
[2021-12-20 21:17] LABS: Glucose,Whole Blood 196 mg/dL (70-110)
[2021-12-21] MEDS: methylPREDNISolone SOD SUCCI 40 MG/ML 1 ML VIAL IV SCH ×4 (06:02→23:24)
--- NOTE | 2021-12-21 06:30 | P.PN ---
Subjective Progress Note Date: 12/20/21 This is a 71-year-old female who was recently admitted with change in mental status and increased hypoxia and shortness of breath and being closely monitored. Multiple medical consultations following and patient had worsening hypoxia and abnormal ABG and brought to the ICU and patient was ultimately pl aced on mechanical vent. Patient is maintained on IV Zosyn and also emergently received a temporary dialysis catheter and is undergoing hemodialysis with nephrology following closely. Patient's kidney functions worsened and emergently started on dialysis. Patient is on mechanical vent with FiO2 of 35% with PEEP of 5. Patient was initiated on emergent dialysis last night and receiving again today. 12/13/2021 Patient is seen and evaluated in follow-up in the ICU with multiple medical consultations following. Patient continues on mechanical vent under sedation FiO2 is 35% with a PEEP of 5. Chest x-ray today shows chronic emphysematous changes with small to tiny bilateral pleural effusions and left basilar acute infiltrate and/or atelectasis noted. Patient also underwent EEG and was a bnormal with periods of suppression suggesting generalized cerebral dysfunction that can be seen in encephalopathy or medication induced. No epileptiform discharges noted. Patient continues on hemodialysis, sodium bicarb drip with nephrology following closely. Patient also continues on DuoNeb treatments along with IV steroids and will continue. Patient is on antibiotics and sputum cultures pending and preliminary cultures of blood thus far negative. Urine culture showed E. coli. 12/14/2021 Patient is seen in follow-up this morning continues on mechanical vent in the ICU with an FiO2 of 35% and PEEP is 5. Multiple medical consultations following including nephrology and patient has been receiving hemodialysis daily. Patient is continued on DuoNeb treatments along with subcutaneous Lovenox, IV steroids high-dose, Zosyn, and propofol is currently off. Attempting sedation holidays with possibly weaning. Rest x-ray this morning shows no change from one day prior with left basilar airspace opacification and possible left pleural effusion. Urology has been consulted for nephrosclerosis with history of left renal atrophy with severe hydrocele is noted of the left kidney and CT abdomen pelvis without contrast is ordered. Recommending to continue with indwelling Santos catheter. Cardiology also consulted for the elevated troponins recommend to continue with current cardiac medications and continue telemetry monitoring. The pressures are soft although not requiring pressor support at this time. Blood cultures have been negative and patient's urine culture was E. coli gram stained sputum culture currently pending at this time. Per nursing staff plan is for extubation possibly today. 12/15/2021 Patient is seen today and is on 2L via NC tolerating. Extubated yesterday. Patient is to receive dialysis again today with nephrology following. Discussion about possible outpatient dialysis being needed as patient is not producing urine. To continue over the next few days and monitor closely. Maintained on breathing treatments along with IV steroids and antibiotics. Patient is in the ICU although is a down grade to the med surg unit. Afebrile and denies worsening shortness of breath or chest pains. Tolerating diet. 12/16/2021 Patient is seen in follow up and continuing on 2L via nc. Patient is currently on hemodialysis and will need to discuss with nephrology about outpatient dialysis. Patient to continue with duonebs and IS use. Encouraged increased activity as tolerated and will have PT/OT evaluate. Encourage oral intake, renal diet. Patient is continued on IV antibiotics as well. Patient to receive lasix today. Awaiting med surg bed. Afebrile and denies worsening shortness of breath or chest pains. Tolerating diet. 12/17/2021 Patient is seen today in the ICU and awaiting a down grade to selective. Receiving hemodialysis today although blood pressures are uncontrolled and mostly ultrafiltration today. Plan is for permacath placement in the am with vascular surgery. Continues on IV steroids and duonebs and will continue. Wean Fi02 as tolerated and currently on 2 L via NC. Afebrile and denies chest pain or worsening shortness of breath. Encouraged oral intake and increased activity as tolerated. PT/OT to follow for possible ECF. 12/18/2021 Patient is seen and evaluated in follow-up with nephrology following closely. Patient is scheduled for permacath placement today with Dr. Jesus which is currently pending. Patient is continued on Zosyn and steroids have been discontinued. Patient also continues with DuoNeb treatments and will continue. Patient is on 2-3 L via nasal cannula with oxygen saturations of 94%. Hemoglobin stable today at 8.3, kidney function slightly improved with a BUN of 3.32 and closely monitoring blood sugars. Patient continues with weakness with physical therapy recommending rehab and initially agreeable although now family would like the patient to return home and is agreeable to home care. We'll have physical therapy work with the patient and social work also following and arranging for outpatient hemodialysis. Recommend follow-up labs and chest x-ray in the a.m. Wean FiO2 as tolerated and continue current medication regimen. 12/19/2021 Patient is seen today in the ICU and continues to await a bed on med surg. Maintained on hemodialysis. Patient had some nausea this am and reports not feeling really hungry. Will add zofran and encouraged small meals. Patient with weakness and working with PT/OT will discuss with other consultations as well as case management about outpatient dialysis. Recommend repeat labs in am. 12/20/2021 Patient is seen this morning with family at the bedside. Patient is looking improved today and sitting up in the chair eating and tolerating. No dialysis today and will receive in the am. Outpatient dialysis is arranged for outpatient. Family requesting chair time and information about dialysis as they will be transporting her there. Going home with home care once cleared by consultations. Continued on 2L which she has outpatient along with iv steroids and duonebs and will continue. No reports of chest pain or shortness of breath. Afebrile and tolerating diet today. All medications have been reviewed PHYSICAL EXAMINATION: GENERAL: The patient is awake, alert and oriented x2. Elderly female HEENT: Pupils are round and equally reacting to light. EOMI. no scleral icterus. No conjunctival pallor. Normocephalic, atraumatic. No pharyngeal erythema. No thyromegaly. CARDIOVASCULAR: S1 and S2 muffled PULMONARY: diminished breath sounds bilaterally with scattered rhonchi and faint crackles noted. ABDOMEN: soft. Nontender on exam. non-distended, normoactive bowel sounds. No palpable organomegaly. MUSCULOSKELETAL: No joint swelling or deformity. EXTREMITIES: No cyanosis, clubbing, or pedal edema. NEUROLOGICAL: Gross neurological examination did not reveal any focal deficits. Diffuse weakness SKIN: No rashes. Assessment: Change in mental status, acute metabolic encephalopathy, improving Acute on chronic hypoxic respiratory failure requiring mechanical ventilation on 12/11/2021, extubated on 12/14/2021 Congestive heart failure and chronic obstructive pulmonary disease, acute exacerbation Acute renal failure requiring emergent dialysis catheter placement and hemodialysis History of Degenerative joint disease History of DVT Gastroesophageal reflux disease Osteoarthritis Chronic bullous emphysema history Former smoker of 40+ years GI prophylaxis DVT prophylaxis Full code Plan: Recommend to continue with current medications and management and continues in the ICU with multiple medical consultations following. Patient is a down grade to med-surg once a bed becomes available. Patient is also on hemodialysis and received permacath. Patient is receiving IV steroids and will continue along with DuoNeb treatments. recommend physical therapy daily. Patient and family now would like to take the patient home with home care. Case management has arranged outpatient dialysis. Due to multiple complex medical issues, prognosis is extremely guarded. Possible discharge in the next 24-48 hours The impression and plan of care has been dictated by Carmen Yeboah, Nurse Practitioner as directed. Dr. Saadia MD I have performed a history and examination and MDM of this patient, discussed the same with the dictator, and agree with the dictator's assessment and plan as written ,documented as a scribe. Based on total visit time, I have performed more than 50% of the visit. Objective - Vital Signs Vital signs: Vital Signs Temp 98.9 F 12/20/21 08:00 Pulse 101 H 12/20/21 08:00 Resp 14 12/20/21 08:00 BP 118/55 12/20/21 08:00 Pulse Ox 94 L 12/20/21 08:00 FiO2 50 12/19/21 20:13 Intake & Output 12/19/21 12/20/21 12/20/21 18:59 06:59 18:59 Intake Total 550 250 Output Total 1304 1 Balance -754 249 Weight 63.3 kg Intake: Oral 250 250 Hemodialysis 300 Output: Stool 1 1 Hemodialysis 1303 Other: # Voids 0 ABP, PAP, CO, CI - Last Documented Arterial Blood Pressure 117/54 - Labs CBC & Chem 7: 12/20/21 06:32 12/20/21 06:32 Labs: Abnormal Lab Results - Last 24 Hours (Table) 12/19/21 12/19/21 12/19/21 Range/Units 11:33 11:42 17:28 WBC (3.8-10.6) k/uL RBC (3.80-5.40) m/uL Hgb (11.4-16.0) gm/dL Hct (34.0-46.0) % MCV (80.0-100.0) fL Lymphocytes # (1.0-4.8) k/uL Sodium (137-145) mmol/L BUN (7-17) mg/dL Creatinine (0.52-1.04) mg/dL Glucose (74-99) mg/dL POC Glucose (mg/dL) 128 H 126 H 130 H (70-110) mg/dL Calcium (8.4-10.2) mg/dL 12/19/21 12/20/21 12/20/21 Range/Units 20:15 06:32 06:32 WBC 3.5 L (3.8-10.6) k/uL RBC 2.27 L (3.80-5.40) m/uL Hgb 7.5 L (11.4-16.0) gm/dL Hct 23.2 L (34.0-46.0) % MCV 101.8 H (80.0-100.0) fL Lymphocytes # 0.4 L (1.0-4.8) k/uL Sodium 136 L (137-145) mmol/L BUN 45 H (7-17) mg/dL Creatinine 3.28 H (0.52-1.04) mg/dL Glucose 141 H (74-99) mg/dL POC Glucose (mg/dL) 117 H (70-110) mg/dL Calcium 7.5 L (8.4-10.2) mg/dL 12/20/21 Range/Units 07:00 WBC (3.8-10.6) k/uL RBC (3.80-5.40) m/uL Hgb (11.4-16.0) gm/dL Hct (34.0-46.0) % MCV (80.0-100.0) fL Lymphocytes # (1.0-4.8) k/uL Sodium (137-145) mmol/L BUN (7-17) mg/dL Creatinine (0.52-1.04) mg/dL Glucose (74-99) mg/dL POC Glucose (mg/dL) 138 H (70-110) mg/dL Calcium (8.4-10.2) mg/dL
[2021-12-21 06:41] LABS: Glucose,Whole Blood 182 mg/dL (70-110)
[2021-12-21] MEDS: INSULIN ASPART (NovoLOG) 100 UNIT/ML VIAL SQ SCH ×4 (06:43→20:00)
[2021-12-21] MEDS: BUDESONIDE 1 MG/2 ML NEBU INHALATION SCH ×2 (07:37→19:08)
[2021-12-21] MEDS: FORMOTEROL FUMARATE 20 MCG/2 ML NEBU INHALATION SCH ×2 (07:37→19:08)
[2021-12-21] MEDS: IPRATROPIUM-ALBUTEROL 3 ML NEB INHALATION SCH ×4 (07:37→19:08)
--- NOTE | 2021-12-21 09:28 | P.PN ---
Subjective Patient is seen in follow-up for acute kidney injury. Oliguric. Hemodialysis dependent. Oral intake is good. Hemodynamically stable. Denies chest pain or shortness of breath. On nasal cannula. No active complaints. No problems with dialysis. Vital signs are stable. General: Awake. No acute distress. HEENT: Head exam is unremarkable. On nasal cannula. LUNGS: Breath sounds decreased. HEART: Rate and Rhythm are regular. ABDOMEN: Soft, no distention. EXTREMITITES: Trace edema. Objective - Vital Signs Vital signs: Vital Signs Temp 97.9 F 12/21/21 01:13 Pulse 90 12/21/21 07:55 Resp 16 12/21/21 01:13 BP 148/81 12/21/21 01:13 Pulse Ox 95 12/21/21 01:13 FiO2 50 12/21/21 08:50 Intake & Output 12/20/21 12/21/21 12/21/21 18:59 06:59 18:59 Intake Total 350 300 Output Total 1 Balance 350 299 Weight 63.3 kg 57.9 kg Intake: Oral 350 300 Output: Stool 1 Other: # Voids 1 # Bowel Movements 1 ABP, PAP, CO, CI - Last Documented Arterial Blood Pressure 117/54 - Labs CBC & Chem 7: 12/20/21 06:32 12/20/21 06:32 Labs: Abnormal Lab Results - Last 24 Hours (Table) 12/20/21 12/20/21 12/20/21 Range/Units 06:32 11:07 12:03 POC Glucose (mg/dL) 206 H 208 H (70-110) mg/dL Phosphorus 6.6 H (2.5-4.5) mg/dL 12/20/21 12/20/21 12/21/21 Range/Units 16:30 21:15 06:39 POC Glucose (mg/dL) 263 H 196 H 182 H (70-110) mg/dL Phosphorus (2.5-4.5) mg/dL Assessment and Plan Plan: Assessment: 1. Acute kidney injury secondary to ATN secondary to septic shock. Oliguric. Started on hemodialysis 12/21/2021. Baseline creatinine 1-1.3 from August and September 2021. 2. Septic shock secondary to E. coli UTI and aspiration pneumonia s/p antibiotics. 3. Left hydronephrosis. Appears to be chronic with atrophic left kidney. No interventions planned. 4. Chronic kidney disease stage IIIa secondary to nephrosclerosis/obx uropathy with solitary functioning kidney. Baseline creatinine 1-1.3. 5. Anemia of chronic kidney disease. On Aranesp. Iron replete. 6. Metabolic acidosis secondary to acute kidney injury. Improved postdialysis. 7. Hyperphosphatemia secondary to acute kidney injury. On PhosLo. Phosphorus 6.6 dated 12/15/2021. Plan: Hemodialysis today. Maintain on Friday schedule. No response in urine output despite IV Lasix. Continue to monitor for renal recovery. No UA available. Patient is anuric. Serologies negative. Increase dose of PhosLo. Permacath placed 12/18/2021. Outpatient dialysis to be set up by case management. Will consider kidney biopsy outpatient if no recovery of renal function.
[2021-12-21] MEDS: APIXABAN 5 MG TAB PO SCH ×2 (10:04→20:00)
[2021-12-21] MEDS: amLODIPine 5 MG TAB PO SCH (10:04)
[2021-12-21] MEDS: hydrALAZINE HCL 50 MG TAB PO SCH ×3 (10:04→20:00)
[2021-12-21] MEDS: PANTOPRAZOLE 40 MG/10 ML VIAL IV SCH (10:04)
[2021-12-21 11:14] LABS: Glucose,Whole Blood 148 mg/dL (70-110)
--- NOTE | 2021-12-21 11:30 | P.PN ---
Subjective Progress Note Date: 12/21/21 Principal diagnosis: Acute kidney injury, respiratory failure. Patient was reevaluated today on 12/14/21, patient remains in the ICU, intubated and mechanically ventilated. She is on assist control rate of 22, tidal volume is 450 FiO2 35% and PEEP of 5.Patient is on Precedex at 0.3 mcg/kg per hour. Patient is awake, arousable, follows simple instructions, and her labs were r eviewed she had a relatively normal CBC WBC is 4.1 hemoglobin is 7.9. Basic metabolic profile is normal however her BUN is 56 creatinine 3.65, patient is scheduled to undergo hemodialysis again today. Chest x-ray showed mostly stable left basilar opacity consistent with infiltrate. Right side seems to be much clearer today. Urine cultures were positive for E. coli on admission. Otherwise the rest of the cultures including blood and sputum were negative so far. Patient remains on bronchodilators, she is also on methylprednisolone 60 mg IV push every 6 hours, and she is on Zosyn. Considering the patient is awake, arousable, and considering she is appropriate mentally, I recommended a short trial of pressure support and CPAP with a pressure support of 10 while I was at bedside. Checking on the patient with pressure support and CPAP mode of mechanical ventilation, and half an hour later patient continued to tolerate that quite well, and her weaning parameters look reasonable, went ahead and recommended extubating the patient. Patient was extubated uneventfully, placed on nasal cannula. Patient is to have hemodialysis today. And she was seen yesterday by urology for left sided hydronephrosis, again this is being addressed by urology on the case Reevaluated today on 12/15/21, a shunt remains in the ICU, she was extubated yesterday uneventfully. She is on 2 L nasal cannula, and her O2 sats is 94% patient is yet to receive hemodialysis today. But overall the wound. No cough no wheezing no shortness of breath. CBC is relatively unremarkable WBC has 5.4 hemoglobin 8.3 left lites are normal BUN is 61 creatinine 3.34. Chest x-ray showed chronic emphysematous change, left basilar infiltrate or atelectasis is noted I suspect it is bibasilar infiltrates. Left more so than right Reevaluated today on 12/16/21, patient remains in the ICU as an overflow, she tolerated the extubation over the last few days quite well, remains on 3 L nasal cannula, O2 sats is 95%, patient is not any distress, she is still undergoing hemodialysis for acute kidney injury. Patient has no fever, she is relatively asymptomatic, blood pressure is 143/78. WBC count is 5.9 hemoglobin 8.7 and electrolytes are normal BUN is 52 creatinine 3.0 Progress note dated 12/17/2021. 71-year-old female seen in the intensive care unit, room 251. She was admitted to the hospital on December 10, with acute kidney injury. She developed respiratory failure, required intubation, on December 11, and was successfully extubated on December 14. Currently, she is on 3 L of oxygen. She's getting saline at KVO. She's had hemodialysis for the last 5 days. A permanent dialysis catheter will be placed today. The patient is a patient who can be transferred out to the medical/surgical floor, without telemetry. She's currently on Zosyn for Escherichia coli urinary tract infection. White count 4.9, hemoglobin 8.4, hematocrit 27.1, and platelet count 253,000. Sodium 139, potassium 4.7, chlorides 102, CO2 23, anion gap 14, BUN 78, and creatinine 5.29. No chest x-ray noted. Progress note dated 12/18/2021. 71-year-old female seen in the intensive care unit, room 251. She was admitted to the hospital December 10, with acute kidney injury. She developed respiratory failure, and required intubation on December 11, and was successfully extubated on 12/14/2021. Currently, she is on 3 L of oxygen. She's not receiving any IV fluids. She is to receive a permanent hemodialysis catheter today. She had hemodialysis yesterday. Not sure about hemodialysis today. White count 4.6, hemoglobin 8.3, hematocrit 26.7, and platelet count 261,000. Sodium 136, potassium 4.5, chlorides 103, CO2 22, anion gap 11, BUN 48, and creatinine 3.32. Urine, on December 10 was positive for Escherichia coli. No recent chest x-ray to report. Progress note dated 12/19/2021. 71-year-old female seen in room 251. She remains in the intensive care unit. Yesterday, December 18, she had a hemodialysis catheter placed. She's currently on 4 L of oxygen. She's not receiving any IV fluids. No new laboratory data today. Glucose 126. The patient appears reasonably stable. She denies any shortness of breath, wheezing, chest tightness, cough, or phlegm production. No chest pain or chest discomfort. No fever or chills. Progress note dated 12/20/2021. 71-year-old female seen again, in room 251. The patient is doing reasonably well. She is on 2 L of oxygen. No IV fluids. Yesterday, the patient developed shortness of breath, likely related to her underlying COPD. She was given Pulmicort, formoterol, DuoNeb nebs, and Solu-Medrol. She appears better today. Labs today include a white count 3.5, hemoglobin 7.5, hematocrit 23.2, and a normal platelet count. Sodium 136, potassium 4, chlorides 100, CO2 26, anion gap 10, BUN 45, and creatinine 3.28. Chest x-ray from yesterday shows changes of COPD, and some diffuse interstitial edema/CHF. Progress note dated 12/21/2021. 71-year-old female, again seen in room 251. She is currently undergoing dialysis. She has no IV fluids. She's currently on BiPAP with settings of 14/5 and 50%. She's only on BiPAP which she is undergoing hemodialysis. Normally, she is on 2 L. She had an uneventful night according to the nurse. No new labs today. Objective - Vital Signs Vital signs: Vital Signs Temp 97.9 F 12/21/21 01:13 Pulse 90 12/21/21 07:55 Resp 24 12/21/21 08:00 BP 148/81 12/21/21 01:13 Pulse Ox 95 12/21/21 01:13 FiO2 50 12/21/21 08:50 Intake & Output 12/20/21 12/21/21 12/21/21 18:59 06:59 18:59 Intake Total 350 300 Output Total 1 Balance 350 299 Weight 63.3 kg 57.9 kg Intake: Oral 350 300 Output: Stool 1 Other: # Voids 1 # Bowel Movements 1 ABP, PAP, CO, CI - Last Documented Arterial Blood Pressure 117/54 - Exam No acute distress, oriented 3. Currently on BiPAP. Undergoing hemodialysis. HEENT examination is grossly unremarkable. Neck supple. Full range of motion. No adenopathy thyromegaly or neck vein distention. Cardiovascular examination reveals regular rhythm rate. S1-S2 normal. No S3 or S4. No discernible murmur noted. Heart rate 90 bpm. Heart sounds are distant. Lungs reveal clear breath sounds. Breath sounds are equal bilaterally. No adventitious lung sounds including wheezes rhonchi or crackles. Saturations are 98 %. Abdomen soft bowel sounds are heard. No masses or tenderness. Extremities are intact. No cyanosis clubbing or edema. Skin is without rash or lesion. Neurologic examination is brief but nonfocal. - Labs CBC & Chem 7: 12/20/21 06:32 12/20/21 06:32 Labs: Abnormal Lab Results - Last 24 Hours (Table) 12/20/21 12/20/21 12/20/21 Range/Units 12:03 16:30 21:15 POC Glucose (mg/dL) 208 H 263 H 196 H (70-110) mg/dL 12/21/21 12/21/21 Range/Units 06:39 11:12 POC Glucose (mg/dL) 182 H 148 H (70-110) mg/dL Assessment and Plan Assessment: Acute respiratory failure secondary to seizure-like activity, requiring int ubation and mechanical ventilation, with successful extubation on 12/14/2021. Patient was intubated on 12/11/2021. Acute on chronic hypoxemic respiratory failure secondary to COPD, and acute diastolic CHF. Possible aspiration pneumonia. Acute Escherichia coli urinary tract infection. Chronic tobacco use. History of left lower extremity DVT. Chronic back pain. History of gastroesophageal reflux disease. Acute kidney injury, requiring daily hemodialysis,S/P permanent hemodialysis catheter placement on December 18. Plan: Plan dated 12/17/2021. The patient is seen, interviewed, and examined, and room 251. She remains on 3 L of oxygen. She's getting daily hemodialysis. A dialysis catheter will be placed today. She continues on Zosyn for Escherichia coli urinary tract infection, and possible aspiration pneumonia. Labs, x-rays, medications are reviewed. Prognosis is certainly guarded. We will continue follow the patient and make recommendations along the way. The patient could be considered for transfer out of the intensive care unit. Plan dated 12/18/2021. The patient will apparently receive a permanent hemodialysis catheter today. She is on 3 L. No IV fluids. Labs, x-rays, and medications are reviewed. She remains on updrafts, she also remains on Zosyn. Corticosteroids can be discontinued. Additional recommendations and suggestions are forthcoming. The patient's budesonide and formoterol can be discontinued in favor of Symbicort. The patient continues on albuterol sulfate, and ipratropium bromide. Plan dated 12/19/2021. The patient had a permanent hemodialysis catheter placed on December 18. She's currently on 4 L of oxygen, with saturations of 96%. Clinically, she looks reasonably stable. She denies any shortness of breath. Medications are reviewed. Everything appears to be appropriate. Labs, x-rays, and medications are all reviewed. We will continue to follow the patient and make recommendations along the way. The patient can be transferred out to the general medical floor. Plan dated 12/20/2021. A permanent hemodialysis catheter was placed. Clinically, the patient looks well today. She was having some difficulty with her breathing yesterday, and she received additional medications for her underlying COPD. Currently, she is on 2 L. She's not receiving any IV fluids. Labs, x-rays, and medications are reviewed. The patient may be discharged possibly by tomorrow. We will continue to follow make recommendations along the way. Plan dated 12/21/2021. The patient is undergoing hemodialysis as we speak. While on hemodialysis, the patient prefers BiPAP. Normally, she is on 2 L. No new labs today. No new x- rays today. The patient is awaiting a bed out on the general medical floor. We will continue to follow and make recommendations along the way. Prognosis is guarded. No additional recommendations today. Time with Patient: Less than 30
[2021-12-21] MEDS: DARBEPOETIN ALFA 60 MCG/0.3 ML SYRINGE SQ SCH (11:47)
[2021-12-21] MEDS: CALCIUM ACETATE 667 MG TAB PO SCH ×3 (11:48→16:48)
[2021-12-21] MEDS: DEXMEDETOMIDINE/0.9% NACL(PMX) 400 MCG in EMPTY BAG 1 BAG IV SCH (12:52)
--- NOTE | 2021-12-21 16:04 | P.PN ---
Subjective Progress Note Date: 12/21/21 This is a 71-year-old female who was recently admitted with change in mental status and increased hypoxia and shortness of breath and being closely monitored. Multiple medical consultations following and patient had worsening hypoxia and abnormal ABG and brought to the ICU and patient was ultimately pl aced on mechanical vent. Patient is maintained on IV Zosyn and also emergently received a temporary dialysis catheter and is undergoing hemodialysis with nephrology following closely. Patient's kidney functions worsened and emergently started on dialysis. Patient is on mechanical vent with FiO2 of 35% with PEEP of 5. Patient was initiated on emergent dialysis last night and receiving again today. 12/13/2021 Patient is seen and evaluated in follow-up in the ICU with multiple medical consultations following. Patient continues on mechanical vent under sedation FiO2 is 35% with a PEEP of 5. Chest x-ray today shows chronic emphysematous changes with small to tiny bilateral pleural effusions and left basilar acute infiltrate and/or atelectasis noted. Patient also underwent EEG and was a bnormal with periods of suppression suggesting generalized cerebral dysfunction that can be seen in encephalopathy or medication induced. No epileptiform discharges noted. Patient continues on hemodialysis, sodium bicarb drip with nephrology following closely. Patient also continues on DuoNeb treatments along with IV steroids and will continue. Patient is on antibiotics and sputum cultures pending and preliminary cultures of blood thus far negative. Urine culture showed E. coli. 12/14/2021 Patient is seen in follow-up this morning continues on mechanical vent in the ICU with an FiO2 of 35% and PEEP is 5. Multiple medical consultations following including nephrology and patient has been receiving hemodialysis daily. Patient is continued on DuoNeb treatments along with subcutaneous Lovenox, IV steroids high-dose, Zosyn, and propofol is currently off. Attempting sedation holidays with possibly weaning. Rest x-ray this morning shows no change from one day prior with left basilar airspace opacification and possible left pleural effusion. Urology has been consulted for nephrosclerosis with history of left renal atrophy with severe hydrocele is noted of the left kidney and CT abdomen pelvis without contrast is ordered. Recommending to continue with indwelling Santos catheter. Cardiology also consulted for the elevated troponins recommend to continue with current cardiac medications and continue telemetry monitoring. The pressures are soft although not requiring pressor support at this time. Blood cultures have been negative and patient's urine culture was E. coli gram stained sputum culture currently pending at this time. Per nursing staff plan is for extubation possibly today. 12/15/2021 Patient is seen today and is on 2L via NC tolerating. Extubated yesterday. Patient is to receive dialysis again today with nephrology following. Discussion about possible outpatient dialysis being needed as patient is not producing urine. To continue over the next few days and monitor closely. Maintained on breathing treatments along with IV steroids and antibiotics. Patient is in the ICU although is a down grade to the med surg unit. Afebrile and denies worsening shortness of breath or chest pains. Tolerating diet. 12/16/2021 Patient is seen in follow up and continuing on 2L via nc. Patient is currently on hemodialysis and will need to discuss with nephrology about outpatient dialysis. Patient to continue with duonebs and IS use. Encouraged increased activity as tolerated and will have PT/OT evaluate. Encourage oral intake, renal diet. Patient is continued on IV antibiotics as well. Patient to receive lasix today. Awaiting med surg bed. Afebrile and denies worsening shortness of breath or chest pains. Tolerating diet. 12/17/2021 Patient is seen today in the ICU and awaiting a down grade to selective. Receiving hemodialysis today although blood pressures are uncontrolled and mostly ultrafiltration today. Plan is for permacath placement in the am with vascular surgery. Continues on IV steroids and duonebs and will continue. Wean Fi02 as tolerated and currently on 2 L via NC. Afebrile and denies chest pain or worsening shortness of breath. Encouraged oral intake and increased activity as tolerated. PT/OT to follow for possible ECF. 12/18/2021 Patient is seen and evaluated in follow-up with nephrology following closely. Patient is scheduled for permacath placement today with Dr. Jesus which is currently pending. Patient is continued on Zosyn and steroids have been discontinued. Patient also continues with DuoNeb treatments and will continue. Patient is on 2-3 L via nasal cannula with oxygen saturations of 94%. Hemoglobin stable today at 8.3, kidney function slightly improved with a BUN of 3.32 and closely monitoring blood sugars. Patient continues with weakness with physical therapy recommending rehab and initially agreeable although now family would like the patient to return home and is agreeable to home care. We'll have physical therapy work with the patient and social work also following and arranging for outpatient hemodialysis. Recommend follow-up labs and chest x-ray in the a.m. Wean FiO2 as tolerated and continue current medication regimen. 12/19/2021 Patient is seen today in the ICU and continues to await a bed on med surg. Maintained on hemodialysis. Patient had some nausea this am and reports not feeling really hungry. Will add zofran and encouraged small meals. Patient with weakness and working with PT/OT will discuss with other consultations as well as case management about outpatient dialysis. Recommend repeat labs in am. 12/20/2021 Patient is seen this morning with family at the bedside. Patient is looking improved today and sitting up in the chair eating and tolerating. No dialysis today and will receive in the am. Outpatient dialysis is arranged for outpatient. Family requesting chair time and information about dialysis as they will be transporting her there. Going home with home care once cleared by consultations. Continued on 2L which she has outpatient along with iv steroids and duonebs and will continue. No reports of chest pain or shortness of breath. Afebrile and tolerating diet today. 12/21/2021 Patient is seen and evaluated in follow-up this morning currently undergoing hemodialysis. Patient feels short of breath and prefers being on BiPAP during dialysis normally maintained on 2 L via nasal cannula. Patient reports she would like to go home. Unfortunately hemodialysis outpatient will not be initiated until Friday and so will require hemodialysis on Friday which is being arranged. Patient received an extra dose today. Nephrology following diana contreras and has cleared the patient for outpatient dialysis and close outpatient follow-up within the next week. Patient with weakness although family prefers to take the patient home and will continue with home care. Will obtain chest x- ray. No new labs from today and will repeat labs. Patient is afebrile denies chest pain or palpitations. Patient is tolerating diet with no reports of nausea or vomiting noted. Review of systems: Constitutional: No reports of fatigue, fever, or chills Cardiovascular: No reports of chest pain or palpitations Respiratory: No reports of worsening shortness of breath or cough GI: No reports of nausea, vomiting, or diarrhea : No reports of dysuria or retention Neurovascular: reports of generalized weakness All medications have been reviewed PHYSICAL EXAMINATION: GENERAL: The patient is awake, alert and oriented x2-3. Elderly female HEENT: Pupils are round and equally reacting to light. EOMI. no scleral icterus. No conjunctival pallor. Normocephalic, atraumatic. No pharyngeal erythema. No thyromegaly. CARDIOVASCULAR: S1 and S2 muffled PULMONARY: diminished breath sounds bilaterally with scattered rhonchi and faint crackles noted. ABDOMEN: soft. Nontender on exam. non-distended, normoactive bowel sounds. No palpable organomegaly. MUSCULOSKELETAL: No joint swelling or deformity. EXTREMITIES: No cyanosis, clubbing, or pedal edema. NEUROLOGICAL: Gross neurological examination did not reveal any focal deficits. Diffuse weakness SKIN: No rashes. Assessment: Change in mental status, acute metabolic encephalopathy, improving Acute on chronic hypoxic respiratory failure requiring mechanical ventilation on 12/11/2021, extubated on 12/14/2021 Congestive heart failure and chronic obstructive pulmonary disease, acute exacerbation Acute renal failure requiring emergent dialysis catheter placement and hemodialysis History of Degenerative joint disease History of DVT Gastroesophageal reflux disease Osteoarthritis Chronic bullous emphysema history Former smoker of 40+ years GI prophylaxis DVT prophylaxis Full code Plan: Recommend to continue with current medications and management and continues in the ICU with multiple medical consultations following. Patient is a down grade to med-surg once a bed becomes available. Patient is also on hemodialysis and received permacath. Patient is receiving IV steroids and will continue along with DuoNeb treatments. Continue prednisone taper on discharge. recommend physical therapy daily. Patient and family now would like to take the patient home with home care. Case management has arranged outpatient dialysis. Family would like to discuss further with case management with questions and concerns regarding rehab and this was passed along to case management to follow-up in morning with daughter Graciela who is the person to notify on the medical record. Discussion was had over the phone with daughter as well regarding chair time and dialysis place. Chest x-ray is ordered and pending at this time. Recommend repeat labs in the a.m. Due to multiple complex medical issues, prognosis is extremely guarded. Possible discharge in the next 24 hours The impression and plan of care has been dictated by Carmen Yeboah, Nurse Practitioner as directed. Dr. Roni MD I have performed a history and examination and MDM of this patient, discussed the same with the dictator, and agree with the dictator's assessment and plan as written ,documented as a scribe. Based on total visit time, I have performed more than 50% of the visit. Objective - Vital Signs Vital signs: Vital Signs Temp 98.7 F 12/21/21 14:00 Pulse 104 H 12/21/21 14:00 Resp 17 12/21/21 14:00 BP 138/59 12/21/21 14:00 Pulse Ox 94 L 12/21/21 14:00 FiO2 59 12/21/21 11:28 Intake & Output 12/20/21 12/21/21 12/21/21 18:59 06:59 18:59 Intake Total 350 300 300 Output Total 1 3300 Balance 350 299 -3000 Weight 63.3 kg 57.9 kg Intake: Oral 350 300 Hemodialysis 300 Output: Stool 1 Hemodialysis 3300 Other: # Voids 1 # Bowel Movements 1 ABP, PAP, CO, CI - Last Documented Arterial Blood Pressure 117/54 - Labs CBC & Chem 7: 12/20/21 06:32 12/20/21 06:32 Labs: Abnormal Lab Results - Last 24 Hours (Table) 12/20/21 12/20/21 12/21/21 Range/Units 16:30 21:15 06:39 POC Glucose (mg/dL) 263 H 196 H 182 H (70-110) mg/dL 12/21/21 Range/Units 11:12 POC Glucose (mg/dL) 148 H (70-110) mg/dL
--- NOTE | 2021-12-21 16:07 | XR ---
EXAMINATION TYPE: XR chest 1V portable DATE OF EXAM: 12/21/2021 4:00 PM COMPARISON: Chest radiographs from 12/19/2021 TECHNIQUE: XR chest 1V portable Portable AP radiograph of the chest. CLINICAL INDICATION:Female, 71 years old with history of shortness of breath; FINDINGS: Lungs/Pleura: There is flattening of the diaphragm with increased lucency of the lungs. No evidence o f pneumothorax, pleural effusion or focal consolidation. Interstitial lung markings are increased in the lung bases. Pulmonary vascularity: Unremarkable. Heart/mediastinum: Cardiomediastinal silhouette is unremarkable. Musculoskeletal: No acute osseous pathology. Other findings: None Lines/Tubes: Right internal jugular central venous catheter with distal tip at the cavoatrial junction. IMPRESSION: 1. Right central venous catheter tip in stable position. 2. COPD changes. 3. Similar basilar pulmonary fibrosis versus atelectasis.
[2021-12-21 16:21] LABS: Glucose,Whole Blood 202 mg/dL (70-110)
[2021-12-21 19:58] LABS: Glucose,Whole Blood 167 mg/dL (70-110)
[2021-12-21] MEDS: LACTATED RINGERS 1,000 ML IV SCH (23:04)
[2021-12-22] MEDS: IPRATROPIUM-ALBUTEROL 3 ML NEB INHALATION PRN (00:04)
[2021-12-22 04:34] LABS: Anisocytosis Slight; HCT 22.2 % (34.0-46.0); HGB 7.1 gm/dL (11.4-16.0); Hypochromasia Moderate; MCH 33.4 pg (25.0-35.0); MCHC 32.2 g/dL (31.0-37.0); MCV 103.6 fL (80.0-100.0); Macrocytosis Moderate; Mean Platelet Volume 8.4; Platelet Count 289 k/uL (150-450); RBC 2.14 m/uL (3.80-5.40); RDW 16.6 % (11.5-15.5); WBC 4.8 k/uL (3.8-10.6)
[2021-12-22 04:48] LABS: Calcium 8.8 mg/dL (8.4-10.2); Potassium 4.9 mmol/L (3.5-5.1)
[2021-12-22 05:00] LABS: Lymphocytes # (M) 0.24 k/uL (1.0-4.8); Neutrophils # (M) 4.46 k/uL (1.3-7.7); Neutrophils % (M) 93 %; Nucleated Red Blood Cells 0 /100 WBC (0-0); Total Cells Counted 100
[2021-12-22 06:41] LABS: Glucose,Whole Blood 211 mg/dL (70-110)
[2021-12-22] MEDS: CALCIUM ACETATE 667 MG TAB PO SCH (06:45)
[2021-12-22] MEDS: INSULIN ASPART (NovoLOG) 100 UNIT/ML VIAL SQ SCH ×2 (06:45→12:44)
[2021-12-22] MEDS: methylPREDNISolone SOD SUCCI 40 MG/ML 1 ML VIAL IV SCH (06:45)
[2021-12-22] MEDS: BUDESONIDE 1 MG/2 ML NEBU INHALATION SCH (07:37)
[2021-12-22] MEDS: FORMOTEROL FUMARATE 20 MCG/2 ML NEBU INHALATION SCH (07:37)
[2021-12-22] MEDS: IPRATROPIUM-ALBUTEROL 3 ML NEB INHALATION SCH ×2 (07:38→12:37)
[2021-12-22] MEDS: amLODIPine 5 MG TAB PO SCH (08:05)
[2021-12-22] MEDS: PANTOPRAZOLE 40 MG/10 ML VIAL IV SCH (08:05)
[2021-12-22] MEDS: hydrALAZINE HCL 50 MG TAB PO SCH (08:05)
[2021-12-22] MEDS: APIXABAN 5 MG TAB PO SCH (08:05)
--- NOTE | 2021-12-22 10:23 | P.PN ---
Subjective Patient is seen for follow-up for acute kidney injury currently hemodialysis dependent. Patient has underlying CK D as well. She is currently seen on hemodialysis. Patient remains oliguric. No significant complaints today. Objective - Vital Signs Vital signs: Vital Signs Temp 97.7 F 12/22/21 08:00 Pulse 96 12/22/21 08:00 Resp 22 12/22/21 08:00 BP 161/76 12/22/21 08:00 Pulse Ox 97 12/22/21 08:00 FiO2 59 12/21/21 11:28 Intake & Output 12/21/21 12/22/21 12/22/21 18:59 06:59 18:59 Intake Total 940 Output Total 3300 1 Balance -2360 -1 Weight 57.9 kg Intake: Oral 640 Hemodialysis 300 Output: Stool 1 Hemodialysis 3300 Other: # Voids 0 0 ABP, PAP, CO, CI - Last Documented Arterial Blood Pressure 117/54 - Exam Patient is awake, comfortable, in no acute distress Examination of the heart S1 and S2 Examination of the lungs bilateral breath sounds are heard Abdomen is soft nontender Examination of the lower extremities shows no evidence of edema 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 OPERATOR exam is grossly intact - Labs CBC & Chem 7: 12/22/21 03:18 12/22/21 03:18 Labs: Abnormal Lab Results - Last 24 Hours (Table) 12/21/21 12/21/21 12/21/21 Range/Units 11:12 16:19 19:56 RBC (3.80-5.40) m/uL Hgb (11.4-16.0) gm/dL Hct (34.0-46.0) % MCV (80.0-100.0) fL RDW (11.5-15.5) % Lymphocytes # (Manual) (1.0-4.8) k/uL Sodium (137-145) mmol/L BUN (7-17) mg/dL Creatinine (0.52-1.04) mg/dL Glucose (74-99) mg/dL POC Glucose (mg/dL) 148 H 202 H 167 H (70-110) mg/dL 12/22/21 12/22/21 12/22/21 Range/Units 03:18 03:18 06:39 RBC 2.14 L (3.80-5.40) m/uL Hgb 7.1 L (11.4-16.0) gm/dL Hct 22.2 L (34.0-46.0) % MCV 103.6 H (80.0-100.0) fL RDW 16.6 H (11.5-15.5) % Lymphocytes # (Manual) 0.24 L (1.0-4.8) k/uL Sodium 133 L (137-145) mmol/L BUN 43 H (7-17) mg/dL Creatinine 3.19 H (0.52-1.04) mg/dL Glucose 150 H (74-99) mg/dL POC Glucose (mg/dL) 211 H (70-110) mg/dL Assessment and Plan Assessment: 1. Acute kidney injury most likely ATN currently oliguric. Started hemodialysis on 12/11/2021 for worsening renal function and uremia with mental status changes. Ultrasound shows severe left hydronephrosis. No hydronephrosis on the right kidney. Urology on consult. No plans for intervention as this appears chronic. 2. Volume overload currently improved 3. Mental status changes possibly related to uremia with acute advanced kidney injury, improved 4. Chronic kidney disease with previous creatinine at 1.3, NKF stage IIIB, e tiology likely nephrosclerosis/obstructive uropathy 5. UTI with urine culture growing E. coli 6. Lactic acidosis associated with underlying infection, resolved 7. Metabolic acidosis associated with acute kidney injury status post bicarb drip. Expect further improvement with dialysis 8. Anemia of chronic disease, iron and repeat Plan: Maintain hemodialysis on Friday schedule
--- NOTE | 2021-12-22 12:01 | P.PN ---
Subjective Progress Note Date: 12/22/21 Principal diagnosis: Acute kidney injury, respiratory failure. Patient was reevaluated today on 12/14/21, patient remains in the ICU, intubated and mechanically ventilated. She is on assist control rate of 22, tidal volume is 450 FiO2 35% and PEEP of 5.Patient is on Precedex at 0.3 mcg/kg per hour. Patient is awake, arousable, follows simple instructions, and her labs were r eviewed she had a relatively normal CBC WBC is 4.1 hemoglobin is 7.9. Basic metabolic profile is normal however her BUN is 56 creatinine 3.65, patient is scheduled to undergo hemodialysis again today. Chest x-ray showed mostly stable left basilar opacity consistent with infiltrate. Right side seems to be much clearer today. Urine cultures were positive for E. coli on admission. Otherwise the rest of the cultures including blood and sputum were negative so far. Patient remains on bronchodilators, she is also on methylprednisolone 60 mg IV push every 6 hours, and she is on Zosyn. Considering the patient is awake, arousable, and considering she is appropriate mentally, I recommended a short trial of pressure support and CPAP with a pressure support of 10 while I was at bedside. Checking on the patient with pressure support and CPAP mode of mechanical ventilation, and half an hour later patient continued to tolerate that quite well, and her weaning parameters look reasonable, went ahead and recommended extubating the patient. Patient was extubated uneventfully, placed on nasal cannula. Patient is to have hemodialysis today. And she was seen yesterday by urology for left sided hydronephrosis, again this is being addressed by urology on the case Reevaluated today on 12/15/21, a shunt remains in the ICU, she was extubated yesterday uneventfully. She is on 2 L nasal cannula, and her O2 sats is 94% patient is yet to receive hemodialysis today. But overall the wound. No cough no wheezing no shortness of breath. CBC is relatively unremarkable WBC has 5.4 hemoglobin 8.3 left lites are normal BUN is 61 creatinine 3.34. Chest x-ray showed chronic emphysematous change, left basilar infiltrate or atelectasis is noted I suspect it is bibasilar infiltrates. Left more so than right Reevaluated today on 12/16/21, patient remains in the ICU as an overflow, she tolerated the extubation over the last few days quite well, remains on 3 L nasal cannula, O2 sats is 95%, patient is not any distress, she is still undergoing hemodialysis for acute kidney injury. Patient has no fever, she is relatively asymptomatic, blood pressure is 143/78. WBC count is 5.9 hemoglobin 8.7 and electrolytes are normal BUN is 52 creatinine 3.0 Progress note dated 12/17/2021. 71-year-old female seen in the intensive care unit, room 251. She was admitted to the hospital on December 10, with acute kidney injury. She developed respiratory failure, required intubation, on December 11, and was successfully extubated on December 14. Currently, she is on 3 L of oxygen. She's getting saline at KVO. She's had hemodialysis for the last 5 days. A permanent dialysis catheter will be placed today. The patient is a patient who can be transferred out to the medical/surgical floor, without telemetry. She's currently on Zosyn for Escherichia coli urinary tract infection. White count 4.9, hemoglobin 8.4, hematocrit 27.1, and platelet count 253,000. Sodium 139, potassium 4.7, chlorides 102, CO2 23, anion gap 14, BUN 78, and creatinine 5.29. No chest x-ray noted. Progress note dated 12/18/2021. 71-year-old female seen in the intensive care unit, room 251. She was admitted to the hospital December 10, with acute kidney injury. She developed respiratory failure, and required intubation on December 11, and was successfully extubated on 12/14/2021. Currently, she is on 3 L of oxygen. She's not receiving any IV fluids. She is to receive a permanent hemodialysis catheter today. She had hemodialysis yesterday. Not sure about hemodialysis today. White count 4.6, hemoglobin 8.3, hematocrit 26.7, and platelet count 261,000. Sodium 136, potassium 4.5, chlorides 103, CO2 22, anion gap 11, BUN 48, and creatinine 3.32. Urine, on December 10 was positive for Escherichia coli. No recent chest x-ray to report. Progress note dated 12/19/2021. 71-year-old female seen in room 251. She remains in the intensive care unit. Yesterday, December 18, she had a hemodialysis catheter placed. She's currently on 4 L of oxygen. She's not receiving any IV fluids. No new laboratory data today. Glucose 126. The patient appears reasonably stable. She denies any shortness of breath, wheezing, chest tightness, cough, or phlegm production. No chest pain or chest discomfort. No fever or chills. Progress note dated 12/20/2021. 71-year-old female seen again, in room 251. The patient is doing reasonably well. She is on 2 L of oxygen. No IV fluids. Yesterday, the patient developed shortness of breath, likely related to her underlying COPD. She was given Pulmicort, formoterol, DuoNeb nebs, and Solu-Medrol. She appears better today. Labs today include a white count 3.5, hemoglobin 7.5, hematocrit 23.2, and a normal platelet count. Sodium 136, potassium 4, chlorides 100, CO2 26, anion gap 10, BUN 45, and creatinine 3.28. Chest x-ray from yesterday shows changes of COPD, and some diffuse interstitial edema/CHF. Progress note dated 12/21/2021. 71-year-old female, again seen in room 251. She is currently undergoing dialysis. She has no IV fluids. She's currently on BiPAP with settings of 14/5 and 50%. She's only on BiPAP which she is undergoing hemodialysis. Normally, she is on 2 L. She had an uneventful night according to the nurse. No new labs today. Progress note dated 12/22/2021. The patient is again seen today in room 251. She is having dialysis today. He is on 2 L of oxygen. She's not receiving any IV fluids. After hemodialysis today, the plan is to discharge her home. Clinically, she's doing well. She has no complaints. Her breathing is stable. As mentioned, she is on 2 L. Important medications include albuterol sulfate and ipratropium bromide, and Symbicort. She is also getting prednisone 20 mg a day. Labs today include a white count of 4.8, hemoglobin 7.1, hematocrit 22.2, and platelet count 289,000. Sodium 133, potassium 4.9, chlorides 90, CO2 26, BUN 43, and creatinine 3.19. Objective - Vital Signs Vital signs: Vital Signs Temp 97.7 F 12/22/21 08:00 Pulse 96 12/22/21 08:00 Resp 22 12/22/21 08:00 BP 161/76 12/22/21 08:00 Pulse Ox 97 12/22/21 08:00 FiO2 59 12/21/21 11:28 Intake & Output 12/21/21 12/22/21 12/22/21 18:59 06:59 18:59 Intake Total 940 Output Total 3300 1 Balance -2360 -1 Weight 57.9 kg Intake: Oral 640 Hemodialysis 300 Output: Stool 1 Hemodialysis 3300 Other: # Voids 0 0 ABP, PAP, CO, CI - Last Documented Arterial Blood Pressure 117/54 - Exam No acute distress, oriented 3. Nasal O2 at 2 L. Undergoing hemodialysis. HEENT examination is grossly unremarkable. Neck supple. Full range of motion. No adenopathy thyromegaly or neck vein distention. Cardiovascular examination reveals regular rhythm rate. S1-S2 normal. No S3 or S4. No discernible murmur noted. Heart rate 89 bpm. Heart sounds are distant. Lungs reveal clear breath sounds. Breath sounds are equal bilaterally. No adventitious lung sounds including wheezes rhonchi or crackles. Saturations are 97 %. Abdomen soft bowel sounds are heard. No masses or tenderness. Extremities are intact. No cyanosis clubbing or edema. Skin is without rash or lesion. Neurologic examination is brief but nonfocal. - Labs CBC & Chem 7: 12/22/21 03:18 12/22/21 03:18 Labs: Abnormal Lab Results - Last 24 Hours (Table) 12/21/21 12/21/21 12/22/21 Range/Units 16:19 19:56 03:18 RBC 2.14 L (3.80-5.40) m/uL Hgb 7.1 L (11.4-16.0) gm/dL Hct 22.2 L (34.0-46.0) % MCV 103.6 H (80.0-100.0) fL RDW 16.6 H (11.5-15.5) % Lymphocytes # (Manual) 0.24 L (1.0-4.8) k/uL Sodium (137-145) mmol/L BUN (7-17) mg/dL Creatinine (0.52-1.04) mg/dL Glucose (74-99) mg/dL POC Glucose (mg/dL) 202 H 167 H (70-110) mg/dL 12/22/21 12/22/21 Range/Units 03:18 06:39 RBC (3.80-5.40) m/uL Hgb (11.4-16.0) gm/dL Hct (34.0-46.0) % MCV (80.0-100.0) fL RDW (11.5-15.5) % Lymphocytes # (Manual) (1.0-4.8) k/uL Sodium 133 L (137-145) mmol/L BUN 43 H (7-17) mg/dL Creatinine 3.19 H (0.52-1.04) mg/dL Glucose 150 H (74-99) mg/dL POC Glucose (mg/dL) 211 H (70-110) mg/dL Assessment and Plan Assessment: Acute respiratory failure secondary to seizure-like activity, requiring intubation and mechanical ventilation, with successful extubation on 12/14/2021. Patient was intubated on 12/11/2021. Acute on chronic hypoxemic respiratory failure secondary to COPD, and acute diastolic CHF. Possible aspiration pneumonia. Acute Escherichia coli urinary tract infection. Chronic tobacco use. History of left lower extremity DVT. Chronic back pain. History of gastroesophageal reflux disease. Acute kidney injury, requiring daily hemodialysis,S/P permanent hemodialysis catheter placement on December 18. Plan: Plan dated 12/17/2021. The patient is seen, interviewed, and examined, and room 251. She remains on 3 L of oxygen. She's getting daily hemodialysis. A dialysis catheter will be placed today. She continues on Zosyn for Escherichia coli urinary tract infection, and possible aspiration pneumonia. Labs, x-rays, medications are reviewed. Prognosis is certainly guarded. We will continue follow the patient and make recommendations along the way. The patient could be considered for transfer out of the intensive care unit. Plan dated 12/18/2021. The patient will apparently receive a permanent hemodialysis catheter today. She is on 3 L. No IV fluids. Labs, x-rays, and medications are reviewed. She remains on updrafts, she also remains on Zosyn. Corticosteroids can be discontinued. Additional recommendations and suggestions are forthcoming. The patient's budesonide and formoterol can be discontinued in favor of Symbicort. The patient continues on albuterol sulfate, and ipratropium bromide. Plan dated 12/19/2021. The patient had a permanent hemodialysis catheter placed on December 18. She's currently on 4 L of oxygen, with saturations of 96%. Clinically, she looks reasonably stable. She denies any shortness of breath. Medications are reviewed. Everything appears to be appropriate. Labs, x-rays, and medications are all reviewed. We will continue to follow the patient and make r ecommendations along the way. The patient can be transferred out to the general medical floor. Plan dated 12/20/2021. A permanent hemodialysis catheter was placed. Clinically, the patient looks we ll today. She was having some difficulty with her breathing yesterday, and she received additional medications for her underlying COPD. Currently, she is on 2 L. She's not receiving any IV fluids. Labs, x-rays, and medications are reviewed. The patient may be discharged possibly by tomorrow. We will continue to follow make recommendations along the way. Plan dated 12/21/2021. The patient is undergoing hemodialysis as we speak. While on hemodialysis, the patient prefers BiPAP. Normally, she is on 2 L. No new labs today. No new x- rays today. The patient is awaiting a bed out on the general medical floor. We will continue to follow and make recommendations along the way. Prognosis is guarded. No additional recommendations today. Plan dated 12/22/2021. The patient may very well be discharged home today. She is currently undergoing hemodialysis. She is on 2 L. Her respiratory status is stable. Labs, x-rays, and medications are all reviewed. Clinically, the patient is stable. She continues on updrafts, Symbicort, and prednisone 20 mg a day. We will continue to follow make recommendations along the way should she not be discharged. Time with Patient: Less than 30
[2021-12-22 15:02] VITALS: BP 146/66; PULSE 79; RESP 20; TEMP 98.1
[2021-12-22] MEDS ORDERED: SYMBICORT 160-4.5 MCG INHALER INHALATION SCH (20:00)
[2021-12-23] MEDS ORDERED: predniSONE 20 MG TAB PO SCH (09:00)
--- NOTE | 2021-12-23 14:25 | P.DS ---
Providers Date of admission: 12/10/21 12:05 Attending physician: Toro Hernandez MD Consults: 12/10/21 17:22 Consult Physician Routine Consulting Provider: Glenys Trejo Consult Reason/Comments: chf Do you want consulting provider notified?: Yes Consult Physician Routine Consulting Provider: Kati Jara Consult Reason/Comments: copd Do you want consulting provider notified?: Yes 12/10/21 17:23 Consult Physician Routine Consulting Provider: Charity Goode Consult Reason/Comments: arf Do you want consulting provider notified?: Yes 12/11/21 12:54 Consult Physician Routine Consulting Provider: London Jesus Consult Reason/Comments: need for dialysis catheter Do you want consulting provider notified?: Yes 12/11/21 18:03 Consult Physician Urgent Consulting Provider: Johana Dudley Consult Reason/Comments: seizure Do you want consulting provider notified?: Yes 12/12/21 10:39 Consult Physician Routine Consulting Provider: Laith Mahan Consult Reason/Comments: severe hydronephrosis on the left Do you want consulting provider notified?: Yes Primary care physician: Carolyn Rosenberg Hospital Course: Final Diagnosis Change in mental status, acute metabolic encephalopathy, improved Acute on chronic hypoxic respiratory failure requiring mechanical ventilation on 12/11/2021, extubated on 12/14/2021 Congestive heart failure and chronic obstructive pulmonary disease, acute exacerbation Acute renal failure requiring emergent dialysis catheter placement and hemodialysis History of Degenerative joint disease History of DVT Gastroesophageal reflux disease Osteoarthritis Chronic bullous emphysema history Former smoker of 40+ years GI prophylaxis DVT prophylaxis Full code Discharge Disposition Patient is stable for discharge with a guarded prognosis. She'll be discharged home where she resides with her . Home care services are in place. Patient will be maintained on hemodialysis scheduled Friday and they're unable to dialyze the patient on Friday for this reason patient was dialyzed on Friday, December 21 and FridayDecember 22. Patient is a chair time at [facility] in [place] for Friday at 4:20 PM. Her first appointment is December 26 and she is to arrive at 4 PM. Patient is recommended to follow-up with her primary care provider Dr. Taylor Rosenberg 1-2 days. Patient will also follow up with Dr. Sharma in the week and also Dr. Smalls in 1 week. Patient is discharged on oral steroid taper. She would like to discuss maintenance steroid dosing in the office. Total time taken in discharge planning greater than 35 minutes. Hospital course This is a pleasant 71-year-old female who follows with Dr. Taylor Rosenberg the primary care office. Medical history includes degenerative joint disease, DVT, gastroesophageal reflux disease, osteoarthritis, bullous emphysema, former smoker with a 40+ year pack history, chronic obstructive pulmonary disease, chronic hypoxic respiratory failure. She is maintained on eliquis. Patient presents to the hospital with change in mental status and increasing hypoxia as well as shortness of breath. Patient worsening hypoxia and abnormal ABGs and was brought to the intensive care unit and was placed on mechanical ventilator. She was started on empiric antibiotic coverage with IV Zosyn. Due to acute renal failure patient received a temporary dialysis catheter and begin renal replacement therapy with nephrology following closely. Patient was intubated on 12/11/2021 secondary to acute hypoxic respiratory failure and was maintained on a mechanical ventilator. She continued to monitored in intensive care unit on emergent dialysis with recommendations for outpatient dialysis on discharge. Patient had a chest x-ray showing chronic emphysema changes and also had a possible acute infiltrate. Patient did have an EEG completed with no seizure activity noted, altered mental status changes most from metabolic encephalopathy secondary to acute renal failure and respiratory failure. Patient was extubated on 12/14/2021. Patient underwent permacath placement with Dr. Jesus December 18. She did have E. coli UTI and was appropriately treated with IV antibiotics. Patient improved and patient is now alert and oriented 3. No acute events overnight and reports shortness of breath has improved. She'll be discharged home with home care services today. 12/22/2021 Patient's evaluation intensive care unit. She did have a drop in hemoglobin to 7.1 and 1 unit of packed her blood cells was ordered to be given with dialysis which she did receive. She is given script for repeat CBC and also repeat BMP in 2-3 days. Most recent labs showing a hemoglobin of 7.1, sodium 133, potassium 4.9, BUN 43, creatinine 3.19, blood glucose in the 150s. Patient was resumed on all home medications and also started on diabetic to be now for injection subcutaneous 60 g every 7 days, amlodipine 5 mg daily, calcium acetate with meals 3 times a day, hydralazine 50 mg 3 times a day and also on an oral prednisone taper. She did discuss possibly starting a maintenance prednisone taper since she feels that when she stops the steroid taper her respiratory status declines. Patient be continued on bronchodilators and also she is maintained on mometasone/formoterol BID outpatient. Today her lungs are clear, S1-S2 auscultated, focal neurological exam is negative. She has no peripheral edema. Permacath intact. Plan is to undergo hemodialysis today and to be discharged home with home care services. Patient is afebrile, heart rate 79 normal sinus rhythm, blood pressure 146/66, 97% on room air. Please see medication reconciliation for list of current medication. Thank you for allowing us to participate in the care of this patient. The impression and plan of care has been dictated by Carmen Blount, Nurse Practitioner as directed. Dr. Roni MD I have performed a history and physical examination and medical decision making of this patient, discussed the same with the dictator, and agree with the dictators assessment and plan as written, documented as a scribe. Based on total visit time, I have performed more than 50% of this visit. Patient Condition at Discharge: Fair Plan - Discharge Summary New Discharge Prescriptions: New Darbepoetin Michele [Aranesp] 60 mcg SQ Q7D each amLODIPine [Norvasc] 5 mg PO DAILY #30 tab Calcium Acetate [PhosLo] 1,334 mg PO TID-W/MEALS 30 Days #180 tab hydrALAZINE HCL [Apresoline] 50 mg PO TID 30 Days #90 tab predniSONE 10 mg PO DIRECTED 6 Days #9 tab Continue Mometasone/Formoterol [Dulera 200 Mcg-5 Mcg Inhaler] 2 puff INHALATION RT-BID Tiotropium 18 Mcg/Puff [Spiriva] 1 cap INHALATION RT-DAILY Denosumab [Prolia] 60 mg SQ Q180D Acetaminophen Tab [Tylenol] 650 mg PO Q6HR PRN tab PRN Reason: Mild Pain Or Fever > 100.5 Apixaban [Eliquis] 5 mg PO BID Ipratropium-Albuterol Nebulize [Duoneb 0.5 mg-3 mg/3 ml Soln] 3 ml INHALATION RT-QID 30 Days #120 each Ipratropium-Albuterol Nebulize [Duoneb 0.5 mg-3 mg/3 ml Soln] 3 ml INHALATION RT-Q4H PRN ml PRN Reason: Shortness Of Breath Or Wheezing Albuterol Sulfate [Albuterol Sulfate Hfa] 2 puff INHALATION RT-Q6H PRN PRN Reason: Shortness Of Breath Pantoprazole [Protonix] 40 mg PO AC-BRKFST 30 Days #30 tab Discharge Medication List Mometasone/Formoterol [Dulera 200 Mcg-5 Mcg Inhaler] 2 puff INHALATION RT-BID 05/13/14 [History] Denosumab [Prolia] 60 mg SQ Q180D 04/10/20 [History] Tiotropium 18 Mcg/Puff [Spiriva] 1 cap INHALATION RT-DAILY 04/10/20 [History] Ipratropium-Albuterol Nebulize [Duoneb 0.5 mg-3 mg/3 ml Soln] 3 ml INHALATION RT-Q4H PRN ml 07/10/21 [Rx] Albuterol Sulfate [Albuterol Sulfate Hfa] 2 puff INHALATION RT-Q6H PRN 08/08/21 [History] Acetaminophen Tab [Tylenol] 650 mg PO Q6HR PRN tab 08/09/21 [Rx] Apixaban [Eliquis] 5 mg PO BID 09/13/21 [History] Pantoprazole [Protonix] 40 mg PO AC-BRKFST 30 Days #30 tab 09/18/21 [Rx] Calcium Acetate [PhosLo] 1,334 mg PO TID-W/MEALS 30 Days #180 tab 12/21/21 [Rx] Darbepoetin Michele [Aranesp] 60 mcg SQ Q7D each 12/21/21 [Rx] Ipratropium-Albuterol Nebulize [Duoneb 0.5 mg-3 mg/3 ml Soln] 3 ml INHALATION RT-QID 30 Days #120 each 12/21/21 [Rx] amLODIPine [Norvasc] 5 mg PO DAILY #30 tab 12/21/21 [Rx] hydrALAZINE HCL [Apresoline] 50 mg PO TID 30 Days #90 tab 12/21/21 [Rx] predniSONE 10 mg PO DIRECTED 6 Days #9 tab 12/22/21 [Rx] Follow up Appointment(s)/Referral(s): Carolyn Rosenberg DO [Primary Care Provider] - 1-2 days Darshan Duron DO [Doctor of Osteopathic Medicine] - 1 Week Chaim Smalls DO [STAFF PHYSICIAN] - 1 Week Ambulatory/Diagnostic Orders: Basic Metabolic Panel [LAB.AMB] Time Frame: 3 Days, Location: None Selected Complete Blood Count w/diff [LAB.AMB] Time Frame: 2 Days, Location: None Selected Activity/Diet/Wound Care/Special Instructions: Patient to follow up for dialysis post discharge at [facility] in [place]; [facility] [place] [address] Chair time is Friday, Friday and Friday at 4:20PM. First appointment is December 26, please arrive early 4:00PM. Activity Limited until follow-up Recommend continue with heart healthy, consistent carb, renal diet Continue with DuoNeb treatments and inhalers and complete the prednisone taper Recommend follow-up with primary care provider on discharge Follow-up with nephrology in one week Follow-up with pulmonary outpatient in 1-2 weeks Discharge Disposition: HOME WITH HOME HEALTH SERVICES
[2021-12-24 08:58] LABS: Glucose,Whole Blood 183 mg/dL (70-110)
--- NOTE | 2021-12-31 06:48 | CDI ---
Documentation Clarification Form Date: 12/25/21 From: Judy Pozo Admit Date: 12/10/2021 12:05:00 PM Patient Name: Demly Anderson Visit Number: [id number] Discharge Date: 12/22/2021 02:55:00 PM ATTENTION: The Clinical Documentation Specialists (CDI) and [facility] Coding Staff appreciate your assistance in clarifying documentation. Please respond to the clarification below the line at the bottom and electronically sign. The CDI & [facility] Coding staff will review the response and follow-up if needed. Please note: Queries are made part of the Legal Health Record. If you have any questions, please contact the author of this message via ITS. Dr. Estrella Tamayo, The patient is documented to have septic shock on 12/[address] Smalls. The patient was admitted on 12/10. For each diagnosis, documentation must be clear to determine if the condition was present at the time of the patients inpatient admission or developed during the hospital stay. Additional clarification regarding the sepsis and septic shock is requested. History/Risk Factors: UTI, ATN, aspiration pneumonia, toxic metabolic encephalopathy, HTN w Stage 3a CKD and acute diastolic CHF, thrombus of left femoral vein extending into popliteal vein, T2DM w CKD, seizure disorder, acute respiratory failure, COPD w chronic hypoxic respiratory failure Clinical Indicators: Patient admitted with confusion, Cr is 3.86, indicating acute renal failure. 12/10/21 12/11/21 Lactic acid: 1.1 Lactic acid: 2.9 WBC: 7.5 WBC: 10.1 Neutrophils: 6.30 Neutrophils: 8.00 Cr: 3.86 Cr: 6.00 ABG pH: none ABG pH: 7.27 Glucose: 150 Glucose: 136 Procalcitonin: 6.11 Temp: 99.6 Temp: 98.6 Pulse: 112 Pulse: 100 Resp: 22 Resp: 23 BP: 181/92 BP: 159/79, 151/92 O2: 3L NC Mechanical ventilation Treatment: On 12/10: O2, IV fluids, IV Lasix, inhalation and nebulizer treatments On 12/11 IV Zosyn started Consult Nephrology, Cardiology, Neurology, Definition of Present on Admission (POA): A diagnosis present at the time the order for admission to inpatient status was written. Please clarify if the Sepsis was POA [ ] Y = Yes, the condition was present at the time of the order for inpatient admission. [ ] N = No, the condition was not present at the time of the order for inpatient admission. [ ] W = Clinically undetermined if the condition was present at the time of the order for inpatient admission. Please clarify if the Septic shock was POA [ ] Y = Yes, the condition was present at the time of the order for inpatient admission. [ ] N = No, the condition was not present at the time of the order for inpatient admission. [ ] W = Clinically undetermined if the condition was present at the time of the order for inpatient admission. No septic shock MTDD
--- NOTE | 2021-12-31 07:05 | CDI ---
Documentation Clarification Form Date: 12/31/21 From: Judy Pozo Admit Date: 12/10/2021 12:05:00 PM Patient Name: Delmy Anderson Visit Number: [id number] Discharge Date: 12/22/2021 02:55:00 PM ATTENTION: The Clinical Documentation Specialists (CDI) and [facility] Coding Staff appreciate your assistance in clarifying documentation. Please respond to the clarification below the line at the bottom and electronically sign. The CDI & [facility] Coding staff will review the response and follow-up if needed. Please note: Queries are made part of the Legal Health Record. If you have any questions, please contact the author of this message via ITS. Dr. Estrella Tamayo, Acute on chronic hypoxic respiratory failure is documented in the Dr Jara's 12/11 consult. For each diagnosis, documentation must be clear to determine if the condition was present at the time of the patients inpatient admission or developed during the hospital stay. Additional clarification regarding the [insert diagnosis] is requested. History/Risk Factors: History/Risk Factors: UTI, ATN, aspiration pneumonia, toxic metabolic encephalopathy, HTN w Stage 3a CKD and acute diastolic CHF, thrombus of left femoral vein extending into popliteal vein, T2DM w CKD, seizure disorder, bullous emphysema w chronic hypoxic respiratory failure Clinical Indicators: Patient with chronic hypoxic respiratory failure, home oxygen lately at 4L?NC. Assessment on 12/11 consult: acute on chronic hypoxic respiratory failure secondary to mild fluid volume overload, possible diastolic CHF. Chronic hypoxic respiratory failure related to advanced COPD, maintained on Dulera, Spriva, Albuterol and home oxygen at 2 L. 12/11 - ABG pH: 7.27, pO2: 79, HCO3: 18 Treatment: 12/10 O2 3-2L NC; 12/11 Intubation and mechanical ventilation Definition of Present on Admission (POA): A diagnosis present at the time the order for admission to inpatient status was written. Please clarify if the Acute on chronic hypoxic respiratory failure was POA [ ] Y = Yes, the condition was present at the time of the order for inpatient admission. [ ] N = No, the condition was not present at the time of the order for inpatient admission. [ ] W = Clinically undetermined if the condition was present at the time of the order for inpatient admission. If dictated on H&P then present on admission MTDD
--- NOTE | 2022-01-09 09:36 | CDI ---
Documentation Clarification Form Date: 12/31/2021 06:45:00 AM From: Judy Pozo Admit Date: 12/10/2021 12:05:00 PM Patient Name: Delmy Anderson Visit Number: [id number] Discharge Date: 12/22/2021 02:55:00 PM ATTENTION: The Clinical Documentation Specialists (CDI) and [facility] Coding Staff appreciate your assistance in clarifying documentation. Please respond to the clarification below the line at the bottom and electronically sign. The CDI & [facility] Coding staff will review the response and follow-up if needed. Please note: Queries are made part of the Legal Health Record. If you have any questions, please contact the author of this message via ITS. Dr. Estrella Tamayo, The patient is documented to have septic shock on 12/[address] Smalls. The patient was admitted on 12/10. For each diagnosis, documentation must be clear to determine if the condition was present at the time of the patients inpatient admission or developed during the hospital stay. Additional clarification regarding the sepsis and septic shock is requested. History/Risk Factors: UTI, ATN, aspiration pneumonia, toxic metabolic encephalopathy, HTN w Stage 3a CKD and acute diastolic CHF, thrombus of left femoral vein extending into popliteal vein, T2DM w CKD, seizure disorder, acute respiratory failure, COPD w chronic hypoxic respiratory failure Clinical Indicators: Patient admitted with confusion, Cr is 3.86, indicating acute renal failure. 12/10/21 12/11/21 Lactic acid: 1.1 Lactic acid: 2.9 WBC: 7.5 WBC: 10.1 Neutrophils: 6.30 Neutrophils: 8.00 Cr: 3.86 Cr: 6.00 ABG pH: none ABG pH: 7.27 Glucose: 150 Glucose: 136 Procalcitonin: 6.11 Temp: 99.6 Temp: 98.6 Pulse: 112 Pulse: 100 Resp: 22 Resp: 23 BP: 181/92 BP: 159/79, 151/92 O2: 3L NC Mechanical ventilation Treatment: On 12/10: O2, IV fluids, IV Lasix, inhalation and nebulizer treatments On 12/11 IV Zosyn started Consult Nephrology, Cardiology, Neurology, Definition of Present on Admission (POA): A diagnosis present at the time the order for admission to inpatient status was written. Please clarify if the Sepsis was POA [ ] Y = Yes, the condition was present at the time of the order for inpatient admission. [ ] N = No, the condition was not present at the time of the order for inpatient admission. [ ] W = Clinically undetermined if the condition was present at the time of the order for inpatient admission. No sepsis MTDD
== END 2021-12-22 14:55 | disposition home health service (06) | DRG 673 ==
LOC: EC 09:19 → 3SCARD 12:05 → 2SICU 12-11 18:11
PROVIDERS: ADMIT Internal Medicine; ATTEND Internal Medicine
PROC: 06HY33Z Insertion of Infusion Device into Lower Vein, Percutaneous Approach (ICD-10-PCS; 2021-12-11)
PROC: 4A133J1 Monitoring of Arterial Pulse, Peripheral, Percutaneous Approach (ICD-10-PCS; 2021-12-11)
PROC: 0D9670Z Drainage of Stomach with Drainage Device, Via Natural or Artificial Opening (ICD-10-PCS; 2021-12-11)
PROC: 03HY32Z Insertion of Monitoring Device into Upper Artery, Percutaneous Approach (ICD-10-PCS; 2021-12-11)
PROC: 4A133B1 Monitoring of Arterial Pressure, Peripheral, Percutaneous Approach (ICD-10-PCS; 2021-12-11)
PROC: 5A1D70Z Performance of Urinary Filtration, Intermittent, Less than 6 Hours Per Day (ICD-10-PCS; 2021-12-11)
PROC: 0BH17EZ Insertion of Endotracheal Airway into Trachea, Via Natural or Artificial Opening (ICD-10-PCS; 2021-12-11)
PROC: 5A1945Z Respiratory Ventilation, 24-96 Consecutive Hours (ICD-10-PCS; 2021-12-11 12:20)
PROC: 5A12012 Performance of Cardiac Output, Single, Manual (ICD-10-PCS; 2021-12-11 12:20)
PROC: 3E0G76Z Introduction of Nutritional Substance into Upper GI, Via Natural or Artificial Opening (ICD-10-PCS; 2021-12-12)
PROC: 05PYX3Z Removal of Infusion Device from Upper Vein, External Approach (ICD-10-PCS; principal; 2021-12-18 15:58)
PROC: 0JH63XZ Insertion of Tunneled Vascular Access Device into Chest Subcutaneous Tissue and Fascia, Percutaneous Approach (ICD-10-PCS; principal; 2021-12-18 15:58)
PROC: 06H033Z Insertion of Infusion Device into Inferior Vena Cava, Percutaneous Approach (ICD-10-PCS; principal; 2021-12-18 15:58)
PROC: 5A09457 Assistance with Respiratory Ventilation, 24-96 Consecutive Hours, Continuous Positive Airway Pressure (ICD-10-PCS; 2021-12-19)
DX: N17.0 Acute kidney failure with tubular necrosis (principal); G92.8 Other toxic encephalopathy; J96.21 Acute and chronic respiratory failure with hypoxia; J69.0 Pneumonitis due to inhalation of food and vomit; I50.31 Acute diastolic (congestive) heart failure; I82.412 Acute embolism and thrombosis of left femoral vein; I82.432 Acute embolism and thrombosis of left popliteal vein; E87.20 Acidosis, unspecified; I13.0 Hypertensive heart and chronic kidney disease with heart failure and stage 1 through stage 4 chronic kidney disease, or unspecified chronic kidney disease; I5A Non-ischemic myocardial injury (non-traumatic); J98.11 Atelectasis; D63.1 Anemia in chronic kidney disease; E83.39 Other disorders of phosphorus metabolism; I27.20 Pulmonary hypertension, unspecified; J43.9 Emphysema, unspecified; E11.22 Type 2 diabetes mellitus with diabetic chronic kidney disease; N18.31 Chronic kidney disease, stage 3a; G40.909 Epilepsy, unspecified, not intractable, without status epilepticus; Z99.2 Dependence on renal dialysis; Z20.822 Contact with and (suspected) exposure to COVID-19; K21.9 Gastro-esophageal reflux disease without esophagitis; N13.6 Pyonephrosis; N13.9 Obstructive and reflux uropathy, unspecified; H91.90 Unspecified hearing loss, unspecified ear; M81.0 Age-related osteoporosis without current pathological fracture; M54.9 Dorsalgia, unspecified; G89.29 Other chronic pain; R13.10 Dysphagia, unspecified; H93.19 Tinnitus, unspecified ear; K63.5 Polyp of colon; M19.90 Unspecified osteoarthritis, unspecified site; Z99.81 Dependence on supplemental oxygen; Z79.01 Long term (current) use of anticoagulants; Z79.51 Long term (current) use of inhaled steroids; Z79.899 Other long term (current) drug therapy; Z87.891 Personal history of nicotine dependence; Z87.440 Personal history of urinary (tract) infections; Z88.1 Allergy status to other antibiotic agents; Z88.2 Allergy status to sulfonamides
CPT/HCPCS: 36415; 36556; 36558; 36600; 70450; 71045; 71046; 74150; 76770; 76937; 77001; 80048; 80053; 80074; 82728; 82805; 83036; 83540; 83550; 83605; 83735; 83880; 83883; 84100; 84145; 84484; 85025; 85027; 85610; 85730; 86038; 86160; 86162; 86225; 86255; 86334; 86850; 86900; 86901; 86920; 87040; 87070; 87077; 87086; 87186; 87205; 87502; 87635; 90935; 93005; 93308; 93970; 94002; 94003; 94640; 94660; 94760; 95822; 96360; 96361; 99285

== ENCOUNTER 2021-12-26 18:22 | Inpatient (IN) | payer MEDICARE ==
--- NOTE | 2021-12-26 19:20 | ED ---
SOB HPI - General Chief Complaint: Shortness of Breath Stated Complaint: sob Time Seen by Provider: 12/26/21 18:54 Source: patient Mode of arrival: wheelchair Limitations: no limitations - History of Present Illness Initial Comments: This patient is a 71-year-old woman who presents with complaint that she is having hard time breathing. The patient states this is been getting worse for weeks. She was not able to complete her dialysis treatment today because she was very short of breath and the machine kept terminating session. She has not noted any coming symptoms. No fever or chills. No chest pain. Occasional cough, no sputum. The patient has end-stage renal disease and does not produce any urine. No leg pain. She does have some right foot swelling but not much above the ankle. MD Complaint: shortness of breath -: days(s) Consistency: constant Improves With: nothing Worsens With: lying flat Known History Of: COPD, congestive heart failure, other Associated Symptoms: denies other symptoms Treatments Prior to Arrival: none - Related Data Home Oxygen Therapy: Yes Home Oxygen Amount: 4 Liters Home Medications Medication Instructions Recorded Confirmed Mometasone/Formoterol [Dulera 200 2 puff INHALATION RT-BID 05/13/14 12/26/21 Mcg-5 Mcg Inhaler] Denosumab [Prolia] 60 mg SQ Q180D 04/10/20 12/26/21 Tiotropium 18 Mcg/Puff [Spiriva] 1 cap INHALATION RT-DAILY 04/10/20 12/26/21 Albuterol Sulfate [Albuterol 2 puff INHALATION RT-Q6H PRN 08/08/21 12/26/21 Sulfate Hfa] Apixaban [Eliquis] 5 mg PO BID 09/13/21 12/26/21 predniSONE See Taper PO DIRECTED 12/26/21 12/26/21 Previous Rx's Medication Instructions Recorded Ipratropium-Albuterol Nebulize 3 ml INHALATION RT-Q4H PRN ml 07/10/21 [Duoneb 0.5 mg-3 mg/3 ml Soln] Acetaminophen Tab [Tylenol] 650 mg PO Q6HR PRN tab 08/09/21 Pantoprazole [Protonix] 40 mg PO AC-BRKFST 30 Days #30 tab 09/18/21 Calcium Acetate [PhosLo] 1,334 mg PO TID-W/MEALS 30 Days 12/21/21 #180 tab Darbepoetin Michele [Aranesp] 60 mcg SQ Q7D each 12/21/21 Ipratropium-Albuterol Nebulize 3 ml INHALATION RT-QID 30 Days 12/21/21 [Duoneb 0.5 mg-3 mg/3 ml Soln] #120 each amLODIPine [Norvasc] 5 mg PO DAILY #30 tab 12/21/21 hydrALAZINE HCL [Apresoline] 50 mg PO TID 30 Days #90 tab 12/21/21 Allergies Allergy/AdvReac Type Severity Reaction Status Date / Time sulfamethoxazole Allergy Unknown Verified 12/26/21 22:24 [From Bactrim] trimethoprim [From Bactrim] Allergy Unknown Verified 12/26/21 22:24 Review of Systems ROS Statement: Those systems with pertinent positive or pertinent negative responses have been documented in the HPI. ROS Other: All systems not noted in ROS Statement are negative. Constitutional: Reports: weakness. Denies: fever Respiratory: Reports: cough, dyspnea. Denies: hemoptysis Cardiovascular: Reports: orthopnea. Denies: chest pain, palpitations, edema, syncope Gastrointestinal: Denies: abdominal pain, vomiting, diarrhea, melena, hematochezia Genitourinary: Reports: other (Anuric) Musculoskeletal: Denies: back pain Skin: Denies: rash Neurological: Denies: headache, weakness Past Medical History Past Medical History: COPD, GERD/Reflux, Hearing Disorder / Deafness, Osteoarth ritis (OA), Renal Disease Additional Past Medical History / Comment(s): Pt recently admitted to [facility] on 08/08/21 with left lower extremity DVT. 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 History of Any Multi-Drug Resistant Organisms: None Reported Past Surgical History: Hernia Repair, Hysterectomy, Tonsillectomy, Tubal Ligation Additional Past Surgical History / Comment(s): R inguinal hernia repair, colonoscopies Past Anesthesia/Blood Transfusion Reactions: No Reported Reaction, Postoperative Nausea & Vomiting (PONV) Past Psychological History: No Psychological Hx Reported Smoking Status: Former smoker Past Alcohol Use History: None Reported Past Drug Use History: None Reported - Past Family History Father Family Medical History: Cancer Additional Family Medical History / Comment(s): Lung cancer. General Exam Limitations: no limitations General appearance: alert, in distress Head exam: Present: atraumatic ENT exam: Present: normal oropharynx Neck exam: Present: normal inspection Respiratory exam: Present: respiratory distress, rales, accessory muscle use. Absent: rhonchi, stridor, decreased breath sounds, prolonged expiratory Cardiovascular Exam: Present: regular rate, irregular rhythm, gallop. Absent: systolic murmur, diastolic murmur, rubs GI/Abdominal exam: Present: soft. Absent: distended, tenderness, guarding, r ebound, rigid, mass Extremities exam: Present: normal inspection, normal capillary refill. Absent: pedal edema, calf tenderness Back exam: Present: normal inspection. Absent: CVA tenderness (R), CVA tenderness (L) Neurological exam: Present: alert Psychiatric exam: Present: anxious Skin exam: Present: warm, dry, intact, normal color. Absent: rash Course Vital Signs 12/26/21 12/26/21 12/26/21 18:31 19:26 19:27 Temperature 98.5 F 97.7 F Pulse Rate 90 89 Respiratory 26 H 22 22 Rate Blood Pressure 132/88 185/93 O2 Sat by Pulse 93 L 98 Oximetry Fraction of Inspired Oxygen (FIO2) 12/26/21 12/26/21 12/26/21 21:03 21:09 22:00 Temperature Pulse Rate 84 92 Respiratory 22 22 Rate Blood Pressure 178/89 165/85 O2 Sat by Pulse 99 100 Oximetry Fraction of 40 Inspired Oxygen (FIO2) 12/26/21 12/26/21 22:30 22:53 Temperature 98 F Pulse Rate 87 78 Respiratory 20 Rate Blood Pressure 165/85 165/88 O2 Sat by Pulse 100 Oximetry Fraction of Inspired Oxygen (FIO2) Medical Decision Making - Lab Data Result diagrams: 12/30/21 10:41 12/30/21 09:30 Lab Results 12/26/21 12/26/21 12/26/21 Range/Units 19:55 19:55 19:55 WBC 5.4 (3.8-10.6) k/uL RBC 2.65 L (3.80-5.40) m/uL Hgb 8.8 L D (11.4-16.0) gm/dL Hct 26.7 L (34.0-46.0) % MCV 100.8 H (80.0-100.0) fL MCH 33.3 (25.0-35.0) pg MCHC 33.0 (31.0-37.0) g/dL RDW 16.2 H (11.5-15.5) % Plt Count 147 L (150-450) k/uL MPV 7.7 Neutrophils % 88 % Lymphocytes % 5 % Monocytes % 2 % Eosinophils % 1 % Basophils % 0 % Neutrophils # 4.8 (1.3-7.7) k/uL Lymphocytes # 0.3 L (1.0-4.8) k/uL Monocytes # 0.1 (0-1.0) k/uL Eosinophils # 0.0 (0-0.7) k/uL Basophils # 0.0 (0-0.2) k/uL Hypochromasia Slight Anisocytosis Slight Macrocytosis Slight PT 10.1 (9.0-12.0) sec INR 0.9 (<1.2) APTT 25.8 (22.0-30.0) sec Sodium 132 L (137-145) mmol/L Potassium 4.4 (3.5-5.1) mmol/L Chloride 95 L (98-107) mmol/L Carbon Dioxide 28 (22-30) mmol/L Anion Gap 9 mmol/L BUN 42 H (7-17) mg/dL Creatinine 3.78 H (0.52-1.04) mg/dL Est GFR (CKD-EPI)AfAm 13 (>60 ml/min/1.73 sqM) Est GFR (CKD-EPI)NonAf 11 (>60 ml/min/1.73 sqM) Glucose 115 H (74-99) mg/dL Plasma Lactic Acid Javier (0.7-2.0) mmol/L Calcium 8.8 (8.4-10.2) mg/dL Total Bilirubin 0.3 (0.2-1.3) mg/dL AST 27 (14-36) U/L ALT 24 (4-34) U/L Alkaline Phosphatase 68 (38-126) U/L Troponin I (0.000-0.034) ng/mL NT-Pro-B Natriuret Pep pg/mL Total Protein 5.8 L (6.3-8.2) g/dL Albumin 3.1 L (3.5-5.0) g/dL 12/26/21 12/26/21 12/26/21 Range/Units 19:55 19:55 19:55 WBC (3.8-10.6) k/uL RBC (3.80-5.40) m/uL Hgb (11.4-16.0) gm/dL Hct (34.0-46.0) % MCV (80.0-100.0) fL MCH (25.0-35.0) pg MCHC (31.0-37.0) g/dL RDW (11.5-15.5) % Plt Count (150-450) k/uL MPV Neutrophils % % Lymphocytes % % Monocytes % % Eosinophils % % Basophils % % Neutrophils # (1.3-7.7) k/uL Lymphocytes # (1.0-4.8) k/uL Monocytes # (0-1.0) k/uL Eosinophils # (0-0.7) k/uL Basophils # (0-0.2) k/uL Hypochromasia Anisocytosis Macrocytosis PT (9.0-12.0) sec INR (<1.2) APTT (22.0-30.0) sec Sodium (137-145) mmol/L Potassium (3.5-5.1) mmol/L Chloride (98-107) mmol/L Carbon Dioxide (22-30) mmol/L Anion Gap mmol/L BUN (7-17) mg/dL Creatinine (0.52-1.04) mg/dL Est GFR (CKD-EPI)AfAm (>60 ml/min/1.73 sqM) Est GFR (CKD-EPI)NonAf (>60 ml/min/1.73 sqM) Glucose (74-99) mg/dL Plasma Lactic Acid Javier 0.7 (0.7-2.0) mmol/L Calcium (8.4-10.2) mg/dL Total Bilirubin (0.2-1.3) mg/dL AST (14-36) U/L ALT (4-34) U/L Alkaline Phosphatase (38-126) U/L Troponin I 0.067 H* (0.000-0.034) ng/mL NT-Pro-B Natriuret Pep 99534 pg/mL Total Protein (6.3-8.2) g/dL Albumin (3.5-5.0) g/dL Disposition Clinical Impression: Volume overload, Elevated troponin, Anemia Disposition: ADMITTED IP TO THIS HOSP Condition: Poor Is patient prescribed a controlled substance at d/c from ED?: No
--- NOTE | 2021-12-26 19:56 | XR ---
EXAMINATION TYPE: XR chest 2V DATE OF EXAM: 12/26/2021 7:38 PM COMPARISON: Chest radiographs from 12/13/2021 TECHNIQUE: XR chest 2V Frontal and lateral views of the chest. CLINICAL INDICATION:Female, 71 years old with history of difficulty breathing; FINDINGS: Lungs/Pleura: Fibrotic changes are seen in the lung bases with increased interstitial lung markings. No unchanged from prior. There is flattening of the diaphragm with increased lucency in the lung apic es. No evidence of pneumothorax or large pleural effusions. No focal consolidation. Pulmonary vascularity: Mild pulmonary vascular congestion. Heart/mediastinum: Cardiomediastinal silhouette is enlarged and stable. Musculoskeletal: No acute osseous pathology. Lines: Right central venous catheter with tip at the superior vena cava. IMPRESSION: 1. Right central venous catheter tip in appropriate position. 2. Mild pulmonary vascular congestion with primarily correlate serum BNP. 3. Similar prominent fibrosis and COPD changes.
[2021-12-26 20:05] LABS: Anisocytosis Slight; Basophils % (A) 0 %; Eosinophils % (A) 1 %; HCT 26.7 % (34.0-46.0); Hypochromasia Slight; Lymphocytes # (A) 0.3 k/uL (1.0-4.8); Lymphocytes % (A) 5 %; MCH 33.3 pg (25.0-35.0); MCV 100.8 fL (80.0-100.0); Macrocytosis Slight; Mean Platelet Volume 7.7; Monocytes # (A) 0.1 k/uL (0-1.0); Monocytes % (A) 2 %; Neutrophils # (A) 4.8 k/uL (1.3-7.7); Neutrophils % (A) 88 %; Platelet Count 147 k/uL (150-450); RBC 2.65 m/uL (3.80-5.40); RDW 16.2 % (11.5-15.5); WBC 5.4 k/uL (3.8-10.6)
[2021-12-26 20:16] LABS: HGB 8.8 gm/dL (11.4-16.0)
[2021-12-26 20:20] LABS: INR 0.9 (<1.2); Partial Thromboplastin Time 25.8 sec (22.0-30.0); Prothrombin Time 10.1 sec (9.0-12.0)
[2021-12-26 20:33] LABS: Albumin 3.1 g/dL (3.5-5.0); Calcium 8.8 mg/dL (8.4-10.2); Potassium 4.4 mmol/L (3.5-5.1); Total Bilirubin 0.3 mg/dL (0.2-1.3); Total Protein 5.8 g/dL (6.3-8.2)
[2021-12-26] MEDS ORDERED: NITROGLYCERIN OINT 1 INCH/GM PACKET TOPICAL STA (20:45)
[2021-12-26] MEDS ORDERED: IPRATROPIUM-ALBUTEROL 3 ML NEB INHALATION PRN (21:17)
[2021-12-26] MEDS ORDERED: NALOXONE 0.4 MG/ML 1 ML VIAL IVP PRN (21:17)
[2021-12-26] MEDS: hydrALAZINE HCL 20 MG/ML 1 ML VIAL IVP PRN (23:46)
[2021-12-26] MEDS: hydrALAZINE HCL 50 MG TAB PO SCH (23:49)
[2021-12-27] MEDS: PANTOPRAZOLE 40 MG TABLET PO SCH (06:44)
[2021-12-27] MEDS: CALCIUM ACETATE 667 MG TAB PO SCH ×3 (06:44→18:14)
[2021-12-27] MEDS: IPRATROPIUM-ALBUTEROL 3 ML NEB INHALATION SCH ×4 (07:53→20:37)
[2021-12-27 10:53] LABS: Anisocytosis Slight; HCT 26.7 % (34.0-46.0); HGB 8.2 gm/dL (11.4-16.0); Hypochromasia Moderate; MCHC 30.9 g/dL (31.0-37.0); MCV 103.3 fL (80.0-100.0); Macrocytosis Moderate; Mean Platelet Volume 8.4; Platelet Count 137 k/uL (150-450); RBC 2.58 m/uL (3.80-5.40); RDW 16.5 % (11.5-15.5)
[2021-12-27 11:08] LABS: Calcium 8.4 mg/dL (8.4-10.2); Potassium 4.1 mmol/L (3.5-5.1)
--- NOTE | 2021-12-27 11:29 | P.NPCON ---
History of Present Illness - Reason for Consult chronic renal failure - History of Present Illness Patient is a 71-year-old female who was discharged from the hospital about 4-5 days ago after prolonged hospitalization for volume overload, sepsis and acute kidney injury. Patient was started on hemodialysis due to worsening renal function and component of uremia with mental status changes and volume overload. She remains oliguric and hemodialysis dependent. Patient was maintained on Friday schedule as outpatient. Patient was admitted to the hospital this time from the dialysis unit with complaints of significant shortness of breath and acute distress. There is evidence of volume overload and patient is currently being dialyzed. Patient has chronic severe left hydronephrosis and was evaluated by urology during her last admission and at this time there is no plan for intervention as these are chronic changes. Patient remains oliguric. No complaints of fever, nausea vomiting or abdominal pain. Review of Systems As per HPI Past Medical History Past Medical History: COPD, GERD/Reflux, Hearing Disorder / Deafness, Osteoarthritis (OA), Renal Disease Additional Past Medical History / Comment(s): admitted 12/20/21 for AMS, admitted 08/08/21 with left lower extremity DVT. Other hx: Chronic hypoxic respiratory failure, home oxygen lately at 3L [place] ATC, chronic bullous emphysema, L kidney removed, diverticular disease, benign colon polyps, past ileus, osteoporosis, chronic back pain, L hip nerve pain, occasional dysphagia, UTIs, tinnitis. History of Any Multi-Drug Resistant Organisms: None Reported Past Surgical History: Hernia Repair, Hysterectomy, Tonsillectomy, Tubal Ligation Additional Past Surgical History / Comment(s): R inguinal hernia repair, colonoscopies Past Anesthesia/Blood Transfusion Reactions: No Reported Reaction, Postoperative Nausea & Vomiting (PONV) Past Psychological History: No Psychological Hx Reported Additional Psychological History / Comment(s): Pt resides with her spouse. She has home oxygen, nebulizer, cane and walker. Pt does not drive, her man takes her to appointments and lives nearby. Smoking Status: Former smoker Past Alcohol Use History: None Reported Additional Past Alcohol Use History / Comment(s): Pt started smoking approximately 1971 and quit 11/2021. Past Drug Use History: None Reported - Past Family History Father Family Medical History: Cancer Additional Family Medical History / Comment(s): Lung cancer. Medications and Allergies Home Medications Medication Instructions Recorded Confirmed Type Mometasone/Formoterol [Dulera 200 2 puff INHALATION RT-BID 05/13/14 12/26/21 History Mcg-5 Mcg Inhaler] Denosumab [Prolia] 60 mg SQ Q180D 04/10/20 12/26/21 History Tiotropium 18 Mcg/Puff [Spiriva] 1 cap INHALATION RT-DAILY 04/10/20 12/26/21 History Ipratropium-Albuterol Nebulize 3 ml INHALATION RT-Q4H PRN ml 07/10/21 12/26/21 Rx [Duoneb 0.5 mg-3 mg/3 ml Soln] Albuterol Sulfate [Albuterol 2 puff INHALATION RT-Q6H PRN 08/08/21 12/26/21 History Sulfate Hfa] Acetaminophen Tab [Tylenol] 650 mg PO Q6HR PRN tab 08/09/21 12/26/21 Rx Apixaban [Eliquis] 5 mg PO BID 09/13/21 12/26/21 History Pantoprazole [Protonix] 40 mg PO AC-BRKFST 30 Days #30 tab 09/18/21 12/26/21 Rx Calcium Acetate [PhosLo] 1,334 mg PO TID-W/MEALS 30 Days 12/21/21 12/26/21 Rx #180 tab Darbepoetin Michele [Aranesp] 60 mcg SQ Q7D each 12/21/21 12/26/21 Rx Ipratropium-Albuterol Nebulize 3 ml INHALATION RT-QID 30 Days 12/21/21 12/26/21 Rx [Duoneb 0.5 mg-3 mg/3 ml Soln] #120 each amLODIPine [Norvasc] 5 mg PO DAILY #30 tab 12/21/21 12/26/21 Rx hydrALAZINE HCL [Apresoline] 50 mg PO TID 30 Days #90 tab 12/21/21 12/26/21 Rx predniSONE See Taper PO DIRECTED 12/26/21 12/26/21 History Allergies Allergy/AdvReac Type Severity Reaction Status Date / Time sulfamethoxazole Allergy Unknown Verified 12/26/21 22:24 [From Bactrim] trimethoprim [From Bactrim] Allergy Unknown Verified 12/26/21 22:24 Physical Exam Vitals: Vital Signs Temp Pulse Pulse Resp BP BP Pulse Ox 12/27/21 08:02 87 12/27/21 08:00 97.8 F 92 36 H 168/74 99 12/27/21 07:53 90 12/27/21 07:48 12/27/21 07:45 12/27/21 03:54 97.9 F 87 22 158/55 99 12/27/21 03:47 12/27/21 01:05 85 22 144/73 97 12/26/21 23:30 40 H 12/26/21 23:11 97.9 F 66 39 H 175/78 94 L 12/26/21 23:06 12/26/21 22:53 98 F 78 20 165/88 100 12/26/21 22:30 87 165/85 12/26/21 22:00 92 22 165/85 100 12/26/21 21:09 84 22 178/89 99 12/26/21 21:03 12/26/21 19:27 22 12/26/21 19:26 97.7 F 89 22 185/93 98 12/26/21 18:31 98.5 F 90 26 H 132/88 93 L FiO2 12/27/21 08:02 12/27/21 08:00 40 12/27/21 07:53 12/27/21 07:48 40 12/27/21 07:45 40 12/27/21 03:54 12/27/21 03:47 40 12/27/21 01:05 12/26/21 23:30 12/26/21 23:11 12/26/21 23:06 40 12/26/21 22:53 12/26/21 22:30 12/26/21 22:00 12/26/21 21:09 12/26/21 21:03 40 12/26/21 19:27 12/26/21 19:26 12/26/21 18:31 Intake and Output 12/26/21 12/27/21 12/27/21 22:59 06:59 14:59 Other: # Voids 1 Weight 60.328 kg Patient is currently on BiPAP. 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 Acute kidney injury, mostly ATN currently oliguric and dialysis dependent. Hemodialysis was started on 12/11/2021/renal function uremia and fluid overload. 2. Volume overload. Patient will be dialyzed today and then again in a.m. 3. Acute hypoxic respiratory failure secondary to CHF exacerbation. 4. Recent hospitalization with sepsis with urine culture growing E. coli. 5. Anemia, iron replete from last admission. No active bleeding noted 6. Chronic left hydronephrosis with thinning of renal tissue and no plans for intervention from urology standpoint as these are chronic changes. Plan: Hemodialysis today and then again in a.m. Continue current antihypertensive regimen Add Alana thank you for the consultation. We will continue to follow the patient with you during her hospitalization
--- NOTE | 2021-12-27 12:01 | CA ---
Transthoracic Echo Report Name: Delmy Anderson Age: 71 Gender: F : 1950 Exam Date: 12/27/2021 07:48 Exam Location: [facility] Ht (in): 64 Wt (lb): 133 Ordering Physician: Torito Trevizo MD Attending/Referring Phys: Justen Tao MD Stippler Meche Linn RDCS Procedure CPT: Indications: volume overload Cardiac Hx: Technical Quality: Contrast 1: Total Dose (mL): Contrast 2: Total Dose (mL): MEASUREMENTS (Male / Female) Normal Values 2D ECHO LV Diastolic Diameter PLAX 4.6 cm 4.2 - 5.9 / 3.9 - 5.3 cm LV Systolic Diameter PLAX 2.4 cm IVS Diastolic Thickness 0.7 cm 0.6 - 1.0 / 0.6 - 0.9 cm LVPW Diastolic Thickness 1.3 cm 0.6 - 1.0 / 0.6 - 0.9 cm LV Relative Wall Thickness 0.4 RV Internal Dim ED PLAX 2.4 cm LA Systolic Diameter LX 3.8 cm 3.0 - 4.0 / 2.7 - 3.8 cm M-MODE Aortic Root Diameter MM 3.1 cm LA Systolic Diameter MM 3.7 cm LA Ao Ratio MM 1.2 AV Cusp Separation MM 1.5 cm DOPPLER MV Area PHT 3.5 cm??? Mitral E Point Velocity 100.7 cm/s Mitral A Point Velocity 108.5 cm/s Mitral E to A Ratio 0.9 MV Deceleration Time 217.1 ms MV E' Velocity 9.0 cm/s Mitral E to MV E' Ratio 11.2 TR Peak Velocity 329.9 cm/s TR Peak Gradient 43.5 mmHg Right Ventricular Systolic Press 48.1 mmHg FINDINGS Left Ventricle Mildly increased posterior wall thickness. Left ventricular ejection fraction is estimated at 45-50%. Inferior basal hypokinesis. Right Ventricle Normal right ventricular size and function. Moderate pulmonary hypertension. Right Atrium Normal right atrial size. Left Atrium Normal left atrial size. Mitral Valve Structurally normal mitral valve. Mild mitral regurgitation. Aortic Valve Trileaflet aortic valve. Aortic valve sclerosis. Tricuspid Valve Structurally normal tricuspid valve. Pulmonic Valve Structurally normal pulmonic valve. Mild pulmonic regurgitation. Pericardium Normal pericardium. Aorta Normal size aortic root and proximal ascending aorta. CONCLUSIONS Mild LV systolic dysfunction Moderate pulmonary hypertension Mild mitral regurgitation Previewed by: Dr. Po Guan MD (Electronically Signed) Final Date: 27 December 2021 12:00
--- NOTE | 2021-12-27 12:52 | P.CNPUL ---
History of Present Illness Consult date: 12/27/21 Requesting physician: Toro Hernandez Reason for consult: dyspnea, COPD, hypoxemia, abnormal CXR/CT Chief complaint: Shortness of breath. History of present illness: Pulmonary consultation dated 12/27/2021. 71-year-old female who was seen in room 265. The patient was seen in the emergency room, on December 26. The patient was having shortness of breath for a number of days prior to admission. The patient was recently inpatient here, and she was discharged on December 22. She spent her entire stay in the intensive care unit. The patient was requiring hemodialysis on most days. At various points during her last stay, she was on BiPAP, her nasal oxygen. Currently, the patient is on BiPAP settings of 10/5 and 40%. The patient is currently receiving hemodialysis. The patient is quite short of breath, and sitting up in bed. She denies any chest pain or chest discomfort. White count 4, hemoglobin 8.2, hematocrit 26.7, and platelet count 237,000. Sodium 134, potassium 4.1, chloride 96, CO2 31, BUN 40, creatinine 4.31. Troponin was 0.067. N-terminal proBNP was 19,600. Chest x-ray was consistent with fluid overload/pulmonary vascular congestion. Review of Systems REVIEW OF SYSTEMS: CONSTITUTIONAL: [Negative.] NEUROLOGIC: [ Negative.] HEENT: [ Negative.] CARDIAC: Shortness of breath. PULMONARY: Shortness of breath. GI: [Negative.] : [Negative.] RHEUMATOLOGIC: [ Negative.] IMMUNOLOGIC: [ Negative.] ENDOCRINE: [Negative. ] DERMATOLOGIC: [Negative.] Past Medical History Past Medical History: COPD, GERD/Reflux, Hearing Disorder / Deafness, Osteoarthritis (OA), Renal Disease Additional Past Medical History / Comment(s): admitted 12/20/21 for AMS, admitted 08/08/21 with left lower extremity DVT. Other hx: Chronic hypoxic respiratory failure, home oxygen lately at 3L NC ATC, chronic bullous emphysema, L kidney removed, diverticular disease, benign colon polyps, past ileus, osteoporosis, chronic back pain, L hip nerve pain, occasional dysphagia, UTIs, tinnitis. History of Any Multi-Drug Resistant Organisms: None Reported Past Surgical History: Hernia Repair, Hysterectomy, Tonsillectomy, Tubal Ligation Additional Past Surgical History / Comment(s): R inguinal hernia repair, colonoscopies Past Anesthesia/Blood Transfusion Reactions: No Reported Reaction, Postoperative Nausea & Vomiting (PONV) Past Psychological History: No Psychological Hx Reported Additional Psychological History / Comment(s): Pt resides with her spouse. She has home oxygen, nebulizer, cane and walker. Pt does not drive, her man takes her to appointments and lives nearby. Smoking Status: Former smoker Past Alcohol Use History: None Reported Additional Past Alcohol Use History / Comment(s): Pt started smoking approximately 1971 and quit 11/2021. Past Drug Use History: None Reported - Past Family History Father Family Medical History: Cancer Additional Family Medical History / Comment(s): Lung cancer. Medications and Allergies Home Medications Medication Instructions Recorded Confirmed Type Mometasone/Formoterol [Dulera 200 2 puff INHALATION RT-BID 05/13/14 12/26/21 History Mcg-5 Mcg Inhaler] Denosumab [Prolia] 60 mg SQ Q180D 04/10/20 12/26/21 History Tiotropium 18 Mcg/Puff [Spiriva] 1 cap INHALATION RT-DAILY 04/10/20 12/26/21 History Ipratropium-Albuterol Nebulize 3 ml INHALATION RT-Q4H PRN ml 07/10/21 12/26/21 Rx [Duoneb 0.5 mg-3 mg/3 ml Soln] Albuterol Sulfate [Albuterol 2 puff INHALATION RT-Q6H PRN 08/08/21 12/26/21 History Sulfate Hfa] Acetaminophen Tab [Tylenol] 650 mg PO Q6HR PRN tab 08/09/21 12/26/21 Rx Apixaban [Eliquis] 5 mg PO BID 09/13/21 12/26/21 History Pantoprazole [Protonix] 40 mg PO AC-BRKFST 30 Days #30 tab 09/18/21 12/26/21 Rx Calcium Acetate [PhosLo] 1,334 mg PO TID-W/MEALS 30 Days 12/21/21 12/26/21 Rx #180 tab Darbepoetin Michele [Aranesp] 60 mcg SQ Q7D each 12/21/21 12/26/21 Rx Ipratropium-Albuterol Nebulize 3 ml INHALATION RT-QID 30 Days 12/21/21 12/26/21 Rx [Duoneb 0.5 mg-3 mg/3 ml Soln] #120 each amLODIPine [Norvasc] 5 mg PO DAILY #30 tab 12/21/21 12/26/21 Rx hydrALAZINE HCL [Apresoline] 50 mg PO TID 30 Days #90 tab 12/21/21 12/26/21 Rx predniSONE See Taper PO DIRECTED 12/26/21 12/26/21 History Allergies Allergy/AdvReac Type Severity Reaction Status Date / Time sulfamethoxazole Allergy Unknown Verified 12/26/21 22:24 [From Bactrim] trimethoprim [From Bactrim] Allergy Unknown Verified 12/26/21 22:24 Physical Exam Osteopathic Statement: *. No significant issues noted on an osteopathic structural exam other than those noted in the History and Physical/Consult. Vitals: Vital Signs Temp Pulse Pulse Resp BP BP Pulse Ox 12/27/21 12:20 100 12/27/21 12:09 96 12/27/21 08:02 87 12/27/21 08:00 97.8 F 92 36 H 168/74 99 12/27/21 07:53 90 12/27/21 07:48 12/27/21 07:45 12/27/21 03:54 97.9 F 87 22 158/55 99 12/27/21 03:47 12/27/21 01:05 85 22 144/73 97 12/26/21 23:30 40 H 12/26/21 23:11 97.9 F 66 39 H 175/78 94 L 12/26/21 23:06 12/26/21 22:53 98 F 78 20 165/88 100 12/26/21 22:30 87 165/85 12/26/21 22:00 92 22 165/85 100 12/26/21 21:09 84 22 178/89 99 12/26/21 21:03 12/26/21 19:27 22 12/26/21 19:26 97.7 F 89 22 185/93 98 12/26/21 18:31 98.5 F 90 26 H 132/88 93 L FiO2 12/27/21 12:20 12/27/21 12:09 12/27/21 08:02 12/27/21 08:00 40 12/27/21 07:53 12/27/21 07:48 40 12/27/21 07:45 40 12/27/21 03:54 12/27/21 03:47 40 12/27/21 01:05 12/26/21 23:30 12/26/21 23:11 12/26/21 23:06 40 12/26/21 22:53 12/26/21 22:30 12/26/21 22:00 12/26/21 21:09 12/26/21 21:03 40 12/26/21 19:27 12/26/21 19:26 12/26/21 18:31 Intake and Output 12/26/21 12/27/21 12/27/21 22:59 06:59 14:59 Other: # Voids 1 Weight 60.328 kg 60.328 kg No acute distress, oriented 3. HEENT examination is grossly unremarkable. Neck supple. Full range of motion. No adenopathy thyromegaly or neck vein distention. Cardiovascular examination reveals regular rhythm rate. S1-S2 normal. No S3 or S4. No discernible murmur noted. Heart rate 96 bpm. Heart sounds are distant. Lungs reveal abdomen bilateral rhonchi and crackles. No wheezes. Breath sounds equal bilaterally. Saturations are 99% on BiPAP. Abdomen soft bowel sounds are heard. No masses or tenderness. Extremities are intact. No cyanosis clubbing or edema. Skin is without rash or lesion. Neurologic examination is brief but nonfocal. Results - Laboratory Findings CBC and BMP: 12/27/21 10:26 12/27/21 10:26 PT/INR, D-dimer PT 10.1 sec (9.0-12.0) 12/26/21 19:55 INR 0.9 (<1.2) 12/26/21 19:55 Abnormal lab findings: Abnormal Labs 12/26/21 12/26/21 12/26/21 19:55 19:55 19:55 RBC 2.65 L Hgb 8.8 L D Hct 26.7 L MCV 100.8 H MCHC RDW 16.2 H Plt Count 147 L Lymphocytes # 0.3 L Sodium 132 L Chloride 95 L Carbon Dioxide BUN 42 H Creatinine 3.78 H Glucose 115 H Troponin I 0.067 H* Total Protein 5.8 L Albumin 3.1 L 12/27/21 12/27/21 10:26 10:26 RBC 2.58 L Hgb 8.2 L Hct 26.7 L MCV 103.3 H MCHC 30.9 L RDW 16.5 H Plt Count 137 L Lymphocytes # Sodium 134 L Chloride 96 L Carbon Dioxide 31 H BUN 40 H Creatinine 4.31 H Glucose Troponin I Total Protein Albumin - Diagnostic Findings Chest x-ray: image reviewed Assessment and Plan Assessment: Shortness of breath/acute hypoxemic respiratory failure, secondary to fluid overload, from end-stage renal disease. End-stage renal disease, currently on 3 time a week hemodialysis. History of COPD, from previous heavy tobacco use. History of gastroesophageal reflux disease. Recent episode of respiratory failure requiring short-term intubation and mechanical ventilation. History of left lower extremity DVT. History of diverticular disease. History of osteoporosis. Multiple other medical problems and comorbidities. Plan: Plan dated 12/27/2021. Currently, the patient is receiving hemodialysis. The patient should do better once hemodialysis completed. The patient is currently on prednisone, as well as updraft with both albuterol sulfate and ipratropium bromide. In addition, Symbicort should be added 160/4.5, 2 puffs twice a day. Additional recomm endations and suggestions are forthcoming. We will continue to follow. Prognosis is guarded. Time with Patient: Greater than 30
[2021-12-27 14:05] LABS: Lymphocytes # (M) 0.48 k/uL (1.0-4.8); Neutrophils # (M) 3.32 k/uL (1.3-7.7); Neutrophils % (M) 83 %; Nucleated Red Blood Cells 0 /100 WBC (0-0); Total Cells Counted 100
--- NOTE | 2021-12-27 15:11 | P.HPIM ---
History of Present Illness H&P Date: 12/27/21 This is a 71-year-old female who recently presented to the emergency department via EMS on BiPAP with extreme difficulty in breathing and shortness of breath. Patient reports she was at dialysis becoming extremely short of breath and EMS was called. She follows with Dr. Rosenberg in the outpatient setting with a past medical history of COPD, gastroesophageal reflux disease on a recent admission requiring hemodialysis with end-stage renal disease, chronic hypoxic respiratory failure normally on 3 L via nasal cannula at home, chronic bullous emphysema, history of left kidney removed, past history of DVT and former smoker denies any other illicit drug use or drinking. Patient was recently discharged after starting dialysis and was maintained on Friday//Friday with a permacath placement prior to discharge. Patient with significant weakness initially recommending rehab although patient and family were reluctant and went home with home care. Chest x-ray showed right central venous catheter tip in appropriate position, mild pulmonary vascular congestion with elevated BNP, si milar prominent fibrosis and COPD changes from previous exams. Suggestive of overload. Nephrology along with pulmonary consulted and 2-D echo was ordered. Patient was started on DuoNeb treatments and home medications have been resumed as well as her prednisone taper being titrated down. Will have PT/OT therapy evaluate the patient as well. Labs on admission show a WBC of 5.4, hemoglobin of 8.8, platelets 147, sodium 132, potassium 4.4, BUN 42, creatinine 03.78, troponin 0.067, BNP 19,600 Review Of Systems: Constitutional: No fever, no chills, no night sweats. No weight change. No weakness, fatigue or lethargy. No daytime sleepiness. EENT: No headache. No blurred vision or double vision, no loss of vision. No loss of Hearing, no ringing in the ears, no dizziness. No nasal drainage or congestion. No epistaxis. No sore throat. Lungs: Reports severe shortness of breath,No wheezing. Cardiovascular: No chest pain, no lower extremity edema. No palpitations. No paroxysmal nocturnal dyspnea. No orthopnea. No lightheadedness or dizziness. No syncopal episodes. Abdominal: No abdominal pain. No nausea, vomiting. No diarrhea. No constipation. No bloody or tarry stools.. No loss of appetite. Genitourinary: No dysuria, increased frequency, urgency. No urinary retention. Musculoskeletal: No myalgias. No muscle weakness, no gait dysfunction, no frequent falls. No back pain. No neck pain. Integumentary: No wounds, no lesions. No rash or pruritus. No unusual bruisi ng. No change in hair or nails. Neurologic: No aphasia. No facial droop. No change in mentation. No head injury. No headache. No paralysis. No paresthesia. Reports weakness Psychiatric: No depression. No anxiety. No mood swings. Endocrine: No abnormal blood sugars. No weight change. No excessive sweating or thirst. No cold intolerance. PHYSICAL EXAMINATION: GENERAL: The patient is alert and oriented x3, in acute distress currently on BiPAP requesting to eat, thin built, ill-appearing elderly female HEENT: Pupils are round and equally reacting to light. EOMI. no scleral icterus. No conjunctival pallor. Normocephalic, atraumatic. No pharyngeal erythema. No thyromegaly. CARDIOVASCULAR: S1 and S2 muffled PULMONARY: diminished breath sounds bilaterally with some scattered rhonchi and crackles noted. Wheezing not appreciated on exam ABDOMEN: soft. Nontender on exam.. non-distended, normoactive bowel sounds. No palpable organomegaly. MUSCULOSKELETAL: No joint swelling or deformity. EXTREMITIES: No cyanosis, clubbing, or pedal edema. NEUROLOGICAL: Gross neurological examination did not reveal any focal deficits. Diffuse weakness SKIN: No rashes. Assessment: Shortness of breath with acute on chronic hypoxemic respiratory failure secondary to fluid volume overload with recent end-stage renal disease diagnosis requiring BiPAP Recently placed permacath for end-stage renal disease maintained on hemodialysis Friday//Friday COPD history, not in exacerbation Acute on chronic hypoxic respiratory failure, chronically wears 3 L via nasal cannula outpatient History of chronic bullous emphysema History of DVT of the left lower extremity maintained on eliquis Former smoker Gait dysfunction with generalized weakness GI prophylaxis DVT prophylaxis Full code Plan: Recommend to continue with current medications and management with pulmonary and nephrology following. Patient was at hemodialysis experiencing severe shortness of breath and 911 was called and patient was placed on BiPAP. Patient currently continues on BiPAP as she is receiving hemodialysis with a BNP of 19,000 suggestive of volume overload. Hemoglobin is stable with no active bleeding noted. Home medications have been resumed.atient has been seen and evaluated by PT/OT therapy recommending rehab and patient is scheduled to be discharged to [facility] today. Appropriate home medications resumed. will consult PT/OT therapy for evaluation. Patient was recently discharged home with home care and continue with significant weakness although family wanted her home. Will await PT/OT therapy evaluation. Patient continues with BiPAP and unable to eat due to the BiPAP and will attempt to evaluate and assess patient on nasal cannula and will resume diet after dialysis. Due to multiple complex medical issues, prognosis is extremely guarded. The impression and plan of care has been dictated by Carmen Yeboah, nurse practitioner as directed. Dr. Saadia MD I have performed a history and examination and MDM of this patient, discussed the same with the dictator, and agree with the dictator's assessment and plan as written ,documented as a scribe. Based on total visit time, I have performed more than 50% of the visit. Any additional findings or plans will be noted. Past Medical History Past Medical History: COPD, GERD/Reflux, Hearing Disorder / Deafness, Osteoarthritis (OA), Renal Disease Additional Past Medical History / Comment(s): admitted 12/20/21 for AMS, admitted 08/08/21 with left lower extremity DVT. Other hx: Chronic hypoxic respiratory failure, home oxygen lately at 3L [place] ATC, chronic bullous emphysema, L kidney removed, diverticular disease, benign colon polyps, past ileus, osteoporosis, chronic back pain, L hip nerve pain, occasional dysphagia, UTIs, tinnitis. History of Any Multi-Drug Resistant Organisms: None Reported Past Surgical History: Hernia Repair, Hysterectomy, Tonsillectomy, Tubal Ligation Additional Past Surgical History / Comment(s): R inguinal hernia repair, colon oscopies Past Anesthesia/Blood Transfusion Reactions: No Reported Reaction, Postoperative Nausea & Vomiting (PONV) Past Psychological History: No Psychological Hx Reported Additional Psychological History / Comment(s): Pt resides with her spouse. She has home oxygen, nebulizer, cane and walker. Pt does not drive, her man takes her to appointments and lives nearby. Smoking Status: Former smoker Past Alcohol Use History: None Reported Additional Past Alcohol Use History / Comment(s): Pt started smoking approximately 1971 and quit 11/2021. Past Drug Use History: None Reported - Past Family History Father Family Medical History: Cancer Additional Family Medical History / Comment(s): Lung cancer. Medications and Allergies Home Medications Medication Instructions Recorded Confirmed Type Mometasone/Formoterol [Dulera 200 2 puff INHALATION RT-BID 05/13/14 12/26/21 History Mcg-5 Mcg Inhaler] Denosumab [Prolia] 60 mg SQ Q180D 04/10/20 12/26/21 History Tiotropium 18 Mcg/Puff [Spiriva] 1 cap INHALATION RT-DAILY 04/10/20 12/26/21 History Ipratropium-Albuterol Nebulize 3 ml INHALATION RT-Q4H PRN ml 07/10/21 12/26/21 Rx [Duoneb 0.5 mg-3 mg/3 ml Soln] Albuterol Sulfate [Albuterol 2 puff INHALATION RT-Q6H PRN 08/08/21 12/26/21 History Sulfate Hfa] Acetaminophen Tab [Tylenol] 650 mg PO Q6HR PRN tab 08/09/21 12/26/21 Rx Apixaban [Eliquis] 5 mg PO BID 09/13/21 12/26/21 History Pantoprazole [Protonix] 40 mg PO AC-BRKFST 30 Days #30 tab 09/18/21 12/26/21 Rx Calcium Acetate [PhosLo] 1,334 mg PO TID-W/MEALS 30 Days 12/21/21 12/26/21 Rx #180 tab Darbepoetin Michele [Aranesp] 60 mcg SQ Q7D each 12/21/21 12/26/21 Rx Ipratropium-Albuterol Nebulize 3 ml INHALATION RT-QID 30 Days 12/21/21 12/26/21 Rx [Duoneb 0.5 mg-3 mg/3 ml Soln] #120 each amLODIPine [Norvasc] 5 mg PO DAILY #30 tab 12/21/21 12/26/21 Rx hydrALAZINE HCL [Apresoline] 50 mg PO TID 30 Days #90 tab 12/21/21 12/26/21 Rx predniSONE See Taper PO DIRECTED 12/26/21 12/26/21 History Allergies Allergy/AdvReac Type Severity Reaction Status Date / Time sulfamethoxazole Allergy Unknown Verified 12/26/21 22:24 [From Bactrim] trimethoprim [From Bactrim] Allergy Unknown Verified 12/26/21 22:24 Physical Exam Vitals: Vital Signs Temp Pulse Pulse Resp BP BP Pulse Ox 12/27/21 08:02 87 12/27/21 07:53 90 12/27/21 07:48 12/27/21 07:45 12/27/21 03:54 97.9 F 87 22 158/55 99 12/27/21 03:47 12/27/21 01:05 85 22 144/73 97 12/26/21 23:30 40 H 12/26/21 23:11 97.9 F 66 39 H 175/78 94 L 12/26/21 23:06 12/26/21 22:53 98 F 78 20 165/88 100 12/26/21 22:30 87 165/85 12/26/21 22:00 92 22 165/85 100 12/26/21 21:09 84 22 178/89 99 12/26/21 21:03 12/26/21 19:27 22 12/26/21 19:26 97.7 F 89 22 185/93 98 12/26/21 18:31 98.5 F 90 26 H 132/88 93 L FiO2 12/27/21 08:02 12/27/21 07:53 12/27/21 07:48 40 12/27/21 07:45 40 12/27/21 03:54 12/27/21 03:47 40 12/27/21 01:05 12/26/21 23:30 12/26/21 23:11 12/26/21 23:06 40 12/26/21 22:53 12/26/21 22:30 12/26/21 22:00 12/26/21 21:09 12/26/21 21:03 40 12/26/21 19:27 12/26/21 19:26 12/26/21 18:31 Intake and Output 12/26/21 12/27/21 12/27/21 22:59 06:59 14:59 Other: # Voids 1 Weight 60.328 kg Results CBC & Chem 7: 12/27/21 10:26 12/27/21 10:26 Labs: Abnormal Lab Results - Last 24 Hours (Table) 12/26/21 12/26/21 12/26/21 Range/Units 19:55 19:55 19:55 RBC 2.65 L (3.80-5.40) m/uL Hgb 8.8 L D (11.4-16.0) gm/dL Hct 26.7 L (34.0-46.0) % MCV 100.8 H (80.0-100.0) fL RDW 16.2 H (11.5-15.5) % Plt Count 147 L (150-450) k/uL Lymphocytes # 0.3 L (1.0-4.8) k/uL Sodium 132 L (137-145) mmol/L Chloride 95 L (98-107) mmol/L BUN 42 H (7-17) mg/dL Creatinine 3.78 H (0.52-1.04) mg/dL Glucose 115 H (74-99) mg/dL Troponin I 0.067 H* (0.000-0.034) ng/mL Total Protein 5.8 L (6.3-8.2) g/dL Albumin 3.1 L (3.5-5.0) g/dL Thrombosis Risk Factor Assmnt - DVT/VTE Prophylaxis DVT/VTE Prophylaxis: Pharmacologic Prophylaxis ordered - Choose All That Apply Each Factor Represents 1 point: Abnormal pulmonary function (COPD) Other Risk Factors: No Thrombosis Risk Factor Assessment Total Risk Factor Score: 1 Thrombosis Risk Factor Assessment Level: Low Risk Assessment and Plan Time with Patient: Greater than 30
[2021-12-27] MEDS: hydrALAZINE HCL 50 MG TAB PO SCH ×3 (15:28→23:36)
[2021-12-27] MEDS: amLODIPine 5 MG TAB PO SCH (15:49)
[2021-12-27] MEDS: APIXABAN 5 MG TAB PO SCH ×2 (15:49→22:21)
[2021-12-27] MEDS: predniSONE 20 MG TAB PO SCH (15:49)
[2021-12-27] MEDS: SYMBICORT 160-4.5 MCG INHALER INHALATION SCH (20:36)
[2021-12-28] MEDS: CALCIUM ACETATE 667 MG TAB PO SCH ×3 (06:40→16:22)
[2021-12-28] MEDS: PANTOPRAZOLE 40 MG TABLET PO SCH (06:42)
[2021-12-28] MEDS: IPRATROPIUM-ALBUTEROL 3 ML NEB INHALATION SCH ×4 (07:42→19:19)
[2021-12-28] MEDS: SYMBICORT 160-4.5 MCG INHALER INHALATION SCH ×2 (07:42→19:19)
[2021-12-28 08:09] LABS: Calcium 8.4 mg/dL (8.4-10.2); Potassium 4.6 mmol/L (3.5-5.1)
[2021-12-28 08:15] LABS: HCT 26.9 % (34.0-46.0); HGB 8.3 gm/dL (11.4-16.0); Hypochromasia Marked; MCH 31.7 pg (25.0-35.0); MCHC 30.8 g/dL (31.0-37.0); MCV 103.2 fL (80.0-100.0); Macrocytosis Moderate; Mean Platelet Volume 8.4; Platelet Count 99 k/uL (150-450); RBC 2.61 m/uL (3.80-5.40); WBC 3.1 k/uL (3.8-10.6)
[2021-12-28] MEDS: predniSONE 20 MG TAB PO SCH (08:24)
[2021-12-28] MEDS: APIXABAN 5 MG TAB PO SCH ×2 (08:24→21:21)
[2021-12-28 09:22] LABS: Lymphocytes # (M) 0.43 k/uL (1.0-4.8); Monocytes # (M) 0.12 k/uL (0-1.0); Neutrophils # (M) 2.54 k/uL (1.3-7.7); Neutrophils % (M) 82 %; Nucleated Red Blood Cells 0 /100 WBC (0-0); Total Cells Counted 100
[2021-12-28 09:29] LABS: Anisocytosis (M) Present; Poikilocytosis (M) Present
--- NOTE | 2021-12-28 11:00 | P.PN ---
Subjective Patient is seen for follow-up for acute kidney injury currently hemodialysis dependent. She was admitted with volume overload. Patient was on BiPAP. She was dialyzed yesterday and had 3.3 L of ultrafiltration. Patient is scheduled for hemodialysis again today. Overall patient is feeling well. She is off of BiPAP. She is hungry and having her breakfast. Patient remains oliguric Objective - Vital Signs Vital signs: Vital Signs Temp 96.8 F L 12/28/21 08:00 Pulse 92 12/28/21 10:46 Resp 16 12/28/21 08:00 BP 151/67 12/28/21 08:00 Pulse Ox 98 12/28/21 08:00 FiO2 40 12/27/21 12:00 Intake & Output 12/27/21 12/28/21 12/28/21 18:59 06:59 18:59 Intake Total 450 Output Total 3300 200 Balance -2850 -200 Weight 60.328 kg 56.3 kg Intake: Oral 150 Hemodialysis 300 Output: Urine 200 Hemodialysis 3300 Other: Voiding Method Bedside Commode Bedside Commode # Voids 1 # Bowel Movements 1 - Exam Awake, comfortable, no acute distress Examination of the heart S1 and S2 Examination of the lungs bilateral breath sounds are heard Abdomen is soft nontender Examination of the lower extremities shows no significant edema TECHNICAL WRITING LEAD/MGR exam grossly intact - Labs CBC & Chem 7: 12/28/21 07:27 12/28/21 07:27 Labs: Abnormal Lab Results - Last 24 Hours (Table) 12/27/21 12/27/21 12/28/21 Range/Units 10:26 10:26 07:27 WBC 3.1 L (3.8-10.6) k/uL RBC 2.58 L 2.61 L (3.80-5.40) m/uL Hgb 8.2 L 8.3 L (11.4-16.0) gm/dL Hct 26.7 L 26.9 L (34.0-46.0) % MCV 103.3 H 103.2 H (80.0-100.0) fL MCHC 30.9 L 30.8 L (31.0-37.0) g/dL RDW 16.5 H 16.0 H (11.5-15.5) % Plt Count 137 L 99 L (150-450) k/uL Lymphocytes # (Manual) 0.48 L 0.43 L (1.0-4.8) k/uL Sodium 134 L (137-145) mmol/L Chloride 96 L (98-107) mmol/L Carbon Dioxide 31 H (22-30) mmol/L BUN 40 H (7-17) mg/dL Creatinine 4.31 H (0.52-1.04) mg/dL Glucose (74-99) mg/dL 12/28/21 Range/Units 07:27 WBC (3.8-10.6) k/uL RBC (3.80-5.40) m/uL Hgb (11.4-16.0) gm/dL Hct (34.0-46.0) % MCV (80.0-100.0) fL MCHC (31.0-37.0) g/dL RDW (11.5-15.5) % Plt Count (150-450) k/uL Lymphocytes # (Manual) (1.0-4.8) k/uL Sodium 131 L (137-145) mmol/L Chloride 97 L (98-107) mmol/L Carbon Dioxide (22-30) mmol/L BUN 27 H (7-17) mg/dL Creatinine 3.72 H (0.52-1.04) mg/dL Glucose 72 L (74-99) mg/dL Assessment and Plan Assessment: 1. Acute kidney injury, mostly ATN currently oliguric and dialysis dependent. Hemodialysis was started on 12/11/2021/renal function uremia and fluid overload. 2. Volume overload. Patient will be dialyzed today and then again in a.m. 3. Acute hypoxic respiratory failure secondary to CHF exacerbation. 4. Recent hospitalization with sepsis with urine culture growing E. coli. 5. Anemia, iron replete from last admission. No active bleeding noted 6. Chronic left hydronephrosis with thinning of renal tissue and no plans for intervention from urology standpoint as these are chronic changes. Plan: Hemodialysis today and then again in a.m. Continue current antihypertensive regimen Add Aranesp
--- NOTE | 2021-12-28 11:41 | P.PN ---
Subjective Progress Note Date: 12/28/21 Principal diagnosis: Shortness of breath/fluid overload. Pulmonary consultation dated 12/27/2021. 71-year-old female who was seen in room 265. The patient was seen in the emerge ncy room, on December 26. The patient was having shortness of breath for a number of days prior to admission. The patient was recently inpatient here, and she was discharged on December 22. She spent her entire stay in the intensive care unit. The patient was requiring hemodialysis on most days. At various points during her last stay, she was on BiPAP, her nasal oxygen. Currently, the patient is on BiPAP settings of 10/5 and 40%. The patient is currently receiving hemodialysis. The patient is quite short of breath, and sitting up in bed. She denies any chest pain or chest discomfort. White count 4, hemoglobin 8.2, hematocrit 26.7, and platelet count 237,000. Sodium 134, potassium 4.1, chloride 96, CO2 31, BUN 40, creatinine 4.31. Troponin was 0.067. N-terminal proBNP was 19,600. Chest x-ray was consistent with fluid overload/pulmonary vascular congestion. Progress note dated 12/28/2021. 71-year-old female seen again in room 365. The patient was recently inpatient, with an episode of respiratory failure, requiring transient intubation and mechanical ventilation. She was reevaluated in the emergency room on December 26 after having been discharged on December 22. The patient underwent hemodialysis yesterday, and 3 L was removed. She had hemodialysis again today in another 3 L was removed. The patient did use BiPAP at nighttime, with settings of 10/5 and 40%. The patient is receiving 3 L currently. She's not receiving any IV fluids. She does feel much better. White count 3.1, hemoglobin 8.3, hematocrit 26.9, and platelet count 99,000. Sodium 131, potassium 4.6, chlorides 97, CO2 24, BUN 27, and creatinine 3.72. Objective - Vital Signs Vital signs: Vital Signs Temp 96.8 F L 12/28/21 08:00 Pulse 96 12/28/21 11:03 Resp 16 12/28/21 08:00 BP 151/67 12/28/21 08:00 Pulse Ox 98 12/28/21 08:00 FiO2 40 12/27/21 12:00 Intake & Output 12/27/21 12/28/21 12/28/21 18:59 06:59 18:59 Intake Total 450 Output Total 3300 200 Balance -2850 -200 Weight 60.328 kg 56.3 kg Intake: Oral 150 Hemodialysis 300 Output: Urine 200 Hemodialysis 3300 Other: Voiding Method Bedside Commode Bedside Commode # Voids 1 # Bowel Movements 1 - Exam No acute distress, oriented 3. Currently on 3 L of oxygen. HEENT examination is grossly unremarkable. Neck supple. Full range of motion. No adenopathy thyromegaly or neck vein dist ention. Cardiovascular examination reveals regular rhythm rate. S1-S2 normal. No S3 or S4. No discernible murmur noted. Heart rate 96 bpm. Heart sounds are distant. Lungs reveal improved bilateral breath sounds. Minimal crackles. No wheezes or rhonchi. Saturations are 98% on 3 L. Breath sounds are much improved compared to yesterday's exam. Abdomen soft bowel sounds are heard. No masses or tenderness. Extremities are intact. No cyanosis clubbing or edema. Skin is without rash or lesion. Neurologic examination is brief but nonfocal. - Labs CBC & Chem 7: 12/28/21 07:27 12/28/21 07:27 Labs: Abnormal Lab Results - Last 24 Hours (Table) 12/27/21 12/27/21 12/28/21 Range/Units 10:26 10:26 07:27 WBC 3.1 L (3.8-10.6) k/uL RBC 2.61 L (3.80-5.40) m/uL Hgb 8.3 L (11.4-16.0) gm/dL Hct 26.9 L (34.0-46.0) % MCV 103.2 H (80.0-100.0) fL MCHC 30.8 L (31.0-37.0) g/dL RDW 16.0 H (11.5-15.5) % Plt Count 99 L (150-450) k/uL Lymphocytes # (Manual) 0.48 L 0.43 L (1.0-4.8) k/uL Sodium 134 L (137-145) mmol/L Chloride 96 L (98-107) mmol/L Carbon Dioxide 31 H (22-30) mmol/L BUN 40 H (7-17) mg/dL Creatinine 4.31 H (0.52-1.04) mg/dL Glucose (74-99) mg/dL 12/28/21 Range/Units 07:27 WBC (3.8-10.6) k/uL RBC (3.80-5.40) m/uL Hgb (11.4-16.0) gm/dL Hct (34.0-46.0) % MCV (80.0-100.0) fL MCHC (31.0-37.0) g/dL RDW (11.5-15.5) % Plt Count (150-450) k/uL Lymphocytes # (Manual) (1.0-4.8) k/uL Sodium 131 L (137-145) mmol/L Chloride 97 L (98-107) mmol/L Carbon Dioxide (22-30) mmol/L BUN 27 H (7-17) mg/dL Creatinine 3.72 H (0.52-1.04) mg/dL Glucose 72 L (74-99) mg/dL Assessment and Plan Assessment: Shortness of breath/acute hypoxemic respiratory failure, secondary to fluid overload, from end-stage renal disease. End-stage renal disease, currently on 3 time a week hemodialysis. History of COPD, from previous heavy tobacco use. History of gastroesophageal reflux disease. Recent episode of respiratory failure requiring short-term intubation and mechanical ventilation. History of left lower extremity DVT. History of diverticular disease. History of osteoporosis. Multiple other medical problems and comorbidities. Plan: Plan dated 12/27/2021. Currently, the patient is receiving hemodialysis. The patient should do better once hemodialysis completed. The patient is currently on prednisone, as well as updraft with both albuterol sulfate and ipratropium bromide. In addition, Symbicort should be added 160/4.5, 2 puffs twice a day. Additional recommendations and suggestions are forthcoming. We will continue to follow. Prognosis is guarded. Plan dated 12/28/2021. The patient's doing much better. 3 L was removed during hemodialysis yesterday. 3 L was again removed today with hemodialysis. The patient's on 3 L of oxygen. She did used to BiPAP device at nighttime. Clinically, she looks much improved. She is on Symbicort, and DuoNeb. We will continue to follow and make recommendations where appropriate. Prognosis is certainly guarded. Time with Patient: Less than 30
[2021-12-28] MEDS: SENNOSIDES 8.6 MG TAB PO SCH ×2 (13:13→21:21)
[2021-12-28] MEDS: amLODIPine 5 MG TAB PO SCH (13:14)
[2021-12-28] MEDS: hydrALAZINE HCL 50 MG TAB PO SCH ×3 (13:14→21:21)
--- NOTE | 2021-12-28 19:05 | P.PN ---
Subjective Progress Note Date: 12/28/21 This is a 71-year-old female who recently presented to the emergency department via EMS on BiPAP with extreme difficulty in breathing and shortness of breath. Patient reports she was at dialysis becoming extremely short of breath and EMS was called. She follows with Dr. Rosenberg in the outpatient setting with a past medical history of COPD, gastroesophageal reflux disease on a recent admission requiring hemodialysis with end-stage renal disease, chronic hypoxic respiratory failure normally on 3 L via nasal cannula at home, chronic bullous emphysema, history of left kidney removed, past history of DVT and former smoker denies any other illicit drug use or drinking. Patient was recently discharged after starting dialysis and was maintained on Friday//Friday with a permacath placement prior to discharge. Patient with significant weakness initially recommending rehab although patient and family were reluctant and went home with home care. Chest x-ray showed right central venous catheter tip in appropriate position, mild pulmonary vascular congestion with elevated BNP, similar prominent fibrosis and COPD changes from previous exams. Suggestive of overload. Nephrology along with pulmonary consulted and 2-D echo was ordered. Patient was started on DuoNeb treatments and home medications have been resumed as well as her prednisone taper being titrated down. Will have PT/OT therapy evaluate the patient as well. Labs on admission show a WBC of 5.4, hemoglobin of 8.8, platelets 147, sodium 132, potassium 4.4, BUN 42, creatinine 03.78, troponin 0.067, BNP 19,600 12/28/2021 Patient is seen and evaluated in follow-up today currently receiving hemodialysis with nephrology and pulmonary following closely. Patient is currently tolerating dialysis well on 3 L via nasal cannula. BiPAP on standby and at night as needed. Patient labs reviewed and hemoglobin currently stable. Patient is reporting some constipation and will add senna. Encouraged increased activity as tolerated. Pulmonary following along with nephrology. PT/OT to follow. PHYSICAL EXAMINATION: GENERAL: The patient is alert and oriented x3, currently sitting up in bed on 3L receiving hemodialysis. thin built, ill-appearing elderly female HEENT: Pupils are round and equally reacting to light. EOMI. no scleral icterus. No conjunctival pallor. Normocephalic, atraumatic. No pharyngeal erythema. No thyromegaly. CARDIOVASCULAR: S1 and S2 muffled PULMONARY: diminished breath sounds bilaterally with some scattered rhonchi and crackles noted. Wheezing not appreciated on exam ABDOMEN: soft. Nontender on exam.. non-distended, normoactive bowel sounds. No palpable organomegaly. MUSCULOSKELETAL: No joint swelling or deformity. EXTREMITIES: No cyanosis, clubbing, or pedal edema. NEUROLOGICAL: Gross neurological examination did not reveal any focal deficits. Diffuse weakness SKIN: No rashes. Assessment: Shortness of breath with acute on chronic hypoxemic respiratory failure secondary to fluid volume overload with recent end-stage renal disease diagnosis requiring BiPAP Acute on chronic congestive heart failure, acute exacerbation with diastolic dysfunction, EF is 45-50% Recently placed permacath for end-stage renal disease maintained on hemodialysis Friday//Friday COPD history, not in exacerbation Acute on chronic hypoxic respiratory failure, chronically wears 3 L via nasal cannula outpatient History of chronic bullous emphysema History of DVT of the left lower extremity maintained on eliquis Former smoker Gait dysfunction with generalized weakness GI prophylaxis DVT prophylaxis Full code Plan: Recommend to continue with current medications and management with pulmonary and nephrology following. Patient receiving hemodialysis again today and currently on 3L via NC. Patient reports some improvement in shortness of breath although remains dyspneic even on conversation. Patient is reporting no bowel movement and will add senna. Encouraged oral intake especially protein. Continue with bipap as needed. Duonebs and oral prednisone taper. Encouraged increased activity as tolerated. Repeat am labs. Due to multiple complex medical issues, prognosis is extremely guarded. The impression and plan of care has been dictated by Carmen Yeboah, nurse practitioner as directed. Dr. Saadia MD I have performed a history and examination and MDM of this patient, discussed the same with the dictator, and agree with the dictator's assessment and plan as written ,documented as a scribe. Based on total visit time, I have performed more than 50% of the visit. Any additional findings or plans will be noted. Objective - Vital Signs Vital signs: Vital Signs Temp 97.2 F L 12/28/21 12:49 Pulse 79 12/28/21 12:49 Resp 20 12/28/21 12:49 BP 119/78 12/28/21 12:49 Pulse Ox 98 12/28/21 08:00 FiO2 40 12/27/21 12:00 Intake & Output 11/0312/28/21 12/28/21 18:59 06:59 18:59 Intake Total 450 Output Total 3300 200 3000 Balance -2850 -200 -3000 Weight 60.328 kg 56.3 kg Intake: Oral 150 Hemodialysis 300 Output: Urine 200 Hemodialysis 3300 3000 Other: Voiding Method Bedside Commode Bedside Commode # Voids 1 # Bowel Movements 1 - Labs CBC & Chem 7: 12/28/21 07:27 12/28/21 07:27 Labs: Abnormal Lab Results - Last 24 Hours (Table) 12/27/21 12/27/21 12/28/21 Range/Units 10:26 10:26 07:27 WBC 3.1 L (3.8-10.6) k/uL RBC 2.61 L (3.80-5.40) m/uL Hgb 8.3 L (11.4-16.0) gm/dL Hct 26.9 L (34.0-46.0) % MCV 103.2 H (80.0-100.0) fL MCHC 30.8 L (31.0-37.0) g/dL RDW 16.0 H (11.5-15.5) % Plt Count 99 L (150-450) k/uL Lymphocytes # (Manual) 0.48 L 0.43 L (1.0-4.8) k/uL Sodium 134 L (137-145) mmol/L Chloride 96 L (98-107) mmol/L Carbon Dioxide 31 H (22-30) mmol/L BUN 40 H (7-17) mg/dL Creatinine 4.31 H (0.52-1.04) mg/dL Glucose (74-99) mg/dL 12/28/21 Range/Units 07:27 WBC (3.8-10.6) k/uL RBC (3.80-5.40) m/uL Hgb (11.4-16.0) gm/dL Hct (34.0-46.0) % MCV (80.0-100.0) fL MCHC (31.0-37.0) g/dL RDW (11.5-15.5) % Plt Count (150-450) k/uL Lymphocytes # (Manual) (1.0-4.8) k/uL Sodium 131 L (137-145) mmol/L Chloride 97 L (98-107) mmol/L Carbon Dioxide (22-30) mmol/L BUN 27 H (7-17) mg/dL Creatinine 3.72 H (0.52-1.04) mg/dL Glucose 72 L (74-99) mg/dL
[2021-12-29] MEDS: hydrALAZINE HCL 50 MG TAB PO SCH ×3 (09:17→20:54)
[2021-12-29] MEDS: APIXABAN 5 MG TAB PO SCH ×2 (09:17→20:53)
[2021-12-29] MEDS: amLODIPine 5 MG TAB PO SCH (09:17)
[2021-12-29] MEDS: predniSONE 20 MG TAB PO SCH (09:18)
[2021-12-29] MEDS: SENNOSIDES 8.6 MG TAB PO SCH ×2 (09:19→20:53)
[2021-12-29] MEDS: CALCIUM ACETATE 667 MG TAB PO SCH ×3 (09:20→17:29)
[2021-12-29] MEDS: PANTOPRAZOLE 40 MG TABLET PO SCH (09:21)
[2021-12-29] MEDS: IPRATROPIUM-ALBUTEROL 3 ML NEB INHALATION SCH ×4 (09:29→20:44)
[2021-12-29] MEDS: SYMBICORT 160-4.5 MCG INHALER INHALATION SCH ×2 (09:29→20:44)
--- NOTE | 2021-12-29 10:22 | P.PN ---
Subjective Progress Note Date: 12/29/21 Principal diagnosis: Shortness of breath/fluid overload. Pulmonary consultation dated 12/27/2021. 71-year-old female who was seen in room 265. The patient was seen in the emerge ncy room, on December 26. The patient was having shortness of breath for a number of days prior to admission. The patient was recently inpatient here, and she was discharged on December 22. She spent her entire stay in the intensive care unit. The patient was requiring hemodialysis on most days. At various points during her last stay, she was on BiPAP, her nasal oxygen. Currently, the patient is on BiPAP settings of 10/5 and 40%. The patient is currently receiving hemodialysis. The patient is quite short of breath, and sitting up in bed. She denies any chest pain or chest discomfort. White count 4, hemoglobin 8.2, hematocrit 26.7, and platelet count 237,000. Sodium 134, potassium 4.1, chloride 96, CO2 31, BUN 40, creatinine 4.31. Troponin was 0.067. N-terminal proBNP was 19,600. Chest x-ray was consistent with fluid overload/pulmonary vascular congestion. Progress note dated 12/28/2021. 71-year-old female seen again in room 365. The patient was recently inpatient, with an episode of respiratory failure, requiring transient intubation and mechanical ventilation. She was reevaluated in the emergency room on December 26 after having been discharged on December 22. The patient underwent hemodialysis yesterday, and 3 L was removed. She had hemodialysis again today in another 3 L was removed. The patient did use BiPAP at nighttime, with settings of 10/5 and 40%. The patient is receiving 3 L currently. She's not receiving any IV fluids. She does feel much better. White count 3.1, hemoglobin 8.3, hematocrit 26.9, and platelet count 99,000. Sodium 131, potassium 4.6, chlorides 97, CO2 24, BUN 27, and creatinine 3.72. Progress note dated 12/27/2021. 71-year-old female again seen in room 365. She's currently on 4 L. No IV fluids. The patient has had hemodialysis the last couple of days no new labs today. No chest x-ray today. Microbiology is negative. She is using BiPAP, intermittently, with settings of 10/5 and 40%. Today she's sleeping. No obvious respiratory distress. Objective - Vital Signs Vital signs: Vital Signs Temp 98.7 F 12/29/21 09:40 Pulse 82 12/29/21 09:44 Resp 18 12/29/21 09:44 BP 160/69 12/29/21 09:40 Pulse Ox 97 12/29/21 09:40 FiO2 40 12/27/21 12:00 Intake & Output 12/28/21 12/29/21 12/29/21 18:59 06:59 18:59 Intake Total 120 Output Total 3010 20 Balance -3010 100 Intake: Oral 120 Output: Urine 10 20 Hemodialysis 3000 Other: Voiding Method Bedside Commode Bedside Commode Bedside Commode # Voids 1 1 - Exam No acute distress, oriented 3. Currently on 3 L of oxygen. No use of accessory muscles or conversational dyspnea. HEENT examination is grossly unremarkable. Neck supple. Full range of motion. No adenopathy thyromegaly or neck vein distention. Cardiovascular examination reveals regular rhythm rate. S1-S2 normal. No S3 or S4. No discernible murmur noted. Heart rate 80 bpm. Heart sounds are distant. Lungs reveal improved bilateral breath sounds. Minimal crackles. No wheezes or rhonchi. Saturations are 97% on 4 L. Breath sounds are much improved compared to yesterday's exam. Abdomen soft bowel sounds are heard. No masses or tenderness. Extremities are intact. No cyanosis clubbing or edema. Skin is without rash or lesion. Neurologic examination is brief but nonfocal. - Labs CBC & Chem 7: 12/28/21 07:27 12/28/21 07:27 Assessment and Plan Assessment: Shortness of breath/acute hypoxemic respiratory failure, secondary to fluid overload, from end-stage renal disease. End-stage renal disease, currently on 3 time a week hemodialysis. History of COPD, from previous heavy tobacco use. History of gastroesophageal reflux disease. Recent episode of respiratory failure requiring short-term intubation and mechanical ventilation. History of left lower extremity DVT. History of diverticular disease. History of osteoporosis. Multiple other medical problems and comorbidities. Plan: Plan dated 12/27/2021. Currently, the patient is receiving hemodialysis. The patient should do better once hemodialysis completed. The patient is currently on prednisone, as well as updraft with both albuterol sulfate and ipratropium bromide. In addition, Symbicort should be added 160/4.5, 2 puffs twice a day. Additional recommendations and suggestions are forthcoming. We will continue to follow. Prognosis is guarded. Plan dated 12/28/2021. The patient's doing much better. 3 L was removed during hemodialysis yesterday. 3 L was again removed today with hemodialysis. The patient's on 3 L of oxygen. She did used to BiPAP device at nighttime. Clinically, she looks much improved. She is on Symbicort, and DuoNeb. We will continue to follow and make recommendations where appropriate. Prognosis is certainly guarded. Plan dated 12/29/2021. The patient appears to be doing better. We will continue to follow. Labs, x-ra ys, medications are reviewed. Not sure if the patient is going to have hemodialysis today as yet. Nephrology has not seen her as yet. Clinically, she looks well. We will continue to follow and make recommendations along the way. Prognosis is guarded. Time with Patient: Less than 30
--- NOTE | 2021-12-29 11:36 | XR ---
EXAMINATION TYPE: XR chest 1V portable DATE OF EXAM: 12/28/2021 7:06 PM COMPARISON: Chest radiographs from 12/26/2021. TECHNIQUE: XR chest 1V portable Portable AP radiograph of the chest. CLINICAL INDICATION:Female, 71 years old with history of shortness of breath; FINDINGS: Lungs/Pleura: Similar multifocal airspace opacities. Increased lucency in the lung apices with [place] of the diaphragms. No evidence of pneumothorax or pleural effusion. Pulmonary vascularity: Pulmonary vascular congestion appears to have improved. Heart/mediastinum: Cardiomediastinal silhouette is enlarged and stable. Musculoskeletal: No acute osseous pathology. Lines/Tubes: Right internal jugular central venous catheter with distal tip at the cavoatrial junction. IMPRESSION: 1. Similar suspect some degree pulmonary vascular congestion with superimposed airspace infection no t excluded. 2. COPD.
--- NOTE | 2021-12-29 16:47 | P.PN ---
Subjective Progress Note Date: 12/29/21 Follow-up for acute kidney injury on dialysis. Had dialysis yesterday, only 1.8 L of fluid was removed because of hypotensive episodes. Admits decreased urine output. Objective - Vital Signs Vital signs: Vital Signs Temp 97.0 F L 12/29/21 14:58 Pulse 108 H 12/29/21 15:41 Resp 22 12/29/21 14:58 BP 141/57 12/29/21 14:58 Pulse Ox 94 L 12/29/21 12:00 FiO2 40 12/27/21 12:00 Intake & Output 12/28/21 12/29/21 12/29/21 18:59 06:59 18:59 Intake Total 120 0 Output Total 3010 20 1500 Balance -3010 100 -1500 Intake: Oral 120 0 Output: Urine 10 20 Hemodialysis 3000 1500 Other: Voiding Method Bedside Commode Bedside Commode Bedside Commode # Voids 1 1 - Exam No acute distress S1 S2 heard Lungs clear No edema Right jugular permacath - Labs CBC & Chem 7: 12/28/21 07:27 12/28/21 07:27 Assessment and Plan Assessment: #1 Acute kidney injury secondary to ATN on dialysis. -Dialysis started on 12/11/2021. #2 hypotensive episodes during dialysis. #3 chronic left hydronephrosis #4 CK D3a with a baseline creatinine of 1.3 MG per DL. Plan: #1 adjust antihypertensive medications. Change amlodipine at bedtime. Decrease hydralazine to 50 mg twice a day. #2 plan hemodialysis next treatment on Friday or Friday based on the volume status. #3 monitor for renal recovery
[2021-12-30] MEDS: CALCIUM ACETATE 667 MG TAB PO SCH ×3 (06:46→17:10)
[2021-12-30] MEDS: PANTOPRAZOLE 40 MG TABLET PO SCH (06:46)
[2021-12-30] MEDS: SENNOSIDES 8.6 MG TAB PO SCH ×2 (08:43→20:40)
[2021-12-30] MEDS: hydrALAZINE HCL 50 MG TAB PO SCH ×2 (08:43→20:40)
[2021-12-30] MEDS: APIXABAN 5 MG TAB PO SCH ×2 (08:43→20:40)
[2021-12-30] MEDS: predniSONE 10 MG TAB PO SCH (08:43)
[2021-12-30] MEDS: SYMBICORT 160-4.5 MCG INHALER INHALATION SCH ×2 (08:52→20:45)
[2021-12-30] MEDS: IPRATROPIUM-ALBUTEROL 3 ML NEB INHALATION SCH ×4 (08:52→20:45)
[2021-12-30] MEDS ORDERED: hydrALAZINE HCL 50 MG TAB PO SCH (09:00)
--- NOTE | 2021-12-30 09:46 | P.PN ---
Subjective Progress Note Date: 12/29/21 This is a 71-year-old female who recently presented to the emergency department via EMS on BiPAP with extreme difficulty in breathing and shortness of breath. Patient reports she was at dialysis becoming extremely short of breath and EMS was called. She follows with Dr. Rosenberg in the outpatient setting with a past medical history of COPD, gastroesophageal reflux disease on a recent admission requiring hemodialysis with end-stage renal disease, chronic hypoxic respiratory failure normally on 3 L via nasal cannula at home, chronic bullous emphysema, history of left kidney removed, past history of DVT and former smoker denies any other illicit drug use or drinking. Patient was recently discharged after starting dialysis and was maintained on Friday//Friday with a permacath placement prior to discharge. Patient with significant weakness initially recommending rehab although patient and family were reluctant and went home with home care. Chest x-ray showed right central venous catheter tip in appropriate position, mild pulmonary vascular congestion with elevated BNP, similar prominent fibrosis and COPD changes from previous exams. Suggestive of overload. Nephrology along with pulmonary consulted and 2-D echo was ordered. Patient was started on DuoNeb treatments and home medications have been resumed as well as her prednisone taper being titrated down. Will have PT/OT therapy evaluate the patient as well. Labs on admission show a WBC of 5.4, hemoglobin of 8.8, platelets 147, sodium 132, potassium 4.4, BUN 42, creatinine 03.78, troponin 0.067, BNP 19,600 12/28/2021 Patient is seen and evaluated in follow-up today currently receiving hemodialysis with nephrology and pulmonary following closely. Patient is currently tolerating dialysis well on 3 L via nasal cannula. BiPAP on standby and at night as needed. Patient labs reviewed and hemoglobin currently stable. Patient is reporting some constipation and will add senna. Encouraged increased activity as tolerated. Pulmonary following along with nephrology. PT/OT to follow. 12/29/2021 Patient is currently lying in the bed. Awake alert and oriented 3. Breathing status is better. Requiring oxygen and platelets were nasal cannula. Patient is having hemodialysis today. Next and no complaints of chest pain. Patient did have episode of 11 beats of NSVT. Is symptomatic. Continued on telemetry monitoring. Patient has been afebrile. No complains of dizziness or lightheadedness. Next and nephrology and pulmonary is on board. Awaiting labs today. PHYSICAL EXAMINATION: GENERAL: The patient is alert and oriented x3, currently sitting up in bed on 3L receiving hemodialysis. thin built, ill-appearing elderly female HEENT: Pupils are round and equally reacting to light. EOMI. no scleral icterus. No conjunctival pallor. Normocephalic, atraumatic. No pharyngeal erythema. No thyromegaly. CARDIOVASCULAR: S1 and S2 muffled PULMONARY: diminished breath sounds bilaterally with some scattered rhonchi and crackles noted. Wheezing not appreciated on exam ABDOMEN: soft. Nontender on exam.. non-distended, normoactive bowel sounds. No palpable organomegaly. MUSCULOSKELETAL: No joint swelling or deformity. EXTREMITIES: No cyanosis, clubbing, or pedal edema. NEUROLOGICAL: Gross neurological examination did not reveal any focal deficits. Diffuse weakness SKIN: No rashes. Assessment: Shortness of breath with acute on chronic hypoxemic respiratory failure secondary to fluid volume overload with recent end-stage renal disease diagnosis requiring BiPAP Acute on chronic congestive heart failure, acute exacerbation with diastolic dysfunction, EF is 45-50% Recently placed permacath for end-stage renal disease maintained on hemodialysis Friday//Friday COPD history, not in exacerbation Acute on chronic hypoxic respiratory failure, chronically wears 3 L via nasal cannula outpatient History of chronic bullous emphysema History of DVT of the left lower extremity maintained on eliquis Former smoker Gait dysfunction with generalized weakness GI prophylaxis DVT prophylaxis Full code Plan: Recommend to continue with current medications and management with pulmonary and nephrology following. Patient receiving hemodialysis again today and currently on 4L via NC. Breathing status is improving. Did have a small bowel movement. Continued on Stool softeners.. Encouraged oral intake especially protein. Continue with bipap as needed. Duonebs and oral prednisone taper. Encouraged increased activity as tolerated. Repeat am labs. Due to multiple complex medical issues, prognosis is extremely guarded. Objective - Vital Signs Vital signs: Vital Signs Temp 97.0 F L 12/29/21 14:58 Pulse 104 H 12/29/21 17:28 Resp 18 12/29/21 17:28 BP 136/65 12/29/21 17:28 Pulse Ox 94 L 12/29/21 17:28 FiO2 40 12/27/21 12:00 Intake & Output 12/29/21 12/29/21 12/30/21 06:59 18:59 05:59 Intake Total 120 120 Output Total 20 1500 Balance 100 -1380 Intake: Oral 120 120 Output: Urine 20 Hemodialysis 1500 Other: Voiding Method Bedside Commode Bedside Commode # Voids 1 - Labs CBC & Chem 7: 12/28/21 07:27 12/28/21 07:27
[2021-12-30 10:04] LABS: Calcium 9.1 mg/dL (8.4-10.2)
[2021-12-30 10:06] LABS: Potassium 4.2 mmol/L (3.5-5.1)
--- NOTE | 2021-12-30 11:21 | P.PN ---
Subjective Progress Note Date: 12/30/21 Principal diagnosis: Shortness of breath/fluid overload. Pulmonary consultation dated 12/27/2021. 71-year-old female who was seen in room 265. The patient was seen in the emerge ncy room, on December 26. The patient was having shortness of breath for a number of days prior to admission. The patient was recently inpatient here, and she was discharged on December 22. She spent her entire stay in the intensive care unit. The patient was requiring hemodialysis on most days. At various points during her last stay, she was on BiPAP, her nasal oxygen. Currently, the patient is on BiPAP settings of 10/5 and 40%. The patient is currently receiving hemodialysis. The patient is quite short of breath, and sitting up in bed. She denies any chest pain or chest discomfort. White count 4, hemoglobin 8.2, hematocrit 26.7, and platelet count 237,000. Sodium 134, potassium 4.1, chloride 96, CO2 31, BUN 40, creatinine 4.31. Troponin was 0.067. N-terminal proBNP was 19,600. Chest x-ray was consistent with fluid overload/pulmonary vascular congestion. Progress note dated 12/28/2021. 71-year-old female seen again in room 365. The patient was recently inpatient, with an episode of respiratory failure, requiring transient intubation and mechanical ventilation. She was reevaluated in the emergency room on December 26 after having been discharged on December 22. The patient underwent hemodialysis yesterday, and 3 L was removed. She had hemodialysis again today in another 3 L was removed. The patient did use BiPAP at nighttime, with settings of 10/5 and 40%. The patient is receiving 3 L currently. She's not receiving any IV fluids. She does feel much better. White count 3.1, hemoglobin 8.3, hematocrit 26.9, and platelet count 99,000. Sodium 131, potassium 4.6, chlorides 97, CO2 24, BUN 27, and creatinine 3.72. Progress note dated 12/27/2021. 71-year-old female again seen in room 365. She's currently on 4 L. No IV fluids. The patient has had hemodialysis the last couple of days no new labs today. No chest x-ray today. Microbiology is negative. She is using BiPAP, intermittently, with settings of 10/5 and 40%. Today she's sleeping. No obvious respiratory distress. Progress note dated 12/30/2021. 71-year-old female seen again in room 365. The patient is currently on 3 L of oxygen. She's not receiving any IV fluids. She apparently did have hemodialysis yesterday. She is feeling a bit better. Still very short of breath with any activity. Labs today include a sodium 134, potassium 4.2, chlorides 103, CO2 22, BUN 19, and creatinine 2.93. Chest x-ray done December 29 shows changes of COPD, as well as some pulmonary vascular congestion. Objective - Vital Signs Vital signs: Vital Signs Temp 98.2 F 12/30/21 08:42 Pulse 62 12/30/21 09:18 Resp 18 12/30/21 09:18 BP 125/52 12/30/21 08:42 Pulse Ox 95 12/30/21 08:54 FiO2 40 12/27/21 12:00 Intake & Output 12/29/21 12/30/21 12/30/21 19:59 06:59 18:59 Intake Total 500 Output Total Balance 500 Intake: Oral 500 Output: Urine Hemodialysis Other: Voiding Method Bedside Commode - Exam No acute distress, oriented 3. Currently on 3 L of oxygen. No use of accessory muscles or conversational dyspnea. HEENT examination is grossly unremarkable. Neck supple. Full range of motion. No adenopathy thyromegaly or neck vein distention. Cardiovascular examination reveals regular rhythm rate. S1-S2 normal. No S3 or S4. No discernible murmur noted. Heart rate 62 bpm. Heart sounds are distant. Lungs reveal improved bilateral breath sounds. Minimal crackles. No wheezes or rhonchi. Saturations are 95% on 3 L. Breath sounds are much improved. Abdomen soft bowel sounds are heard. No masses or tenderness. Extremities are intact. No cyanosis clubbing or edema. Skin is without rash or lesion. Neurologic examination is brief but nonfocal. - Labs CBC & Chem 7: 12/28/21 07:27 12/30/21 09:30 Labs: Abnormal Lab Results - Last 24 Hours (Table) 12/30/21 Range/Units 09:30 Sodium 134 L (137-145) mmol/L BUN 19 H (7-17) mg/dL Creatinine 2.93 H (0.52-1.04) mg/dL Glucose 142 H (74-99) mg/dL Assessment and Plan Assessment: Shortness of breath/acute hypoxemic respiratory failure, secondary to fluid overload, from end-stage renal disease. End-stage renal disease, currently on 3 time a week hemodialysis. History of COPD, from previous heavy tobacco use. History of gastroesophageal reflux disease. Recent episode of respiratory failure requiring short-term intubation and mechanical ventilation. History of left lower extremity DVT. History of diverticular disease. History of osteoporosis. Multiple other medical problems and comorbidities. Plan: Plan dated 12/27/2021. Currently, the patient is receiving hemodialysis. The patient should do better once hemodialysis completed. The patient is currently on prednisone, as well as updraft with both albuterol sulfate and ipratropium bromide. In addition, Symbicort should be added 160/4.5, 2 puffs twice a day. Additional recommendations and suggestions are forthcoming. We will continue to follow. Prognosis is guarded. Plan dated 12/28/2021. The patient's doing much better. 3 L was removed during hemodialysis yesterday. 3 L was again removed today with hemodialysis. The patient's on 3 L of oxygen. She did used to BiPAP device at nighttime. Clinically, she looks much improved. She is on Symbicort, and DuoNeb. We will continue to follow and make recommendations where appropriate. Prognosis is certainly guarded. Plan dated 12/29/2021. The patient appears to be doing better. We will continue to follow. Labs, x- rays, medications are reviewed. Not sure if the patient is going to have hemodialysis today as yet. Nephrology has not seen her as yet. Clinically, she looks well. We will continue to follow and make recommendations along the way. Prognosis is guarded. Plan dated 12/30/2021. Labs, x-rays, and medications are reviewed. Clinically, the patient's much i mproved. The combination of treating her for COPD, plus daily hemodialysis, have really helped quite a bit. We will continue to follow the patient and make recommendations along the way. The patient's overall prognosis remains very guarded. No additional recommendations are made at this time. Time with Patient: Less than 30
[2021-12-30 12:09] LABS: Anisocytosis Slight; HCT 24.4 % (34.0-46.0); HGB 8.6 gm/dL (11.4-16.0); Hypochromasia Moderate; MCH 35.3 pg (25.0-35.0); MCV 100.8 fL (80.0-100.0); Macrocytosis Slight; Mean Platelet Volume 10.8; RBC 2.43 m/uL (3.80-5.40); WBC 5.3 k/uL (3.8-10.6)
[2021-12-30 12:10] LABS: Platelet Count 59 k/uL (150-450)
[2021-12-30 12:22] LABS: Band Neutrophils % 2 %; Eosinophils # (M) 0.11 k/uL (0-0.7); Lymphocytes # (M) 0.42 k/uL (1.0-4.8); Metamyelocytes # (M) 0.05 k/uL (0); Metamyelocytes % 1 %; Monocytes # (M) 0.48 k/uL (0-1.0); Neutrophils % (M) 78 %; Nucleated Red Blood Cells 0 /100 WBC (0-0); Stomatocytes Present; Total Cells Counted 100
--- NOTE | 2021-12-30 16:26 | P.PN ---
Subjective Progress Note Date: 12/30/21 Follow-up for acute kidney injury on dialysis. Had dialysis yesterday, only 1.8 L of fluid was removed because of hypotensive episodes. Admits decreased urine output. Objective - Vital Signs Vital signs: Vital Signs Temp 98.2 F 12/30/21 08:42 Pulse 100 12/30/21 15:01 Resp 18 12/30/21 15:01 BP 135/74 12/30/21 12:50 Pulse Ox 97 12/30/21 12:50 FiO2 40 12/27/21 12:00 Intake & Output 12/29/21 12/30/21 12/30/21 19:59 06:59 18:59 Intake Total 118 Output Total Balance 118 Intake: Oral 118 Output: Urine Hemodialysis Other: Voiding Method Bedside Commode - Exam No acute distress S1 S2 heard Lungs clear No edema Right jugular permacath - Labs CBC & Chem 7: 12/30/21 10:41 12/30/21 09:30 Labs: Abnormal Lab Results - Last 24 Hours (Table) 12/30/21 12/30/21 Range/Units 09:30 10:41 RBC 2.43 L (3.80-5.40) m/uL Hgb 8.6 L (11.4-16.0) gm/dL Hct 24.4 L (34.0-46.0) % MCV 100.8 H (80.0-100.0) fL MCH 35.3 H (25.0-35.0) pg RDW 16.0 H (11.5-15.5) % Plt Count 59 L (150-450) k/uL Lymphocytes # (Manual) 0.42 L (1.0-4.8) k/uL Metamyelocytes # (Man) 0.05 H (0) k/uL Sodium 134 L (137-145) mmol/L BUN 19 H (7-17) mg/dL Creatinine 2.93 H (0.52-1.04) mg/dL Glucose 142 H (74-99) mg/dL Assessment and Plan Assessment: #1 Acute kidney injury secondary to ATN on dialysis. -Dialysis started on 12/11/2021. #2 hypotensive episodes during dialysis. #3 chronic left hydronephrosis #4 CK D3a with a baseline creatinine of 1.3 MG per DL. Plan: #1 antihypertensive medications adjusted yesterday. Blood pressures much better today. #2 plan hemodialysis tomorrow with the goal UF of 2.5 L.. #3 monitor for renal recovery
[2021-12-30] MEDS: amLODIPine 5 MG TAB PO SCH (20:41)
[2021-12-31] MEDS: hydrALAZINE HCL 20 MG/ML 1 ML VIAL IVP PRN (00:58)
[2021-12-31 06:32] LABS: Glucose,Whole Blood 123 mg/dL (70-110)
--- NOTE | 2021-12-31 06:54 | XR ---
EXAMINATION TYPE: XR chest 1V portable DATE OF EXAM: 12/31/2021 6:45 AM COMPARISON: Chest radiographs from 12/29/2021. TECHNIQUE: XR chest 1V portable Frontal view of the chest. CLINICAL INDICATION:Female, 71 years old with history of Trouble breathing; FINDINGS: Lungs/Pleura: Similar bibasilar multifocal airspace opacities. Increased lucency in the lung apices o f flattening of the diaphragms. No evidence of pneumothorax or pleural effusion. Pulmonary vascularity: Similar mild pulmonary vascular congestion. Heart/mediastinum: Cardiomediastinal silhouette is prominent and stable. Musculoskeletal: No acute osseous pathology. Other findings: None Lines/Tubes: Right internal jugular central venous dual-lumen catheter with distal tip at the superior cavoatrial junction. IMPRESSION: 1. Similar mild pulmonary vascular congestion with bibasilar opacities. Superimposed infection not e xcluded. 2. COPD changes.
[2021-12-31 07:02] LABS: Allen Test Performed? Yes
[2021-12-31 07:03] LABS: Glucose,Whole Blood 120 mg/dL (70-110)
[2021-12-31 07:05] LABS: ABG Base Excess -1.4 mmol/L; ABG HCO3 24 mmol/L (21-25); ABG PCO2 43 mmHg (35-45); ABG PH 7.36 (7.35-7.45); ABG PO2 71 mmHg (83-108); ABG TCO2 26 mmol/L (19-24)
[2021-12-31] MEDS: SYMBICORT 160-4.5 MCG INHALER INHALATION SCH ×2 (07:11→21:27)
[2021-12-31] MEDS: IPRATROPIUM-ALBUTEROL 3 ML NEB INHALATION SCH ×4 (07:11→21:27)
[2021-12-31 07:54] LABS: Calcium 10.7 mg/dL (8.4-10.2); Potassium 4.6 mmol/L (3.5-5.1)
[2021-12-31] MEDS: PANTOPRAZOLE 40 MG TABLET PO SCH (08:14)
[2021-12-31] MEDS: CALCIUM ACETATE 667 MG TAB PO SCH (08:14)
[2021-12-31 08:18] LABS: HCT 27.5 % (34.0-46.0); HGB 8.5 gm/dL (11.4-16.0); Hypochromasia Marked; MCH 32.4 pg (25.0-35.0); MCHC 30.9 g/dL (31.0-37.0); MCV 104.7 fL (80.0-100.0); Macrocytosis Moderate; RBC 2.63 m/uL (3.80-5.40); RDW 15.6 % (11.5-15.5); WBC 5.2 k/uL (3.8-10.6)
[2021-12-31 08:22] LABS: Platelet Count 68 k/uL (150-450)
--- NOTE | 2021-12-31 09:08 | P.PN ---
Subjective Patient is seen in follow-up for acute kidney injury, hemodialysis dependent. Patient became short of breath early this morning and was transferred to the ICU. Currently on BiPAP. Minimal urine output. Vital signs are stable. General: Sitting up on bed. HEENT: On BiPAP. LUNGS: Breath sounds decreased. HEART: Rate and Rhythm are regular. ABDOMEN: Soft, no distention. EXTREMITITES: No edema. Objective - Vital Signs Vital signs: Vital Signs Temp 97.7 F 12/31/21 04:38 Pulse 88 12/31/21 07:24 Resp 24 12/31/21 04:38 BP 169/82 12/31/21 04:38 Pulse Ox 98 12/31/21 04:38 FiO2 40 12/31/21 07:05 Intake & Output 12/30/21 12/31/21 12/31/21 18:59 06:59 18:59 Intake Total 118 540 Output Total 0 Balance 118 540 Weight 55.3 kg Intake: Oral 118 540 Output: Urine 0 Other: Voiding Method Bedside Commode Bedside Commode # Bowel Movements 1 - Labs CBC & Chem 7: 12/31/21 07:31 12/31/21 07:31 Labs: Abnormal Lab Results - Last 24 Hours (Table) 12/30/21 12/30/21 12/31/21 Range/Units 09:30 10:41 06:30 RBC 2.43 L (3.80-5.40) m/uL Hgb 8.6 L (11.4-16.0) gm/dL Hct 24.4 L (34.0-46.0) % MCV 100.8 H (80.0-100.0) fL MCH 35.3 H (25.0-35.0) pg MCHC (31.0-37.0) g/dL RDW 16.0 H (11.5-15.5) % Plt Count 59 L (150-450) k/uL Lymphocytes # (Manual) 0.42 L (1.0-4.8) k/uL Metamyelocytes # (Man) 0.05 H (0) k/uL ABG pO2 (83-108) mmHg ABG Total CO2 (19-24) mmol/L Sodium 134 L (137-145) mmol/L BUN 19 H (7-17) mg/dL Creatinine 2.93 H (0.52-1.04) mg/dL Glucose 142 H (74-99) mg/dL POC Glucose (mg/dL) 123 H (70-110) mg/dL Calcium (8.4-10.2) mg/dL 12/31/21 12/31/21 12/31/21 Range/Units 07:01 07:03 07:31 RBC 2.63 L (3.80-5.40) m/uL Hgb 8.5 L (11.4-16.0) gm/dL Hct 27.5 L (34.0-46.0) % MCV 104.7 H (80.0-100.0) fL MCH (25.0-35.0) pg MCHC 30.9 L (31.0-37.0) g/dL RDW 15.6 H (11.5-15.5) % Plt Count (150-450) k/uL Lymphocytes # (Manual) (1.0-4.8) k/uL Metamyelocytes # (Man) (0) k/uL ABG pO2 71 L (83-108) mmHg ABG Total CO2 26 H (19-24) mmol/L Sodium (137-145) mmol/L BUN (7-17) mg/dL Creatinine (0.52-1.04) mg/dL Glucose (74-99) mg/dL POC Glucose (mg/dL) 120 H (70-110) mg/dL Calcium (8.4-10.2) mg/dL 12/31/21 Range/Units 07:31 RBC (3.80-5.40) m/uL Hgb (11.4-16.0) gm/dL Hct (34.0-46.0) % MCV (80.0-100.0) fL MCH (25.0-35.0) pg MCHC (31.0-37.0) g/dL RDW (11.5-15.5) % Plt Count (150-450) k/uL Lymphocytes # (Manual) (1.0-4.8) k/uL Metamyelocytes # (Man) (0) k/uL ABG pO2 (83-108) mmHg ABG Total CO2 (19-24) mmol/L Sodium 132 L (137-145) mmol/L BUN 42 H (7-17) mg/dL Creatinine 5.18 H (0.52-1.04) mg/dL Glucose 122 H (74-99) mg/dL POC Glucose (mg/dL) (70-110) mg/dL Calcium 10.7 H (8.4-10.2) mg/dL Assessment and Plan Plan: Assessment: 1. Acute kidney injury, hemodialysis dependent. Has permacath. Maintained on hemodialysis on Friday schedule. Serologies done November 2021 over negative. Dialysis was started 12/11/2021. 2. Acute hypoxic respiratory failure secondary to volume overload and COPD. 3. Chronic left hydronephrosis seen by urology. No interventions planned. 4. Chronic kidney disease stage III with baseline creatinine near 1.3 from September 2021. 5. Volume overload. 6. Acute on chronic systolic CHF with ejection fraction of 45-50% with moderate pulmonary hypertension. 7. Hypercalcemia. Patient is on PhosLo. Prior calcium levels have been normal. 8. Anemia of chronic kidney disease. Plan: Hemodialysis today. Ultrafiltration 3 L or as able to tolerate. Hold PhosLo. Check phosphorus level. Wean FiO2. Monitor for renal recovery outpatient. Check iron studies.
[2021-12-31 09:12] LABS: Lymphocytes # (M) 0.83 k/uL (1.0-4.8); Monocytes # (M) 0.62 k/uL (0-1.0); Neutrophils # (M) 3.74 k/uL (1.3-7.7); Neutrophils % (M) 72 %; Nucleated Red Blood Cells 0 /100 WBC (0-0); Total Cells Counted 100
[2021-12-31] MEDS: hydrALAZINE HCL 50 MG TAB PO SCH ×2 (09:44→21:54)
[2021-12-31] MEDS: SENNOSIDES 8.6 MG TAB PO SCH ×2 (09:44→21:54)
--- NOTE | 2021-12-31 12:50 | P.PN ---
Subjective Progress Note Date: 12/31/21 Principal diagnosis: Acute hypoxic respiratory failure secondary to fluid overload from end-stage renal disease 71-year-old female who was seen in room 265. The patient was seen in the emergency room, on December 26. The patient was having shortness of breath for a number of days prior to admission. The patient was recently inpatient here, and she was discharged on December 22. She spent her entire stay in the intensive care unit. The patient was requiring hemodialysis on most days. At various points during her last stay, she was on BiPAP, her nasal oxygen. Currently, the patient is on BiPAP settings of 10/5 and 40%. The patient is currently receiving hemodialysis. The patient is quite short of breath, and sitting up in bed. She denies any chest pain or chest discomfort. White count 4, hemoglobin 8.2, hematocrit 26.7, and platelet count 237,000. Sodium 134, potassium 4.1, chloride 96, CO2 31, BUN 40, creatinine 4.31. Troponin was 0.067. N-terminal proBNP was 19,600. Chest x-ray was consistent with fluid overload/pulmonary vas cular congestion. Progress note dated 12/28/2021. 71-year-old female seen again in room 365. The patient was recently inpatient, with an episode of respiratory failure, requiring transient intubation and mechanical ventilation. She was reevaluated in the emergency room on December 26 after having been discharged on December 22. The patient underwent hemodialysis yesterday, and 3 L was removed. She had hemodialysis again today in another 3 L was removed. The patient did use BiPAP at nighttime, with settings of 10/5 and 40%. The patient is receiving 3 L currently. She's not receiving any IV fluids. She does feel much better. White count 3.1, hemoglobin 8.3, hematocrit 26.9, and platelet count 99,000. Sodium 131, potassium 4.6, chlorides 97, CO2 24, BUN 27, and creatinine 3.72. Progress note dated 12/27/2021. 71-year-old female again seen in room 365. She's currently on 4 L. No IV fluids. The patient has had hemodialysis the last couple of days no new labs today. No chest x-ray today. Microbiology is negative. She is using BiPAP, intermittently, with settings of 10/5 and 40%. Today she's sleeping. No obvious respiratory distress. Progress note dated 12/30/2021. 71-year-old female seen again in room 365. The patient is currently on 3 L of oxygen. She's not receiving any IV fluids. She apparently did have hemodialysis yesterday. She is feeling a bit better. Still very short of breath with any activity. Labs today include a sodium 134, potassium 4.2, chl orides 103, CO2 22, BUN 19, and creatinine 2.93. Chest x-ray done December 29 shows changes of COPD, as well as some pulmonary vascular congestion. Reevaluated today on , patient was brought back to ICU this morning because of worsening shortness of breath, and required placement on BiPAP. Patient is now on BiPAP 11/28/40%. ABG showed a pO2 of 71 pCO2 43 pH of 7.36. Chest x-ray is showing worsening pulmonary edema/fluid overload from end-stage renal disease patient was seen by nephrology, and the plan is to hemodialyze the patient again this morning. In the meantime the patient seems to be comfortable on BiPAP, not in significant distress. She is only on 40% and she has adequate O2 saturation. WBC count is 5.2 hemoglobin is 8.5, electrolytes are normal BUN is 42 creatinine 5.18 Objective - Vital Signs Vital signs: Vital Signs Temp 97.2 F L 12/31/21 08:00 Pulse 93 12/31/21 12:00 Resp 25 H 12/31/21 12:00 BP 108/66 12/31/21 12:00 Pulse Ox 97 12/31/21 12:00 FiO2 40 12/31/21 10:53 Intake & Output 12/30/21 12/31/21 12/31/21 18:59 06:59 18:59 Intake Total 118 540 Output Total 0 0 Balance 118 540 0 Weight 55.3 kg Intake: Oral 118 540 Output: Urine 0 0 Other: Voiding Method Bedside Commode Bedside Commode # Bowel Movements 1 - Exam Physical Exam: Revealed 71-year-old female on BiPAP, in no distress Head: Atraumatic, normocephalic. HEENT:[Neck is supple.] [No neck masses.] [No thyromegaly.] [No JVD.] Chest: [Crackles noted at the bases bilaterally. Cardiac Exam: [Normal S1 and S2, no S3 gallop, no murmur.] Abdomen: [Soft, nontender, no megaly, no rebound, no guarding, normal bowel sounds.] Extremities: [No clubbing, no edema, no cyanosis.] Neurological Exam: [No focal neurologic deficit.] Alert and oriented 3. Psychiatric: Normal mood affect and normal mental status exam. Skin: No rashes. - Labs CBC & Chem 7: 12/31/21 07:31 12/31/21 07:31 Labs: Abnormal Lab Results - Last 24 Hours (Table) 12/31/21 12/31/21 12/31/21 Range/Units 06:30 07:01 07:03 RBC (3.80-5.40) m/uL Hgb (11.4-16.0) gm/dL Hct (34.0-46.0) % MCV (80.0-100.0) fL MCHC (31.0-37.0) g/dL RDW (11.5-15.5) % Plt Count (150-450) k/uL Lymphocytes # (Manual) (1.0-4.8) k/uL ABG pO2 71 L (83-108) mmHg ABG Total CO2 26 H (19-24) mmol/L Sodium (137-145) mmol/L BUN (7-17) mg/dL Creatinine (0.52-1.04) mg/dL Glucose (74-99) mg/dL POC Glucose (mg/dL) 123 H 120 H (70-110) mg/dL Calcium (8.4-10.2) mg/dL 12/31/21 12/31/21 Range/Units 07:31 07:31 RBC 2.63 L (3.80-5.40) m/uL Hgb 8.5 L (11.4-16.0) gm/dL Hct 27.5 L (34.0-46.0) % MCV 104.7 H (80.0-100.0) fL MCHC 30.9 L (31.0-37.0) g/dL RDW 15.6 H (11.5-15.5) % Plt Count 68 L (150-450) k/uL Lymphocytes # (Manual) 0.83 L (1.0-4.8) k/uL ABG pO2 (83-108) mmHg ABG Total CO2 (19-24) mmol/L Sodium 132 L (137-145) mmol/L BUN 42 H (7-17) mg/dL Creatinine 5.18 H (0.52-1.04) mg/dL Glucose 122 H (74-99) mg/dL POC Glucose (mg/dL) (70-110) mg/dL Calcium 10.7 H (8.4-10.2) mg/dL Assessment and Plan Assessment: Impression: Acute hypoxic respiratory failure secondary to fluid overload secondary to chronic kidney disease requiring hemodialysis. Chronic left hydronephrosis Volume overload Hypercalcemia secondary to renal failure Chronic anemia secondary to chronic kidney disease History of underlying COPD History of GERD History of respiratory failure requiring short-term intubation and mechanical ventilation History of left lower extremity DVT History of osteoporosis History of diverticular disease Recommendation: Continue to monitor in the ICU Continue BiPAP Agree with hemodialysis today Titrate oxygen accordingly Continue GI and DVT prophylaxis We will continue to follow while in the ICU. Prognosis seems to be very poor and guarded patient was just recently discharged from the hospital on 12/22 and she was just readmitted on 12/26. Time with Patient: Less than 30
[2021-12-31 13:40] LABS: Phosphorus 1.6 mg/dL (2.5-4.5)
[2021-12-31 13:43] VITALS: BMI 20.9
[2021-12-31 13:46] LABS: INR 0.9 (<1.2); Partial Thromboplastin Time 23.4 sec (22.0-30.0); Prothrombin Time 9.6 sec (9.0-12.0)
--- NOTE | 2021-12-31 14:37 | P.PN ---
Subjective Progress Note Date: 12/31/21 This is a 71-year-old female who recently presented to the emergency department via EMS on BiPAP with extreme difficulty in breathing and shortness of breath. Patient reports she was at dialysis becoming extremely short of breath and EMS was called. She follows with Dr. Rosenberg in the outpatient setting with a past medical history of COPD, gastroesophageal reflux disease on a recent admission requiring hemodialysis with end-stage renal disease, chronic hypoxic respiratory failure normally on 3 L via nasal cannula at home, chronic bullous emphysema, history of left kidney removed, past history of DVT and former smoker denies any other illicit drug use or drinking. Patient was recently discharged after starting dialysis and was maintained on Friday//Friday with a permacath placement prior to discharge. Patient with significant weakness initially recommending rehab although patient and family were reluctant and went home with home care. Chest x-ray showed right central venous catheter tip in appropriate position, mild pulmonary vascular congestion with elevated BNP, similar prominent fibrosis and COPD changes from previous exams. Suggestive of overload. Nephrology along with pulmonary consulted and 2-D echo was ordered. Patient was started on DuoNeb treatments and home medications have been resumed as well as her prednisone taper being titrated down. Will have PT/OT therapy evaluate the patient as well. Labs on admission show a WBC of 5.4, hemoglobin of 8.8, platelets 147, sodium 132, potassium 4.4, BUN 42, creatinine 03.78, troponin 0.067, BNP 19,600 12/28/2021 Patient is seen and evaluated in follow-up today currently receiving hemodialysis with nephrology and pulmonary following closely. Patient is currently tolerating dialysis well on 3 L via nasal cannula. BiPAP on standby and at night as needed. Patient labs reviewed and hemoglobin currently stable. Patient is reporting some constipation and will add senna. Encouraged increased activity as tolerated. Pulmonary following along with nephrology. PT/OT to follow. 12/29/2021 Patient is currently lying in the bed. Awake alert and oriented 3. Breathing status is better. Requiring oxygen and platelets were nasal cannula. Patient is having hemodialysis today. Next and no complaints of chest pain. Patient did have episode of 11 beats of NSVT. Is symptomatic. Continued on telemetry monitoring. Patient has been afebrile. No complains of dizziness or lightheadedness. Next and nephrology and pulmonary is on board. Awaiting labs today. 12/31/2021 Patient is seen and evaluated in follow-up this morning apparently was an A team this morning for increasing shortness of breath and placed on BiPAP. FiO2 is 40% with a PEEP of 5. Patient was transferred to the ICU and also having some hypotension. Patient is receiving dialysis currently continued on BiPAP continues to report shortness of breath and exhaustion. Blood pressures are soft and per RN tech working on 3 L removal. Patient is not currently requiring any pressor support although blood pressures are extremely soft at 90 systolic. Kidney functions were worse with a creatinine of 5.18, sodium is 132 and potassium is 4.6. Hemoglobin is stable at 8.5 and platelets are low at 68. Patient oral anticoagulant placed on hold. Patient is afebrile with no reports of chest pain or palpitations noted. Review of systems: Unable to obtain today as patient is hunched over on a BiPAP shortness of breath receiving hemodialysis PHYSICAL EXAMINATION: GENERAL: The patient is alert and oriented x3, on BiPAP, receiving hemodialysis. thin built, ill-appearing elderly female HEENT: Pupils are round and equally reacting to light. EOMI. no scleral icterus. No conjunctival pallor. Normocephalic, atraumatic. No pharyngeal erythema. No thyromegaly. CARDIOVASCULAR: S1 and S2 muffled PULMONARY: diminished breath sounds bilaterally with some scattered rhonchi and crackles noted. Wheezing not appreciated ABDOMEN: soft. Nontender on exam.. non-distended, normoactive bowel sounds. No palpable organomegaly. MUSCULOSKELETAL: No joint swelling or deformity. EXTREMITIES: No cyanosis, clubbing, or pedal edema. NEUROLOGICAL: Gross neurological examination did not reveal any focal deficits. Diffuse weakness SKIN: No rashes. Assessment: Shortness of breath with acute on chronic hypoxemic respiratory failure secondary to fluid volume overload with recent end-stage renal disease diagnosis requiring BiPAP Acute on chronic congestive heart failure, acute exacerbation with diastolic dysfunction, EF is 45-50% Recently placed permacath for end-stage renal disease maintained on hemodialysis Friday//Friday COPD history, not in exacerbation Chronic anemia, secondary to chronic kidney disease Acute on chronic hypoxic respiratory failure, chronically wears 3 L via nasal cannula outpatient History of chronic bullous emphysema History of DVT of the left lower extremity maintained on eliquis Former smoker Gait dysfunction with generalized weakness GI prophylaxis DVT prophylaxis Full code Plan: Recommend to continue with current medications and management with pulmonary and nephrology following. Patient receiving hemodialysis again today and currently maintained on BiPAP. She was transferred back to the ICU this morning for increasing shortness of breath requiring BiPAP and has been on it continuously. Duonebs and oral prednisone taper. Encouraged increased activity as tolerated. Repeat am labs. Patient's blood pressures are soft during hemodialysis although not requiring pressor support and will continue to monitor closely. Recommend continue telemetry monitoring. Due to multiple complex medical issues, prognosis is extremely guarded. The impression and plan of care has been dictated by Carmen Yeboah, nurse practitioner as directed. Dr. Saadia MD I have performed a history and examination and MDM of this patient, discussed the same with the dictator, and agree with the dictator's assessment and plan as written ,documented as a scribe. Based on total visit time, I have performed more than 50% of the visit. Any additional findings or plans will be noted. Objective - Vital Signs Vital signs: Vital Signs Temp 97.7 F 12/31/21 04:38 Pulse 88 12/31/21 07:24 Resp 24 12/31/21 04:38 BP 169/82 12/31/21 04:38 Pulse Ox 98 12/31/21 04:38 FiO2 40 12/31/21 09:45 Intake & Output 12/30/21 12/31/21 12/31/21 18:59 06:59 18:59 Intake Total 118 540 Output Total 0 Balance 118 540 Weight 55.3 kg Intake: Oral 118 540 Output: Urine 0 Other: Voiding Method Bedside Commode Bedside Commode # Bowel Movements 1 - Labs CBC & Chem 7: 12/31/21 07:31 12/31/21 07:31 Labs: Abnormal Lab Results - Last 24 Hours (Table) 12/30/21 12/31/21 12/31/21 Range/Units 10:41 06:30 07:01 RBC 2.43 L (3.80-5.40) m/uL Hgb 8.6 L (11.4-16.0) gm/dL Hct 24.4 L (34.0-46.0) % MCV 100.8 H (80.0-100.0) fL MCH 35.3 H (25.0-35.0) pg MCHC (31.0-37.0) g/dL RDW 16.0 H (11.5-15.5) % Plt Count 59 L (150-450) k/uL Lymphocytes # (Manual) 0.42 L (1.0-4.8) k/uL Metamyelocytes # (Man) 0.05 H (0) k/uL ABG pO2 (83-108) mmHg ABG Total CO2 (19-24) mmol/L Sodium (137-145) mmol/L BUN (7-17) mg/dL Creatinine (0.52-1.04) mg/dL Glucose (74-99) mg/dL POC Glucose (mg/dL) 123 H 120 H (70-110) mg/dL Calcium (8.4-10.2) mg/dL 12/31/21 12/31/21 12/31/21 Range/Units 07:03 07:31 07:31 RBC 2.63 L (3.80-5.40) m/uL Hgb 8.5 L (11.4-16.0) gm/dL Hct 27.5 L (34.0-46.0) % MCV 104.7 H (80.0-100.0) fL MCH (25.0-35.0) pg MCHC 30.9 L (31.0-37.0) g/dL RDW 15.6 H (11.5-15.5) % Plt Count 68 L (150-450) k/uL Lymphocytes # (Manual) 0.83 L (1.0-4.8) k/uL Metamyelocytes # (Man) (0) k/uL ABG pO2 71 L (83-108) mmHg ABG Total CO2 26 H (19-24) mmol/L Sodium 132 L (137-145) mmol/L BUN 42 H (7-17) mg/dL Creatinine 5.18 H (0.52-1.04) mg/dL Glucose 122 H (74-99) mg/dL POC Glucose (mg/dL) (70-110) mg/dL Calcium 10.7 H (8.4-10.2) mg/dL
[2021-12-31] MEDS: predniSONE 10 MG TAB PO SCH (15:37)
[2021-12-31 18:35] LABS: % Iron Saturation 8.61 (12.00-45.00)
--- NOTE | 2021-12-31 19:06 | P.CONS ---
History of Present Illness - Reason for Consult Consult date: 12/31/21 Low platelets Requesting physician: Margarette Cruz - Chief Complaint Dyspnea - History of Present Illness Mrs. romero is a pleasant 71-year-old female patient we have been asked to see in the setting of acute drop in platelet counts. Patient was admitted late last week with complaints of dyspnea. Patient has renal failure and has been on dialysis. She was hospitalized late last month with similar symptoms. Platelet count was normal on admit. Over period of 4 lab draws platelet count dropped nearly in half, lowest count was in the 50s. Labs today show a platelet count 68,000. Hemoglobin has remained stable, she is on Aranesp for anemia of chronic kidney disease. There is no current evidence suggesting acute bleeding. Patient denies any history of low platelets. She had a left lower extremity DVT 12/13, Has been on eliquis. Review of Systems 10 point review of systems is negative except as stated in HPI Past Medical History Past Medical History: COPD, GERD/Reflux, Hearing Disorder / Deafness, Osteoarthritis (OA), Renal Disease Additional Past Medical History / Comment(s): Pt recently admitted to [facility] on 08/08/21 with left lower extremity DVT. 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 History of Any Multi-Drug Resistant Organisms: None Reported Past Surgical History: Hernia Repair, Hysterectomy, Tonsillectomy, Tubal Ligation Additional Past Surgical History / Comment(s): R inguinal hernia repair, colonoscopies Past Anesthesia/Blood Transfusion Reactions: No Reported Reaction, Postoperative Nausea & Vomiting (PONV) Past Psychological History: No Psychological Hx Reported Smoking Status: Former smoker Past Alcohol Use History: None Reported Past Drug Use History: None Reported - Past Family History Father Family Medical History: Cancer Additional Family Medical History / Comment(s): Lung cancer. Medications and Allergies Home Medications Medication Instructions Recorded Confirmed Type Mometasone/Formoterol [Dulera 200 2 puff INHALATION RT-BID 05/13/14 12/26/21 History Mcg-5 Mcg Inhaler] Denosumab [Prolia] 60 mg SQ Q180D 04/10/20 12/26/21 History Tiotropium 18 Mcg/Puff [Spiriva] 1 cap INHALATION RT-DAILY 04/10/20 12/26/21 History Ipratropium-Albuterol Nebulize 3 ml INHALATION RT-Q4H PRN ml 07/10/21 12/26/21 Rx [Duoneb 0.5 mg-3 mg/3 ml Soln] Albuterol Sulfate [Albuterol 2 puff INHALATION RT-Q6H PRN 08/08/21 12/26/21 History Sulfate Hfa] Acetaminophen Tab [Tylenol] 650 mg PO Q6HR PRN tab 08/09/21 12/26/21 Rx Apixaban [Eliquis] 5 mg PO BID 09/13/21 12/26/21 History Pantoprazole [Protonix] 40 mg PO AC-BRKFST 30 Days #30 tab 09/18/21 12/26/21 Rx Calcium Acetate [PhosLo] 1,334 mg PO TID-W/MEALS 30 Days 12/21/21 12/26/21 Rx #180 tab Darbepoetin Michele [Aranesp] 60 mcg SQ Q7D each 12/21/21 12/26/21 Rx Ipratropium-Albuterol Nebulize 3 ml INHALATION RT-QID 30 Days 12/21/21 12/26/21 Rx [Duoneb 0.5 mg-3 mg/3 ml Soln] #120 each amLODIPine [Norvasc] 5 mg PO DAILY #30 tab 12/21/21 12/26/21 Rx hydrALAZINE HCL [Apresoline] 50 mg PO TID 30 Days #90 tab 12/21/21 12/26/21 Rx predniSONE See Taper PO DIRECTED 12/26/21 12/26/21 History Allergies Allergy/AdvReac Type Severity Reaction Status Date / Time sulfamethoxazole Allergy Unknown Verified 12/26/21 22:24 [From Bactrim] trimethoprim [From Bactrim] Allergy Unknown Verified 12/26/21 22:24 Physical Exam Vitals: Vital Signs Temp Pulse Pulse Resp BP Pulse Ox FiO2 12/31/21 07:24 88 12/31/21 07:14 87 12/31/21 07:05 40 12/31/21 07:04 40 12/31/21 04:38 97.7 F 91 24 169/82 98 35 12/31/21 04:07 96 12/31/21 03:54 95 12/31/21 00:30 98.3 F 79 25 H 164/73 99 35 12/30/21 20:37 98.2 F 100 24 159/58 97 12/30/21 17:17 99 19 158/71 91 L 12/30/21 16:34 92 12/30/21 16:23 91 98 12/30/21 15:01 100 18 12/30/21 12:50 100 18 135/74 97 12/30/21 12:46 102 H 12/30/21 12:36 96 12/30/21 09:18 62 18 12/30/21 09:03 97 Intake and Output 12/30/21 12/31/21 12/31/21 22:59 06:59 14:59 Intake Total 0 540 Output Total 0 Balance 0 540 Intake: Oral 0 540 Output: Urine 0 Other: Voiding Method Bedside Commode Bedside Commode # Bowel Movements 1 Weight 55.3 kg - Constitutional General appearance: average body habitus, cooperative - EENT Eyes: anicteric sclerae, EOMI ENT: hearing grossly normal, normal oropharynx - Neck Neck: no lymphadenopathy - Respiratory Tripod positioning, labored resp Respiratory: bilateral: diminished - Cardiovascular Rhythm: regular Heart sounds: normal: S1, S2 Abnormal Heart Sounds: no systolic murmur, no diastolic murmur, no rub, no S3 Gallop, no S4 Gallop, no click, no other leg Peripheral Edema: bilateral: None - Gastrointestinal General gastrointestinal: no absent bowel sounds, no decreased bowel sounds, no distended, no hepatomegaly, no hyperactive bowel sounds, normal bowel sounds, no organomegaly, no rigid, no scaphoid, soft, no splenomegaly, no tenderness, no umbilical hernia, no ventral hernia - Integumentary Several small ecchymosis om the back - Neurologic Neurologic: CNII-XII intact (Grossly) - Musculoskeletal Musculoskeletal: generalized weakness, strength equal bilaterally - Psychiatric Psychiatric: A&O x's 3, appropriate affect, intact judgment & insight Results CBC & Chem 7: 12/31/21 07:31 12/31/21 07:31 Labs: Abnormal Lab Results - Last 24 Hours (Table) 12/30/21 12/30/21 12/31/21 Range/Units 09:30 10:41 06:30 RBC 2.43 L (3.80-5.40) m/uL Hgb 8.6 L (11.4-16.0) gm/dL Hct 24.4 L (34.0-46.0) % MCV 100.8 H (80.0-100.0) fL MCH 35.3 H (25.0-35.0) pg MCHC (31.0-37.0) g/dL RDW 16.0 H (11.5-15.5) % Plt Count 59 L (150-450) k/uL Lymphocytes # (Manual) 0.42 L (1.0-4.8) k/uL Metamyelocytes # (Man) 0.05 H (0) k/uL ABG pO2 (83-108) mmHg ABG Total CO2 (19-24) mmol/L Sodium 134 L (137-145) mmol/L BUN 19 H (7-17) mg/dL Creatinine 2.93 H (0.52-1.04) mg/dL Glucose 142 H (74-99) mg/dL POC Glucose (mg/dL) 123 H (70-110) mg/dL Calcium (8.4-10.2) mg/dL 12/31/21 12/31/21 12/31/21 Range/Units 07:01 07:03 07:31 RBC 2.63 L (3.80-5.40) m/uL Hgb 8.5 L (11.4-16.0) gm/dL Hct 27.5 L (34.0-46.0) % MCV 104.7 H (80.0-100.0) fL MCH (25.0-35.0) pg MCHC 30.9 L (31.0-37.0) g/dL RDW 15.6 H (11.5-15.5) % Plt Count (150-450) k/uL Lymphocytes # (Manual) (1.0-4.8) k/uL Metamyelocytes # (Man) (0) k/uL ABG pO2 71 L (83-108) mmHg ABG Total CO2 26 H (19-24) mmol/L Sodium (137-145) mmol/L BUN (7-17) mg/dL Creatinine (0.52-1.04) mg/dL Glucose (74-99) mg/dL POC Glucose (mg/dL) 120 H (70-110) mg/dL Calcium (8.4-10.2) mg/dL 12/31/21 Range/Units 07:31 RBC (3.80-5.40) m/uL Hgb (11.4-16.0) gm/dL Hct (34.0-46.0) % MCV (80.0-100.0) fL MCH (25.0-35.0) pg MCHC (31.0-37.0) g/dL RDW (11.5-15.5) % Plt Count (150-450) k/uL Lymphocytes # (Manual) (1.0-4.8) k/uL Metamyelocytes # (Man) (0) k/uL ABG pO2 (83-108) mmHg ABG Total CO2 (19-24) mmol/L Sodium 132 L (137-145) mmol/L BUN 42 H (7-17) mg/dL Creatinine 5.18 H (0.52-1.04) mg/dL Glucose 122 H (74-99) mg/dL POC Glucose (mg/dL) (70-110) mg/dL Calcium 10.7 H (8.4-10.2) mg/dL Chest x-ray: report reviewed Assessment and Plan (1) Thrombocytopenia Current Visit: Yes Status: Acute Priority: High Code(s): D69.6 - THROMBOCYTOPENIA, UNSPECIFIED SNOMED Code(s): 475642470 (2) Macrocytic anemia Current Visit: Yes Status: Chronic Priority: Medium Code(s): D53.9 - NUTRITIONAL ANEMIA, UNSPECIFIED SNOMED Code(s): 25374698 Plan: Acute plt drop is most likely r/t acute sepsis 2/2 COPD exac, volume overload from ESRD. R/O DIC Exposure to LMWH in Nov, consider HIT, ordered HIT ab. Transfused for platelet count less than 10,000 unless patient is symptomatic. Also, in the setting of sepsis may need to consider keeping platelets greater than 20,000-40,000, again, based on any signs or symptoms. Anemia most likely related to kidney disease. On chart review this has progressed over the last 6 months. Patient is being followed by Nephrology. They have ordered iron studies. attests: I've seen and examined patient, performed H&P, developed impression and plan of care. Discussed with dictator. Agree with documentation, dictated as a scribe
[2021-12-31] MEDS: amLODIPine 5 MG TAB PO SCH (21:54)
[2022-01-01] MEDS: PANTOPRAZOLE 40 MG TABLET PO SCH (06:52)
[2022-01-01] MEDS: IPRATROPIUM-ALBUTEROL 3 ML NEB INHALATION SCH ×4 (08:18→19:55)
[2022-01-01] MEDS: SYMBICORT 160-4.5 MCG INHALER INHALATION SCH ×2 (08:18→19:55)
--- NOTE | 2022-01-01 08:34 | XR ---
EXAMINATION TYPE: XR chest 1V portable DATE OF EXAM: 01/01/2022 COMPARISON: 12/31/2021 INDICATION: Pleural effusion TECHNIQUE: Single frontal view of the chest is obtained. FINDINGS: The heart size is normal. The pulmonary vasculature is normal. There is increased lung markings greater in the left lung base. Overall, this appears to be improving from comparison. Continued follow-up is recommended. Double-lumen port is present on the right with the tips in the superior vena cava region. IMPRESSION: 1. Improving bibasilar infiltrates. Continued follow-up is recommended.
[2022-01-01] MEDS: SENNOSIDES 8.6 MG TAB PO SCH ×2 (08:43→21:13)
[2022-01-01] MEDS: predniSONE 10 MG TAB PO SCH (08:44)
--- NOTE | 2022-01-01 09:10 | P.PN ---
Subjective Patient is seen in follow-up for acute kidney injury, hemodialysis dependent. Sitting up in bed. On Ventimask. States shortness of breath is better compared to yesterday. Vital signs are stable. General: Sitting up on bed. HEENT: On O2 mask. LUNGS: Breath sounds decreased. HEART: Rate and Rhythm are regular. ABDOMEN: Soft, no distention. EXTREMITITES: No edema. Objective - Vital Signs Vital signs: Vital Signs Temp 97.3 F L 01/01/22 08:00 Pulse 105 H 01/01/22 09:00 Resp 23 01/01/22 09:00 BP 143/58 01/01/22 09:00 Pulse Ox 95 01/01/22 09:00 FiO2 40 01/01/22 08:00 Intake & Output 12/31/21 01/01/22 01/01/22 18:59 06:59 18:59 Intake Total 800 Output Total 3000 0 0 Balance -2200 0 0 Weight 55.3 kg 57 kg Intake: Hemodialysis 800 Output: Urine 0 0 0 Hemodialysis 3000 - Labs CBC & Chem 7: 12/31/21 07:31 12/31/21 07:31 Labs: Abnormal Lab Results - Last 24 Hours (Table) 12/31/21 12/31/21 12/31/21 Range/Units 07:31 13:26 13:26 Plt Count 68 L (150-450) k/uL Lymphocytes # (Manual) 0.83 L (1.0-4.8) k/uL Fibrinogen 624 H (200-500) mg/dL Phosphorus 1.6 L (2.5-4.5) mg/dL Iron 18 L (50-170) ug/dL TIBC 211 L (228-460) ug/dL % Saturation 8.61 L (12.00-45.00) Transferrin 151.0 L (204.0-354.0) mg/dL Ferritin 408.0 H (10.0-291.0) ng/mL Assessment and Plan Plan: Assessment: 1. Acute kidney injury, hemodialysis dependent. Has permacath. Maintained on hemodialysis on Friday schedule. Serologies done November 2021 were negative. Dialysis was started 12/11/2021. 2. Acute hypoxic respiratory failure secondary to volume overload and COPD. 3. Chronic left hydronephrosis seen by urology. No interventions planned. 4. Chronic kidney disease stage III with baseline creatinine near 1.3 from September 2021. 5. Volume overload. 6. Acute on chronic systolic CHF with ejection fraction of 45-50% with moderate pulmonary hypertension. 7. Hypercalcemia. PhosLo held. Prior calcium levels have been normal. 8. Anemia of chronic kidney disease. Iron deficiency noted. 9. Hypophosphatemia from PhosLo. Plan: Hemodialysis again today and tomorrow. Wean FiO2. Monitor for renal recovery outpatient. Add IV iron. Add Neutra-Phos packet. Continue to hold PhosLo. Repeat labs in the morning. Check phosphorus again today.
[2022-01-01 09:48] LABS: HCT 29.9 % (34.0-46.0); HGB 8.9 gm/dL (11.4-16.0); Hypochromasia Marked; MCH 32.2 pg (25.0-35.0); MCHC 29.8 g/dL (31.0-37.0); Macrocytosis Marked; Mean Platelet Volume 9.3; Platelet Count 66 k/uL (150-450); RBC 2.77 m/uL (3.80-5.40); RDW 15.5 % (11.5-15.5); WBC 4.7 k/uL (3.8-10.6)
[2022-01-01 10:00] LABS: Calcium 9.6 mg/dL (8.4-10.2); Phosphorus 6.1 mg/dL (2.5-4.5); Potassium 4.6 mmol/L (3.5-5.1)
[2022-01-01] MEDS ORDERED: POTAS-SOD-PHOS 278-164-250 MG 1 EACH PACKET PO SCH ×2 (10:00→16:00)
[2022-01-01] MEDS: SODIUM FERRIC GLUCONAT-SUCROSE 125 MG in SODIUM CHLORIDE 0.9% 100 ML IVPB SCH (10:08)
[2022-01-01] MEDS: hydrALAZINE HCL 50 MG TAB PO SCH ×2 (10:52→21:13)
--- NOTE | 2022-01-01 11:47 | P.PN ---
Subjective Progress Note Date: 01/01/22 Principal diagnosis: Acute hypoxic respiratory failure secondary to fluid overload from end-stage renal disease 71-year-old female who was seen in room 265. The patient was seen in the emergency room, on December 26. The patient was having shortness of breath for a number of days prior to admission. The patient was recently inpatient here, and she was discharged on December 22. She spent her entire stay in the intensive care unit. The patient was requiring hemodialysis on most days. At various points during her last stay, she was on BiPAP, her nasal oxygen. Currently, the patient is on BiPAP settings of 10/5 and 40%. The patient is currently receiving hemodialysis. The patient is quite short of breath, and sitting up in bed. She denies any chest pain or chest discomfort. White count 4, hemoglobin 8.2, hematocrit 26.7, and platelet count 237,000. Sodium 134, potassium 4.1, chloride 96, CO2 31, BUN 40, creatinine 4.31. Troponin was 0.067. N-terminal proBNP was 19,600. Chest x-ray was consistent with fluid overload/pulmonary vas cular congestion. Progress note dated 12/28/2021. 71-year-old female seen again in room 365. The patient was recently inpatient, with an episode of respiratory failure, requiring transient intubation and mechanical ventilation. She was reevaluated in the emergency room on December 26 after having been discharged on December 22. The patient underwent hemodialysis yesterday, and 3 L was removed. She had hemodialysis again today in another 3 L was removed. The patient did use BiPAP at nighttime, with settings of 10/5 and 40%. The patient is receiving 3 L currently. She's not receiving any IV fluids. She does feel much better. White count 3.1, hemoglobin 8.3, hematocrit 26.9, and platelet count 99,000. Sodium 131, potassium 4.6, chlorides 97, CO2 24, BUN 27, and creatinine 3.72. Progress note dated 12/27/2021. 71-year-old female again seen in room 365. She's currently on 4 L. No IV fluids. The patient has had hemodialysis the last couple of days no new labs today. No chest x-ray today. Microbiology is negative. She is using BiPAP, intermittently, with settings of 10/5 and 40%. Today she's sleeping. No obvious respiratory distress. Progress note dated 12/30/2021. 71-year-old female seen again in room 365. The patient is currently on 3 L of oxygen. She's not receiving any IV fluids. She apparently did have hemodialysis yesterday. She is feeling a bit better. Still very short of breath with any activity. Labs today include a sodium 134, potassium 4.2, chl orides 103, CO2 22, BUN 19, and creatinine 2.93. Chest x-ray done December 29 shows changes of COPD, as well as some pulmonary vascular congestion. Reevaluated today on , patient was brought back to ICU this morning because of worsening shortness of breath, and required placement on BiPAP. Patient is now on BiPAP 11/28/40%. ABG showed a pO2 of 71 pCO2 43 pH of 7.36. Chest x-ray is showing worsening pulmonary edema/fluid overload from end-stage renal disease patient was seen by nephrology, and the plan is to hemodialyze the patient again this morning. In the meantime the patient seems to be comfortable on BiPAP, not in significant distress. She is only on 40% and she has adequate O2 saturation. WBC count is 5.2 hemoglobin is 8.5, electrolytes are normal BUN is 42 creatinine 5.18 Reevaluated today on 01/01/2022, patient is a bit better today compared to yesterday, she did receive hemodialysis yesterday, and she is scheduled to have another hemodialysis today. Chest x-ray is showing slight improvement in her interstitial edema, clinically the patient is feeling better, she is on 40% Ventimask, and again she is being considered for hemodialysis again later today. Definite improvement compared to the last 24 hours. Seen by nephrology, no major change otherwise. CBC is relatively unremarkable. Her electrolytes are normal BUN 31 creatinine 3.65 Objective - Vital Signs Vital signs: Vital Signs Temp 97.3 F L 01/01/22 08:00 Pulse 96 01/01/22 10:00 Resp 16 01/01/22 10:00 BP 142/96 01/01/22 10:00 Pulse Ox 98 01/01/22 10:00 FiO2 40 01/01/22 08:00 Intake & Output 12/31/21 01/01/22 01/01/22 18:59 06:59 18:59 Intake Total 800 Output Total 3000 0 0 Balance -2200 0 0 Weight 55.3 kg 57 kg Intake: Hemodialysis 800 Output: Urine 0 0 0 Hemodialysis 3000 - Exam Physical Exam: Revealed 71-year-old female on 40% Ventimask. In no distress Head: Atraumatic, normocephalic. HEENT:[Neck is supple.] [No neck masses.] [No thyromegaly.] [No JVD.] Chest: [Crackles persist bilaterally. Cardiac Exam: [Normal S1 and S2, no S3 gallop, no murmur.] Abdomen: [Soft, nontender, no megaly, no rebound, no guarding, normal bowel sounds.] Extremities: [No clubbing, no edema, no cyanosis.] Neurological Exam: [No focal neurologic deficit.] Alert and oriented 3. Psychiatric: Normal mood affect and normal mental status exam. Skin: No rashes. - Labs CBC & Chem 7: 01/01/22 08:29 01/01/22 09:09 Labs: Abnormal Lab Results - Last 24 Hours (Table) 12/31/21 12/31/21 01/01/22 Range/Units 13:26 13:26 08:29 RBC 2.77 L (3.80-5.40) m/uL Hgb 8.9 L (11.4-16.0) gm/dL Hct 29.9 L (34.0-46.0) % MCV 108.0 H (80.0-100.0) fL MCHC 29.8 L (31.0-37.0) g/dL Plt Count 66 L (150-450) k/uL Macrocytosis Marked A Fibrinogen 624 H (200-500) mg/dL BUN (7-17) mg/dL Creatinine (0.52-1.04) mg/dL Phosphorus 1.6 L (2.5-4.5) mg/dL Iron 18 L (50-170) ug/dL TIBC 211 L (228-460) ug/dL % Saturation 8.61 L (12.00-45.00) Transferrin 151.0 L (204.0-354.0) mg/dL Ferritin 408.0 H (10.0-291.0) ng/mL 01/01/22 Range/Units 09:09 RBC (3.80-5.40) m/uL Hgb (11.4-16.0) gm/dL Hct (34.0-46.0) % MCV (80.0-100.0) fL MCHC (31.0-37.0) g/dL Plt Count (150-450) k/uL Macrocytosis Fibrinogen (200-500) mg/dL BUN 31 H (7-17) mg/dL Creatinine 3.65 H (0.52-1.04) mg/dL Phosphorus 6.1 H (2.5-4.5) mg/dL Iron (50-170) ug/dL TIBC (228-460) ug/dL % Saturation (12.00-45.00) Transferrin (204.0-354.0) mg/dL Ferritin (10.0-291.0) ng/mL Assessment and Plan Assessment: Impression: Acute hypoxic respiratory failure secondary to fluid overload secondary to chronic kidney disease requiring hemodialysis. Chronic left hydronephrosis, seen by urology. Volume overload Hypercalcemia secondary to renal failure Chronic anemia secondary to chronic kidney disease History of underlying COPD History of GERD History of respiratory failure requiring short-term intubation and mechanical ventilation History of left lower extremity DVT History of osteoporosis History of diverticular disease Recommendation: Titrate oxygen accordingly Continue hemodialysis as per nephrology Continue to monitor in the ICU for the next 24 hours hemodialysis today Continue GI and DVT prophylaxis Prognosis seems to be very poor and guarded Time with Patient: Less than 30
[2022-01-01 12:13] LABS: Glucose,Whole Blood 97 mg/dL (70-110)
[2022-01-01 12:22] LABS: Basophils # (M) 0.05 k/uL (0-0.2); Eosinophils # (M) 0.05 k/uL (0-0.7); Lymphocytes # (M) 0.75 k/uL (1.0-4.8); Monocytes # (M) 0.24 k/uL (0-1.0); Neutrophils # (M) 3.62 k/uL (1.3-7.7); Neutrophils % (M) 77 %; Nucleated Red Blood Cells 0 /100 WBC (0-0); Total Cells Counted 100
[2022-01-01] MEDS ORDERED: MIDODRINE 5 MG TAB PO PRN (12:52)
--- NOTE | 2022-01-01 19:31 | P.PN ---
Subjective Progress Note Date: 01/01/22 This is a 71-year-old female who recently presented to the emergency department via EMS on BiPAP with extreme difficulty in breathing and shortness of breath. Patient reports she was at dialysis becoming extremely short of breath and EMS was called. She follows with Dr. Rosenberg in the outpatient setting with a past medical history of COPD, gastroesophageal reflux disease on a recent admission requiring hemodialysis with end-stage renal disease, chronic hypoxic respiratory failure normally on 3 L via nasal cannula at home, chronic bullous emphysema, history of left kidney removed, past history of DVT and former smoker denies any other illicit drug use or drinking. Patient was recently discharged after starting dialysis and was maintained on Friday//Friday with a permacath placement prior to discharge. Patient with significant weakness initially recommending rehab although patient and family were reluctant and went home with home care. Chest x-ray showed right central venous catheter tip in appropriate position, mild pulmonary vascular congestion with elevated BNP, similar prominent fibrosis and COPD changes from previous exams. Suggestive of overload. Nephrology along with pulmonary consulted and 2-D echo was ordered. Patient was started on DuoNeb treatments and home medications have been resumed as well as her prednisone taper being titrated down. Will have PT/OT therapy evaluate the patient as well. Labs on admission show a WBC of 5.4, hemoglobin of 8.8, platelets 147, sodium 132, potassium 4.4, BUN 42, creatinine 03.78, troponin 0.067, BNP 19,600 12/28/2021 Patient is seen and evaluated in follow-up today currently receiving hemodialysis with nephrology and pulmonary following closely. Patient is currently tolerating dialysis well on 3 L via nasal cannula. BiPAP on standby and at night as needed. Patient labs reviewed and hemoglobin currently stable. Patient is reporting some constipation and will add senna. Encouraged increased activity as tolerated. Pulmonary following along with nephrology. PT/OT to follow. 12/29/2021 Patient is currently lying in the bed. Awake alert and oriented 3. Breathing status is better. Requiring oxygen and platelets were nasal cannula. Patient is having hemodialysis today. Next and no complaints of chest pain. Patient did have episode of 11 beats of NSVT. Is symptomatic. Continued on telemetry monitoring. Patient has been afebrile. No complains of dizziness or lightheadedness. Next and nephrology and pulmonary is on board. Awaiting labs today. 12/31/2021 Patient is seen and evaluated in follow-up this morning apparently was an A team this morning for increasing shortness of breath and placed on BiPAP. FiO2 is 40% with a PEEP of 5. Patient was transferred to the ICU and also having some hypotension. Patient is receiving dialysis currently continued on BiPAP continues to report shortness of breath and exhaustion. Blood pressures are soft and per RN tech working on 3 L removal. Patient is not currently requiring any pressor support although blood pressures are extremely soft at 90 systolic. Kidney functions were worse with a creatinine of 5.18, sodium is 132 and potassium is 4.6. Hemoglobin is stable at 8.5 and platelets are low at 68. Patient oral anticoagulant placed on hold. Patient is afebrile with no reports of chest pain or palpitations noted. 01/01/2022 Patient is seen today in the ICU currently maintained on bipap and receiving hemodialysis. Patient continues to drop oxygen saturations quickly during dialysis as well as the blood pressures continue to drop. Receiving hemodialysis daily this admission. Wean FI02 as tolerated. Patient was maintained on ventimask. Patient hemoglobin is stable and receiving IV iron. platelets are low and eliquis on hold. Multiple medical consultations following. Significant weakness noted and recommend working with PT/OT daily once respiratory status improves. Oral intake is poor and encouraged oral intake. Chest xray today shows some improvement. Review of systems: Unable to obtain today as patient is lethargic on a BiPAP shortness of breath receiving hemodialysis PHYSICAL EXAMINATION: GENERAL: The patient is alert and oriented x3, on BiPAP, receiving hemodialysis. thin built, ill-appearing elderly female HEENT: Pupils are round and equally reacting to light. EOMI. no scleral icterus. No conjunctival pallor. Normocephalic, atraumatic. No pharyngeal erythema. No thyromegaly. CARDIOVASCULAR: S1 and S2 muffled PULMONARY: diminished breath sounds bilaterally with some scattered rhonchi and crackles noted. Wheezing not appreciated ABDOMEN: soft. Nontender on exam.. non-distended, normoactive bowel sounds. No palpable organomegaly. MUSCULOSKELETAL: No joint swelling or deformity. EXTREMITIES: No cyanosis, clubbing, or pedal edema. NEUROLOGICAL: Gross neurological examination did not reveal any focal deficits. Diffuse weakness SKIN: No rashes. Assessment: Shortness of breath with acute on chronic hypoxemic respiratory failure secondary to fluid volume overload with recent end-stage renal disease diagnosis requiring BiPAP Acute on chronic congestive heart failure, acute exacerbation with diastolic dysfunction, EF is 45-50% Recently placed permacath for end-stage renal disease maintained on hemodialysis Friday//Friday COPD history, not in exacerbation Chronic anemia, secondary to chronic kidney disease Acute on chronic hypoxic respiratory failure, chronically wears 3 L via nasal cannula outpatient History of chronic bullous emphysema History of DVT of the left lower extremity maintained on eliquis Former smoker Gait dysfunction with generalized weakness GI prophylaxis DVT prophylaxis Full code Plan: Recommend to continue with current medications and management with pulmonary and nephrology following. Patient receiving hemodialysis again today and currently maintained on BiPAP. Patient oxygen saturations not maintaining while on dialysis as patient was continued on ventimask. Titrate FI02 as tolerated. Patient being closely monitored in the ICU. Recommend to continue Duonebs and oral prednisone completed. Encouraged increased activity as tolerated. Repeat am labs. Patient's blood pressures are soft during hemodialysis although not requiring pressor support and will continue to monitor closely. Midrodrine as needed during dialysis. Recommend continued telemetry monitoring in the ICU for 24 more hours. Encouraged oral intake. Due to multiple complex medical issues, prognosis is extremely guarded. The impression and plan of care has been dictated by Carmen Yeboah, nurse practitioner as directed. Dr. Saadia MD I have performed a history and examination and MDM of this patient, discussed the same with the dictator, and agree with the dictator's assessment and plan as written ,documented as a scribe. Based on total visit time, I have performed more than 50% of the visit. Any additional findings or plans will be noted. Objective - Vital Signs Vital signs: Vital Signs Temp 97.3 F L 01/01/22 08:00 Pulse 96 01/01/22 10:00 Resp 16 01/01/22 10:00 BP 142/96 01/01/22 10:00 Pulse Ox 98 01/01/22 10:00 FiO2 40 01/01/22 08:00 Intake & Output 12/31/21 01/01/22 01/01/22 18:59 06:59 18:59 Intake Total 800 Output Total 3000 0 0 Balance -2200 0 0 Weight 55.3 kg 57 kg Intake: Hemodialysis 800 Output: Urine 0 0 0 Hemodialysis 3000 - Labs CBC & Chem 7: 01/01/22 08:29 01/01/22 09:09 Labs: Abnormal Lab Results - Last 24 Hours (Table) 12/31/21 12/31/21 01/01/22 Range/Units 13:26 13:26 09:09 Fibrinogen 624 H (200-500) mg/dL BUN 31 H (7-17) mg/dL Creatinine 3.65 H (0.52-1.04) mg/dL Phosphorus 1.6 L 6.1 H (2.5-4.5) mg/dL Iron 18 L (50-170) ug/dL TIBC 211 L (228-460) ug/dL % Saturation 8.61 L (12.00-45.00) Transferrin 151.0 L (204.0-354.0) mg/dL Ferritin 408.0 H (10.0-291.0) ng/mL
[2022-01-01] MEDS: amLODIPine 5 MG TAB PO SCH (21:13)
--- NOTE | 2022-01-01 21:31 | P.PN ---
Subjective Progress Note Date: 01/01/22 Principal diagnosis: Thrombocytopenia In f/u today the pt sleeping, not responding to questions, difficult to arouse Objective - Vital Signs Vital signs: Vital Signs Temp 96.5 F L 01/01/22 16:00 Pulse 88 01/01/22 21:00 Resp 24 01/01/22 21:00 BP 146/71 01/01/22 21:00 Pulse Ox 99 01/01/22 21:00 FiO2 40 01/01/22 21:12 Intake & Output 01/01/22 01/01/22 01/02/22 06:59 18:59 06:59 Intake Total 470 30 Output Total 0 1800 0 Balance 0 -1330 30 Weight 57 kg Intake: IV 70 30 0.9 70 30 Intake, IV Titration 100 Amount Sodium Ferric Gluconat- 100 Sucrose 125 mg In Sodium Chloride 0.9% 100 ml @ 100 mls/hr IVPB DAILY [facility] Rx#:[id number] Hemodialysis 300 Output: Urine 0 0 0 Hemodialysis 1800 - Constitutional General appearance: Present: mild distress, thin - EENT Eyes: Present: anicteric sclerae - Respiratory Respiratory: bilateral: diminished - Cardiovascular Details: tachycardic Heart sounds: normal: S1, S2 - Musculoskeletal Musculoskeletal: Present: generalized weakness - Psychiatric Psychiatric: Absent: A&O x's 3, appropriate affect, intact judgment & insight - Labs CBC & Chem 7: 01/01/22 08:29 01/01/22 09:09 Labs: Abnormal Lab Results - Last 24 Hours (Table) 01/01/22 01/01/22 Range/Units 08:29 09:09 RBC 2.77 L (3.80-5.40) m/uL Hgb 8.9 L (11.4-16.0) gm/dL Hct 29.9 L (34.0-46.0) % MCV 108.0 H (80.0-100.0) fL MCHC 29.8 L (31.0-37.0) g/dL Plt Count 66 L (150-450) k/uL Lymphocytes # (Manual) 0.75 L (1.0-4.8) k/uL Macrocytosis Marked A BUN 31 H (7-17) mg/dL Creatinine 3.65 H (0.52-1.04) mg/dL Phosphorus 6.1 H (2.5-4.5) mg/dL Assessment and Plan (1) Thrombocytopenia Current Visit: Yes Status: Acute Priority: High Code(s): D69.6 - THROMBOCYTOPENIA, UNSPECIFIED SNOMED Code(s): 196467999 (2) Macrocytic anemia Current Visit: Yes Status: Chronic Priority: Medium Code(s): D53.9 - NUTRITIONAL ANEMIA, UNSPECIFIED SNOMED Code(s): 50992865 Plan: Acute plt drop is most likely r/t acute sepsis 2/2 COPD exac, volume overload from ESRD. no evidence of DIC on lab analysis, coags normal, fibrinogen greater than 600 Exposure to LMWH in Nov, consider HIT, ordered HIT ab, still pending. Transfused for platelet count less than 10,000 unless patient is symptomatic. Also, in the setting of sepsis may need to consider keeping platelets greater than 20,000-40,000, again, based on any signs or symptoms. Platelets 66,000 today, no dramatic change from yesterday Anemia most likely related to kidney disease. On chart review this has progressed over the last 6 months. Patient is being followed by Nephrology. Parenteral iron is being administered today continue CBC monitoring
[2022-01-01] MEDS ORDERED: LORazepam 1 MG/0.5 ML VIAL IV PRN (23:18)
[2022-01-02 00:47] LABS: Calcium 9.3 mg/dL (8.4-10.2); Magnesium 2.1 mg/dL (1.6-2.3)
--- NOTE | 2022-01-02 06:31 | XR ---
EXAMINATION TYPE: XR chest 1V portable DATE OF EXAM: 01/02/2022 CLINICAL HISTORY: Difficulty breathing and fluid overload progress study. TECHNIQUE: Single AP portable upright view of the chest is obtained. COMPARISON: Chest x-ray from one day earlier and older studies. FINDINGS: Stable right internal jugular large-bore dialysis catheter. Background chronic emphysematous change with persistent elevated left hemidiaphragm and bibasilar opa cities. Cardiac silhouette size stable and upper limits of normal. Osseous structures remain deminera lized. IMPRESSION: Background Chronic emphysematous change with left greater than right bibasilar acute infi ltrates and/or atelectasis noted. No significant change from one day earlier
[2022-01-02 07:02] LABS: HCT 29.3 % (34.0-46.0); HGB 8.8 gm/dL (11.4-16.0); Hypochromasia Marked; MCV 106.6 fL (80.0-100.0); Macrocytosis Moderate; Mean Platelet Volume 9.1; RBC 2.75 m/uL (3.80-5.40); RDW 15.3 % (11.5-15.5); WBC 5.3 k/uL (3.8-10.6)
[2022-01-02 07:19] LABS: Calcium 9.5 mg/dL (8.4-10.2); Magnesium 2.1 mg/dL (1.6-2.3); Phosphorus 6.7 mg/dL (2.5-4.5); Platelet Count 66 k/uL (150-450); Potassium 4.2 mmol/L (3.5-5.1)
[2022-01-02] MEDS: IPRATROPIUM-ALBUTEROL 3 ML NEB INHALATION SCH ×3 (07:33→15:10)
[2022-01-02] MEDS: SYMBICORT 160-4.5 MCG INHALER INHALATION SCH (07:46)
[2022-01-02] MEDS: SENNOSIDES 8.6 MG TAB PO SCH ×2 (08:26→15:23)
[2022-01-02] MEDS: PANTOPRAZOLE 40 MG TABLET PO SCH ×2 (08:26→15:22)
[2022-01-02] MEDS: hydrALAZINE HCL 50 MG TAB PO SCH ×2 (08:26→08:43)
--- NOTE | 2022-01-02 08:43 | P.PN ---
Subjective Patient is seen in follow-up for acute kidney injury, hemodialysis dependent. Sitting up in bed. On Ventimask. Remains short of breath. Blood pressure stable. Vital signs are stable. General: Sitting up on bed. HEENT: On O2 mask. LUNGS: Breath sounds decreased. HEART: Rate and Rhythm are regular. ABDOMEN: Soft, no distention. EXTREMITITES: No edema. Objective - Vital Signs Vital signs: Vital Signs Temp 97.6 F 01/02/22 04:00 Pulse 103 H 01/02/22 07:47 Resp 41 H 01/02/22 07:00 BP 117/67 01/02/22 07:00 Pulse Ox 94 L 01/02/22 07:36 FiO2 40 01/02/22 07:36 Intake & Output 01/01/22 01/02/22 01/02/22 18:59 06:59 18:59 Intake Total 470 120 250 Output Total 1800 0 0 Balance -1330 120 250 Weight 53.9 kg Intake: IV 70 120 10 0.9 70 120 10 Intake, IV Titration 100 Amount Sodium Ferric Gluconat- 100 Sucrose 125 mg In Sodium Chloride 0.9% 100 ml @ 100 mls/hr IVPB DAILY [facility] Rx#:[id number] Oral 240 Hemodialysis 300 Output: Urine 0 0 0 Hemodialysis 1800 - Labs CBC & Chem 7: 01/02/22 06:31 01/02/22 06:31 Labs: Abnormal Lab Results - Last 24 Hours (Table) 01/01/22 01/01/22 01/01/22 Range/Units 08:29 09:09 23:39 RBC 2.77 L (3.80-5.40) m/uL Hgb 8.9 L (11.4-16.0) gm/dL Hct 29.9 L (34.0-46.0) % MCV 108.0 H (80.0-100.0) fL MCHC 29.8 L (31.0-37.0) g/dL Plt Count 66 L (150-450) k/uL Lymphocytes # (Manual) 0.75 L (1.0-4.8) k/uL Macrocytosis Marked A BUN 31 H 29 H (7-17) mg/dL Creatinine 3.65 H 2.95 H (0.52-1.04) mg/dL Glucose 72 L (74-99) mg/dL Phosphorus 6.1 H (2.5-4.5) mg/dL 01/02/22 01/02/22 Range/Units 06:31 06:31 RBC 2.75 L (3.80-5.40) m/uL Hgb 8.8 L (11.4-16.0) gm/dL Hct 29.3 L (34.0-46.0) % MCV 106.6 H (80.0-100.0) fL MCHC 30.0 L (31.0-37.0) g/dL Plt Count 66 L (150-450) k/uL Lymphocytes # (Manual) (1.0-4.8) k/uL Macrocytosis BUN 34 H (7-17) mg/dL Creatinine 3.75 H (0.52-1.04) mg/dL Glucose 73 L (74-99) mg/dL Phosphorus 6.7 H (2.5-4.5) mg/dL Assessment and Plan Plan: Assessment: 1. Acute kidney injury, hemodialysis dependent. Has permacath. Maintained on hemodialysis on Friday schedule. Serologies done November 2021 were negative. Dialysis was started 12/11/2021. 2. Acute hypoxic respiratory failure secondary to volume overload and COPD. 3. Chronic left hydronephrosis seen by urology. No interventions planned. 4. Chronic kidney disease stage III with baseline creatinine near 1.3 from September 2021. 5. Volume overload. Improved with ultrafiltration. 6. Acute on chronic systolic CHF with ejection fraction of 45-50% with moderate pulmonary hypertension. 7. Hypercalcemia. PhosLo held. Prior calcium levels have been normal. Calcium down in the normal range. 8. Anemia of chronic kidney disease. Iron deficiency noted. 9. Hypophosphatemia from PhosLo. Possibly lab error. Resolved. Phosphorus 6.7 today. Plan: Hemodialysis today. Wean FiO2. Monitor for renal recovery outpatient. Maintain IV iron. Add Renvela with meals. Add midodrine 5 mg to be given during dialysis if needed for hypotension. Hold amlodipine and hydralazine for systolic blood pressure less than 120. Repeat labs in the morning.
[2022-01-02] MEDS ORDERED: SEVELAMER 800 MG TAB PO SCH (08:45)
[2022-01-02] MEDS: SODIUM FERRIC GLUCONAT-SUCROSE 125 MG in SODIUM CHLORIDE 0.9% 100 ML IVPB SCH (09:01)
--- NOTE | 2022-01-02 12:15 | P.PN ---
Subjective Progress Note Date: 01/02/22 Principal diagnosis: Thrombocytopenia In f/u today the pt does respond to questions with slight lip movements and maybe a slight nod. She is nearly folded in half in bed, needed assistance to get her arms onto the bedside table. Unable to completely arouse Objective - Vital Signs Vital signs: Vital Signs Temp 97.9 F 01/02/22 12:00 Pulse 84 01/02/22 12:00 Resp 20 01/02/22 12:00 BP 93/44 01/02/22 12:00 Pulse Ox 96 01/02/22 12:00 FiO2 40 01/02/22 07:36 Intake & Output 01/01/22 01/02/22 01/02/22 18:59 06:59 18:59 Intake Total 470 120 300 Output Total 1800 0 0 Balance -1330 120 300 Weight 53.9 kg Intake: IV 70 120 60 0.9 70 120 60 Intake, IV Titration 100 Amount Sodium Ferric Gluconat- 100 Sucrose 125 mg In Sodium Chloride 0.9% 100 ml @ 100 mls/hr IVPB DAILY [facility] Rx#:[id number] Oral 240 Hemodialysis 300 Output: Urine 0 0 0 Hemodialysis 1800 - Constitutional General appearance: Present: disheveled, mild distress, thin - EENT EENT Comment(s): dried blood on the lips and inside mouth ENT: Present: hearing grossly normal - Respiratory Respiratory: bilateral: diminished - Cardiovascular Rhythm: regular - Peripheral edema leg Peripheral Edema: bilateral: None - Musculoskeletal Musculoskeletal: Present: generalized weakness - Labs CBC & Chem 7: 01/02/22 06:31 01/02/22 06:31 Labs: Abnormal Lab Results - Last 24 Hours (Table) 01/01/22 01/01/22 01/02/22 Range/Units 08:29 23:39 06:31 RBC (3.80-5.40) m/uL Hgb (11.4-16.0) gm/dL Hct (34.0-46.0) % MCV (80.0-100.0) fL MCHC (31.0-37.0) g/dL Plt Count (150-450) k/uL Lymphocytes # (Manual) 0.75 L (1.0-4.8) k/uL BUN 29 H 34 H (7-17) mg/dL Creatinine 2.95 H 3.75 H (0.52-1.04) mg/dL Glucose 72 L 73 L (74-99) mg/dL Phosphorus 6.7 H (2.5-4.5) mg/dL 01/02/22 Range/Units 06:31 RBC 2.75 L (3.80-5.40) m/uL Hgb 8.8 L (11.4-16.0) gm/dL Hct 29.3 L (34.0-46.0) % MCV 106.6 H (80.0-100.0) fL MCHC 30.0 L (31.0-37.0) g/dL Plt Count 66 L (150-450) k/uL Lymphocytes # (Manual) (1.0-4.8) k/uL BUN (7-17) mg/dL Creatinine (0.52-1.04) mg/dL Glucose (74-99) mg/dL Phosphorus (2.5-4.5) mg/dL - Imaging and Cardiology Chest x-ray: report reviewed Assessment and Plan (1) Thrombocytopenia Current Visit: Yes Status: Acute Priority: High Code(s): D69.6 - TH ROMBOCYTOPENIA, UNSPECIFIED SNOMED Code(s): 811582633 (2) Macrocytic anemia Current Visit: Yes Status: Chronic Priority: Medium Code(s): D53.9 - NUTR ITIONAL ANEMIA, UNSPECIFIED SNOMED Code(s): 47925707 Plan: Acute plt drop is most likely r/t acute sepsis 2/2 COPD exac, volume overload from ESRD. Plt stable today. No evidence of DIC on lab analysis Exposure to LMWH in Nov. HIT ab was negative. Transfused for platelet count less than 10,000 unless patient is symptomatic. Also, in the setting of sepsis may need to consider keeping platelets greater than 20,000-40,000, again, based on any signs or symptoms. Platelets 66,000 today, same as yesterday Anemia most likely related to kidney disease. On chart review this has progressed over the last 6 months. Patient is being followed by Nephrology. Parenteral iron administered Continue CBC monitoring attests: I have seen and examined pt, performed H&P, developed impression and plan of care. Discussed with dictator. Agree with documentation, dictated as a scribe.
--- NOTE | 2022-01-02 12:29 | P.PN ---
Subjective Progress Note Date: 01/02/22 Principal diagnosis: Acute hypoxic respiratory failure secondary to fluid overload from end-stage renal disease 71-year-old female who was seen in room 265. The patient was seen in the emergency room, on December 26. The patient was having shortness of breath for a number of days prior to admission. The patient was recently inpatient here, and she was discharged on December 22. She spent her entire stay in the intensive care unit. The patient was requiring hemodialysis on most days. At various points during her last stay, she was on BiPAP, her nasal oxygen. Currently, the patient is on BiPAP settings of 10/5 and 40%. The patient is currently receiving hemodialysis. The patient is quite short of breath, and sitting up in bed. She denies any chest pain or chest discomfort. White count 4, hemoglobin 8.2, hematocrit 26.7, and platelet count 237,000. Sodium 134, potassium 4.1, chloride 96, CO2 31, BUN 40, creatinine 4.31. Troponin was 0.067. N-terminal proBNP was 19,600. Chest x-ray was consistent with fluid overload/pulmonary vas cular congestion. Progress note dated 12/28/2021. 71-year-old female seen again in room 365. The patient was recently inpatient, with an episode of respiratory failure, requiring transient intubation and mechanical ventilation. She was reevaluated in the emergency room on December 26 after having been discharged on December 22. The patient underwent hemodialysis yesterday, and 3 L was removed. She had hemodialysis again today in another 3 L was removed. The patient did use BiPAP at nighttime, with settings of 10/5 and 40%. The patient is receiving 3 L currently. She's not receiving any IV fluids. She does feel much better. White count 3.1, hemoglobin 8.3, hematocrit 26.9, and platelet count 99,000. Sodium 131, potassium 4.6, chlorides 97, CO2 24, BUN 27, and creatinine 3.72. Progress note dated 12/27/2021. 71-year-old female again seen in room 365. She's currently on 4 L. No IV fluids. The patient has had hemodialysis the last couple of days no new labs today. No chest x-ray today. Microbiology is negative. She is using BiPAP, intermittently, with settings of 10/5 and 40%. Today she's sleeping. No obvious respiratory distress. Progress note dated 12/30/2021. 71-year-old female seen again in room 365. The patient is currently on 3 L of oxygen. She's not receiving any IV fluids. She apparently did have hemodialysis yesterday. She is feeling a bit better. Still very short of breath with any activity. Labs today include a sodium 134, potassium 4.2, chl orides 103, CO2 22, BUN 19, and creatinine 2.93. Chest x-ray done December 29 shows changes of COPD, as well as some pulmonary vascular congestion. Reevaluated today on , patient was brought back to ICU this morning because of worsening shortness of breath, and required placement on BiPAP. Patient is now on BiPAP 11/28/40%. ABG showed a pO2 of 71 pCO2 43 pH of 7.36. Chest x-ray is showing worsening pulmonary edema/fluid overload from end-stage renal disease patient was seen by nephrology, and the plan is to hemodialyze the patient again this morning. In the meantime the patient seems to be comfortable on BiPAP, not in significant distress. She is only on 40% and she has adequate O2 saturation. WBC count is 5.2 hemoglobin is 8.5, electrolytes are normal BUN is 42 creatinine 5.18 Reevaluated today on 01/01/2022, patient is a bit better today compared to yesterday, she did receive hemodialysis yesterday, and she is scheduled to have another hemodialysis today. Chest x-ray is showing slight improvement in her interstitial edema, clinically the patient is feeling better, she is on 40% Ventimask, and again she is being considered for hemodialysis again later today. Definite improvement compared to the last 24 hours. Seen by nephrology, no major change otherwise. CBC is relatively unremarkable. Her electrolytes are normal BUN 31 creatinine 3.65 Reevaluated today on 01/12/22, patient remains in the ICU, she seems to be extremely weak, debilitated, patient is almost folded in half in bed, she could verbally verbalize, seems to be in a bit of distress, but her O2 saturation is holding. Patient is on 40% Ventimask. Chest x-ray showed improvement in her interstitial edema, however nonetheless the patient continues to have pulmonary edema, and yesterday she had poor tolerance to hemodialysis. Patient had 1 L of fluid removed with dialysis yesterday. After evaluating the patient, I felt that the patient may end up requiring intubation and mechanical ventilation, however her overall prognosis is extremely poor, and I discussed her condition with the daughter over the phone. Suggested DO NOT RESUSCITATE CODE STATUS and possibly comfort care measures the daughter is going to discuss this with the rest of her family members and she will get back to us. WBC count today is 5.3 hemoglobin is 8.8. Elect lites are normal BUN is 34 creatinine 3.75. Chest x- ray showed bilateral emphysematous changes, and atelectasis. Less interstitial edema noted on the chest x-ray compared to yesterday Objective - Vital Signs Vital signs: Vital Signs Temp 97.9 F 01/02/22 12:00 Pulse 84 01/02/22 12:00 Resp 20 01/02/22 12:00 BP 93/44 01/02/22 12:00 Pulse Ox 96 01/02/22 12:00 FiO2 40 01/02/22 07:36 Intake & Output 01/01/22 01/02/22 01/02/22 18:59 06:59 18:59 Intake Total 470 120 300 Output Total 1800 0 0 Balance -1330 120 300 Weight 53.9 kg Intake: IV 70 120 60 0.9 70 120 60 Intake, IV Titration 100 Amount Sodium Ferric Gluconat- 100 Sucrose 125 mg In Sodium Chloride 0.9% 100 ml @ 100 mls/hr IVPB DAILY [facility] Rx#:[id number] Oral 240 Hemodialysis 300 Output: Urine 0 0 0 Hemodialysis 1800 - Exam Physical Exam: Revealed 71-year-old female on 40% Ventimask. Chronically ill, seems frail, debilitated, and in mild respiratory distress. Head: Atraumatic, normocephalic. HEENT:[Neck is supple.] [No neck masses.] [No thyromegaly.] [No JVD.] Chest: [Crackles persist bilaterally. Cardiac Exam: [Normal S1 and S2, no S3 gallop, no murmur.] Abdomen: [Soft, nontender, no megaly, no rebound, no guarding, normal bowel sounds.] Extremities: [No clubbing, no edema, no cyanosis.] Neurological Exam: Patient is generally weak, otherwise no gross focal neurologic deficits. Psychiatric: Cannot assess, patient is nonverbal, nods with her head only Skin: No rashes. - Labs CBC & Chem 7: 01/02/22 06:31 01/02/22 06:31 Labs: Abnormal Lab Results - Last 24 Hours (Table) 01/01/22 01/02/22 01/02/22 Range/Units 23:39 06:31 06:31 RBC 2.75 L (3.80-5.40) m/uL Hgb 8.8 L (11.4-16.0) gm/dL Hct 29.3 L (34.0-46.0) % MCV 106.6 H (80.0-100.0) fL MCHC 30.0 L (31.0-37.0) g/dL Plt Count 66 L (150-450) k/uL BUN 29 H 34 H (7-17) mg/dL Creatinine 2.95 H 3.75 H (0.52-1.04) mg/dL Glucose 72 L 73 L (74-99) mg/dL Phosphorus 6.7 H (2.5-4.5) mg/dL Assessment and Plan Assessment: Impression: Acute hypoxic respiratory failure secondary to fluid overload secondary to chronic kidney disease requiring hemodialysis. Chronic left hydronephrosis, seen by urology. Volume overload Hypercalcemia secondary to renal failure Chronic anemia secondary to chronic kidney disease History of underlying COPD History of GERD History of respiratory failure requiring short-term intubation and mechanical ventilation History of left lower extremity DVT History of osteoporosis History of diverticular disease Recommendation: Continue to monitor in the ICU Family to get back to us regarding CODE STATUS. Extremely poor prognosis Continue hemodialysis as per nephrology No hemodialysis planned for today. Continue GI and DVT prophylaxis Discussed her status with family/daughter over the phone, and waiting to hear from family regarding CODE STATUS. I am strongly recommending comfort care measures on this patient. Time with Patient: Less than 30
[2022-01-02 12:45] VITALS: TEMP 97
--- NOTE | 2022-01-02 14:57 | P.PN ---
Subjective Progress Note Date: 01/02/22 This is a 71-year-old female who recently presented to the emergency department via EMS on BiPAP with extreme difficulty in breathing and shortness of breath. Patient reports she was at dialysis becoming extremely short of breath and EMS was called. She follows with Dr. Rosenberg in the outpatient setting with a past medical history of COPD, gastroesophageal reflux disease on a recent admission requiring hemodialysis with end-stage renal disease, chronic hypoxic respiratory failure normally on 3 L via nasal cannula at home, chronic bullous emphysema, history of left kidney removed, past history of DVT and former smoker denies any other illicit drug use or drinking. Patient was recently discharged after starting dialysis and was maintained on Friday//Friday with a permacath placement prior to discharge. Patient with significant weakness initially recommending rehab although patient and family were reluctant and went home with home care. Chest x-ray showed right central venous catheter tip in appropriate position, mild pulmonary vascular congestion with elevated BNP, similar prominent fibrosis and COPD changes from previous exams. Suggestive of overload. Nephrology along with pulmonary consulted and 2-D echo was ordered. Patient was started on DuoNeb treatments and home medications have been resumed as well as her prednisone taper being titrated down. Will have PT/OT therapy evaluate the patient as well. Labs on admission show a WBC of 5.4, hemoglobin of 8.8, platelets 147, sodium 132, potassium 4.4, BUN 42, creatinine 03.78, troponin 0.067, BNP 19,600 12/28/2021 Patient is seen and evaluated in follow-up today currently receiving hemodialysis with nephrology and pulmonary following closely. Patient is currently tolerating dialysis well on 3 L via nasal cannula. BiPAP on standby and at night as needed. Patient labs reviewed and hemoglobin currently stable. Patient is reporting some constipation and will add senna. Encouraged increased activity as tolerated. Pulmonary following along with nephrology. PT/OT to follow. 12/29/2021 Patient is currently lying in the bed. Awake alert and oriented 3. Breathing status is better. Requiring oxygen and platelets were nasal cannula. Patient is having hemodialysis today. Next and no complaints of chest pain. Patient did have episode of 11 beats of NSVT. Is symptomatic. Continued on telemetry monitoring. Patient has been afebrile. No complains of dizziness or lightheadedness. Next and nephrology and pulmonary is on board. Awaiting labs today. 12/31/2021 Patient is seen and evaluated in follow-up this morning apparently was an A team this morning for increasing shortness of breath and placed on BiPAP. FiO2 is 40% with a PEEP of 5. Patient was transferred to the ICU and also having some hypotension. Patient is receiving dialysis currently continued on BiPAP continues to report shortness of breath and exhaustion. Blood pressures are soft and per RN tech working on 3 L removal. Patient is not currently requiring any pressor support although blood pressures are extremely soft at 90 systolic. Kidney functions were worse with a creatinine of 5.18, sodium is 132 and potassium is 4.6. Hemoglobin is stable at 8.5 and platelets are low at 68. Patient oral anticoagulant placed on hold. Patient is afebrile with no reports of chest pain or palpitations noted. 01/01/2022 Patient is seen today in the ICU currently maintained on bipap and receiving hemodialysis. Patient continues to drop oxygen saturations quickly during dialysis as well as the blood pressures continue to drop. Receiving hemodialysis daily this admission. Wean FI02 as tolerated. Patient was maintained on ventimask. Patient hemoglobin is stable and receiving IV iron. platelets are low and eliquis on hold. Multiple medical consultations following. Significant weakness noted and recommend working with PT/OT daily once respiratory status improves. Oral intake is poor and encouraged oral intake. Chest xray today shows some improvement. 01/02/2022 Patient is seen in follow-up this morning clinically deteriorating maintained on Ventimask and overall prognosis remains poor. CODE STATUS was discussed with family and agreeable to no code with possible informational [facility] hospice consult today. Patient meets inpatient criteria and family is agreeable to make the patient comfortable. Please refer to other dictations and other consultation notes for further HPI. Review of systems: Unable to obtain today as patient is lethargic on a Ventimask with shortness of breath PHYSICAL EXAMINATION: GENERAL: The patient is alert and oriented x1-2, lethargic on venti mask, thin built, ill-appearing elderly female HEENT: Pupils are round and equally reacting to light. EOMI. no scleral icterus. No conjunctival pallor. Normocephalic, atraumatic. No pharyngeal erythema. No thyromegaly. CARDIOVASCULAR: S1 and S2 muffled PULMONARY: diminished breath sounds bilaterally with some scattered rhonchi and crackles noted. Wheezing not appreciated ABDOMEN: soft. Nontender on exam.. non-distended, normoactive bowel sounds. No palpable organomegaly. MUSCULOSKELETAL: No joint swelling or deformity. EXTREMITIES: No cyanosis, clubbing, or pedal edema. NEUROLOGICAL: Gross neurological examination did not reveal any focal deficits. Diffuse weakness SKIN: No rashes. Assessment: Shortness of breath with acute on chronic hypoxemic respiratory failure secondary to fluid volume overload with recent end-stage renal disease diagnosis requiring BiPAP Acute on chronic congestive heart failure, acute exacerbation with diastolic dysfunction, EF is 45-50% Recently placed permacath for end-stage renal disease maintained on hemodialysis Friday//Friday COPD history, not in exacerbation Chronic anemia, secondary to chronic kidney disease Acute on chronic hypoxic respiratory failure, chronically wears 3 L via nasal cannula outpatient History of chronic bullous emphysema History of DVT of the left lower extremity maintained on eliquis Former smoker Gait dysfunction with generalized weakness GI prophylaxis DVT prophylaxis Full code Plan: Recommend to continue with current medications and management with pulmonary and nephrology following. Patient currently on Ventimask and intermittent BiPAP although clinically appears worse and per nursing staff patient is not eating and blood pressures are uncontrolled and CODE STATUS was addressed with pulmonary sled maker and family making her no code with discussion of possible comfort care measures. Informational hospice meeting was done and patient's family are agreeable to [facility] hospice with comfort measures only. Overall prognosis is extremely poor and guarded at this time. The impression and plan of care has been dictated by Carmen Yeboah, nurse practitioner as directed. Dr. Saadia MD I have performed a history and examination and MDM of this patient, discussed the same with the dictator, and agree with the dictator's assessment and plan as written ,documented as a scribe. Based on total visit time, I have performed more than 50% of the visit. Any additional findings or plans will be noted. Objective - Vital Signs Vital signs: Vital Signs Temp 97.6 F 01/02/22 08:00 Pulse 96 01/02/22 10:00 Resp 21 01/02/22 10:00 BP 116/50 01/02/22 10:00 Pulse Ox 96 01/02/22 10:00 FiO2 40 01/02/22 07:36 Intake & Output 01/01/22 01/02/22 01/02/22 18:59 06:59 18:59 Intake Total 470 120 280 Output Total 1800 0 0 Balance -1330 120 280 Weight 53.9 kg Intake: IV 70 120 40 0.9 70 120 40 Intake, IV Titration 100 Amount Sodium Ferric Gluconat- 100 Sucrose 125 mg In Sodium Chloride 0.9% 100 ml @ 100 mls/hr IVPB DAILY [facility] Rx#:[id number] Oral 240 Hemodialysis 300 Output: Urine 0 0 0 Hemodialysis 1800 - Labs CBC & Chem 7: 01/02/22 06:31 01/02/22 06:31 Labs: Abnormal Lab Results - Last 24 Hours (Table) 01/01/22 01/01/22 01/02/22 Range/Units 08:29 23:39 06:31 RBC (3.80-5.40) m/uL Hgb (11.4-16.0) gm/dL Hct (34.0-46.0) % MCV (80.0-100.0) fL MCHC (31.0-37.0) g/dL Plt Count (150-450) k/uL Lymphocytes # (Manual) 0.75 L (1.0-4.8) k/uL BUN 29 H 34 H (7-17) mg/dL Creatinine 2.95 H 3.75 H (0.52-1.04) mg/dL Glucose 72 L 73 L (74-99) mg/dL Phosphorus 6.7 H (2.5-4.5) mg/dL 01/02/22 Range/Units 06:31 RBC 2.75 L (3.80-5.40) m/uL Hgb 8.8 L (11.4-16.0) gm/dL Hct 29.3 L (34.0-46.0) % MCV 106.6 H (80.0-100.0) fL MCHC 30.0 L (31.0-37.0) g/dL Plt Count 66 L (150-450) k/uL Lymphocytes # (Manual) (1.0-4.8) k/uL BUN (7-17) mg/dL Creatinine (0.52-1.04) mg/dL Glucose (74-99) mg/dL Phosphorus (2.5-4.5) mg/dL
--- NOTE | 2022-01-02 15:06 | P.DS ---
Providers Date of admission: 12/26/21 20:49 Expected date of discharge: 01/02/22 Attending physician: Toro Hernandez MD Consults: 12/26/21 20:46 Consult Physician Routine Consulting Provider: Charity Goode Consult Reason/Comments: Dialysis patient. Volume overload Do you want consulting provider notified?: Yes 12/26/21 21:19 Consult Physician Routine Consulting Provider: Manju Lemus Consult Reason/Comments: Dyspnea, COPD and volume overload Do you want consulting provider notified?: Yes 12/31/21 06:07 Consult Physician Routine Consulting Provider: Brandyn Gregorio Consult Reason/Comments: low PLT Do you want consulting provider notified?: Yes, Notify in am Primary care physician: Carolyn Mahmood Hospital Course: Final diagnosis Shortness of breath with acute on chronic hypoxemic respiratory failure secondary to fluid volume overload with recent end-stage renal disease diagnosis requiring BiPAP Acute on chronic congestive heart failure, acute exacerbation with diastolic dysfunction, EF is 45-50% Recently placed permacath for end-stage renal disease maintained on hemodialysis Friday//Friday COPD history, not in exacerbation Chronic anemia, secondary to chronic kidney disease Acute on chronic hypoxic respiratory failure, chronically wears 3 L via nasal cannula outpatient History of chronic bullous emphysema History of DVT of the left lower extremity maintained on eliquis Former smoker Gait dysfunction with generalized weakness GI prophylaxis DVT prophylaxis No code Discharge disposition Patient is being transferred in a stable condition with guarded prognosis to inpatient admission criteria for [facility] comfort measures only. Total time taken is greater than 35 minutes. Hospital course This is a 71-year-old female who was recently admitted with worsening shortness of breath with volume overload and being closely monitored. Patient had clinical deterioration acquiring ICU monitoring and patient was maintained on BiPAP with intermittent Ventimask use. Patient continued to be extremely dyspneic and unable to tolerate dialysis due to her respiratory status as well as hypotension. Patient is not eating and extremely weak and CODE STATUS was addressed with family and have met with [facility] and patient meets criteria for inpatient GIP with comfort measures only and family is agreeable. Patient will be continued on comfort measures only. Currently no reports of chest pain, reports of continued worsening shortness of breath Patient is afebrile. No reports of nausea or vomiting and patient is not tolerating diet and not eating. Patient will be made comfort measures only today with [facility]. Please refer to previous dictations and other consultations including pulmonary fountain attendant for further HPI. Physical exam: Gen: This is a 71-year-old female awake although extremely lethargic and fatigued, alert and oriented 1-2, ill-appearing, elderly appearing female HEENT: Head is atraumatic, normocephalic. Pupils equal, round. Sclerae is anicteric. NECK: Supple. No JVD. No lymphadenopathy. No thyromegaly. LUNGS: Diminished breath sounds bilaterally with scattered rhonchi and crackles noted No intercostal retractions. HEART: Regular rate and rhythm. No murmur. ABDOMEN: Soft. Bowel sounds are present. No masses. No tenderness. EXTREMITIES: No pedal edema. No calf tenderness. NEUROLOGICAL: Patient is lethargic although arousable, alert and oriented x2. Diffusely weak Please refer to medication reconciliation sheet for a list of medications. The impression and plan of care has been dictated by Carmen Yeboah, Nurse Practitioner as directed. MD Alejandra I have performed a history and examination and MDM of this patient, discussed the same with the dictator, and agree with the dictator's assessment and plan as written ,documented as a scribe. Based on total visit time, I have performed more than 50% of the visit. Patient Condition at Discharge: Poor Plan - Discharge Summary Discharge Rx Participant: No New Discharge Prescriptions: No Action Mometasone/Formoterol [Dulera 200 Mcg-5 Mcg Inhaler] 2 puff INHALATION RT-BID Tiotropium 18 Mcg/Puff [Spiriva] 1 cap INHALATION RT-DAILY Denosumab [Prolia] 60 mg SQ Q180D Acetaminophen Tab [Tylenol] 650 mg PO Q6HR PRN tab PRN Reason: Mild Pain Or Fever > 100.5 Apixaban [Eliquis] 5 mg PO BID Darbepoetin Michele [Aranesp] 60 mcg SQ Q7D each amLODIPine [Norvasc] 5 mg PO DAILY #30 tab Calcium Acetate [PhosLo] 1,334 mg PO TID-W/MEALS 30 Days #180 tab Ipratropium-Albuterol Nebulize [Duoneb 0.5 mg-3 mg/3 ml Soln] 3 ml INHALATION RT-QID 30 Days #120 each Ipratropium-Albuterol Nebulize [Duoneb 0.5 mg-3 mg/3 ml Soln] 3 ml INHALATION RT-Q4H PRN ml PRN Reason: Shortness Of Breath Or Wheezing Albuterol Sulfate [Albuterol Sulfate Hfa] 2 puff INHALATION RT-Q6H PRN PRN Reason: Shortness Of Breath Pantoprazole [Protonix] 40 mg PO AC-BRKFST 30 Days #30 tab hydrALAZINE HCL [Apresoline] 50 mg PO TID 30 Days #90 tab predniSONE See Taper PO DIRECTED Discharge Medication List Mometasone/Formoterol [Dulera 200 Mcg-5 Mcg Inhaler] 2 puff INHALATION RT-BID 05/13/14 [History] Denosumab [Prolia] 60 mg SQ Q180D 04/10/20 [History] Tiotropium 18 Mcg/Puff [Spiriva] 1 cap INHALATION RT-DAILY 04/10/20 [History] Ipratropium-Albuterol Nebulize [Duoneb 0.5 mg-3 mg/3 ml Soln] 3 ml INHALATION RT-Q4H PRN ml 07/10/21 [Rx] Albuterol Sulfate [Albuterol Sulfate Hfa] 2 puff INHALATION RT-Q6H PRN 08/08/21 [History] Acetaminophen Tab [Tylenol] 650 mg PO Q6HR PRN tab 08/09/21 [Rx] Apixaban [Eliquis] 5 mg PO BID 09/13/21 [History] Pantoprazole [Protonix] 40 mg PO AC-BRKFST 30 Days #30 tab 09/18/21 [Rx] Calcium Acetate [PhosLo] 1,334 mg PO TID-W/MEALS 30 Days #180 tab 12/21/21 [Rx] Darbepoetin Michele [Aranesp] 60 mcg SQ Q7D each 12/21/21 [Rx] Ipratropium-Albuterol Nebulize [Duoneb 0.5 mg-3 mg/3 ml Soln] 3 ml INHALATION RT-QID 30 Days #120 each 12/21/21 [Rx] amLODIPine [Norvasc] 5 mg PO DAILY #30 tab 12/21/21 [Rx] hydrALAZINE HCL [Apresoline] 50 mg PO TID 30 Days #90 tab 12/21/21 [Rx] predniSONE See Taper PO DIRECTED 12/26/21 [History] Follow up Appointment(s)/Referral(s): Carolyn Mahmood DO [Primary Care Provider] - 1-2 days
[2022-01-02 15:20] VITALS: BP 119/52; PULSE 89; RESP 20
--- NOTE | 2022-01-03 23:03 | CDI ---
Documentation Clarification Form Date: 01/03/2022 10:47:07 PM From: Mony Zambrano Phone: Admit Date: 12/26/2021 08:49:00 PM Patient Name: Delmy Anderson Visit Number: [id number] Discharge Date: 01/02/2022 03:26:00 PM ATTENTION: The Clinical Documentation Specialists (CDI) and [facility] Coding Staff appreciate your assistance in clarifying documentation. Please respond to the clarification below the line at the bottom and electronically sign. The CDI & [facility] Coding staff will review the response and follow-up if needed. Please note: Queries are made part of the Legal Health Record. If you have any questions, please contact the author of this message via ITS. Dr. Kati Jara Your patient has the documented diagnosis of Acute on chronic congestive heart failure, diastolic dysfunction, EF is 45-50% per Dr. Zee Progress Note 12/29/21. Likewise, Acute on chronic systolic CHF with ejection fraction of 45- 50%per Dr. Smalls Progress Note 12/31/21. Additional information regarding the type of CHF is requested. History/Risk Factors: 71yo F, HTN w ESRD on HD, ACHRF, Emphysema, anemia, Pulm HTN, ATN Clinical Indicators: VS/Pulse OX: Pulse Ox 98 12/28/21 08:00 BNP: 19,600 Echocardiogram Results: Mild LV systolic dysfunction; Moderate PHTN, MR, Chest X Ray: Rt CVC catheter tip in appropriate position. 2. Mild pulmonary vascular congestion with primarily correlate serum BNP. 3. Similar prominent fibrosis and COPD changes. Treatment: Hemodialysis today. Wean FiO2. Monitor for renal recovery OP. Maintain IV iron. Add Renvela with meals. Add midodrine 5 mg to be given during dialysis if needed for hypotension. Hold amlodipine and hydralazine for systolic blood pressure less than 120. Repeat labs in the morning. In your professional opinion, can you please clarify the type of CHF if known? [ ] Acute on Chronic Systolic Heart Failure (reduced EF) [ ] Acute on Chronic Diastolic Heart Failure (preserved EF) [ ] Acute on Chronic Heart Failure Systolic & Diastolic Heart Failure [ ] Other, please specify [ x] Unable to determine (Template Last Revised: March 2020) MTDD
--- NOTE | 2022-01-10 09:23 | CDI ---
Documentation Clarification Form Date: 01/10/2022 09:09:48 AM From: Mony Zambrano Phone: Admit Date: 12/26/2021 08:49:00 PM Patient Name: Delmy Anderson Visit Number: [id number] Discharge Date: 01/02/2022 03:26:00 PM ATTENTION: The Clinical Documentation Specialists (CDI) and [facility] Coding Staff appreciate your assistance in clarifying documentation. Please respond to the clarification below the line at the bottom and electronically sign. The CDI & [facility] Coding staff will review the response and follow-up if needed. Please note: Queries are made part of the Legal Health Record. If you have any questions, please contact the author of this message via ITS. Dr. Kati Jara Your patient is receiving the following: daily Norvasc. Please clarify what condition/diagnosis is being treated. History/Risk Factors: 71yo F, ESRDon HD, ACHRF,Emphysema,anemia,Pulm HTN,ATN Clinical indicators: BP is elevated during the stay 12/26 175/78 12/27 158/55 12/28 119/78 12/31 169/82 Treatment: amlodipine [Norvasc] 5 mg PO DAILY #30 tab 12/21/21 What diagnosis are you treating with amlodipine [Norvasc] 5 mg PO DAILY? [ x] Hypertensive heart Disease [ ] No additional diagnosis [ ] Other, please specify [ ] Unable to determine (Template Last Reviewed: March 2020) MTDD
--- NOTE | 2022-01-12 11:36 | CDI ---
Documentation Clarification Form Date: 01/12/2022 11:25 AM From: Mony Zambrano Phone: Admit Date: 12/26/2021 08:49:00 PM Patient Name: Delmy Anderson Visit Number: [id number] Discharge Date: 01/02/2022 03:26:00 PM ATTENTION: The Clinical Documentation Specialists (CDI) and [facility] Coding Staff appreciate your assistance in clarifying documentation. Please respond to the clarification below the line at the bottom and electronically sign. The CDI & [facility] Coding staff will review the response and follow-up if needed. Please note: Queries are made part of the Legal Health Record. If you have any questions, please contact the author of this message via ITS. Dr. Estrella Tmaayo Thank you for answering the previous query; however, there seems to be conflicting information as to the type of Acute on Chronic CHF. Additional information regarding the type of CHF is requested. ACCHF, diastolic dysfunction, EF is 45-50% per Dr. Zee Progress Note 12/29/21. ACSHF with ejection fraction of 45-50%per Dr. Smalls Progress Note 12/31/21. 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 3.Similar prominent fibrosis and COPD changes. Treatment: Hemodialysis today. Wean FiO2.Monitor for renal recovery OP. Maintain IV iron. Add Renvela with meals. Add midodrine 5 mg to be given during dialysis if needed for hypotension. Hold amlodipine and hydralazine for systolic blood pressure less than 120. Repeat labs in the morning. In your professional opinion, can you please clarify the type of CHF if known? [ x] Systolic Heart Failure (reduced EF) [ ] Diastolic Heart Failure (preserved EF) [ ] Combined (Systolic and Diastolic) [ ] Other, please specify (Template Last Revised: March 2020) MTDD
== END 2022-01-02 15:26 | disposition still patient (30) | DRG 291 ==
LOC: EC 18:22 → 3SCARD 20:49 → 2SICU 12-31 06:59
PROVIDERS: ADMIT Internal Medicine; ATTEND Internal Medicine
PROC: 5A09357 Assistance with Respiratory Ventilation, Less than 24 Consecutive Hours, Continuous Positive Airway Pressure (ICD-10-PCS; principal; 2021-12-26)
PROC: 5A1D70Z Performance of Urinary Filtration, Intermittent, Less than 6 Hours Per Day (ICD-10-PCS; 2021-12-28)
DX: I13.2 Hypertensive heart and chronic kidney disease with heart failure and with stage 5 chronic kidney disease, or end stage renal disease (principal); I50.23 Acute on chronic systolic (congestive) heart failure; J96.21 Acute and chronic respiratory failure with hypoxia; N17.0 Acute kidney failure with tubular necrosis; N18.6 End stage renal disease; I47.20 Ventricular tachycardia, unspecified; N13.39 Other hydronephrosis; I27.20 Pulmonary hypertension, unspecified; D63.1 Anemia in chronic kidney disease; D53.9 Nutritional anemia, unspecified; J43.9 Emphysema, unspecified; I08.0 Rheumatic disorders of both mitral and aortic valves; D69.6 Thrombocytopenia, unspecified; I95.3 Hypotension of hemodialysis; J84.10 Pulmonary fibrosis, unspecified; Z99.81 Dependence on supplemental oxygen; Z79.01 Long term (current) use of anticoagulants; Z51.5 Encounter for palliative care; Z66 Do not resuscitate; H91.90 Unspecified hearing loss, unspecified ear; M54.9 Dorsalgia, unspecified; G89.29 Other chronic pain; R26.9 Unspecified abnormalities of gait and mobility; K59.00 Constipation, unspecified; K21.9 Gastro-esophageal reflux disease without esophagitis; M81.0 Age-related osteoporosis without current pathological fracture; R58 Hemorrhage, not elsewhere classified; R53.81 Other malaise; E61.1 Iron deficiency; Z79.51 Long term (current) use of inhaled steroids; Z79.899 Other long term (current) drug therapy; Z88.1 Allergy status to other antibiotic agents; Z86.718 Personal history of other venous thrombosis and embolism; Z87.891 Personal history of nicotine dependence; Z28.311 Partially vaccinated for COVID-19; Z99.2 Dependence on renal dialysis; Z87.19 Personal history of other diseases of the digestive system; Z90.5 Acquired absence of kidney
CPT/HCPCS: 36410; 36415; 36600; 71045; 71046; 76937; 80048; 80053; 82728; 82805; 83540; 83550; 83605; 83735; 83880; 84100; 84484; 85025; 85027; 85384; 85610; 85730; 86022; 90935; 93005; 93306; 94640; 94660; 94760; 99285

== ENCOUNTER 2022-01-02 14:32 | Inpatient (IN) | payer MEDICAID ==
[2022-01-02] MEDS ORDERED: ACETAMINOPHEN SUPPOSITORY 650 MG SUPP RECTAL PRN (14:35)
[2022-01-02] MEDS ORDERED: ONDANSETRON 4 MG/2 ML VIAL IVP PRN (14:35)
[2022-01-02] MEDS ORDERED: ATROPINE OPHTH SOLN 1% 5ML BTL SUBLINGUAL PRN (14:35)
[2022-01-02] MEDS ORDERED: MORPHINE SULFATE 2 MG/ML SYRINGE IV PRN (14:35)
[2022-01-02] MEDS ORDERED: LORazepam 1 MG/0.5 ML VIAL IV PRN (14:35)
[2022-01-02] MEDS ORDERED: MORPHINE SULFATE (100 MG/2 ML) 100 MG in SODIUM CHLORIDE 0.9% 100 ML IV SCH (14:45)
[2022-01-02] MEDS ORDERED: SCOPOLAMINE 1 MG/72 HR PATCH TRANSDERM SCH (15:00)
[2022-01-02 23:43] VITALS: RESP 18
--- NOTE | 2022-01-03 10:26 | P.HPIM ---
History of Present Illness H&P Date: 01/02/22 This is a 71-year-old female who recently presented to the emergency department via EMS on BiPAP with extreme difficulty in breathing and shortness of breath. Patient reports she was at dialysis becoming extremely short of breath and EMS was called. She follows with Dr. Rosenberg in the outpatient setting with a past medical history of COPD, gastroesophageal reflux disease on a recent admission requiring hemodialysis with end-stage renal disease, chronic hypoxic respiratory failure normally on 3 L via nasal cannula at home, chronic bullous emphysema, history of left kidney removed, past history of DVT and former smoker denies any other illicit drug use or drinking. Patient was recently discharged after starting dialysis and was maintained on Friday//Friday with a permacath placement prior to discharge. Patient with significant weakness initially recommending rehab although patient and family were reluctant and went home with home care. Chest x-ray showed right central venous catheter tip in appropriate position, mild pulmonary vascular congestion with elevated BNP, si milar prominent fibrosis and COPD changes from previous exams. Suggestive of overload. Nephrology along with pulmonary consulted and 2-D echo was ordered. Patient was started on DuoNeb treatments and home medications have been resumed as well as her prednisone taper being titrated down. Will have PT/OT therapy evaluate the patient as well. 01/02/2022 Patient has been here since December 26 after recent admission and discharge requiring hemodialysis and continued oxygen for hypoxic respiratory failure. Patient rehospitalized 3 days later with worsening shortness of breath inability to tolerate dialysis with hypotension and continued volume overload. Patient continued to clinically deteriorate being closely monitored in the ICU and CODE STATUS was addressed today with pulmonary office services specialist and made no code. Hospice consult was placed for informational with family and family agreeable to make the patient comfortable with comfort care measures only. We will continue to follow during hospitalization with [facility] hospice. Review Of Systems: Unable to obtain as patient is lethargic and dyspneic PHYSICAL EXAMINATION: GENERAL: The patient is alert and oriented x1-2, extremely lethargic, ill- appearing maintained on Ventimask along with BiPAP, dyspneic HEENT: Pupils are round and equally reacting to light. EOMI. no scleral icterus. No conjunctival pallor. Normocephalic, atraumatic. No pharyngeal erythema. No thyromegaly. CARDIOVASCULAR: S1 and S2 muffled PULMONARY: diminished breath sounds bilaterally with some scattered rhonchi and crackles noted. Wheezing not appreciated on exam ABDOMEN: soft. Nontender on exam.. non-distended, normoactive bowel sounds. No palpable organomegaly. MUSCULOSKELETAL: No joint swelling or deformity. EXTREMITIES: No cyanosis, clubbing, or pedal edema. NEUROLOGICAL: Gross neurological examination did not reveal any focal deficits. Diffuse weakness SKIN: No rashes. Assessment: Shortness of breath with acute on chronic hypoxemic respiratory failure secondary to fluid volume overload with recent end-stage renal disease diagnosis requiring BiPAP Recently placed permacath for end-stage renal disease maintained on hemodialysis Friday//Friday COPD history, not in exacerbation Acute on chronic hypoxic respiratory failure, chronically wears 3 L via nasal cannula outpatient History of chronic bullous emphysema History of DVT of the left lower extremity maintained on eliquis Former smoker Gait dysfunction with generalized weakness GI prophylaxis DVT prophylaxis Full code Plan: Patient was admitted and placed on BiPAP having worsening shortness of breath and inability to tolerate dialysis with hypotension and patient was brought to the ICU. Patient has had prolonged hospitalization with 2 recent readmissions for this requiring hemodialysis. CODE STATUS was addressed and made no code and informational hospice meeting was provided and family agreeable to sign onto [facility] with comfort measures only. We will continue to follow with [facility] and continue with families request of comfort measures only. Due to multiple complex medical issues, Overall prognosis is extremely poor and guarded. The impression and plan of care has been dictated by Carmen Yeboah, nurse practitioner as directed. Dr. Saadia MD I have performed a history and examination and MDM of this patient, discussed the same with the dictator, and agree with the dictator's assessment and plan as written ,documented as a scribe. Based on total visit time, I have performed more than 50% of the visit. Any additional findings or plans will be noted. Past Medical History Past Medical History: COPD, GERD/Reflux, Hearing Disorder / Deafness, Os teoarthritis (OA), Renal Disease Additional Past Medical History / Comment(s): Pt recently admitted to [facility] on 08/08/21 with left lower extremity DVT. 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 History of Any Multi-Drug Resistant Organisms: None Reported Past Surgical History: Hernia Repair, Hysterectomy, Tonsillectomy, Tubal Ligation Additional Past Surgical History / Comment(s): R inguinal hernia repair, colonoscopies Past Anesthesia/Blood Transfusion Reactions: No Reported Reaction, Postoperative Nausea & Vomiting (PONV) Past Psychological History: No Psychological Hx Reported Smoking Status: Former smoker Past Alcohol Use History: None Reported Past Drug Use History: None Reported - Past Family History Father Family Medical History: Cancer Additional Family Medical History / Comment(s): Lung cancer. Medications and Allergies Home Medications Medication Instructions Recorded Confirmed Type Mometasone/Formoterol [Dulera 200 2 puff INHALATION RT-BID 05/13/14 01/02/22 History Mcg-5 Mcg Inhaler] Denosumab [Prolia] 60 mg SQ Q180D 04/10/20 01/02/22 History Tiotropium 18 Mcg/Puff [Spiriva] 1 cap INHALATION RT-DAILY 04/10/20 01/02/22 History Ipratropium-Albuterol Nebulize 3 ml INHALATION RT-Q4H PRN ml 07/10/21 01/02/22 Rx [Duoneb 0.5 mg-3 mg/3 ml Soln] Albuterol Sulfate [Albuterol 2 puff INHALATION RT-Q6H PRN 08/08/21 01/02/22 History Sulfate Hfa] Acetaminophen Tab [Tylenol] 650 mg PO Q6HR PRN tab 08/09/21 01/02/22 Rx Apixaban [Eliquis] 5 mg PO BID 09/13/21 01/02/22 History Pantoprazole [Protonix] 40 mg PO AC-BRKFST 30 Days #30 tab 09/18/21 01/02/22 Rx Calcium Acetate [PhosLo] 1,334 mg PO TID-W/MEALS 30 Days 12/21/21 01/02/22 Rx #180 tab Darbepoetin Michele [Aranesp] 60 mcg SQ Q7D each 12/21/21 01/02/22 Rx Ipratropium-Albuterol Nebulize 3 ml INHALATION RT-QID 30 Days 12/21/21 01/02/22 Rx [Duoneb 0.5 mg-3 mg/3 ml Soln] #120 each amLODIPine [Norvasc] 5 mg PO DAILY #30 tab 12/21/21 01/02/22 Rx hydrALAZINE HCL [Apresoline] 50 mg PO TID 30 Days #90 tab 12/21/21 01/02/22 Rx predniSONE See Taper PO DIRECTED 12/26/21 01/02/22 History Allergies Allergy/AdvReac Type Severity Reaction Status Date / Time sulfamethoxazole Allergy Unknown Verified 12/26/21 22:24 [From Bactrim] trimethoprim [From Bactrim] Allergy Unknown Verified 12/26/21 22:24 Physical Exam Vitals: Vital Signs Resp 01/02/22 22:47 18 Intake and Output 01/02/22 01/03/22 01/03/22 22:59 06:59 14:59 Intake Total 36.482 15.878 Output Total 0 Balance 36.482 15.878 Intake: Intake, IV Titration 36.482 15.878 Amount Morphine Sulfate (100 mg/ 36.482 15.878 2 ml) 100 mg In Sodium Chloride 0.9% 100 ml @ 1 MG/HR 1.02 mls/hr IV . Q24H [facility] Rx#:[id number] Output: Urine 0
--- NOTE | 2022-01-03 10:30 | P.DS ---
Providers Date of admission: 01/02/22 15:27 Expected date of discharge: 01/03/22 Attending physician: Toro Hernandez MD Primary care physician: Carolyn Mahmood Hospital Course: Preliminary cause of End-stage renal disease Final diagnosis Shortness of breath with acute on chronic hypoxemic respiratory failure secondary to fluid volume overload with recent end-stage renal disease diagnosis requiring BiPAP Acute on chronic congestive heart failure, acute exacerbation with diastolic dysfunction, EF is 45-50% Recently placed permacath for end-stage renal disease maintained on hemodialysis Friday//Friday COPD history, not in exacerbation Chronic anemia, secondary to chronic kidney disease Acute on chronic hypoxic respiratory failure, chronically wears 3 L via nasal cannula outpatient History of chronic bullous emphysema History of DVT of the left lower extremity maintained on eliquis Former smoker Gait dysfunction with generalized weakness GI prophylaxis DVT prophylaxis No code Discharge disposition Patient has . According to nursing documentation time of was 0012 on 01/03/2022. Patient was placed on comfort measures only with [facility]. Hospital course This is a 71-year-old female who was recently admitted for severe hypoxia COPD exacerbation with renal failure requiring hemodialysis and received a dialysis catheter and continued on dialysis subsequently discharged and recently readmitted 3 days later with extreme volume overload and inability to tolerate dialysis. Patient also with severe shortness of breath requiring Ventimask and BiPAP. CODE STATUS was addressed with pulmonary casting machine service operator and made no code family requesting [facility] informational and met with the family at bedside agreeable to sign on with comfort measures only. Please refer to previous dictations and pulmonary casting machine service operator consultation for further HPI. The impression and plan of care has been dictated by Carmen Yeboah, Nurse Practitioner as directed. Dr. Saadia MD I have performed a history and examination and MDM of this patient, discussed the same with the dictator, and agree with the dictator's assessment and plan as written ,documented as a scribe. Based on total visit time, I have performed more than 50% of the visit. Patient Condition at Discharge: Poor Plan - Discharge Summary New Discharge Prescriptions: No Action Mometasone/Formoterol [Dulera 200 Mcg-5 Mcg Inhaler] 2 puff INHALATION RT-BID Tiotropium 18 Mcg/Puff [Spiriva] 1 cap INHALATION RT-DAILY Denosumab [Prolia] 60 mg SQ Q180D Acetaminophen Tab [Tylenol] 650 mg PO Q6HR PRN tab PRN Reason: Mild Pain Or Fever > 100.5 Apixaban [Eliquis] 5 mg PO BID Darbepoetin Michele [Aranesp] 60 mcg SQ Q7D each amLODIPine [Norvasc] 5 mg PO DAILY #30 tab Calcium Acetate [PhosLo] 1,334 mg PO TID-W/MEALS 30 Days #180 tab Ipratropium-Albuterol Nebulize [Duoneb 0.5 mg-3 mg/3 ml Soln] 3 ml INHALATION RT-QID 30 Days #120 each Ipratropium-Albuterol Nebulize [Duoneb 0.5 mg-3 mg/3 ml Soln] 3 ml INHALATION RT-Q4H PRN ml PRN Reason: Shortness Of Breath Or Wheezing Albuterol Sulfate [Albuterol Sulfate Hfa] 2 puff INHALATION RT-Q6H PRN PRN Reason: Shortness Of Breath Pantoprazole [Protonix] 40 mg PO AC-BRKFST 30 Days #30 tab hydrALAZINE HCL [Apresoline] 50 mg PO TID 30 Days #90 tab predniSONE See Taper PO DIRECTED Discharge Medication List Mometasone/Formoterol [Dulera 200 Mcg-5 Mcg Inhaler] 2 puff INHALATION RT-BID 05/13/14 [History] Denosumab [Prolia] 60 mg SQ Q180D 04/10/20 [History] Tiotropium 18 Mcg/Puff [Spiriva] 1 cap INHALATION RT-DAILY 04/10/20 [History] Ipratropium-Albuterol Nebulize [Duoneb 0.5 mg-3 mg/3 ml Soln] 3 ml INHALATION RT-Q4H PRN ml 07/10/21 [Rx] Albuterol Sulfate [Albuterol Sulfate Hfa] 2 puff INHALATION RT-Q6H PRN 08/08/21 [History] Acetaminophen Tab [Tylenol] 650 mg PO Q6HR PRN tab 08/09/21 [Rx] Apixaban [Eliquis] 5 mg PO BID 09/13/21 [History] Pantoprazole [Protonix] 40 mg PO AC-BRKFST 30 Days #30 tab 09/18/21 [Rx] Calcium Acetate [PhosLo] 1,334 mg PO TID-W/MEALS 30 Days #180 tab 12/21/21 [Rx] Darbepoetin Michele [Aranesp] 60 mcg SQ Q7D each 12/21/21 [Rx] Ipratropium-Albuterol Nebulize [Duoneb 0.5 mg-3 mg/3 ml Soln] 3 ml INHALATION RT-QID 30 Days #120 each 12/21/21 [Rx] amLODIPine [Norvasc] 5 mg PO DAILY #30 tab 12/21/21 [Rx] hydrALAZINE HCL [Apresoline] 50 mg PO TID 30 Days #90 tab 12/21/21 [Rx] predniSONE See Taper PO DIRECTED 12/26/21 [History] Discharge Disposition: - Preliminary Cause of Preliminary Cause of : End-stage renal disease
== END 2022-01-03 02:32 | disposition expired | DRG 951 ==
LOC: 2SICU 15:27 → 5NMEDONC 20:55
PROVIDERS: ADMIT Internal Medicine; ATTEND Internal Medicine
PROC: 5A09357 Assistance with Respiratory Ventilation, Less than 24 Consecutive Hours, Continuous Positive Airway Pressure (ICD-10-PCS; principal; 2022-01-02)
DX: Z51.5 Encounter for palliative care (principal); N18.6 End stage renal disease; I50.33 Acute on chronic diastolic (congestive) heart failure; J96.21 Acute and chronic respiratory failure with hypoxia; J43.9 Emphysema, unspecified; D63.1 Anemia in chronic kidney disease; H91.90 Unspecified hearing loss, unspecified ear; Z79.01 Long term (current) use of anticoagulants; Z79.51 Long term (current) use of inhaled steroids; Z79.899 Other long term (current) drug therapy; Z86.718 Personal history of other venous thrombosis and embolism; Z87.891 Personal history of nicotine dependence; Z90.710 Acquired absence of both cervix and uterus; Z88.2 Allergy status to sulfonamides; Z88.1 Allergy status to other antibiotic agents; Z99.2 Dependence on renal dialysis